=== PATIENT | female | born 1945 | race Caucasian/White ===

== ENCOUNTER 2022-08-08 08:55 | Outpatient (OUT) | payer MEDICARE, SELFPAY ==
--- NOTE | 2022-08-08 09:14 | CT_ITS ---
The [address] [address] Patient Name: NORA COON MRN: [id number] date: 1945 Sex: F Assigned Patient Location: CT Current Patient Location: CT Accession/Order Number: [id number] Exam Date: 08/08/2022 09:25 Report Date: 08/08/2022 12:47 At the request of: GOOD DAN Procedure: CT lung screening low-dose EXAMINATION: CT lung screening low-dose HISTORY: SMOKER COMPARISON: No relevant comparison available. TECHNIQUE: Axial, Coronal, and Sagittal images were created without the administration of IV contrast material. Dose reduction techniques were achieved by using automated exposure control and/or adjustment of mA and/or kV according to patient size and/or use of iterative reconstruction technique. FINDINGS: LUNGS: 7 mm poorly marginated opacity within left lower lobe superior segment. Tiny calcified granuloma within right lower lobe lateral basilar segment. Mild emphysematous changes. PLEURA: No mass, effusion, or pneumothorax. VASCULATURE: No abnormality. PHILLY: No mass or pathologic adenopathy. MEDIASTINUM: No mass or pathologic adenopathy. CARDIAC: No enlargement, pericardial thickening, or significant calcification. AORTA: No aneurysm or dissection. CHEST WALL: No mass or axillary adenopathy BONES: Marked degenerative changes of the glenohumeral joints bilaterally. No bone lesion or fracture. LIMITED ABDOMEN: No suspicious findings. Limited images of the upper abdomen. OTHER: Negative. IMPRESSION: 1. Lung-RADS Category 4A- Suspicious. Findings for which additional diagnostic testing and/ or tissue sampling is recommended. 3 month LDCT; PET/CT may be used when there is a >= 8 mm solid component. 2. Nonspecific nodule versus infiltrate within left lower lobe superior segment. Follow-up CT chest in 3 months is recommended to document stability. Electronically authenticated by: ABIDA REICH Date: 08/08/2022 12:47
== END 2022-08-08 08:56 ==
LOC: CT 09:03
PROVIDERS: PCP Family Medicine; Visit Provider Nurse Practitioner Family
DX: Z87.891 Personal history of nicotine dependence (principal); R91.8 Other nonspecific abnormal finding of lung field
CPT/HCPCS: 71271

== ENCOUNTER 2022-10-03 15:25 | Outpatient (OUT) | payer MEDICARE, SELFPAY ==
[2022-10-03 15:40] LABS: Bilirubin Urine NEGATIVE (NEGATIVE); Blood Urine NEGATIVE (NEGATIVE); Clarity Urine CLEAR (CLEAR); Color Urine LT. YELLOW (YELLOW); Glucose Urine UA NEGATIVE (NEGATIVE); Ketones Urine NEGATIVE (NEGATIVE); Leukocyte Esterase Urine NEGATIVE (NEGATIVE); Nitrite Urine NEGATIVE (NEGATIVE); Protein Urine NEGATIVE (NEG/TRACE); Urobilinogen Urine 0.2 EU/dL (0.2-1.0); pH Urine 6.5 (5.0-9.0)
[2022-10-03 15:42] LABS: Hematocrit 33.6 % (36.0-48.0); Hemoglobin 11.4 g/dL (12.0-16.0); Mean Corpuscular HGB Conc 33.9 g/dL (29.9-35.2); Mean Corpuscular Hemoglobin 32.4 pg (26.7-34.0); Mean Corpuscular Volume 95.5 fL (81.0-99.0); Mean Platelet Volume 9.4 fL (9.5-13.5); Platelet Count 352 10^3/uL (150-450); Red Blood Count 3.52 10^6/uL (4.20-5.40); Red Cell Distribution Width 13.4 % (11.0-15.0); White Blood Count 7.9 10^3/uL (4.0-11.0)
[2022-10-03 16:09] LABS: Total Protein Urine Random <6.0 mg/dL (<=11.9)
[2022-10-03 16:14] LABS: Percent Iron Saturation 12.3 %
[2022-10-03 16:24] LABS: Alanine Aminotransferase 19 U/L (14-59); Albumin Level 3.8 g/dL (3.4-5.0); Alkaline Phosphatase 88 U/L (46-116); Anion Gap 13.2; Aspartate Amino Transferase 11 U/L (15-37); BUN Creatinine Ratio 14.3; Bilirubin Total 0.3 mg/dL (0.2-1.0); Calcium 9.2 mg/dL (8.5-10.1); Carbon Dioxide 22.7 mmol/L (21.0-32.0); Chloride 93 mmol/L (98-107); Estimated GFR (African America 57 (>=60); Estimated GFR (Non-African Ame 47 (>=60); Globulin 3.7 g/dL; Glucose 99 mg/dL (74-106); Magnesium 2.1 mg/dL (1.8-2.4); Phosphorus 4.2 mg/dL (2.6-4.7); Potassium 3.9 mmol/L (3.5-5.1); Sodium 125 mmol/L (136-145); Total Protein 7.5 g/dL (6.4-8.2); Uric Acid 3.9 mg/dL (2.6-6.0)
[2022-10-04 11:11] LABS: PTH, Intact 23 pg/mL (15-65)
== END 2022-10-03 15:26 | disposition home or self-care (01) ==
LOC: LAB 10-06 10:44
PROVIDERS: PCP Family Medicine; Visit Provider Internal Medicine Nephrology
DX: I12.9 Hypertensive chronic kidney disease with stage 1 through stage 4 chronic kidney disease, or unspecified chronic kidney disease (principal); N18.4 Chronic kidney disease, stage 4 (severe); D64.9 Anemia, unspecified; E55.9 Vitamin D deficiency, unspecified; N20.0 Calculus of kidney
CPT/HCPCS: 36415; 80053; 81003; 82306; 82570; 82607; 82728; 82746; 83540; 83550; 83735; 83970; 84100; 84156; 84550; 85027

== ENCOUNTER 2022-11-19 10:14 | Outpatient (OUT) | payer MEDICARE, SELFPAY ==
--- NOTE | 2022-11-19 10:17 | CT_ITS ---
[address] [address] Patient Name: NORA COON MRN: [id number] date: 1945 Sex: F Assigned Patient Location: CT Current Patient Location: Accession/Order Number: [id number] Exam Date: 11/19/2022 10:25 Report Date: 11/20/2022 08:40 At the request of: ANA GARCIA Procedure: CT chest wo con EXAM: CT scan of the chest without contrast. Dose reduction technique used: Automated exposure control and/or adjustment of the mA and/or kV according to patient size and/or use of iterative reconstruction technique. REASON FOR EXAM: Multiple pulmonary nodules R91.8 COMPARISON: CT scan dated 07/23/2022 FINDINGS: Part-solid 7 mm left lower lobe pulmonary nodule. Medial right apical solid 4 mm pulmonary nodule. No acute airspace opacities. No pneumothorax. No pleural effusion. No acute fractures. No definite lymphadenopathy in the chest. Centrilobular emphysema in both lungs. Coronary atherosclerotic calcifications. Severe bilateral glenohumeral joint degenerative change. Remainder unremarkable. CT/CT chest wo con IMPRESSION: Part-solid 7 mm left lower lobe pulmonary nodule is not significantly changed. Recommend follow-up chest CT in one year. Electronically authenticated by: EVA BUENO Date: 11/20/2022 08:40
== END 2022-11-19 10:15 | disposition home or self-care (01) ==
LOC: CT 10:14
PROVIDERS: PCP Family Medicine; Visit Provider Internal Medicine
DX: R91.8 Other nonspecific abnormal finding of lung field (principal)
CPT/HCPCS: 71250

== ENCOUNTER 2023-03-20 14:19 | Outpatient (OUT) | payer MEDICARE, SELFPAY ==
[2023-03-20 15:00] LABS: Hematocrit 37.3 % (36.0-48.0); Hemoglobin 12.3 g/dL (12.0-16.0); Mean Corpuscular Hemoglobin 33.2 pg (26.7-34.0); Mean Corpuscular Volume 100.5 fL (81.0-99.0); Mean Platelet Volume 9.5 fL (9.5-13.5); Platelet Count 347 10^3/uL (150-450); Red Blood Count 3.71 10^6/uL (4.20-5.40); Red Cell Distribution Width 13.4 % (11.0-15.0); White Blood Count 8.4 10^3/uL (4.0-11.0)
[2023-03-20 15:05] LABS: Bilirubin Urine NEGATIVE (NEGATIVE); Blood Urine NEGATIVE (NEGATIVE); Clarity Urine CLEAR (CLEAR); Color Urine YELLOW (YELLOW); Glucose Urine UA NEGATIVE (NEGATIVE); Ketones Urine NEGATIVE (NEGATIVE); Leukocyte Esterase Urine NEGATIVE (NEGATIVE); Nitrite Urine NEGATIVE (NEGATIVE); Protein Urine NEGATIVE (NEG/TRACE); Urobilinogen Urine 0.2 EU/dL (0.2-1.0); pH Urine 5.5 (5.0-9.0)
[2023-03-20 15:08] LABS: Creatinine Urine Random 115.83 mg/dL (20.00-300.00); Protein Creatinine Ratio Urine 0.28; Total Protein Urine Random 32.1 mg/dL (<=11.9)
[2023-03-20 15:56] LABS: Alanine Aminotransferase 19 U/L (14-59); Albumin Level 3.8 g/dL (3.4-5.0); Alkaline Phosphatase 80 U/L (46-116); Anion Gap 13.9; Aspartate Amino Transferase 11 U/L (15-37); BUN Creatinine Ratio 30.4; Bilirubin Total 0.2 mg/dL (0.2-1.0); Calcium 9.3 mg/dL (8.5-10.1); Carbon Dioxide 22.4 mmol/L (21.0-32.0); Chloride 101 mmol/L (98-107); Estimated GFR (African America 56 (>=60); Estimated GFR (Non-African Ame 46 (>=60); Globulin 3.9 g/dL; Glucose 91 mg/dL (74-106); Magnesium 2.2 mg/dL (1.8-2.4); Phosphorus 4.6 mg/dL (2.6-4.7); Potassium 4.3 mmol/L (3.5-5.1); Sodium 133 mmol/L (136-145); Total Protein 7.7 g/dL (6.4-8.2)
[2023-03-20 16:19] LABS: Percent Iron Saturation 20.3 %
[2023-03-21 11:13] LABS: PTH, Intact 27 pg/mL (15-65)
== END 2023-03-20 14:20 | disposition home or self-care (01) ==
LOC: LAB 14:21
PROVIDERS: PCP Family Medicine; Visit Provider Internal Medicine Nephrology
DX: I12.9 Hypertensive chronic kidney disease with stage 1 through stage 4 chronic kidney disease, or unspecified chronic kidney disease (principal); N18.31 Chronic kidney disease, stage 3a; D64.9 Anemia, unspecified; E55.9 Vitamin D deficiency, unspecified; N20.0 Calculus of kidney
CPT/HCPCS: 36415; 80053; 81003; 82306; 82570; 82728; 82746; 83540; 83550; 83735; 83970; 84100; 84156; 85027

== ENCOUNTER 2023-03-31 10:41 | Outpatient (OUT) | payer MEDICARE, SELFPAY ==
--- NOTE | 2023-03-31 10:46 | XR_ITS ---
The [address] [address] Patient Name: NORA COON MRN: [facility]:[id number] date: 1945 Sex: F Assigned Patient Location: [facility] Current Patient Location: [facility] Accession/Order Number: [id number] Exam Date: 03/31/2023 10:55 Report Date: 03/31/2023 16:09 At the request of: GOOD DAN Procedure: XR cervical spine 2-3V EXAM: XR cervical spine 2-3V HISTORY: Neck Pain M54.2 COMPARISON: None. TECHNIQUE: 3 views of the cervical spine were obtained to include AP, lateral and odontoid views. FINDINGS: Vertebral body heights are grossly well-maintained. Mild to moderate disc space narrowing at C4-5 with moderate narrowing at C5-6 and mild narrowing at C6-7. Mild anterior spurring from C4-5 through C6-7. Mild posterior spurring at C5-6. Mild to moderate degenerative facet changes bilaterally. Mild 2 mm anterior offset of C3 vertebral body upon C4 and C4 vertebral body upon C5 likely related to ligament laxity/degenerative change. Atlantoaxial interval appears grossly unremarkable. No definite acute fracture or dislocation. Carotid artery calcifications are noted bilaterally. Stabilizing opacities at the mentum level of the mandible suggested, correlate clinically. XR/XR cervical spine 2-3V IMPRESSION: Cervical spine study demonstrates degenerative changes as described. Follow-up as needed. Electronically authenticated by: HUMZA LEA Date: 03/31/2023 16:09
--- OUTSIDE RECORDS SUMMARY | 2023-03-31 10:55 | XMS_ITS | CCD ---
Author Name Unknown Address [address] [place] [address] Organization [facility] Care Team Providers Care Wastewater Manager Name Role Phone Bri Alonso Unavailable NEAL, DR CARSON Luciano Admitting Unavailable FURLONG, DR CARSON Luciano Attending Unavailable FURLONG, DR CARSON Luciano Consulting Unavailable FURLONG, DR CARSON Luciano Primary Care Unavailable BAKDYLONSBRI Admitting Unavailable JOBY POLO Consulting Unavailable FURLONG, DR CARSON Luciano Primary Care Unavailable BAKHOUS, CRYSTALIZ Attending Unavailable BAKHOUS, CRYSTALIZ Consulting Unavailable BAKDYLONS, CRYSTALIZ Consulting Unavailable MISC, DR BANKS Admitting Unavailable FURLONG, DR CARSON Luciano Primary Care Unavailable MISC, DR BANKS Attending Unavailable SABRINA MANUEL Attending Unavailable SABRINA MANUEL Admitting Unavailable SABRINA MANUEL Consulting Unavailable FURLONG, DR CARSON Luciano Primary Care Unavailable SABRINA MANUEL Admitting Unavailable SABRINA MANUEL Attending Unavailable FURLONG, DR CARSON Luciano Consulting Unavailable FURLONG, DR CARSON Luciano Primary Care Unavailable SABRINA MAUNEL Consulting Unavailable FURLONG, DR CARSON Luciano Admitting Unavailable FURLONG, DR CARSON Luciano Attending Unavailable FURLONG, DR CARSON Luciano Consulting Unavailable FURLONG, DR CARSON Luciano Primary Care Unavailable Furlong Carson LEIVA Primary Care Provider AG HERNÁNDEZ Attending Unavailable GOOD DAN Referring Unavailable CARSON SULLIVAN Primary Care Unavailable GOOD DAN Referring Unavailable FURLOCARSON PERLA Primary Care Unavailable Allergies Allergy Classification Reported Allergen(s) Allergy Type Date of Onset Reaction(s) Facility (9 sources) hydroCHLOROthiaz parish; Translations: [HYDROCHLOROTHIA ZIDE] Drug Allergy 02-10-[address] [facility] (1 source) Sulfonamides (Antibiotic) Drug allergy (disorder) [facility] (5 sources) HMG-CoA reductase inhibitor; Translations: [BHVOLBI-PWR-ZDV REDUCTASE INHIBITORS] Propensity to adverse reactions to drug 02-10-[address] [facility] (5 sources) nickel; Translations: [NICKEL] Drug Allergy 02-10-20 Rash [facility] (5 sources) Sulfonamides (Antibiotic); Translations: [SULFA (SULFONAMIDE ANTIBIOTICS)] Propensity to adverse reactions to drug 11-16-19 22 Photosensitivity [facility] Medications Current Medications Medication Drug Class(es) Dates Sig (Normalized) Sig (Original) acetaminophen 325 mg / HYDROcodone bitartrate 7.5 mg oral tablet (8 sources) Opioid Agonist Start: 03-03-2023 HYDROcodone-acetami nophen (NORCO) 7.5-325 mg per tablet Indications: Lumbosacral spondylosis without myelopathy Take 1 tablet by mouth every 6 (six) hours as needed for pain. Max Daily Amount: 4 tablets 120 tablet 0 03/03/2023 Active Start: 03-03-2023 HYDROcodone-ac etaminophen (NORCO) 7.5-325 mg per tablet Indications: Lumbosacral spondylosis without myelopathy Take 1 tablet by mouth every 6 (six) hours as needed for pain. Max Daily Amount: 4 tablets 120 tablet 0 03/03/2023 Active Start: 02-08-2023 End: 03-03-2023 HYDROcodone-acetaminophen (N ORCO) 7.5-325 mg per tablet Indications: Lumbosacral spondylosis without myelopathy Take 1 tablet by mouth every 6 (six) hours as needed for pain. Max Daily Amount: 4 tablets 120 tablet 0 02/08/2023 Active Vicodin 7.5 mg P RN Active acetaminophen 325 mg / oxyCODONE hydrochloride 5 mg oral tablet (3 sources) Opioid Agonist take 1 tablet by mouth every six hours oxyCODONE-Acetaminophen 5-325 MG 1 tablet as needed Orally every 6 hrs Active amLODIPine 10 mg oral tablet (8 sources) Dihydropyridine Calcium Channel Akhil Start: 2022 take 1 tablet by mouth once daily amLODIPine (NORVASC) 10 mg tablet take 1 tablet by mouth once daily 90 tablet 5 12/21/2022 Active ascorbic acid 1000 mg oral tablet (6 sources) Vitamin C ascorbic acid, v itamin C, (VITAMIN C) 1000 mg tablet as directed Orally 0 Active Vitamin C - as d irected Orally Active aspirin 81 mg chewable tablet (8 sources) Platelet Aggregation Inhibitor, Nonsteroidal Anti-inflammatory Drug take 1 tablet by mouth every twenty-four hours Aspirin 81 MG 1 tablet Orally Once a day for 30 day(s) Active take 1 tablet by mouth once [place] y aspirin (LORIE LOW DOSE ASPIRIN) 81 mg 1 tablet Orally Once a day for 30 day(s) 0 Active benzonatate 100 mg oral capsule (7 sources) Non-narcotic Antitussive Start: 10-20-2022 take 1 capsule by mouth three times daily as needed for cough benzonatate (TESSALON PERLES) 100 mg capsule Take 1 capsule (100 mg total) by mouth 3 (three) times a day as needed for cough. 30 capsule 0 10/20/2022 Active take 1 capsule by mo [facility] three times daily as needed Benzonatate 200 MG 1 capsule Orally Thre e times a day as needed for 30 days Not-Taking Calcium 600 + D 600-200 MG-UNIT (4 sources) [facility] Calcium 600 + D 600-200 MG-UNIT 1 tablet with a meal Orally Once a day for 30 day(s) Active take 1 tablet by mouth once [place] y Calcium 600 + D 600-200 MG-UNIT 1 tablet with a meal Orally Once a day for 30 day(s) Not-Taking Centrum Silver - (1 source) Centrum Silver - as directed Orally Active cholecalciferol 0.05 mg oral capsule (2 sources) Vitamin D take 1 capsule by mouth every twenty-four hours Vitamin D3 50 MCG (2000 UT) 1 capsule Orally Once a day Active docusate sodium 100 mg oral tablet (4 sources) take 1 tablet by mouth every twenty-four hours Stool Softener 100 MG 1 tablet as needed Orally Once a day for 30 day(s) Active fluticasone propionate 0.05 mg/actuat metered dose nasal spray (4 sources) Corticosteroid Start: take 1 spray(s) nasal route in the morning fluticasone propionate (FLONASE) 50 mcg/actuation nasal spray Administer 1 spray into each nostril in the morning. 9.9 mL 1 10/19/2022 Active fsh/flx/prim/cur/bor/om3 ,6,9 5 (OMEGA 3-6-9 FATTY ACIDS ORAL) (4 sources) fsh/flx/prim/cur /bor/ om3,6,9 5 (OMEGA 3-6-9 FATTY ACIDS ORAL) as directed Orally 0 Active Iron (1 source) take 1 tablet by mouth once daily Iron 28 MG 1 tablet Orally Once a day for 30 day(s) Active lactobacillus acidophilus [id number] unt oral capsule (4 sources) Lactobacillus acidophilus (PROBIOTIC) 10 billion cell capsule 1 capsule See Admin Instructions. 0 Active levothyroxine sodium 0.112 mg oral tablet (8 sources) l-Thyroxine Start: take 1 tablet by mouth once daily in the morning levothyroxine (SYNTHROID, LEVOTHROID) 112 MCG tablet take 1 tablet by mouth every morning 90 tablet 3 11/09/2022 Active take 1 tablet by nabeel th once daily in the morning Levothyroxine Sodium 112 MCG 1 tablet on an empty stomach in the morning Orally Once a day for 30 day(s) Active lisinopril 40 mg oral tablet (8 sources) Angiotensin Converting Enzyme Inhibitor Start: 09-29-2022 take 1 tablet by mouth once daily lisinopriL (PRINIVIL,ZESTRIL) 40 mg tablet take 1 tablet by mouth once daily 90 tablet 3 09/29/2022 Active loratadine 10 mg oral tablet (7 sources) take 1 tablet by mouth in the morning, then take 1 tablet by mouth once daily loratadine (CLARITIN) 10 mg tablet Take 1 tablet (10 mg total) by mouth in the morning. Take one tablet by mouth daily. 0 Active LORazepam 1 mg oral tablet (2 sources) Benzodiazepine take 1 tablet by mouth every twenty-four hours LORazepam 1 MG 1 tablet at bedtime as needed Orally Once a day Active 24 hr metoprolol succinate 25 mg extended release oral tablet (8 sources) beta-Adrenergic Akhil Start: 10-28-2022 take 1 tablet by mouth once daily in the morning metoprolol succinate XL (TOPROL XL) 25 mg 24 hr tablet Indications: Essential hypertension take 1 tablet by mouth every morning 90 tablet 1 10/28/2022 Active ul-jjk-byych-calci um carb-K1 400 mcg-500 mg calcium-20 mcg tablet (4 sources) Start: 05-02-2022 take 1 tablet by mouth once in the morning sr-jcf-nhtbe-calcium carb-K1 400 mcg-500 mg calcium-20 mcg tablet Take 1 tablet by mouth in the morning. 90 tablet 0 05/02/2022 Active naloxone hydrochloride 40 mg/ml nasal spray (4 sources) Opioid Antagonist naloxone (NARC AN) 4 mg/actuation spray,non-aerosol nasal spray Administer 1 spray (4 mg total) into each nostril as needed. 1 spray Q2-3 minutes as needed 0 Active 24 hr niacin 1000 mg extended release oral tablet (5 sources) Nicotinic Acid take 1 tablet by mouth twice daily at mealtime niacin 1,000 mg tablet extended release 1 tablet with food Orally BID 0 Active take 1 tablet by nabeel th every twenty-four hours Niacin ER 1000 MG 1 tablet with food Orally Once a day for 30 day(s) Not-Taking Marissa 3 1000 MG (4 sources) take 1 capsule by mouth once daily Marissa 3 1000 MG 1 capsule Orally Once a day for 30 day(s) Active omeprazole 20 mg delayed release oral capsule (9 sources) Proton Pump Inhibitor Start: 10-17-2022 End: 03-20-2023 omeprazole (PriLOSEC) 20 mg capsule TAKE 1 CAPSULE TWICE DAILY 180 capsule 1 03/20/2023 Active take 1 tablet by mouth every twe lve hours PriLOSEC OTC 20 MG 1 tablet Orally TWICE A DAY for 30 days Active take 1 tablet by mouth twice shen ly PriLOSEC OTC 20 MG 1 tablet Orally TWICE A DAY for 30 days Active take 1 tablet by mouth once [place] y PriLOSEC OTC 20 MG 1 tablet Orally Once a day for 30 day(s) Active polyethylene glycol 3350 170 00 mg powder for oral solution (4 sources) Osmotic Laxative polyethylene gl ycol (GLYCOLAX) 17 gram/dose powder Take 17 g by mouth in the morning. 0 Active Polyethylene Glycols (4 sources) Polyethylene Gly col 3350 - 1 packet mixed with 8 ounces of fluid Orally ONCE A DAY NEEDED for 30 days Active Polyethylene Gly col 3350 - 1 packet mixed with 8 ounces of fluid Orally Once a day for 30 day(s) *please review for potential _update for e-prescription and drug interaction check* Active Polyethylene Gly col 3350 - 1 packet mixed with 8 ounces of fluid Orally Once a day for 30 day(s) *please review for potential _update for e-prescription and drug interaction check* Not-Taking potassium chloride 10 meq extended release oral capsule (4 sources) potassium chlori de (KLOR-CON SPRINKLE) 10 MEQ CR capsule 2 capsules with food Orally Once a day 0 Active saccharomyces boulardii 250 mg oral capsule (4 sources) take 1 capsule by mo uth every twenty-four hours Probiotic 250 MG 1 capsule Orally once a day for 30 days Active take 1 capsule by mo uth every twelve hours Probiotic 250 MG 1 capsule Orally Twice a day for 30 day(s) Active sertraline 50 mg oral tablet (6 sources) Serotonin Reuptake Inhibitor Start: 11-08-2022 take 1 tablet by mouth once daily in the morning sertraline (ZOLOFT) 50 mg tablet take 1 tablet by mouth every morning 90 tablet 1 11/08/2022 Active Super B-Complex - (4 sources) Super B-Complex - as directed Orally Active Super B-Complex - as directed Orally Not-Taking vitamin e 268 mg oral capsule (4 sources) take 1 tablet by nabeel th once daily vitamin E 400 units capsule 1 tablet Orally Once a day for 30 day(s) 0 Active Completed/Discontinued Medications Medication Drug Class(es) Dates Sig (Normalized) Sig (Original) Co Q-10 50 MG (1 source) take 1 capsule by mouth once daily Co Q-10 50 MG 1 capsule with a meal Orally Once a day for 30 day(s) Not-Taking gabapentin 300 mg oral capsule (1 source) Anti-epileptic Agent take 1-2 capsules by mouth twice daily Gabapentin 300 mg 1-2 capsule Orally twice a day for 30 day(s) Not-Taking giuseppe root 550 mg oral capsule (1 source) Giuseppe Root 550 MG as directed Orally Not-Taking lutein 6 mg oral capsule (8 sources) take 1 capsule by mouth every twenty-four hours Lutein 6 MG 1 capsule with a meal Orally Once a day for 30 day(s) Not-Taking/PRN take 1 tablet by nabeel th every twenty-four hours lutein 10 mg tablet Take 1 tablet by mouth daily. 0 Active MS Contin 30 MG (1 source) Start: 02-19-2018 take 1 tablet by mouth every twelve hours MS Contin 30 MG 1 tablet Orally every 12 hrs for 7 days *please review for potential _update for e-prescription and drug interaction check* Feb, Not-Taking oxyCODONE hydrochloride 30 mg oral tablet (1 source) Opioid Agonist take 0.5 tablet by mouth every six hours oxyCODONE HCl 30 MG 0.5 tablet as needed Orally every 6 hrs 15 mg Not-Taking potassium 99 mg extended release oral tablet (1 source) take 1 tablet by mouth once daily Potassium 99 MG 1 tablet Orally Once a day for 30 day(s) Not-Taking Psyllium (1 source) Psyllium 100 % 1 packet with 8 ounces of liquid as needed Orally Three times a day *please review for potential _update for e-prescription and drug interaction check* Not-Taking Vitamin D3 2000 UNIT (1 source) take 1 capsule by mouth once daily Vitamin D3 2000 UNIT 1 capsule Orally Once a day for 30 day(s) *please review for potential _update for e-prescription and drug interaction check* Not-Taking Vitamin E 400 UNIT (1 source) take 1 capsule by mouth once daily Vitamin E 400 UNIT 1 capsule Orally Once a day for 30 day(s) Not-Taking Problems Active Problems Problem Classification Problem Date Documented Da te Episodic/Chronic Anxiety disorders (4 sources) Anxiety; Translations: [Anxiety disorder, unspecified] Onset: 11-16-2021 11-16-2021 Chronic Asthma (4 sources) Reactive airway disease; Translations: [Unspecified asthma, uncomplicated] Onset: 11-16-2021 11-16-2021 Chronic Calculus of urinary tract (7 sources) Kidney stone; Translations: [Calculus of kidney] Onset: 05-08-2022 Episodic Cataract (8 sources) Age-related nuclear cataract, right eye; Translations: [Age-related nuclear cataract, left eye] Onset: 10-07-2021 Chronic Chronic kidney disease (13 sources) Chronic kidney disease stage 4; Translations: [Chronic kidney disease, stage 4 (severe)] Onset: 06-08-2022 Chronic Deficiency and other anemia (3 sources) Anemia, unspecified Episodic Disorders of lipid metabolism (9 sources) Hyperlipidemia, unspecified; Translations: [Pure hypercholesterolemia , unspecified] Onset: 10-11-2021 Chronic Esophageal disorders (5 sources) Gastro-esophageal reflux disease without esophagitis; Translations: [Gastroesophageal reflux disease] Onset: 10-11-2021 11-16-2021 Chronic Essential hypertension (5 sources) Essential (primary) hypertension; Translations: [Essential hypertension] Onset: 05-03-2021 11-16-2021 Chronic Headache; including migraine (4 sources) Migraine; Translations: [Migraine, unspecified, not intractable, without status migrainosus] Onset: 11-16-2021 11-16-2021 Chronic Hypertension with complications and secondary hypertension (16 sources) Hypertensive renal disease; Translations: [Hypertensive chronic kidney disease with stage 1 through stage 4 chronic kidney disease, or unspecified chronic kidney disease] Onset: 03-31-2022 Resolved: 10-19-2022 Chronic Nutritional deficiencies (10 sources) Vitamin D deficiency; Translations: [Vitamin D deficiency, unspecified] Onset: 11-16-2021 Chronic Other diseases of kidney and ureters (1 source) Cyst of kidney, acquired; Translations: [CYST OF KIDNEY ACQUIRED] Onset: 05-08-2022 Episodic Other diseases of kidney and ureters (4 sources) Disorder of kidney and ureter, unspecified; Translations: [DISORDER KIDNEY AND URETER UNS] Onset: 03-25-2022 Episodic Other nervous system disorders (4 sources) Chronic pain syndrome; Translations: [Chronic pain syndrome] Chronic Other upper respiratory disease (4 sources) Allergic rhinitis; Translations: [Allergic rhinitis, unspecified] Onset: 09-21-2020 11-16-2021 Chronic Peripheral and visceral atherosclerosis (4 sources) Peripheral vascular disease; Translations: [Peripheral vascular disease, unspecified] Onset: 02-01-2021 11-16-2021 Chronic Spondylosis; intervertebral disc disorders; other back problems (20 sources) Degeneration of intervertebral disc; Translations: [Degeneration of intervertebral disc] Onset: 11-16-2021 11-16-2021 Chronic Substance-related disorders (5 sources) Nicotine dependence, cigarettes, uncomplicated; Translations: [Tobacco dependence syndrome] Onset: 10-11-2021 11-16-2021 Chronic Thyroid disorders (5 sources) Hypothyroidism, unspecified; Translations: [Hypothyroidism] Onset: 11-16-2021 11-16-2021 Chronic Past or Other Problems Problem Classification Problem Date Documented Da te Episodic/Chronic Abdominal hernia (4 sources) Hiatal hernia; Translations: [Diaphragmatic hernia without obstruction or gangrene] Onset: 11-16-2021 11-16-2021 Episodic Chronic kidney disease (2 sources) Chronic kidney disease Complications of surgical procedures or medical care (4 sources) Complication of surgical procedure; Translations: [Unspecified complication of procedure, initial encounter] Onset: 10-26-2018 11-16-2021 Episodic Diabetes mellitus without complication (4 sources) Hyperglycemia; Translations: [Hyperglycemia, unspecified] Onset: 06-20-2016 11-16-2021 Episodic Fluid and electrolyte disorders (4 sources) Hypokalemia; Translations: [Hypokalemia] Onset: 11-16-2021 11-16-2021 Episodic Mood disorders (4 sources) Mood disorders Onset: 02-09-2023 02-09-2023 Other bone disease and musculoskeletal deformities (4 sources) Osteopenia; Translations: [Other specified disorders of bone density and structure, unspecified site] Onset: 11-16-2021 11-16-2021 Episodic Other circulatory disease (4 sources) Femoral bruit; Translations: [Other specified symptoms and signs involving the circulatory and respiratory systems] Onset: 11-16-2021 11-16-2021 Episodic Other connective tissue disease (1 source) Myalgia, unspecified site; Translations: [MYALGIA UNSPECIFIED SITE] Onset: 11-19-2021 Episodic Other connective tissue disease (4 sources) Acquired trigger finger; Translations: [Trigger finger, unspecified finger] Onset: 11-16-2021 11-16-2021 Episodic Other connective tissue disease (4 sources) Fibromyalgia; Translations: [Fibromyalgia] Onset: 11-16-2021 11-16-2021 Episodic Other non-epithelial cancer of skin (4 sources) Basal cell carcinoma of skin; Translations: [Basal cell carcinoma of skin, unspecified] Onset: 11-16-2021 11-16-2021 Episodic Other nutritional; endocrine; and metabolic disorders (4 sources) Overweight; Translations: [Overweight] Onset: 06-15-2016 Resolved: 07-18-2022 07-18-2022 Episodic Residual codes; unclassified (1 source) Acquired absence of both cervix and uterus; Translations: [ACQUIRED ABSENCE BOTH CERVIX AND UTERUS] Onset: 10-11-2021 Episodic Spondylosis; intervertebral disc disorders; other back problems (5 sources) Spinal stenosis of lumbar region; Translations: [Spinal stenosis, lumbar region without neurogenic claudication] Onset: 09-14-2017 11-16-2021 Episodic Results Test Name Value Interpretation Reference Range Facility PTH INTACTon 06-02-2022 PTH, Intact 14 pg/mL Critically low 15-[address] [facility] Comment on above: Performed By: #### P THINT ####[facility] [address] [place] [address]Dr. Ashok Bailey HEMOGRAM AND PLATELon 2022 Hematocrit (Bld) [Volume fraction] 32.0 % Critically low 36.0-48.0 [facility] Comment on above: Performed By: #### H H ####[facility] [address] [place] [address]Dr. Ashok Bailey Hemoglobin (Bld) [Mass/Vol] 10.6 g/dL Critically low 12.0-16.0 [facility] Comment on above: Performed By: #### H H ####[facility] [address] [place] [address]Dr. Ashok Bailey MCH (RBC) [Entitic mass] 31.4 pg Normal 26.7-34.0 [facility] Comment on above: Performed By: #### H H ####[facility] [address] [place], [place] [address]Dr. Ashok Bailey MCHC (RBC) [Mass/Vol] 33.1 g/dL Normal 29.9-35.2 [facility] Comment on above: Performed By: #### H H ####[facility] [address] [place], [place] [address]DrAlex Bailey MCV (RBC) [Entitic vol] 94.7 fL Normal 81.0-99.0 [facility] Comment on above: Performed By: #### H H ####[facility] [address] [place] [address]DrAlex Bailey PLT 345 103/ul Normal 150-450 [facility] Comment on above: Performed By: #### H H ####[facility] [address] [place] [address]DrAlex Bailey RBC 3.38 106/ul Critically low 4.20-5.40 [facility] Comment on above: Performed By: #### H H ####[facility] [address] [place] [address]Dr. Ashok Bailey WBC 8.4 103/ul Normal 4.0-11.0 [facility] Comment on above: Performed By: #### H H ####[facility] [address] [place] [address]Dr. Ashok Bailey MAGNESIUMon 06-01-2022 Magnesium [Mass/Vol] 1.8 mg/dL Normal 1.8-2.4 [facility] Comment on above: Performed By: #### C MP, URIC, MG, PHOS ####[facility] [address] [place], [place] [address]Dr. Ashok Bailey PHOSPHORUSon 06-01-2022 Phosphate [Mass/Vol] 4.0 mg/dL Normal 2.6-4.7 [facility] Comment on above: Performed By: #### C MP, URIC, MG, PHOS ####[facility] [address] [place], [place] [address]Dr. Ashok Bailey PROF 14(COMP METB)on 023 Albumin [Mass/Vol] 3.8 g/dL Normal 3.4-5.0 [facility] Comment on above: Performed By: #### C MP, URIC, MG, PHOS ####[facility] [address] [place] [address]Dr. Ashok Bailey Albumin/Globulin [Mass ratio] 1.1 {ratio} Normal [facility] Comment on above: Performed By: #### C MP, URIC, MG, PHOS ####[facility] [address] [place] [address]Dr. Ashok Bailey ALP [Catalytic activity/Vol] 96 U/L Normal 46-116 [facility] Comment on above: Performed By: #### C MP, URIC, MG, PHOS ####[facility] [address] [place] [address]Dr. Ashok Bailey ALT [Catalytic activity/Vol] 17 U/L Normal 14-59 [facility] Comment on above: Performed By: #### C MP, URIC, MG, PHOS ####[facility] [address] [place] [address]Dr. Ashok Bailey Anion gap [Moles/Vol] 15.4 mmol/L Normal [facility] Comment on above: Performed By: #### C MP, URIC, MG, PHOS ####[facility] [address] [place] [address]Dr. Ashok Bailey AST [Catalytic activity/Vol] 15 U/L Normal 15-37 [facility] Comment on above: Performed By: #### C MP, URIC, MG, PHOS ####[facility] [address] [place], [place] [address]Dr. Ashok Bailey Bilirubin [Mass/Vol] 0.3 mg/dL Normal 0.2-1.0 [facility] Comment on above: Performed By: #### C MP, URIC, MG, PHOS ####[facility] [address] [place], [place] [address]Dr. Ashok Bailey Calcium [Mass/Vol] 9.1 mg/dL Normal 8.5-10.1 [facility] Comment on above: Performed By: #### C MP, URIC, MG, PHOS ####[facility] [address] [place], [place] [address]Dr. Ashok Bailey Chloride [Moles/Vol] 103 mmol/L Normal 98-107 [facility] Comment on above: Performed By: #### C MP, URIC, MG, PHOS ####[facility] [address] [place], [place] [address]Dr. Ashok Bailey CO2 [Moles/Vol] 24.9 mmol/L Normal 21.0-32.0 [facility] Comment on above: Performed By: #### C MP, URIC, MG, PHOS ####[facility] [address] [place], [place] [address]Dr. Ashok Bailey Creatinine [Mass/Vol] 1.35 mg/dL Critically high 0.55-1.02 [facility] Comment on above: Performed By: #### C MP, URIC, MG, PHOS ####[facility] [address] [place] [address]Dr. Ashok Bailey EGFR-AF CROATIAN 46 mL/min/1.73m2 Critically low >=60 [facility] Comment on above: Performed By: #### C MP, URIC, MG, PHOS ####[facility] [address] [place] [address]Dr. Ashok Bailey EGFR-NON AF CROATIAN 38 mL/min/1.73m2 Critically low >=60 [facility] Comment on above: Performed By: #### C MP, URIC, MG, PHOS ####[facility] [address] [place], [place] [address]Dr. Ashok Bailey Globulin (S) [Mass/Vol] 3.4 g/dL Normal The [facility] Comment on above: Performed By: #### C MP, URIC, MG, PHOS ####[facility] [address] [place], [place] [address]Dr. Ashok Bailey Glucose [Mass/Vol] 86 mg/dL Normal 74-106 [facility] Comment on above: Performed By: #### C MP, URIC, MG, PHOS ####[facility] [address] [place], [place] [address]Dr. Ashok Bailey Potassium [Moles/Vol] 4.3 mmol/L Normal 3.5-5.1 [facility] Comment on above: Performed By: #### C MP, URIC, MG, PHOS ####[facility] [address] [place], [place] [address]Dr. Ashok Bailey Protein [Mass/Vol] 7.2 g/dL Normal 6.4-8.2 [facility] Comment on above: Performed By: #### C MP, URIC, MG, PHOS ####[facility] [address] [place], [place] [address]Dr. Ashok Bailey Sodium [Moles/Vol] 139 mmol/L Normal 136-145 [facility] Comment on above: Performed By: #### C MP, URIC, MG, PHOS ####[facility] [address] [place] [address]Dr. Ashok Bailey Urea nitrogen [Mass/Vol] 20.0 mg/dL Critically high 7.0-18.0 [facility] Comment on above: Performed By: #### C MP, URIC, MG, PHOS ####[facility] [address] [place] [address]Dr. Ashok Bailey Urea nitrogen/Creatinine [Mass ratio] 14.8 mg/mg Normal [facility] Comment on above: Performed By: #### C MP, URIC, MG, PHOS ####[facility] [address] [place] [address]Dr. Ashok Bailey UA RANDOMon 06-01-2022 Bilirubin Ql (U) Negative Normal NEGATIVE [facility] Comment on above: Performed By: #### U A #### [facility] [address] [place] [address] Dr. Ashok Bailey Clarity (U) CLEAR Normal CLEAR [facility] Comment on above: Performed By: #### U A #### [facility] [address] [place] [address] Dr. Ashok Bailey Color (U) LT. YELLOW Normal YELLOW [facility] Comment on above: Performed By: #### U A #### [facility] [address] [place] [address] Dr. Ashok Bailey Glucose Ql (U) Negative Normal NEGATIVE [facility] Comment on above: Performed By: #### U A #### [facility] [address] [place] [address] Dr. Ashok Bailey Hemoglobin Ql (U) Negative Normal NEGATIVE [facility] Comment on above: Performed By: #### U A #### [facility] [address] [place] [address] Dr. Ashok Bailey Ketones Ql (U) Negative Normal NEGATIVE [facility] Comment on above: Performed By: #### U A #### [facility] [address] [place] [address] Dr. Ashok Bailey LEUKOCYTES Negative Normal NEGATIVE [facility] Comment on above: Performed By: #### U A #### [facility] [address] [place] [address] [address] Ashok Bailey Nitrite Ql (U) Negative Normal NEGATIVE [facility] Comment on above: Performed By: #### U A #### [facility] [address] [place] [address] Dr. Ashok Bailey pH (U) 6.0 [pH] Normal 5-9 [facility] Comment on above: Performed By: #### U A #### [facility] [address] [place] [address] [address] Ashok Bailey SPEC GRAVITY 1.010 Normal 1.005-<=1.025 [facility] Comment on above: Performed By: #### U A #### [facility] [address] [place] [address] Dr. Ashok Bailey UA PROTEIN Negative Normal NEGATIVE/ TRACE [facility] Comment on above: Performed By: #### U A #### [facility] [address] [place] [address] Dr. Ashok Bailey Urobilinogen Qn (U) 0.2 {Drew'U}/dL Normal 0.2 - 1. 0 [facility] Comment on above: Performed By: #### U A #### [facility] [address] [place] [address] Dr. Ashok Bailey URIC ACID SERUMon 06-01-2022 Urate [Mass/Vol] 3.9 mg/dL Normal 2.6-6.0 The [facility] Comment on above: Performed By: #### C MP, URIC, MG, PHOS ####[facility] [address] [place] [address]Dr. Ashok Bailey URINE T PROTEIN CREAT RATIOo n 06-01-2022 Protein (U) [Mass/Vol] 14.0 mg/dL Critically high <=12.0 [facility] Comment on above: Performed By: #### U RTPCR #### [facility] [address] [place] [address] [address] Ashok Bailey UR PROT CREAT RAT 0.28 Normal [facility] Comment on above: Performed By: #### U RTPCR #### [facility] [address] [place], [place] [address] Dr. Ashok Bailey URINE CREAT 50.47 mg/dL Normal 20.00-300.00 [facility] Comment on above: Performed By: #### U RTPCR #### [facility] [address] [place], [place] [address] Dr. Ashok Bailey VITAMIN D 25 OHon 06-01-2022 VIT D 25-OH 19.2 ng/mL Normal [facility] Comment on above: Performed By: #### F T4 #### [facility] [address] [place] [address] [address] [address] Ashok Bailey VIT D RANGES SEE BELOW Normal [facility] Comment on above: Result Comment: <20 ng/mL Vit D deficient 20 - <30 ng/mL Vit D insufficient 30 - 100 ng/mL Vit D sufficient >100 ng/mL Potential Toxicity Performed By: #### F T4 #### [facility] [address] [place] [address] Dr. Ashok Bailey US KIDNEYSon 05-03-2022 US KIDNEYS US KIDNEYS EXAM DATE: 05/03/2022 7:10 AM MST COMPARISON: None available. INDICATION: Stage IV chronic kidney disease. TECHNIQUE: Real-time ultrasound scanning of the kidneys and bladder was performed by the bandage wrapping machine operator. [employer] Service Station Manager static images are submitted for review. FINDINGS: Right Kidney: The right kidney measures 10 x 4.3 x 5 cm. No hydronephrosis. Echogenic focus at the inferior pole measures 0.4 x 0.4 x 0.2 cm and demonstrates twinkle artifact. Renal cyst measures 0.8 x 0.7 x 0.7 cm ; no internal vascularity is identified. Renal cortex measures 0.5 cm. Left Kidney: The left kidney measures 10.9 x 4.5 x 5.2 cm. No hydronephrosis. Clustered echogenic foci at the mid pole measures 0.7 x 0.5 x 0.3 cm and demonstrates associated twinkle artifact. A renal cyst measures 2.9 x 3.8 x 3.9 cm; no internal vascularity is identified. Renal cortex measures 0.6 cm. Bladder: Bladder volume measures up to 71 mL. There is circumferential bladder wall thickening versus artifact. Bladder jets were not interrogated on this study. IMPRESSION: 1. No hydronephrosis. 2. Bilateral nonobstructive renal calculi. 3. Bilateral renal cysts. 4. Possible circumferential bladder wall thickening versus artifact. Recommend correlation with urinalysis. Electronically authenticated by: JOBY POLO Date: 2022-05-03 12:33 Normal [facility] FREE T4on 03-25-2022 Free T4 [Mass/Vol] 1.26 ng/dL Normal 0.76-1.46 [facility] Comment on above: Performed By: #### F T4 #### [facility] [address] [place], [place] [address] Dr. Ashok Bailey PROF CHEM 8 (BAS METB)on Anion gap [Moles/Vol] 17.6 mmol/L Normal [facility] Comment on above: Performed By: #### B MP, TSH ####[facility] [address] [place] [address]Dr. Ashok Bailey Calcium [Mass/Vol] 8.9 mg/dL Normal 8.5-10.1 [facility] Comment on above: Performed By: #### B MP, TSH ####[facility] [address] [place] [id number]. Ashok Bailey Chloride [Moles/Vol] 97 mmol/L Critically low 98-107 [facility] Comment on above: Performed By: #### B MP, TSH ####[facility] [address] [place] [id number]. Ashok Bailey CO2 [Moles/Vol] 22.2 mmol/L Normal 21.0-32.0 [facility] Comment on above: Performed By: #### B MP, TSH ####[facility] [address] [place] [address]Dr. Ashok Bailey Creatinine [Mass/Vol] 2.42 mg/dL Critically high 0.55-1.02 [facility] Comment on above: Performed By: #### B MP, TSH ####[facility] [address] [place] [id number]. Ashok Bailey EGFR-AF CROATIAN 24 mL/min/1.73m2 Critically low >=60 [facility] Comment on above: Performed By: #### B ROBERTO, TSH ####[facility] [address] [place], [place] [address]Dr. Neelamandrew Leo EGFR-NON AF CROATIAN 20 mL/min/1.73m2 Critically low >=60 [facility] Comment on above: Performed By: #### B ROBERTO, TSH ####[facility] [address] [place], [place] [address]Dr. Ashok Bailey Glucose [Mass/Vol] 84 mg/dL Normal 74-106 [facility] Comment on above: Performed By: #### B ROBERTO, TSH ####[facility] [address] [place], [place] [address]Dr. Ashok Bailey Potassium [Moles/Vol] 4.8 mmol/L Normal 3.5-5.1 [facility] Comment on above: Performed By: #### Becki MEJIA, TSH ####[facility] [address] [place], [place] [address]Dr. Ashok Bailey Sodium [Moles/Vol] 132 mmol/L Critically low 136-145 [facility] Comment on above: Performed By: #### B ROBERTO, TSH ####[facility] [address] [place], [place] [address]Dr. Ashok Bailey Urea nitrogen [Mass/Vol] 43.0 mg/dL Critically high 7.0-18.0 [facility] Comment on above: Performed By: #### Becki MEJIA, TSH ####[facility] [address] [place], [place] [address]Dr. Ashok Bailey Urea nitrogen/Creatinine [Mass ratio] 17.8 mg/mg Normal [facility] Comment on above: Performed By: #### B ROBERTO, TSH ####[facility] [address] [place], [place] [address]Dr. Ashok Bailey TSHon 03-25-2022 TSH 2.368 uIU/mL Normal 0.358-3.740 [facility] Comment on above: Performed By: #### Becki MEJIA, TSH ####[facility] [address] [place] [address]Dr. Ashok Bailey CPKon 11-12-2021 CK [Catalytic activity/Vol] 207 U/L Critically high 26-192 [facility] Comment on above: Performed By: #### C MP, CK, TSH, LIPID #### [facility] [address] [place] [address] [address] Ashok Bailey FREE T4on 11-12-2021 Free T4 [Mass/Vol] 1.16 ng/dL Normal 0.76-1.46 [facility] Comment on above: Performed By: #### F T4 #### [facility] [address] [place] [address] [address] Ashok Bailey LIPID PROFILEon 11-12-2021 CHOL-HDL RATIO NORM SEE BELOW Normal [facility] Comment on above: Result Comment: 3.3 - 4.4 LOW RISK 4.4 - 7.1 AVERAGE RISK 7.1 - 11.0 MODERATE RISK >11.0 HIGH RISK Performed By: #### C MP, CK, TSH, LIPID #### [facility] [address] [place] [address] [address] Ashok Bailey Cholesterol [Mass/Vol] 215 mg/dL Critically high <=200 [facility] Comment on above: Performed By: #### C MP, CK, TSH, LIPID #### [facility] [address] [place] [address] [address] Ashok Bailey Cholesterol in HDL [Mass/Vol] 74 mg/dL Critically high 40-60 [facility] Comment on above: Performed By: #### C MP, CK, TSH, LIPID #### [facility] [address] [place] [address] [address] Ashok Bailey Cholesterol in LDL [Mass/Vol] 114.4 mg/dL Normal [facility] Comment on above: Performed By: #### C MP, CK, TSH, LIPID #### [facility] [address] [place] [address] [address] Ashok Bailey Cholesterol.total/C holesterol in HDL [Mass ratio] 2.9 {ratio} Normal [facility] Comment on above: Performed By: #### C MP, CK, TSH, LIPID #### [facility] [address] [place] [address] [address] Ashok Bailey HDL NORMAL > or = 60 mg/dl - LOW CARDIOVASCULAR RISK <40 mg/dl - HIGH CARDIOVASCULAR RISK Normal [facility] Comment on above: Performed By: #### C MP, CK, TSH, LIPID #### [facility] [address] [place] [address] [address] Ashok Bailey LDL CALC NORMAL SEE BELOW Normal [facility] Comment on above: Result Comment: <100 mg/dl OPTIMAL 100 - 129 mg/dl NEAR OR ABOVE OPTIMAL 130 - 159 mg/dl BORDERLINE HIGH 160 - 189 mg/dl HIGH >190 mg/dl VERY HIGH Performed By: #### C MP, CK, TSH, LIPID #### [facility] [address] [place] [address] [address] Ashok Bailey Triglyceride [Mass/Vol] 133 mg/dL Normal <=150 [facility] Comment on above: Performed By: #### C MP, CK, TSH, LIPID #### [facility] [address] [place] [address] [address] Ashok Bailey VLDL CALC 26.6 mg/dL Normal [facility] Comment on above: Performed By: #### C MP, CK, TSH, LIPID #### [facility] [address] [place] [address] [address] Ashok Bailey PROF 14(COMP METB)on 022 Albumin [Mass/Vol] 3.9 g/dL Normal 3.4-5.0 [facility] Comment on above: Performed By: #### C MP, CK, TSH, LIPID #### [facility] [address] [place] [address] [address] Ashok Bailey Albumin/Globulin [Mass ratio] 1.1 {ratio} Normal [facility] Comment on above: Performed By: #### C MP, CK, TSH, LIPID #### [facility] [address] [place] [address] [address] Ashok Bailey ALP [Catalytic activity/Vol] 84 U/L Normal 46-116 [facility] Comment on above: Performed By: #### C MP, CK, TSH, LIPID #### [facility] [address] [place] [address] [address] Ashok Bailey ALT [Catalytic activity/Vol] 18 U/L Normal 14-59 [facility] Comment on above: Performed By: #### C MP, CK, TSH, LIPID #### [facility] [address] [place] [address] [address] Ashok Bailey Anion gap [Moles/Vol] 15.1 mmol/L Normal [facility] Comment on above: Performed By: #### C MP, CK, TSH, LIPID #### [facility] [address] [place] [address] [address] Ashok Bailey AST [Catalytic activity/Vol] 11 U/L Critically low 15-37 [facility] Comment on above: Performed By: #### C MP, CK, TSH, LIPID #### [facility] [address] [place] [address] [address] Ashok Bailey Bilirubin [Mass/Vol] 0.3 mg/dL Normal 0.2-1.0 [facility] Comment on above: Performed By: #### C MP, CK, TSH, LIPID #### [facility] [address] [place] [address] [address] Ashok Bailey Calcium [Mass/Vol] 9.3 mg/dL Normal 8.5-10.1 [facility] Comment on above: Performed By: #### C MP, CK, TSH, LIPID #### [facility] [address] [place] [address] [address] Ashok Bailey Chloride [Moles/Vol] 101 mmol/L Normal 98-107 [facility] Comment on above: Performed By: #### C MP, CK, TSH, LIPID #### [facility] [address] [place] [address] [address] Ashok Bailey CO2 [Moles/Vol] 22.9 mmol/L Normal 21.0-32.0 [facility] Comment on above: Performed By: #### C MP, CK, TSH, LIPID #### [facility] [address] [place] [address] [address] Ashok Bailey Creatinine [Mass/Vol] 1.67 mg/dL Critically high 0.55-1.02 [facility] Comment on above: Performed By: #### C MP, CK, TSH, LIPID #### [facility] [address] [place] [address] Dr. Ashok Bailey EGFR-AF CROATIAN 36 mL/min/1.73m2 Critically low >=60 [facility] Comment on above: Performed By: #### C MP, CK, TSH, LIPID #### [facility] [address] [place] [address] Dr. Ashok Bailey EGFR-NON AF CROATIAN 30 mL/min/1.73m2 Critically low >=60 [facility] Comment on above: Performed By: #### C MP, CK, TSH, LIPID #### [facility] [address] [place] [address] Dr. Ashok Bailey Globulin (S) [Mass/Vol] 3.5 g/dL Normal [facility] Comment on above: Performed By: #### C MP, CK, TSH, LIPID #### [facility] [address] [place] [address] Dr. Ashok Bailey Glucose [Mass/Vol] 96 mg/dL Normal 74-106 [facility] Comment on above: Performed By: #### C MP, CK, TSH, LIPID #### [facility] [address] [place] [address] Dr. Ashok Bailey Potassium [Moles/Vol] 5.0 mmol/L Normal 3.5-5.1 [facility] Comment on above: Performed By: #### C MP, CK, TSH, LIPID #### [facility] [address] [place] [address] Dr. Ashok Bailey Protein [Mass/Vol] 7.4 g/dL Normal 6.4-8.2 [facility] Comment on above: Performed By: #### C MP, CK, TSH, LIPID #### [facility] [address] [place] [address] Dr. Ashok Bailey Sodium [Moles/Vol] 134 mmol/L Critically low 136-145 [facility] Comment on above: Performed By: #### C MP, CK, TSH, LIPID #### [facility] [address] [place], [place] [address] Dr. Ashok Bailey Urea nitrogen [Mass/Vol] 27.0 mg/dL Critically high 7.0-18.0 [facility] Comment on above: Performed By: #### C MP, CK, TSH, LIPID #### [facility] [address] [place], [place] [address] Dr. Ashok Bailey Urea nitrogen/Creatinine [Mass ratio] 16.2 mg/mg Normal [facility] Comment on above: Performed By: #### C MP, CK, TSH, LIPID #### [facility] [address] [place] [address] [address] Ashok Bailey TSHon 11-12-2021 TSH 3.073 uIU/mL Normal 0.358-3.740 [facility] Comment on above: Performed By: #### C MP, CK, TSH, LIPID #### [facility] [address] [place] [address] [address] Ashok Bailey COMPREHENSIVE METABOLIC PANE [place] 05-30-2021 Albumin [Mass/Vol] 4.7 g/dL Normal 3.6-5.1 [facility] Comment on above: Performed By: #### 7 600, [id number] #### [facility] [place] [address] Faith Doctor: Austin Tobin MD Albumin/Globulin [Mass ratio] 1.8 {ratio} Normal 1.0-2.5 [facility] Comment on above: Performed By: #### 7 600, 14979 #### [facility] [address] Faith Doctor: Austin Tobni MD ALP [Catalytic activity/Vol] 84 U/L Normal 37-153 [facility] Comment on above: Performed By: #### 7 600, 65171 #### [facility] [address] Faith Doctor: Austin Tobin MD ALT [Catalytic activity/Vol] 13 U/L Normal 6-29 [facility] Comment on above: Performed By: #### 7 600, 79005 #### [facility] of [place] [address] Faith Doctor: Austin Tobin MD AST [Catalytic activity/Vol] 12 U/L Normal 10-35 [facility] Comment on above: Performed By: #### 7 600, 18446 #### [facility] of [place] [address] Faith Doctor: Austin Tobin MD Bilirubin [Mass/Vol] 0.3 mg/dL Normal 0.2-1.2 [facility] Comment on above: Performed By: #### 7 600, 89354 #### [facility] of [place] [address] Faith Doctor: Austin Tobin MD BUN/CREATININE RATIO NOT APPLICABLE Normal 6-22 [facility] Comment on above: Performed By: #### 7 600, 58804 #### [facility] of [place] [address] Faith Doctor: Austin Tobin MD Calcium [Mass/Vol] 10.2 mg/dL Normal 8.6-10.4 [facility] Comment on above: Performed By: #### 7 600, 51228 #### [facility] of [place] [address] Faith Doctor: Austin Tobin MD Chloride [Moles/Vol] 99 mmol/L Normal 98-110 [facility] Comment on above: Performed By: #### 7 600, 83960 #### [facility] of [place] [address] Faith Doctor: Austin Tobin MD CO2 [Moles/Vol] 29 mmol/L Normal 20-32 [facility] Comment on above: Performed By: #### 7 600, 17920 #### [facility] of [place] [address] Faith Doctor: Austin Tobin MD Creatinine [Mass/Vol] 0.71 mg/dL Normal 0.60-0.93 [facility] Comment on above: Result Comment: For patients >49 years of age, the reference limit for Creatinine is approximately 13% higher for people identified as -[place]. Performed By: #### 7 600, 67293 #### [facility] [place] [address] Faith Doctor: Austin Tobin MD eGFR NON-AFR. CROATIAN 84 mL/min/1.73m2 Normal > OR = 60 [facility] Comment on above: Performed By: #### 7 600, 70675 #### [facility] [place] [address] Faith Doctor: Austin Tobin MD GFR/1.73 sq M.predicted among blacks MDRD (S/P/Bld) [Vol rate/Area] 97 mL/min/{1.73_m2} Normal > OR = 60 [facility] Comment on above: Performed By: #### 7 600, 83066 #### [facility] of [place] [address] Faith Doctor: Austin Tobin MD Globulin (S) [Mass/Vol] 2.6 g/dL Normal 1.9-3.7 [facility] Comment on above: Performed By: #### 7 600, 58094 #### [facility] [place] [address] Faith Doctor: Austin Tobin MD Glucose [Mass/Vol] 86 mg/dL Normal 65-99 [facility] Comment on above: Result Comment: Fasting reference interval Performed By: #### 7 600, 24414 #### [facility] [place] [address] Faith Doctor: Austin Tobin MD Potassium [Moles/Vol] 4.4 mmol/L Normal 3.5-5.3 [facility] Comment on above: Performed By: #### 7 600, 55778 #### [facility] [place] [address] Faith Doctor: Austin Tobin MD Protein [Mass/Vol] 7.3 g/dL Normal 6.1-8.1 [facility] Comment on above: Performed By: #### 7 600, 99702 #### [facility] of [place] [address] Faith Doctor: Austin Tobin MD Sodium [Moles/Vol] 135 mmol/L Normal 135-146 [facility] Comment on above: Performed By: #### 7 600, 42580 #### [facility] of [address], [address] [place] [address] Faith Doctor: Austin Tobin MD Urea nitrogen [Mass/Vol] 10 mg/dL Normal 7-25 [facility] Comment on above: Performed By: #### 7 600, 23522 #### [facility] of [place] [address] Faith Doctor: Austin Tobin MD LIPID PANEL, [facility] 05-05 Cholesterol [Mass/Vol] 214 mg/dL High <200 [facility] Comment on above: Performed By: #### 7 600, 10043 #### [facility] of [place] [address] Faith Doctor: Austin Tobin MD Cholesterol in HDL [Mass/Vol] 85 mg/dL Normal > OR = 50 [facility] Comment on above: Performed By: #### 7 600, 05964 #### [facility] [place] [address] Faith Doctor: Austin Tobin MD Cholesterol in LDL [Mass/Vol] 108 mg/dL High [facility] Comment on above: Result Comment: Refe rence range: <100 Desirable range <100 mg/dL for primary prevention; <70 mg/dL for patients with CHD or diabetic patients with > or = 2 CHD risk factors. LDL-C is now calculated using the Nikki calculation, which is a validated novel method providing better accuracy than the Friedewald equation in the estimation of LDL-C. Jordan HOU et al. JAUN. 2013;310(19): 9997-5827 (http://education.TheMobileGamer (TMG).Invoice2go/faq/USZ482) Performed By: #### 7 600, 47467 #### [facility] [place] [address] Faith Doctor: Austin Tobin MD Cholesterol.total/C holesterol in HDL [Mass ratio] 2.5 {ratio} Normal <5.0 [facility] Comment on above: Performed By: #### 7 600, 52013 #### [facility] [place] [address] Faith Doctor: Austin Tobin MD NON HDL CHOLESTEROL 129 mg/dL (calc) Normal <130 [facility] Comment on above: Result Comment: For patients with diabetes plus 1 major ASCVD risk factor, treating to a non-HDL-C goal of <100 mg/dL (LDL-C of <70 mg/dL) is considered a therapeutic option. Performed By: #### 7 600, 34441 #### [facility] [place] [address] Faith Doctor: Austin Tobin MD Triglyceride [Mass/Vol] 113 mg/dL Normal <150 [facility] Comment on above: Performed By: #### 7 600, 53876 #### [facility] [place] [address] Faith Doctor: Austin Tobin MD COMPREHENSIVE METABOLIC PANE [facility] 05-04-2021 Albumin [Mass/Vol] 4.3 g/dL Normal 3.6-5.1 [facility] Comment on above: Performed By: #### 7 600, 73556 #### [facility] [place] [address] Faith Doctor: Austin Tobin MD Albumin/Globulin [Mass ratio] 1.8 {ratio} Normal 1.0-2.5 [facility] Comment on above: Performed By: #### 7 600, 36386 #### [facility] [place] [address] Faith Doctor: Austin Tobin MD ALP [Catalytic activity/Vol] 82 U/L Normal 37-153 [facility] Comment on above: Performed By: #### 7 600, 56319 #### [facility] of [place] [address] Faith Doctor: Austin Tobin MD ALT [Catalytic activity/Vol] 11 U/L Normal 6-29 [facility] Comment on above: Performed By: #### 7 600, 92917 #### [facility] of [address], [address] [place] [address] Faith Doctor: Austin Tobin MD AST [Catalytic activity/Vol] 12 U/L Normal 10-35 [facility] Comment on above: Performed By: #### 7 600, 72353 #### [facility] of [place] [address] Faith Doctor: Austin Tobin MD Bilirubin [Mass/Vol] 0.4 mg/dL Normal 0.2-1.2 [facility] Comment on above: Performed By: #### 7 600, 68545 #### [facility] [place] [address] Faith Doctor: Austin Tobin MD BUN/CREATININE RATIO NOT APPLICABLE Normal 6-22 [facility] Comment on above: Performed By: #### 7 600, 95531 #### [facility] of [place] [address] Faith Doctor: Austin Tobin MD Calcium [Mass/Vol] 9.4 mg/dL Normal 8.6-10.4 [facility] Comment on above: Performed By: #### 7 600, 05483 #### [facility] of [address], [address] [place] [address] Faith Doctor: Austin Tobin MD Chloride [Moles/Vol] 98 mmol/L Normal 98-110 [facility] Comment on above: Performed By: #### 7 600, 57344 #### [facility] [place] [address] Faith Doctor: Austin Tobin MD CO2 [Moles/Vol] 28 mmol/L Normal 20-32 [facility] Comment on above: Performed By: #### 7 600, 04101 #### [facility] [address], [address] [place] [address] Faith Doctor: Austin Tobin MD Creatinine [Mass/Vol] 0.73 mg/dL Normal 0.60-0.93 [facility] Comment on above: Result Comment: For patients >49 years of age, the reference limit for Creatinine is approximately 13% higher for people identified as -[place]. Performed By: #### 7 600, 41789 #### [facility] [address], [address] [place] [address] Faith Doctor: Austin Tobin MD eGFR NON-AFR. CROATIAN 82 mL/min/1.73m2 Normal > OR = 60 [facility] Comment on above: Performed By: #### 7 600, 93458 #### [facility] [address], [address] [place] [address] Faith Doctor: Austin Tobin MD GFR/1.73 sq M.predicted among blacks MDRD (S/P/Bld) [Vol rate/Area] 95 mL/min/{1.73_m2} Normal > OR = 60 [facility] Comment on above: Performed By: #### 7 600, 54122 #### [facility] [address], [address] [place] [address] Faith Doctor: Austin Tobin MD Globulin (S) [Mass/Vol] 2.4 g/dL Normal 1.9-3.7 [facility] Comment on above: Performed By: #### 7 600, 07334 #### [facility] [address], [address] [place] [address] Faith Doctor: Austin oTbin MD Glucose [Mass/Vol] 102 mg/dL Normal 65-139 [facility] Comment on above: Result Comment: Non-fasting reference interval For someone without known diabetes, a glucose value between 100 and 125 mg/dL is consistent with prediabetes and should be confirmed with a follow-up test. Performed By: #### 7 600, 65059 #### [facility] of [address], [address] [place] [address] Faith Doctor: Austin Tobin MD Potassium [Moles/Vol] 4.3 mmol/L Normal 3.5-5.3 [facility] Comment on above: Performed By: #### 7 600, 41650 #### [facility] of [address], [address] [place] [address] Faith Doctor: Austin Tobin MD Protein [Mass/Vol] 6.7 g/dL Normal 6.1-8.1 [facility] Comment on above: Performed By: #### 7 600, 45134 #### [facility] of [address], [address] [place] [address] Faith Doctor: Austin Tobin MD Sodium [Moles/Vol] 132 mmol/L Low 135-146 [facility] Comment on above: Performed By: #### 7 600, 55371 #### [facility] of [address], [address] [place] [address] Faith Doctor: Austin Tobin MD Urea nitrogen [Mass/Vol] 12 mg/dL Normal 7-25 [facility] Comment on above: Performed By: #### 7 600, 72595 #### [facility] of [place] [address] Faith Doctor: Austin Tobin MD LIPID PANEL, [facility] 03-0 Cholesterol [Mass/Vol] 168 mg/dL Normal <200 [facility] Comment on above: Order Comment: FASTI NG:NO FASTING: NO Performed By: #### 7 600, [id number] #### [facility] of [address], [address] [place] [address] Faith Doctor: Austin Tobin MD Cholesterol in HDL [Mass/Vol] 79 mg/dL Normal > OR = 50 [facility] Comment on above: Order Comment: FASTI NG:NO FASTING: NO Performed By: #### 7 600, [id number] #### [facility] of [address], [address] [place] [address] Faith Doctor: Austin Tobin MD Cholesterol in LDL [Mass/Vol] 73 mg/dL Normal [facility] Comment on above: Order Comment: FASTI NG:NO FASTING: NO Result Comment: Refe rence range: <100 Desirable range <100 mg/dL for primary prevention; <70 mg/dL for patients with CHD or diabetic patients with > or = 2 CHD risk factors. LDL-C is now calculated using the Nikki calculation, which is a validated novel method providing better accuracy than the Friedewald equation in the estimation of LDL-C. Jordan SS et al. JAUN. 2013;310(19): 9671-7764 (http://education.Apartment Adda/faq/HSS558) Performed By: #### 7 600, 22238 #### [facility] [address], [address] [place] [address] Faith Doctor: Austin Tobin MD Cholesterol.total/C holesterol in HDL [Mass ratio] 2.1 {ratio} Normal <5.0 [facility] Comment on above: Order Comment: FASTI NG:NO FASTING: NO Performed By: #### 7 600, 46323 #### [facility] [address], [address] [place] [address] Faith Doctor: Austin Tobin MD NON HDL CHOLESTEROL 89 mg/dL (calc) Normal <130 [facility] Comment on above: Order Comment: FASTI NG:NO FASTING: NO Result Comment: For patients with diabetes plus 1 major ASCVD risk factor, treating to a non-HDL-C goal of <100 mg/dL (LDL-C of <70 mg/dL) is considered a therapeutic option. Performed By: #### 7 600, 60092 #### [facility] [address], [address] [place] [address] Faith Doctor: Austin Tobin MD Triglyceride [Mass/Vol] 79 mg/dL Normal <150 [facility] Comment on above: Order Comment: FASTI NG:NO FASTING: NO Performed By: #### 7 600, 77987 #### [facility] [address], [address] [place] [address] Faith Doctor: Austin Tobin MD Vital Signs Date Time Vital Sign Value Performing Clinician Facility 03-28-2023 11:20-0500 Body height 160.02 cm Aziz Bakhous Other [facility] Other 03-28-2023 11:20-0500 Body mass index (BMI) [Ratio] 24.83 kg/m2 Aziz Bakhous Other [facility] Other 03-28-2023 11:20-0500 Body temperature 96.9 [degF] Aziz Bakhous Other [facility] Other 03-28-2023 11:20-0500 Body weight 63.59 kg Aziz Bakhous Other [facility] Other 03-28-2023 11:20-0500 Diastolic blood pressure 70 mm[Hg] Aziz Bakhous Other [facility] Other 03-28-2023 11:20-0500 Systolic blood pressure 138 mm[Hg] Aziz Bakhous Other [facility] Other 10-11-2022 14:20-0400 Body height 160.02 cm Aziz Bakhous Other [facility] Other 10-11-2022 14:20-0400 Body mass index (BMI) [Ratio] 24.8 kg/m2 Aziz Bakhous Other [facility] Other 10-11-2022 14:20-0400 Body temperature 96.4 [degF] Aziz Bakhous Other [facility] Other 10-11-2022 14:20-0400 Body weight 63.5 kg Aziz Bakhous Other [facility] Other 10-11-2022 14:20-0400 Diastolic blood pressure 60 mm[Hg] Aziz Bakhous Other [facility] Other 10-11-2022 14:20-0400 Respiratory rate 18 /min Azlokesh Fays Other [facility] Other 10-11-2022 14:20-0400 Systolic blood pressure 130 mm[Hg] Azlokesh Fays Other [facility] Other 06-07-2022 10:20-0400 Body height 160.02 cm Bri Fays Other [facility] Other 06-07-2022 10:20-0400 Body mass index (BMI) [Ratio] 24.55 kg/m2 Bri Fays Other [facility] Other 06-07-2022 10:20-0400 Body temperature 97.2 [degF] Bri Fays Other [facility] Other 06-07-2022 10:20-0400 Body weight 62.87 kg Bri Fays Other [facility] Other 06-07-2022 10:20-0400 Diastolic blood pressure 72 mm[Hg] Aziz Bakhous Other [facility] Other 06-07-2022 10:20-0400 Respiratory rate 18 /min Bri Johous Other [facility] Other 06-07-2022 10:20-0400 SaO2% (BldA) [Mass fraction] 97 % Aziz Bakhous Other [facility] Other 06-07-2022 10:20-0400 Systolic blood pressure 130 mm[Hg] Aziz Bakhous Other [facility] Other 04-26-2022 09:40-0500 Body height Aziz Bakhous Other [facility] Other 04-26-2022 09:40-0500 Body mass index (BMI) [Ratio] 24.97 kg/m2 Aziz Bakhous Other [facility] Other 04-26-2022 09:40-0500 Body weight 63.96 kg Aziz Bakhous Other [facility] Other 04-26-2022 09:40-0500 Diastolic blood pressure 84 mm[Hg] Aziz Bakhous Other [facility] Other 04-26-2022 09:40-0500 SaO2% (BldA) [Mass fraction] 98 % Aziz Bakhous Other [facility] Other 04-26-2022 09:40-0500 Systolic blood pressure 150 mm[Hg] Aziz Bakhous Other [facility] Other Encounters Encounter Date Encounter Type Care Provider Facility Start: 03-28-2023 End: 03-28-2023 ambulatory Aziz Bakhous Other [facility] Other Start: 03-28-2023 Office outpatient vi sit 25 minutes Bri Fays [facility] Start: 03-20-2023 Refill Carson G Furlo ng DO Work Phone: [facility] Start: 03-10-2023 End: 03-10-2023 ambulatory AG HERNÁNDEZ Not Available Start: 03-07-2023 ambulatory GOOD DAN [facility] Start: 03-03-2023 Orders Only Good Dan HEAT TREATER APPRENTICE-CLOCK MAKER Work Phone: [facility] Start: 03-02-2023 Refill Farnaz Bennett [facility] Comment on above: 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 Start: 02-20-2023 End: 03-06-2023 ambulatory GOOD DAN [facility] Start: 10-11-2022 End: 10-11-2022 ambulatory Aziz Bakhous Other [facility] Other Start: 10-11-2022 Office outpatient vi sit 25 minutes Aziz Bakhous [facility] Start: 06-07-2022 End: 06-07-2022 ambulatory Aziz Bakhous Other [facility] Other Start: 06-07-2022 Patient encounter procedure Aziz Bakhous [facility] Start: 06-01-2022 End: 06-02-2022 ambulatory AZIZ BAKHOUS Facility:[facility] Start: 05-03-2022 End: 05-04-2022 ambulatory AZIZ BAKHOUS Facility:[facility] Start: 04-26-2022 End: 04-26-2022 ambulatory Aziz Bakhous Other [facility] Other Start: 04-26-2022 Office outpatient ne w 30 minutes Aziz Bakhous [facility] Start: 03-25-2022 End: 03-26-[address] CARSON SULLIVAN Facility:[facility] Start: 11-12-2021 End: 11-13-[address] CARSON SULLIVAN Facility:[facility] Start: 11-04-2021 End: 11-04-2021 ambulatory SABRINA GASTELUM Facility: Start: 10-07-2021 End: 10-07-2021 ambulatory [facility] Facility: Procedures Date Procedure Procedure Detail Performing Clinician Start: 02-09-2023 Adult depression screening assessment Good Dan CHRISTOS-CLOCK MAKER Work Phone: Plan of Treatment Date Care Activity Detail Author Start: 04-10-2024 DTaP,Tdap and Td Vac cines (2 - Td or Tdap) DTaP,Tdap and Td Vaccines (2 - Td or Tdap) [facility] Start: 02-10-2024 Adult BMI Screening Adult BMI Screen ing [facility] Start: 02-10-2024 Depression Screening Depression Scre ening [facility] Start: 02-10-2024 Fall Risk Screening Fall Risk Screen ing [facility] Start: 02-10-2024 Tobacco Screening Tobacco Screening [facility] Start: 08-17-2023 End: 08-17-2023 Patient encounter procedure 08/17/2023 11:40 AM EDT Office Visit [facility] [address] [place] [id number] [facility] Start: 08-03-2023 Medicare Annual Well ness Visit Medicare Annual Wellness Visit [facility] Start: 07-19-2023 Administration of varicella zoster vaccine Zoster (Shingles) Vaccine (1 of 2) [facility] Comment on above: Postponed from 05/10 (Patient Refused) Start: 03-07-2023 End: 03-07-2023 Patient encounter procedure 03/07/2023 2:00 PM EST Appointment [facility] [address] [place] [id number] [facility] Start: 02-03-2023 Screening for malign ant neoplasm of colon Colon Cancer Screening 3 Year Cologuard [facility] Start: 05-10-1963 Adult BMI Follow Up Plan Adult BMI Follow Up Plan [facility] Start: 1945 Tobacco Counseling Tobacco Counselin g [facility] Immunizations Immunization Date Immunization Notes Care Provider Fa ashley 02-09-2023 Influenza Vaccine, Quadrivalent, Adjuvanted [place] HEAT TREATER APPRENTICE-CLOCK MAKER Work Phone: [facility] 12-04-2020 influenza, high dose seasonal, preservative-free [place] HEAT TREATER APPRENTICE-CLOCK MAKER Work Phone: [facility] 11-25-2019 influenza, injectabl e, quadrivalent, preservative free [place] HEAT TREATER APPRENTICE-CLOCK MAKER Work Phone: [facility] 05-18-2019 Seasonal trivalent influenza vaccine, adjuvanted, preservative free [place] HEAT TREATER APPRENTICE-CLOCK MAKER Work Phone: [facility] 11-19-2018 Seasonal trivalent influenza vaccine, adjuvanted, preservative free [place] HEAT TREATER APPRENTICE-CLOCK MAKER Work Phone: [facility] 11-20-2017 influenza, injectabl e, quadrivalent, contains preservative [place] HEAT TREATER APPRENTICE-CLOCK MAKER Work Phone: [facility] 11-20-2017 Seasonal trivalent influenza vaccine, adjuvanted, preservative free [place] HEAT TREATER APPRENTICE-CLOCK MAKER Work Phone: [facility] 11-25-2016 influenza, injectabl e, quadrivalent, preservative free [place] HEAT TREATER APPRENTICE-CLOCK MAKER Work Phone: [facility] 11-25-2016 influenza, seasonal, injectable [place] HEAT TREATER APPRENTICE-CLOCK MAKER Work Phone: [facility] 03-14-2016 pneumococcal polysaccharide vaccine, 23 valent [place] HEAT TREATER APPRENTICE-CLOCK MAKER Work Phone: [facility] 12-10-2015 influenza, high dose seasonal, preservative-free [place] HEAT TREATER APPRENTICE-CLOCK MAKER Work Phone: [facility] 03-10-2015 pneumococcal conjuga te vaccine, 13 valent [place] HEAT TREATER APPRENTICE-CLOCK MAKER Work Phone: [facility] 12-08-2014 influenza, seasonal, injectable, preservative free Good Dan [facility] Work Phone: [facility] 04-10-2014 tetanus toxoid, redu savanna diphtheria toxoid, and acellular pertussis vaccine, adsorbed Good Dan [facility] Work Phone: [facility] 12-23-2013 influenza virus vacc ine, unspecified formulation Good Dan [facility] Work Phone: [facility] 01-28-2013 pneumococcal conjuga te vaccine, 13 valent [facility] Work Phone: [facility] Payers Date Payer Category Payer Medicare HU[employer] MEDICARE [place] [id number] 2013-Present [id number] [place] [id number] 1957 Medicare [id number] 1945 Unknown [id number] 1945 Unknown [id number] 1945 Unknown [id number] 1947 Unknown [id number] 1947 Unknown [id number] 1945 Unknown [id number] 1945 Unknown [id number] 9 1945 Unknown [id number] 6 1945 Unknown [id number] 6 Social History Date Type Detail Facility Start: 07-18-2022 End: 08-02-2022 Sex Assigned At [facility] Start: 11-16-2021 Tobacco smoking stat [facility] Smokes tobacco daily [facility] History of tobacco use Cigarette Smoker [facility] Start: 11-16-2021 End: 07-18-2022 Cigarettes smoked current (pack per day) - Reported 1 [facility] Start: 11-16-2021 Tobacco use and exposure Smoke less tobacco non-user [facility] Start: 02-09-2023 Alcohol intake Lifetime non-d nathaly (finding) [facility] Do you belong to any clubs or organizations such as bahai groups, unions, fraCortexa or athletic groups, or school groups? No [facility] Are you now , , , , never or living with a partner? [facility] How often to you hav e a drink containing alcohol? Monthly or less [facility] How many standard dr inks containing alcohol do you have on a typical day? 1 or [address] [facility] How often do you hav e 6 or more drinks on 1 occasion? Never [facility] How hard is it for y ou to pay for the very basics like food, housing, medical care, and heating Not hard at all [facility] Do you feel stress - tense, restless, nervous, or anxious, or unable to sleep at night because your mind is troubled all the time - these days [OSQ] Only a little [facility] Start: 1945 Sex Assigned At Not on file [facility] Clinical Notes 10-07-2021 to 03-28-2023 Note Date & Type Note Facility 03-28-2023 Evaluation note Encounter Date Diagnosis Assessment Notes Mar, Chronic kidney disease, stage 3a (ICD-10 - N18.31) Likely from hypertensive nephropathy and history of NSAID use. Kidney function improved with stopping NSAIDs. Creatinine 1.14 mg deciliter GFR 47 UA is benign. Blood pressure and volume status well controlled Please avoid NSAIDs completely. I will follow-up with the patient in 6 months. Mar, Hypertensive nephropathy (ICD-10 - I12.9) Blood pressure seems reasonable and close to target. Okay to continue same blood pressure medications for now. I asked the patient to monitor her blood pressure at home and to follow low-salt diet Mar, Anemia, unspecified type (ICD-10 - D64.9) Hemoglobin 12.3 g deciliter. I asked the patient to continue OTC iron supplement Mar, Vitamin D deficiency (ICD-10 - E55.9) 25-hydroxy vitamin D is WNL I asked the patient to continue [id number]-[id number] vitamin D supplement 1999Mar, Nephrolithiasis (ICD-10 - N20.0) Renal ultrasound shows nonobstructive bilateral renal calculi which are small in size. I asked the patient to continue ample water intake [facility] Other [id number] History of Present illness Narrative* NIRANJAN Rodriguez - 03/03/2023 1:29 PM EST The OARRS/MAPPS database was reviewed today and found to be appropriate. No indication of medication diversion, or non compliance. Pt is due for refill 03/11/22, last filled 02/08/[address] Sullivan who is out of town. NIRANJAN Rodriguez 03/03/23 1332 [facility] Miscellaneous Notes* Telephone Encounter - Farnaz Bennett CMA - 03/02/2023 2:51 PM EST Pt called and would like a refill on her NORCO. Pharmacy is listed and correct. * Telephone Encounter - NIRANJAN Rodriguez - 03/02/2023 2:51 PM EST Pt is due for refill 03/11 - I will send but pharmacy will not fill until this time [facility] Telephone encounter Note* Telephone Encounter - Farnaz Bennett CMA - 03/02/2023 2:51 PM EST Pt called and would like a refill on her [facility]. [facility] [id number] Telephone encounter Note* Telephone Encounter - NIRANJAN Rodriguez - 03/02/2023 2:51 PM EST Pt is due for refill 03/11 - I will send but pharmacy will not fill until this time [facility] [id number] Evaluation note* Encounter Date Diagnosis Assessment Notes Treatment Notes Treatment Clinical Notes Oct, Chronic kidney disease, stage 3a (ICD-10 - N18.31) Likely from hypertensive nephropathy and history of NSAID use. Kidney function improved with stopping NSAIDs. Creatinine 1.1 mg deciliter which is likely her baseline. GFR 47 UA is benign. Blood pressure and volume status well controlled Please avoid NSAIDs completely. I will follow-up with the patient in 6 months. Oct, Hypertensive nephropathy (ICD-10 - I12.9) Blood pressure seems reasonable and close to target. Okay to continue same blood pressure medications for now. I asked the patient to monitor her blood pressure at home and to follow low-salt diet Oct, Anemia, unspecified type (ICD-10 - D64.9) Hemoglobin 11.2 g deciliter. has iron def. I asked the patient to take OTC iron supplement Oct, Vitamin D deficiency (ICD-10 - E55.9) 25-hydroxy vitamin D is WNL I asked the patient to continue [id number] vitamin D supplement 1999Oct, Nephrolithiasis (ICD-10 - N20.0) Renal ultrasound shows nonobstructive bilateral renal calculi which are small in size. I asked the patient to continue ample water intake [facility] Other 04-04-2023 Evaluation note* Encounter Date Diagnosis Assessment Notes Treatment Notes Treatment Clinical Notes Jun, Chronic kidney disease, stage IV (severe) (ICD-10 - N18.4) Likely from hypertensive nephropathy and history of NSAID use. Kidney function improved with stopping NSAIDs. Creatinine 1.3 mg deciliter which is likely her baseline. UA is benign. Blood pressure and volume status well controlled Please avoid NSAIDs completely. I will follow-up with the patient in 4 months. Jun, Hypertensive nephropathy (ICD-10 - I12.9) Blood pressure seems reasonable and close to target. Okay to continue same blood pressure medications for now. I asked the patient to monitor her blood pressure at home and to follow low-salt diet Jun, Anemia, unspecified type (ICD-10 - D64.9) Hemoglobin 10.8 g deciliter. I will check iron studies along with vitamin B12 and folate next visit Jun, Vitamin D deficiency (ICD-10 - E55.9) 25-hydroxy vitamin D is low at 19. I patient with vjoz-hab-livnewk vitamin D supplement 1999Jun, Nephrolithiasis (ICD-10 - N20.0) Renal ultrasound shows nonobstructive bilateral renal calculi which are small in size. I asked the patient to continue ample water intake [facility] Other 02-21-2023 Evaluation note* Encounter Date Diagnosis Assessment Notes Treatment Notes Treatment Clinical Notes Apr, Chronic kidney disease, stage IV (severe) (ICD-10 - N18.4) Likely from hypertensive nephropathy and history of NSAID use. Serum creatinine last month 2.4 and GFR 20. I asked the patient patient to stop NSAIDs completely and to hydrate herself well. I am okay to continue lisinopril for now but we might have to stop it next visit if kidney function worse Blood pressure and volume status are okay. No need for NSAIDs. I will do renal ultrasound along with bone mineral disease blood work. I will follow-up with the patient 2 months Apr, Hypertensive nephropathy (ICD-10 - I12.9) Blood pressure seems reasonable and close to target. Okay to continue same blood pressure medications for now. I asked the patient to monitor her blood pressure at home and to follow low-salt diet [facility] Other 09-01-2022 NoteOPERATIVE NOTE OPERATION DATE: 11/04/2021 SURGEON: Sabrina Manuel M.D. PREOPERATIVE DIAGNOSIS: Nuclear sclerotic cataract right eye. POSTOPERATIVE DIAGNOSIS: Nuclear sclerotic cataract right eye. PROCEDURE NAME: Cataract extraction with intraocular lens placement for the right eye. ANESTHESIA: Topical. ESTIMATED BLOOD LOSS: Zero. COMPLICATIONS: None. PROCEDURE: The patient was brought to the Operating Room in supine position. After proper identification, the right eye was prepped and draped in a sterile ophthalmic fashion. A paracentesis created at the 11 o'clock position. Approximately 1 mL of unpreserved Xylocaine was injected into the anterior chamber followed by Amvisc Plus. Using a 2.6 mm Keratome blade, a clear corneal incision was created at the 9 o'clock limbus. A cystotome was then used to begin a curvilinear capsulorrhexis that was continued for 360 degrees with the Utrata forceps. BSS on a 26 gauge cannula was injected beneath the anterior capsule to hydrodissect as well as hydrodelineate the lens. After ensuring mobility, phacoemulsification was performed in a exvmdvx-iyw-ghssej-type fashion. After all nuclear material had been removed from the eye, IA was introduced and all residual cortical material was cleaned up. Additional Amvisc Plus was injected into the posterior bag and a lens model MX60, 25.5 diopters was injected and dialed into position. After ensuring centration, IA was reintroduced into the anterior chamber and all residual Amvisc Plus removed from the eye. BSS on a 30 gauge cannula was injected into the stroma of both the clear corneal incision as well as paracentesis to hydrate the wounds. Additional BSS was injected into the anterior chamber to pressurize the eye at approximately 20 to 22 mmHg by finger tension. 0.1 mL of antibiotic was injected into the anterior chamber. Weck-Hilda sponges were used to check the wounds to be watertight. One drop of apraclonidine and one drop of prednisolone acetate were placed into the eye and a shield was placed over top. The patient was sent to the postoperative area in satisfactory condition to follow up the following day for postoperative care.[facility] [id number] NoteHISTORY AND PHYSICAL EXAMINATION Date:11/03/2021 HISTORY: Patient is a 76-year-old white female with complaints of declining vision out of her right eye. The approximate range of time that this progressed was over the last six months. She states that she is bothered by glare and halos at night time. She also states having difficulty seeing television and reading. PAST OCULAR HISTORY / PAST MEDICAL HISTORY / SOCIAL HISTORY / MEDICATIONS / ALLERGIES TO MEDICATIONS / REVIEW OF SYSTEMS and PHYSICAL EXAMINATION: Unchanged from previously dictated. ASSESSMENT AND PLAN: 1. Visually significant cataract, right eye. After the risks, benefits, alternatives as well as expectations were delivered to the patient, she elected to go forward with cataract removal. She understands those risks to include but not limited to infection, bleeding, loss of vision or loss of the eye itself. Secondly, she understands that postoperatively she is likely to require spectacle correction for her best visual acuity. Finally, a complete ophthalmic exam was performed and there was not determined to be any other source of vision decline other than that of cataract. 2. [id number] patient was briefed in the office and consented for elective cataract surgery in the setting of the pandemic of coronavirus. She understands that she is at a heightened risk of going into a hospital setting, however, feels that her activities of daily living are severely enough depleted by her cataracts that she is willing to incur this risk and go forward with this elective procedure.[facility] [id number] NoteOPERATIVE NOTE OPERATION DATE: 10/07/2021 SURGEON: Sabrina Manuel D.O. PREOPERATIVE DIAGNOSIS: Nuclear sclerotic cataract left eye POSTOPERATIVE DIAGNOSIS: Nuclear sclerotic cataract left eye. PROCEDURE NAME: Cataract extraction with intraocular lens placement of the left eye. ANESTHESIA: Topical ESTIMATED BLOOD LOSS: Zero. COMPLICATIONS: None. PROCEDURE: The patient was brought to the Operating Room in supine position. After proper identification, the left eye was prepped and draped in a sterile ophthalmic fashion. A paracentesis was created at the 5 o'clock position. Approximately 1 mL of unpreserved Xylocaine was injected into the anterior chamber followed by Amvisc Plus. Using a 2.6 mm Keratome blade, a clear corneal incision was created at the 3 o'clock limbus. A cystotome was then used to begin a curvilinear capsulorrhexis that was continued for 360 degrees with the Utrata forceps. BSS on a 26 gauge cannula was injected beneath the anterior capsule to hydrodissect as well as hydrodelineate the lens. After ensuring mobility, phacoemulsification was performed in a xlfwfsd-wsh-lpiyjr-type fashion. After all nuclear material had been removed from the eye, IA was introduced and all residual cortical material was cleaned up. Additional Amvisc Plus was injected into the posterior bag and a lens model MX60, 25.5 diopters was injected and dialed into position. After ensuring centration, IA was introduced into the anterior chamber and all residual Amvisc Plus was removed from the eye. BSS on a 30 gauge cannula was then injected into the stroma of both the clear corneal incision as well as paracentesis to hydrate the wounds. Additional BSS was injected into the anterior chamber to pressurize the eye at approximately 20 to 22 mmHg by finger tension. 0.1 mL of antibiotic was injected into the anterior chamber, maintaining the pressure as above. Weck-Hilda sponges were used to check the wounds to be watertight. One drop of apraclonidine and one drop of prednisolone acetate were placed into the eye and a shield was placed over top. The patient was sent to the postoperative area in satisfactory condition to follow up the following day for postoperative care.[facility] 10-07-2021 NoteHISTORY AND PHYSICAL EXAMINATION Date:10/06/2021 HISTORY: The patient is a 76-year-old white female who complains of declining vision out of her left eye. This came on gradually over the last six months, progressively worsening over that timeframe. She states having difficulty reading and is bothered by night time driving causing glare and halos from headlights or street lamps. PAST OCULAR HISTORY 1. Cataracts. 2. History of glaucoma suspect. PAST MEDICAL HISTORY 1. Hysterectomy. 2. Carpal tunnel surgery. 3. Back surgery. 4. Hypertension. 5. Hypothyroidism. 6. Hypercholesterolemia. 7. GERD. 8. History of a breast biopsy. SOCIAL HISTORY: Denies alcohol or recreational drug abuse. She smokes tobacco daily. SYSTEMIC MEDICATIONS: Include Livalo, omeprazole, naproxen, lorazepam, levothyroxine, hydrocodone/acetaminophen p.r.n., hydrochlorothiazide and amlodipine. ALLERGIES TO MEDICATIONS: To sulfa. REVIEW OF SYSTEMS: No pertinent positives. PHYSICAL EXAMINATION: VITALS: Blood pressure measured at 166/96 with a respiratory rate of 12 and pulse of 93. GENERAL: She is awake, alert and oriented x3, well developed, well nourished, in no acute distress. HEART: Regular rate and rhythm. LUNGS: Clear bilaterally. ABDOMEN: Soft, non-tender, non-distended. EXTREMITIES: No pitting edema. OPHTHALMIC EXAM: Revealed a visual acuity of 20/30 -2 in the right that glared to 20/200 and 20/40 -2 in the left eye that glared to 20/200. Pupils motility, muscle balance and confrontational visual sanchez within normal limits bilaterally. Pressures are measured at 19 bilaterally. Slit lamp exam revealed blepharitis with a severe decrease in tear film bilaterally. Conjunctiva, cornea, anterior chamber and iris were within normal limits bilaterally. Lens status demonstrated 3+ nuclear sclerosis bilaterally. FUNDUS EXAM: Revealed good view with good dilation bilaterally. Optic discs, macula, vessels, periphery and vitreous were within normal limits bilaterally. ASSESSMENT/PLAN: 1. Visually significant cataract, left eye. After the risks, benefits, alternatives as well as expectations were delivered to the patient, she elected to go forward with cataract removal. She understands the risks include but not limited to infection, bleeding, loss of vision or loss of the eye itself. Secondly, she understands that postoperatively she is likely to require spectacle correction for her best visual acuity. Finally, a complete ophthalmic exam was performed and there was not determined to be any other source of vision decline other than that of cataract. 2. [id number] patient was briefed in the office and consented for elective cataract surgery in the setting of the pandemic of coronavirus. She understands that she is at a heightened risk of going into a hospital setting, however, feels that her activities of daily living are severely enough depleted by her cataracts that she is willing to incur this risk and go forward with this elective procedure.[facility] CenterEvaluation [facility]* Diagnosis Lumbosacral spondylosis without myelopathy documented [facility] this [facility] - [facility]* Type Description Date Medical History Appendicitis Medical History Arthritis Medical History High cholesterol (un ebony control with diet and Niacin) Medical History Basal cell cancer Medical History Fibromyalgia Medical History Migrane headaches Medical History Anxiety (under control) Surgical History 2 back surgeries Surgical History Tonsils Surgical History Appendix (several laprascopies) Surgical History Carpal tunnel- both hands Surgical History Breast biopsy (augmentation) Surgical History Hysterectomy Surgical History Posterior Lumbar Decompression- Dr. Shepherd 02/2018 Surgical History cataract surgery Hospitalization History See [employer] Other History general Narrative - Reported* Type Description Date Medical History Appendicitis Medical History Arthritis Medical History High cholesterol (un ebony control with diet and Niacin) Medical History Basal cell cancer Medical History Fibromyalgia Medical History Migrane headaches Medical History Anxiety (under control) Medical History 2 TORN ROTATOR CUFFS Surgical History 2 back surgeries Surgical History Tonsils Surgical History Appendix (several laprascopies) Surgical History Carpal tunnel- both hands Surgical History Breast biopsy (augmentation) Surgical History Hysterectomy Surgical History Posterior Lumbar Decompression- Dr. Shepherd 02/2018 Surgical History cataract surgery Surgical History SKIN CANCER BIOPSY ON NOSE Hospitalization History See [facility] Other InstructionsNot on filedocumented in this encounter [facility] filed[facility] in [facility]InstructionsNot on filedocumented in this encounter [facility] SystemInstructionsNot on filedocumented in this encounter [employer] Summary Purpose Family History No Family History Records FoundNo Family History Records FoundNo Family History Records FoundNo Family History Records Found Advance Directives No Advanced Directives Records FoundNo Advanced Directives Records FoundNo Advanced Directives Records FoundNo Advanced Directives Records Found Additional Source Comments INFORMATION SOURCE (unrecogn ized section and content) DATE CREATED AUTHOR 05/30/2021 [facility] DATE CREATED AUTHOR AUTHOR'S ORGANIZ ATION 06/10/2022 [facility] DATE CREATED AUTHOR AUTHOR'S ORGANIZ ATION 03/11/2023 [facility] EPIC DATE CREATED AUTHOR AUTHOR'S ORGANIZ ATION 03/13/2023 [facility] REASON FOR VISIT (unrecogniz ed section and content) RENAL 6 month Follow up Reason Comments Med Refill Care Teams (unrecognized sec tion and content) Wastewater Manager Relationship Specialty Start Date End Date Carson Sullivan DO [address] [place] [address] PCP - General Family Medicine 02/14/17 Wastewater Manager Relationship Specialty Start Date End Date Carson Sullivan DO [address] [place] [address] PCP - General Family Medicine 02/14/17 Wastewater Manager Relationship Specialty Start Date End Date Carson Sullivan DO [address] [place] [address] PCP - General Family Medicine 02/14/17 FOR RECORDS PERTAINING TO PATIENTS WHO ARE OR HAVE BEEN ENROLLED IN A CHEMICAL DEPENDENCY/SUBSTANCEABUSE PROGRAM, SOME INFORMATION MAY BE OMITTED. This clinical summary was aggregated from multiple sources. Caution should be exercised in using it in the provision of clinical care. This summary normalizes information from multiple sources, and as a consequence, information in this document may materially change the coding, format and clinical context of patient data. In addition, data may be omitted in some cases. CLINICAL DECISIONS SHOULD BE BASED ON THE PRIMARY CLINICAL RECORDS. [employer] provides no warranty or guarantee of the accuracy or completeness of information in this document.
== END 2023-03-31 10:42 | disposition home or self-care (01) ==
PROVIDERS: PCP Family Medicine; Visit Provider Nurse Practitioner Family
DX: M54.2 Cervicalgia (principal); G89.29 Other chronic pain; M47.812 Spondylosis without myelopathy or radiculopathy, cervical region
CPT/HCPCS: 72040

== ENCOUNTER 2023-04-10 14:56 | Outpatient (OUT) | payer MEDICARE, SELFPAY ==
--- NOTE | 2023-04-10 15:07 | XR_ITS ---
[address] [address] Patient Name: NORA COON MRN: [id number] date: 1945 Sex: F Assigned Patient Location: [facility] Current Patient Location: [facility] Accession/Order Number: [id number] Exam Date: 04/10/2023 15:18 Report Date: 04/10/2023 16:21 At the request of: [facility] Procedure: XR shoulder MARLENY min 2V EXAMINATION: XR shoulder MARLENY min 2V HISTORY: Chronic pain of both shoulders M25.511, G89.29, M25.512 COMPARISON: No relevant comparison available. FINDINGS: RIGHT FINDINGS: BONES: No acute fracture or dislocation. Severe degenerative changes of the glenohumeral joint with bony remodeling and marginal osteophyte formation SOFT TISSUES: Extensive calcifications in the joint space suggesting calcific tendinosis OTHER: Negative. LEFT FINDINGS: BONES: No acute fracture or dislocation. Severe degenerative changes with [id number] articulation bony remodeling and marginal osteophyte formation SOFT TISSUES: Negative. No visible soft tissue swelling. OTHER: Negative. XR/XR shoulder MARLENY min 2V IMPRESSION: RIGHT CONCLUSION: Severe osteoarthritis LEFT CONCLUSION: Severe osteoarthritis Electronically authenticated by: MICKIE PONCE Date: 04/10/2023 16:21
--- OUTSIDE RECORDS SUMMARY | 2023-04-10 15:22 | XMS_ITS | CCD ---
Author Name Unknown Address [address] [place] [address] Organization [facility] Care Team Providers Care Plastic Boat Patcher Name Role Phone Bri Davis Unavailable NEAL, DR CARSON Luciano Admitting Unavailable FURLONG, DR CARSON Luciano Attending Unavailable FURLONG, DR CARSON Luciano Consulting Unavailable FURLONG, DR CARSON Luciano Primary Care Unavailable BRI DAVIS Admitting Unavailable JOBY POLO Consulting Unavailable FURLONG, DR CARSON Luciano Primary Care Unavailable BAKDYLONSBRI Attending Unavailable BAKDYLONSBRI Consulting Unavailable BAKDYLONSBRI Consulting Unavailable MISC, DR BANKS Admitting Unavailable FURLONG, DR CARSON Luciano Primary Care Unavailable MISC, DR BANKS Attending Unavailable SABRINA MANUEL Attending Unavailable SABRINA MANUEL Admitting Unavailable SABRINA MANUEL Consulting Unavailable FURLONG, DR CARSON Luciano Primary Care Unavailable SABRINA MANUEL Admitting Unavailable SABRINA MANUEL Attending Unavailable FURLONG, DR CARSON Luciano Consulting Unavailable FURLONG, DR CARSON Luciano Primary Care Unavailable SABRINA MANUEL Consulting Unavailable FURLONG, DR CARSON Luciano Admitting Unavailable FURLONG, DR CARSON Luciano Attending Unavailable FURLONG, DR CARSON Luciano Consulting Unavailable FURLONG, DR CARSON Luciano Primary Care Unavailable Furlong Carson LEIVA Primary Care Provider GOOD DAN Attending Unavailable CARSON SULLIVAN Referring Unavailable CARSON SULLIVAN Primary Care Unavailable GOOD DAN Referring Unavailable JELANILOCARSON CORDERO Primary Care Unavailable Unavailable Primary Care Provider UnavailAG Francis Attending Unavailable AG HERNÁNDEZ Attending Unavailable GOOD DAN Referring Unavailable CARSON SULLIVAN Primary Care Unavailable GOOD DAN Referring Unavailable CARSON SULLIVAN Primary Care Unavailable Allergies Allergy Classification Reported Allergen(s) Allergy Type Date of Onset Reaction(s) Facility (12 sources) hydroCHLOROthiazide; Translations: [HYDROCHLOROTHIAZIDE] Drug Allergy Itching [facility] (1 source) Sulfonamides (Antibiotic) Drug allergy (disorder) [facility] (8 sources) HMG-CoA reductase inhibitor; Translations: [ELLRGRA-IOQ-TAZ REDUCTASE INHIBITORS] Propensity to adverse reactions to drug pain [facility] (8 sources) nickel; Translations: [NICKEL] Drug Allergy Rash [facility] (11 sources) Sulfonamides (Antibiotic); Translations: [SULFA (SULFONAMIDE ANTIBIOTICS)] Propensity to adverse reactions to drug Photosensitivity [facility] (3 sources) HMG-CoA reductase inhibitor Drug Allergy [facility] (3 sources) hydroCHLOROthiazide Drug Allergy Itching [facility] (3 sources) nickel sulfate Drug Allergy Rash [facility] Medications Current Medications Medication Drug Class(es) Dates Sig (Normalized) Sig (Original) acetaminophen 325 mg / HYDROcodone bitartrate 7.5 mg oral tablet (10 sources) Opioid Agonist Start: 04-08-2023 HYDROcodone-acetami nophen (NORCO) 7.5-325 mg per tablet Indications: Lumbosacral spondylosis without myelopathy Take 1 tablet by mouth every 6 (six) hours as needed for pain. Max Daily Amount: 4 tablets 120 tablet 0 04/08/2023 Active Start: 02-08-2023 End: 04-02-2023 HYDROcodone-acetaminophen (N ORCO) 7.5-325 mg per tablet Indications: Lumbosacral spondylosis without myelopathy Take 1 tablet by mouth every 6 (six) hours as needed for pain. Max Daily Amount: 4 tablets 120 tablet 0 03/03/2023 04/02/2023 Discontinued (Reorder) Vicodin 7.5 mg P RN Active acetaminophen 325 mg / oxyCODONE hydrochloride 5 mg oral tablet (3 sources) Opioid Agonist take 1 tablet by mouth every six hours oxyCODONE-Acetaminophen 5-325 MG 1 tablet as needed Orally every 6 hrs Active amLODIPine 10 mg oral tablet (12 sources) Dihydropyridine Calcium Channel Akhil Start : 12-21 take 1 tablet by mouth in the morning amLODIPine (Norvasc) 10 MG tablet Take 1 tablet by mouth in the morning. 0 12/21/2022 Active ascorbic acid 500 mg chewable tablet (10 sources) Vitamin C Bioflavonoid Pro ducts (Vitamin C) chewable tablet as directed Orally 0 Active ascorbic acid, v itamin C, (VITAMIN C) 1000 mg tablet as directed Orally 0 Active Vitamin C - as d irected Orally Active aspirin 81 mg delayed release oral tablet (12 sources) Platelet Aggregation Inhibitor, Nonsteroidal Anti-inflammatory Drug take 1 tablet by mouth once daily aspirin 81 MG EC tablet 1 tablet Orally Once a day for 30 day(s) 0 Active take 1 tablet by nabeel th every twenty-four hours Aspirin 81 MG 1 tablet Orally Once a day for 30 day(s) Active B Navycdb-Umdprf-FV (Super B-Complex) tablet (3 sources) B Complex-Biotin -FA (Super B-Complex) tablet as directed Orally 0 Active benzonatate 100 mg oral capsule (8 sources) Non-narcotic Antitussive Start: 023 take 1 capsule by mouth three times daily as needed for cough benzonatate (TESSALON PERLES) 100 mg capsule Take 1 capsule (100 mg total) by mouth 3 (three) times a day as needed for cough. 30 capsule 0 10/20/2022 Active take 1 capsule by mo [facility] three times daily as needed Benzonatate 200 MG 1 capsule Orally Thre e times a day as needed for 30 days Not-Taking Calcium 600 + D 600-200 MG-UNIT (4 sources) take 1 tablet by nabeel th once daily Calcium 600 + D 600-200 MG-UNIT 1 tablet with a meal Orally Once a day for 30 day(s) Active take 1 tablet by mouth once [place] y Calcium 600 + D 600-200 MG-UNIT 1 tablet with a meal Orally Once a day for 30 day(s) Not-Taking hloxsaz-swjxfumlh-ital 333-133-5 MG per tablet (3 sources) calcium-magnesiu m-zinc 333-133-5 MG per tablet every 8 (eight) hours 0 Active Centrum Silver - (1 source) Centrum Silver - as directed Orally Active cholecalciferol 0.05 mg oral capsule (2 sources) Vitamin D take 1 capsule by mouth every twenty-four hours Vitamin D3 50 MCG (2000 UT) 1 capsule Orally Once a day Active docosahexaenoic acid 120 mg / eicosapentaenoic acid 180 mg oral capsule (3 sources) omega-3 (fish oi l) 1000 MG capsule 1 capsule 1 (one) time each day at the same time 0 Active docusate sodium 100 mg oral tablet (4 sources) take 1 tablet by mouth every twenty-four hours Stool Softener 100 MG 1 tablet as needed Orally Once a day for 30 day(s) Active fluticasone propionate 0.05 mg/actuat metered dose nasal spray (8 sources) Corticosteroid Start : 10-19 take 1 spray(s) nasal route in the morning fluticasone (Flonase) 50 MCG/ACT nasal spray Administer 1 spray into affected nostril(s) in the morning. 0 10/19/2022 Active Start: 10-19-2022 take 1 spray(s) nasa l route in the morning fluticasone propionate (FLONASE) 50 mcg/actuation nasal spray Administer 1 spray into each nostril in the morning. 9.9 mL 1 10/19/2022 Active fsh/flx/prim/cur/bor/om3,6,9 5 (OMEGA 3-6-9 FATTY ACIDS ORAL) (5 sources) fsh/flx/prim/cur /bor/om3,6,9 5 (OMEGA 3-6-9 FATTY ACIDS ORAL) as directed Orally 0 Active Iron (1 source) take 1 tablet by mouth once daily Iron 28 MG 1 tablet Orally Once a day for 30 day(s) Active lactobacillus acidophilus [id number] unt oral capsule (5 sources) Lactobacillus ac idophilus (PROBIOTIC) 10 billion cell capsule 1 capsule See Admin Instructions. 0 Active levothyroxine sodium 0.112 m g oral tablet (12 sources) l-Thy roxin e Star t: 08-23 take 1 tablet by mouth in the morning levothyroxine (Synthroid, Levoxyl) 112 MCG tablet Take 1 tablet by mouth in the morning. 0 11/09/2022 Active take 1 tablet by nabeel once daily in the morning Levothyroxine Sodium 112 MCG 1 tablet on an empty stomach in the morning Orally Once a day for 30 day(s) Active lisinopril 40 mg oral tablet (12 sources) Angiotensin Converting Enzyme Inhibitor Start: 09-29-2022 take 1 tablet by mouth in the morning lisinopril 40 MG tablet Take 40 mg by mouth in the morning. 0 09/29/2022 Active loratadine 10 mg oral tablet (12 sources) End: 03-30-2023 loratadine (Claritin) 10 MG tablet 1 (one) time each day at the same time 0 Active take 1 tablet by mouth in the mo rning loratadine 10 mg capsule Take 1 tablet by mouth in the morning. 0 Active LORazepam 1 mg oral tablet (2 sources) Benzodiazepine take 1 tablet by nabeel th every twenty-four hours LORazepam 1 MG 1 tablet at bedtime as needed Orally Once a day Active lutein 10 mg oral tablet (9 sources) take 1 tablet by nabeel th every twenty-four hours lutein 10 mg tablet Take 1 tablet by mouth daily. 0 Active take 1 capsule by mo [facility] every twenty-four hours Lutein 6 MG 1 capsule with a meal Orally Once a day for 30 day(s) Not-Taking/PRN 24 hr metoprolol succinate 25 mg extended release oral tablet (12 sources) beta-Adrenergic Akhil Start: 10-28-2022 take 1 tablet by mouth every twenty-four hours in the morning metoprolol succinate XL (Toprol-XL) 25 MG 24 hr tablet Take 1 tablet by mouth in the morning. 0 10/28/2022 Active Start: 10-28-2022 take 1 tablet by nabeel th once daily in the morning metoprolol succinate XL (TOPROL XL) 25 mg 24 hr tablet Indications: Essential hypertension take 1 tablet by mouth every morning 90 tablet 1 10/28/2022 Active Multiple Vitamins-Minerals (Womens 50+ Multi Vitamin) tablet (3 sources) Start: 05-02-2022 take 1 tablet by mouth in the morning Multiple Vitamins-Minerals (Womens 50+ Multi Vitamin) tablet Take 1 tablet by mouth in the morning. 0 05/02/2022 Active af-rll-kdywm-calcium carb-K1 400 mcg-500 mg calcium-20 mcg tablet (5 sources) Start: 05-02-2022 take 1 tablet by mouth once in the morning az-wpa-occzi-calcium carb-K1 400 mcg-500 mg calcium-20 mcg tablet Take 1 tablet by mouth in the morning. 90 tablet 0 05/02/2022 Active naloxone hydrochloride 40 mg/ml nasal spray (5 sources) Opioid Antagonist naloxone (NARCAN) 4 mg/actuation spray,non-aerosol nasal spray Administer 1 spray (4 mg total) into each nostril as needed. 1 spray Q2-3 minutes as needed 0 Active 24 hr niacin 1000 mg extended release oral tablet (9 sources) Nicotinic Acid take 1 tablet by mouth twice daily at mealtime niacin ER 1000 MG ER tablet 1 tablet with food Orally BID 0 Active take 1 tablet by nabeel th every twenty-four hours Niacin ER 1000 MG 1 tablet with food Orally Once a day for 30 day(s) Not-Taking [place] 3 1000 MG (4 sources) take 1 capsule by mouth once daily [place] 3 1000 MG 1 capsule Orally Once a day for 30 day(s) Active omeprazole 20 mg delayed release oral capsule (13 sources) Proton Pump Inhibitor Start: 10-17-2022 End: 03-20-2023 take 1 capsule by mouth in the morning omeprazole (PriLOSEC) [address] capsule Take 1 capsule by mouth in the morning and 1 capsule before bedtime. 0 10/17/2022 Active take 1 tablet by mouth every [...] 170 00 mg powder for oral solution (5 sources) Osmotic Laxative polyethylene gl ycol (GLYCOLAX) [...] chloride 10 meq extended release oral capsule (5 sources) potassium chlori de (KLOR-CON SPRINKLE) 10 MEQ CR capsule 2 capsules with food Orally Once a day 0 Active saccharomyces boulardii 250 mg oral capsule (4 sources) take 1 capsule by mo [facility] every twenty-four hours Probiotic 250 MG 1 capsule Orally once a day for 30 days Active take 1 capsule by mo ut every twelve hours Probiotic 250 MG 1 capsule Orally Twice a day for 30 day(s) Active sertraline 50 mg oral tablet (10 sources) Serotonin Reuptake Inhibitor Start: 11-08-2022 take 1 tablet by mouth in the morning sertraline (Zoloft) 50 MG tablet Take 1 tablet by mouth in the morning. 0 11/08/2022 Active Super B-Complex - (4 sources) Super B-Complex - as directed Orally Active Super B-Complex - as directed Orally Not-Taking vitamin e d-alpha 400 unt or al capsule (8 sources) alpha tocopherol (Vitamin E) 400 units capsule 1 capsule 1 (one) time each day at the same time 0 Active vitamin E 400 un its capsule take 1 tablet by mouth once mariposa y vitamin E 400 units capsule 1 tablet [...] Root 550 MG as directed Orally Not-Taking MS Contin 30 MG (1 source) Start: [...] Date Documented Da te Episodic/Chronic Anxiety disorders (5 sources) Anxiety; Translations: [Anxiety disorder, unspecified] Onset: 11-16-2021 11-16-2021 Chronic Asthma (5 sources) Reactive airway disease; Translations: [Unspecified asthma, uncomplicated] Onset: 11-16-2021 11-16-2021 Chronic Calculus of urinary tract (7 sources) Kidney stone; Translations: [Calculus of kidney] Onset: 05-08-2022 Episodic Cataract (8 sources) Age-related nuclear cataract, right eye; Translations: [Age-related nuclear cataract, left eye] Onset: 10-07-2021 Chronic Chronic kidney disease (15 sources) Chronic kidney disease stage 4; Translations: [Chronic kidney disease, stage 4 (severe)] Onset: 06-08-2022 Chronic Chronic kidney disease (3 sources) Chronic kidney disease; Translations: [Chronic kidney disease, stage 3b] Onset: 10-19-2022 Deficiency and other anemia (3 sources) Anemia, unspecified Episodic Disorders of lipid metabolism (10 sources) Hyperlipidemia, unspecified; Translations: [Pure hypercholesterolemia , unspecified] Onset: 10-11-2021 Chronic Esophageal disorders (6 sources) Gastro-esophageal reflux disease without esophagitis; Translations: [Gastroesophageal reflux disease] Onset: 10-11-2021 11-16-2021 Chronic Essential hypertension (6 sources) Essential (primary) hypertension; Translations: [Essential hypertension] Onset: 05-03-2021 11-16-2021 Chronic Headache; including migraine (5 sources) Migraine; Translations: [Migraine, unspecified, not intractable, without status migrainosus] Onset: 11-16-2021 11-16-2021 Chronic Hypertension with complications and secondary hypertension (17 sources) Hypertensive renal disease; Translations: [Hypertensive chronic kidney disease with stage 1 through stage 4 chronic kidney disease, or unspecified chronic kidney disease] Onset: 03-31-2022 Resolved: 10-19-2022 Chronic Nutritional deficiencies (11 sources) Vitamin D deficiency; Translations: [Vitamin D [...] syndrome; Translations: [Chronic pain syndrome] Chronic Other nervous system disorders (2 sources) Other chronic pain; Translations: [Other chronic pain] Onset: 03-30-2023 Chronic Other non-traumatic joint disorders (1 source) Bilateral chronic pain of upper limbs; Translations: [Pain in right shoulder] 03-30-2023 Episodic Other non-traumatic joint disorders (2 sources) Pain in right shoulder; Translations: [Pain in right shoulder] Onset: 03-30-2023 Episodic Other non-traumatic joint disorders (2 sources) Pain in left shoulder; Translations: [Pain in left shoulder] Onset: 03-30-2023 Episodic Other skin disorders (2 sources) Actinic keratosis; Translations: [Actinic keratosis] 04-07-2023 Episodic Other upper respiratory disease (5 sources) Allergic rhinitis; Translations: [Allergic rhinitis, unspecified] Onset: 09-21-2020 11-16-2021 Chronic Peripheral and visceral atherosclerosis (7 sources) Peripheral vascular disease; Translations: [Peripheral vascular disease, unspecified] Onset: 02-01-2021 11-16-2021 Chronic Spondylosis; intervertebral disc disorders; other back problems (20 sources) Degeneration of intervertebral disc; Translations: [Degeneration of intervertebral disc] Onset: 11-16-2021 11-16-2021 Chronic Spondylosis; intervertebral disc disorders; other back problems (6 sources) Spinal stenosis of lumbar region; Translations: [Spinal stenosis, lumbar region without neurogenic claudication] Onset: 09-14-2017 11-16-2021 Episodic Substance-related disorders (7 sources) Nicotine dependence, cigarettes, uncomplicated; Translations: [Tobacco dependence syndrome] Onset: 10-11-2021 11-16-2021 Chronic Thyroid disorders (6 sources) Hypothyroidism, unspecified; Translations: [Hypothyroidism] Onset: 11-16-2021 11-16-2021 Chronic Past or Other Problems Problem Classification Problem Date Documented Da te Episodic/Chronic Abdominal hernia (5 sources) Hiatal hernia; Translations: [Diaphragmatic hernia without obstruction or gangrene] Onset: 11-16-2021 11-16-2021 Episodic Complications of surgical procedures or medical care (5 sources) Complication of surgical procedure; Translations: [Unspecified complication of procedure, initial encounter] Onset: 10-26-2018 11-16-2021 Episodic Diabetes mellitus without complication (5 sources) Hyperglycemia; Translations: [Hyperglycemia, unspecified] Onset: 06-20-2016 11-16-2021 Episodic Fluid and electrolyte disorders (5 sources) Hypokalemia; Translations: [Hypokalemia] Onset: 11-16-2021 11-16-2021 Episodic Mood disorders (5 sources) Mood disorders Onset: 02-09-2023 Resolved: 03-30-2023 02-09-2023 Other bone disease and musculoskeletal deformities (5 sources) Osteopenia; Translations: [Other specified disorders of bone density and structure, unspecified site] Onset: 11-16-2021 11-16-2021 Episodic Other circulatory disease (5 sources) Femoral bruit; Translations: [Other specified symptoms and signs involving the circulatory and respiratory systems] Onset: 11-16-2021 11-16-2021 Episodic Other connective tissue disease (1 source) Myalgia, unspecified site; Translations: [MYALGIA UNSPECIFIED SITE] Onset: 11-19-2021 Episodic Other connective tissue disease (5 sources) Acquired trigger finger; Translations: [Trigger finger, unspecified finger] Onset: 11-16-2021 11-16-2021 Episodic Other connective tissue disease (5 sources) Fibromyalgia; Translations: [Fibromyalgia] Onset: 11-16-2021 11-16-2021 Episodic Other non-epithelial cancer of skin (5 sources) Basal cell carcinoma of skin; Translations: [Basal cell carcinoma of skin, unspecified] Onset: 11-16-2021 11-16-2021 Episodic Other nutritional; endocrine; and metabolic disorders (5 sources) Overweight; Translations: [Overweight] Onset: 06-15-2016 Resolved: 07-18-2022 07-18-2022 Episodic Residual codes; unclassified (1 source) Acquired absence of both cervix and uterus; Translations: [ACQUIRED ABSENCE BOTH CERVIX AND UTERUS] Onset: 10-11-2021 Episodic Results Test Name Value Interpretation Reference Range Facility No Panel Informationon 04-07 [facility] DRUG SCREEN, URINEon 024 AMPHETAMINE/METHAMP Negative Normal NEG [facility] Comment on above: Result Comment: AMPH /METH screening cut off = 1000 ng/mL Performed By: #### D HOLT #### [facility] ([id number]) [address] [place] [address] BARBITURATES Negative Normal NEG [facility] Comment on above: Result Comment: Rhonda iturates screening cut off value = 200 ng/mL Performed By: #### D HOLT #### [facility] ([id number]) [address], [address] [place] [address] BENZODIAZEPINES Negative Normal [facility] Comment on above: Result Comment: Guillermo odiazepines screening cut off value = 200 ng/mL Performed By: #### D HOLT #### [facility] ([id number]) [address] [place] [address] CANNABINOIDS Negative Normal NEG [facility] Comment on above: Result Comment: Shanita abinoids/THC screening cut off value = 50 ng/mL Performed By: #### D HOLT #### [facility] ([id number]) [address] [place] [address] COCAINE METABOLITE Negative Normal NEG [facility] Comment on above: Result Comment: Coca ine screening cut off value = 300 ng/mL Performed By: #### D HOLT #### [facility] ([id number]) [address] [place] [address] ECSTASY Negative Normal NEG [facility] Comment on above: Result Comment: Ecst asy screening cut off value = 500 ng/mL This report is intended for use in clinical monitoring or management of patients. Performed By: #### D HOLT #### [facility] ([id number]) [address] [place] [address] METHADONE Negative Normal NEG [facility] Comment on above: Result Comment: Meth adone screening cut off value = 300 ng/mL. Performed By: #### D HOLT #### [facility] ([id number]) [address] [place] [address] OPIATES Positive Abnormal NEG [facility] Comment on above: Result Comment: Conf irmation available upon request. Opiates screening cut off value = 300 ng/mL NOTE: This test is used for the detection of codeine, hydrocodone (>1000 ng/mL), morphine and hydromorphone (>900 ng/mL) in urine. Performed By: #### D HOLT #### [facility] ([id number]) [address] [place] [address] OXYCODONE Negative Normal NEG [facility] Comment on above: Result Comment: Oxyc odone screening cut off value = 300 ng/mL NOTE: This test is used for the detection of oxycodone and oxymorphone in urine. Performed By: #### D HOLT #### [facility] ([id number]) [address] [place] [address] PHENCYCLIDINE Negative Normal NEG [facility] Comment on above: Result Comment: Phen cyclidine screening cut off value = 25 ng/mL Performed By: #### D HOLT #### [facility] ([id number]) [address] [place] [address] Drug Screen, Urineon 024 Amphetamines Screen method >1000 ng/mL Ql (U) Negative Negative^[facility] Comment on above: AMPH/METH screening cut off = 1000 ng/mL Barbiturates Screen Ql (U) Negative N egative^[facility] Comment on above: Barbiturates screeni ng cut off value = 200 ng/mL Benzodiazepines Ql (U) Negative Negat iggy^[facility] Comment on above: Benzodiazepines scre ening cut off value = 200 ng/mL Cocaine Ql (U) Negative Negative^[facility] Comment on above: Cocaine screening cu t off value = 300 ng/mL Interpretation and review of laboratory results Abnormal [facility] Methadone Screen Ql (U) Negative Nega tive^[facility] Comment on above: Methadone screening cut off value = 300 ng/mL. Methylenedioxymethamphetamin e Screen Ql (U) Negative Negative^[facility] Comment on above: Ecstasy screening cu t off value = 500 ng/mL This report is intended for use in clinical monitoring or management of patients. Opiates Screen Ql (U) Positive Abnormal Negati ve^[facility] Comment on above: Confirmation availab le upon request. Opiates screening cut off value = 300 ng/mL NOTE: This test is used for the detection of codeine, hydrocodone (>1000 ng/mL), morphine and hydromorphone (>900 ng/mL) in urine. oxyCODONE Ql (U) Negative Negative^[facility] Comment on above: Oxycodone screening cut off value = 300 ng/mL NOTE: This test is used for the detection of oxycodone and oxymorphone in urine. Phencyclidine Screen method >25 ng/mL Ql (U) Negative Negative^[facility] Comment on above: Phencyclidine screen ing cut off value = 25 ng/mL Tetrahydrocannabinol Screen method >50 ng/mL Ql (U) Negative Negative^[facility] Comment on above: Cannabinoids/THC scr eening cut off value = 50 ng/mL [facility] PTH INTACTon 06-02-2022 PTH, Intact 14 pg/mL Critically low 15-65 [facility] Comment on above: Performed By: #### P THINT ####[facility] [address] [place], [place] [address]Dr. Ashok Bailey HEMOGRAM AND PLATELon 06-01 Hematocrit (Bld) [Volume fraction] 32.0 % Critically low 36.0-48.0 [facility] Comment on above: Performed By: #### H H ####[facility] [address] [place], [place] [address]Dr. Ashok Bailey Hemoglobin (Bld) [Mass/Vol] 10.6 g/dL Critically low 12.0 -16.0 [facility] Comment on above: Performed By: #### H H ####[facility] [address] [address]Dr. Ashok Bailey MCH (RBC) [Entitic mass] 31.4 pg Normal 26.7-34.[address] [facility] Comment on above: Performed By: #### H H ####[facility] [address] [place], [place] [address]Dr. Ashok Bailey MCHC (RBC) [Mass/Vol] 33.1 g/dL Normal 29.9-35.2 [facility] Comment on above: Performed By: #### H H ####[facility] [address] [place], [place] [address]Dr. Neelamandrew Bailey MCV (RBC) [Entitic vol] 94.7 fL Normal 81.0-99.0 [facility] Comment on above: Performed By: #### H H ####[facility] [address] [place] [address]Dr. Ashok Bailey PLT 345 103/ul Normal 150-[address] [facility] Comment on above: Performed By: #### H H ####[facility] [address] [place], [place] [address]Dr. Ashok Bailey RBC 3.38 106/ul Critically low 4.20-5.40 [facility] Comment on above: Performed By: #### H H ####[facility] [address]fs[address] [place] [address]Dr. Ashok Leo WBC 8.4 103/ul Normal 4.0-11.0 [facility] Comment on above: Performed By: #### H H ####[facility] [address] [place], [place] [address]Dr. Ashok Bailey MAGNESIUMon 06-01-2022 Magnesium [Mass/Vol] 1.8 mg/dL Normal 1.8-2.[address] [facility] Comment on above: Performed By: #### C MP, URIC, MG, PHOS ####[facility] [address] [place] [address]Dr. Neelamandrew Bailey PHOSPHORUSon 06-01-2022 Phosphate [Mass/Vol] 4.0 mg/dL Normal 2.6-4.7 [facility] Comment on above: Performed By: #### C MP, URIC, MG, PHOS ####[facility] [address] [place], [place] [address]Dr. Ashok Bailey PROF 14(COMP METB)on 023 Albumin [Mass/Vol] 3.8 g/dL Normal 3.4-5.0 [facility] Comment on above: Performed By: #### C MP, URIC, MG, PHOS ####[facility] [address] [place], [place] [address]Dr. Ashok Bailey Albumin/Globulin [Mass ratio] 1.1 {ratio} Normal [facility] Comment on above: Performed By: #### C MP, URIC, MG, PHOS ####[facility] [address] [place] [address]Dr. Neelamandrew Bailey ALP [Catalytic activity/Vol] 96 U/L Normal 46-[address] [facility] Comment on above: Performed By: #### C MP, URIC, MG, PHOS ####[facility] [address]az[address] [place] [address]Dr. Ashok Bailey ALT [Catalytic activity/Vol] 17 U/L Normal 14-[address] [facility] Comment on above: Performed By: #### C MP, URIC, MG, PHOS ####[facility] [address]wtx[address] [place] [address]Dr. Ashok Bailey Anion gap [Moles/Vol] 15.4 mmol/L Normal Th [facility] Comment on above: Performed By: #### C MP, URIC, MG, PHOS ####[facility] Fel[address]cy[address] [place] [address]Dr. Ashok Bailey AST [Catalytic activity/Vol] 15 U/L Normal 15-37 [facility] Comment on above: Performed By: #### C MP, URIC, MG, PHOS ####[facility] [address] [place], [place] [address]Dr. Ashok Bailey Bilirubin [Mass/Vol] 0.3 mg/dL Normal 0.2-1.0 [facility] Comment on above: Performed By: #### C MP, URIC, MG, PHOS ####[facility] [address] [place], [place] [address]Dr. Ashok Bailey Calcium [Mass/Vol] 9.1 mg/dL Normal 8.5-10.1 [facility] Comment on above: Performed By: #### C MP, URIC, MG, PHOS ####[facility] [address] [place], [place] [address]Dr. Ashok Bailey Chloride [Moles/Vol] 103 mmol/L Normal 98-107 [facility] Comment on above: Performed By: #### C MP, URIC, MG, PHOS ####[facility] [address] [place], [place] [address]Dr. Ashok Bailey CO2 [Moles/Vol] 24.9 mmol/L Normal 21.0-32.0 [facility] Comment on above: Performed By: #### C MP, URIC, MG, PHOS ####[facility] [address] [place], [place] [address]Dr. Ashok Bailey Creatinine [Mass/Vol] 1.35 mg/dL Critically high 0.55-1.02 [facility] Comment on above: Performed By: #### C MP, URIC, MG, PHOS ####[facility] [address] [place], [place] [address]Dr. Ashok Bailey EGFR-AF TAIWANESE 46 mL/min/1.73m2 Critically low >=[address] [facility] Comment on above: Performed By: #### C MP, URIC, MG, PHOS ####[facility] [address] [place] [address]Dr. Ashok Bailey EGFR-NON AF TAIWANESE 38 mL/min/1.73m2 Critically low >=60 [facility] Comment on above: Performed By: #### C MP, URIC, MG, PHOS ####[facility] [address] [place] [address]Dr. Ashok Bailey Globulin (S) [Mass/Vol] 3.4 g/dL Normal T [facility] Comment on above: Performed By: #### C MP, URIC, MG, PHOS ####[facility] [address]eb[address] [place] [address]Dr. Ashok Bailey Glucose [Mass/Vol] 86 mg/dL Normal 74-106 [facility] Comment on above: Performed By: #### C MP, URIC, MG, PHOS ####[facility] [address] [place] [address]Dr. Ashok Bailey Potassium [Moles/Vol] 4.3 mmol/L Normal 3.5-5.1 [facility] Comment on above: Performed By: #### C MP, URIC, MG, PHOS ####[facility] [address] [place] [address]Dr. Ashok Bailey Protein [Mass/Vol] 7.2 g/dL Normal 6.4-8.2 [facility] Comment on above: Performed By: #### C MP, URIC, MG, PHOS ####[facility] [address] [place] [address]Dr. Ashok Bailey Sodium [Moles/Vol] 139 mmol/L Normal 136-145 [facility] Comment on above: Performed By: #### C MP, URIC, MG, PHOS ####[facility] [address] [place] [address]Dr. Ashok Bailey Urea nitrogen [Mass/Vol] 20.0 mg/dL Critically high 7.0-18 .0 [facility] Comment on above: Performed By: #### C MP, URIC, MG, PHOS ####[facility] [address] [place] [address]Dr. Ashok Bailey Urea nitrogen/Creatinine [Ma ss ratio] 14.8 mg/mg Normal [facility] Comment on above: Performed By: #### C MP, URIC, MG, PHOS ####[facility] [address] [place] [address]Dr. Ashok Bailey UA RANDOMon 06-01-2022 Bilirubin Ql (U) Negative Normal NEGATIVE [facility] Comment on above: Performed By: #### U A #### [facility] [address] [place] [address] Dr. Ashok Bailey Clarity (U) CLEAR Normal CLEAR [facility] Comment on above: Performed By: #### U A #### [facility] [address] [place] [address] Dr. Ashok Bailey Color (U) LT. YELLOW Normal YELLOW [facility] Comment on above: Performed By: #### U A #### [facility] [address] [place] [address] Dr. Ashok Bailey Glucose Ql (U) Negative Normal NEGATIVE [facility] Comment on above: Performed By: #### U A #### [facility] [address] [place] [address] Dr. Ashok Bailey Hemoglobin Ql (U) Negative Normal NEGATIVE [facility] Comment on above: Performed By: #### U A #### [facility] [address] [place] [address] Dr. Ashok Bailey Ketones Ql (U) Negative Normal NEGATIVE [facility] Comment on above: Performed By: #### U A #### [facility] [address] [place] [address] Dr. Ashok Bailey LEUKOCYTES Negative Normal NEGATIVE [facility] Comment on above: Performed By: #### U A #### [facility] [address] [place] [address] Dr. Ashok Bailey Nitrite Ql (U) Negative Normal NEGATIVE [facility] Comment on above: Performed By: #### U A #### [facility] [address] [place] [address] [address] Ashok Bailey pH (U) 6.0 [pH] Normal 5-9 [facility] Comment on above: Performed By: #### U A #### [facility] [address] [address] [address] Ashok Bailey SPEC GRAVITY 1.010 Normal 1.005-<=1. 025 [facility] Comment on above: Performed By: #### U A #### [facility] [address] [address] [address] Ashok Bailey UA PROTEIN Negative Normal NEGATIVE/ TRACE [facility] Comment on above: Performed By: #### U A #### [facility] [address] [place] [address] Dr. Ashok Bailey Urobilinogen Qn (U) 0.2 {Drew'U}/dL Normal 0.2 - 1.0 [facility] Comment on above: Performed By: #### U A #### [facility] [address] [place] [address] Dr. Ashok Bailey URIC ACID SERUMon 06-01-2022 Urate [Mass/Vol] 3.9 mg/dL Normal 2.6-6.0 [facility] Comment on above: Performed By: #### C MP, URIC, MG, PHOS ####[facility] [address] [place] [address]Dr. Ashok Bailey URINE T PROTEIN CREAT RATIOo n 06-01-2022 Protein (U) [Mass/Vol] 14.0 mg/dL Critically high <=12.0 [facility] Comment on above: Performed By: #### U RTPCR #### [facility] [address] [address] [address] Ashok Bailey UR PROT CREAT RAT 0.28 Normal [facility] Comment on above: Performed By: #### U RTPCR #### [facility] [address] [place] [address] Dr. Ashok Bailey URINE CREAT 50.47 mg/dL Normal 20.00-300. 00 [facility] Comment on above: Performed By: #### U RTPCR #### [facility] [address] [place], [place] [id number] Dr. Ashok Bailey VITAMIN D 25 OHon 06-01-2022 VIT D 25-OH 19.2 ng/mL Normal [facility] Comment on above: Performed By: #### F T4 #### [facility] [address] [place], [place] [id number] Dr. Ashok Bailey VIT D RANGES SEE BELOW Normal [facility] Comment on above: Result Comment: <20 ng/mL Vit D deficient 20 - <30 ng/mL Vit D insufficient 30 - 100 ng/mL Vit D sufficient >100 ng/mL Potential Toxicity Performed By: #### F T4 #### [facility] [address] [place] [address] [address] [address] Ashok Bailey US KIDNEYSon 05-03-2022 US KIDNEYS US KIDNEYS EXAM DATE: 05/03/2022 7:10 AM MST COMPARISON: None available. INDICATION: Stage IV chronic kidney disease. TECHNIQUE: Real-time ultrasound scanning of the kidneys and bladder was performed by the bill clerk. Pulp Roller static images are submitted for review. FINDINGS: [...] by: JOBY POLO Date: 2022-05-03 12:[address] [facility] FREE T4on 03-25-2022 Free T4 [Mass/Vol] 1.26 ng/dL Normal 0.76-1.46 [facility] Comment on above: Performed By: #### F T4 #### [facility] [address] [place] [address] [address] Ashok Bailey PROF CHEM 8 (BAS METB)on Anion gap [Moles/Vol] 17.6 mmol/L Normal [facility] Comment on above: Performed By: #### B MP, TSH ####[facility] [address] [place] [address]Dr. Ashok Bailey Calcium [Mass/Vol] 8.9 mg/dL Normal 8.5-10.1 [facility] Comment on above: Performed By: #### B ROBERTO, TSH ####[facility] [address] [place] [address]Dr. Ashok Bailey Chloride [Moles/Vol] 97 mmol/L Critically low 98-[address] [facility] Comment on above: Performed By: #### B MP, TSH ####[facility] [address] [place] [id number]. Ashok Bailey CO2 [Moles/Vol] 22.2 mmol/L Normal 21.0-32.0 [facility] Comment on above: Performed By: #### B MP, TSH ####[facility] [address] [place] [address]Dr. Ashok Bailey Creatinine [Mass/Vol] 2.42 mg/dL Critically high 0.55-1.[address] [facility] Comment on above: Performed By: #### B MP, TSH ####[facility] [address] [place] [address]Dr. Ashok Bailey EGFR-AF TAIWANESE 24 mL/min/1.73m2 Critically low >=[address] [facility] Comment on above: Performed By: #### B MP, TSH ####[facility] [address] [place] [id number]. Ashok Leo EGFR-NON AF TAIWANESE 20 mL/min/1.73m2 Critically low >=60 [facility] Comment on above: Performed By: #### B ROBERTO, TSH ####[facility] [address] [place] [address]Dr. Ashok Bailey Glucose [Mass/Vol] 84 mg/dL Normal 74-106 [facility] Comment on above: Performed By: #### B ROBERTO, TSH ####[facility] [address] [place] [address]Dr. Ashok Bailey Potassium [Moles/Vol] 4.8 mmol/L Normal 3.5-5.1 [facility] Comment on above: Performed By: #### B ROBERTO, TSH ####[facility] [address] [place] [address]Dr. Ashok Bailey Sodium [Moles/Vol] 132 mmol/L Critically low 136-145 [facility] Comment on above: Performed By: #### B ROBERTO, TSH ####[facility] [address] [place] [address]Dr. Ashok Bailey Urea nitrogen [Mass/Vol] 43.0 mg/dL Critically high 7.0-18 .0 [facility] Comment on above: Performed By: #### B ROBERTO, TSH ####[facility] [address] [place], [place] [address]Dr. Ashok Bailey Urea nitrogen/Creatinine [Ma ss ratio] 17.8 mg/mg Normal [facility] Comment on above: Performed By: #### B ROBERTO, TSH ####[facility] [address] [place] [address]Dr. Ashok Bailey TSHon 03-25-2022 TSH 2.368 uIU/mL Normal 0.358-3.74 0 [facility] Comment on above: Performed By: #### B ROBERTO, TSH ####[facility] [address] [place] [address]Dr. Ashok Bailey CPKon 11-12-2021 CK [Catalytic activity/Vol] 207 U/L Critically high 26- 192 [facility] Comment on above: Performed By: #### C MP, CK, TSH, LIPID #### [facility] [address] [address] [address] Ashok Bailey FREE T4on 11-12-2021 Free T4 [Mass/Vol] 1.16 ng/dL Normal 0.76-1.46 [facility] Comment on above: Performed By: #### F T4 #### [facility] [address] [address] [address] Ashok Bailey LIPID PROFILEon 11-12-2021 CHOL-HDL RATIO NORM SEE BELOW Normal [facility] Comment on above: Result Comment: 3.3 - 4.4 LOW RISK 4.4 - 7.1 AVERAGE RISK 7.1 - 11.0 MODERATE RISK >11.0 HIGH RISK Performed By: #### C MP, CK, TSH, LIPID #### [facility] [address] [address] [address] Ashok Bailey Cholesterol [Mass/Vol] 215 mg/dL Critically high <=200 [facility] Comment on above: Performed By: #### C MP, CK, TSH, LIPID #### [facility] [address] [address] [address] Ashok Bailey Cholesterol in HDL [Mass/Vol] 74 mg/dL Critically high 4 0-60 [facility] Comment on above: Performed By: #### C MP, CK, TSH, LIPID #### [facility] [address] [address] [address] Ashok Bailey Cholesterol in LDL [Mass/Vol] 114.4 mg/dL Normal [facility] Comment on above: Performed By: #### C MP, CK, TSH, LIPID #### [facility] [address] [address] [address] Ashok Bailey Cholesterol.total/Cholestero l in HDL [Mass ratio] 2.9 {ratio} Normal [facility] Comment on above: Performed By: #### C MP, CK, TSH, LIPID #### [facility] [address] [address] [address] Ashok Bailey HDL NORMAL > or = 60 mg/dl - LOW CARDIOVASCULAR RISK <40 mg/dl - HIGH CARDIOVASCULAR RISK Normal [facility] Comment on above: Performed By: #### C MP, CK, TSH, LIPID #### [facility] [address] [address] [address] Ashok Bailey LDL CALC NORMAL SEE BELOW Normal [facility] Comment on above: Result Comment: <100 mg/dl OPTIMAL 100 - 129 mg/dl NEAR OR ABOVE OPTIMAL 130 - 159 mg/dl BORDERLINE HIGH 160 - 189 mg/dl HIGH >190 mg/dl VERY HIGH Performed By: #### C MP, CK, TSH, LIPID #### [facility] [address] [address] [address] Ashok Bailey Triglyceride [Mass/Vol] 133 mg/dL Normal <=150 T [facility] Comment on above: Performed By: #### C MP, CK, TSH, LIPID #### [facility] [address] [address] [address] Ashok Bailey VLDL CALC 26.6 mg/dL Normal [facility] Comment on above: Performed By: #### C MP, CK, TSH, LIPID #### [facility] [address] [address] [address] Ashok Bailey PROF 14(COMP METB)on 022 Albumin [Mass/Vol] 3.9 g/dL Normal 3.4-5.0 [facility] Comment on above: Performed By: #### C MP, CK, TSH, LIPID #### [facility] [address] [address] [address] Ashok Bailey Albumin/Globulin [Mass ratio] 1.1 {ratio} Normal [facility] Comment on above: Performed By: #### C MP, CK, TSH, LIPID #### [facility] [address] [address] [address] Ashok Bailey ALP [Catalytic activity/Vol] 84 U/L Normal 46-116 [facility] Comment on above: Performed By: #### C MP, CK, TSH, LIPID #### [facility] [address] [address] [address] Ashok Bailey ALT [Catalytic activity/Vol] 18 U/L Normal 14-59 [facility] Comment on above: Performed By: #### C MP, CK, TSH, LIPID #### [facility] [address] [address] [address] Ashok Bailey Anion gap [Moles/Vol] 15.1 mmol/L Normal Th [facility] Comment on above: Performed By: #### C MP, CK, TSH, LIPID #### [facility] [address] [address] [address] Ashok Bailey AST [Catalytic activity/Vol] 11 U/L Critically low 15- 37 [facility] Comment on above: Performed By: #### C MP, CK, TSH, LIPID #### [facility] [address] [address] [address] Ashok Bailey Bilirubin [Mass/Vol] 0.3 mg/dL Normal 0.2-1.0 [facility] Comment on above: Performed By: #### C MP, CK, TSH, LIPID #### [facility] [address] [place] [address] Dr. Ashok Bailey Calcium [Mass/Vol] 9.3 mg/dL Normal 8.5-10.1 [facility] Comment on above: Performed By: #### C MP, CK, TSH, LIPID #### [facility] [address] [address] [address] Ashok Bailey Chloride [Moles/Vol] 101 mmol/L Normal 98-107 [facility] Comment on above: Performed By: #### C MP, CK, TSH, LIPID #### [facility] [address] [place] [address] Dr. Ashok Bailey CO2 [Moles/Vol] 22.9 mmol/L Normal 21.0-32.0 [facility] Comment on above: Performed By: #### C MP, CK, TSH, LIPID #### [facility] [address] [address] [address] Ashok Bailey Creatinine [Mass/Vol] 1.67 mg/dL Critically high 0.55-1.02 [facility] Comment on above: Performed By: #### C MP, CK, TSH, LIPID #### [facility] [address] [place] [address] Dr. Ashok Bailey EGFR-AF TAIWANESE 36 mL/min/1.73m2 Critically low >=60 [facility] Comment on above: Performed By: #### C MP, CK, TSH, LIPID #### [facility] [address] [place] [address] Dr. Ashok Bailey EGFR-NON AF TAIWANESE 30 mL/min/1.73m2 Critically low >=60 [facility] Comment on above: Performed By: #### C MP, CK, TSH, LIPID #### [facility] [address] [place] [address] Dr. Ashok Bailey Globulin (S) [Mass/Vol] 3.5 g/dL Normal T [facility] Comment on above: Performed By: #### C MP, CK, TSH, LIPID #### [facility] [address] [place] [address] Dr. Ashok Bailey Glucose [Mass/Vol] 96 mg/dL Normal 74-106 [facility] Comment on above: Performed By: #### C MP, CK, TSH, LIPID #### [facility] [address] [place] [address] Dr. Ashok Bailey Potassium [Moles/Vol] 5.0 mmol/L Normal 3.5-5.1 [facility] Comment on above: Performed By: #### C MP, CK, TSH, LIPID #### [facility] [address] [place] [address] Dr. Ashok Bailey Protein [Mass/Vol] 7.4 g/dL Normal 6.4-8.2 [facility] Comment on above: Performed By: #### C MP, CK, TSH, LIPID #### [facility] [address] [place] [address] Dr. Ashok Bailey Sodium [Moles/Vol] 134 mmol/L Critically low 136-145 [facility] Comment on above: Performed By: #### C MP, CK, TSH, LIPID #### [facility] [address] [place] [address] Dr. Ashok Bailey Urea nitrogen [Mass/Vol] 27.0 mg/dL Critically high 7.0-18 .0 [facility] Comment on above: Performed By: #### C MP, CK, TSH, LIPID #### [facility] [address] [place] [address] Dr. Ashok Bailey Urea nitrogen/Creatinine [Ma ss ratio] 16.2 mg/mg Normal [facility] Comment on above: Performed By: #### C MP, CK, TSH, LIPID #### [facility] [address] [place] [address] Dr. Ashok Bailey TSHon 11-12-2021 TSH 3.073 uIU/mL Normal 0.358-3.74 0 [facility] Comment on above: Performed By: #### C MP, CK, TSH, LIPID #### [facility] [address] [place] [address] Dr. Ashok Bailey COMPREHENSIVE METABOLIC PANE Lucas 05-30-2021 Albumin [Mass/Vol] 4.7 g/dL Normal 3.6-5.1 [facility] Comment on above: Performed By: #### 7 600, [id number] #### [facility] [place] [address] Professional Driver: Austin Tobin MD Albumin/Globulin [Mass ratio] 1.8 {ratio} Normal 1.0-2 .5 [facility] Comment on above: Performed By: #### 7 600, [id number] #### [facility] [place] [address] Professional Driver: Austin Tobin MD ALP [Catalytic activity/Vol] 84 U/L Normal 37-153 [facility] Comment on above: Performed By: #### 7 600, [id number] #### [facility] [place] [address] Professional Driver: Austin Tobin MD ALT [Catalytic activity/Vol] 13 U/L Normal 6-29 [facility] Comment on above: Performed By: #### 7 600, [id number] #### [facility] [address] [place] [address] Professional Driver: Austin Tobin MD AST [Catalytic activity/Vol] 12 U/L Normal 10-35 [facility] Comment on above: Performed By: #### 7 600, 45151 #### [facility] [place] [address] Professional Driver: Austin Tobin MD Bilirubin [Mass/Vol] 0.3 mg/dL Normal 0.2-1.[address] [facility] Comment on above: Performed By: #### 7 600, [id number] #### [facility] [place] [address] Professional Driver: Austin Tobin MD BUN/CREATININE RATIO NOT APPLICABLE Normal 6-22 [facility] Comment on above: Performed By: #### 7 600, [id number] #### [facility] [place] [address] Professional Driver: Austin Tobin MD Calcium [Mass/Vol] 10.2 mg/dL Normal 8.6-10.4 [facility] Comment on above: Performed By: #### 7 600, [id number] #### [facility] [place] [address] Professional Driver: Austin Tobin MD Chloride [Moles/Vol] 99 mmol/L Normal 98-[address] [facility] Comment on above: Performed By: #### 7 600, 16970 #### [facility] [place] [address] Professional Driver: Austin Tobin MD CO2 [Moles/Vol] 29 mmol/L Normal 20-32 [facility] Comment on above: Performed By: #### 7 600, [id number] #### [facility] [place] [address] Professional Driver: Austin Tobin MD Creatinine [Mass/Vol] 0.71 mg/dL Normal 0.60-0.93 [facility] Comment on above: Result Comment: For patients >49 years of age, the reference limit for Creatinine is approximately 13% higher for people identified as -Slovenian. Performed By: #### 7 600, [id number] #### [facility] [address], [address] [place] [address] Professional Driver: Austin Tobin MD eGFR NON-AFR. TAIWANESE 84 mL/min/1.73m2 Normal > OR = 60 [facility] Comment on above: Performed By: #### 7 600, 03652 #### [facility] [place] [address] Professional Driver: Austin Tobin MD GFR/1.73 sq M.predicted rosa m g blacks MDRD (S/P/Bld) [Vol rate/Area] 97 mL/min/{1.73_m2} Normal > OR = 60 [facility] Comment on above: Performed By: #### 7 600, [id number] #### [facility] [place] [address] Professional Driver: Austin Tobin MD Globulin (S) [Mass/Vol] 2.6 g/dL Normal 1.9-3.7 [facility] Comment on above: Performed By: #### 7 600, [id number] #### [facility] [place] [address] Professional Driver: Austin Tobin MD Glucose [Mass/Vol] 86 mg/dL Normal 65-99 [facility] Comment on above: Result Comment: Fasting reference interval Performed By: #### 7 600, 54743 #### [facility] [place] [address] Professional Driver: Austin Tobin MD Potassium [Moles/Vol] 4.4 mmol/L Normal 3.5-5.[address] Diagnostics Comment on above: Performed By: #### 7 600, [id number] #### [facility] [place] [address] Professional Driver: Austin Tobin MD Protein [Mass/Vol] 7.3 g/dL Normal 6.1-8.1 [facility] Comment on above: Performed By: #### 7 600, 96087 #### [facility] of [address], [address] [place] [address] Professional Driver: Austin Tobin MD Sodium [Moles/Vol] 135 mmol/L Normal 135-146 [facility] Comment on above: Performed By: #### 7 600, 73510 #### [facility] of [address], [address] [place] [address] Professional Driver: Austin Tobin MD Urea nitrogen [Mass/Vol] 10 mg/dL Normal 7-25 [facility] Comment on above: Performed By: #### 7 600, 69541 #### [facility] of [address], [address] [place] [address] Professional Driver: Austin Tobin MD LIPID PANEL, [facility] 03- Cholesterol [Mass/Vol] 214 mg/dL High <200 Qu est Diagnostics Comment on above: Performed By: #### 7 600, 81329 #### [facility] of [address], [address] [place] [address] Professional Driver: Austin Tobin MD Cholesterol in HDL [Mass/Vol] 85 mg/dL Normal > OR = 50 [facility] Comment on above: Performed By: #### 7 600, 69261 #### [facility] [place] [address] Professional Driver: Austin Tobin MD Cholesterol in LDL [Mass/Vol] [...] LDL-C. Jordan HOU et al. JAUN. 2013;310(19): 9561-2694 (http://education.[employer].HIGH MOBILITY/faq/YYW848) Performed By: #### 7 600, 59643 #### [facility] of [place] [address] Professional Driver: Austin Tobin MD Cholesterol.total/Cholestero l in HDL [Mass ratio] 2.5 {ratio} Normal <5.0 [facility] Comment on above: Performed By: #### 7 600, 84754 #### [facility] [place] [address] Professional Driver: Austin Tobin MD NON HDL CHOLESTEROL 129 mg/dL (calc) Normal <130 [facility] Comment on above: Result Comment: For patients with diabetes plus 1 major ASCVD risk factor, treating to a non-HDL-C goal of <100 mg/dL (LDL-C of <70 mg/dL) is considered a therapeutic option. Performed By: #### 7 600, 77050 #### [facility] [place] [address] Professional Driver: Austin Tobin MD Triglyceride [Mass/Vol] 113 mg/dL Normal <150 Q uest Diagnostics Comment on above: Performed By: #### 7 600, 58851 #### [facility] of [place] [address] Professional Driver: Austin Tobin MD [facility]OL[facility]ANE [facility] 05-04-2021 Albumin [Mass/Vol] 4.3 g/dL Normal 3.6-5.1 [facility] Comment on above: Performed By: #### 7 600, 38424 #### [facility] of [place] [address] Professional Driver: Austin Tobin MD Albumin/Globulin [Mass ratio] 1.8 {ratio} Normal 1.0-2 .5 [facility] Comment on above: Performed By: #### 7 600, 61908 #### [facility] of [place] [address] Professional Driver: Austin Tobin MD ALP [Catalytic activity/Vol] 82 U/L Normal 37-153 [facility] Comment on above: Performed By: #### 7 600, 26308 #### [facility] of [place] [address] Professional Driver: Austin Tobin MD ALT [Catalytic activity/Vol] 11 U/L Normal 6-29 [facility] Comment on above: Performed By: #### 7 600, 02743 #### [facility] of [place] [address] Professional Driver: Austin Tobin MD AST [Catalytic activity/Vol] 12 U/L Normal 10-35 [facility] Comment on above: Performed By: #### 7 600, 74105 #### [facility] of [place] [address] Professional Driver: Austin Tobin MD Bilirubin [Mass/Vol] 0.4 mg/dL Normal 0.2-1.2 Ques t Diagnostics Comment on above: Performed By: #### 7 600, 42237 #### [facility] of [place] [address] Professional Driver: Austin Tobin MD BUN/CREATININE RATIO NOT APPLICABLE Normal 6-22 [facility] Comment on above: Performed By: #### 7 600, 04866 #### [facility] of [place] [address] Professional Driver: Austin Tobin MD Calcium [Mass/Vol] 9.4 mg/dL Normal 8.6-10.4 [facility] Comment on above: Performed By: #### 7 600, 24484 #### [facility] of [place] [address] Professional Driver: Austin Tobin MD Chloride [Moles/Vol] 98 mmol/L Normal 98-110 Ques t Diagnostics Comment on above: Performed By: #### 7 600, 37168 #### [facility] of [place] [address] Professional Driver: Austin Tobin MD CO2 [Moles/Vol] 28 mmol/L Normal 20-32 [facility] Comment on above: Performed By: #### 7 600, 67613 #### [facility] [place] [address] Professional Driver: Austin Tobin MD Creatinine [Mass/Vol] 0.73 mg/dL Normal 0.60-0.[address] [facility] Comment on above: Result Comment: For patients >49 years of age, the reference limit for Creatinine is approximately 13% higher for people identified as -Slovenian. Performed By: #### 7 600, 04066 #### [facility] [address], [address] [place] [address] Professional Driver: Austin Tobin MD eGFR NON-AFR. TAIWANESE 82 mL/min/1.73m2 Normal > OR = 60 [facility] Comment on above: Performed By: #### 7 600, 86316 #### [facility] [place] [address] Professional Driver: Austin Tobin MD GFR/1.73 sq M.predicted rosa m g blacks MDRD (S/P/Bld) [Vol rate/Area] 95 mL/min/{1.73_m2} Normal > OR = 60 [facility] Comment on above: Performed By: #### 7 600, 25302 #### [facility] [place] [address] Professional Driver: Austin Tobin MD Globulin (S) [Mass/Vol] 2.4 g/dL Normal 1.9-3.7 Q u[facility] Comment on above: Performed By: #### 7 600, 95984 #### [facility] [place] [address] Professional Driver: Austin Tobin MD Glucose [Mass/Vol] 102 mg/dL Normal 65-139 [facility] Comment on above: Result Comment: Non-fasting reference interval For someone without known diabetes, a glucose value between 100 and 125 mg/dL is consistent with prediabetes and should be confirmed with a follow-up test. Performed By: #### 7 600, 10704 #### [facility] [address] [address] Professional Driver: Austin Tobin MD Potassium [Moles/Vol] 4.3 mmol/L Normal 3.5-5.3 [facility] st Diagnostics Comment on above: Performed By: #### 7 600, 12649 #### [facility] of [address], [address] [place] [address] Professional Driver: Austin Tobin MD Protein [Mass/Vol] 6.7 g/dL Normal 6.1-8.1 [facility] Comment on above: Performed By: #### 7 600, 40678 #### [facility] of [address], [address] [place] [address] Professional Driver: Austin Tobin MD Sodium [Moles/Vol] 132 mmol/L Low 135-146 [facility] Comment on above: Performed By: #### 7 600, 81842 #### [facility] of [address], [address] [place] [address] Professional Driver: Austin Tobin MD Urea nitrogen [Mass/Vol] 12 mg/dL Normal 7-25 [facility] Comment on above: Performed By: #### 7 600, 93174 #### [facility] of [place] [address] Professional Driver: Austin Tobin MD LIPID PANEL, STANDARD 03-0 Cholesterol [Mass/Vol] 168 mg/dL Normal <200 Qu est [facility] Comment on above: Order Comment: FASTI NG:NO FASTING: NO Performed By: #### 7 600, 26924 #### [facility] of [address], [address] [place] [address] Professional Driver: Austin Tobin MD Cholesterol in HDL [Mass/Vol] 79 mg/dL Normal > OR = 50 [facility] Comment on above: Order Comment: FASTI NG:NO FASTING: NO Performed By: #### 7 600, 31666 #### [facility] of [place] [address] Professional Driver: Austin Tobin MD Cholesterol in LDL [Mass/Vol] [...] LDL-C. Jordan SS et al. JAUN. 2013;310(19): 6592-6692 (http://education.[employer]/faq/IJC089) Performed By: #### 7 600, 39108 #### [facility] [address], [address] [place] [address] Professional Driver: Austin Tobin MD Cholesterol.total/Cholestero l in HDL [Mass ratio] 2.1 {ratio} Normal <5.0 [facility] Comment on above: Order Comment: FASTI NG:NO FASTING: NO Performed By: #### 7 600, 74224 #### [facility] [address], [address] [place] [address] Professional Driver: Austin Tobin MD NON HDL CHOLESTEROL 89 mg/dL (calc) Normal <130 [facility] Comment on above: Order Comment: FASTI NG:NO FASTING: NO Result Comment: For patients with diabetes plus 1 major ASCVD risk factor, treating to a non-HDL-C goal of <100 mg/dL (LDL-C of <70 mg/dL) is considered a therapeutic option. Performed By: #### 7 600, 75946 #### [facility] [address], [address] [place] [address] Professional Driver: Austin Tobin MD Triglyceride [Mass/Vol] 79 mg/dL Normal <150 [facility] Comment on above: Order Comment: FASTI NG:NO FASTING: NO Performed By: #### 7 600, 79057 #### [facility] [address], [address] [place] [address] Professional Driver: Austin Tobin MD Vital Signs Date Time Vital Sign Value Performing Clinician Facility 03-30-2023 08:33-0500 Body height 160 cm Good Dan APRN-BUSINESS TEST ANALYST Work Phone: [facility] 03-30-2023 08:33-0500 Body mass index (BMI) [Ratio] 24.66 kg/m2 Good Dan APRN-BUSINESS TEST ANALYST Work Phone: [facility] 03-30-2023 08:33-0500 Body temperature 97.9 [degF] Good Dan CROWN POUNCER-BUSINESS TEST ANALYST Work Phone: [facility] 03-30-2023 08:33-0500 Body weight 63.14 kg Good Dan APRN-BUSINESS TEST ANALYST Work Phone: [facility] 03-30-2023 08:33-0500 Diastolic blood pressure 58 mm[Hg] Good Dan CROWN POUNCER-BUSINESS TEST ANALYST Work Phone: [facility] 03-30-2023 08:33-0500 Heart rate 78 /min Good Dan CROWN POUNCER-BUSINESS TEST ANALYST Work Phone: [facility] 03-30-2023 08:33-0500 SaO2% (BldA) [Mass fraction] 100 % Good Dan APRN-BUSINESS TEST ANALYST Work Phone: [facility] 03-30-2023 08:33-0500 Systolic blood pressure 118 mm[Hg] Good Dan APRN-BUSINESS TEST ANALYST Work Phone: [facility] 03-28-2023 11:20-0500 Body height 160.02 cm [employer] [address] Other [employer] Other 03-28-2023 11:20-0500 Body mass index (BMI) [Ratio] 24.83 kg/m2 [employer] Other [employer] Other 03-28-2023 11:20-0500 Body temperature 96.9 [degF] Aziz Bakhous Other [employer] Other 03-28-2023 11:20-0500 Body weight 63.59 kg Aziz Bakhous Other [employer] Other 03-28-2023 11:20-0500 Diastolic blood pressure 70 mm[Hg] Aziz Bakhous Other [employer] Other 03-28-2023 11:20-0500 Systolic blood pressure 138 mm[Hg] Aziz Bakhous Other [employer] Other 10-11-2022 14:20-0400 Body height 160.02 cm Aziz Bakhous Other [employer] Other 10-11-2022 14:20-0400 Body mass index (BMI) [Ratio] 24.8 kg/m2 Aziz Bakhous Other [employer] Other 10-11-2022 14:20-0400 Body temperature 96.4 [degF] Aziz Bakhous Other [employer] Other 10-11-2022 14:20-0400 Body weight 63.5 kg Aziz Bakhous Other [employer] Other 10-11-2022 14:20-0400 Diastolic blood pressure 60 mm[Hg] Aziz Bakhous Other [employer] Other 10-11-2022 14:20-0400 Respiratory rate 18 /min Aziz Bakhous Other [employer] Other 10-11-2022 14:20-0400 Systolic blood pressure 130 mm[Hg] Aziz Bakhous Other [employer] Other 06-07-2022 10:20-0400 Body height 160.02 cm Azlokesh Fays Other [employer] Other 06-07-2022 10:20-0400 Body mass index (BMI) [Ratio] 24.55 kg/m2 Azlokesh Fays Other [employer] Other 06-07-2022 10:20-0400 Body temperature 97.2 [degF] Bri Fays Other [employer] Other 06-07-2022 10:20-0400 Body weight 62.87 kg Bri Fyas Other [employer] Other 06-07-2022 10:20-0400 Diastolic blood pressure 72 mm[Hg] Bri Fays Other [employer] Other 06-07-2022 10:20-0400 Respiratory rate 18 /min Bri Fays Other [employer] Other 06-07-2022 10:20-0400 SaO2% (BldA) [Mass fraction] 97 % Bri Fays Other [employer] Other 06-07-2022 10:20-0400 Systolic blood pressure 130 mm[Hg] Aziz Latashahous Other [employer] Other 04-26-2022 09:40-0500 Body height Bri Fays Other [employer] Other 04-26-2022 09:40-0500 Body mass index (BMI) [Ratio] 24.97 kg/m2 Bri Davis Other [employer] Other 04-26-2022 09:40-0500 Body weight 63.96 kg Bri Davis Other [employer] Other 04-26-2022 09:40-0500 Diastolic blood pressure 84 mm[Hg] Bri Davis Other [employer] Other 04-26-2022 09:40-0500 SaO2% (BldA) [Mass fraction] 98 % Bri Davis Other [employer] Other 04-26-2022 09:40-0500 Systolic blood pressure 150 mm[Hg] Bri Davis Other [employer] Other Encounters Encounter Date Encounter Type Care Provider Facility Start: 04-07-2023 Bamboo flowsheet Ag mullen PA Work Phone: [facility] Start: 04-07-2023 Bamboo flowsheet Ag mullen PA Work Phone: [facility] Start: 04-07-2023 End: 04-07-2023 ambulatory AG HERNÁNDEZ Not Available Start: 04-07-2023 End: 04-07-2023 Patient encounter procedure Ag Hernández PA Work Phone: [facility] Comment on above: Actinic keratosis (P rimary Dx) Start: 03-31-2023 End: 04-01-2023 ambulatory [facility] Start: 03-30-2023 End: 03-30-2023 ambulatory [facility] Start: 03-30-2023 End: 03-30-2023 Office outpatient visit 15 minutes [facility] CROWN POUNCER-BUSINESS TEST ANALYST [facility] Comment on above: Chronic pain of both shoulders (Primary Dx); Peripheral vascular disease ([facility]); Stage 3b chronic kidney disease ([facility]); Smoker; Lumbosacral spondylosis without myelopathy Start: 03-28-2023 End: 03-28-2023 ambulatory Aziz Bakhous Other [employer] Other Start: 03-28-2023 Office outpatient vi sit 25 minutes Aziz Bakhous [facility] Start: 03-20-2023 Refill Carson cordero DO Work Phone: [facility] Start: 03-10-2023 End: 03-10-2023 ambulatory AG HERNÁNDEZ Not Available Start: 03-07-2023 End: 04-06-2023 ambulatory GOOD Martinez [facility] Start: 03-03-2023 Orders Only Good Dan CROWN POUNCER-BUSINESS TEST ANALYST [facility] Start: 03-02-2023 Refill Farnaz [facility] Comment on above: 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 Start: 02-20-2023 End: 03-06-2023 ambulatory GOOD Martinez [facility] Start: 10-11-2022 End: 10-11-2022 ambulatory Aziz Bakhous Other [employer] Other Start: 10-11-2022 Office outpatient vi sit 25 minutes Aziz Bakhous [facility] Start: 06-07-2022 End: 06-07-2022 ambulatory Aziz Bakhous Other [employer] Other Start: 06-07-2022 Patient encounter procedure Aziz Bakhous [facility] Start: 06-01-2022 End: 06-02-2022 ambulatory AZIZ BAKHOUS Facility:[facility] Start: 05-03-2022 End: 05-04-2022 ambulatory CRYSTALLOKESH LATASHAMICH Facility:[facility] Start: 04-26-2022 End: 04-26-2022 ambulatory Bri Jomich Other [facility] [employer] Other Start: 04-26-2022 Office outpatient ne w 30 minutes Bri Latashamich [facility] Start: 03-25-2022 End: 03-26-[address] CARSON SULLIVAN Facility:[facility] Start: 11-12-2021 End: 11-13-[address] CARSON SULLIVAN Facility:[facility] Start: 11-04-2021 End: 11-04-2021 ambulatory SABRINA MANUEL Facility:[facility] Start: 10-07-2021 End: 10-07-2021 ambulatory SABRINA MANUEL Facility:[facility] Procedures Date Procedure Procedure Detail Performing Clinician Start: 04-07-2023 CRYOTHERAPY SKIN LESION Ag FOSTER Work Phone: Start: 03-30-2023 Follow-up visit Follow-up GOOD DAN Start: 03-30-2023 Adult depression scr eening assessment Good Dan CROWN POUNCER-BUSINESS TEST ANALYST Work Phone: Start: 02-09-2023 Adult depression scr eening assessment Good [place] CROWN POUNCER-BUSINESS TEST ANALYST Work Phone: Plan of Treatment Date Care Activity Detail Author Start: 04-10-2024 DTaP,Tdap and Td Vac cines (2 - Td or Tdap) DTaP,Tdap and Td Vaccines (2 - Td or Tdap) [facility] Start: 03-30-2024 Adult BMI Screening Adult BMI Screen ing [facility] Start: 03-30-2024 Depression Screening Depression Scre ening [facility] Start: 03-30-2024 Fall Risk Screening Fall Risk Screen ing [facility] Start: 03-30-2024 Tobacco Screening Tobacco Screening [facility] Start: 02-10-2024 Adult BMI Screening Adult BMI Screen ing [facility] Start: 12-07-2024 Depression Screening Depression Scre ening [facility] Start: 02-10-2024 Fall Risk Screening Fall Risk Screen ing [facility] Start: 02-10-2024 Tobacco Screening Tobacco Screening [facility] Start: 08-17-2023 End: 08-17-2023 Patient encounter procedure 08/17/2023 11:40 AM EDT Office Visit [facility] [address] [place] [address] [facility] Start: 08-03-2023 Medicare Annual Well ness Visit Medicare Annual Wellness Visit [facility] Start: 07-19-2023 Administration of varicella zoster vaccine Zoster (Shingles) Vaccine (1 of 2) [facility] Comment on above: Postponed from 05/10 (Patient Refused) Start: 05-19-2023 End: 05-19-2023 Patient encounter procedure 05/19/2023 11:50 AM EDT Office Visit [facility] [address] [place] [address] Ag Hernández PA [address] [place], [place] [id number] [facility] Start: 04-07-2023 End: 04-07-2023 Patient encounter procedure 04/07/2023 10:20 AM EST Office Visit [facility] [address] [place] [address] Ag Hernández PA [address] [place] [address] Arrived [facility] Comment on above: Arrived Start: 03-30-2023 End: 03-30-2024 XR Shoulder - left 2 Views X-ray shoulder left minimum 2 views Imaging Routine Chronic pain of both shoulders Expected: 03/30/2023, Expires: 03/30/2024 [facility] Work Phone: Comment on above: Expected: 03/30/2023 , Expires: 03/30/2024 Start: 03-30-2023 End: 03-30-2024 XR Shoulder - right 2 Views X-ray shoulder right minimum 2 views Imaging Routine Chronic pain of both shoulders Expected: 03/30/2023, Expires: 03/30/2024 [facility] Comment on above: Expected: 03/30/2023 , Expires: 03/30/2024 Start: 03-07-2023 End: 03-07-2023 Patient encounter procedure 03/07/2023 2:00 PM EST Appointment [facility] [address] [place] [address] [facility] Start: 02-03-2023 Screening for malign ant neoplasm of colon Colon Cancer Screening 3 Year Cologuard [facility] Start: 05-10-1963 Adult BMI Follow Up Plan Adult BMI Follow Up Plan [facility] Start: 1945 Tobacco Counseling Tobacco Counselin g [facility] Immunizations Immunization Date Immunization Notes Care Provider Bonnie ramirez 02-09-2023 Influenza Vaccine, Quadrivalent, Adjuvanted Good Ni CROWN POUNCER-BUSINESS TEST ANALYST Work Phone: [facility] 12-04-2020 influenza, high dose seasonal, preservative-free Good Ni CROWN POUNCER-BUSINESS TEST ANALYST Work Phone: [facility] 11-25-2019 influenza, injectabl e, quadrivalent, preservative free Good Ni CROWN POUNCER-BUSINESS TEST ANALYST Work Phone: [facility] 05-18-2019 Seasonal trivalent influenza vaccine, adjuvanted, preservative free Good Ni CROWN POUNCER-BUSINESS TEST ANALYST Work Phone: [facility] 11-19-2018 Seasonal trivalent influenza vaccine, adjuvanted, preservative free Good Ni CROWN POUNCER-BUSINESS TEST ANALYST Work Phone: [facility] 11-20-2017 influenza, injectabl e, quadrivalent, contains preservative Good Ni CROWN POUNCER-BUSINESS TEST ANALYST Work Phone: [facility] 11-20-2017 Seasonal trivalent influenza vaccine, adjuvanted, preservative free Good Ni CROWN POUNCER-BUSINESS TEST ANALYST Work Phone: [facility] 11-25-2016 influenza, injectabl e, quadrivalent, preservative free Good Ni CROWN POUNCER-BUSINESS TEST ANALYST Work Phone: [facility] 11-25-2016 influenza, seasonal, injectable Good Ni CROWN POUNCER-BUSINESS TEST ANALYST Work Phone: [facility] 03-14-2016 pneumococcal polysaccharide vaccine, 23 valent Good Ni CROWN POUNCER-BUSINESS TEST ANALYST Work Phone: [facility] 12-10-2015 influenza, high dose seasonal, preservative-free Good Ni CROWN POUNCER-BUSINESS TEST ANALYST Work Phone: [facility] 03-10-2015 pneumococcal conjuga te vaccine, 13 valent Good Ni CROWN POUNCER-BUSINESS TEST ANALYST Work Phone: [facility] 12-08-2014 influenza, seasonal, injectable, preservative free Good Ni CROWN POUNCER-BUSINESS TEST ANALYST Work Phone: [facility] 04-10-2014 tetanus toxoid, redu savanna diphtheria toxoid, and acellular pertussis vaccine, adsorbed Good Ni CROWN POUNCER-BUSINESS TEST ANALYST Work Phone: [facility] 12-23-2013 influenza virus vacc ine, unspecified formulation Good Ni CROWN POUNCER-BUSINESS TEST ANALYST Work Phone: [facility] 01-28-2013 pneumococcal conjuga te vaccine, 13 valent Good Ni CROWN POUNCER-BUSINESS TEST ANALYST Work Phone: [facility] Payers Date Payer Category Payer Medicare [id number] 1957 Medicare [id number] 2.16. [id number] 1945 Unknown [id number] 2.16.84 [id number] 1945 Unknown [id number] 2.16.84 [id number] 1945 Unknown [id number] 2.16.84 [id number] 1945 Unknown [id number] 2.16.84 [id number] 1947 Unknown [id number] 2.16.84 [id number] 1947 Unknown [id number] 2.16.84 [id number] 1947 Unknown [id number] 2.16.8 [id number] 1947 Unknown [id number] 2.16.8 [id number] 1947 Unknown [id number] 2.16.84 [id number] 1947 Unknown [id number] 2.16.840 .[id number] 1947 Unknown [id number] 2.16.8 [id number] 1947 Unknown [id number] 2.16.84 [id number] Social History Date Type Detail Facility Start: 07-18-2022 End: 08-02-2022 Sex Assigned At [facility] Start: 11-16-2021 Tobacco smoking status DEIS Smokes tobacco daily [facility] History of tobacco use Cigarette Smoker P [facility] Start: 11-16-2021 End: 07-18-2022 Cigarettes smoked current (pack per day) - Reported 1 [facility] Start: 11-16-2021 Tobacco use and exposure Smokeless tobacco non-user [facility] Start: 02-09-2023 End: 03-30-2023 Alcohol intake Lifetime non-drinker (finding) [facility] Do you belong to any clubs or organizations such as buddhism groups, unions, fraternal or athletic groups, or school groups? No [facility] Are you now , , , , never or living with a partner? [facility] How often to you hav e a drink containing alcohol? Monthly or less [facility] How many standard dr inks containing alcohol do you have on a typical day? 1 or 2 [facility] How often do you hav e 6 or more drinks on 1 occasion? Never [facility] How hard is it for y ou to pay for the very basics like food, housing, medical care, and heating Not hard at all [facility] Do you feel stress - tense, restless, nervous, or anxious, or unable to sleep at night because your mind is troubled all the time - these days [OSQ] Only a little [facility] Start: 1945 Sex Assigned At Not on file [facility] Start: 03-10-2023 Tobacco smoking status [facility] Tobacco smoking consumption unknown [facility] Clinical Notes 10-07-2021 to 04-07-2023 KRISTIN Contreras - 04/07/2023 10:20 AM NIRANJAN Metzger - 03/30/2023 8:30 AM EST Note Date & Type Note Facility 04-07-2023 History of Presen t illness Narrative Images from the original note were not included. Follow up Diagnosis: AK Location: Nose Last visit: 03/10/2023 Symptoms: none Status: improved Procedure performed: Shave biopsy Date of procedure: 03/10/2023 Current treatment: Here today for LN2; pt would like to discuss Efudex instead All pertinent medical history, medications, and allergies were reviewed. General Exam: alert , oriented to person, place, and time , normal affect, well appearing Unaccompanied A focused exam completed based on patient reported problems, see below: 1. Actinic keratosis Dorsum of Nose Erythematous scaly papule with central ulceration (previous biopsy) Patient was counseled regarding these sun-induced growths that can develop into squamous cell carcinoma if left untreated. Discussed treatment with cryotherapy. It was emphasized that any treated lesions that fail to resolve should be re-evaluated. Cryotherapy performed today; see procedure note. Discussed this particular lesion is too thick for Efudex. Patient verbalized understanding. Follow up in 6 weeks. Diagnosis: Actinic keratosis Indication: Precancerous Location: see skin exam Consent: Verbal consent was obtained and risks were discussed, including, but not limited to risks of scarring, darker or city recorder pigmentary changes, recurrence, incomplete removal and infection. Method: Liquid nitrogen was used to treat the lesion(s) with two 5-10 second freeze-thaw cycles. Number of lesions treated: 1 Post-procedure instructions: Instructions were given orally and in writing. The office will be contacted if the lesion fails to resolve despite treatment, or if a side effect develops such as abnormal crusting, scabbing, redness or tenderness Cryotherapy, skin lesion - Dorsum of Nose Next Visit: 6 weeks documented in this encounter [facility] 03-30-2023 History of Presen t illness Narrative [address] [place] [address] Patient: Drea Tellez Date of : 1945 Encounter Date: 03/30/2023 History of Present Illness: The patient is a 77 y.o. female, an established patient, and is here for Chief Complaint Patient presents with Follow-up Follow up shoulders . HPI Patient is here for follow-up of her neck pain and shoulder pain. Her neck pain has resolved but she continues to have chronic bilateral shoulder pain. She had a left shoulder x-ray about 1 year ago she thinks but it is unfortunately not in the system. She was doing physical therapy for about 6 weeks but stopped because it was not improving her bilateral shoulder pain. She has loss of range of motion and the pain radiates from her shoulders to her elbows on both sides. 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 The pain has been going on for about 2 years or more but it has progressively worsened especially on the left side in the last 6 months. She has never received any injections in her shoulders that she can think of. She has no numbness or tingling in her arms. Problem List Items Addressed This Visit Cardiovascular and Mediastinum Peripheral vascular disease ([facility]) Genitourinary Stage 3b chronic kidney disease ([facility]) Other Visit Diagnoses Chronic pain of both shoulders - Primary Relevant Orders Ambulatory referral to Orthopedic Surgery ([facility]) X-ray shoulder left minimum 2 views X-ray shoulder right minimum 2 views Drug Screen, Urine (Completed) Smoker Past Medical, Family, and Social History Update: The following portions of the patient's history were reviewed and updated as appropriate: allergies, current medications, past family history, past medical history, past social history, past surgical history and problem list. Past Medical History: Diagnosis Date Anxiety Basal cell carcinoma of skin Carotid bruit Encounter for hepatitis C screening test for low risk patient 08/21/2015 neg Essential hypertension Femoral bruit Hiatal hernia Hyperglycemia Hyperlipidemia Hypokalemia Migraine Osteopenia Peripheral vascular disease ([facility]) Screen for colon cancer 02/04/2020 cologuard-negative Spinal stenosis of lumbar region Vitamin D deficiency Past Surgical History: Procedure Laterality Date APPENDECTOMY CATARACT EXTRACTION Left 10/07/2021 CATARACT EXTRACTION Right 11/04/2021 COLONOSCOPY 2000 HYSTERECTOMY LUMBAR DISC SURGERY 11/11/1996 LUMBAR LAMINECTOMY 02/14/2018 l4-l5 POSTERIOR LAMINECTOMY / DECOMPRESSION LUMBAR SPINE 09/02/2013 SKIN BIOPSY 03/10/2023 nose TONSILLECTOMY Current Outpatient Medications Medication Sig Dispense Refill amLODIPine (NORVASC) 10 mg tablet take 1 tablet by mouth once daily 90 tablet 5 ascorbic acid, vitamin C, (VITAMIN C) 1000 mg tablet as directed Orally aspirin (LORIE LOW DOSE ASPIRIN) 81 mg 1 tablet Orally Once a day for 30 day(s) fluticasone propionate (FLONASE) 50 mcg/actuation nasal spray Administer 1 spray into each nostril in the morning. 9.9 mL 1 fsh/flx/prim/cur/bor/om3,6,9 5 (OMEGA 3-6-9 FATTY ACIDS ORAL) as directed Orally HYDROcodone-acetaminophen (NORCO) 7.5-325 mg per tablet Take 1 tablet by mouth every 6 (six) hours as needed for pain. Max Daily Amount: 4 tablets 120 tablet 0 Lactobacillus acidophilus (PROBIOTIC) 10 billion cell capsule 1 capsule See Admin Instructions. levothyroxine (SYNTHROID, LEVOTHROID) 112 MCG tablet take 1 tablet by mouth every morning 90 tablet 3 lisinopriL (PRINIVIL,ZESTRIL) 40 mg tablet take 1 tablet by mouth once daily 90 tablet 3 lutein 10 mg tablet Take 1 tablet by mouth daily. metoprolol succinate XL (TOPROL XL) 25 mg 24 hr tablet take 1 tablet by mouth every morning 90 tablet 1 qj-xvq-axasl-calcium carb-K1 400 mcg-500 mg calcium-20 mcg tablet Take 1 tablet by mouth in the morning. 90 tablet 0 naloxone (NARCAN) 4 mg/actuation spray,non-aerosol nasal spray Administer 1 spray (4 mg total) into each nostril as needed. 1 spray Q2-3 minutes as needed omeprazole (PriLOSEC) 20 mg capsule TAKE 1 CAPSULE TWICE DAILY 180 capsule 1 polyethylene glycol (GLYCOLAX) 17 gram/dose powder Take 17 g by mouth in the morning. sertraline (ZOLOFT) 50 mg tablet take 1 tablet by mouth every morning 90 tablet 1 vitamin E 400 units capsule benzonatate (TESSALON PERLES) 100 mg capsule Take 1 capsule (100 mg total) by mouth 3 (three) times a day as needed for cough. (Patient not taking: Reported on 03/30/2023) 30 capsule 0 loratadine 10 mg capsule Take 1 tablet by mouth in the morning. niacin 1,000 mg tablet extended release 1 tablet with food Orally BID (Patient not taking: Reported on 02/09/2023) potassium chloride (KLOR-CON SPRINKLE) 10 MEQ CR capsule 2 capsules with food Orally Once a day (Patient not taking: Reported on 02/09/2023) No current facility-administered medications for this visit. (All medications reviewed and updated by provider since last office visit or hospitalization) Allergies: Sulfa (sulfonamide antibiotics), Hydrochlorothiazide, Qwspshs-idi-egr reductase inhibitors, and Nickel Tobacco History: Social History Tobacco Use Smoking Status Every Day Packs/day: 1.00 Years: 52.00 Additional pack years: 0.00 Total pack years: 52.00 Types: Cigarettes Smokeless Tobacco Never (If patient a smoker, smoking cessation counseling offered) Social History: Social History Substance and Sexual Activity Alcohol Use Never Review of Systems: Review of Systems Constitutional: Negative for fatigue and unexpected weight change. Respiratory: Positive for shortness of breath (No worse than her usual). Cardiovascular: Negative. Musculoskeletal: Positive for arthralgias and myalgias. Negative for gait problem, joint swelling, neck pain and neck stiffness. Neurological: Positive for weakness. Negative for numbness. Psychiatric/Behavioral: Negative. Physical Exam: BP 118/58 (BP Site: Left Arm, BP Postition: Sitting) Pulse 78 Temp 36.6 C (97.9 F) (Oral) Ht 160 cm (5' 3 ) Wt 63.1 kg (139 lb 3.2 oz) SpO2 100% BMI 24.66 kg/m Physical Exam Vitals reviewed. Constitutional: Appearance: Normal appearance. HENT: Head: Normocephalic and atraumatic. Cardiovascular: Rate and Rhythm: Normal rate and regular rhythm. Heart sounds: Normal heart sounds. Pulmonary: Breath sounds: Examination of the right-lower field reveals decreased breath sounds. Examination of the left-lower field reveals decreased breath sounds. Decreased breath sounds and rhonchi (MARLENY lower lobes) present. Musculoskeletal: General: No swelling. Right shoulder: Tenderness (anterior rotator cuff and supraspinatus tendon) and crepitus present. No swelling. Decreased range of motion (decreased abduction). Normal strength. Normal pulse. Left shoulder: Tenderness (anterior rotator cuff) present. No swelling. Decreased range of motion (decreased abduction). Normal strength. Normal pulse. Cervical back: No tenderness, bony tenderness or crepitus. Normal range of motion. Comments: Kyphosis Empty can sign neg MARLENY Skin: General: Skin is warm. Capillary Refill: Capillary refill takes less than 2 seconds. Neurological: General: No focal deficit present. Mental Status: She is alert and oriented to person, place, and time. Sensory: Sensation is intact. Motor: Motor function is intact. No weakness. Gait: Gait normal. Psychiatric: Mood and Affect: Mood normal. Behavior: Behavior normal. Thought Content: Thought content normal. Judgment: Judgment normal. Assessment and Plan: Drea was seen today for follow-up. Diagnoses and all orders for this visit: Chronic pain of both shoulders - Ambulatory referral to Orthopedic Surgery ([facility]); Future - X-ray shoulder left minimum 2 views; Future - X-ray shoulder right minimum 2 views; Future - Drug Screen, Urine; Future Peripheral vascular disease ([facility]) Stage 3b chronic kidney disease ([facility]) Smoker Follow-up: Will obtain new x-rays bilateral shoulders, order sent to the [facility]. Agree with stopping physical therapy if it is not making the pain any better. Patient would like a referral to Orthopedics in [place], this was placed in system. She should avoid NSAIDs due to her CKD and continue Tylenol and opioid pain management with topical agents as discussed at last appointment. Her PVD may improve if she stops smoking but she has not ready to do so at this time despite knowing negative health consequences. Further intervention for shoulder pain based on orthopedic recommendations. Follow-up in 3 months for routine opioid pain management appointment. The OARRS/MAPPS database was reviewed today and found to be appropriate. No indication of medication diversion, or non compliance. Urine drug screen to be completed in the next 48 hours. Patient has a pain contract on file.Pt is due for refill 2/3 - [facility] placed for this specific date. At next appt, consider lowering dose to lowest effective dose to help control pain. NIRANJAN HERRERA APRN-CNP 04/02/23 1244 documented in this encounter [facility] 03-28-2023 Evaluation note Encounter Date Diagnosis Assessment [...] WNL I asked the patient to continue fico-ycg-ukxttdo vitamin D supplement 1999Mar, Nephrolithiasis (ICD-10 - N20.0) Renal ultrasound shows nonobstructive bilateral renal calculi which are small in size. I asked the patient to continue ample water intake Fund Recs Other [id number] History of Present illness Narrative* NIRANJAN Herrera - 03/03/2023 1:29 PM EST The OARRS/MAPPS database was reviewed today and found to be appropriate. No indication of medication diversion, or non compliance. Pt is due for refill 03/11/22, last filled 02/08/[address] Sullivan who is out of town. NIRANJAN Herrera 03/03/23 1332 [facility] Miscellaneous Notes* Telephone Encounter - Farnaz Bennett CMA - 03/02/2023 2:51 PM EST Pt called and would like a refill on her NORCO. Pharmacy is listed and correct. * Telephone Encounter - NIRANJAN Herrera - 03/02/2023 2:51 PM EST Pt is due for refill 03/11 - I will send but pharmacy will not fill until this time documented in [facility] encounter[facility]23 Telephone encounter Note* Telephone Encounter - Farnaz Bennett CMA - 03/02/2023 2:51 PM EST Pt called and would like a refill on her NORCO. Pharmacy is listed and correct. [facility] [employer] [id number] Telephone encounter Note* Telephone Encounter - NIRANJAN Herrera - 03/02/2023 2:51 PM EST Pt is due for refill 03/11 - I will send but pharmacy will not fill until this time [facility] Evaluation note* Encounter Date Diagnosis Assessment Notes [...] WNL I asked the patient to continue wjgt-eqt-kaupdnd vitamin D supplement 1999Oct, Nephrolithiasis (ICD-10 - N20.0) Renal ultrasound shows nonobstructive bilateral renal calculi which are small in size. I asked the patient to continue ample water intake Fund Recs Other 04-04-2023 Evaluation note* Encounter Date Diagnosis [...] is low at 19. I patient with ojet-stw-vpldpjz vitamin D supplement 1999Jun, Nephrolithiasis (ICD-10 - N20.0) Renal ultrasound shows nonobstructive bilateral renal calculi which are small in size. I asked the patient to continue ample water intake Fund Recs Other 02-21-2023 Evaluation note* Encounter Date Diagnosis [...] at home and to follow low-salt diet [employer] Other 09-01-2022 NoteOPERATIVE NOTE OPERATION DATE: 11/04/2021 [...] ensuring mobility, phacoemulsification was performed in a uqemmvl-gsa-czjukx-type fashion. After all nuclear material had been [...] up the following day for postoperative care.[id number] NoteHISTORY AND PHYSICAL EXAMINATION Date:11/03/2021 HISTORY: Patient [...] decline other than that of cataract. 2. [id number] patient was briefed in the office and [...] and go forward with this elective procedure.[facility] [id number] NoteOPERATIVE NOTE OPERATION DATE: 10/07/2021 SURGEON: Sabrina [...] ensuring mobility, phacoemulsification was performed in a mdsobjz-obj-kwwvgu-type fashion. After all nuclear material had been [...] up the following day for postoperative care.[facility] 10-07-2021 NoteHISTORY AND PHYSICAL EXAMINATION Date:10/06/2021 HISTORY: [...] decline other than that of cataract. 2. [id number] patient was briefed in the office and [...] and go forward with this elective procedure.[facility]* Diagnosis Lumbosacral spondylosis without myelopathy [facility] Diagnosis Chronic pain of both shoulders- Primary Peripheral vascular disease ([facility]) Unspecified peripheral vascular disease Stage 3b chronic kidney disease ([facility]) Smoker Tobacco use disorder Lumbosacral spondylosis without myelopathy [facility] Diagnosis Actinic keratosis- Primary documented in this encounter [facility] HealthcareHistory general Narrative - Reported* Type Description Date [...] Dr. Shepherd 02/2018 Surgical History cataract surgery -11/2021 Hospitalization History See Sx Fund Recs Other History general Narrative - Reported* Type [...] Dr. Shepherd 02/2018 Surgical History cataract surgery -11/2021 Surgical History SKIN CANCER BIOPSY ON NOSE Hospitalization History See Sx Hx Fund Recs Other InstructionsNot on filedocumented in this encounter [facility] SystemInstructionsNot on filedocumented in this encounter [facility] SystemInstructionsNot on filedocumented in this encounter [facility] SystemInstructionsNot on filedocumented in this encounter [facility] SystemInstructions* Attachments The following attachments cannot be sent through Care Everywhere. * Shoulder Pain Discharge Instructions ([place]) documented in [facility] SystemReason for referral (narrative)* Consultation (Routine) - Pending Review Specialty Diagnoses / Procedures Referred By Darby mon Referred To Contact Orthopedic Surgery Diagnoses Chronic pain of both shoulders Good Dan APRN-CNP [address] [place] [id number] Rosales Hylton MD [address] [place] [address] Referral ID Status Reason Start Date Expiration Date Visits Requested Visits Authorized [id number] Pending Review Specialty Services Required 03/30/2023 03/29/2024 1 1 [facility] Summary Purpose Family History No Family History [...] CREATED AUTHOR AUTHOR'S ORGANIZ ATION 06/10/2022 [facility] DATE CREATED AUTHOR AUTHOR'S ORGANIZ ATION 04/02/2023 [facility] DATE CREATED AUTHOR AUTHOR'S ORGANIZ ATION 04/02/2023 [facility] DATE CREATED AUTHOR AUTHOR'S ORGANIZ ATION 04/08/2023 [facility] EPIC DATE CREATED AUTHOR AUTHOR'S ORGANIZ ATION 04/09/2023 [facility] REASON FOR VISIT (unrecogniz ed section and content) Reason Comments Med Refill Reason Comments Follow-up Follow up shoulders Reason Comments Follow-up Care Teams (unrecognized sec tion and content) [employer] Relationship Specialty Start Date End Date Carson Sullivan DO [address] [place] [address] PCP - General Family Medicine 02/14/17 [employer] Relationship Specialty Start Date End Date Carson Sullivan DO [address], [place] [address] PCP - General Family Medicine 02/14/17 [employer] Relationship Specialty Start Date End Date Carson Sullivan DO [address], [place] [address] PCP - General Family Medicine 02/14/17 Pl[employer] Relationship Specialty Start Date End Date Carson Sullivan DO [address], [place] [address] PCP - General Family Medicine 02/14/17 FOR [...] BE BASED ON THE PRIMARY CLINICAL RECORDS. [facility]. provides no warranty or guarantee of the accuracy or completeness of information in this document.
== END 2023-04-10 14:57 | disposition home or self-care (01) ==
LOC: RAD 15:01
PROVIDERS: PCP Family Medicine; Visit Provider Nurse Practitioner Family
DX: M25.511 Pain in right shoulder (principal); M25.512 Pain in left shoulder; G89.29 Other chronic pain; M19.012 Primary osteoarthritis, left shoulder; M19.011 Primary osteoarthritis, right shoulder
CPT/HCPCS: 73030

== ENCOUNTER 2023-10-16 13:10 | Outpatient (OUT) | payer MEDICARE, SELFPAY ==
--- OUTSIDE RECORDS SUMMARY | 2023-10-16 13:25 | XMS_ITS | CCD ---
Author Organization [facility] Care Team Providers Care Consulting Marine Engineer Name Role Phone Bri Davis Unavailable NEAL, DR CARSON Luciano Admitting Unavailable FURLONG, DR CARSON Luciano Attending Unavailable FURLONG, DR CARSON Luciano Consulting Unavailable FURLONG, DR CARSON Luciano Primary Care Unavailable BRI DAVIS Admitting Unavailable JOBY POLO Consulting Unavailable FURLONG, DR CARSON Luciano Primary Care Unavailable BRI DAVIS Attending Unavailable BRI DAVIS Consulting Unavailable BRI DAVIS Consulting Unavailable MISC, DR BANKS Admitting Unavailable FURLONG, DR CARSON Luciano Primary Care Unavailable MISC, DR BANKS Attending Unavailable SABRINA MANUEL Attending Unavailable SABRINA MANUEL Admitting Unavailable SABRINA MANUEL Consulting Unavailable FURLONG, DR CARSON Luciano Primary Care Unavailable SABRINA MANUEL Admitting Unavailable SABRINA MANUEL Attending Unavailable FURLONG, DR CARSON Luciano Consulting Unavailable FURLONG, DR CARSON Luciano Primary Care Unavailable SABRINA MANUEL Consulting Unavailable JELANILONG, DR CARSON Luciano Admitting Unavailable FURLONG, DR CARSON Luciano Attending Unavailable FURLONG, DR CARSON Luciano Consulting Unavailable FURLONG, DR CARSON Luciano Primary Care Unavailable Furlong Carson LEIVA Primary Care Provider [phone] Unavailable Primary Care Provider UnavailLIAN Almonte Referring Unavailable CARSON SULLIVAN Primary Care Unavailable LIAN DAN Referring Unavailable CARSON SULLIVAN Primary Care Unavailable Aden Baca Admitting Unavailable Aden Baca Attending Unavailable Carson Sullivan Care Unavailable CARSON SULLIVAN Referring Unavailable CARSON SULLIVAN Primary Care Unavailable NI, LIAN L Referring Unavailable FURLONG, CARSON G Primary Care Unavailable YULIA HERNÁNDEZ Attending Unavailable EDGAR, YULIA L Attending Unavailable EDGAR, YULIA L Attending Unavailable EDGAR, YULIA L Attending Unavailable FURLONG, CARSON G Attending Unavailable FURLONG, CARSON G Referring Unavailable FURLONG, CARSON G Primary Care Unavailable FURLONG, CARSON G Attending Unavailable FURLONG, CARSON G Referring Unavailable FURLONG, CARSON G Primary Care Unavailable FURLONG, CARSON G Referring Unavailable FURLONG, CARSON G Primary Care Unavailable NIGUILLERMINALIAN L Attending Unavailable FURLONG, CARSON G Referring Unavailable FURLONG, CARSON G Primary Care Unavailable NI, LIAN L Attending Unavailable FURLONG, CARSON G Referring Unavailable FURLONG, CARSON G Primary Care Unavailable Allergies Allergy Classification Reported Allergen(s) Allergy Type Date of Onset Reaction(s) Facility (17 sources) hydroCHLOROthiazide; Translations: [HYDROCHLOROTHIAZIDE] Drug Allergy Itching [facility] (1 source) Sulfonamides (Antibiotic) Drug allergy (disorder) [facility] (13 sources) HMG-CoA reductase inhibitor; Translations: [AQRIIVY-TOH-HVV REDUCTASE INHIBITORS] Propensity to adverse reactions to drug pain [facility] (13 sources) nickel; Translations: [NICKEL] Drug Allergy Rash [facility] (16 sources) Sulfonamides (Antibiotic); Translations: [SULFA (SULFONAMIDE ANTIBIOTICS)] Propensity to adverse reactions to drug Photosensitivity [facility] (3 sources) HMG-CoA reductase inhibitor Drug Allergy [facility] (3 sources) hydroCHLOROthiazide Drug Allergy Itching [facility] (3 sources) nickel sulfate Drug Allergy Rash [facility] (1 source) hydroCHLOROthiazide Drug Allergy 024 [facility] Repository Medications Current Medications Medication Drug Class(es) Dates Sig (Normalized) Sig (Original) acetaminophen 325 mg / HYDROcodone bitartrate 7.5 mg oral tablet (17 sources) Opioid Agonist Start: 06-03-2023 HYDROcodone-acetami nophen (NORCO) 7.5-325 mg per tablet Indications: Lumbosacral spondylosis without myelopathy Take 1 tablet by mouth every 6 (six) hours as needed for pain. Max Daily Amount: 4 tablets 120 tablet 0 06/03/2023 Active Start: 04-08-2023 End: 05-29-2023 HYDROcodone-acetaminophen (N ORCO) 7.5-325 mg per tablet Indications: Lumbosacral spondylosis without myelopathy Take 1 tablet by mouth every 6 (six) hours as needed for pain. Max Daily Amount: 4 tablets 120 tablet 0 05/02/2023 05/29/2023 Discontinued (Reorder) Start: 04-08-2023 HYDROcodone-ac etaminophen (NORCO) 7.5-325 mg per tablet [...] hrs Active amLODIPine 10 mg oral tablet (17 sources) Dihydropyridine Calcium Channel Akhil Start: 2022 take 1 tablet by mouth once daily amLODIPine (NORVASC) 10 mg tablet take 1 tablet by mouth once daily 90 tablet 5 12/21/2022 Active ascorbic acid 1000 mg oral tablet (15 sources) Vitamin C ascorbic acid, v itamin C, (VITAMIN C) 1000 mg tablet as directed Orally 0 Active Bioflavonoid Pro ducts (Vitamin C) chewable tablet as directed Orally 0 Active Vitamin C - as d irected Orally Active aspirin 81 mg delayed release oral tablet (17 sources) Platelet Aggregation Inhibitor, Nonsteroidal Anti-inflammatory Drug take 1 tablet by mouth once daily aspirin (LORIE LOW DOSE ASPIRIN) 81 mg 1 tablet Orally Once a day for 30 day(s) 0 Active take 1 tablet by nabeel th every twenty-four hours Aspirin 81 MG 1 tablet Orally Once a day for 30 day(s) Active B Zrsgoim-Cwrvke-DI (Super B-Complex) tablet (3 sources) B Complex-Biotin -FA (Super B-Complex) tablet as directed Orally 0 Active benzonatate 100 mg oral capsule (13 sources) Non-narcotic Antitussive Start: 023 take 1 capsule by mouth three times daily as needed for cough benzonatate (TESSALON PERLES) 100 mg capsule Take 1 capsule (100 mg total) by mouth 3 (three) times a day as needed for cough. 30 capsule 0 10/20/2022 Active take 1 capsule by mo [facility] three times daily as needed Benzonatate 200 [...] Once a day for 30 day(s) Not-Taking ivjcxpz-njicuxxqh-plih 333-133-5 MG per tablet (3 sources) calcium-magnesiu m-zinc 333-133-5 MG per tablet every 8 (eight) hours 0 Active Centrum Silver - (1 source) Centrum Silver - as directed Orally Active cholecalciferol 0.05 mg oral capsule (2 sources) Vitamin D take 1 capsule by mouth every twenty-four hours Vitamin D3 50 MCG (1999 UT) 1 capsule Orally Once a day [...] propionate 0.05 mg/actuat metered dose nasal spray (13 sources) Corticosteroid Start : 10-19 take 1 spray(s) nasal route in the morning fluticasone propionate (FLONASE) 50 mcg/actuation nasal spray Administer 1 spray into each nostril in the morning. 9.9 mL 1 10/19/2022 Active Start: 10-19-2022 take 1 spray(s) nasa l route in the morning fluticasone (Flonase) 50 MCG/ACT nasal spray Administer 1 spray into affected nostril(s) in the morning. 0 10/19/2022 Active fsh/flx/prim/cur/bor/om3,6,9 5 (OMEGA 3-6-9 FATTY ACIDS ORAL) (10 sources) fsh/flx/prim/cur /bor/om3,6,9 5 (OMEGA 3-6-9 FATTY ACIDS ORAL) as directed Orally 0 Active Iron (1 source) take 1 tablet by mouth once daily Iron 28 MG 1 tablet Orally Once a day for 30 day(s) Active lactobacillus acidophilus [id number] unt oral capsule (10 sources) Lactobacillus ac idophilus (PROBIOTIC) 10 billion cell capsule 1 capsule See Admin Instructions. 0 Active levothyroxine sodium 0.112 m g oral tablet (17 sources) l-Thy roxin e Star t: 08-23 take 1 tablet by mouth once daily [...] day(s) Active lisinopril 40 mg oral tablet (17 sources) Angiotensin Converting Enzyme Inhibitor Start: 09-29-2022 take 1 tablet by mouth once daily lisinopriL (PRINIVIL,ZESTRIL) 40 mg tablet take 1 tablet by mouth once daily 90 tablet 3 09/29/2022 Active loratadine 10 mg oral capsule (17 sources) take 1 tablet by mouth in the morning loratadine 10 mg capsule Take 1 tablet by mouth in the morning. 0 Active End: 03-30-2023 loratadine (Claritin) 10 MG tablet 1 (one) time each day at the same time 0 Active LORazepam 1 mg oral tablet (2 sources) Benzodiazepine take 1 tablet by nabeel th every twenty-four hours LORazepam 1 MG 1 tablet at bedtime as needed Orally Once a day Active lutein 10 mg oral tablet (14 sources) take 1 tablet by nabeel th every twenty-four hours lutein 10 mg tablet Take 1 tablet by mouth daily. 0 Active take 1 capsule by mo sch every twenty-four hours Lutein 6 MG 1 capsule with a meal Orally Once a day for 30 day(s) Not-Taking/PRN 24 hr metoprolol succinate 25 mg extended release oral tablet (18 sources) beta-Adrenergic Akhil Start: 10-28-2022 End: 04-17-2023 take 1 tablet by mouth once daily in the morning metoprolol succinate XL (TOPROL XL) 25 mg 24 hr tablet Indications: Essential hypertension take 1 tablet by mouth every morning 90 tablet 1 04/17/2023 Active Start: 10-28-2022 take 1 tablet by nabeel th every twenty-four hours in the morning metoprolol succinate XL (Toprol-XL) 25 MG 24 hr tablet Take 1 tablet by mouth in the morning. 0 10/28/2022 Active Multiple Vitamins-Minerals (Womens 50+ Multi Vitamin) tablet (3 sources) Start: 05-02-2022 take 1 tablet by mouth in the morning Multiple Vitamins-Minerals (Womens 50+ Multi Vitamin) tablet Take 1 tablet by mouth in the morning. 0 05/02/2022 Active pd-txe-brvmj-calcium carb-K1 400 mcg-500 mg calcium-20 mcg tablet (10 sources) Start: 05-02-2022 take 1 tablet by mouth once in the morning vu-lvq-ltkft-calcium carb-K1 400 mcg-500 mg calcium-20 mcg tablet Take 1 tablet by mouth in the morning. 90 tablet 0 05/02/2022 Active naloxone hydrochloride 40 mg/ml nasal spray (10 sources) Opioid Antagonist naloxone (NARCAN) 4 mg/actuation spray,non-aerosol nasal spray Administer 1 spray (4 mg total) into each nostril as needed. 1 spray Q2-3 minutes as needed 0 Active 24 hr niacin 1000 mg extended release oral tablet (14 sources) Nicotinic Acid take 1 tablet by mouth twice daily at mealtime niacin 1,000 mg tablet extended release 1 tablet with food Orally BID 0 Active take 1 tablet by nabeel th every twenty-four hours Niacin ER 1000 MG 1 tablet with food Orally Once a day for 30 day(s) Not-Taking 24 hr nicotine 0.875 mg/hr transdermal system (4 sources) Cholinergic Nicotinic Agonist Start: 04-28-2023 apply 1 dose transdermal route once daily nicotine (NICODERM CQ) 21 mg/[address] 1 patch on the skin daily. 30 patch 1 04/28/2023 Active [place] 3 1000 MG (4 sources) take 1 capsule by mouth once daily [place] 3 1000 MG 1 capsule Orally Once a day for 30 day(s) Active omeprazole 20 mg delayed release oral capsule (18 sources) Proton Pump Inhibitor Start: 10-17-2022 End: [...] 170 00 mg powder for oral solution (10 sources) Osmotic Laxative polyethylene gl ycol (GLYCOLAX) [...] chloride 10 meq extended release oral capsule (10 sources) potassium chlori de (KLOR-CON SPRINKLE) 10 MEQ CR capsule 2 capsules with food Orally Once a day 0 Active predniSONE 20 mg oral tablet (2 sources) Start: 04-28-2023 End: 05-05-2023 take 1 tablet by mouth in the morning, then take 1 tablet by mouth at bedtime predniSONE (DELTASONE) 20 mg tablet Take 1 tablet (20 mg total) by mouth in the morning and 1 tablet (20 mg total) before bedtime. Do all this for 7 days. 14 tablet 0 04/28/2023 05/05/2023 Active saccharomyces boulardii 250 mg oral capsule (4 sources) take 1 capsule by mouth every twenty-four hours Probiotic 250 MG 1 capsule Orally once a day for 30 days Active take 1 capsule by mo ut every twelve hours Probiotic 250 MG 1 capsule Orally Twice a day for 30 day(s) Active sertraline 50 mg oral tablet (16 sources) Serotonin Reuptake Inhibitor Start: 11-08-2022 End: 05-01-2023 take 1 tablet by mouth once daily in the morning sertraline (ZOLOFT) 50 mg tablet take 1 tablet by mouth every morning 90 tablet 1 05/01/2023 Active Super B-Complex - (4 sources) Super B-Complex - as directed Orally Active Super B-Complex - as directed Orally Not-Taking vitamin e 268 mg oral capsul e (13 sources) vitamin E 400 un its capsule alpha tocopherol (Vitamin E) 400 units capsule 1 capsule 1 (one) time each day at the same time 0 Active take 1 tablet by mouth once [...] Date Documented Da te Episodic/Chronic Anxiety disorders (11 sources) Anxiety; Translations: [Anxiety disorder, unspecified] Onset: 11-16-2021 11-16-2021 Chronic Asthma (10 sources) Reactive airway disease; Translations: [Unspecified asthma, uncomplicated] Onset: 11-16-2021 11-16-2021 Chronic Calculus of urinary tract (7 sources) Kidney stone; Translations: [Calculus of kidney] Onset: 05-08-2022 Episodic Cataract (8 sources) Age-related nuclear cataract, right eye; Translations: [Age-related nuclear cataract, left eye] Onset: 10-07-2021 Chronic Chronic kidney disease (20 sources) Chronic kidney disease stage 4; Translations: [Chronic kidney disease, stage 4 (severe)] Onset: 06-08-2022 Chronic Chronic kidney disease (5 sources) Chronic kidney disease; Translations: [Chronic kidney disease, stage 3a] Onset: 10-19-2022 Deficiency and other anemia (3 sources) Anemia, unspecified Episodic Disorders of lipid metabolism (15 sources) Hyperlipidemia, unspecified; Translations: [Pure hypercholesterolemia , unspecified] Onset: 10-11-2021 Chronic Esophageal disorders (11 sources) Gastro-esophageal reflux disease without esophagitis; Translations: [Gastroesophageal reflux disease] Onset: 10-11-2021 11-16-2021 Chronic Essential hypertension (13 sources) Essential (primary) hypertension; Translations: [Essential hypertension] Onset: 05-03-2021 11-16-2021 Chronic Headache; including migraine (10 sources) Migraine; Translations: [Migraine, unspecified, not intractable, without status migrainosus] Onset: 11-16-2021 11-16-2021 Chronic Hypertension with complications and secondary hypertension (20 sources) Hypertensive renal disease; Translations: [Hypertensive chronic kidney disease with stage 1 through stage 4 chronic kidney disease, or unspecified chronic kidney disease] Onset: 03-31-2022 Resolved: 10-19-2022 Chronic Nutritional deficiencies (16 sources) Vitamin D deficiency; Translations: [Vitamin D deficiency, unspecified] Onset: 11-16-2021 Chronic Osteoarthritis (2 sources) Primary osteoarthritis, right shoulder; Translations: [Primary osteoarthritis, left shoulder] Onset: 09-26-2023 Chronic Other diseases of kidney and ureters [...] [Pain in right shoulder] 03-30-2023 Episodic Other screening for suspected conditions (not mental disorders or infectious disease) (1 source) Patient encounter status; Translations: [Encounter for screening for malignant neoplasm of colon] 06-03-2023 Episodic Other skin disorders (2 sources) Actinic keratosis; Translations: [Actinic keratosis] 04-07-2023 Episodic Other upper respiratory disease (10 sources) Allergic rhinitis; Translations: [Allergic rhinitis, unspecified] Onset: 09-21-2020 11-16-2021 Chronic Peripheral and visceral atherosclerosis (12 sources) Peripheral vascular disease; Translations: [Peripheral vascular disease, unspecified] Onset: 02-01-2021 11-16-2021 Chronic Spondylosis; intervertebral disc disorders; other back problems (20 sources) Degeneration of intervertebral disc; Translations: [Degeneration of intervertebral disc] Onset: 11-16-2021 11-16-2021 Chronic Substance-related disorders (13 sources) Nicotine dependence, cigarettes, uncomplicated; Translations: [Tobacco dependence syndrome] Onset: 10-11-2021 11-16-2021 Chronic Thyroid disorders (14 sources) Hypothyroidism, unspecified; Translations: [Hypothyroidism] Onset: 11-16-2021 11-16-2021 Chronic Unclassified (1 source) Primary osteoarthritis, left shoulder; Translations: [Primary osteoarthritis, left shoulder] Onset: 2023 Unclassified (1 source) controlled sub Onset: 09-26-2023 Past or Other Problems Problem Classification Problem Date Documented Da te Episodic/Chronic Abdominal hernia (10 sources) Hiatal hernia; Translations: [Diaphragmatic hernia without obstruction or gangrene] Onset: 11-16-2021 11-16-2021 Episodic Complications of surgical procedures or medical care (10 sources) Complication of surgical procedure; Translations: [Unspecified complication of procedure, initial encounter] Onset: 10-26-2018 11-16-2021 Episodic Diabetes mellitus without complication (10 sources) Hyperglycemia; Translations: [Hyperglycemia, unspecified] Onset: 06-20-2016 11-16-2021 Episodic Fluid and electrolyte disorders (10 sources) Hypokalemia; Translations: [Hypokalemia] Onset: 11-16-2021 11-16-2021 Episodic Mood disorders (10 sources) Mood disorders Onset: 02-09-2023 Resolved: 04-28-2023 02-09-2023 Other bone disease and musculoskeletal deformities (10 sources) Osteopenia; Translations: [Other specified disorders of bone density and structure, unspecified site] Onset: 11-16-2021 11-16-2021 Episodic Other circulatory disease (10 sources) Femoral bruit; Translations: [Other specified symptoms and signs involving the circulatory and respiratory systems] Onset: 11-16-2021 11-16-2021 Episodic Other connective tissue disease (1 source) Myalgia, unspecified site; Translations: [MYALGIA UNSPECIFIED SITE] Onset: 11-19-2021 Episodic Other connective tissue disease (10 sources) Acquired trigger finger; Translations: [Trigger finger, unspecified finger] Onset: 11-16-2021 11-16-2021 Episodic Other connective tissue disease (10 sources) Fibromyalgia; Translations: [Fibromyalgia] Onset: 11-16-2021 11-16-2021 Episodic Other connective tissue disease (1 source) Fibromyalgia; Translations: [Fibromyalgia] Onset: 11-16-2021 Episodic Other non-epithelial cancer of skin (10 sources) Basal cell carcinoma of skin; Translations: [Basal cell carcinoma of skin, unspecified] Onset: 11-16-2021 11-16-2021 Episodic Other non-traumatic joint disorders (2 sources) Pain in right shoulder; Translations: [Pain in right shoulder] Onset: 03-30-2023 Episodic Other non-traumatic joint disorders (2 sources) Pain in left shoulder; Translations: [Pain in left shoulder] Onset: 03-30-2023 Episodic Other non-traumatic joint disorders (1 source) Shoulder pain Onset: 04-28-2023 Episodic Other nutritional; endocrine; and metabolic disorders (10 sources) Overweight; Translations: [Overweight] Onset: 06-15-2016 Resolved: 07-18-2022 07-18-2022 Episodic Residual codes; unclassified (1 source) Acquired absence of both cervix and uterus; Translations: [ACQUIRED ABSENCE BOTH CERVIX AND UTERUS] Onset: 10-11-2021 Episodic Residual codes; unclassified (1 source) Sleep disorder, unspecified; Translations: [Sleep disorder, unspecified] Onset: 06-28-2023 Episodic Spondylosis; intervertebral disc disorders; other back problems (11 sources) Spinal stenosis of lumbar region; Translations: [Spinal stenosis, lumbar region without neurogenic claudication] Onset: 09-14-2017 11-16-2021 Episodic Results Test Name Value Interpretation Reference Range Facility BASIC METABOLIC PANLon 06-27 Anion gap [Moles/Vol] 13 mmol/L Normal 5-15 [facility] Comment on above: Performed By: #### B ROBERTO, THYR #### [facility] ([id number]) [address], [address] [place] [address] Calcium [Mass/Vol] 9.9 mg/dL Normal 8.5-10.5 [facility] Comment on above: Performed By: #### B ROBERTO, THYR #### [facility] ([id number]) [address] [place] [address] Chloride [Moles/Vol] 100 mmol/L Normal 98-109 [facility] Comment on above: Performed By: #### B ROBERTO, THYR #### [facility] ([id number]) [address], [address] [place] [address] CO2 [Moles/Vol] 23 mmol/L Normal 22-32 [facility] Comment on above: Performed By: #### B ROBERTO, THYR #### [facility] ([id number]) [address], [address] [place] [address] Creatinine [Mass/Vol] 1.20 mg/dL High 0.40-1.00 [facility] Comment on above: Result Comment: METH OD TRACEABLE TO IDMS STANDARD Performed By: #### B ROBERTO, THYR #### [facility] ([id number]) [address], [address] [place] [address] GFR/1.73 sq M.predicted rosa m g non-blacks MDRD (S/P/Bld) [Vol rate/Area] 47 mL/min/{1.73_m2} Low >59 [facility] Comment on above: Result Comment: Reported eGFR is based on the CKD-EPI 2020 equation that does not use a race coefficient. Performed By: #### B ROBERTO, THYR #### [facility] ([id number]) [address], [address] [place] [address] Glucose [Mass/Vol] 86 mg/dL Normal 65-99 [facility] Comment on above: Performed By: #### B ROBERTO, THYR #### [facility] ([id number]) [address] [place] [address] Potassium [Moles/Vol] 4.3 mmol/L Normal 3.5-5.0 [facility] Comment on above: Performed By: #### B ROBERTO, THYR #### [facility] ([id number]) [address] [place] [address] Sodium [Moles/Vol] 136 mmol/L Normal 134-146 [facility] Comment on above: Performed By: #### B MP, THYR #### [facility] ([id number]) [address], [facility] [address] [place] [address] Urea nitrogen [Mass/Vol] 26 mg/dL Normal 5-27 [facility] Comment on above: Performed By: #### B MP, THYR #### [facility] ([id number]) [address], [facility] [address] [place] [address] THYROID PROFILEon 06-28-2023 Free T4 [Mass/Vol] 1.14 ng/dL Normal 0.61-1.60 [facility] Comment on above: Performed By: #### B MP, THYR #### [facility] ([id number]) [address], [facility] [address] [place] [address] TSH 0.81 uIU/mL Normal 0.49-4.67 [facility] Comment on above: Performed By: #### B MP, THYR #### [facility] ([id number]) [address], [address] [address] XR shoulder LT min 2V*on XR shoulder LT min 2V* [facility] [place] [address] XRay Report Signed Patient: Mike Coon MR#: [id number] : 1945 Acct:[id number] Age/Sex: 78 / F ADM Date: 05/11/23 Loc: [facility] Room: Type: [facility] Attending Dr: Aden Baca DO Copies to: Aden Baca DO Ordering Provider: Aden Baca DO Date of Service: 05/11/23 XR/XR shoulder LT min 2V*: M19.012 - Primary osteoarthritis, left shoulder 4 views LEFT shoulder plain film HISTORY: LEFT shoulder pain for years. COMPARISON: 04/10/23 ACUTE FINDINGS: None DEGENERATIVE CHANGE: Continued extensive glenohumeral degeneration with marked joint space narrowing and some reticular sclerotic and cystic changes of the humeral head and glenoid. Moderate common clavicular degenerative change. SOFT TISSUE FINDINGS: Unremarkable JOINT EFFUSION: None POSTOP CHANGES: None BONY MINERALIZATION: Adequate XR/XR shoulder LT min 2V* IMPRESSION: Continued extensive glenohumeral degeneration. Impression dictated by: Justin Lucas M.D.05/11/2023 2:24 PM Dictation Location: [place] [address] Transcribed By: [facility] 05/11/23 142 Dictated By: Justin Lucas DO 05/11/23 142 Signed By: 05/11/23 1424 [facility] No Panel Informationon 04-07 [facility] DRUG SCREEN, URINEon 024 AMPHETAMINE/METHAMP Negative Normal NEG [facility] Comment on above: Result Comment: AMPH /METH screening cut off = 1000 ng/mL Performed By: #### D HOLT #### [facility] ([id number]) [address], [address] [place] [address] BARBITURATES Negative Normal NEG [facility] Comment on above: Result Comment: Rhonda iturates screening cut off value = 200 ng/mL Performed By: #### D HOLT #### [facility] ([id number]) [address], [address] [place] [address] BENZODIAZEPINES Negative Normal [facility] Comment on above: Result Comment: Guillermo odiazepines screening cut off value = 200 ng/mL Performed By: #### D HOLT #### [facility] ([id number]) [address], [address] [place] [address] CANNABINOIDS Negative Normal NEG [facility] Comment on above: Result Comment: Shanita abinoids/THC screening cut off value = 50 ng/mL Performed By: #### D HOLT #### [facility] ([id number]) [address], [address] [place] [address] COCAINE METABOLITE Negative Normal NEG [facility] Comment on above: Result Comment: Coca ine screening cut off value = 300 ng/mL Performed By: #### D HOLT #### [facility] ([id number]) [address] [place] [address] ECSTASY Negative Normal NEG [facility] [facility] Comment on above: Result Comment: Ecst asy screening cut off value = 500 ng/mL This report is intended for use in clinical monitoring or management of patients. Performed By: #### D HOLT #### [facility] ([id number]) [address] [place] [address] METHADONE Negative Normal NEG [facility] Comment on above: Result Comment: Meth adone screening cut off value = 300 ng/mL. Performed By: #### D HOLT #### [facility] ([id number]) [address] [place] [address] OPIATES Positive Abnormal NEG [facility] Comment on above: Result Comment: Conf irmation available upon request. Opiates screening cut off value = 300 ng/mL NOTE: This test is used for the detection of codeine, hydrocodone (>1000 ng/mL), morphine and hydromorphone (>900 ng/mL) in urine. Performed By: #### D HOLT #### [facility] ([id number]) [address] [place] [address] OXYCODONE Negative Normal NEG [facility] Comment on above: Result Comment: Oxyc odone screening cut off value = 300 ng/mL NOTE: This test is used for the detection of oxycodone and oxymorphone in urine. Performed By: #### D HOLT #### [facility] ([id number]) [address], [address] [place] [address] PHENCYCLIDINE Negative Normal [facility] Comment on above: Result Comment: Phen cyclidine screening cut off value = 25 ng/mL Performed By: #### D HOLT #### [facility] ([id number]) 0 [facility], [address] [place] [address] Drug Screen, Urineon 024 Amphetamines Screen method >1000 ng/mL Ql (U) Negative Negative^N [facility] Comment on above: AMPH/METH screening cut off = 1000 ng/mL Barbiturates Screen Ql (U) Negative N egative^N [facility] Comment on above: Barbiturates screeni ng cut off value = 200 ng/mL Benzodiazepines Ql (U) Negative Negat iggy^N [facility] Comment on above: Benzodiazepines scre ening cut off value = 200 ng/mL Cocaine Ql (U) Negative Negative^N [facility] Comment on above: Cocaine screening cu t off value = 300 ng/mL Interpretation and review of laboratory results Abnormal [facility] Methadone Screen Ql (U) Negative Nega tive^N [facility] Comment on above: Methadone screening cut off value = 300 ng/mL. Methylenedioxymethamphetamin e Screen Ql (U) Negative Negative^N [facility] Comment on above: Ecstasy screening cu t off value = 500 ng/mL This report is intended for use in clinical monitoring or management of patients. Opiates Screen Ql (U) Positive Abnormal Negati ve^N [facility] Comment on above: Confirmation availab le upon request. Opiates screening cut off value = 300 ng/mL NOTE: This test is used for the detection of codeine, hydrocodone (>1000 ng/mL), morphine and hydromorphone (>900 ng/mL) in urine. oxyCODONE Ql (U) Negative Negative^N [facility] Comment on above: Oxycodone screening cut off value = 300 ng/mL NOTE: This test is used for the detection of oxycodone and oxymorphone in urine. Phencyclidine Screen method >25 ng/mL Ql (U) Negative Negative^N [facility] Comment on above: Phencyclidine screen ing cut off value = 25 ng/mL Tetrahydrocannabinol Screen method >50 ng/mL Ql (U) Negative Negative^N [facility] Comment on above: Cannabinoids/THC scr eening cut off value = 50 ng/mL [facility] PTH INTACTon 06-02-2022 PTH, Intact 14 pg/mL Critically low 15-65 [facility] Comment on above: Performed By: #### P THINT ####[facility] [address] [place], [place] [address]Dr. Neelamandrew Leo HEMOGRAM AND PLATELon 2022 Hematocrit (Bld) [Volume fraction] 32.0 % Critically low 36.0-48.0 [facility] Comment on above: Performed By: #### H H ####[facility] [address] [place] [address]Dr. Ashok Bailey Hemoglobin (Bld) [Mass/Vol] 10.6 g/dL Critically low 12.0 -16.0 [facility] Comment on above: Performed By: #### H H ####[facility] [address] [place], [place] [address]Dr. Ashok Bailey MCH (RBC) [Entitic mass] 31.4 pg Normal 26.7-34.0 [facility] Comment on above: Performed By: #### H H ####[facility] [address] [place], [place] [address]Dr. Ashok Bailey MCHC (RBC) [Mass/Vol] 33.1 g/dL Normal 29.9-35.2 [facility] Comment on above: Performed By: #### H H ####[facility] [address] [place], [place] [address]Dr. Ashok Bailey MCV (RBC) [Entitic vol] 94.7 fL Normal 81.0-99.0 [facility] Comment on above: Performed By: #### H H ####[facility] [address] [place] [address]Dr. Ashok Bailey PLT 345 103/ul Normal 150-450 [facility] Comment on above: Performed By: #### H H ####[facility] [address] [place] [address]Dr. Ashok Bailey RBC 3.38 106/ul Critically low 4.20-5.40 [facility] Comment on above: Performed By: #### H H ####[facility] [address] [place] [address]Dr. Ashok Leo WBC 8.4 103/ul Normal 4.0-11.0 [facility] Comment on above: Performed By: #### H H ####[facility] [address] [place] [address]Dr. Neelamandrew Bailey MAGNESIUMon 06-01-2022 Magnesium [Mass/Vol] 1.8 mg/dL Normal 1.8-2.4 [facility] Comment on above: Performed By: #### C MP, URIC, MG, PHOS ####[facility] [address] [place] [address]Dr. Neelamandrew Bailey PHOSPHORUSon 06-01-2022 Phosphate [Mass/Vol] 4.0 mg/dL Normal 2.6-4.7 [facility] Comment on above: Performed By: #### C MP, URIC, MG, PHOS ####[facility] [address]sp[address] [place] [address]Dr. Ashok Bailey PROF 14(COMP METB)on 023 Albumin [Mass/Vol] 3.8 g/dL Normal 3.4-5.0 [facility] Comment on above: Performed By: #### C MP, URIC, MG, PHOS ####[facility] [address] [place] [address]Dr. Ashok Bailey Albumin/Globulin [Mass ratio] 1.1 {ratio} Normal [facility] Comment on above: Performed By: #### C MP, URIC, MG, PHOS ####[facility] [address] [place] [address]Dr. Neelamandrew Bailey ALP [Catalytic activity/Vol] 96 U/L Normal 46-116 [facility] Comment on above: Performed By: #### C MP, URIC, MG, PHOS ####[facility] [address]ftkm[address] [place] [address]Dr. Ashok Bailey ALT [Catalytic activity/Vol] 17 U/L Normal 14-59 [facility] Comment on above: Performed By: #### C MP, URIC, MG, PHOS ####[facility] [address]ax[address] [place] [address]Dr. Ashok Bailey Anion gap [Moles/Vol] 15.4 mmol/L Normal Th [facility] Comment on above: Performed By: #### C MP, URIC, MG, PHOS ####[facility] Dr[address]ukrhca[address] [place] [address]Dr. Ahsok Bailey AST [Catalytic activity/Vol] 15 U/L Normal 15-37 [facility] Comment on above: Performed By: #### C MP, URIC, MG, PHOS ####[facility] [address] [place], [place] [address]Dr. Ashok Bailey Bilirubin [Mass/Vol] 0.3 mg/dL Normal 0.2-1.0 [facility] Comment on above: Performed By: #### C MP, URIC, MG, PHOS ####[facility] [address] [place], [place] [address]Dr. Ashok Bailey Calcium [Mass/Vol] 9.1 mg/dL Normal 8.5-10.1 [facility] Comment on above: Performed By: #### C MP, URIC, MG, PHOS ####[facility] [address] [place], [place] [address]Dr. Ashok Bailey Chloride [Moles/Vol] 103 mmol/L Normal 98-107 [facility] Comment on above: Performed By: #### C MP, URIC, MG, PHOS ####[facility] [address] [place], [place] [address]Dr. Ashok Bailey CO2 [Moles/Vol] 24.9 mmol/L Normal 21.0-32.0 [facility] Comment on above: Performed By: #### C MP, URIC, MG, PHOS ####[facility] Rd[address]znvwnc[address] [place], [place] [address]Dr. Ashok Bailey Creatinine [Mass/Vol] 1.35 mg/dL Critically high 0.55-1.02 [facility] Comment on above: Performed By: #### C MP, URIC, MG, PHOS ####[facility] [address]fup[address] [place] [address]Dr. Ashok Bailey EGFR-AF PRYDEINIG 46 mL/min/1.73m2 Critically low >=60 [facility] Comment on above: Performed By: #### C MP, URIC, MG, PHOS ####[facility] [address] [place] [address]Dr. Ashok Bailey EGFR-NON AF PRYDEINIG 38 mL/min/1.73m2 Critically low >=60 [facility] Comment on above: Performed By: #### C MP, URIC, MG, PHOS ####[facility] [address] [place] [address]Dr. Ashok Bailey Globulin (S) [Mass/Vol] 3.4 g/dL Normal T [facility] Comment on above: Performed By: #### C MP, URIC, MG, PHOS ####[facility] Ts[address] [place], [place] [address]Dr. Ashok Bailey Glucose [Mass/Vol] 86 mg/dL Normal 74-106 [facility] Comment on above: Performed By: #### C MP, URIC, MG, PHOS ####[facility] [address]ks[address] [place], [place] [address]Dr. Ashok Bailey Potassium [Moles/Vol] 4.3 mmol/L Normal 3.5-5.1 [facility] Comment on above: Performed By: #### C MP, URIC, MG, PHOS ####[facility] [address] [place], [place] [address]Dr. Ashok Bailey Protein [Mass/Vol] 7.2 g/dL Normal 6.4-8.2 [facility] Comment on above: Performed By: #### C MP, URIC, MG, PHOS ####[facility] [address] [place], [place] [address]Dr. Ashok Bailey Sodium [Moles/Vol] 139 mmol/L Normal 136-145 [facility] Comment on above: Performed By: #### C MP, URIC, MG, PHOS ####[facility] H[address] [place], [place] [address]Dr. Yilan Bailey Urea nitrogen [Mass/Vol] 20.0 mg/dL Critically high 7.0-18 .0 [facility] Comment on above: Performed By: #### C MP, URIC, MG, PHOS ####[facility] [address] [place] [address]Dr. Ashok Bailey Urea nitrogen/Creatinine [Ma ss ratio] 14.8 mg/mg Normal [facility] Comment on above: Performed By: #### C MP, URIC, MG, PHOS ####[facility] [address]cteg[address] [place] [address]Dr. Ashok Bailey UA RANDOMon 06-01-2022 Bilirubin Ql (U) Negative Normal NEGATIVE [facility] Comment on above: Performed By: #### U A #### [facility] [address] [place] [address] Dr. Ashok Bailey Clarity (U) CLEAR Normal CLEAR [facility] Comment on above: Performed By: #### U A #### [facility] [address] [place] [address] Dr. Ashok Bailey Color (U) LT. YELLOW Normal YELLOW [facility] Comment on above: Performed By: #### U A #### [facility] [address] [place] [address] Dr. Ashok Bailey Glucose Ql (U) Negative Normal NEGATIVE [facility] Comment on above: Performed By: #### U A #### [facility] [address] [place] [address] [address] Ashok Bailey Hemoglobin Ql (U) Negative Normal NEGATIVE [facility] Comment on above: Performed By: #### U A #### [facility] [address] [place] [address] Dr. Ashok Bailey Ketones Ql (U) Negative Normal NEGATIVE [facility] Comment on above: Performed By: #### U A #### [facility] [address] [place] [address] Dr. Ashok Bailey LEUKOCYTES Negative Normal NEGATIVE [facility] Comment on above: Performed By: #### U A #### [facility] [address] [place] [address] Dr. Ashok Bailey Nitrite Ql (U) Negative Normal NEGATIVE [facility] Comment on above: Performed By: #### U A #### [facility] [address] [place] [address] Dr. Ashok Bailey pH (U) 6.0 [pH] Normal 5-9 [facility] Comment on above: Performed By: #### U A #### [facility] [address] [place] [address] Dr. Ashok Bailey SPEC GRAVITY 1.010 Normal 1.005-<=1. 025 [facility] Comment on above: Performed By: #### U A #### [facility] [address] [place] [address] Dr. Ashok Bailey UA PROTEIN Negative Normal NEGATIVE/ TRACE [facility] Comment on above: Performed By: #### U A #### [facility] [address] [place] [address] Dr. Ashok Bailey Urobilinogen Qn (U) 0.2 {Drew'U}/dL Normal 0.2 - 1.0 [facility] Comment on above: Performed By: #### U A #### [facility] [address] [place] [address] Dr. Ashok Bailey URIC ACID SERUMon 06-01-2022 Urate [Mass/Vol] 3.9 mg/dL Normal 2.6-6.0 [facility] Comment on above: Performed By: #### C MP, URIC, MG, PHOS ####[facility] [address] [place] [address]Dr. Ashok Bailey URINE T PROTEIN CREAT RATIOo n 06-01-2022 Protein (U) [Mass/Vol] 14.0 mg/dL Critically high <=12.0 [facility] Comment on above: Performed By: #### U RTPCR #### [facility] [address] [place] [address] Dr. Ashok Bailey UR PROT CREAT RAT 0.28 Normal [facility] Comment on above: Performed By: #### U RTPCR #### [facility] [address] [place] [address] Dr. Ashok Bailey URINE CREAT 50.47 mg/dL Normal 20.00-300. 00 [facility] Comment on above: Performed By: #### U RTPCR #### [facility] [address] [place] [address] [address] Ahsok Bailey VITAMIN D 25 OHon 06-01-2022 VIT D 25-OH 19.2 ng/mL Normal [facility] Comment on above: Performed By: #### F T4 #### [facility] [address] [place] [address] [address] Ashok Bailey VIT D RANGES SEE BELOW Normal [facility] Comment on above: Result Comment: <20 ng/mL Vit D deficient 20 - <30 ng/mL Vit D insufficient 30 - 100 ng/mL Vit D sufficient >100 ng/mL Potential Toxicity Performed By: #### F T4 #### [facility] [address] [place] [address] Dr. Ashok Bailey US KIDNEYSon 05-03-2022 US KIDNEYS US KIDNEYS EXAM DATE: 05/03/2022 7:10 AM MST COMPARISON: None available. INDICATION: Stage IV chronic kidney disease. TECHNIQUE: Real-time ultrasound scanning of the kidneys and bladder was performed by the bariatric surgeon. [employer] static images are submitted for review. FINDINGS: [...] correlation with urinalysis. Electronically authenticated by: JOBY ESTERNIXON Date: 2022-05-03 12:33 Normal [facility] FREE T4on 03-25-2022 Free T4 [Mass/Vol] 1.26 ng/dL Normal 0.76-1.46 [facility] Comment on above: Performed By: #### F T4 #### [facility] [address] [place] [address] [address] Ashok Bailey PROF CHEM 8 (BAS METB)on Anion gap [Moles/Vol] 17.6 mmol/L Normal [facility] Comment on above: Performed By: #### B MP, TSH ####[facility] [address] [place] [address]Dr. Ashok Bailey Calcium [Mass/Vol] 8.9 mg/dL Normal 8.5-10.1 [facility] Comment on above: Performed By: #### B MP, TSH ####[facility] [address] [place] [address]Dr. Ashok Bailey Chloride [Moles/Vol] 97 mmol/L Critically low 98-107 [facility] Comment on above: Performed By: #### B MP, TSH ####[facility] [address]ktc[address] [place] [address]Dr. Ashok Bailey CO2 [Moles/Vol] 22.2 mmol/L Normal 21.0-32.0 [facility] Comment on above: Performed By: #### B MP, TSH ####[facility] [address] [place] [address]Dr. Ashok Bailey Creatinine [Mass/Vol] 2.42 mg/dL Critically high 0.55-1.02 [facility] Comment on above: Performed By: #### B MP, TSH ####[facility] [address] [place] [address]Dr. Ashok Bailey EGFR-AF PRYDEINIG 24 mL/min/1.73m2 Critically low >=60 [facility] Comment on above: Performed By: #### B ROBERTO, TSH ####[facility] [address] [place] [id number]. Neelamandrew Leo EGFR-NON AF PRYDEINIG 20 mL/min/1.73m2 Critically low >=60 [facility] Comment on above: Performed By: #### B MP, TSH ####[facility] [address] [place] [address]Dr. Ashok Bailey Glucose [Mass/Vol] 84 mg/dL Normal 74-106 [facility] Comment on above: Performed By: #### B ROBERTO, TSH ####[facility] [address] [place] [id number]. Ashok Bailey Potassium [Moles/Vol] 4.8 mmol/L Normal 3.5-5.1 [facility] Comment on above: Performed By: #### B ROBERTO, TSH ####[facility] [address]ifqr[address] [place] [address]Dr. Ashok Bailey Sodium [Moles/Vol] 132 mmol/L Critically low 136-145 Th [facility] Comment on above: Performed By: #### B ROBERTO, TSH ####[facility] [address] [place] [address]Dr. Ashok Bailey Urea nitrogen [Mass/Vol] 43.0 mg/dL Critically high 7.0-18 .0 [facility] Comment on above: Performed By: #### B ROBERTO, TSH ####[facility] [address] [place] [address]Dr. Ashok Bailey Urea nitrogen/Creatinine [Ma ss ratio] 17.8 mg/mg Normal [facility] Comment on above: Performed By: #### B ROBERTO, TSH ####[facility] [address] [place] [id number]. Ashok Bailey TSHon 03-25-2022 TSH 2.368 uIU/mL Normal 0.358-3.74 0 [facility] Comment on above: Performed By: #### B ROBERTO, TSH ####[facility] [address] [place] [address]Dr. Ashok Bailey CPKon 11-12-2021 CK [Catalytic activity/Vol] 207 U/L Critically high 26- 192 [facility] Comment on above: Performed By: #### C MP, CK, TSH, LIPID #### [facility] [address] [address] [address] Ashok Bailey FREE T4on 11-12-2021 Free T4 [Mass/Vol] 1.16 ng/dL Normal 0.76-1.46 [facility] Comment on above: Performed By: #### F T4 #### [facility] [address] [place] [address] [address] Ashok Bailey LIPID PROFILEon 11-12-2021 CHOL-HDL RATIO NORM SEE BELOW Normal [facility] Comment on above: Result Comment: 3.3 - 4.4 LOW RISK 4.4 - 7.1 AVERAGE RISK 7.1 - 11.0 MODERATE RISK >11.0 HIGH RISK Performed By: #### C MP, CK, TSH, LIPID #### [facility] [address] [place] [address] [address] Ashok Bailey Cholesterol [Mass/Vol] 215 mg/dL Critically high <=200 [facility] Comment on above: Performed By: #### C MP, CK, TSH, LIPID #### [facility] [address] [place] [address] [address] Ashok Bailey Cholesterol in HDL [Mass/Vol] 74 mg/dL Critically high 4 0-60 [facility] Comment on above: Performed By: #### C MP, CK, TSH, LIPID #### [facility] [address] [place] [address] [address] Ashok Bailey Cholesterol in LDL [Mass/Vol] 114.4 mg/dL Normal [facility] Comment on above: Performed By: #### C MP, CK, TSH, LIPID #### [facility] [address] [address] [address] Ashok Bailey Cholesterol.total/Cholestero l in HDL [Mass ratio] 2.9 {ratio} Normal [facility] Comment on above: Performed By: #### C MP, CK, TSH, LIPID #### [facility] [address] [place] [address] [address] Ashok Bailey HDL NORMAL > or = 60 mg/dl - LOW CARDIOVASCULAR RISK <40 mg/dl - HIGH CARDIOVASCULAR RISK Normal [facility] Comment on above: Performed By: #### C MP, CK, TSH, LIPID #### [facility] [address] [address] [address] Ashok Bailey LDL CALC NORMAL SEE BELOW Normal [facility] Comment on above: Result Comment: <100 mg/dl OPTIMAL 100 - 129 mg/dl NEAR OR ABOVE OPTIMAL 130 - 159 mg/dl BORDERLINE HIGH 160 - 189 mg/dl HIGH >190 mg/dl VERY HIGH Performed By: #### C MP, CK, TSH, LIPID #### [facility] [address] [address] [address] Ashok Bailey Triglyceride [Mass/Vol] 133 mg/dL Normal <=150 T [facility] Comment on above: Performed By: #### C MP, CK, TSH, LIPID #### [facility] [address] [place] [address] [address] Ashok Bailey VLDL CALC 26.6 mg/dL Normal [facility] Comment on above: Performed By: #### C MP, CK, TSH, LIPID #### [facility] [address] [address] [address] Ashok Bailey PROF 14(COMP METB)on 022 Albumin [Mass/Vol] 3.9 g/dL Normal 3.4-5.0 [facility] Comment on above: Performed By: #### C MP, CK, TSH, LIPID #### [facility] [address] [place] [address] Dr. Ashok Bailey Albumin/Globulin [Mass ratio] 1.1 {ratio} Normal [facility] Comment on above: Performed By: #### C MP, CK, TSH, LIPID #### [facility] [address] [address] [address] Ashok Bailey ALP [Catalytic activity/Vol] 84 U/L Normal 46-116 [facility] Comment on above: Performed By: #### C MP, CK, TSH, LIPID #### [facility] [address] [place], [place] [id number] Dr. Ashok Bailey ALT [Catalytic activity/Vol] 18 U/L Normal 14-59 [facility] Comment on above: Performed By: #### C MP, CK, TSH, LIPID #### [facility] [address] [place] [address] Dr. Ashok Bailey Anion gap [Moles/Vol] 15.1 mmol/L Normal Th [facility] Comment on above: Performed By: #### C MP, CK, TSH, LIPID #### [facility] [address] [place] [address] Dr. Ashok Bailey AST [Catalytic activity/Vol] 11 U/L Critically low 15- 37 [facility] Comment on above: Performed By: #### C MP, CK, TSH, LIPID #### [facility] [address] [place] [address] Dr. Ashok Bailey Bilirubin [Mass/Vol] 0.3 mg/dL Normal 0.2-1.0 [facility] Comment on above: Performed By: #### C MP, CK, TSH, LIPID #### [facility] [address] [place] [address] Dr. Ashok Bailey Calcium [Mass/Vol] 9.3 mg/dL Normal 8.5-10.1 [facility] Comment on above: Performed By: #### C MP, CK, TSH, LIPID #### [facility] [address] [place] [address] Dr. Ashok Bailey Chloride [Moles/Vol] 101 mmol/L Normal 98-107 [facility] Comment on above: Performed By: #### C MP, CK, TSH, LIPID #### [facility] [address] [place] [address] Dr. Ashok Bailey CO2 [Moles/Vol] 22.9 mmol/L Normal 21.0-32.0 [facility] Comment on above: Performed By: #### C MP, CK, TSH, LIPID #### [facility] [address] [place] [address] Dr. Ashok Bailey Creatinine [Mass/Vol] 1.67 mg/dL Critically high 0.55-1.02 [facility] Comment on above: Performed By: #### C MP, CK, TSH, LIPID #### [facility] [address] [place] [address] Dr. Ashok Bailey EGFR-AF PRYDEINIG 36 mL/min/1.73m2 Critically low >=60 [facility] Comment on above: Performed By: #### C MP, CK, TSH, LIPID #### [facility] [address] [place] [address] Dr. Ashok Bailey EGFR-NON AF PRYDEINIG 30 mL/min/1.73m2 Critically low >=60 [facility] Comment on above: Performed By: #### C MP, CK, TSH, LIPID #### [facility] [address] [place] [address] Dr. Ashok Bailey Globulin (S) [Mass/Vol] 3.5 g/dL Normal T [facility] Comment on above: Performed By: #### C MP, CK, TSH, LIPID #### [facility] [address] [place] [address] Dr. Ashok Bailey Glucose [Mass/Vol] 96 mg/dL Normal 74-106 [facility] Comment on above: Performed By: #### C MP, CK, TSH, LIPID #### [facility] [address] [place] [address] Dr. Ashok Bailey Potassium [Moles/Vol] 5.0 mmol/L Normal 3.5-5.1 [facility] Comment on above: Performed By: #### C MP, CK, TSH, LIPID #### [facility] [address] [place] [address] Dr. Ashok Bailey Protein [Mass/Vol] 7.4 g/dL Normal 6.4-8.2 [facility] Comment on above: Performed By: #### C MP, CK, TSH, LIPID #### [facility] [address] [place] [address] Dr. Ashok Bailey Sodium [Moles/Vol] 134 mmol/L Critically low 136-145 Th [facility] Comment on above: Performed By: #### C MP, CK, TSH, LIPID #### [facility] [address] [address] [address] Ashok Bailey Urea nitrogen [Mass/Vol] 27.0 mg/dL Critically high 7.0-18 .0 [facility] Comment on above: Performed By: #### C MP, CK, TSH, LIPID #### [facility] [address] [place], [place] [address] Dr. Ashok Bailey Urea nitrogen/Creatinine [Ma ss ratio] 16.2 mg/mg Normal [facility] Comment on above: Performed By: #### C MP, CK, TSH, LIPID #### [facility] [address] [address] [address] Ashok Bailey TSHon 11-12-2021 TSH 3.073 uIU/mL Normal 0.358-3.74 0 [facility] Comment on above: Performed By: #### C MP, CK, TSH, LIPID #### [facility] [address] [place] [address] Dr. Ashok Bailey COMPREHENSIVE METABOLIC PANE Lucas 05-30-2021 Albumin [Mass/Vol] 4.7 g/dL Normal 3.6-5.1 [facility] Comment on above: Performed By: #### 7 600, 84239 #### [facility] [place] [address] Pellet Preparation Operator: Austin Tobin MD Albumin/Globulin [Mass ratio] 1.8 {ratio} Normal 1.0-2 .5 [facility] Comment on above: Performed By: #### 7 600, 40030 #### [facility] [place] [address] Pellet Preparation Operator: Austin Tobin MD ALP [Catalytic activity/Vol] 84 U/L Normal 37-153 [facility] Comment on above: Performed By: #### 7 600, 99820 #### [facility] [place] [address] Pellet Preparation Operator: Austin Tobin MD ALT [Catalytic activity/Vol] 13 U/L Normal 6-29 [facility] Comment on above: Performed By: #### 7 600, 56164 #### [facility] [place] [address] Pellet Preparation Operator: Austin Tobin MD AST [Catalytic activity/Vol] 12 U/L Normal 10-35 [facility] Comment on above: Performed By: #### 7 600, 75289 #### [facility] of [place] [address] Pellet Preparation Operator: Austin Tobin MD Bilirubin [Mass/Vol] 0.3 mg/dL Normal 0.2-1.2 [facility] Comment on above: Performed By: #### 7 600, 48128 #### [facility] of [place] [address] Pellet Preparation Operator: Austin Tobin MD BUN/CREATININE RATIO NOT APPLICABLE Normal 6-22 [facility] Comment on above: Performed By: #### 7 600, 62197 #### [facility] of [place] [address] Pellet Preparation Operator: Austin Tobin MD Calcium [Mass/Vol] 10.2 mg/dL Normal 8.6-10.4 [facility] Comment on above: Performed By: #### 7 600, 43057 #### [facility] of [place] [address] Pellet Preparation Operator: Austin Tobin MD Chloride [Moles/Vol] 99 mmol/L Normal 98-110 [facility] Comment on above: Performed By: #### 7 600, 67042 #### [facility] of [place] [address] Pellet Preparation Operator: Austin Tobin MD CO2 [Moles/Vol] 29 mmol/L Normal 20-32 [facility] Comment on above: Performed By: #### 7 600, 32933 #### [facility] of [place] [address] Pellet Preparation Operator: Austin Tobin MD Creatinine [Mass/Vol] 0.71 mg/dL Normal 0.60-0.[address] [facility] [address] [facility] Comment on above: Result Comment: For patients >49 years of age, the reference limit for Creatinine is approximately 13% higher for people identified as -Ivorian. Performed By: #### 7 600, 65664 #### [facility] [address], [address] [place] [address] Pellet Preparation Operator: Austin Tobin MD eGFR NON-AFR. PRYDEINIG 84 mL/min/1.73m2 Normal > OR = 60 [facility] Comment on above: Performed By: #### 7 600, 07858 #### [facility] [address], [address] [place] [address] Pellet Preparation Operator: Austin Tobin MD GFR/1.73 sq M.predicted rosa m rashel anjana MDRD (S/P/Bld) [Vol rate/Area] 97 mL/min/{1.73_m2} Normal > OR = 60 [facility] Comment on above: Performed By: #### 7 600, 53144 #### [facility] [address], [address] [place] [address] Pellet Preparation Operator: Austin Tobin MD Globulin (S) [Mass/Vol] 2.6 g/dL Normal 1.9-3.7 [facility] Comment on above: Performed By: #### 7 600, 89408 #### [facility] [place] [address] Pellet Preparation Operator: Austin Tobin MD Glucose [Mass/Vol] 86 mg/dL Normal 65-99 [facility] Comment on above: Result Comment: Fasting reference interval Performed By: #### 7 600, 76470 #### [facility] [place] [address] Pellet Preparation Operator: Austin Tobin MD Potassium [Moles/Vol] 4.4 mmol/L Normal 3.5-5.[address] [facility] Comment on above: Performed By: #### 7 600, 16477 #### [facility] [place] [address] Pellet Preparation Operator: Austin Tobin MD Protein [Mass/Vol] 7.3 g/dL Normal 6.1-8.1 [facility] Comment on above: Performed By: #### 7 600, 34519 #### [facility] of [place] [address] Pellet Preparation Operator: Austin Tobin MD Sodium [Moles/Vol] 135 mmol/L Normal 135-146 [facility] Comment on above: Performed By: #### 7 600, 72620 #### [facility] of [address], [address] [place] [address] Pellet Preparation Operator: Austin Tobin MD Urea nitrogen [Mass/Vol] 10 mg/dL Normal 7-25 [facility] Comment on above: Performed By: #### 7 600, 09714 #### [facility] [place] [address] Pellet Preparation Operator: Austin Tobin MD LIPID PANEL, [facility] 05-05 Cholesterol [Mass/Vol] 214 mg/dL High <200 [facility] Comment on above: Performed By: #### 7 600, 16524 #### [facility] [place] [address] Pellet Preparation Operator: Austin Tobin MD Cholesterol in HDL [Mass/Vol] 85 mg/dL Normal > OR = 50 [facility] Comment on above: Performed By: #### 7 600, 08237 #### [facility] [place] [address] Pellet Preparation Operator: Austin Tobin MD Cholesterol in LDL [Mass/Vol] [...] LDL-C. Jordan HOU et al. JAUN. 2013;310(19): 2711-9252 (http://education.[employer]/faq/TJY915) Performed By: #### 7 600, 44581 #### [facility] [place] [address] Pellet Preparation Operator: Austin Tobin MD Cholesterol.total/Cholestero l in HDL [Mass ratio] 2.5 {ratio} Normal <5.0 [facility] Comment on above: Performed By: #### 7 600, 08797 #### [facility] [address], [address] [place] [address] Pellet Preparation Operator: Austin Tobin MD NON HDL CHOLESTEROL 129 mg/dL (calc) Normal <130 [facility] Comment on above: Result Comment: For patients with diabetes plus 1 major ASCVD risk factor, treating to a non-HDL-C goal of <100 mg/dL (LDL-C of <70 mg/dL) is considered a therapeutic option. Performed By: #### 7 600, 30322 #### [facility] [place] [address] Pellet Preparation Operator: Austin Tobin MD Triglyceride [Mass/Vol] 113 mg/dL Normal <150 [facility] Comment on above: Performed By: #### 7 600, 45795 #### [facility] [place] [address] Pellet Preparation Operator: Austin Tobin MD [email or web address]] METABOLIC PANE [facility] 05-04-2021 Albumin [Mass/Vol] 4.3 g/dL Normal 3.6-5.1 [facility] Comment on above: Performed By: #### 7 600, 37801 #### [facility] [place] [address] Pellet Preparation Operator: Austin Tobin MD Albumin/Globulin [Mass ratio] 1.8 {ratio} Normal 1.0-2 .5 [facility] Comment on above: Performed By: #### 7 600, 78375 #### [facility] [place] [address] Pellet Preparation Operator: Austin Tobin MD ALP [Catalytic activity/Vol] 82 U/L Normal 37-153 [facility] Comment on above: Performed By: #### 7 600, 76612 #### [facility] of [address], [address] [place] [address] Pellet Preparation Operator: Austin Tobin MD ALT [Catalytic activity/Vol] 11 U/L Normal 6-29 [facility] Comment on above: Performed By: #### 7 600, 55419 #### [facility] of [address], [address] [place] [address] Pellet Preparation Operator: Austin Tobin MD AST [Catalytic activity/Vol] 12 U/L Normal 10-35 [facility] Comment on above: Performed By: #### 7 600, 85175 #### [facility] of [place] [address] Pellet Preparation Operator: Austin Tobin MD Bilirubin [Mass/Vol] 0.4 mg/dL Normal 0.2-1.2 [facility] Comment on above: Performed By: #### 7 600, 36252 #### [facility] of [place] [address] Pellet Preparation Operator: Austin Tobin MD BUN/CREATININE RATIO NOT APPLICABLE Normal 6-22 [facility] Comment on above: Performed By: #### 7 600, 49101 #### [facility] of [place] [address] Pellet Preparation Operator: Austin Tobin MD Calcium [Mass/Vol] 9.4 mg/dL Normal 8.6-10.4 [facility] Comment on above: Performed By: #### 7 600, 14666 #### [facility] of [address], [address] [place] [address] Pellet Preparation Operator: Austin Tobin MD Chloride [Moles/Vol] 98 mmol/L Normal 98-110 [facility] Comment on above: Performed By: #### 7 600, 51057 #### [facility] of [address], [address] [place] [address] Pellet Preparation Operator: Austin Tobin MD CO2 [Moles/Vol] 28 mmol/L Normal 20-32 [facility] Comment on above: Performed By: #### 7 600, 96216 #### [facility] [address], [address] [place] [address] Pellet Preparation Operator: Austin Tobin MD Creatinine [Mass/Vol] 0.73 mg/dL Normal 0.60-0.[address] [facility] Comment on above: Result Comment: For patients >49 years of age, the reference limit for Creatinine is approximately 13% higher for people identified as -Ivorian. Performed By: #### 7 600, 63277 #### [facility] [address], [address] [place] [address] Pellet Preparation Operator: Austin Tobin MD eGFR NON-AFR. PRYDEINIG 82 mL/min/1.73m2 Normal > OR = 60 [facility] Comment on above: Performed By: #### 7 600, 24585 #### [facility] [address], [address] [place] [address] Pellet Preparation Operator: Austin Tobin MD GFR/1.73 sq M.predicted rosa m g blacks MDRD (S/P/Bld) [Vol rate/Area] 95 mL/min/{1.73_m2} Normal > OR = 60 [facility] Comment on above: Performed By: #### 7 600, 64517 #### [facility] [address], [address] [place] [address] Pellet Preparation Operator: Austin Tobin MD Globulin (S) [Mass/Vol] 2.4 g/dL Normal 1.9-3.7 [facility] Comment on above: Performed By: #### 7 600, 44342 #### [facility] [address], [address] [place] [address] Pellet Preparation Operator: Austin Tobin MD Glucose [Mass/Vol] 102 mg/dL Normal 65-139 [facility] Comment on above: Result Comment: Non-fasting reference interval For someone without known diabetes, a glucose value between 100 and 125 mg/dL is consistent with prediabetes and should be confirmed with a follow-up test. Performed By: #### 7 600, 86275 #### [facility] of [address], [address] [place] [address] Pellet Preparation Operator: Austin Tobin MD Potassium [Moles/Vol] 4.3 mmol/L Normal 3.5-5.[address] [facility] Comment on above: Performed By: #### 7 600, 66811 #### [facility] of [address], [address] [place] [address] Pellet Preparation Operator: Austin Tobin MD Protein [Mass/Vol] 6.7 g/dL Normal 6.1-8.1 [facility] Comment on above: Performed By: #### 7 600, 46590 #### [facility] of [address], [address] [place] [address] Pellet Preparation Operator: Austin Tobin MD Sodium [Moles/Vol] 132 mmol/L Low 135-146 [facility] Comment on above: Performed By: #### 7 600, 65633 #### [facility] of [address], [address] [place] [address] Pellet Preparation Operator: Austin Tobin MD Urea nitrogen [Mass/Vol] 12 mg/dL Normal 7-25 [facility] Comment on above: Performed By: #### 7 600, 79459 #### [facility] of [address], [address] [place] [address] Pellet Preparation Operator: Austin Tobin MD LIPID PANEL, [facility] 03-0 Cholesterol [Mass/Vol] 168 mg/dL Normal <200 [facility] Comment on above: Order Comment: FASTI NG:NO FASTING: NO Performed By: #### 7 600, 76033 #### [facility] of [address], [address] [place] [address] Pellet Preparation Operator: Austin Tobin MD Cholesterol in HDL [Mass/Vol] 79 mg/dL Normal > OR = 50 [facility] Comment on above: Order Comment: FASTI NG:NO FASTING: NO Performed By: #### 7 600, 22372 #### [facility] of [address], [address] [place] [address] Pellet Preparation Operator: Austin Tobin MD Cholesterol in LDL [Mass/Vol] [...] LDL-C. Jordan SS et al. JAUN. 2013;310(19): 4124-6026 (http://education.[employer]/faq/IDF258) Performed By: #### 7 600, 88517 #### [facility] [address], [address] [place] [address] Pellet Preparation Operator: Austin Tobin MD Cholesterol.total/Cholestero l in HDL [Mass ratio] 2.1 {ratio} Normal <5.0 [facility] Comment on above: Order Comment: FASTI NG:NO FASTING: NO Performed By: #### 7 600, 53252 #### [facility] [address], [address] [place] [address] Pellet Preparation Operator: Austin Tobin MD NON HDL CHOLESTEROL 89 mg/dL (calc) Normal <130 [facility] Comment on above: Order Comment: FASTI NG:NO FASTING: NO Result Comment: For patients with diabetes plus 1 major ASCVD risk factor, treating to a non-HDL-C goal of <100 mg/dL (LDL-C of <70 mg/dL) is considered a therapeutic option. Performed By: #### 7 600, 54571 #### [facility] [address], [address] [place] [address] Pellet Preparation Operator: Austin Tobin MD Triglyceride [Mass/Vol] 79 mg/dL Normal <150 [facility] Comment on above: Order Comment: FASTI NG:NO FASTING: NO Performed By: #### 7 600, 66217 #### [facility] [address], [address] [place] [address] Pellet Preparation Operator: Austin Tobin MD Vital Signs Date Time Vital Sign Value Performing Clinician Facility 03-30-2023 08:33-0500 Body height 160 cm Lian Dan [employer]OMMEL T[employer]ER[employer]LOAD BLOCKER Work Phone: [facility] 03-30-2023 08:33-0500 Body mass index (BMI) [Ratio] 24.66 kg/m2 Lian Dan [employer]OMMEL TENDER[employer]LOAD BLOCKER Work Phone: [facility] 03-30-2023 08:33-0500 Body temperature 97.9 [degF] Lian Dan TROMMEL TENDER-LOAD BLOCKER Work Phone: [facility] 03-30-2023 08:33-0500 Body weight 63.14 kg Lian Dan TROMMEL TENDER[employer]LOAD BLOCKER Work Phone: [facility] 03-30-2023 08:33-0500 Diastolic blood pressure 58 mm[Hg] Lian Dan TROMMEL TENDER[employer]LOAD BLOCKER Work Phone: [facility] 03-30-2023 08:33-0500 Heart rate 78 /min Lian Dan [employer]OMMEL TENDER[employer]LOAD BLOCKER Work Phone: [facility] 03-30-2023 08:33-0500 SaO2% (BldA) [Mass fraction] 100 % Lian Dan TROMMEL TENDER-LOAD BLOCKER Work Phone: [facility] 03-30-2023 08:33-0500 Systolic blood pressure 118 mm[Hg] Lian Dan TROMMEL TENDER-LOAD BLOCKER Work Phone: [facility] 03-28-2023 11:20-0500 Body height 160.02 cm [employer] Other [facility] Other 03-28-2023 11:20-0500 Body mass index (BMI) [Ratio] 24.83 kg/m2 [employer] Other [facility] Other 03-28-2023 11:20-0500 Body temperature 96.9 [degF] Aziz Bakhous Other [facility] Other 03-28-2023 11:20-0500 Body weight 63.59 kg Aziz Bakhous Other [facility] Other 03-28-2023 11:20-0500 Diastolic blood pressure 70 mm[Hg] Aziz Bakhous Other [facility] Other 03-28-2023 11:20-0500 Systolic blood pressure 138 mm[Hg] Aziz Bakhous Other [facility] Other 10-11-2022 14:20-0400 Body height 160.02 cm Aziz Bakhous Other [facility] Other 10-11-2022 14:20-0400 Body mass index (BMI) [Ratio] 24.8 kg/m2 Aziz Bakhous Other [facility] Other 10-11-2022 14:20-0400 Body temperature 96.4 [degF] Aziz Bakhous Other [facility] Other 10-11-2022 14:20-0400 Body weight 63.5 kg Aziz Bakhous Other [facility] Other 10-11-2022 14:20-0400 Diastolic blood pressure 60 mm[Hg] Aziz Bakhous Other [facility] Other 10-11-2022 14:20-0400 Respiratory rate 18 /min Aziz Bakhous Other [facility] Other 10-11-2022 14:20-0400 Systolic blood pressure 130 mm[Hg] Aziz Bakhous Other [facility] Other 06-07-2022 10:20-0400 Body height 160.02 cm Aziz Bakhous Other [facility] Other 06-07-2022 10:20-0400 Body mass index (BMI) [Ratio] 24.55 kg/m2 Aziz Bakhous Other [facility] Other 06-07-2022 10:20-0400 Body temperature 97.2 [degF] Aziz Bakhous Other [facility] Other 06-07-2022 10:20-0400 Body weight 62.87 kg Azlokesh Bakhous Other [facility] Other 06-07-2022 10:20-0400 Diastolic blood pressure 72 mm[Hg] Aziz Bakhous Other [facility] Other 06-07-2022 10:20-0400 Respiratory rate 18 /min Azlokesh Bakhous Other [facility] Other 06-07-2022 10:20-0400 SaO2% (BldA) [Mass fraction] 97 % Aziz Bakhous Other [facility] Other 06-07-2022 10:20-0400 Systolic blood pressure 130 mm[Hg] Aziz Bakhous Other [facility] Other 04-26-2022 09:40-0500 Body height Aziz Bakhous Other [facility] Other 04-26-2022 09:40-0500 Body mass index (BMI) [Ratio] 24.97 kg/m2 Bri Davis Other [facility] Other 04-26-2022 09:40-0500 Body weight 63.96 kg Bri Davis Other [facility] Other 04-26-2022 09:40-0500 Diastolic blood pressure 84 mm[Hg] Bri Davis Other [facility] Other 04-26-2022 09:40-0500 SaO2% (BldA) [Mass fraction] 98 % Bri Davis Other [facility] Other 04-26-2022 09:40-0500 Systolic blood pressure 150 mm[Hg] Bri Davis Other [facility] Other Encounters Encounter Date Encounter Type Care Provider Facility Start: 10-10-2023 End: 10-10-[address] [facility] Start: 09-26-2023 End: 09-26-[address] [facility] Start: 07-14-2023 End: 07-14-2023 ambulatory YULIA HERNÁNDEZ Not Available Start: 06-28-2023 End: 06-29-2023 ambulatory [facility] Start: 06-28-2023 End: 06-28-[address] [facility] Start: 06-03-2023 [facility] Comment on above: Special screening fo r malignant neoplasm of colon (Primary Dx) Start: 05-29-2023 Refill Farnaz Bennett [facility] Comment on above: 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 Start: 05-19-2023 End: 05-19-2023 ambulatory YULIA HERNÁNDEZ Not Available Start: 2023 End: 2023 ambulatory Adendragan Laraley Facility:[facility] Start: 05-02-2023 Refill Trixie Jeremy DIRECTOR OF EMPLOYER [employer] [facility] Comment on above: 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 Start: 04-29-2023 Refill Lian Michelle Ni TROMMEL TENDER[employer]LOAD BLOCKER Work Phone: [facility] Start: 04-28-2023 End: 04-28-2023 ambulatory [facility] Start: 04-17-2023 Refill Trixie Jeremy DIRECTOR OF EMPLOYER SERVICES [facility] Comment on above: Essential hypertensi on Start: 04-07-2023 Bamboo flowsheet Yulia mullen PA Work Phone: [facility] Start: 04-07-2023 Bamboo flowsheet Yulia Boucher ns PA Work Phone: [facility] Start: 04-07-2023 End: 04-07-2023 ambulatory YULIAINDU MEYERSANS Not Available Start: 04-07-2023 End: 04-07-2023 Patient encounter procedure Yulia Hernández PA Work Phone: [facility] Comment on above: Actinic keratosis (P rimary Dx) Start: 03-31-2023 End: 04-01-2023 ambulatory [facility] Start: 03-30-2023 End: 03-30-2023 Office outpatient visit 15 minutes Lian Dan TROMMEL TENDER[employer]LOAD BLOCKER [facility] Comment on above: Chronic pain of both shoulders (Primary Dx); Peripheral vascular disease ([facility]); Stage 3b chronic kidney disease ([facility]); Smoker; Lumbosacral spondylosis without myelopathy Start: 03-30-2023 End: 03-30-2023 ambulatory [facility] Start: 03-28-2023 End: 03-28-2023 ambulatory Aziz Bakhous Other [facility] Other Start: 03-28-2023 Office outpatient vi sit 25 minutes Aziz Bakhous [facility] Start: 03-20-2023 Refill Carson cordero DO Work Phone: [facility] Start: 03-10-2023 End: 03-10-2023 ambulatory YULIA HERNÁNDEZ Not Available Start: 03-07-2023 End: 04-06-2023 ambulatory [facility] Start: 03-03-2023 Orders Only [facility] TROMMEL TENDER-LOAD BLOCKER Work Phone: [facility] Start: 03-02-2023 Refill Farnaz Bennett [facility] Comment on above: 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 Start: 02-20-2023 End: 03-06-2023 ambulatory [facility] Start: 10-11-2022 End: 10-11-2022 ambulatory Aziz Bakhous Other [facility] Other Start: 10-11-2022 Office outpatient vi sit 25 minutes Aziz Bakhous [facility] Start: 06-07-2022 End: 06-07-2022 ambulatory Aziz Bakhous Other [facility] Other Start: 06-07-2022 Patient encounter procedure Aziz Bakhous [facility] Start: 06-01-2022 End: 06-02-2022 ambulatory AZIZ BAKHOUS Facility:[facility] Start: 05-03-2022 End: 05-04-2022 ambulatory AZIZ BAKHOUS Facility:[facility] Start: 04-26-2022 End: 04-26-2022 ambulatory Aziz Bakhous Other [facility] [address] Other Start: 04-26-2022 Office outpatient ne w 30 minutes Bri MCNEILL [facility] Start: 03-25-2022 End: 03-26-[address] CARSON SULLIVAN Facility:[facility] Start: 11-12-2021 End: 11-13-[address] CARSON SULLIVAN Facility:[facility] Start: 11-04-2021 End: 11-04-2021 ambulatory SABRINA MANUEL Facility:[facility] Start: 10-07-2021 End: 10-07-2021 ambulatory SABRINA MANUEL Facility:[facility] Procedures Date Procedure Procedure Detail Performing Clinician Start: 04-28-2023 Adult depression scr eening assessment Lian Dan [employer]OMMEL TENDER[employer]LOAD BLOCKER Work Phone: Start: 04-07-2023 CRYOTHERAPY SKIN LESION Yulia FOSTER Work Phone: Start: 03-30-2023 Follow-up visit Follow-up LIAN DAN Start: 03-30-2023 Adult depression scr eening assessment Lian Dan [employer]OMMEL TENDER[employer]LOAD BLOCKER Work Phone: Start: 02-09-2023 Adult depression scr eening assessment Lian Dan [employer]OMMEL TENDER-LOAD BLOCKER Work Phone: Plan of Treatment Date Care Activity Detail Author Start: 04-28-2024 Adult BMI Screening Adult BMI Screen ing [facility] Start: 04-28-2024 Depression Screening Depression Scre ening [facility] Start: 04-28-2024 Fall Risk Screening Fall Risk Screen ing [facility] Start: 04-28-2024 Tobacco Screening Tobacco Screening [facility] Start: 04-10-2024 DTaP,Tdap and Td Vac cines (2 - Td or Tdap) DTaP,Tdap and Td Vaccines (2 - Td or Tdap) [facility] Start: 03-30-2024 Adult BMI Screening Adult BMI Screen ing [facility] Start: 03-30-2024 Depression Screening Depression Scre ening [facility] Start: 03-30-2024 Fall Risk Screening Fall Risk Screen ing [facility] Start: 03-30-2024 Tobacco Screening Tobacco Screening [facility] Start: 02-10-2024 Adult BMI Screening Adult BMI Screen ing [facility] Start: 02-10-2024 Depression Screening Depression Scre ening [facility] Start: 02-10-2024 Fall Risk Screening Fall Risk Screen ing [facility] Start: 02-10-2024 Tobacco Screening Tobacco Screening [facility] [facility] Start: 08-17-2023 End: 08-17-2023 Patient encounter procedure 08/17/2023 11:40 AM EDT Office Visit [facility] Internal Medicine - Family Medicine [address] [place] [address] [facility] Internal Medicine - Family Medicine Start: 08-03-2023 Medicare Annual Well ness Visit Medicare Annual Wellness Visit [facility] Start: 07-19-2023 Administration of varicella zoster vaccine Zoster (Shingles) Vaccine (1 of 2) [facility] Comment on above: Postponed from 05/10 (Patient Refused) Start: 05-19-2023 End: 05-19-2023 Patient encounter procedure 05/19/2023 11:50 AM EDT Office Visit [facility] [address] [place] [address] Yulia Hernández PA [address] [place] [address] [facility] Start: 04-07-2023 End: 04-07-2023 Patient encounter procedure 04/07/2023 10:20 AM EST Office Visit [facility] [address] [place] [id number] Yulia Hernández PA [address] [place] [address] Arrived [facility] Comment on above: Arrived Start: 03-30-2023 End: 03-30-2024 XR Shoulder - left 2 Views X-ray shoulder left minimum 2 views Imaging Routine Chronic pain of both shoulders Expected: 03/30/2023, Expires: 03/30/2024 [facility] Work Phone: Comment on above: Expected: 03/30/2023 , Expires: 03/30/2024 Start: 03-30-2023 End: 03-30-2024 XR Shoulder - right 2 Views X-ray shoulder right minimum 2 views Imaging Routine Chronic pain of both shoulders Expected: 03/30/2023, Expires: 03/30/2024 [facility] Comment on above: Expected: 03/30/2023 , Expires: 03/30/2024 Start: 03-07-2023 End: 03-07-2023 Patient encounter procedure 03/07/2023 2:00 PM EST Appointment [facility] [address] [place] [address] [facility] Start: 02-03-2023 Screening for malign ant neoplasm of colon Colon Cancer Screening 3 Year Cologuard [facility] Start: [birth year]-10-1963 Adult BMI Follow Up Plan Adult BMI Follow Up Plan [facility] Start: 1945 Tobacco Counseling Tobacco Counselin g [facility] Cologuard [facility] Cologuar d [facility] Lab Routine Special screening for malignant neoplasm of colon Ordered: 06/03/2023 [facility] Work Phone: Comment on above: Ordered: 06/03/2023 Immunizations Immunization Date Immunization Notes Care Provider Bonnie ramirez 02-09-2023 Influenza Vaccine, Quadrivalent, Adjuvanted Lian Ni [employer]OMM[employer] T[employer] Work Phone: [facility] 12-04-2020 influenza, high dose seasonal, preservative-free Lian Ni [employer]OMM[employer] T[employer] Work Phone: [facility] 11-25-2019 influenza, injectabl e, quadrivalent, preservative free Lian Ni [employer]OMMEL TENDER[employer]ER Work Phone: [facility] 05-18-2019 Seasonal trivalent influenza vaccine, adjuvanted, preservative free Lian Ni [employer]OMMEL TENDER[employer] BLOCKER Work Phone: [facility] 11-19-2018 Seasonal trivalent influenza vaccine, adjuvanted, preservative free Lian Ni [employer]OMMEL TENDER[employer] BLOCKER Work Phone: [facility] 11-20-2017 influenza, injectabl e, quadrivalent, contains preservative Lian Ni [employer]OMMEL TENDER[employer]ER Work Phone: [facility] 11-20-2017 Seasonal trivalent influenza vaccine, adjuvanted, preservative free Lian Ni [employer]OMMEL TENDER-[employer] Work Phone: [facility] 11-25-2016 influenza, injectabl e, quadrivalent, preservative free Lian Ni TROMMEL TENDER-[employer] BLOCKER Work Phone: [facility] 11-25-2016 influenza, seasonal, injectable Lian Ni [employer]OMM[employer] T[employer] Work Phone: [facility] 03-14-2016 pneumococcal polysaccharide vaccine, 23 valent Lian Ni [employer]OMM[employer] T[employer]ER[employer] Work Phone: [facility] 12-10-2015 influenza, high dose seasonal, preservative-free Lian Ni [employer]OMM[employer] T[employer] Work Phone: [facility] 03-10-2015 pneumococcal conjuga te vaccine, 13 valent Lian Ni [employer]OMM[employer] T[employer] Work Phone: [facility] 12-08-2014 influenza, seasonal, injectable, preservative free Lian Ni [employer]OMM[employer] T[employer] Work Phone: [facility] 04-10-2014 tetanus toxoid, redu savanna diphtheria toxoid, and acellular pertussis vaccine, adsorbed Lian Ni [employer]OMMEL TENDER[employer] Work Phone: [facility] 12-23-2013 influenza virus vacc ine, unspecified formulation Lian Ni [employer]OMMEL TENDER[employer] Work Phone: [facility] 01-28-2013 pneumococcal conjuga te vaccine, 13 valent Lian Ni [employer]OMM[employer] T[employer] Work Phone: [facility] Payers Date Payer Category Payer Self-pay 2013 Medicare [id number] 1959 Medicare [id number] 2.16. [id number] 1945 Unknown [id number] 2.16.84 0.1.665038.3.579.2.593 1945 Unknown [id number] 2.16.84 0.1.736389.3.579.2.593 1945 Unknown [id number] 2.16.84 0.1.065206.3.579.2.593 1945 Unknown [id number] 2.16.84 0.1.316858.3.579.2.593 1947 Unknown [id number] 2.16.84 0.1.419749.3.579.2.593 1947 Unknown [id number] 2.16.84 0.1.104045.3.579.2.593 1947 Unknown [id number] 2.16.8 40.1.376112.3.579.2.1286 1947 Unknown [id number] 2.16.84 0.1.132661.3.579.2.1286 1947 Unknown [id number] 2.16.8 40.1.259292.3.579.2.1286 1947 Unknown [id number] 2.16.8 40.1.776593.3.579.2.1286 1947 Unknown [id number] 2.16.84 0.1.184344.3.579.2.1259 1947 Unknown [id number] 2.16.84 0.1.079757.3.579.2.1259 1947 Unknown [id number] 2.16.84 0.1.052436.3.579.2.1259 1947 Unknown [id number] 2.16.840 .1.666367.3.579.2.1259 1947 Unknown [id number] 2.16.8 40.1.486204.3.579.2.1286 1947 Unknown [id number] 2.16.8 40.1.753222.3.579.2.1286 1947 Unknown [id number] 2.16.8 40.1.582086.3.579.2.1286 1947 Unknown [id number] 2.16.8 40.1.965452.3.579.2.1286 1947 Unknown [id number] 2.16.8 40.1.569387.3.579.2.1286 Unknown [id number] 2.16.8 40.1.210481.3.579.2.531 Social History Date Type Detail Facility Start: 07-18-2022 End: 08-02-2022 Sex Assigned At [facility] Start: 11-16-2021 Tobacco smoking status NMIS Smokes tobacco daily [facility] History of tobacco use Cigarette Smoker P [facility] Start: 11-16-2021 End: 07-18-2022 Cigarettes smoked current (pack per day) - Reported 1 [facility] Start: 11-16-2021 Tobacco use and exposure Smokeless tobacco non-user [facility] Start: 02-09-2023 End: 04-28-2023 Alcohol intake Lifetime non-drinker (finding) [facility] Do you belong to any clubs or organizations such as islam groups, unions, fraternal or athletic groups, or school groups? No [facility] Are you now , , , , never or living with a partner? [facility] How often to you hav e a drink containing alcohol? Monthly or less [facility] How many standard dr inks containing alcohol do you have on a typical day? 1 or 2 [facility] How often do you hav e 6 or more drinks on 1 occasion? Never [facility] How hard is it for y ou to pay for the very basics like food, housing, medical care, and heating Not hard at all [facility] Do you feel stress - tense, restless, nervous, or anxious, or unable to sleep at night because your mind is troubled all the time - these days [OSQ] Only a little [facility] Start: 1945 Sex Assigned At Not on file [facility] Start: 03-10-2023 Tobacco smoking status NMIS Tobacco smoking consumption unknown [facility] Clinical Notes 10-07-2021 to 04-07-2023 KRISTIN Contreras [...] limited to risks of scarring, darker or fiberglass boat maker pigmentary changes, recurrence, incomplete removal and infection. 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 The pain has been going on for about 2 years or more but it has progressively worsened especially on the left side in the last 6 months. She has never received any injections in her shoulders that she can think of. She has no numbness or tingling in her arms. Problem List Items Addressed This Visit Cardiovascular and Mediastinum Peripheral vascular disease (CMS-HCC) Genitourinary Stage 3b chronic kidney disease (CMS-HCC) Other Visit Diagnoses Chronic pain of both [...] Hyperlipidemia Hypokalemia Migraine Osteopenia Peripheral vascular disease ([facility]) Screen for colon cancer 02/04/2020 cologuard-negative Spinal stenosis of lumbar region Vitamin D deficiency Past Surgical History: Procedure Laterality Date APPENDECTOMY CATARACT EXTRACTION Left 10/07/2021 CATARACT EXTRACTION Right 11/04/2021 COLONOSCOPY 1999 HYSTERECTOMY LUMBAR DISC SURGERY 11/11/1996 LUMBAR LAMINECTOMY [...] by mouth every morning 90 tablet 1 gb-mnz-vuffk-calcium carb-K1 400 mcg-500 mg calcium-20 mcg tablet [...] or hospitalization) Allergies: Sulfa (sulfonamide antibiotics), Hydrochlorothiazide, Yhmbtti-byy-wxt reductase inhibitors, and Nickel Tobacco History: Social [...] normal. Judgment: Judgment normal. Assessment and Plan: Nora was seen today for follow-up. Diagnoses and all orders for this visit: Chronic pain of both shoulders - Ambulatory referral to Orthopedic Surgery ([facility]); Future - X-ray shoulder left minimum 2 views; Future - X-ray shoulder right minimum 2 views; Future - Drug Screen, Urine; Future Peripheral vascular disease ([facility]) Stage 3b chronic kidney disease ([facility]) Smoker Follow-up: Will obtain new x-rays bilateral shoulders, order sent to [facility]. Agree with stopping physical therapy if it is not making the pain any better. Patient would like a referral to Orthopedics in [place], this was placed in system. She should [...] file.Pt is due for refill 2/3 - [facility] placed for this specific date. At next appt, consider lowering dose to lowest effective dose to help control pain. NIRANJAN HERRERA APRN-CNP 04/02/23 1244 [facility] encounter [facility] Evaluation note Encounter Date Diagnosis Assessment [...] WNL I asked the patient to continue icud-rgo-ioqlcyf vitamin D supplement 1999Mar, Nephrolithiasis (ICD-10 - N20.0) Renal ultrasound shows nonobstructive bilateral renal calculi which are small in size. I asked the patient to continue ample water intake [facility] Other 12-29-2023 History of Present illness Narrative* NIRANJAN Herrera - 03/03/2023 1:29 PM EST The OARRS/MAPPS database was reviewed today and found to be appropriate. No indication of medication diversion, or non compliance. Pt is due for refill 03/11/22, last filled 02/08/[address] Sullivan who is out of town. NIRANJAN Herrera 03/03/23 1332 [facility] Miscellaneous Notes* Telephone Encounter - Farnaz Bennett CMA - 03/02/2023 2:51 PM EST Pt called and would like a refill on her NORCO. Pharmacy is listed and correct. * Telephone Encounter - NIRANJAN Herrera - 03/02/2023 2:51 PM EST Pt is due for refill 03/11 - I will send but pharmacy will not fill until this time [facility] Telephone encounter Note* Telephone Encounter - Farnaz Bennett CMA - 03/02/2023 2:51 PM EST Pt called and would like a refill on her NORCO. Pharmacy is listed and correct. [facility]23 Telephone encounter Note* Telephone Encounter - NIRANJAN Herrera - 03/02/2023 2:51 PM EST Pt is due for refill 03/11 - I will send but pharmacy will not fill until this time [facility]2023 Evaluation note* Encounter Date Diagnosis Assessment Notes [...] WNL I asked the patient to continue xqdx-eds-fqnmrgf vitamin D supplement 1999Oct, Nephrolithiasis (ICD-10 - N20.0) Renal ultrasound shows nonobstructive bilateral renal calculi which are small in size. I asked the patient to continue ample water intake [facility] Other 04-04-2023 Evaluation note* Encounter Date Diagnosis [...] is low at 19. I patient with udur-qbk-mcivgbn vitamin D supplement 1999Jun, Nephrolithiasis (ICD-10 - N20.0) Renal ultrasound shows nonobstructive bilateral renal calculi which are small in size. I asked the patient to continue ample water intake [facility] Other 02-21-2023 Evaluation note* Encounter Date Diagnosis [...] at home and to follow low-salt diet [facility] Other 09-01-2022 NoteOPERATIVE NOTE OPERATION DATE: 11/04/2021 [...] ensuring mobility, phacoemulsification was performed in a ftftwjr-ujj-fanedj-type fashion. After all nuclear material had been [...] up the following day for postoperative care.[id number] NoteHISTORY AND PHYSICAL EXAMINATION Date:11/03/2021 HISTORY: Patient [...] decline other than that of cataract. 2. TCIJU-52-Cbb patient was briefed in the office and [...] and go forward with this elective procedure.[facility] [id number] NoteOPERATIVE NOTE OPERATION DATE: 10/07/2021 SURGEON: Sabrina [...] ensuring mobility, phacoemulsification was performed in a jrgwsei-rcq-gbzkgi-type fashion. After all nuclear material had been [...] up the following day for postoperative care.[facility] 10-07-2021 NoteHISTORY AND PHYSICAL EXAMINATION Date:10/06/2021 [...] decline other than that of cataract. 2. [id number]-23-[id number] patient was briefed in the office and [...] and go forward with this elective procedure.[facility]* Diagnosis Lumbosacral spondylosis without myelopathy [facility] encounter [facility] Diagnosis Chronic pain of both shoulders- Primary Peripheral vascular disease ([facility]) Unspecified peripheral vascular disease Stage 3b chronic kidney disease ([facility]) Smoker Tobacco use disorder Lumbosacral spondylosis without myelopathy documented [facility] this encounter [facility]* Diagnosis Actinic keratosis- Primary [facility] Diagnosis Essential hypertension Unspecified essential hypertension documented [facility] this [facility] Diagnosis Lumbosacral spondylosis without myelopathy documented [facility]* Diagnosis Special screening for malignant neoplasm of colon- Primary Special screening for malignant neoplasms, colon documented in this [facility]* Diagnosis Lumbosacral spondylosis without myelopathy documented [facility] this encounter [facility] N[facility]ative - Reported* Type [...] cataract surgery -11/2021 Hospitalization History See Sx Hx [facility] Other History general Narrative - Reported* Type [...] ON NOSE Hospitalization History See Sx Hx [facility] Other InstructionsNot on filedocumented in this encounter [facility]ructionsNot on filedocumented in this encounter [facility] SystemInstructionsNot on filedocumented in this encounter [facility] SystemInstructionsNot on filedocumented in this encounter [facility]* Attachments The following attachments cannot be sent through Care Everywhere. * Shoulder Pain Discharge Instructions (Greek) documented in this encounterProAcendi Interactive SystemInstructionsNot on file documented in this encounterProAcendi Interactive SystemInstructionsNot on file documented in this encounterProAcendi Interactive SystemInstructionsNot on file documented in this encounterProAcendi Interactive SystemReason for referral (narrative)* Consultation (Routine) - Pending Review Specialty Diagnoses / Procedures Referred By Darby mon Referred To Contact Orthopedic Surgery Diagnoses Chronic pain of both shoulders Lian Dan APRN-CNP [address] [place] [address] Rosales Hylton MD [address] [place] [address] Referral ID Status Reason Start Date Expiration Date Visits Requested Visits Authorized [id number] Pending Review Specialty Services Required 03/30/2023 03/29/2024 1 1 [facility] Summary Purpose Family History No Family History [...] CREATED AUTHOR AUTHOR'S ORGANIZ ATION 06/10/2022 [facility] DATE CREATED AUTHOR AUTHOR'S ORGANIZ ATION 04/09/2023 [facility] DATE CREATED AUTHOR AUTHOR'S ORGANIZ ATION 05/14/2023 [facility] DATE CREATED AUTHOR AUTHOR'S ORGANIZ ATION 06/30/2023 [facility] DATE CREATED AUTHOR AUTHOR'S ORGANIZ ATION 07/16/2023 [facility] EPIC DATE CREATED AUTHOR AUTHOR'S ORGANIZ ATION 10/12/2023 [facility] REASON FOR VISIT (unrecogniz ed section and content) Reason Comments Med Refill Reason Comments Follow-up Follow up shoulders Reason Comments Follow-up Reason Onset Date Comments Med Refill 04/17/2023 Reason Onset Date Comments Med Refill 05/02/2023 Care Teams (unrecognized sec tion and content) Consulting Marine Engineer Relationship Specialty Start Date End Date Carson Sullivan DO [address] [place] [address] PCP - General Family Medicine 02/14/17 Consulting Marine Engineer Relationship Specialty Start Date End Date Carson Sullivan DO [address] [place] [address] PCP - General Family Medicine 02/14/17 Consulting Marine Engineer Relationship Specialty Start Date End Date Carson Sullivan DO [address] [place] [address] PCP - General Family Medicine 02/14/17 Consulting Marine Engineer Relationship Specialty Start Date End Date Carson Sullivan DO [address] [place] [address] PCP - [facility] 02/14/17 Consulting Marine Engineer Relationship Specialty Start Date End Date Carson Sullivan DO [address] [place] [address] PCP - [facility] 02/14/17 Consulting Marine Engineer Relationship Specialty Start Date End Date Carson Sullivan DO [address] [place] [address] PCP - [facility] 02/14/17 Consulting Marine Engineer Relationship Specialty Start Date End Date Carson Sullivan DO [address] [place] [address] PCP - [facility] 02/14/17 FOR RECORDS PERTAINING TO PATIENTS WHO [...] PRIMARY CLINICAL RECORDS. [facility] [employer] [facility]. provides no warranty or guarantee of the accuracy or completeness of information in this document.
--- NOTE | 2023-10-16 14:30 | P.CN_ITS ---
Consult Note: HPI Data of Consult Patient: new to practice Consult date: 10/16/23 Requesting Physician: Diamond Mooney MD Primary Care Provider: ADALGISA DE JESUS Consult Narrative Reason for consult: neck, bilateral shoulder pain Narrative: 78yof who presents for evaluation. longstanding chronic pain history, multiple surgeries in the past. pain in neck, bilateral shoulders, low back. states has undergone injections, ablations, was offered stimulator, but declined. is on oxycodone 5mg qid, but states wears off before next dose. denies adverse med side effects. cc:: CC: Diamond Mooney MD Review of Systems ROS Status of ROS 10 or more systems reviewed and unremark able except as noted in history and below Meds Home Medications and Allergies Allergies Allergy/AdvReac Type Severity Reaction Status Date / Time hydrochlorothiazide Allergy Unknown Unknown Verified 10/16/23 14:30 Qmujcxe-PMX-MtG Reductase Allergy Unknown Unknown Verified 10/16/23 14:30 Inhibitor Sulfa (Sulfonamide Allergy Unknown Unknown Verified 10/16/23 14:30 Antibiotics) Exam Narrative Exam Narrative: Psych-alert and oriented x 3.? Attentive and appropriate, constitutionally normal, displays normal mood and affect per situation.? There are no obvious deficits in memory, reasoning, or intellect.? Skin-no obvious rashes, bruising, or erythema noted to the patient's area of p ain. Extremities-upper extremities are warm with minimal edema and palpable pulses. Cervical- tenderness to palpation noted in the cervical spine and paraspinal musculature.? Pain is elicited with extension, and lateral rotation of the cervical spine.? Range of motion is slightly diminished due to pain. Coordination remains intact.? Gait remains non-antalgic.? Assessment and Plan Assessment and Plan (1) Cervical postlaminectomy syndrome: (2) Lumbar postlaminectomy syndrome: (3) Bilateral shoulder pain: Qualifiers: Chronicity: chronic Qualified Code(s): M25.511 - Pain in right shoulder; M25.512 - Pain in left shoulder; G89.29 - Other chronic pain Plan 78yof who presents for evaluation. failed conservative measures. in terms of her bilateral shoulder pain, she would like referral to orthopedic surgeon for evaluation, so i provided referral to dr. lezama. she is in agreement. meds reviewed. pdmp reviewed. uds obtained. discussed that she would need to stop her ativan, which she uses sparingly. agreed to prescribe oxycodone 5mg 5x/day, but not to exceed. she expressed understanding. follow up in 3 months.
== END 2023-10-16 13:11 | disposition home or self-care (01) ==
PROVIDERS: PCP Family Medicine; Visit Provider Anesthesiology
DX: M96.1 Postlaminectomy syndrome, not elsewhere classified (principal); M25.511 Pain in right shoulder; M25.512 Pain in left shoulder; G89.29 Other chronic pain
CPT/HCPCS: G0463

== ENCOUNTER 2023-10-17 11:24 | Outpatient (OUT) | payer MEDICARE, SELFPAY ==
[2023-10-17 11:45] LABS: Hematocrit 38.7 % (36.0-48.0); Hemoglobin 12.8 g/dL (12.0-16.0); Mean Corpuscular HGB Conc 33.1 g/dL (29.9-35.2); Mean Corpuscular Hemoglobin 32.7 pg (26.7-34.0); Mean Corpuscular Volume 98.7 fL (81.0-99.0); Mean Platelet Volume 9.2 fL (9.5-13.5); Platelet Count 364 10^3/uL (150-450); Red Blood Count 3.92 10^6/uL (4.20-5.40); Red Cell Distribution Width 13.5 % (11.0-15.0); White Blood Count 6.7 10^3/uL (4.0-11.0)
[2023-10-17 11:47] LABS: Bilirubin Urine NEGATIVE (NEGATIVE); Blood Urine NEGATIVE (NEGATIVE); Clarity Urine SL CLOUDY (CLEAR); Color Urine YELLOW (YELLOW); Glucose Urine UA NEGATIVE (NEGATIVE); Ketones Urine TRACE mg/dL (NEGATIVE); Leukocyte Esterase Urine NEGATIVE (NEGATIVE); Nitrite Urine NEGATIVE (NEGATIVE); Protein Urine NEGATIVE (NEG/TRACE); Specific Gravity Urine 1.015 (1.005-1.025); Urobilinogen Urine 0.2 EU/dL (0.2-1.0)
--- OUTSIDE RECORDS SUMMARY | 2023-10-17 11:48 | XMS_ITS | CCD ---
Author Organization [facility] Care Team Providers Care Director Of Knowledge Management Name Role Phone Bri Davis Unavailable NEAL, [...] Unavailable Furlong Carson LEIVA Primary Care Provider Unavailable Primary Care Provider UnavailLIAN Almonte Referring [...] sources) hydroCHLOROthiazide; Translations: [HYDROCHLOROTHIAZIDE] Drug Allergy Itching [facility] (1 source) Sulfonamides (Antibiotic) Drug allergy (disorder) [facility] (13 sources) HMG-CoA reductase inhibitor; Translations: [WAOULKK-IOJ-SCX REDUCTASE INHIBITORS] Propensity to adverse reactions to drug pain [facility] (13 sources) nickel; Translations: [NICKEL] Drug Allergy Rash [facility] (16 sources) Sulfonamides (Antibiotic); Translations: [SULFA (SULFONAMIDE ANTIBIOTICS)] Propensity to adverse reactions to drug Photosensitivity [facility] (3 sources) HMG-CoA reductase inhibitor Drug Allergy [facility] (3 sources) hydroCHLOROthiazide Drug Allergy Itching [facility] (3 sources) nickel sulfate Drug Allergy Rash [facility] (1 source) hydroCHLOROthiazide Drug Allergy 024 [facility] Repository Medications Current Medications Medication [...] a day for 30 day(s) Active B Wzfrcwf-Lckbea-JT (Super B-Complex) tablet (3 sources) B Complex-Biotin [...] 10/20/2022 Active take 1 capsule [facility] daily as needed Benzonatate 200 [...] Once a day for 30 day(s) Not-Taking lalhuip-xyxknchri-wutw 333-133-5 MG per tablet (3 sources) calcium-magnesiu [...] day for 30 day(s) Active lactobacillus acidophilus [id number] unt oral capsule (10 sources) Lactobacillus ac [...] 0 Active take 1 capsule by mo [facility] every twenty-four hours Lutein 6 MG 1 [...] mouth in the morning. 0 05/02/2022 Active hh-gae-ztquo-calcium carb-K1 400 mcg-500 mg calcium-20 mcg tablet (10 sources) Start: 05-02-2022 take 1 tablet by mouth once in the morning hg-btt-hndqm-calcium carb-K1 400 mcg-500 mg calcium-20 mcg tablet [...] skin daily. 30 patch 1 04/28/2023 Active [place] 3 1000 MG (4 sources) take 1 capsule by mouth once daily [place] 3 1000 MG 1 capsule Orally Once [...] [Moles/Vol] 13 mmol/L Normal 5-15 [facility] Comment on above: Performed By: #### B ROBERTO, THYR #### [facility] ([id number]) [address], [address] [place] [address] Calcium [Mass/Vol] 9.9 mg/dL Normal 8.5-10.5 [facility] Comment on above: Performed By: #### B ROBERTO, THYR #### [facility] ([id number]) [address] [place] [address] Chloride [Moles/Vol] 100 mmol/L Normal 98-109 [facility] Comment on above: Performed By: #### B ROBERTO, THYR #### [facility] ([id number]) [address], [address] [place] [address] CO2 [Moles/Vol] 23 mmol/L Normal 22-32 [facility] Comment on above: Performed By: #### B ROBERTO, THYR #### [facility] ([id number]) [address], [address] [place] [address] Creatinine [Mass/Vol] 1.20 mg/dL High 0.40-1.00 [facility] Comment on above: Result Comment: METH OD TRACEABLE TO IDMS STANDARD Performed By: #### B ROBERTO, THYR #### [facility] ([id number]) [address], [address] [place] [address] GFR/1.73 sq M.predicted rosa m g non-blacks MDRD (S/P/Bld) [Vol rate/Area] 47 mL/min/{1.73_m2} Low >59 [facility] Comment on above: Result Comment: Reported eGFR is based on the CKD-EPI 2020 equation that does not use a race coefficient. Performed By: #### B ROBERTO, THYR #### [facility] ([id number]) [address], [address] [place] [address] Glucose [Mass/Vol] 86 mg/dL Normal 65-99 [facility] Comment on above: Performed By: #### B ROBERTO, THYR #### [facility] ([id number]) [address], [address] [place] [address] Potassium [Moles/Vol] 4.3 mmol/L Normal 3.5-5.0 [facility] Comment on above: Performed By: #### B ROBERTO, THYR #### [facility] ([id number]) [address], [address] [place] [address] Sodium [Moles/Vol] 136 mmol/L Normal 134-146 [facility] Comment on above: Performed By: #### B MP, THYR #### [facility] ([id number]) [address], [facility] [[email or web address] [address] [place] [address] Urea nitrogen [Mass/Vol] 26 mg/dL Normal 5-27 [facility] Comment on above: Performed By: #### B MP, THYR #### [facility] ([id number]) [address], [facility] [[email or web address]] [address] [place] [address] THYROID PROFILEon 06-28-2023 Free T4 [Mass/Vol] 1.14 ng/dL Normal 0.61-1.60 [facility] Comment on above: Performed By: #### B MP, THYR #### [facility] ([id number]) [address], [facility] [[email or web address]] [address] [place] [address] TSH 0.81 uIU/mL Normal 0.49-4.67 [facility] Comment on above: Performed By: #### B MP, THYR #### [facility] ([id number]) [address], [address] [address] XR shoulder LT min 2V*on XR shoulder LT min 2V* [facility] [place] [address] XRay Report Signed Patient: Mike Coon MR#: [id number] : 1945 Acct:[id number] Age/Sex: 78 / F ADM Date: 05/11/23 Loc: [facility] Room: Type: [facility] Attending Dr: Aden Baca DO Copies to: [...] Justin Lucas M.D.05/11/2023 2:24 PM Dictation Location: [place] [address] Transcribed By: [facility] 05/11/23 142 Dictated By: Justin Lucas DO 05/11/23 142 Signed By: 05/11/23 1424 [facility] No Panel Informationon 04-07 [facility] DRUG SCREEN, URINEon 024 AMPHETAMINE/METHAMP Negative Normal NEG [facility] Comment on above: Result Comment: AMPH /METH screening cut off = 1000 ng/mL Performed By: #### D HOLT #### [facility] ([id number]) [address], [address] [place] [address] BARBITURATES Negative Normal NEG [facility] Comment on above: Result Comment: Rhonda iturates screening cut off value = 200 ng/mL Performed By: #### D HOLT #### [facility] ([id number]) [address], [address] [place] [address] BENZODIAZEPINES Negative Normal [facility] Comment on above: Result Comment: Guillermo odiazepines screening cut off value = 200 ng/mL Performed By: #### D HOLT #### [facility] ([id number]) [address], [address] [place] [address] CANNABINOIDS Negative Normal NEG [facility] Comment on above: Result Comment: Shanita abinoids/THC screening cut off value = 50 ng/mL Performed By: #### D HOLT #### [facility] ([id number]) [address], [address] [place] [address] COCAINE METABOLITE Negative Normal NEG [facility] Comment on above: Result Comment: Coca ine screening cut off value = 300 ng/mL Performed By: #### D HOLT #### [facility] ([id number]) [address], [address] [place] [address] ECSTASY Negative Normal NEG [facility] Comment on above: Result Comment: Ecst asy screening cut off value = 500 ng/mL This report is intended for use in clinical monitoring or management of patients. Performed By: #### D HOLT #### [facility] ([id number]) [address], [address] [place] [address] METHADONE Negative Normal NEG [facility] Comment on above: Result Comment: Meth adone screening cut off value = 300 ng/mL. Performed By: #### D HOLT #### [facility] ([id number]) [address], [address] [place] [address] OPIATES Positive Abnormal NEG [facility] Comment on above: Result Comment: Conf irmation available upon request. Opiates screening cut off value = 300 ng/mL NOTE: This test is used for the detection of codeine, hydrocodone (>1000 ng/mL), morphine and hydromorphone (>900 ng/mL) in urine. Performed By: #### D HOLT #### [facility] ([id number]) [address], [address] [place] [address] OXYCODONE Negative Normal NEG [facility] Comment on above: Result Comment: Oxyc odone screening cut off value = 300 ng/mL NOTE: This test is used for the detection of oxycodone and oxymorphone in urine. Performed By: #### D HOLT #### [facility] ([id number]) [address], [address] [place] [address] PHENCYCLIDINE Negative Normal [facility] Comment on above: Result Comment: Phen cyclidine screening cut off value = 25 ng/mL Performed By: #### D HOLT #### [facility] ([id number]) [address] [facility], [address] [place] [address] Drug Screen, Urineon 024 Amphetamines Screen method >1000 ng/mL Ql (U) Negative Negative^[facility] Comment on above: AMPH/METH screening cut off = 1000 ng/mL Barbiturates Screen Ql (U) Negative N egative^[facility] Comment on above: Barbiturates screeni ng cut off value = 200 ng/mL Benzodiazepines Ql (U) Negative Negat iggy^[facility] Comment on above: Benzodiazepines scre ening cut off value = 200 ng/mL Cocaine Ql (U) Negative Negative^[facility] Comment on above: Cocaine screening cu t off value = 300 ng/mL Interpretation and review of laboratory results Abnormal [facility] Methadone Screen Ql (U) Negative Nega tive^[facility] Comment on above: Methadone screening cut off value = 300 ng/mL. Methylenedioxymethamphetamin e Screen Ql (U) Negative Negative^[facility] Comment on above: Ecstasy screening cu t off value = 500 ng/mL This report is intended for use in clinical monitoring or management of patients. Opiates Screen Ql (U) Positive Abnormal Negati ve^[facility] Comment on above: Confirmation availab le upon request. Opiates screening cut off value = 300 ng/mL NOTE: This test is used for the detection of codeine, hydrocodone (>1000 ng/mL), morphine and hydromorphone (>900 ng/mL) in urine. oxyCODONE Ql (U) Negative Negative^[facility] Comment on above: Oxycodone screening cut off value = 300 ng/mL NOTE: This test is used for the detection of oxycodone and oxymorphone in urine. Phencyclidine Screen method >25 ng/mL Ql (U) Negative Negative^[facility] Comment on above: Phencyclidine screen ing cut off value = 25 ng/mL Tetrahydrocannabinol Screen method >50 ng/mL Ql (U) Negative Negative^[facility] Comment on above: Cannabinoids/THC scr eening cut off value = 50 ng/mL [facility] PTH INTACTon 06-02-2022 PTH, Intact 14 pg/mL Critically low 15-65 [facility] Comment on above: Performed By: #### P THINT ####[facility] [address] [place], [place] [address]Dr. Neelamandrew Leo HEMOGRAM AND PLATELon 2022 Hematocrit (Bld) [Volume fraction] 32.0 % Critically low 36.0-48.0 [facility] Comment on above: Performed By: #### H H ####[facility] [address] [place] [address]Dr. Ashok Bailey Hemoglobin (Bld) [Mass/Vol] 10.6 g/dL Critically low 12.0 -16.0 [facility] Comment on above: Performed By: #### H H ####[facility] [address] [place], [place] [address]Dr. Ashok Bailey MCH (RBC) [Entitic mass] 31.4 pg Normal 26.7-34.0 [facility] Comment on above: Performed By: #### H H ####[facility] [address] [place], [place] [address]Dr. Ashok Bailey MCHC (RBC) [Mass/Vol] 33.1 g/dL Normal 29.9-35.2 [facility] Comment on above: Performed By: #### H H ####[facility] [address] [place], [place] [address]Dr. Ashok Bailey MCV (RBC) [Entitic vol] 94.7 fL Normal 81.0-99.0 [facility] Comment on above: Performed By: #### H H ####[facility] [address] [place] [address]Dr. Ashok Bailey PLT 345 103/ul Normal 150-[address] [facility] Comment on above: Performed By: #### H H ####[facility] [address] [place] [address]Dr. Ashok Bailey RBC 3.38 106/ul Critically low 4.20-5.40 [facility] Comment on above: Performed By: #### H H ####[facility] [address] [place] [address]Dr. Asohk Leo WBC 8.4 103/ul Normal 4.0-11.0 [facility] Comment on above: Performed By: #### H H ####[facility] [address] [place] [address]Dr. Neelamandrew Bailey MAGNESIUMon 06-01-2022 Magnesium [Mass/Vol] 1.8 mg/dL Normal 1.8-2.4 [facility] Comment on above: Performed By: #### C MP, URIC, MG, PHOS ####[facility] [address] [place] [address]Dr. Neelamandrew Bailey PHOSPHORUSon 06-01-2022 Phosphate [Mass/Vol] 4.0 mg/dL Normal 2.6-4.7 [facility] Comment on above: Performed By: #### C MP, URIC, MG, PHOS ####[facility] [address] [place] [address]Dr. Ashok Bailey PROF 14(COMP METB)on 023 Albumin [Mass/Vol] 3.8 g/dL Normal 3.4-5.0 [facility] Comment on above: Performed By: #### C MP, URIC, MG, PHOS ####[facility] [address] [place] [address]Dr. Ashok Bailey Albumin/Globulin [Mass ratio] 1.1 {ratio} Normal [facility] Comment on above: Performed By: #### C MP, URIC, MG, PHOS ####[facility] [address] [place] [address]Dr. Neelamandrew Bailey ALP [Catalytic activity/Vol] 96 U/L Normal 46-[address] [facility] Comment on above: Performed By: #### C MP, URIC, MG, PHOS ####[facility] [address] [place] [address]Dr. Ashok Bailey ALT [Catalytic activity/Vol] 17 U/L Normal 14-[address] [facility] Comment on above: Performed By: #### C MP, URIC, MG, PHOS ####[facility] [address] [place] [address]Dr. Ashok Bailey Anion gap [Moles/Vol] 15.4 mmol/L Normal Th [facility] Comment on above: Performed By: #### C MP, URIC, MG, PHOS ####[facility] [address] [place] [address]Dr. Ashok Bailey AST [Catalytic activity/Vol] 15 U/L Normal 15-37 [facility] Comment on above: Performed By: #### C MP, URIC, MG, PHOS ####[facility] [address] [place], [place] [address]Dr. Ashok Bailey Bilirubin [Mass/Vol] 0.3 mg/dL Normal 0.2-1.0 [facility] Comment on above: Performed By: #### C MP, URIC, MG, PHOS ####[facility] [address] [place], [place] [address]Dr. Ashok Bailey Calcium [Mass/Vol] 9.1 mg/dL Normal 8.5-10.1 [facility] Comment on above: Performed By: #### C MP, URIC, MG, PHOS ####[facility] [address] [place], [place] [address]Dr. Ashok Bailey Chloride [Moles/Vol] 103 mmol/L Normal 98-107 [facility] Comment on above: Performed By: #### C MP, URIC, MG, PHOS ####[facility] [address] [place], [place] [address]Dr. Ashok Bailey CO2 [Moles/Vol] 24.9 mmol/L Normal 21.0-32.0 [facility] Comment on above: Performed By: #### C MP, URIC, MG, PHOS ####[facility] [address] [place], [place] [address]Dr. Ashok Bailey Creatinine [Mass/Vol] 1.35 mg/dL Critically high 0.55-1.02 [facility] Comment on above: Performed By: #### C MP, URIC, MG, PHOS ####[facility] [address] [place] [address]Dr. Ashok Bailey EGFR-AF GUATEMALAN 46 mL/min/1.73m2 Critically low >=[address] [facility] Comment on above: Performed By: #### C MP, URIC, MG, PHOS ####[facility] [address] [place] [address]Dr. Ashok Bailey EGFR-NON AF GUATEMALAN 38 mL/min/1.73m2 Critically low >=[address] [facility] Comment on above: Performed By: #### C MP, URIC, MG, PHOS ####[facility] [address] [place] [address]Dr. Ashok Bailey Globulin (S) [Mass/Vol] 3.4 g/dL Normal T [facility] Comment on above: Performed By: #### C MP, URIC, MG, PHOS ####[facility] [address] [place], [place] [address]Dr. Ashok Bailey Glucose [Mass/Vol] 86 mg/dL Normal 74-106 [facility] Comment on above: Performed By: #### C MP, URIC, MG, PHOS ####[facility] [address] [place], [place] [address]Dr. Ashok Bailey Potassium [Moles/Vol] 4.3 mmol/L Normal 3.5-5.1 [facility] Comment on above: Performed By: #### C MP, URIC, MG, PHOS ####[facility] [address] [place], [place] [address]Dr. Ashok Bailey Protein [Mass/Vol] 7.2 g/dL Normal 6.4-8.2 [facility] Comment on above: Performed By: #### C MP, URIC, MG, PHOS ####[facility] [address] [place], [place] [address]Dr. Ashok Bailey Sodium [Moles/Vol] 139 mmol/L Normal 136-145 [facility] Comment on above: Performed By: #### C MP, URIC, MG, PHOS ####[facility] [address] [place], [place] [address]Dr. Yilan Bailey Urea nitrogen [Mass/Vol] 20.0 mg/dL Critically high 7.0-18 .0 [facility] Comment on above: Performed By: #### C MP, URIC, MG, PHOS ####[facility] [address] [place] [address]Dr. Ashok Bailey Urea nitrogen/Creatinine [Ma ss ratio] 14.8 mg/mg Normal [facility] Comment on above: Performed By: #### C MP, URIC, MG, PHOS ####[facility] [address] [place] [address]Dr. Ashok Bailey UA RANDOMon 06-01-2022 Bilirubin Ql (U) Negative Normal NEGATIVE [facility] Comment on above: Performed By: #### U A #### [facility] [address] [place] [address] Dr. Ashok Bailey Clarity (U) CLEAR Normal CLEAR [facility] Comment on above: Performed By: #### U A #### [facility] [address] [place] [address] Dr. Ashok Bailey Color (U) LT. YELLOW Normal YELLOW [facility] Comment on above: Performed By: #### U A #### [facility] [address] [place] [address] Dr. Ashok Bailey Glucose Ql (U) Negative Normal NEGATIVE [facility] Comment on above: Performed By: #### U A #### [facility] [address] [place] [address] [address] Ashok Bailey Hemoglobin Ql (U) Negative Normal NEGATIVE [facility] Comment on above: Performed By: #### U A #### [facility] [address] [place] [address] Dr. Ashok Bailey Ketones Ql (U) Negative Normal NEGATIVE [facility] Comment on above: Performed By: #### U A #### [facility] [address] [place] [address] Dr. Ashok Bailey LEUKOCYTES Negative Normal NEGATIVE [facility] Comment on above: Performed By: #### U A #### [facility] [address] [place] [address] Dr. Ashok Bailey Nitrite Ql (U) Negative Normal NEGATIVE [facility] Comment on above: Performed By: #### U A #### [facility] [address] [place] [address] Dr. Ashok Bailey pH (U) 6.0 [pH] Normal 5-9 [facility] Comment on above: Performed By: #### U A #### [facility] [address] [place] [address] Dr. Ashok Bailey SPEC GRAVITY 1.010 Normal 1.005-<=1. 025 [facility] Comment on above: Performed By: #### U A #### [facility] [address] [place] [address] Dr. Ashok Bailey UA PROTEIN Negative Normal NEGATIVE/ TRACE [facility] Comment on above: Performed By: #### U A #### [facility] [address] [place] [address] Dr. Ashok Bailey Urobilinogen Qn (U) 0.2 {Drew'U}/dL Normal 0.2 - 1.0 [facility] Comment on above: Performed By: #### U A #### [facility] [address] [place] [address] Dr. Ashok Bailey URIC ACID SERUMon 06-01-2022 Urate [Mass/Vol] 3.9 mg/dL Normal 2.6-6.0 [facility] Comment on above: Performed By: #### C MP, URIC, MG, PHOS ####[facility] [address] [place] [address]Dr. Ashok Bailey URINE T PROTEIN CREAT RATIOo n 06-01-2022 Protein (U) [Mass/Vol] 14.0 mg/dL Critically high <=12.0 [facility] Comment on above: Performed By: #### U RTPCR #### [facility] [address] [place] [address] Dr. Ashok Bailey UR PROT CREAT RAT 0.28 Normal [facility] Comment on above: Performed By: #### U RTPCR #### [facility] [address] [place] [address] Dr. Ashok Bailey URINE CREAT 50.47 mg/dL Normal 20.00-300. 00 [facility] Comment on above: Performed By: #### U RTPCR #### [facility] [address] [place] [address] [address] Ashok Bailey VITAMIN D 25 OHon 06-01-2022 VIT D 25-OH 19.2 ng/mL Normal [facility] Comment on above: Performed By: #### F T4 #### [facility] [address] [place] [address] [address] Ashok Bailey VIT D RANGES SEE BELOW Normal [facility] Comment on above: Result Comment: <20 ng/mL Vit D deficient 20 - <30 ng/mL Vit D insufficient 30 - 100 ng/mL Vit D sufficient >100 ng/mL Potential Toxicity Performed By: #### F T4 #### [facility] [address] [place] [address] Dr. Ashok Bailey US KIDNEYSon 05-03-2022 US KIDNEYS US KIDNEYS EXAM DATE: 05/03/2022 7:10 AM MST COMPARISON: None available. INDICATION: Stage IV chronic kidney disease. TECHNIQUE: Real-time ultrasound scanning of the kidneys and bladder was performed by the furniture and bedding inspector. [employer] static images are submitted for review. FINDINGS: [...] by: JOBY ESTERNIXON Date: 2022-05-03 12:33 Normal [facility] FREE T4on 03-25-2022 Free T4 [Mass/Vol] 1.26 ng/dL Normal 0.76-1.46 [facility] Comment on above: Performed By: #### F T4 #### [facility] [address] [place] [address] [address] Ashok Bailey PROF CHEM 8 (BAS METB)on Anion gap [Moles/Vol] 17.6 mmol/L Normal [facility] Comment on above: Performed By: #### B MP, TSH ####[facility] [address] [place] [address]Dr. Ashok Bailey Calcium [Mass/Vol] 8.9 mg/dL Normal 8.5-10.1 [facility] Comment on above: Performed By: #### B MP, TSH ####[facility] [address] [place] [address]Dr. Ashok Bailey Chloride [Moles/Vol] 97 mmol/L Critically low 98-107 [facility] Comment on above: Performed By: #### B MP, TSH ####[facility] [address] [place] [address]Dr. Ashok Bailey CO2 [Moles/Vol] 22.2 mmol/L Normal 21.0-32.0 [facility] Comment on above: Performed By: #### B MP, TSH ####[facility] [address] [place] [address]Dr. Ashok Bailey Creatinine [Mass/Vol] 2.42 mg/dL Critically high 0.55-1.02 [facility] Comment on above: Performed By: #### B MP, TSH ####[facility] [address] [place] [address]Dr. Ashok Bailey EGFR-AF GUATEMALAN 24 mL/min/1.73m2 Critically low >=[address] [facility] Comment on above: Performed By: #### B ROBERTO, TSH ####[facility] [address] [place] [address]Dr. Neelamandrew Leo EGFR-NON AF GUATEMALAN 20 mL/min/1.73m2 Critically low >=60 [facility] Comment on above: Performed By: #### B MP, TSH ####[facility] [address] [place] [address]Dr. Ashok Bailey Glucose [Mass/Vol] 84 mg/dL Normal 74-106 [facility] Comment on above: Performed By: #### B ROBERTO, TSH ####[facility] [facility] [id number] [place] [id number]. Ashok Bailey Potassium [Moles/Vol] 4.8 mmol/L Normal 3.5-5.1 [facility] Comment on above: Performed By: #### B ROBERTO, TSH ####[facility] [address] [place] [address]Dr. Ashok Bailey Sodium [Moles/Vol] 132 mmol/L Critically low 136-145 Th [facility] Comment on above: Performed By: #### B ROBERTO, TSH ####[facility] [address] [place] [address]Dr. Ashok Bailey Urea nitrogen [Mass/Vol] 43.0 mg/dL Critically high 7.0-18 .0 [facility] Comment on above: Performed By: #### B ROBERTO, TSH ####[facility] [address] [place] [address]Dr. Ashok Bailey Urea nitrogen/Creatinine [Ma ss ratio] 17.8 mg/mg Normal [facility] Comment on above: Performed By: #### B ROBERTO, TSH ####[facility] [address] [place] [id number]. Ashok Bailey TSHon 03-25-2022 TSH 2.368 uIU/mL Normal 0.358-3.74 0 [facility] Comment on above: Performed By: #### B ROBERTO, TSH ####[facility] [address] [place] [address]Dr. Ashok Bailey CPKon 11-12-2021 CK [Catalytic activity/Vol] 207 U/L Critically high 26- 192 [facility] Comment on above: Performed By: #### C MP, CK, TSH, LIPID #### [facility] [address] [address] [address] Ashok Bailey FREE T4on 11-12-2021 Free T4 [Mass/Vol] 1.16 ng/dL Normal 0.76-1.46 [facility] Comment on above: Performed By: #### F T4 #### [facility] [address] [address] [address] Ashok Bailey LIPID PROFILEon 11-12-2021 CHOL-HDL RATIO NORM SEE BELOW Normal [facility] Comment on above: Result Comment: 3.3 - 4.4 LOW RISK 4.4 - 7.1 AVERAGE RISK 7.1 - 11.0 MODERATE RISK >11.0 HIGH RISK Performed By: #### C MP, CK, TSH, LIPID #### [facility] [address] [address] [address] Ashok Bailey Cholesterol [Mass/Vol] 215 mg/dL Critically high <=200 [facility] Comment on above: Performed By: #### C MP, CK, TSH, LIPID #### [facility] [address] [address] [address] Ashok Bailey Cholesterol in HDL [Mass/Vol] 74 mg/dL Critically high 4 0-60 [facility] Comment on above: Performed By: #### C MP, CK, TSH, LIPID #### [facility] [address] [address] [address] Ashok Bailey Cholesterol in LDL [Mass/Vol] 114.4 mg/dL Normal [facility] Comment on above: Performed By: #### C MP, CK, TSH, LIPID #### [facility] [address] [address] [address] Ashok Bailey Cholesterol.total/Cholestero l in HDL [Mass ratio] 2.9 {ratio} Normal [facility] Comment on above: Performed By: #### C MP, CK, TSH, LIPID #### [facility] [address] [address] [address] Ashok Bailey HDL NORMAL > or = 60 mg/dl - LOW CARDIOVASCULAR RISK <40 mg/dl - HIGH CARDIOVASCULAR RISK Normal [facility] Comment on above: Performed By: #### C MP, CK, TSH, LIPID #### [facility] [address] [address] [address] Ashok Bailey LDL CALC NORMAL SEE BELOW Normal [facility] Comment on above: Result Comment: <100 mg/dl OPTIMAL 100 - 129 mg/dl NEAR OR ABOVE OPTIMAL 130 - 159 mg/dl BORDERLINE HIGH 160 - 189 mg/dl HIGH >190 mg/dl VERY HIGH Performed By: #### C MP, CK, TSH, LIPID #### [facility] [address] [address] [address] Ashok Bailey Triglyceride [Mass/Vol] 133 mg/dL Normal <=150 T [facility] Comment on above: Performed By: #### C MP, CK, TSH, LIPID #### [facility] [address] [address] [address] Ashok Bailey VLDL CALC 26.6 mg/dL Normal [facility] Comment on above: Performed By: #### C MP, CK, TSH, LIPID #### [facility] [address] [address] [address] Ashok Bailey PROF 14(COMP METB)on 022 Albumin [Mass/Vol] 3.9 g/dL Normal 3.4-5.0 [facility] Comment on above: Performed By: #### C MP, CK, TSH, LIPID #### [facility] [address] [place] [address] Dr. Ashok Bailey Albumin/Globulin [Mass ratio] 1.1 {ratio} Normal [facility] Comment on above: Performed By: #### C MP, CK, TSH, LIPID #### [facility] [address] [address] [address] Ashok Bailey ALP [Catalytic activity/Vol] 84 U/L Normal 46-116 [facility] Comment on above: Performed By: #### C MP, CK, TSH, LIPID #### [facility] [address] [place], [place] [id number] Dr. Ashok Bailey ALT [Catalytic activity/Vol] 18 U/L Normal 14-59 [facility] Comment on above: Performed By: #### C MP, CK, TSH, LIPID #### [facility] [address] [place] [address] Dr. Ashok Bailey Anion gap [Moles/Vol] 15.1 mmol/L Normal Th e [facility] Comment on above: Performed By: #### C MP, CK, TSH, LIPID #### [facility] [address] [place] [address] Dr. Ashok Bailey AST [Catalytic activity/Vol] 11 U/L Critically low 15- 37 [facility] Comment on above: Performed By: #### C MP, CK, TSH, LIPID #### [facility] [address] [place] [address] Dr. Ashok Bailey Bilirubin [Mass/Vol] 0.3 mg/dL Normal 0.2-1.0 [facility] Comment on above: Performed By: #### C MP, CK, TSH, LIPID #### [facility] [address] [place] [address] Dr. Ashok Bailey Calcium [Mass/Vol] 9.3 mg/dL Normal 8.5-10.1 [facility] Comment on above: Performed By: #### C MP, CK, TSH, LIPID #### [facility] [address] [place] [address] Dr. Ashok Bialey Chloride [Moles/Vol] 101 mmol/L Normal 98-[address] [facility] Comment on above: Performed By: #### C MP, CK, TSH, LIPID #### [facility] [address] [place] [address] Dr. Ashok Bailey CO2 [Moles/Vol] 22.9 mmol/L Normal 21.0-32.0 [facility] Comment on above: Performed By: #### C MP, CK, TSH, LIPID #### [facility] [address] [place] [address] Dr. Ashok Bailey Creatinine [Mass/Vol] 1.67 mg/dL Critically high 0.55-1.02 [facility] Comment on above: Performed By: #### C MP, CK, TSH, LIPID #### [facility] [address] [place] [address] Dr. Ashok Bailey EGFR-AF GUATEMALAN 36 mL/min/1.73m2 Critically low >=60 [facility] Comment on above: Performed By: #### C MP, CK, TSH, LIPID #### [facility] [address] [place] [address] Dr. Ashok Bailey EGFR-NON AF GUATEMALAN 30 mL/min/1.73m2 Critically low >=60 [facility] Comment on above: Performed By: #### C MP, CK, TSH, LIPID #### [facility] [address] [place] [address] Dr. Ashok Bailey Globulin (S) [Mass/Vol] 3.5 g/dL Normal T [facility] Comment on above: Performed By: #### C MP, CK, TSH, LIPID #### [facility] [address] [place] [address] Dr. Ashok Bailey Glucose [Mass/Vol] 96 mg/dL Normal 74-106 [facility] Comment on above: Performed By: #### C MP, CK, TSH, LIPID #### [facility] [address] [place] [address] Dr. Ashok Bailey Potassium [Moles/Vol] 5.0 mmol/L Normal 3.5-5.1 [facility] Comment on above: Performed By: #### C MP, CK, TSH, LIPID #### [facility] [address] [place] [address] Dr. Ashok Bailey Protein [Mass/Vol] 7.4 g/dL Normal 6.4-8.2 [facility] Comment on above: Performed By: #### C MP, CK, TSH, LIPID #### [facility] [address] [place] [address] Dr. Ashok Bailey Sodium [Moles/Vol] 134 mmol/L Critically low 136-145 Th [facility] Comment on above: Performed By: #### C MP, CK, TSH, LIPID #### [facility] [address] [address] [address] Ashok Bailey Urea nitrogen [Mass/Vol] 27.0 mg/dL Critically high 7.0-18 .0 [facility] Comment on above: Performed By: #### C MP, CK, TSH, LIPID #### [facility] [address] [place], [place] [address] Dr. Ashok Bailey Urea nitrogen/Creatinine [Ma ss ratio] 16.2 mg/mg Normal [facility] Comment on above: Performed By: #### C MP, CK, TSH, LIPID #### [facility] [address] [address] [address] Ashok Bailye TSHon 11-12-2021 TSH 3.073 uIU/mL Normal 0.358-3.74 0 [facility] Comment on above: Performed By: #### C MP, CK, TSH, LIPID #### [facility] [address] [place] [address] Dr. Ashok Bailey COMPREHENSIVE METABOLIC PANE [place] 05-30-2021 Albumin [Mass/Vol] 4.7 g/dL Normal 3.6-5.1 [facility] Comment on above: Performed By: #### 7 600, 14697 #### [facility] [place] [address] Hospital Director: Austin Tobin MD Albumin/Globulin [Mass ratio] 1.8 {ratio} Normal 1.0-2 .5 [facility] Comment on above: Performed By: #### 7 600, 07798 #### [facility] [place] [address] Hospital Director: Austin Tobin MD ALP [Catalytic activity/Vol] 84 U/L Normal 37-153 [facility] Comment on above: Performed By: #### 7 600, 30525 #### [facility] [place] [address] Hospital Director: Austin Tobin MD ALT [Catalytic activity/Vol] 13 U/L Normal 6-29 [facility] Comment on above: Performed By: #### 7 600, 18655 #### [facility] [place] [address] Hospital Director: Austin Tobin MD AST [Catalytic activity/Vol] 12 U/L Normal 10-35 [facility] Comment on above: Performed By: #### 7 600, 06682 #### [facility] of [place] [address] Hospital Director: Austin Tobin MD Bilirubin [Mass/Vol] 0.3 mg/dL Normal 0.2-1.2 [facility] Comment on above: Performed By: #### 7 600, 28419 #### [facility] of [place] [address] Hospital Director: Austin Tobin MD BUN/CREATININE RATIO NOT APPLICABLE Normal 6-22 [facility] Comment on above: Performed By: #### 7 600, 48878 #### [facility] [place] [address] Hospital Director: Austin Tobin MD Calcium [Mass/Vol] 10.2 mg/dL Normal 8.6-10.4 [facility] Comment on above: Performed By: #### 7 600, 47176 #### [facility] [place] [address] Hospital Director: Austin Tobin MD Chloride [Moles/Vol] 99 mmol/L Normal 98-110 [facility] Comment on above: Performed By: #### 7 600, 15876 #### [facility] [place] [address] Hospital Director: Austin Tobin MD CO2 [Moles/Vol] 29 mmol/L Normal 20-32 [facility] Comment on above: Performed By: #### 7 600, 30305 #### [facility] [place] [address] Hospital Director: Austin Tobin MD Creatinine [Mass/Vol] 0.71 mg/dL Normal 0.60-0.93 [facility] Comment on above: Result Comment: For patients >49 years of age, the reference limit for Creatinine is approximately 13% higher for people identified as -English. Performed By: #### 7 600, 67183 #### [facility] [address], [address] [place] [address] Hospital Director: Austin Tobin MD eGFR NON-AFR. GUATEMALAN 84 mL/min/1.73m2 Normal > OR = 60 [facility] Comment on above: Performed By: #### 7 600, 90931 #### [facility] [address], [address] [place] [address] Hospital Director: Austin Tobin MD GFR/1.73 sq M.predicted rosa m rashel anjana MDRD (S/P/Bld) [Vol rate/Area] 97 mL/min/{1.73_m2} Normal > OR = 60 [facility] Comment on above: Performed By: #### 7 600, 54828 #### [facility] [address], [address] [place] [address] Hospital Director: Austin Tobin MD Globulin (S) [Mass/Vol] 2.6 g/dL Normal 1.9-3.7 [facility] Comment on above: Performed By: #### 7 600, 49618 #### [facility] [place] [address] Hospital Director: Austin Tobin MD Glucose [Mass/Vol] 86 mg/dL Normal 65-99 [facility] Comment on above: Result Comment: Fasting reference interval Performed By: #### 7 600, 01758 #### [facility] [place] [address] Hospital Director: Austin Tobin MD Potassium [Moles/Vol] 4.4 mmol/L Normal 3.5-5.[address] [facility] Comment on above: Performed By: #### 7 600, 66930 #### [facility] [place] [address] Hospital Director: Austin Tobin MD Protein [Mass/Vol] 7.3 g/dL Normal 6.1-8.1 [facility] Comment on above: Performed By: #### 7 600, 14716 #### [facility] of [place] [address] Hospital Director: Austin Tobin MD Sodium [Moles/Vol] 135 mmol/L Normal 135-146 [facility] Comment on above: Performed By: #### 7 600, 32731 #### [facility] of [address], [address] [place] [address] Hospital Director: Austin Tobin MD Urea nitrogen [Mass/Vol] 10 mg/dL Normal 7-25 [facility] Comment on above: Performed By: #### 7 600, 04180 #### [facility] [place] [address] Hospital Director: Austin Tobin MD LIPID PANEL, [facility] 05-05 Cholesterol [Mass/Vol] 214 mg/dL High <200 [facility] Comment on above: Performed By: #### 7 600, 92258 #### [facility] [place] [address] Hospital Director: Austin Tobin MD Cholesterol in HDL [Mass/Vol] 85 mg/dL Normal > OR = 50 [facility] Comment on above: Performed By: #### 7 600, 53471 #### [facility] [place] [address] Hospital Director: Austin Tobin MD Cholesterol in LDL [Mass/Vol] [...] LDL-C. Jordan HOU et al. JAUN. 2013;310(19): 0364-5851 (http://education.hiredMYway.com.PV [employer]/faq/TEX478) Performed By: #### 7 600, 66085 #### [facility] [place] [address] Hospital Director: Austin Tobin MD Cholesterol.total/Cholestero l in HDL [Mass ratio] 2.5 {ratio} Normal <5.0 [facility] Comment on above: Performed By: #### 7 600, 58682 #### [facility] [address], [address] [place] [address] Hospital Director: Austin Tobin MD NON HDL CHOLESTEROL 129 mg/dL (calc) Normal <130 [facility] Comment on above: Result Comment: For patients with diabetes plus 1 major ASCVD risk factor, treating to a non-HDL-C goal of <100 mg/dL (LDL-C of <70 mg/dL) is considered a therapeutic option. Performed By: #### 7 600, 48675 #### [facility] [place] [address] Hospital Director: Austin Tobin MD Triglyceride [Mass/Vol] 113 mg/dL Normal <150 [facility] Comment on above: Performed By: #### 7 600, 34028 #### [facility] [place] [address] Hospital Director: Austin Tobin MD [facility] METABOLIC PANE [facility] 05-04-2021 Albumin [Mass/Vol] 4.3 g/dL Normal 3.6-5.1 [facility] Comment on above: Performed By: #### 7 600, 57504 #### [facility] [place] [address] Hospital Director: Austin Tobin MD Albumin/Globulin [Mass ratio] 1.8 {ratio} Normal 1.0-2 .5 [facility] Comment on above: Performed By: #### 7 600, 97951 #### [facility] [place] [address] Hospital Director: Austin Tobin MD ALP [Catalytic activity/Vol] 82 U/L Normal 37-153 [facility] Comment on above: Performed By: #### 7 600, 73713 #### [facility] of [address], [address] [place] [address] Hospital Director: Austin Tobin MD ALT [Catalytic activity/Vol] 11 U/L Normal 6-29 [facility] Comment on above: Performed By: #### 7 600, 33779 #### [facility] of [address], [address] [place] [address] Hospital Director: Austin Tobin MD AST [Catalytic activity/Vol] 12 U/L Normal 10-35 [facility] Comment on above: Performed By: #### 7 600, 56096 #### [facility] of [place] [address] Hospital Director: Austin Tobin MD Bilirubin [Mass/Vol] 0.4 mg/dL Normal 0.2-1.2 [facility] Comment on above: Performed By: #### 7 600, 68189 #### [facility] [place] [address] Hospital Director: Austin Tobin MD BUN/CREATININE RATIO NOT APPLICABLE Normal 6-22 [facility] Comment on above: Performed By: #### 7 600, 61823 #### [facility] [place] [address] Hospital Director: Austin Tobin MD Calcium [Mass/Vol] 9.4 mg/dL Normal 8.6-10.4 [facility] Comment on above: Performed By: #### 7 600, 12517 #### [facility] of [address], [address] [place] [address] Hospital Director: Austin Tobin MD Chloride [Moles/Vol] 98 mmol/L Normal 98-110 [facility] Comment on above: Performed By: #### 7 600, 54219 #### [facility] of [address], [address] [place] [address] Hospital Director: Austin Tobin MD CO2 [Moles/Vol] 28 mmol/L Normal 20-32 [facility] Comment on above: Performed By: #### 7 600, 48144 #### [facility] [address], [address] [place] [address] Hospital Director: Austin Tobin MD Creatinine [Mass/Vol] 0.73 mg/dL Normal 0.60-0.[address] [facility] Comment on above: Result Comment: For patients >49 years of age, the reference limit for Creatinine is approximately 13% higher for people identified as -English. Performed By: #### 7 600, 33766 #### [facility] [address], [address] [place] [address] Hospital Director: Austin Tobin MD eGFR NON-AFR. GUATEMALAN 82 mL/min/1.73m2 Normal > OR = 60 [facility] Comment on above: Performed By: #### 7 600, 26477 #### [facility] [address], [address] [place] [address] Hospital Director: Austin Tobin MD GFR/1.73 sq M.predicted rosa m g blacks MDRD (S/P/Bld) [Vol rate/Area] 95 mL/min/{1.73_m2} Normal > OR = 60 [facility] Comment on above: Performed By: #### 7 600, 66677 #### [facility] [address], [address] [place] [address] Hospital Director: Austin Tobin MD Globulin (S) [Mass/Vol] 2.4 g/dL Normal 1.9-3.7 [facility] Comment on above: Performed By: #### 7 600, 26838 #### [facility] [address], [address] [place] [address] Hospital Director: Austin Tobin MD Glucose [Mass/Vol] 102 mg/dL Normal 65-139 [facility] Comment on above: Result Comment: Non-fasting reference interval For someone without known diabetes, a glucose value between 100 and 125 mg/dL is consistent with prediabetes and should be confirmed with a follow-up test. Performed By: #### 7 600, 41971 #### [facility] of [address], [address] [place] [address] Hospital Director: Austin Tobin MD Potassium [Moles/Vol] 4.3 mmol/L Normal 3.5-5.3 [facility] Comment on above: Performed By: #### 7 600, 16044 #### [facility] of [address], [address] [place] [address] Hospital Director: Austin Tobin MD Protein [Mass/Vol] 6.7 g/dL Normal 6.1-8.1 [facility] Comment on above: Performed By: #### 7 600, 83550 #### [facility] of [address], [address] [place] [address] Hospital Director: Austin Tobin MD Sodium [Moles/Vol] 132 mmol/L Low 135-146 [facility] Comment on above: Performed By: #### 7 600, 78476 #### [facility] of [address], [address] [place] [address] Hospital Director: Austin Tobin MD Urea nitrogen [Mass/Vol] 12 mg/dL Normal 7-25 [facility] Comment on above: Performed By: #### 7 600, 99809 #### [facility] of [address], [address] [place] [address] Hospital Director: Austin Tobin MD LIPID PANEL, [facility] 03-0 Cholesterol [Mass/Vol] 168 mg/dL Normal <200 [facility] Comment on above: Order Comment: FASTI NG:NO FASTING: NO Performed By: #### 7 600, 86343 #### [facility] of [address], [address] [place] [address] Hospital Director: Austin Tobin MD Cholesterol in HDL [Mass/Vol] 79 mg/dL Normal > OR = 50 [facility] Comment on above: Order Comment: FASTI NG:NO FASTING: NO Performed By: #### 7 600, 27703 #### [facility] of [address], [address] [place] [address] Hospital Director: Austin Tobin MD Cholesterol in LDL [Mass/Vol] [...] LDL-C. Jordan SS et al. JAUN. 2013;310(19): 2632-5135 (http://education.[employer]/faq/XPL620) Performed By: #### 7 600, 25421 #### [facility] [address], [address] [place] [address] Hospital Director: Austin Tobin MD Cholesterol.total/Cholestero l in HDL [Mass ratio] 2.1 {ratio} Normal <5.0 [facility] Comment on above: Order Comment: FASTI NG:NO FASTING: NO Performed By: #### 7 600, 69967 #### [facility] [address], [address] [place] [address] Hospital Director: Austin Tobin MD NON HDL CHOLESTEROL 89 mg/dL (calc) Normal <130 [facility] Comment on above: Order Comment: FASTI NG:NO FASTING: NO Result Comment: For patients with diabetes plus 1 major ASCVD risk factor, treating to a non-HDL-C goal of <100 mg/dL (LDL-C of <70 mg/dL) is considered a therapeutic option. Performed By: #### 7 600, 04576 #### [facility] [address], [address] [place] [address] Hospital Director: Austin Tobin MD Triglyceride [Mass/Vol] 79 mg/dL Normal <150 [facility] Comment on above: Order Comment: FASTI NG:NO FASTING: NO Performed By: #### 7 600, 38537 #### [facility] [address], [address] [place] [address] Hospital Director: Austin Tobin MD Vital Signs Date Time Vital Sign Value Performing Clinician Facility 03-30-2023 08:33-0500 Body height 160 cm Lian Dan [employer] Work Phone: [facility] 03-30-2023 08:33-0500 Body mass index (BMI) [Ratio] 24.66 kg/m2 Lian Dan [employer] Work Phone: [facility] 03-30-2023 08:33-0500 Body temperature 97.9 [degF] Lian Dan [employer]CH[employer] Work Phone: [facility] 03-30-2023 08:33-0500 Body weight 63.14 kg Lian Dan [employer] Work Phone: [facility] 03-30-2023 08:33-0500 Diastolic blood pressure 58 mm[Hg] Lian Dan [employer] Work Phone: [facility] 03-30-2023 08:33-0500 Heart rate 78 /min Lian Dan [employer] Work Phone: [facility] 03-30-2023 08:33-0500 SaO2% (BldA) [Mass fraction] 100 % Lian Dan [employer] Work Phone: [facility] 03-30-2023 08:33-0500 Systolic blood pressure 118 mm[Hg] Lian Dan [employer] Work Phone: [facility] 03-28-2023 11:20-0500 Body height 160.02 cm [employer] Other [employer] Other 03-28-2023 11:20-0500 Body mass index (BMI) [Ratio] 24.83 kg/m2 [employer] Other [employer] Other 03-28-2023 11:20-0500 Body temperature 96.9 [degF] Aziz Bakhous Other [employer] Other 03-28-2023 11:20-0500 Body weight 63.59 kg Aziz Bakhous Other [employer] Other 03-28-2023 11:20-0500 Diastolic blood pressure 70 mm[Hg] Aziz Bakhous Other [employer] Other 03-28-2023 11:20-0500 Systolic blood pressure 138 mm[Hg] Aziz Bakhous Other [employer] Other 10-11-2022 14:20-0400 Body height 160.02 cm Aziz Bakhous Other [employer] Other 10-11-2022 14:20-0400 Body mass index (BMI) [Ratio] 24.8 kg/m2 Aziz Bakhous Other [employer] Other 10-11-2022 14:20-0400 Body temperature 96.4 [degF] Aziz Bakhous Other [employer] Other 10-11-2022 14:20-0400 Body weight 63.5 kg Aziz Bakhous Other [employer] Other 10-11-2022 14:20-0400 Diastolic blood pressure 60 mm[Hg] Aziz Bakhous Other [employer] Other 10-11-2022 14:20-0400 Respiratory rate 18 /min Aziz Bakhous Other [employer] Other 10-11-2022 14:20-0400 Systolic blood pressure 130 mm[Hg] Aziz Bakhous Other [employer] Other 06-07-2022 10:20-0400 Body height 160.02 cm Aziz Bakhous Other [employer] Other 06-07-2022 10:20-0400 Body mass index (BMI) [Ratio] 24.55 kg/m2 Aziz Bakhous Other [employer] Other 06-07-2022 10:20-0400 Body temperature 97.2 [degF] Aziz Bakhous Other [employer] Other 06-07-2022 10:20-0400 Body weight 62.87 kg Azlokesh Bakhous Other [employer] Other 06-07-2022 10:20-0400 Diastolic blood pressure 72 mm[Hg] Aziz Bakhous Other [employer] Other 06-07-2022 10:20-0400 Respiratory rate 18 /min Azlokesh Bakhous Other [employer] Other 06-07-2022 10:20-0400 SaO2% (BldA) [Mass fraction] 97 % Aziz Bakhous Other [employer] Other 06-07-2022 10:20-0400 Systolic blood pressure 130 mm[Hg] Aziz Bakhous Other [employer] Other 04-26-2022 09:40-0500 Body height Aziz Bakhous Other [employer] Other 04-26-2022 09:40-0500 Body mass index (BMI) [Ratio] 24.97 kg/m2 Bri Davis Other [employer] Other 04-26-2022 09:40-0500 Body weight 63.96 kg Bri Davis Other [employer] Other 04-26-2022 09:40-0500 Diastolic blood pressure 84 mm[Hg] Bri Davis Other [employer] Other 04-26-2022 09:40-0500 SaO2% (BldA) [Mass fraction] 98 % Bri Davis Other [employer] Other 04-26-2022 09:40-0500 Systolic blood pressure 150 mm[Hg] Bri Davis Other [employer] Other Encounters Encounter Date Encounter Type Care Provider Facility Start: 10-10-2023 End: 10-10-2023 ambulatory [facility] Start: 09-26-2023 End: 09-26-2023 ambulatory [facility] Start: 07-14-2023 End: 07-14-2023 ambulatory YULIA HERNÁNDEZ Not Available Start: 06-28-2023 End: 06-29-2023 ambulatory [facility] Start: 06-28-2023 End: 06-28-2023 ambulatory [facility] Start: 06-03-2023 Orders [facility] Comment on above: Special screening fo r malignant neoplasm of colon (Primary Dx) Start: 05-29-2023 Refill Farnaz Bennett [facility] Comment on above: 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 Start: 05-19-2023 End: 05-19-2023 ambulatory YULIA HERNÁNDEZ Not Available Start: 2023 End: 2023 ambulatory Adendragan Laraley Facility:[facility] Start: 05-02-2023 Refill Trixie Jeremy SPECIAL ED ASSISTANT Evangelist [facility] - [facility] Comment on above: 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 Start: 04-29-2023 Refill Lian Michelle Ni DIESEL POWER MECHANIC-MANAGER HOME [employer]OVEMENT Work Phone: [facility] Start: 04-28-2023 End: 04-28-2023 ambulatory [facility] Start: 04-17-2023 Refill Trixie Jeremy SPECIAL ED ASSISTANT Evangelist gomez [facility] Internal Medicine - Family [...] rimary Dx) Start: 03-31-2023 End: 04-01-2023 ambulatory [facility] Start: 03-30-2023 End: 03-30-2023 Office outpatient visit 15 minutes Lian Dan DIESEL POWER MECHANIC-MANAGER HOME [employer] Work [facility]: [facility] Comment on above: Chronic pain of both shoulders (Primary Dx); Peripheral vascular disease ([facility]); Stage 3b chronic kidney disease ([facility]); Smoker; Lumbosacral spondylosis without myelopathy Start: 03-30-2023 End: 03-30-2023 ambulatory [facility] Start: 03-28-2023 End: 03-28-2023 ambulatory Aziz Bakhous Other [employer] Other Start: 03-28-2023 Office outpatient vi sit 25 minutes Aziz Bakhous [facility] Start: 03-20-2023 Refill Carson cordero DO Work Phone: [facility] - [facility] Start: 03-10-2023 End: 03-10-2023 ambulatory YULIA HERNÁNDEZ Not Available Start: 03-07-2023 End: 04-06-2023 ambulatory [facility] Start: 03-03-2023 Orders Only [facility] DIESEL POWER MECHANIC-MANAGER HOME IM[employer]OVEMENT Work Phone: [facility] - [facility] Start: 03-02-2023 Refill Farnaz Bennett CMA [facility] Comment on above: 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 Start: 02-20-2023 End: 03-06-2023 ambulatory [facility] Start: 10-11-2022 End: 10-11-2022 ambulatory Aziz Bakhous Other [employer] Other Start: 10-11-2022 Office outpatient vi sit 25 minutes Aziz Bakhous [facility] Start: 06-07-2022 End: 06-07-2022 ambulatory Aziz Bakhous Other [employer] Other Start: 06-07-2022 Patient encounter procedure Aziz Bakhous [facility] Start: 06-01-2022 End: 06-02-2022 ambulatory AZIZ BAKHOUS Facility:[facility] Start: 05-03-2022 End: 05-04-2022 ambulatory AZIZ BAKHOUS Facility:[facility] Start: 04-26-2022 End: 04-26-2022 ambulatory Aziz Bakhous Other [facility] [employer] Other Start: 04-26-2022 Office outpatient ne w 30 minutes Bri MCNEILL [facility] Start: 03-25-2022 End: 03-26-[address] CARSON SULLIVAN Facility:[facility] Start: 11-12-2021 End: 11-13-[address] CARSON SULLIVAN Facility:[facility] Start: 11-04-2021 End: 11-04-2021 ambulatory SABRINA MANUEL Facility:[facility] Start: 10-07-2021 End: 10-07-2021 ambulatory SABRINA MANUEL Facility:[facility] Procedures Date Procedure Procedure Detail Performing Clinician Start: 04-28-2023 Adult depression scr eening assessment Lian Dan DIESEL POWER MECHANIC-MANAGER HOME [employer]OVEMENT Work Phone: Start: 04-07-2023 CRYOTHERAPY SKIN LESION Yulia FOSTER Work Phone: Start: 03-30-2023 Follow-up visit Follow-up LIAN DAN Start: 03-30-2023 Adult depression scr eening assessment Lian Dan DIESEL POWER MECHANIC-MANAGER HOME [employer]OV[employer] Work Phone: Start: 02-09-2023 Adult depression scr eening assessment Lian Dan DIESEL POWER MECHANIC-MANAGER HOME [employer] Work Phone: Plan of Treatment Date Care Activity Detail Author Start: 04-28-2024 Adult BMI Screening Adult BMI Screen ing [facility] Start: 04-28-2024 Depression Screening Depression Scre ening [facility] Start: 04-28-2024 Fall Risk Screening Fall Risk Screen ing [facility] Start: 04-28-2024 Tobacco Screening Tobacco Screening [facility] Start: 04-10-2024 DTaP,Tdap and Td Vac cines (2 - Td or Tdap) DTaP,Tdap and Td Vaccines (2 - Td or Tdap) [facility] Start: 03-30-2024 Adult BMI Screening Adult BMI Screen ing [facility] Start: 03-30-2024 Depression Screening Depression Scre ening [facility] Start: 03-30-2024 Fall Risk Screening Fall Risk Screen ing [facility] Start: 03-30-2024 Tobacco Screening Tobacco Screening [facility] Start: 02-10-2024 Adult BMI Screening Adult BMI Screen ing [facility] Start: 02-10-2024 Depression Screening Depression Scre ening [facility] Start: 02-10-2024 Fall Risk Screening Fall Risk Screen ing [facility] Start: 02-10-2024 Tobacco Screening Tobacco Screening [facility] Start: 08-17-2023 End: 08-17-2023 Patient encounter procedure 08/17/2023 11:40 AM EDT Office Visit [facility] - [facility] [address] [place] [address] [facility] Start: 08-03-2023 Medicare Annual Well ness Visit Medicare Annual Wellness Visit [facility] Start: 07-19-2023 Administration of varicella zoster vaccine Zoster (Shingles) Vaccine (1 of 2) [facility] Comment on above: Postponed from 05/10 (Patient Refused) Start: 05-19-2023 End: 05-19-2023 Patient encounter procedure 05/19/2023 11:50 AM EDT Office Visit [facility] [address] [place] [address] Yulia Hernández PA [address] [place] [address] [facility] Start: 04-07-2023 End: 04-07-2023 Patient encounter procedure 04/07/2023 10:20 AM EST Office Visit [facility] [address] [place] [id number] Yulia Hernández PA [address] [place] [address] Arrived [facility] Comment on above: [...] of both shoulders Expected: 03/30/2023, Expires: 03/30/[address] [facility] Comment on above: Expected: 03/30/2023 , Expires: 03/30/2024 Start: 03-07-2023 End: 03-07-2023 Patient encounter procedure 03/07/2023 2:00 PM EST Appointment [facility] [address] [place] [address] [facility] Start: 02-03-2023 Screening for malign ant neoplasm of colon Colon Cancer Screening 3 Year Cologuard [facility] Start: [birth year]10-1963 Adult BMI Follow Up Plan Adult BMI Follow Up Plan [facility] Start: 1945 Tobacco Counseling Tobacco Counselin g [facility] Cologuard [facility] Colog[facility] d [facility] Lab Routine Special screening for malignant neoplasm of colon Ordered: 06/03/2023 [facility] Work Phone: Comment on above: Ordered: 06/03/2023 Immunizations Immunization Date Immunization Notes Care Provider Bonnie ramirez 02-09-2023 Influenza Vaccine, Quadrivalent, Adjuvanted Lian Ni DIESEL POWER MECHANIC-MANAGER HOME [employer]OVEMENT Work Phone: [facility] 12-04-2020 influenza, high dose seasonal, preservative-free Lian Ni DIESEL POWER MECHANIC-MANAGER HOME [employer]OVEMENT Work Phone: 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 05-18-2019 Seasonal trivalent influenza vaccine, adjuvanted, preservative free Lian Ni DIESEL POWER MECHANIC-MANAGER HOME [employer]PROVEMENT Work Phone: [facility] 11-19-2018 Seasonal trivalent influenza vaccine, adjuvanted, preservative free Lian Ni DIESEL POWER MECHANIC-MANAGER HOME [employer]PROVEMENT Work Phone: [facility] 11-20-2017 influenza, injectabl e, quadrivalent, contains preservative Lian Ni DIESEL POWER MECHANIC-MANAGER HOME [employer]OVEMENT Work Phone: [facility] 11-20-2017 Seasonal trivalent influenza vaccine, adjuvanted, preservative free Lian Ni DIESEL POWER MECHANIC-MANAGER HOME [employer]OVEMENT Work Phone: [facility] 11-25-2016 influenza, injectabl e, quadrivalent, preservative free Lian Ni DIESEL POWER MECHANIC-MANAGER HOME [employer]OV[employer] Work Phone: [facility] 11-25-2016 influenza, seasonal, injectable Lian Ni DIESEL POWER MECHANIC-MANAGER HOME [employer]OVEMENT Work Phone: [facility] 03-14-2016 pneumococcal polysaccharide vaccine, 23 valent Lian Ni DIESEL POWER MECHANIC-MANAGER HOME [employer] Work Phone: [facility] 12-10-2015 influenza, high dose seasonal, preservative-free Lian Ni DIESEL POWER MECHANIC-MANAGER HOME [employer]OVEMENT Work Phone: [facility] 03-10-2015 pneumococcal conjuga te vaccine, 13 valent Lian Ni DIESEL POWER MECHANIC-MANAGER HOME [employer]PROVEMENT Work Phone: [facility] 12-08-2014 influenza, seasonal, injectable, preservative free Lian Ni DIESEL POWER MECHANIC-MANAGER HOME [employer] Work Phone: [facility] 04-10-2014 tetanus toxoid, redu savanna diphtheria toxoid, and acellular pertussis vaccine, adsorbed Lian Ni DIESEL POWER MECHANIC-MANAGER HOME [employer]OVEMENT Work Phone: [facility] 12-23-2013 influenza virus vacc ine, unspecified formulation Lian Ni DIESEL POWER MECHANIC-MANAGER HOME [employer]OVEMENT Work Phone: [facility] 01-28-2013 pneumococcal conjuga te vaccine, 13 valent Lian Ni DIESEL POWER MECHANIC-[facility] Work Phone: [facility] Payers Date Payer Category Payer Self-pay 2013 Medicare [id number] 1959 Medicare [id number] 2.16. [id number] 1945 Unknown [id number] 2.16.84 0.1.051088.3.579.2.593 1947 Unknown [id number] 2.16.84 0.1.024311.3.579.2.593 1947 Unknown [id number] 2.16.84 0.1.487404.3.579.2.593 1947 Unknown [id number] 2.16.84 0.1.751713.3.579.2.593 1947 Unknown [id number] 2.16.84 0.1.952644.3.579.2.593 1947 Unknown [id number] 2.16.84 0.1.759668.3.579.2.593 1947 Unknown [id number] 2.16.8 40.1.290304.3.579.2.1286 1947 Unknown [id number] 2.16.84 0.1.797064.3.579.2.1286 1947 Unknown [id number] 2.16.8 40.1.718700.3.579.2.1286 1947 Unknown [id number] 2.16.8 40.1.988719.3.579.2.1286 1947 Unknown [id number] 2.16.84 0.1.168556.3.579.2.1259 1947 Unknown [id number] 2.16.84 0.1.445191.3.579.2.1259 1947 Unknown [id number] 2.16.84 0.1.205855.3.579.2.1259 1947 Unknown [id number] 2.16.840 .1.617726.3.579.2.1259 1947 Unknown [id number] 2.16.8 40.1.504663.3.579.2.1286 1947 Unknown [id number] 2.16.8 40.1.260428.3.579.2.1286 1947 Unknown [id number] 2.16.8 40.1.440573.3.579.2.1286 1947 Unknown [id number] 2.16.8 40.1.326461.3.579.2.1286 1947 Unknown [id number] 2.16.8 40.1.357198.3.579.2.1286 Unknown [id number] 2.16.8 40.1.160765.3.579.2.531 Social History Date Type Detail Facility Start: 07-18-2022 End: 08-02-2022 Sex Assigned At [facility] Start: 11-16-2021 Tobacco smoking status SCIS Smokes tobacco daily [facility] History of tobacco use Cigarette Smoker P [facility] Start: 11-16-2021 End: 07-18-2022 Cigarettes smoked current (pack per day) - Reported [address] [facility] Start: 11-16-2021 Tobacco use and exposure Smokeless tobacco non-user [facility] Start: 02-09-2023 End: 04-28-2023 Alcohol intake Lifetime non-drinker (finding) [facility] Do you belong to any clubs or organizations such as taoism groups, unions, fraternal or athletic groups, or school groups? No [facility] Are you now , , , , never or living with a partner? [facility] How often to you hav e a drink containing alcohol? Monthly or less [facility] How many standard dr inks containing alcohol do you have on a typical day? 1 or 2 [facility] How often do you hav e 6 or more drinks on 1 occasion? Never [facility] How hard is it for y ou to pay for the very basics like food, housing, medical care, and heating Not hard at all [facility] Do you feel stress - tense, restless, nervous, or anxious, or unable to sleep at night because your mind is troubled all the time - these days [OSQ] Only a little [email or web address] Start: 1945 Sex Assigned At Not on file [facility] Start: 03-10-2023 Tobacco smoking status SCIS Tobacco smoking consumption unknown [facility] Clinical Notes 10-07-2021 to 04-07-2023 KRISTIN Contreras [...] limited to risks of scarring, darker or electronic news gathering camera person pigmentary changes, recurrence, incomplete removal and infection. 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 The pain has been going on for [...] Hyperlipidemia Hypokalemia Migraine Osteopenia Peripheral vascular disease ([facility]) Screen for colon cancer 02/04/2020 cologuard-negative Spinal [...] by mouth every morning 90 tablet 1 ys-xjb-wqzoa-calcium carb-K1 400 mcg-500 mg calcium-20 mcg tablet [...] or hospitalization) Allergies: Sulfa (sulfonamide antibiotics), Hydrochlorothiazide, Ymyxrju-ubn-ogc reductase inhibitors, and Nickel Tobacco History: Social [...] Drug Screen, Urine; Future Peripheral vascular disease ([facility]) Stage 3b chronic kidney disease ([facility]) Smoker Follow-up: Will obtain new x-rays bilateral shoulders, order sent to [facility]. Agree with stopping physical therapy if it is not making the pain any better. Patient would like a referral to Orthopedics in [place], this was placed in system. She should [...] file.Pt is due for refill 2/3 - [facility] Rx placed for this specific date. At next appt, consider lowering dose to lowest effective dose to help control pain. NIRANJAN HERRERA APRN-CNP 04/02/23 1244 documented in this encounter [facility]-28-2023 Evaluation note Encounter Date Diagnosis Assessment [...] WNL I asked the patient to continue owtl-vqo-yfuaexz vitamin D supplement 1999Mar, Nephrolithiasis (ICD-10 - N20.0) Renal ultrasound shows nonobstructive bilateral renal calculi which are small in size. I asked the patient to continue ample water intake [email or web address] Other 12-29-2023 History of Present illness Narrative* NIRANJAN Herrera - 03/03/2023 1:29 PM EST The OARRS/MAPPS database was reviewed today and found to be appropriate. No indication of medication diversion, or non compliance. Pt is due for refill 03/11/22, last filled 02/08/[address] Sullivan who is out of town. NIRANJAN Herrera 03/03/23 1332 [facility] Miscellaneous Notes* Telephone Encounter - Farnaz Bennett CMA - 03/02/2023 2:51 PM EST Pt called and would like a refill on her NORCO. Pharmacy is listed and correct. * Telephone Encounter - NIRANJAN Herrera - 03/02/2023 2:51 PM EST Pt is due for refill 03/11 - I will send but pharmacy will not fill until this time [facility] Telephone encounter Note* Telephone Encounter - Farnaz Bennett CMA - 03/02/2023 2:51 PM EST Pt called and would like a refill on her NORCO. Pharmacy is listed and correct. [facility]12-28-2023 Telephone encounter Note* Telephone Encounter - NIRANJAN Herrera - 03/02/2023 2:51 PM EST Pt is due for refill 03/11 - I will send but pharmacy will not fill until this time [facility]08-08-2023 Evaluation note* Encounter Date Diagnosis [...] WNL I asked the patient to continue aytk-buk-geuwefm vitamin D supplement 1999Oct, Nephrolithiasis (ICD-10 - N20.0) Renal ultrasound shows nonobstructive bilateral renal calculi which are small in size. I asked the patient to continue ample water intake [employer] Other 04-04-2023 Evaluation note* Encounter Date Diagnosis [...] is low at 19. I patient with hdgc-rsx-udiyudm vitamin D supplement 1999Jun, Nephrolithiasis (ICD-10 - N20.0) Renal ultrasound shows nonobstructive bilateral renal calculi which are small in size. I asked the patient to continue ample water intake [employer] Other 02-21-2023 Evaluation note* Encounter Date Diagnosis [...] at home and to follow low-salt diet [email or web address] Other 09-01-2022 NoteOPERATIVE NOTE OPERATION DATE: 11/04/2021 [...] ensuring mobility, phacoemulsification was performed in a sxnftnz-cgj-wmpldn-type fashion. After all nuclear material had been [...] the following day for postoperative care.[facility] [id number] NoteHISTORY AND PHYSICAL EXAMINATION Date:11/03/2021 HISTORY: Patient [...] decline other than that of cataract. 2. [id number]-74-Bia patient was briefed in the office and [...] go forward with this elective procedure.[facility] [id number] NoteOPERATIVE NOTE OPERATION DATE: 10/07/2021 SURGEON: Sabrina [...] ensuring mobility, phacoemulsification was performed in a vbdxmhn-aae-dxwysw-type fashion. After all nuclear material had been [...] the following day for postoperative care.[facility] 10-07-2021 NoteHISTORY AND PHYSICAL EXAMINATION Date:10/06/2021 [...] decline other than that of cataract. 2. [id number]-60-Cfn patient was briefed in the office and [...] go forward with this elective procedure.[facility]* Diagnosis Lumbosacral spondylosis without myelopathy [facility] this encounter [facility]* Diagnosis Chronic pain of both shoulders- Primary Peripheral vascular disease ([facility]) Unspecified peripheral vascular disease Stage 3b chronic kidney disease ([facility]) Smoker Tobacco use disorder Lumbosacral spondylosis without myelopathy documented in this encounter [facility]* Diagnosis Actinic keratosis- Primary [facility]* Diagnosis Essential hypertension Unspecified essential hypertension documented in this encounter [facility]* Diagnosis Lumbosacral spondylosis without myelopathy [facility] encounter [facility]* Diagnosis Special screening for malignant neoplasm of colon- Primary Special screening for malignant neoplasms, colon documented in this encounter [facility]* Diagnosis Lumbosacral spondylosis without myelopathy documented [facility] this encounter [facility] general Narrative - Reported* Type [...] surgery -11/2021 Hospitalization History See Sx Hx [email or web address] Other History general Narrative - Reported* Type [...] ON NOSE Hospitalization History See Sx Hx [employer] Other InstructionsNot on filedocumented in this encounter [employer] SystemInstructionsNot on filedocumented in this encounter [facility] SystemInstructionsNot on filedocumented in this encounter [employer] SystemInstructionsNot on filedocumented in this encounter [employer] SystemInstructions* Attachments The following attachments cannot be sent through Care Everywhere. * Shoulder Pain Discharge Instructions (Kiswahili) documented in this encounterProCloudCase SystemInstructionsNot on file documented in this encounterProCloudCase SystemInstructionsNot on file documented in this encounterProCloudCase SystemInstructionsNot on file documented in this encounterProCloudCase SystemReason for referral (narrative)* Consultation (Routine) - Pending Review Specialty Diagnoses / Procedures Referred By aDrby mon Referred To Contact Orthopedic Surgery Diagnoses Chronic pain of both shoulders Lian Dan APRN-CNP [address] [place] [address] Rosales Hylton MD [address] [place] [address] Referral ID Status Reason Start Date Expiration Date Visits Requested Visits Authorized [id number] Pending Review Specialty Services Required 03/30/2023 03/29/2024 1 1 [employer] Summary Purpose Family History No Family History [...] CREATED AUTHOR AUTHOR'S ORGANIZ ATION 06/10/2022 [facility] DATE CREATED AUTHOR AUTHOR'S ORGANIZ ATION 04/09/2023 [facility] DATE CREATED AUTHOR AUTHOR'S ORGANIZ ATION 05/14/2023 [facility] DATE CREATED AUTHOR AUTHOR'S ORGANIZ ATION 06/30/2023 [facility] DATE CREATED AUTHOR AUTHOR'S ORGANIZ ATION 07/16/2023 [facility] EPIC DATE CREATED AUTHOR AUTHOR'S ORGANIZ ATION 10/12/2023 [facility] REASON FOR VISIT (unrecogniz ed section and content) Reason Comments Med Refill Reason Comments Follow-up Follow up shoulders Reason Comments Follow-up Reason Onset Date Comments Med Refill 04/17/2023 Reason Onset Date Comments Med Refill 05/02/2023 Care Teams (unrecognized sec tion and content) Director Of Knowledge Management Relationship Specialty Start Date End Date Carson Sullivan DO [address] [place] [address] PCP - General Family Medicine 02/14/17 Director Of Knowledge Management Relationship Specialty Start Date End Date Carson Sullivan DO [address] [place] [address] PCP - General Family Medicine 02/14/17 Director Of Knowledge Management Relationship Specialty Start Date End Date Carson Sullivan DO [address], [place] [address] PCP - General Family Medicine 02/14/17 Director Of Knowledge Management Relationship Specialty Start Date End Date Carson Sullivan DO [address], [place] [address] PCP - [facility] 02/14/17 Director Of Knowledge Management Relationship Specialty Start Date End Date Carson Sullivan DO [address] [place] [address] PCP - [facility] 02/14/17 Director Of Knowledge Management Relationship Specialty Start Date End Date Carson Sullivan DO [address] [place] [address] PCP - [facility] 02/14/17 Director Of Knowledge Management Relationship Specialty Start Date End Date Carson Sullivan DO [address], [place] [address] PCP - [facility] 02/14/17 FOR RECORDS PERTAINING TO PATIENTS WHO [...] BE BASED ON THE PRIMARY CLINICAL RECORDS. [facility] [employer] [facility]. provides no warranty or guarantee of the accuracy or completeness of information in this document.
[2023-10-17 12:21] LABS: Alanine Aminotransferase 23 U/L (14-59); Albumin Globulin Ratio 1.2; Alkaline Phosphatase 94 U/L (46-116); Anion Gap 10.9; Aspartate Amino Transferase 10 U/L (15-37); BUN Creatinine Ratio 16.5; Bilirubin Total 0.4 mg/dL (0.2-1.0); Calcium 9.3 mg/dL (8.5-10.1); Carbon Dioxide 26.8 mmol/L (21.0-32.0); Chloride 96 mmol/L (98-107); Estimated GFR (African America 52 (>=60); Estimated GFR (Non-African Ame 43 (>=60); Globulin 3.4 g/dL; Glucose 109 mg/dL (74-106); Potassium 3.7 mmol/L (3.5-5.1); Sodium 130 mmol/L (136-145); Total Protein 7.4 g/dL (6.4-8.2)
[2023-10-17 13:05] LABS: Creatinine Urine Random 116.48 mg/dL (20.00-300.00); Total Protein Urine Random 23.3 mg/dL (<=11.9)
[2023-10-18 10:17] LABS: PTH, Intact 24 pg/mL (15-65)
== END 2023-10-17 11:25 | disposition home or self-care (01) ==
PROVIDERS: PCP Family Medicine; Visit Provider Internal Medicine Nephrology
DX: D64.9 Anemia, unspecified (principal); I12.9 Hypertensive chronic kidney disease with stage 1 through stage 4 chronic kidney disease, or unspecified chronic kidney disease; N18.31 Chronic kidney disease, stage 3a; E55.9 Vitamin D deficiency, unspecified; N20.0 Calculus of kidney
CPT/HCPCS: 36415; 80053; 81003; 82306; 82570; 83735; 83970; 84156; 85027

== ENCOUNTER 2023-11-13 13:40 | Outpatient (OUT) | payer MEDICARE, SELFPAY ==
--- NOTE | 2023-11-13 13:44 | CT_ITS ---
The [address] [address] Patient Name: NORA COON MRN: [id number] date: 1945 Sex: F Assigned Patient Location: CT Current Patient Location: Accession/Order Number: [id number] Exam Date: 11/13/2023 13:48 Report Date: 11/14/2023 06:39 At the request of: ANA GARCIA Procedure: CT chest wo con EXAMINATION: CT chest wo con HISTORY: Multiple Pulmonary Nodules COMPARISON: CT chest 11/19/2022 TECHNIQUE: Axial, Coronal, and Sagittal images were created without the administration of IV contrast material. Dose reduction techniques were achieved by using automated exposure control and/or adjustment of mA and/or kV according to patient size and/or use of iterative reconstruction technique. FINDINGS: LUNGS: 10 mm patchy opacity within left lower lobe superior segment. Mild emphysematous changes. PLEURA: No mass, effusion, or pneumothorax. VASCULATURE: No abnormality. PHILLY: No mass or pathologic adenopathy. MEDIASTINUM: No mass or pathologic adenopathy. CARDIAC: No enlargement, pericardial thickening, or pericardial effusion. Coronary Artery calcifications: Coronary calcifications are heavy. AORTA: No aneurysm or dissection. CHEST WALL: No mass or axillary adenopathy BONES: No bone lesion or fracture. LIMITED ABDOMEN: No suspicious findings. Limited images of the upper abdomen. OTHER: Negative. CT/CT chest wo con IMPRESSION: 1. Small patchy opacity within left lower lobe; minimally increased in size (10 mm on today's study; 8 mm on prior study. This may demonstrate slight growth or differences in lung expansion and/or slice selection. Follow-up CT chest in 6 months is recommended to document stability. Electronically authenticated by: ABIDA REICH Date: 11/14/2023 06:39
== END 2023-11-13 13:41 | disposition home or self-care (01) ==
LOC: CT 13:40
PROVIDERS: PCP Family Medicine; Visit Provider Internal Medicine
DX: R91.8 Other nonspecific abnormal finding of lung field (principal)
CPT/HCPCS: 71250

== ENCOUNTER 2023-12-25 11:32 | Outpatient (OUT) | payer MEDICARE, SELFPAY ==
--- OUTSIDE RECORDS SUMMARY | 2023-12-25 11:36 | XMS_ITS | CCD ---
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 Role Phone Bri Davis Unavailable NEAL, [...] Primary Care Unavailable SABRINA MANUEL Consulting Unavailable LESLIENG, DR CARSON Luciano Admitting Unavailable FURLONG, DR CARSON Luciano Attending Unavailable FURLONG, DR CARSON Luciano Consulting Unavailable FURLONG, DR CARSON Luciano Primary Care Unavailable Furlong Carson LEIVA Primary Care Provider Unavailable Primary Care Provider UnavailGOOD Almonte Referring Unavailable CARSON SULLIVAN Primary Care Unavailable GOOD DAN Referring Unavailable CARSON SULLIVAN Primary Care Unavailable Aden Baca Admitting Unavailable Aden Baca Attending Unavailable Carson Sullivan Care Unavailable CARSON SULLIVAN Referring Unavailable CARSON SULLIVAN Primary Care Unavailable GOOD DAN Referring Unavailable FURLONG, CARSON G Primary Care Unavailable YULIA HERNÁNDEZ Attending Unavailable YULIA HERNÁNDEZ L Attending Unavailable YULIA HERNÁNDEZ L Attending Unavailable YULIA HERNÁNDEZ L Attending Unavailable FURLONG, CARSON G Attending Unavailable FURLONG, CARSON G Referring Unavailable FURLONG, CARSON G Primary Care Unavailable FURLONG, CARSON G Attending Unavailable FURLONG, CARSON G Referring Unavailable FURLONG, CARSON G Primary Care Unavailable FURLONG, CARSON G Referring Unavailable FURLONG, CARSON G Primary Care Unavailable NIGOOD L Attending Unavailable FURLONG, CARSON G Referring Unavailable FURLONG, CARSON G Primary Care Unavailable NI, GOOD L Attending Unavailable FURLONG, CARSON G Referring Unavailable FURLONG, CARSON G Primary Care Unavailable Vinicio CANADA, Diaomnd Temple Attending Unavailable Allergies Allergy Classification Reported Allergen(s) Allergy Type Date of Onset Reaction(s) Facility (17 sources) hydroCHLOROthiazide; Translations: [HYDROCHLOROTHIAZIDE] Drug Allergy Itching [facility] (1 source) Sulfonamides (Antibiotic) Drug allergy (disorder) [facility] (13 sources) HMG-CoA reductase inhibitor; Translations: [DRAVWHV-MBM-RRB REDUCTASE INHIBITORS] Propensity to adverse reactions to drug pain [facility] (13 sources) nickel; Translations: [NICKEL] Drug Allergy Rash [facility] (16 sources) Sulfonamides (Antibiotic); Translations: [SULFA (SULFONAMIDE ANTIBIOTICS)] Propensity to adverse reactions to drug 022 Photosensitivity [facility] (3 sources) HMG-CoA reductase inhibitor Drug Allergy [facility] (3 sources) hydroCHLOROthiazide Drug Allergy Itching [facility] (3 sources) nickel sulfate Drug Allergy Rash [facility] (1 source) hydroCHLOROthiazide Drug Allergy [facility] Repository Medications Current Medications Medication Drug Class(es) [...] / oxyCODONE hydrochloride 5 mg oral tablet (4 sources) Opioid Agonist Start: 10-24-2023 take 1 tablet by mouth every six hours Oxycodone-Acetaminophen Active 1 TAB PO Every 6 hours October 24, 2023 12:00am take 1 tablet by nabeel th every six hours oxyCODONE-Acetaminophen 5-325 MG 1 table t as needed Orally every 6 hrs Active amLODIPine 10 mg oral tablet (18 sources) Dihydropyridine Calcium Channel Kahil Start: 12-21-2022 take 10 mg by mouth once daily Amlodipine Active 10 MG PO Daily 2023 1:00am ascorbic acid 1000 mg extended release oral tablet (16 sources) Vitamin C Start: 02-07-2018 take 1 tablet by mouth once daily Ascorbic Acid (Vitamin C) (Vitamin C) 1,000 mg Tablet Extended Release Active 1000 MG PO Daily February 07, 2018 1:00am ascorbic acid, v itamin C, (VITAMIN C) 1000 mg tablet as directed Orally 0 Active Bioflavonoid Pro ducts (Vitamin C) chewable tablet as directed Orally 0 Active Vitamin C - as d irected Orally Active aspirin 81 mg delayed release oral tablet (18 sources) Platelet Aggregation Inhibitor, Nonsteroidal Anti-inflammatory Drug Start: 02-07-2018 Aspirin (Lorie Lo w Dose Aspirin) 81 mg Tablet,Delayed Release (Dr/Ec) Active 81 MG PO Daily February 07, 2018 1:00am take 1 tablet by nabeel th every twenty-four hours Aspirin 81 MG 1 tablet Orally Once a day for 30 day(s) Active B Eobdaqz-Uysbzg-BQ (Super B-Complex) tablet (3 sources) B Complex-Biotin -FA (Super B-Complex) tablet as directed Orally 0 Active benzonatate 100 mg oral capsule (14 sources) Non-narcotic Antitussive Start: 018 End: 024 take 1 capsule by mouth three times [...] Once a day for 30 day(s) Not-Taking calcium carbonate 1500 mg / cholecalciferol 200 unt oral capsule (1 source) Vitamin D Start: 02-07-2018 take 1 tablet by mouth once daily Calcium Carbonate-Vitamin D3 (Calcium 600 + D(3)) 600 mg calcium- 200 unit Capsule Active 1 TAB PO Daily February 07, 2018 1:00am xsifwdu-vrukghdet-vuqt 333-133-5 MG per tablet (3 sources) calcium-magnesiu m-zinc 333-133-5 MG per tablet every 8 (eight) hours 0 Active Centrum Silver - (1 source) Centrum Silver - as directed Orally Active cholecalciferol 0.05 mg oral capsule (3 sources) Vitamin D Start: 02-07-2018 take 1 capsule by mouth once daily Cholecalciferol (Vitamin D3) (Vitamin D3) 2,000 unit Capsule Active 2000 UNIT PO Daily February 07, 2018 1:00am take [address] [facility] every twenty-four hours Vitamin D3 50 MCG (1999 UT) 1 capsule Orally Once a day Active docosahexaenoic acid 120 mg / eicosapentaenoic acid 180 mg oral capsule (3 sources) omega-3 (fish oi l) 1000 MG capsule 1 capsule 1 (one) time each day at the same time 0 Active DULoxetine 60 mg delayed release oral capsule (1 source) Serotonin and Norepinephrine Reuptake Inhibitor Start: 024 take 1 capsule by mouth once daily Duloxetine (Cymbalta) 60 mg capsule,delayed release(DR/EC) Active 60 MG PO Daily October 24, 2023 12:00am fluticasone propionate 0.05 mg/actuat metered dose nasal spray (13 sources) Corticosteroid Start: 023 take 1 spray(s) nasal route in the [...] day for 30 day(s) Active lactobacillus acidophilus [id number] unt oral capsule (10 sources) Lactobacillus ac idophilus (PROBIOTIC) 10 billion cell capsule 1 capsule See Admin Instructions. 0 Active levothyroxine sodium 0.112 m g oral tablet (18 sources) l-Thy roxin e Star t: 12-0 -20 18 take 1 tablet by mouth once daily [...] day(s) Active lisinopril 40 mg oral tablet (18 sources) Angiotensin Converting Enzyme Inhibitor Start: 09-29-2022 take 40 mg by mouth once daily Lisinopril Active 40 MG PO Daily 2023 1:00am loratadine 10 mg oral tablet (18 sources) Start: 02-07-2018 End: 03-30-2023 take 10 mg by mouth once daily Loratadine Active 10 MG PO Daily February 07, 2018 1:00am take 1 tablet by mouth in the mo rning loratadine 10 mg capsule Take 1 tablet by mouth in the morning. 0 Active lutein 10 mg oral tablet (16 sources) Start: 10-24-2023 take 10 mg by mouth once daily Lutein Active 10 MG PO Daily October 24, 2023 12:00am give with meal/snack Start: 02-07-2018 End: 10-24-2023 take 6 mg by mouth once daily Lutein Discontinued 6 MG PO Daily February 07, 2018 1:00am October 24, 2023 10:56am take 1 tablet by nabeel th every twenty-four hours lutein 10 mg tablet Take 1 tablet by mouth daily. 0 Active metoprolol tartrate 25 mg oral tablet (19 sources) beta-Adrenergic Akhil Start: 10-24-2023 take 25 mg by mouth once daily Metoprolol Succinate Active 25 MG PO Daily October 24, 2023 12:00am Start: 10-28-2022 End: 04-17-2023 take 1 tablet [...] mouth in the morning. 0 05/02/2022 Active qb-lrr-prfjo-calcium carb-K1 400 mcg-500 mg calcium-20 mcg tablet (10 sources) Start: 05-02-2022 take 1 tablet by mouth once in the morning gg-str-ifdci-calcium carb-K1 400 mcg-500 mg calcium-20 mcg tablet Take 1 tablet by mouth in the morning. 90 tablet 0 05/02/2022 Active naloxone hydrochloride 40 mg/ml nasal spray (10 sources) Opioid Antagonist naloxone (NARCAN) 4 mg/actuation spray,non-aerosol nasal spray Administer 1 spray (4 mg total) into each nostril as needed. 1 spray Q2-3 minutes as needed 0 Active 24 hr nicotine 0.875 mg/hr transdermal system (4 sources) Cholinergic Nicotinic Agonist Start: 04-28-2023 apply 1 dose transdermal route once daily nicotine (NICODERM CQ) 21 mg/[address] 1 patch on the skin daily. 30 patch 1 04/28/2023 Active Aurora 3 1000 MG (4 sources) take 1 capsule by mouth once daily Aurora 3 1000 MG 1 capsule Orally Once a day for 30 day(s) Active omega-3 acid ethyl esters (group home) 1000 mg oral capsule (1 source) Start: 02-07-2018 take 1000 mg by mouth once daily Aurora-3 Acid Ethyl Esters Active 1000 MG PO Daily February 07, 2018 1:00am omeprazole 20 mg delayed release oral capsule (19 sources) Proton Pump Inhibitor Start: 02-07-2018 End: 03-20-2023 omeprazole (PriLOSEC) 20 mg capsule [...] for 30 day(s) Active polyethylene glycol 3350 92537 mg powder for oral solution (11 sources) Osmotic Laxative Start: 02-07-2018 Polyethylene Glycol 3350 (Miralax) 17 gram Powder In Packet Active 17 GM PO Daily February 07, 2018 1:00am Mix with 8 ounces of fluid Polyethylene Glycols (4 sources) Polyethylene Gly col [...] for e-prescription and drug interaction check* Not-Taking predniSONE 20 mg oral tablet (3 sources) Start: 04-28-2023 End: 05-05-2023 take 1 tablet by mouth in the morning, then take 1 tablet by mouth at bedtime predniSONE (DELTASONE) 20 mg tablet Take 1 tablet (20 mg total) by mouth in the morning and 1 tablet (20 mg total) before bedtime. Do all this for 7 days. 14 tablet 0 04/28/2023 05/05/2023 Active Start: 02-15-2018 Prednisone Act iggy 1 dose pk PO per package directions February 15, 2018 1:00am take 4 tabs for 3 days then take 3 tabs for 3 days then take 2 tabs for 3 days then take 1 tab for 3 days saccharomyces boulardii 250 mg oral capsule (5 sources) Start: 10-24-2023 take 250 mg by mouth once daily Saccharomyces Boulardii Active 250 MG PO Daily October 24, 2023 12:00am take [address] [facility] every twenty-four hours Probiotic 250 MG 1 capsule Orally once a day for 30 days Active take 1 capsule by mouth every tw elve hours Probiotic 250 MG 1 capsule Orally [...] Super B-Complex - as directed Orally Not-Taking ubidecarenone 50 mg oral capsule (1 source) Start: 02-07-2018 Coenzyme Q10 ( Co Q-10) 50 mg Capsule Active 50 MG PO Daily February 07, 2018 1:00am Vitamin B Complex (1 source) Start: 10-24-2023 take 1 tablet by mouth once daily Vitamin B Complex Active 1 TAB PO Daily October 24, 2023 12:00am vitamin e 180 mg oral capsule (14 sources) Start: 02-07-2018 take 400 [IU] by mouth once daily Vitamin E Active 400 UNIT PO Daily February 07, 2018 1:00am vitamin E 400 un its capsule alpha tocopherol (Vitamin E) 400 units capsule 1 capsule 1 (one) time each day at the same time 0 Active take 1 tablet by mouth once mariposa y vitamin E 400 units capsule 1 tablet Orally Once a day for 30 day(s) 0 Active Completed/Discontinued Medications Medication Drug Class(es) Dates Sig (Normalized) Sig (Original) cephalexin 500 mg oral capsule (1 source) Cephalosporin Antibacterial Start: 02-15-2018 End: 2023 take 1 capsule by mouth every eight hours Cephalexin (Keflex) 500 mg capsule Discontinued 500 MG PO Q8H 15 February 15, 2018 1:00am 2023 10:10am Co Q-10 50 MG (1 source) take 1 capsule by mouth once daily Co Q-10 50 MG 1 capsule with a meal Orally Once a day for 30 day(s) Not-Taking cyclobenzaprine hydrochloride 10 mg oral tablet (1 source) Muscle Relaxant Start: 02-15-2018 End: 2023 take 10 mg by mouth three times daily Cyclobenzaprine Discontinued 10 MG PO Three times daily 50 February 15, 2018 1:00am 2023 10:11am docusate sodium 100 mg oral tablet (5 sources) Start: 02-07-2018 End: 2023 take 100 mg by mouth once daily Docusate Sodium Discontinued 100 MG PO Daily February 07, 2018 1:00am 2023 10:11am ferrous gluconate 240 mg oral tablet (1 source) Start: 02-07-2018 End: 2023 take 1 tablet by mouth once daily Ferrous Gluconate (Iron High Potency) 240 mg (27 mg iron) Tablet Discontinued 1 TAB PO Daily February 07, 2018 1:00am 2023 10:11am furosemide 20 mg oral tablet (1 source) Loop Diuretic Start: 02-07-2018 End: 2023 take 20 mg by mouth once daily Furosemide Discontinued 20 MG PO Daily February 07, 2018 1:00am 2023 10:11am gabapentin 300 mg oral capsule (3 sources) Anti-epileptic Agent Start: 02-07-2018 End: 2023 take 300 mg by mouth twice daily Gabapentin Discontinued 300 MG PO Twice Daily at 0700 and 1400 February 07, 2018 1:00am 2023 10:11am Start: 02-07-2018 End: 2023 take 600 mg by mouth once daily at bedtime Gabapentin Discontinued 600 MG PO Daily at bedtime February 07, 2018 1:00am 2023 10:11am giuseppe root 550 mg oral capsule (2 sources) Start: 02-07-2018 End: 2023 take 550 mg by mouth once daily Giuseppe (Zingiber Officinalis) Discontinued 550 MG PO Daily February 07, 2018 1:00am 2023 10:11am L.Acidophilus-B.B ifidum,Longum (Probiotic Colon Support) 240 mg (3 billion cell) Capsule (1 source) Start: 02-07-2018 End: 2023 take 1 capsule by mouth once daily L.Acidophilus-B.Bifi dum,Longum (Probiotic Colon Support) 240 mg (3 billion cell) Capsule Discontinued 1 CAP PO Daily February 07, 2018 1:00am 2023 10:11am LORazepam 1 mg oral tablet (3 sources) Benzodiazepine Start: 02-07-2018 End: 2023 take 1 mg by mouth at bedtime Lorazepam Discontinued 1 MG PO Bedtime February 07, 2018 1:00am 2023 10:11am morphine sulfate 15 mg extended release oral tablet (2 sources) Opioid Agonist Start: 02-15-2018 End: 2023 Morphine (Ms Contin) 15 mg tablet extended release Discontinued 30 MG PO Q12H 56 14 February 15, 2018 2023 10:12am take w/enough water to swallow whole; do not crush/dissolve/chew/ cut/break Start: 02-07-2018 End: 02-15-2018 take 15 mg by mouth three times daily Morphine Discontinued 15 MG PO Three times daily February 07, 2018 1:00am February 15, 2018 8:52am MS Contin 30 MG (1 source) Start: 02-19-2018 take 1 tablet by mouth every twelve hours MS Contin 30 MG 1 tablet Orally every 12 hrs for 7 days *please review for potential _update for e-prescription and drug interaction check* Feb, Not-Taking Dqikyiao-Dca-Qpl n-Fa-Vit K-Lut (Centrum Silver Women) 8 mg iron-400 mcg-300 mcg Tablet (1 source) Start: 02-07-2018 End: 10-24-2023 take 1 tablet by mouth once daily Cpntewdd-Ltz-Zyyd-Fa-V it K-Lut (Centrum Silver Women) 8 mg iron-400 mcg-300 mcg Tablet Discontinued 1 TAB PO Daily February 07, 2018 1:00am October 24, 2023 10:57am 24 hr niacin 1000 mg extended release oral tablet (15 sources) Nicotinic Acid Start: 02-07-2018 End: 10-24-2023 take 1000 mg by mouth once daily Niacin Discontinued 1000 MG PO Daily February 07, 2018 1:00am October 24, 2023 10:57am take 1 tablet by nabeel twice daily at mealtime niacin 1,000 mg tablet extended release 1 tablet with food Orally BID 0 Active oxyCODONE hydrochloride 5 mg oral tablet (3 sources) Opioid Agonist Start: 02-15-2018 End: 2023 take 1 tablet by mouth once daily Oxycodone (Roxicodone) 5 mg Tablet Discontinued 5 MG PO Q4H 60 14 February 15, 2018 2023 10:12am Do not exceed 5 tablets/day. Take as directed above Start: 02-07-2018 End: 02-15-2018 take 5 tablets by mouth once daily Oxycodone Discontinued 15 MG PO As Directed February 07, 2018 1:00am February 15, 2018 8:52am May take up to 5 tabs daily take 0.5 tablet by m outh every six hours oxyCODONE HCl 30 MG 0.5 tablet as needed Orally every 6 hrs 15 mg Not-Taking potassium 99 mg extended release oral tablet (1 source) take 1 tablet by mouth once daily Potassium 99 MG 1 tablet Orally Once a day for 30 day(s) Not-Taking potassium chloride 10 meq extended release oral tablet (11 sources) Start: 02-07-2018 End: 2023 take 10 mEq by mouth twice daily Potassium Chloride Discontinued 10 MEQ PO Twice daily February 07, 2018 1:00am 2023 10:12am potassium chlori de (KLOR-CON SPRINKLE) 10 MEQ CR capsule 2 capsules with food Orally Once a day 0 Active Psyllium (1 source) Psyllium 100 % 1 packet with 8 ounces of liquid as needed Orally Three times a day *please review for potential _update for e-prescription and drug interaction check* Not-Taking Vitamin B Complex (Super B-50 Complex) Capsule (1 source) Start: 02-07-2018 End: 2023 take 1 capsule by mouth once daily Vitamin B Complex (Super B-50 Complex) Capsule Discontinued 1 CAP PO Daily February 07, 2018 1:00am 2023 10:12am Vitamin D3 2000 UNIT (1 source) take [...] 11-16-2021 11-16-2021 Chronic Calculus of urinary tract (9 sources) Kidney stone; Translations: [Calculus of kidney] [...] 3a] Onset: 10-19-2022 Deficiency and other anemia (4 sources) Anemia, unspecified; Translations: [Anemia, unspecified] Episodic Deficiency and other anemia (1 source) Anemia; Translations: [Anemia, unspecified] 10-21-2023 Episodic Disorders of lipid metabolism (15 sources) Hyperlipidemia, unspecified; Translations: [Pure hypercholesterolemia , unspecified] Onset: 10-11-2021 Chronic Esophageal disorders (11 sources) Gastro-esophageal reflux disease without esophagitis; Translations: [Gastroesophageal reflux disease] Onset: 10-11-2021 11-16-2021 Chronic Essential hypertension (13 sources) Essential (primary) hypertension; Translations: [Essential hypertension] Onset: 05-03-2021 11-16-2021 Chronic Fluid and electrolyte disorders (12 sources) Hypokalemia; Translations: [Hypokalemia] Onset: 11-16-2021 11-16-2021 Episodic Headache; including migraine (10 sources) Migraine; Translations: [Migraine, unspecified, not intractable, without status migrainosus] Onset: 11-16-2021 11-16-2021 Chronic Hypertension with complications and secondary hypertension (20 sources) Hypertensive renal disease; Translations: [Hypertensive chronic kidney disease with stage 1 through stage 4 chronic kidney disease, or unspecified chronic kidney disease] Onset: 03-31-2022 Resolved: 10-19-2022 Chronic Nutritional deficiencies (18 sources) Vitamin D deficiency; Translations: [Vitamin D deficiency, unspecified] Onset: 11-16-2021 Chronic Osteoarthritis (5 sources) Primary osteoarthritis, right shoulder; Translations: [Primary osteoarthritis, left shoulder] Onset: 09-26-2023 2023 Chronic Other diseases of kidney and ureters [...] Spondylosis; intervertebral disc disorders; other back problems (12 sources) Spinal stenosis of lumbar region; Translations: [Spinal stenosis, lumbar region without neurogenic claudication] Onset: 09-14-2017 11-16-2021 Episodic Substance-related disorders (13 sources) Nicotine dependence, cigarettes, [...] Translations: [Hyperglycemia, unspecified] Onset: 06-20-2016 11-16-2021 Episodic Mood disorders (10 sources) Mood [...] Translations: [Sleep disorder, unspecified] Onset: 06-28-2023 Episodic Results Test Name Value Interpretation Reference Range Facility Erythrocyte distribution wid th Auto (RBC) [Ratio]on 10-17-2023 Erythrocyte distribution wid th (RBC) [Ratio] 13.5 % 11.0-15.0 [facility] Estimated glomerular filtrat ion rate (GFR) non- Americanon 10-17-2023 GFR/1.73 sq M.predicted rosa m g non-blacks MDRD (S/P/Bld) [Vol rate/Area] 43 mL/min/{1.73_m2} Low >=60 [facility] Globulin Calc (S) [Mass/Vol] on 10-17-2023 Globulin (S) [Mass/Vol] 3.4 g/dL [facility] Hematocrit Auto (Bld) [Volum e fraction]on 10-17-2023 Hematocrit (Bld) [Volume fraction] 38.7 % 36.0-48.0 [facility] Hemoglobin [Mass/volume] in Bloodon 10-17-2023 Hemoglobin (Bld) [Mass/Vol] 12.8 g/dL 12.0-16. 0 [facility] Laboratory - Chemistry and C hemistry - challengeon 10-17-2023 Albumin [Mass/Vol] 4.0 g/dL 3.4-5.0 [facility] ALP [Catalytic activity/Vol] 94 U/L 46-116 [facility] ALT [Catalytic activity/Vol] 23 U/L 14-59 [facility] AST [Catalytic activity/Vol] 10 U/L Low 15-37 [facility] Bilirubin [Mass/Vol] 0.4 mg/dL 0.2-1.0 [facility] Calcium [Mass/Vol] 9.3 mg/dL 8.5-10.1 [facility] Chloride [Moles/Vol] 96 mmol/L Low 98-107 [facility] CO2 [Moles/Vol] 26.8 mmol/L 21.0-32.0 [facility] Creatinine [Mass/Vol] 1.21 mg/dL High 0.55-1.02 [facility] GFR/1.73 sq M.predicted MDRD (S/P/Bld) [Vol rate/Area] 52 mL/min/{1.73_m2} Low >=60 [facility] Glucose [Mass/Vol] 109 mg/dL High 74-106 [facility] Magnesium [Mass/Vol] 2.0 mg/dL 1.8-2.4 [facility] Potassium [Moles/Vol] 3.7 mmol/L 3.5-5.1 [facility] Protein [Mass/Vol] 7.4 g/dL 6.4-8.2 [facility] Sodium [Moles/Vol] 130 mmol/L Low 136-145 [facility] Urea nitrogen [Mass/Vol] 20.0 mg/dL High 7.0-18.0 [facility] Urea nitrogen/Creatinine [Ma ss ratio] 16.5 mg/mg [facility] Bilirubin Ql (U) Negative NEGATIVE [facility] Glucose (U) [Mass/Vol] Negative NEGATIVE [facility] Ketones Ql (U) TRACE mg/dL Abnormal NEGATIVE [facility] pH (U) 6.0 [pH] 5.0-9.0 [facility] Specific gravity (U) [Rel density] 1.015 1.005-1.02 5 [facility] Urobilinogen Qn (U) 0.2 {Drew'U}/dL 0.2-1.0 [facility] Laboratory - Specimen inform ationon 10-17-2023 Appearance (U) SL CLOUDY CLEAR [facility] Color (U) YELLOW YELLOW [facility] Laboratory - Urinalysison Leukocyte esterase Test stri p Ql (U) Negative NEGATIVE [facility] Nitrite Ql (U) Negative NEGATIVE [facility] Protein (U) [Mass/Vol] 23.3 mg/dL High <=11.9 [facility] Protein Ql (U) Negative NEG/TRACE [facility] Leukocytes [#/volume] correc di for nucleated erythrocytes in Blood by Automated counon 10-17-2023 WBC corrected for nucl RBC A uto (Bld) [#/Vol] 6.7 10 3/uL 4.0-11.0 [facility] MCH Auto (RBC) [Entitic mass ]on 10-17-2023 MCH (RBC) [Entitic mass] 32.7 pg 26.7-34.0 [facility] MCHC Auto (RBC) [Mass/Vol]on 10-17-2023 MCHC (RBC) [Mass/Vol] 33.1 g/dL 29.9-35.2 [facility] MCV Auto (RBC) [Entitic vol] on 10-17-2023 MCV (RBC) [Entitic vol] 98.7 fL 81.0-99.0 [facility] No Panel Informationon 10-16 25-Hydroxy Vitamin D Total 47.1 ng/mL [facility] Comment on above: <20 ng/mL Vit D defi cient20-<30 ng/mL Vit D [id number] ng/mL Vit D sufficient>100 ng/mL Potential Toxicity Parathyroid Hormone (Intact) 24 pg/mL 15-65 [facility] Comment on above: Performed at: [place] [id number] Director: Billy Patel PhD, Phone: [phone] Urine Occult Blood Negative NEGATIVE [facility] Urine Random Creatinine 116.48 mg/dL 20.0 0-300. 00 [facility] Platelet mean volume Auto (B ld) [Entitic vol]on 10-17-2023 Platelet mean volume (Bld) [Entitic vol] 9.2 fL Low 9.5-13.5 [facility] Platelets Auto (Bld) [#/Vol] on 10-17-2023 Platelets (Bld) [#/Vol] 364 10 3/uL 150-450 [facility] RBC Auto (Bld) [#/Vol]on RBC (Bld) [#/Vol] 3.92 10 6/uL Low 4.20-5.40 [facility] Serum or plasma albumin/glob ulin mass ratioon 10-17-2023 Albumin/Globulin [Mass ratio] 1.2 {ratio} [facility] Serum or plasma anion gap de terminationon 10-17-2023 Anion gap [Moles/Vol] 10.9 mmol/L [facility] Urine protein/creatinine rat ioon 10-17-2023 Protein/Creatinine (U) [Ratio] 0.20 [facility] BASIC METABOLIC PANLon 06-27 Anion gap [Moles/Vol] 13 mmol/L Normal 5-15 [facility] Comment on above: Performed By: #### B ROBERTO, THYR #### [facility] ([id number]) [address], [address] [place] [address] Calcium [Mass/Vol] 9.9 mg/dL Normal 8.5-10.5 [facility] Comment on above: Performed By: #### B ROBERTO, THYR #### [facility] ([id number]) [address], [address] [place] [address] Chloride [Moles/Vol] 100 mmol/L Normal 98-109 [facility] Comment on above: Performed By: #### Becki MEJIA, THYR #### [facility] ([id number]) [address] [address] [place] [address] CO2 [Moles/Vol] 23 mmol/L Normal 22-32 [facility] Comment on above: Performed By: #### Becki MEJIA, THYR #### [facility] ([id number]) [address] [place] [address] Creatinine [Mass/Vol] 1.20 mg/dL High 0.40-1.00 [facility] Comment on above: Result Comment: METH OD TRACEABLE TO IDMS STANDARD Performed By: #### B ROBERTO, THYR #### [facility] ([id number]) [address] [place] [address] GFR/1.73 sq M.predicted rosa m g non-blacks MDRD (S/P/Bld) [Vol rate/Area] 47 mL/min/{1.73_m2} Low >59 [facility] Comment on above: Result Comment: Reported eGFR is based on the CKD-EPI 2020 equation that does not use a race coefficient. Performed By: #### B ROBERTO, THYR #### [facility] ([id number]) [address] [place] [address] Glucose [Mass/Vol] 86 mg/dL Normal 65-99 [facility] Comment on above: Performed By: #### B ROBERTO, THYR #### [facility] ([id number]) [address] [place] [address] Potassium [Moles/Vol] 4.3 mmol/L Normal 3.5-5.0 [facility] Comment on above: Performed By: #### B ROBERTO, THYR #### [facility] ([id number]) [address] [place] [address] Sodium [Moles/Vol] 136 mmol/L Normal 134-146 [facility] Comment on above: Performed By: #### B ROBERTO, THYR #### [facility] ([id number]) [address] [place] [address] Urea nitrogen [Mass/Vol] 26 mg/dL Normal 5-27 [facility] Comment on above: Performed By: #### B ROBERTO, THYR #### [facility] ([id number]) [address] [place] [address] THYROID PROFILEon 06-28-2023 Free T4 [Mass/Vol] 1.14 ng/dL Normal 0.61-1.60 [facility] Comment on above: Performed By: #### B ROBERTO, THYR #### [facility] ([id number]) [address] [place] [address] TSH 0.81 uIU/mL Normal 0.49-4.67 [facility] Comment on above: Performed By: #### B ROBERTO, THYR #### [facility] ([id number]) [address] [place] [address] XR shoulder LT min 2V*on XR shoulder LT min 2V* [facility] [place] [address] [place] [address] XRay Report Signed Patient: Mike Tellez MR#: [id number] : 1945 Acct:[id number] Age/Sex: 78 / F ADM Date: 05/11/23 Loc: [facility] Room: Type: [facility] Attending Dr: Aden Baca DO Copies to: [...] Justin Lucas M.D.05/11/2023 2:24 PM Dictation Location: [place] [address] Transcribed By: [facility] 05/11/231423 Dictated By: Justin Lucas DO 05/11/23 142 Signed By: 05/11/23 1424 Normal [facility] No Panel Informationon 04-07 [facility] DRUG SCREEN, URINEon 024 AMPHETAMINE/METHAMP Negative Normal NEG [facility] Comment on above: Result Comment: AMPH /METH screening cut off = 1000 ng/mL Performed By: #### D HOLT #### [facility] ([id number]) [address] [facility] [facility] [address] [place] [address] BARBITURATES Negative Normal NEG [facility] Comment on above: Result Comment: Rhonda iturates screening cut off value = 200 ng/mL Performed By: #### D HOLT #### [facility] ([id number]) [address] [place] [address] BENZODIAZEPINES Negative Normal NEG [facility] Comment on above: Result Comment: Guillermo odiazepines screening cut off value = 200 ng/mL Performed By: #### D HOLT #### [facility] ([id number]) [address] [place] [address] CANNABINOIDS Negative Normal NEG [facility] Comment on above: Result Comment: Shanita abinoids/THC screening cut off value = 50 ng/mL Performed By: #### D HOLT #### [facility] ([id number]) [address] [place] [address] COCAINE METABOLITE Negative Normal NEG [facility] Comment on above: Result Comment: Coca ine screening cut off value = 300 ng/mL Performed By: #### D HOLT #### [facility] ([id number]) [address] [place] [address] ECSTASY Negative Normal NEG [facility] Comment on above: Result Comment: Ecst asy screening cut off value = 500 ng/mL This report is intended for use in clinical monitoring or management of patients. Performed By: #### D HOLT #### [facility] ([id number]) [address] [place] [address] METHADONE Negative Normal NEG [facility] Comment on above: Result Comment: Meth adone screening cut off value = 300 ng/mL. Performed By: #### D HOLT #### [facility] ([id number]) [address] [place] [address] OPIATES Positive Abnormal NEG [facility] Comment on above: Result Comment: Conf irmation available upon request. Opiates screening cut off value = 300 ng/mL NOTE: This test is used for the detection of codeine, hydrocodone (>1000 ng/mL), morphine and hydromorphone (>900 ng/mL) in urine. Performed By: #### D HOLT #### [facility] ([id number]) [address] [place] [address] OXYCODONE Negative Normal NEG [facility] Comment on above: Result Comment: Oxyc odone screening cut off value = 300 ng/mL NOTE: This test is used for the detection of oxycodone and oxymorphone in urine. Performed By: #### D HOLT #### [facility] ([id number]) [address] [place] [address] PHENCYCLIDINE Negative Normal NEG [facility] Comment on above: Result Comment: Phen cyclidine screening cut off value = 25 ng/mL Performed By: #### D HOLT #### [facility] ([id number]) [address] [place] [address] Drug Screen, Urineon 024 Amphetamines Screen method >1000 ng/mL Ql (U) Negative Negative^N [facility] Comment on above: AMPH/METH screening cut off = 1000 ng/mL Barbiturates Screen Ql (U) Negative N egative^N [facility] Comment on above: Barbiturates screeni ng cut off value = 200 ng/mL Benzodiazepines Ql (U) Negative Negat iggy^N [facility] Comment on above: Benzodiazepines scre ening cut off value = 200 ng/mL Cocaine Ql (U) Negative Negative^N [facility] Comment on above: Cocaine screening cu t off value = 300 ng/mL Interpretation and review of laboratory results Abnormal [facility] Methadone Screen Ql (U) Negative Nega tive^N [facility] Comment on above: Methadone screening cut off value = 300 ng/mL. Methylenedioxymethamphetamin e Screen Ql (U) Negative Negative^N [facility] Comment on above: Ecstasy screening cu t off value = 500 ng/mL This report is intended for use in clinical monitoring or management of patients. Opiates Screen Ql (U) Positive Abnormal Negati ve^N [facility] Comment on above: Confirmation availab le upon request. Opiates screening cut off value = 300 ng/mL NOTE: This test is used for the detection of codeine, hydrocodone (>1000 ng/mL), morphine and hydromorphone (>900 ng/mL) in urine. oxyCODONE Ql (U) Negative Negative^N ative [facility] Comment on above: Oxycodone screening cut off value = 300 ng/mL NOTE: This test is used for the detection of oxycodone and oxymorphone in urine. Phencyclidine Screen method >25 ng/mL Ql (U) Negative Negative^N ative [facility] Comment on above: Phencyclidine screen ing cut off value = 25 ng/mL Tetrahydrocannabinol Screen method >50 ng/mL Ql (U) Negative Negative^N [facility] Comment on above: Cannabinoids/THC scr eening cut off value = 50 ng/mL [facility] PTH INTACTon 06-02-2022 PTH, Intact 14 pg/mL Critically low 15-65 [facility] Comment on above: Performed By: #### P THINT ####[facility] [address] [place], [place] [address]Dr. Ashok Bailey HEMOGRAM AND PLATELon 2022 Hematocrit (Bld) [Volume fraction] 32.0 % Critically low 36.0-48.0 [facility] Comment on above: Performed By: #### H H ####[facility] [address] [place], [place] [address]Dr. Ashok Bailey Hemoglobin (Bld) [Mass/Vol] 10.6 g/dL Critically low 12.0 -16.0 [facility] Comment on above: Performed By: #### H H ####[facility] [address] [place], [place] [address]Dr. Ashok Bailey MCH (RBC) [Entitic mass] 31.4 pg Normal 26.7-34.0 [facility] Comment on above: Performed By: #### H H ####[facility] [address] [place], [place] [address]Dr. Ashok Bailey MCHC (RBC) [Mass/Vol] 33.1 g/dL Normal 29.9-35.2 [facility] Comment on above: Performed By: #### H H ####[facility] [address] [place] [address]Dr. Ashok Bailey MCV (RBC) [Entitic vol] 94.7 fL Normal 81.0-99.0 [facility] Comment on above: Performed By: #### H H ####[facility] [address] [place] [address]Dr. Ashok Bailey PLT 345 103/ul Normal 150-450 [facility] Comment on above: Performed By: #### H H ####[facility] [address] [place], [place] [address]Dr. Ashok Bailey RBC 3.38 106/ul Critically low 4.20-5.40 [facility] Comment on above: Performed By: #### H H ####[facility] [address] [place], [place] [address]DrAlex Ashok Leo WBC 8.4 103/ul Normal 4.0-11.0 [facility] Comment on above: Performed By: #### H H ####[facility] [address] [place], [place] [address]Dr. Ashok Bailey MAGNESIUMon 06-01-2022 Magnesium [Mass/Vol] 1.8 mg/dL Normal 1.8-2.4 [facility] Comment on above: Performed By: #### C MP, URIC, MG, PHOS ####[facility] [address] [place], [place] [address]Dr. Ashok Bailey PHOSPHORUSon 06-01-2022 Phosphate [Mass/Vol] 4.0 mg/dL Normal 2.6-4.7 [facility] Comment on above: Performed By: #### C MP, URIC, MG, PHOS ####[facility] [address] [place], [place] [address]DrAlex Neelamandrew Bailey PROF 14(COMP METB)on 023 Albumin [Mass/Vol] 3.8 g/dL Normal 3.4-5.0 [facility] Comment on above: Performed By: #### C MP, URIC, MG, PHOS ####[facility] [address] [place] [address]Dr. Ashok Bailey Albumin/Globulin [Mass ratio] 1.1 {ratio} Normal [facility] Comment on above: Performed By: #### C MP, URIC, MG, PHOS ####[facility] [address] [place] [address]Dr. Ashok Bailey ALP [Catalytic activity/Vol] 96 U/L Normal 46-116 [facility] Comment on above: Performed By: #### C MP, URIC, MG, PHOS ####[facility] [address] [place] [address]Dr. Ashok Bailey ALT [Catalytic activity/Vol] 17 U/L Normal 14-59 [facility] Comment on above: Performed By: #### C MP, URIC, MG, PHOS ####[facility] [address] [place], [place] [address]Dr. Ashok Bailey Anion gap [Moles/Vol] 15.4 mmol/L Normal [facility] [place] [facility] Comment on above: Performed By: #### C MP, URIC, MG, PHOS ####[facility] [address] [place], [place] [address]Dr. Ashok Bailey AST [Catalytic activity/Vol] 15 U/L Normal 15-37 [facility] Comment on above: Performed By: #### C MP, URIC, MG, PHOS ####[facility] [address] [place], [place] [address]Dr. Ashok Bailey Bilirubin [Mass/Vol] 0.3 mg/dL Normal 0.2-1.0 [facility] Comment on above: Performed By: #### C MP, URIC, MG, PHOS ####[facility] [address] [place], [place] [address]Dr. Ashok Bailey Calcium [Mass/Vol] 9.1 mg/dL Normal 8.5-10.1 [facility] Comment on above: Performed By: #### C MP, URIC, MG, PHOS ####[facility] [address] [place] [address]Dr. Ashok Bailey Chloride [Moles/Vol] 103 mmol/L Normal 98-107 [facility] Comment on above: Performed By: #### C MP, URIC, MG, PHOS ####[facility] [address] [place], [place] [address]Dr. Ashok Bailey CO2 [Moles/Vol] 24.9 mmol/L Normal 21.0-32.0 [facility] Comment on above: Performed By: #### C MP, URIC, MG, PHOS ####[facility] [address] [place], [place] [address]Dr. Ashok Bailey Creatinine [Mass/Vol] 1.35 mg/dL Critically high 0.55-1.02 [facility] Comment on above: Performed By: #### C MP, URIC, MG, PHOS ####[facility] [address] [place], [place] [address]Dr. Ashok Bailey EGFR-AF MONTENEGRIN 46 mL/min/1.73m2 Critically low >=60 [facility] Comment on above: Performed By: #### C MP, URIC, MG, PHOS ####[facility] [address] [place], [place] [address]Dr. Ashok Bailey EGFR-NON AF MONTENEGRIN 38 mL/min/1.73m2 Critically low >=60 [facility] Comment on above: Performed By: #### C MP, URIC, MG, PHOS ####[facility] [address] [place], [place] [address]Dr. Ashok Bailey Globulin (S) [Mass/Vol] 3.4 g/dL Normal [facility] Comment on above: Performed By: #### C MP, URIC, MG, PHOS ####[facility] [address] [place], [place] [address]Dr. Ashok Bailey Glucose [Mass/Vol] 86 mg/dL Normal 74-106 [facility] Comment on above: Performed By: #### C MP, URIC, MG, PHOS ####[facility] [address] [place], [place] [address]Dr. Ashok Bailey Potassium [Moles/Vol] 4.3 mmol/L Normal 3.5-5.1 [facility] Comment on above: Performed By: #### C MP, URIC, MG, PHOS ####[facility] [address] [place] [address]Dr. Ashok Bailey Protein [Mass/Vol] 7.2 g/dL Normal 6.4-8.2 [facility] Comment on above: Performed By: #### C MP, URIC, MG, PHOS ####[facility] [address] [place] [address]Dr. Ashok Bailey Sodium [Moles/Vol] 139 mmol/L Normal 136-145 [facility] Comment on above: Performed By: #### C MP, URIC, MG, PHOS ####[facility] [address] [place] [address]Dr. Ashok Bailey Urea nitrogen [Mass/Vol] 20.0 mg/dL Critically high 7.0-18 .0 [facility] Comment on above: Performed By: #### C MP, URIC, MG, PHOS ####[facility] [address] [place] [address]Dr. Ashok Bailey Urea nitrogen/Creatinine [Ma ss ratio] 14.8 mg/mg Normal [facility] Comment on above: Performed By: #### C MP, URIC, MG, PHOS ####[facility] [address] [place] [address]Dr. Ashok Bailey UA RANDOMon 06-01-2022 Bilirubin Ql (U) Negative Normal NEGATIVE [facility] Comment on above: Performed By: #### U A #### [facility] [address] [place] [address] Dr. Ashok Bailey Clarity (U) CLEAR Normal CLEAR [facility] Comment on above: Performed By: #### U A #### [facility] [address] [place] [address] Dr. Ashok Bailey Color (U) LT. YELLOW Normal YELLOW [facility] Comment on above: Performed By: #### U A #### [facility] [address] [place] [address] Dr. Ashok Bailey Glucose Ql (U) Negative Normal NEGATIVE [facility] Comment on above: Performed By: #### U A #### [facility] [address] [place] [address] Dr. Ashok Bailey Hemoglobin Ql (U) Negative Normal NEGATIVE [facility] Comment on above: Performed By: #### U A #### [facility] [address] [place] [address] [address] Ashok Bailey Ketones Ql (U) Negative Normal NEGATIVE [facility] Comment on above: Performed By: #### U A #### [facility] [address] [place] [address] Dr. Ashok Bailey LEUKOCYTES Negative Normal NEGATIVE [facility] Comment on above: Performed By: #### U A #### [facility] [address] [place] [address] Dr. Ashok Bailey Nitrite Ql (U) Negative Normal NEGATIVE [facility] Comment on above: Performed By: #### U A #### [facility] [address] [place] [address] Dr. Ashok Bailey pH (U) 6.0 [pH] Normal 5-9 [facility] Comment on above: Performed By: #### U A #### [facility] [address] [place] [address] Dr. Ashok Bailey SPEC GRAVITY 1.010 Normal 1.005-<=1. 025 [facility] Comment on above: Performed By: #### U A #### [facility] [address] [place] [address] Dr. Ashok Bailey UA PROTEIN Negative Normal NEGATIVE/ TRACE [facility] Comment on above: Performed By: #### U A #### [facility] [address] [place] [address] Dr. Ashok Bailey Urobilinogen Qn (U) 0.2 {Drew'U}/dL Normal 0.2 - 1.0 [facility] Comment on above: Performed By: #### U A #### [facility] [address] [place] [address] Dr. Ashok Bailey URIC ACID SERUMon 06-01-2022 Urate [Mass/Vol] 3.9 mg/dL Normal 2.6-6.0 [facility] Comment on above: Performed By: #### C MP, URIC, MG, PHOS ####[facility] [address] [place] [address]Dr. Ashok Bailey URINE T PROTEIN CREAT RATIOo n 06-01-2022 Protein (U) [Mass/Vol] 14.0 mg/dL Critically high <=12.0 [facility] Comment on above: Performed By: #### U RTPCR #### [facility] [address] [place] [address] [address] Ashok Bailey UR PROT CREAT RAT 0.28 Normal [facility] Comment on above: Performed By: #### U RTPCR #### [facility] [address] [place] [address] Dr. Ashok Bailey URINE CREAT 50.47 mg/dL Normal 20.00-300. 00 [facility] Comment on above: Performed By: #### U RTPCR #### [facility] [address] [place] [address] [address] Ashok Bailey VITAMIN D 25 OHon 06-01-2022 VIT D 25-OH 19.2 ng/mL Normal [facility] Comment on above: Performed By: #### F T4 #### [facility] [address] [place] [address] Dr. Ashok Bailey VIT D RANGES SEE BELOW Normal [facility] Comment on above: Result Comment: <20 ng/mL Vit D deficient 20 - <30 ng/mL Vit D insufficient 30 - 100 ng/mL Vit D sufficient >100 ng/mL Potential Toxicity Performed By: #### F T4 #### [facility] [address] [place] [address] Dr. Ashok Bailey US KIDNEYSon 05-03-2022 US KIDNEYS US KIDNEYS EXAM DATE: 05/03/2022 7:10 AM MST COMPARISON: None available. INDICATION: Stage IV chronic kidney disease. TECHNIQUE: Real-time ultrasound scanning of the kidneys and bladder was performed by the stage producer. Community Living Coach static images are submitted for review. FINDINGS: [...] by: JOBY POLO Date: 2022-05-03 12:33 Normal [facility] FREE T4on 03-25-2022 Free T4 [Mass/Vol] 1.26 ng/dL Normal 0.76-1.46 [facility] Comment on above: Performed By: #### F T4 #### [facility] [address] [place], [place] [address] Dr. Ashok Bailey PROF CHEM 8 (BAS METB)on Anion gap [Moles/Vol] 17.6 mmol/L Normal [facility] Comment on above: Performed By: #### B MP, TSH ####[facility] [address] [place], [place] [address]YyAlex Bailey Calcium [Mass/Vol] 8.9 mg/dL Normal 8.5-10.1 [facility] Comment on above: Performed By: #### B MP, TSH ####[facility] [address] [place], [place] [address]LzAlex Bailey Chloride [Moles/Vol] 97 mmol/L Critically low 98-107 [facility] Comment on above: Performed By: #### B ROBERTO, TSH ####[facility] [address] [place] [address]Dr. Ashok Bailey CO2 [Moles/Vol] 22.2 mmol/L Normal 21.0-32.0 [facility] Comment on above: Performed By: #### B ROBERTO, TSH ####[facility] [address] [place] [address]Dr. Ashok Bailey Creatinine [Mass/Vol] 2.42 mg/dL Critically high 0.55-1.02 [facility] Comment on above: Performed By: #### B ROBERTO, TSH ####[facility] [address] [place], [place] [address]Dr. Ashok Bailey EGFR-AF MONTENEGRIN 24 mL/min/1.73m2 Critically low >=60 [facility] Comment on above: Performed By: #### B ROBERTO, TSH ####[facility] [address] [place], [place] [address]Dr. Ashok Bailey EGFR-NON AF MONTENEGRIN 20 mL/min/1.73m2 Critically low >=60 [facility] Comment on above: Performed By: #### B ROBERTO, TSH ####[facility] [address] [place], [place] [address]Dr. Ashok Bailey Glucose [Mass/Vol] 84 mg/dL Normal 74-106 [facility] Comment on above: Performed By: #### Becki MEJIA, TSH ####[facility] [address] [place], [place] [address]Dr. Ashok Bailey Potassium [Moles/Vol] 4.8 mmol/L Normal 3.5-5.1 [facility] Comment on above: Performed By: #### B ROBERTO, TSH ####[facility] [address] [place], [place] [address]Dr. Ashok Bailey Sodium [Moles/Vol] 132 mmol/L Critically low 136-145 [facility] Comment on above: Performed By: #### B ROBERTO, TSH ####[facility] [address] [place], [place] [address]DrAlex Bailey Urea nitrogen [Mass/Vol] 43.0 mg/dL Critically high 7.0-18 .0 [facility] Comment on above: Performed By: #### B MP, TSH ####[facility] [address] [place] [id number]. Ashok Bailey Urea nitrogen/Creatinine [Ma ss ratio] 17.8 mg/mg Normal [facility] Comment on above: Performed By: #### B MP, TSH ####[facility] [address] [place] [id number] Bailey TSHon 03-25-2022 TSH 2.368 uIU/mL Normal 0.358-3.74 0 [facility] Comment on above: Performed By: #### B MP, TSH ####[facility] [address] [place] [id number] Bailey CPKon 11-12-2021 CK [Catalytic activity/Vol] 207 U/L Critically high 26- 192 [facility] Comment on above: Performed By: #### C MP, CK, TSH, LIPID #### [facility] [address] [place] [address] [address] Ashok Bailey FREE T4on 11-12-2021 Free T4 [Mass/Vol] 1.16 ng/dL Normal 0.76-1.46 [facility] Comment on above: Performed By: #### F T4 #### [facility] [address] [place] [address] [address] Ashok Bailey LIPID PROFILEon 11-12-2021 CHOL-HDL RATIO NORM SEE BELOW Normal [facility] Comment on above: Result Comment: 3.3 - 4.4 LOW RISK 4.4 - 7.1 AVERAGE RISK 7.1 - 11.0 MODERATE RISK >11.0 HIGH RISK Performed By: #### C MP, CK, TSH, LIPID #### [facility] [address] [place] [address] [address] Ashok Bailey Cholesterol [Mass/Vol] 215 mg/dL Critically high <=200 [facility] Comment on above: Performed By: #### C MP, CK, TSH, LIPID #### [facility] [address] [place] [address] [address] Ashok Bailey Cholesterol in HDL [Mass/Vol] 74 mg/dL Critically high 4 0-60 [facility] Comment on above: Performed By: #### C MP, CK, TSH, LIPID #### [facility] [address] [place] [address] [address] Ashok Bailey Cholesterol in LDL [Mass/Vol] 114.4 mg/dL Normal [facility] Comment on above: Performed By: #### C MP, CK, TSH, LIPID #### [facility] [address] [address] [address] Ashok Bailey Cholesterol.total/Cholestero l in HDL [Mass ratio] 2.9 {ratio} Normal [facility] Comment on above: Performed By: #### C MP, CK, TSH, LIPID #### [facility] [address] [place] [address] Dr. Ashok Bailey HDL NORMAL > or = 60 mg/dl - LOW CARDIOVASCULAR RISK <40 mg/dl - HIGH CARDIOVASCULAR RISK Normal [facility] Comment on above: Performed By: #### C MP, CK, TSH, LIPID #### [facility] [address] [address] [address] Ashok Bailey LDL CALC NORMAL SEE BELOW Normal [facility] Comment on above: Result Comment: <100 mg/dl OPTIMAL 100 - 129 mg/dl NEAR OR ABOVE OPTIMAL 130 - 159 mg/dl BORDERLINE HIGH 160 - 189 mg/dl HIGH >190 mg/dl VERY HIGH Performed By: #### C MP, CK, TSH, LIPID #### [facility] [address] [address] [address] Ashok Bailey Triglyceride [Mass/Vol] 133 mg/dL Normal <=150 T [facility] Comment on above: Performed By: #### C MP, CK, TSH, LIPID #### [facility] [address] [address] [address] Ashok Bailey VLDL CALC 26.6 mg/dL Normal [facility] Comment on above: Performed By: #### C MP, CK, TSH, LIPID #### [facility] [address] [address] [address] Ashok Bailey PROF 14(COMP METB)on 022 Albumin [Mass/Vol] 3.9 g/dL Normal 3.4-5.0 [facility] Comment on above: Performed By: #### C MP, CK, TSH, LIPID #### [facility] [address] [address] [address] Ashok Bailey Albumin/Globulin [Mass ratio] 1.1 {ratio} Normal [facility] Comment on above: Performed By: #### C MP, CK, TSH, LIPID #### [facility] [address] [address] [address] Ashok Bailey ALP [Catalytic activity/Vol] 84 U/L Normal 46-116 [facility] Comment on above: Performed By: #### C MP, CK, TSH, LIPID #### [facility] [address] [place] [address] Dr. Ashok Bailey ALT [Catalytic activity/Vol] 18 U/L Normal 14-59 [facility] Comment on above: Performed By: #### C MP, CK, TSH, LIPID #### [facility] [address] [address] [address] Ashok Bailey Anion gap [Moles/Vol] 15.1 mmol/L Normal [facility] Comment on above: Performed By: #### C MP, CK, TSH, LIPID #### [facility] [address] [place] [address] Dr. Ashok Bailey AST [Catalytic activity/Vol] 11 U/L Critically low 15- 37 [facility] Comment on above: Performed By: #### C MP, CK, TSH, LIPID #### [facility] [address] [address] [address] Ashok Bailey Bilirubin [Mass/Vol] 0.3 mg/dL Normal 0.2-1.0 [facility] Comment on above: Performed By: #### C MP, CK, TSH, LIPID #### [facility] [address] [address] [address] Ashok Bailey Calcium [Mass/Vol] 9.3 mg/dL Normal 8.5-10.1 [facility] Comment on above: Performed By: #### C MP, CK, TSH, LIPID #### [facility] [address] [place] [address] Dr. Ashok Bailey Chloride [Moles/Vol] 101 mmol/L Normal 98-107 [facility] Comment on above: Performed By: #### C MP, CK, TSH, LIPID #### [facility] [address] [place] [address] Dr. Ashok Bailey CO2 [Moles/Vol] 22.9 mmol/L Normal 21.0-32.0 [facility] Comment on above: Performed By: #### C MP, CK, TSH, LIPID #### [facility] [address] [place] [address] Dr. Ashok Bailey Creatinine [Mass/Vol] 1.67 mg/dL Critically high 0.55-1.02 [facility] Comment on above: Performed By: #### C MP, CK, TSH, LIPID #### [facility] [address] [place] [address] Dr. Ashok Bailey EGFR-AF MONTENEGRIN 36 mL/min/1.73m2 Critically low >=60 [facility] Comment on above: Performed By: #### C MP, CK, TSH, LIPID #### [facility] [address] [place] [address] Dr. Ashok Bailey EGFR-NON AF MONTENEGRIN 30 mL/min/1.73m2 Critically low >=60 [facility] Comment on above: Performed By: #### C MP, CK, TSH, LIPID #### [facility] [address] [place] [address] Dr. Ashok Bailey Globulin (S) [Mass/Vol] 3.5 g/dL Normal T [facility] Comment on above: Performed By: #### C MP, CK, TSH, LIPID #### [facility] [address] [place] [address] Dr. Ashok Bailey Glucose [Mass/Vol] 96 mg/dL Normal 74-106 [facility] Comment on above: Performed By: #### C MP, CK, TSH, LIPID #### [facility] [address] [place] [address] Dr. Ashok Bailey Potassium [Moles/Vol] 5.0 mmol/L Normal 3.5-5.1 [facility] Comment on above: Performed By: #### C MP, CK, TSH, LIPID #### [facility] [address] [place] [address] Dr. Ashok Bailey Protein [Mass/Vol] 7.4 g/dL Normal 6.4-8.2 [facility] Comment on above: Performed By: #### C MP, CK, TSH, LIPID #### [facility] [address] [place] [address] Dr. Ashok Bailey Sodium [Moles/Vol] 134 mmol/L Critically low 136-145 Th [facility] Comment on above: Performed By: #### C MP, CK, TSH, LIPID #### [facility] [address] [place] [address] Dr. Ashok Bailey Urea nitrogen [Mass/Vol] 27.0 mg/dL Critically high 7.0-18 .0 [facility] Comment on above: Performed By: #### C MP, CK, TSH, LIPID #### [facility] [address] [place] [address] Dr. Ashok Bailey Urea nitrogen/Creatinine [Ma ss ratio] 16.2 mg/mg Normal [facility] Comment on above: Performed By: #### C MP, CK, TSH, LIPID #### [facility] [address] [place] [address] Dr. Ashok Bailey TSHon 11-12-2021 TSH 3.073 uIU/mL Normal 0.358-3.74 0 [facility] Comment on above: Performed By: #### C MP, CK, TSH, LIPID #### [facility] [address] [place] [address] Dr. Ashok Bailey COMPREHENSIVE METABOLIC PANE [facility] 05-30-2021 Albumin [Mass/Vol] 4.7 g/dL Normal 3.6-5.1 [facility] Comment on above: Performed By: #### 7 600, 34760 #### [facility] [address], [address] [place] [address] Glass Designer: Austin Tobin MD Albumin/Globulin [Mass ratio] 1.8 {ratio} Normal 1.0-2 .5 [facility] Comment on above: Performed By: #### 7 600, 25562 #### [facility] of [address] [address] Glass Designer: Austin Tobin MD ALP [Catalytic activity/Vol] 84 U/L Normal 37-153 [facility] Comment on above: Performed By: #### 7 600, 34420 #### [facility] of [address], [address] [place] [address] Glass Designer: Austin Tobin MD ALT [Catalytic activity/Vol] 13 U/L Normal 6-29 [facility] Comment on above: Performed By: #### 7 600, 97711 #### [facility] of [address] [address] Glass Designer: Austin Tobin MD AST [Catalytic activity/Vol] 12 U/L Normal 10-35 [facility] Comment on above: Performed By: #### 7 600, 97357 #### [facility] [address] [address] Glass Designer: Austin Tobin MD Bilirubin [Mass/Vol] 0.3 mg/dL Normal 0.2-1.2 [facility] Comment on above: Performed By: #### 7 600, 20226 #### [facility] of [address] [address] Glass Designer: Austin Tobin MD BUN/CREATININE RATIO NOT APPLICABLE Normal 6-22 [facility] Comment on above: Performed By: #### 7 600, 21382 #### [facility] [address] [address] Glass Designer: Austin Tobin MD Calcium [Mass/Vol] 10.2 mg/dL Normal 8.6-10.4 [facility] Comment on above: Performed By: #### 7 600, 46139 #### [facility] of [address], [address] [place] [address] Glass Designer: Austin Tobin MD Chloride [Moles/Vol] 99 mmol/L Normal 98-110 [facility] Comment on above: Performed By: #### 7 600, 78720 #### [facility] of [address], [address] [place] [address] Glass Designer: Austin Tobin MD CO2 [Moles/Vol] 29 mmol/L Normal 20-32 [facility] Comment on above: Performed By: #### 7 600, 63912 #### [facility] of [address], [address] [place] [address] Glass Designer: Austin Tobin MD Creatinine [Mass/Vol] 0.71 mg/dL Normal 0.60-0.[address] [facility] Comment on above: Result Comment: For patients >49 years of age, the reference limit for Creatinine is approximately 13% higher for people identified as -Panamanian. Performed By: #### 7 600, 07997 #### [facility] of [address], [address] [place] [address] Glass Designer: Austin Tobin MD eGFR NON-AFR. MONTENEGRIN 84 mL/min/1.73m2 Normal > OR = 60 [facility] Comment on above: Performed By: #### 7 600, 14587 #### [facility] of [address], [address] [place] [address] Glass Designer: Austin Tobin MD GFR/1.73 sq M.predicted rosa m g blacks MDRD (S/P/Bld) [Vol rate/Area] 97 mL/min/{1.73_m2} Normal > OR = 60 [facility] Comment on above: Performed By: #### 7 600, 34553 #### [facility] of [address], [address] [place] [address] Glass Designer: Austin Tobin MD Globulin (S) [Mass/Vol] 2.6 g/dL Normal 1.9-3.7 [facility] Comment on above: Performed By: #### 7 600, 19093 #### [facility] of [address], [address] [place] [address] Glass Designer: Austin Tobin MD Glucose [Mass/Vol] 86 mg/dL Normal 65-99 [facility] Comment on above: Result Comment: Fasting reference interval Performed By: #### 7 600, 47976 #### [facility] of [address], [address] [place] [address] Glass Designer: Austin Tobin MD Potassium [Moles/Vol] 4.4 mmol/L Normal 3.5-5.3 [facility] Comment on above: Performed By: #### 7 600, 98215 #### [facility] of [address], [address] [place] [address] Glass Designer: Austin Tobin MD Protein [Mass/Vol] 7.3 g/dL Normal 6.1-8.1 [facility] Comment on above: Performed By: #### 7 600, 80127 #### [facility] of [address], [address] [place] [address] Glass Designer: Austin Tobin MD Sodium [Moles/Vol] 135 mmol/L Normal 135-146 [facility] Comment on above: Performed By: #### 7 600, 68926 #### [facility] of [address] [address] Glass Designer: Austin Tobin MD Urea nitrogen [Mass/Vol] 10 mg/dL Normal 7-25 [facility] Comment on above: Performed By: #### 7 600, 43246 #### [facility] of [address], [address] [place] [address] Glass Designer: Austin Tobin MD LIPID PANEL, [facility] 05-05 Cholesterol [Mass/Vol] 214 mg/dL High <200 [facility] Comment on above: Performed By: #### 7 600, 35459 #### [facility] of [address], [address] [place] [address] Glass Designer: Austin Tobin MD Cholesterol in HDL [Mass/Vol] 85 mg/dL Normal > OR = 50 [facility] Comment on above: Performed By: #### 7 600, 64191 #### [facility] [address] [address] Glass Designer: Austin Tobin MD Cholesterol in LDL [Mass/Vol] [...] LDL-C. Jordan SS et al. JAUN. 2013;310(19): 1195-6093 (http://education.DutyCalculator/faq/KPQ614) Performed By: #### 7 600, 21992 #### [facility] [address] [address] Glass Designer: Austin Tobin MD Cholesterol.total/Cholestero l in HDL [Mass ratio] 2.5 {ratio} Normal <5.0 [facility] Comment on above: Performed By: #### 7 600, 63618 #### [facility] [address] [address] Glass Designer: Austin Tobin MD NON HDL CHOLESTEROL 129 mg/dL (calc) Normal <130 [facility] Comment on above: Result Comment: For patients with diabetes plus 1 major ASCVD risk factor, treating to a non-HDL-C goal of <100 mg/dL (LDL-C of <70 mg/dL) is considered a therapeutic option. Performed By: #### 7 600, 49962 #### [facility] [address] [address] Glass Designer: Austin Tobin MD Triglyceride [Mass/Vol] 113 mg/dL Normal <150 [facility] Comment on above: Performed By: #### 7 600, 18711 #### [facility] [address] [address] [place] [address] Glass Designer: Austin Tobin MD COMPREHENSIVE METABOLIC PANE [facility] 05-04-2021 Albumin [Mass/Vol] 4.3 g/dL Normal 3.6-5.1 [facility] Comment on above: Performed By: #### 7 600, 33823 #### [facility] of [address], [address] [place] [address] Glass Designer: Austin Tobin MD Albumin/Globulin [Mass ratio] 1.8 {ratio} Normal 1.0-2 .5 [facility] Comment on above: Performed By: #### 7 600, 92479 #### [facility] of [address] [address] Glass Designer: Austin Tobin MD ALP [Catalytic activity/Vol] 82 U/L Normal 37-153 [facility] Comment on above: Performed By: #### 7 600, 49703 #### [facility] of [address] [address] Glass Designer: Austin Tobin MD ALT [Catalytic activity/Vol] 11 U/L Normal 6-29 [facility] Comment on above: Performed By: #### 7 600, 64670 #### [facility] of [address] [address] Glass Designer: Austin Tobin MD AST [Catalytic activity/Vol] 12 U/L Normal 10-35 [facility] Comment on above: Performed By: #### 7 600, 17670 #### [facility] of [address] [address] Glass Designer: Austin Tobin MD Bilirubin [Mass/Vol] 0.4 mg/dL Normal 0.2-1.2 [facility] Comment on above: Performed By: #### 7 600, 71799 #### [facility] of [address] [address] Glass Designer: Austin Tobin MD BUN/CREATININE RATIO NOT APPLICABLE Normal 6-22 [facility] Comment on above: Performed By: #### 7 600, 43099 #### [facility] [address], [address] [place] [address] Glass Designer: Austin Tobin MD Calcium [Mass/Vol] 9.4 mg/dL Normal 8.6-10.4 [facility] Comment on above: Performed By: #### 7 600, 47794 #### [facility] [address], [address] [place] [address] Glass Designer: Austin Tobin MD Chloride [Moles/Vol] 98 mmol/L Normal 98-110 [facility] Comment on above: Performed By: #### 7 600, 12534 #### [facility] [address], [address] [place] [address] Glass Designer: Austin Tobin MD CO2 [Moles/Vol] 28 mmol/L Normal 20-32 [facility] Comment on above: Performed By: #### 7 600, 20202 #### [facility] [address] [address] Glass Designer: Austin Tobin MD Creatinine [Mass/Vol] 0.73 mg/dL Normal 0.60-0.93 [facility] Comment on above: Result Comment: For patients >49 years of age, the reference limit for Creatinine is approximately 13% higher for people identified as -Panamanian. Performed By: #### 7 600, 27649 #### [facility] [address], [address] [place] [address] Glass Designer: Austin Tobin MD eGFR NON-AFR. MONTENEGRIN 82 mL/min/1.73m2 Normal > OR = 60 [facility] Comment on above: Performed By: #### 7 600, 00354 #### [facility] of [address] [address] Glass Designer: Austin Tobin MD GFR/1.73 sq M.predicted rosa m g blacks MDRD (S/P/Bld) [Vol rate/Area] 95 mL/min/{1.73_m2} Normal > OR = 60 [facility] Comment on above: Performed By: #### 7 600, 87331 #### [facility] [address] [address] Glass Designer: Austin Tobin MD Globulin (S) [Mass/Vol] 2.4 g/dL Normal 1.9-3.7 [facility] Comment on above: Performed By: #### 7 600, 63488 #### [facility] [address] [address] Glass Designer: Austin Tobin MD Glucose [Mass/Vol] 102 mg/dL Normal 65-139 [facility] Comment on above: Result Comment: Non-fasting reference interval For someone without known diabetes, a glucose value between 100 and 125 mg/dL is consistent with prediabetes and should be confirmed with a follow-up test. Performed By: #### 7 600, 65986 #### [facility] [address] [address] Glass Designer: Austin Tobin MD Potassium [Moles/Vol] 4.3 mmol/L Normal 3.5-5.[address] [facility] Comment on above: Performed By: #### 7 600, 95013 #### [facility] [address] [address] Glass Designer: Austin Tobin MD Protein [Mass/Vol] 6.7 g/dL Normal 6.1-8.1 [facility] Comment on above: Performed By: #### 7 600, 79540 #### [facility] [address] [address] Glass Designer: Austin Tobin MD Sodium [Moles/Vol] 132 mmol/L Low 135-146 [facility] Comment on above: Performed By: #### 7 600, 81359 #### [facility] [address] [address] Glass Designer: Austin Tobin MD Urea nitrogen [Mass/Vol] 12 mg/dL Normal 7-25 [facility] Comment on above: Performed By: #### 7 600, 54932 #### [facility] [address], [address] [place] [address] Glass Designer: Austin Tobin MD LIPID PANEL, [facility] Cholesterol [Mass/Vol] 168 mg/dL Normal <200 [facility] Comment on above: Order Comment: FASTI NG:NO FASTING: NO Performed By: #### 7 600, 32261 #### [facility] [address], [address] [place] [address] Glass Designer: Austin Tobin MD Cholesterol in HDL [Mass/Vol] 79 mg/dL Normal > OR = 50 [facility] Comment on above: Order Comment: FASTI NG:NO FASTING: NO Performed By: #### 7 600, 31153 #### [facility] [address], [address] [place] [address] Glass Designer: Austin Tobin MD Cholesterol in LDL [Mass/Vol] 73 mg/dL Normal [facility] Comment on above: Order Comment: FASTI NG:NO FASTING: NO Result Comment: Refe rence range: <100 Desirable range <100 mg/dL for primary prevention; <70 mg/dL for patients with CHD or diabetic patients with > or = 2 CHD risk factors. LDL-C is now calculated using the Jordan-Emily calculation, which is a validated novel method providing better accuracy than the Friedewald equation in the estimation of LDL-C. Jordan HOU et al. JAUN. 2013;310(19): 9607-6090 (http://education.[employer].Merkle/faq/PXR135) Performed By: #### 7 600, 06802 #### [facility] [address], [address] [place] [address] Glass Designer: Austin Tobin MD Cholesterol.total/Cholestero l in HDL [Mass ratio] 2.1 {ratio} Normal <5.0 [facility] Comment on above: Order Comment: FASTI NG:NO FASTING: NO Performed By: #### 7 600, 08789 #### [facility] [address], [address] [place] [address] Glass Designer: Austin Tobin MD NON HDL CHOLESTEROL 89 mg/dL (calc) Normal <130 [facility] Comment on above: Order Comment: FASTI NG:NO FASTING: NO Result Comment: For patients with diabetes plus 1 major ASCVD risk factor, treating to a non-HDL-C goal of <100 mg/dL (LDL-C of <70 mg/dL) is considered a therapeutic option. Performed By: #### 7 600, 86367 #### [facility] [address], [address] [place] [address] Glass Designer: Austin Tobin MD Triglyceride [Mass/Vol] 79 mg/dL Normal <150 [facility] Comment on above: Order Comment: FASTI NG:NO FASTING: NO Performed By: #### 7 600, 11601 #### [facility] [address], [address] [place] [address] Glass Designer: Austin Tobin MD Vital Signs Date Time Vital Sign Value Performing Clinician Facility 10-24-2023 10:52-0400 Body height 160.02 cm [facility] 10-24-2023 10:52-0400 Body mass index (BMI) [Ratio] 24.5 kg/m2 [facility] 10-24-2023 10:52-0400 Body temperature 97.8 [degF] [facility] 10-24-2023 10:52-0400 Body weight 62.76 kg [facility] 10-24-2023 10:52-0400 Diastolic blood pressure 67 mm[Hg] [facility] 10-24-2023 10:52-0400 Heart rate 80 /min [facility] 10-24-2023 10:52-0400 Respiratory rate 18 /min [facility] 10-24-2023 10:52-0400 SaO2% (BldA) [Mass fraction] 99 % [facility] 10-24-2023 10:52-0400 Systolic blood pressure 126 mm[Hg] [facility] 03-30-2023 08:33-0500 Body height 160 cm Good UREÑA [facility] Phone[facility] 03-30-2023 08:33-0500 Body mass index (BMI) [Ratio] 24.66 kg/m2 Good Dan LEAD SOFTWARE DEVELOPER[employer] Work Phone[facility] 03-30-2023 08:33-0500 Body temperature 97.9 [degF] Good Dan LEAD SOFTWARE DEVELOPER-MANAGER [employer] [facility] 03-30-2023 08:33-0500 Body weight 63.14 kg Good Dan LEAD SOFTWARE DEVELOPER-MANAGER [employer] [facility] 03-30-2023 08:33-0500 Diastolic blood pressure 58 mm[Hg] Good Dan LEAD SOFTWARE DEVELOPER-MANAGER [employer] [facility] 03-30-2023 08:33-0500 Heart rate 78 /min Good Dan LEAD SOFTWARE DEVELOPER-MANAGER [employer] Work Phone[facility] 03-30-2023 08:33-0500 SaO2% (BldA) [Mass fraction] 100 % Good Dan LEAD SOFTWARE DEVELOPER-MANAGER [employer] Work Phone: [employer] 03-30-2023 08:33-0500 Systolic blood pressure 118 mm[Hg] Good Dan LEAD SOFTWARE DEVELOPER-MANAGER [employer]ATION Work Phone: [employer] 03-28-2023 11:20-0500 Body height 160.02 cm Bri [employer] Other [employer] Other 03-28-2023 11:20-0500 Body mass index (BMI) [Ratio] 24.83 kg/m2 DXYlokesh Navagis Other [employer] Other 03-28-2023 11:20-0500 Body temperature 96.9 [degF] Bri Navagis Other [facility] Other 03-28-2023 11:20-0500 Body weight 63.59 kg Aziz Bakhous Other [facility] Other 03-28-2023 11:20-0500 Diastolic blood pressure 70 mm[Hg] Aziz Bakhous Other [facility] Other 03-28-2023 11:20-0500 Systolic blood pressure 138 mm[Hg] Aziz Bakhous Other [facility] Other 10-11-2022 14:20-0400 Body height 160.02 cm Aziz Bakhous Other [facility] Other 10-11-2022 14:20-0400 Body mass index (BMI) [Ratio] 24.8 kg/m2 Aziz Bakhous Other [facility] Other 10-11-2022 14:20-0400 Body temperature 96.4 [degF] Aziz Bakhous Other [facility] Other 10-11-2022 14:20-0400 Body weight 63.5 kg Aziz Bakhous Other [facility] Other 10-11-2022 14:20-0400 Diastolic blood pressure 60 mm[Hg] Aziz Bakhous Other [employer] Other 10-11-2022 14:20-0400 Respiratory rate 18 /min Aziz Bakhous Other [facility] Other 10-11-2022 14:20-0400 Systolic blood pressure 130 mm[Hg] Aziz Bakhous Other [facility] Other 04-04-2023 10:20-0400 Body height 160.02 cm Azlokesh Bakhous Other [facility] Other 06-07-2022 10:20-0400 Body mass index (BMI) [Ratio] 24.55 kg/m2 Aziz Bakhous Other [facility] Other 06-07-2022 10:20-0400 Body temperature 97.2 [degF] Aziz Bakhous Other [facility] Other 06-07-2022 10:20-0400 Body weight 62.87 kg Aziz Bakhous Other [facility] Other 06-07-2022 10:20-0400 Diastolic blood pressure 72 mm[Hg] Aziz Bakhous Other [employer] Other 06-07-2022 10:20-0400 Respiratory rate 18 /min Azlokesh Bakhous Other [facility] Other 06-07-2022 10:20-0400 SaO2% (BldA) [Mass fraction] 97 % Aziz Bakhous Other [facility] Other 06-07-2022 10:20-0400 Systolic blood pressure 130 mm[Hg] Aziz Bakhous Other [facility] Other 04-26-2022 09:40-0500 Body height Aziz Bakhous Other [facility] Other 04-26-2022 09:40-0500 Body mass index (BMI) [Ratio] 24.97 kg/m2 Aziz Bakhous Other [facility] Other 04-26-2022 09:40-0500 Body weight 63.96 kg Bri Davis Other [facility] [facility] [employer] Other 04-26-2022 09:40-0500 Diastolic blood pressure 84 mm[Hg] Bri Davis Other [facility] Other 04-26-2022 09:40-0500 SaO2% (BldA) [Mass fraction] 98 % Bri Davis Other [facility] Other 04-26-2022 09:40-0500 Systolic blood pressure 150 mm[Hg] Bri Davis Other [facility] [employer] Other Encounters Encounter Date Encounter Type Care Provider Facility Start: 10-24-2023 End: 10-24-2023 ambulatory [facility] Work Phone: Start: 10-24-2023 End: 10-24-2023 Patient encounter procedure [facility] Work Phone: Start: 10-17-2023 Non-patient / Non-visit [facility] [employer] Work Phone: Start: 10-16-2023 End: 10-16-2023 ambulatory Diamond Mooney MD Facility: [place] Start: 10-10-2023 End: 10-10-2023 ambulatory [facility] Start: 09-26-2023 End: 09-26-2023 ambulatory [facility] Start: 07-14-2023 End: 07-14-2023 ambulatory YULIA HERNÁNDEZ Not Available Start: 06-28-2023 End: 06-29-2023 ambulatory [facility] Start: 06-28-2023 End: 06-28-2023 ambulatory CARSON G [facility] Start: 06-03-2023 Orders Only Carson Mustapha [facility] DO Work Phone: [facility] Comment on above: Special screening fo r malignant neoplasm of colon (Primary Dx) Start: 05-29-2023 Refill Taniaetta Donald SUBSTATION ENGINEER [facility] Comment on above: 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 Start: 05-19-2023 End: 05-19-2023 ambulatory YULIA HERNÁNDEZ Not Available Start: 2023 End: 2023 ambulatory Aden Baca Facility:[facility] Start: 05-02-2023 Refill Trixie Jeremy SUBSTATION ENGINEER Evangelist gomez [facility] Comment on above: 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 Start: 04-29-2023 Refill Good L Ni LEAD SOFTWARE DEVELOPER-MANAGER AVIATION Work Phone: [facility] Start: 04-28-2023 End: 04-28-2023 ambulatory [facility] Start: 04-17-2023 Refill Trixie Jeremy SUBSTATION ENGINEER Evangelist gomez [facility] Comment on above: Essential hypertensi on Start: 04-07-2023 Bamboo flowsheet Yulia mullen PA Work Phone: [facility] Start: 04-07-2023 Bamboo flowsheet Yulia mullen PA Work Phone: [facility] Start: 04-07-2023 End: 04-07-2023 ambulatory YULIA L EDGAR Not Available Start: 04-07-2023 End: 04-07-2023 Patient encounter procedure Yulia eHrnández PA Work Phone: [facility] Comment on above: Actinic keratosis (P rimary Dx) Start: 03-31-2023 End: 04-01-2023 [facility] Start: 03-30-2023 End: 03-30-2023 Office outpatient visit 15 minutes Good L Ni LEAD SOFTWARE DEVELOPER-MANAGER AVIATION Work Phone: [facility] Comment on above: Chronic pain of both shoulders (Primary Dx); Peripheral vascular disease ([facility]); Stage 3b chronic kidney disease ([facility]); Smoker; Lumbosacral spondylosis without myelopathy Start: 03-30-2023 End: 03-30-2023 ambulatory [facility] Start: 03-28-2023 End: 03-28-2023 ambulatory [facility] Bakhous Other [employer] Other Start: 03-28-2023 Office outpatient vi sit 25 minutes Aziz Bakhous [facility] Start: 03-20-2023 Refill Carson cordero DO Work Phone: [facility] Start: 03-10-2023 End: 03-10-2023 ambulatory YULIA Michelle MEYERSEDGAR Not Available Start: 03-07-2023 End: 04-06-2023 ambulatory [facility] Start: 03-03-2023 Orders Only Good Dan LEAD SOFTWARE DEVELOPER-MANAGER AVIATION Work Phone: [facility] Start: 03-02-2023 Refill Farnaz Tee [facility] Comment on above: 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 Start: 02-20-2023 End: 03-06-2023 ambulatory [facility] Start: 10-11-2022 End: 10-11-2022 ambulatory [facility] Other [employer] Other Start: 10-11-2022 Office outpatient vi sit 25 minutes Aziz Bakhous [facility] Start: 06-07-2022 End: 06-07-2022 ambulatory Aliz Bakhous Other [employer] Other Start: 06-07-2022 Patient encounter procedure Bri Chaos [facility] Start: 06-01-2022 End: 06-02-2022 ambulatory BRI CHAOS Facility:[facility] Start: 05-03-2022 End: 05-04-2022 ambulatory BRI DAVIS Facility:[facility] Start: 04-26-2022 End: 04-26-2022 ambulatory Bri Davis Other [facility] [employer] Other Start: 04-26-2022 Office outpatient ne w 30 minutes Bri Chaos [facility] Start: 03-25-2022 End: 03-26-[address] CARSON SULLIVAN Facility:[facility] Start: 11-12-2021 End: 11-13-[address] CARSON SULLIVAN Facility:[facility] Start: 11-04-2021 End: 11-04-2021 ambulatory SABRINA MANUEL Facility:[facility] Start: 10-07-2021 End: 10-07-2021 ambulatory SABRINA MANUEL Facility:[facility] Procedures Date Procedure Procedure Detail Performing Clinician Start: 04-28-2023 Adult depression scr eening assessment Good Dan LEAD SOFTWARE DEVELOPER-MANAGER AVIATION Work Phone: Start: 04-07-2023 CRYOTHERAPY SKIN LESION Yulia FOSTER Work Phone: Start: 03-30-2023 Follow-up visit Follow-up GOOD DAN Start: 03-30-2023 Adult depression scr eening assessment Good Dan LEAD SOFTWARE DEVELOPER-MANAGER AVIATION Work Phone: Start: 02-09-2023 Adult depression scr eening assessment Good Dan LEAD SOFTWARE DEVELOPER-MANAGER [employer]IATION Work Phone: Plan of Treatment Date Care Activity Detail Author Start: 04-28-2024 Adult BMI Screening Adult BMI Screen ing [facility] Start: 04-28-2024 Depression Screening Depression Scre ening [facility] Start: 04-28-2024 Fall Risk Screening Fall Risk Screen ing [facility] Start: 04-28-2024 Tobacco Screening Tobacco Screening [facility] Start: 04-10-2024 DTaP,Tdap and Td Vac cines (2 - Td or Tdap) DTaP,Tdap and Td Vaccines (2 - Td or Tdap) [facility] Start: 03-30-2024 Adult BMI Screening Adult BMI Screen ing [facility] Start: 03-30-2024 Depression Screening Depression Scre ening [facility] Start: 03-30-2024 Fall Risk Screening Fall Risk Screen ing [facility] Start: 03-30-2024 Tobacco Screening Tobacco Screening [facility] Start: 02-10-2024 Adult BMI Screening Adult BMI Screen ing [facility] Start: 02-10-2024 Depression Screening Depression Scre ening [facility] Start: 02-10-2024 Fall Risk Screening Fall Risk Screen ing [facility] Start: 02-10-2024 Tobacco Screening Tobacco Screening [facility] Start: 08-17-2023 End: 08-17-2023 Patient encounter procedure 08/17/2023 11:40 AM EDT Office Visit [facility] [address] [place] [address] [facility] Start: 08-03-2023 Medicare Annual Well ness Visit Medicare Annual Wellness Visit [facility] Start: 07-19-2023 Administration of varicella zoster vaccine Zoster (Shingles) Vaccine (1 of 2) [facility] Comment on above: Postponed from 05/10 (Patient Refused) Start: 05-19-2023 End: 05-19-2023 Patient encounter procedure 05/19/2023 11:50 AM EDT Office Visit [facility] [address] [place] [address] Yulia Hernández PA [address] [place] [address] [facility] Start: 04-07-2023 End: 04-07-2023 Patient encounter procedure 04/07/2023 10:20 AM EST Office Visit [facility] [address] [place] [address] Yulia Hernández PA [address] [place] [address] Arrived [facility] Comment on above: [...] of both shoulders Expected: 03/30/2023, Expires: 03/30/2024 [facility] Comment on above: Expected: 03/30/2023 , Expires: 03/30/2024 Start: 03-07-2023 End: 03-07-2023 Patient encounter procedure 03/07/2023 2:00 PM EST Appointment [facility] [address] [place] [address] [facility] Start: 02-03-2023 Screening for malign ant neoplasm of colon Colon Cancer Screening 3 Year Cologrd [facility] Start: 05-10-1963 Adult BMI Follow Up Plan Adult BMI Follow Up Plan [facility] Start: 1945 Tobacco Counseling Tobacco Counselin g [facility] Cologuard [facility] Cologuar d [facility] Lab Routine Special screening for malignant neoplasm of colon Ordered: 06/03/2023 [employer] Work Phone: Comment on above: Ordered: 06/03/2023 Renal function 2000 panel - Serum or Plasma [facility] Immunizations Immunization Date Immunization Notes Care Provider Fa cility 02-09-2023 Influenza Vaccine, Quadrivalent, Adjuvanted Good Dan LEAD SOFTWARE DEVELOPER-MANAGER AVIATION Work Phone: [facility] 12-04-2020 influenza, high dose seasonal, preservative-free Good Ni LEAD SOFTWARE DEVELOPER-MANAGER AVIATION Work Phone: [facility] 11-25-2019 influenza, injectabl e, quadrivalent, preservative free Good Ni LEAD SOFTWARE DEVELOPER-MANAGER [employer]IATION Work Phone: [facility] 05-18-2019 Seasonal trivalent influenza vaccine, adjuvanted, preservative free Good Ni LEAD SOFTWARE DEVELOPER-MANAGER [employer]ATION Work Phone: [facility] 11-19-2018 Seasonal trivalent influenza vaccine, adjuvanted, preservative free Good Ni LEAD SOFTWARE DEVELOPER-MANAGER [employer]IATION Work Phone: [facility] 11-20-2017 influenza, injectabl e, quadrivalent, contains preservative Good Ni LEAD SOFTWARE DEVELOPER-MANAGER [employer]ATION Work Phone: [facility] 11-20-2017 Seasonal trivalent influenza vaccine, adjuvanted, preservative free Good Ni LEAD SOFTWARE DEVELOPER-MANAGER [employer]ATION Work Phone: [facility] 11-25-2016 influenza, injectabl e, quadrivalent, preservative free Good Ni LEAD SOFTWARE DEVELOPER-MANAGER AVIATION Work Phone: [facility] 11-25-2016 influenza, seasonal, injectable Good Ni LEAD SOFTWARE DEVELOPER-MANAGER [employer]IATION Work Phone: [facility] 03-14-2016 pneumococcal polysaccharide vaccine, 23 valent Good Ni LEAD SOFTWARE DEVELOPER-MANAGER [employer]ATION Work Phone: [facility] 12-10-2015 influenza, high dose seasonal, preservative-free Good Ni LEAD SOFTWARE DEVELOPER-MANAGER [employer]IATION Work Phone: [facility] 03-10-2015 pneumococcal conjuga te vaccine, 13 valent Good Ni LEAD SOFTWARE DEVELOPER-MANAGER [employer]IATION Work Phone: [facility] 12-08-2014 influenza, seasonal, injectable, preservative free Good Ni LEAD SOFTWARE DEVELOPER-MANAGER AVIATION Work Phone: [facility] 04-10-2014 tetanus toxoid, redu savnana diphtheria toxoid, and acellular pertussis vaccine, adsorbed Good Dan [facility] Work Phone: [facility] 12-23-2013 influenza virus vacc ine, unspecified formulation Good Dan [facility] Work Phone: [facility] 01-28-2013 pneumococcal conjuga te vaccine, 13 valent Good Dan [facility] Work Phone: [facility] Payers Date Payer Category Payer Self-pay 2023 Private Health Insurance 2013 Medicare [id number] 1959 Medicare [id number] 2.16. [id number] 1945 Unknown [id number] 2.16.84 0.1.737869.3.579.2.593 1945 Unknown [id number] 2.16.84 0.1.857809.3.579.2.593 1945 Unknown [id number] 2.16.84 0.1.699965.3.579.2.593 1947 Unknown [id number] 2.16.84 0.1.686258.3.579.2.593 1947 Unknown [id number] 2.16.84 0.1.459461.3.579.2.593 1947 Unknown [id number] 2.16.84 0.1.918479.3.579.2.593 1947 Unknown [id number] 2.16.8 40.1.869219.3.579.2.1286 1947 Unknown [id number] 2.16.84 0.1.391940.3.579.2.1286 1947 Unknown [id number] 2.16.8 40.1.244378.3.579.2.1286 8 Unknown [id number] 2.16.8 40.1.613267.3.579.2.1286 1947 Unknown [id number] 2.16.84 0.1.663205.3.579.2.1259 1947 Unknown [id number] 2.16.84 0.1.580247.3.579.2.1259 1947 Unknown [id number] 2.16.84 0.1.891584.3.579.2.1259 1947 Unknown [id number] 2.16.840 .1.033975.3.579.2.1259 1947 Unknown [id number] 2.16.8 40.1.804237.3.579.2.1286 1947 Unknown [id number] 2.16.8 40.1.624203.3.579.2.1285 1947 Unknown [id number] 2.16.8 40.1.965186.3.579.2.1286 1947 Unknown [id number] 2.16.8 40.1.161358.3.579.2.1285 1947 Unknown [id number] 2.16.8 40.1.290522.3.579.2.1286 8 Unknown [id number] 2.16. 840.1.269664.3.579.2.196 Medicare Medicare [id number] Unknown [id number] 2.16.8 40.1.493583.3.579.2.531 Social History Date Type Detail Facility Start: 07-18-2022 End: 08-02-2022 Sex Assigned At [facility] Start: 11-16-2021 Tobacco smoking status PRIS Smokes tobacco daily [facility] History of tobacco use Cigarette Smoker P [facility] Start: 11-16-2021 End: 07-18-2022 Cigarettes smoked current (pack per day) - Reported 1 [facility] Start: 11-16-2021 Tobacco use and exposure Smokeless tobacco non-user [facility] Start: 02-09-2023 End: 04-28-2023 Alcohol intake Lifetime non-drinker (finding) [facility] Do you belong to any clubs or organizations such as religious groups, unions, fraternal or athletic groups, or school groups? No [facility] Are you now , , , , never or living with a partner? [facility] How often to you hav e a drink containing alcohol? Monthly or less [facility] How many standard dr inks containing alcohol do you have on a typical day? 1 or 2 [facility] How often do you hav e 6 or more drinks on 1 occasion? Never [facility] How hard is it for y ou to pay for the very basics like food, housing, medical care, and heating Not hard at all [facility] Do you feel stress - tense, restless, nervous, or anxious, or unable to sleep at night because your mind is troubled all the time - these days [OSQ] Only a little [facility] Start: 1945 Sex Assigned At Not on file [facility] Start: 03-10-2023 Tobacco smoking status [facility] Tobacco smoking consumption unknown 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 Cryotherapy performed today; see procedure note. Discussed this particular lesion is too thick for Efudex. Patient verbalized understanding. Follow upin 6 weeks. Diagnosis: Actinic keratosis Indication: Precancerous Location: see skin exam Consent: Verbal consent was obtained and risks were discussed, including, but not limited to risks of scarring, darker or splunk consultant pigmentary changes, recurrence, incomplete removal and infection. 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 The pain has been going on for about 2 years or more but it has progressively worsened especially on the left side in the last 6 months. She has never received any injections in her shoulders that she can think of. She has no numbness or tingling in herarms. Problem List Items Addressed This Visit Cardiovascular and Mediastinum Peripheral vascular disease ([facility]) Genitourinary Stage 3b chronic kidney disease ([facility]) Other Visit Diagnoses Chronic pain of both [...] past medical history, past social history, past surgicalhistory and problem list. Past Medical History: Diagnosis Date Anxiety Basal cell carcinoma of skin Carotid bruit Encounter for hepatitis C screening test for low risk patient 08/21/2015 neg Essential hypertension Femoral bruit Hiatal hernia Hyperglycemia Hyperlipidemia Hypokalemia Migraine Osteopenia Peripheral vascular disease ([facility]) Screen for colon cancer 02/04/2020 cologuard-negative Spinal [...] 1 tablet by mouth every morning 90 tablet3 lisinopriL (PRINIVIL,ZESTRIL) 40 mg tablet take 1 tablet by mouth once daily 90 tablet 3 lutein 10 mg tablet Take 1 tablet by mouth daily. metoprolol succinate XL (TOPROL XL) 25 mg 24 hr tablet take 1 tablet by mouth every morning 90 tablet 1 xa-zsu-zqjka-calcium carb-K1 400 mcg-500 mg calcium-20 mcg tablet Take 1 tablet by mouth in the morning. 90 tablet 0 naloxone (NARCAN) 4 mg/actuation spray,non-aerosol nasal spray Administer 1 spray (4 mg total) intoeach nostril as needed. 1 spray Q2-3 minutes [...] (100 mg total) by mouth 3 (three) timesa day as needed for cough. (Patient not taking: Reported on 03/30/2023) 30 capsule 0 loratadine 10 mg capsule Take 1 tablet by mouth in the morning. niacin 1,000 mg tablet extended release 1 tablet with food Orally BID (Patient not taking: Reportedon 02/09/2023) potassium chloride (KLOR-CON SPRINKLE) 10 MEQ CR capsule 2 capsules with food Orally Once a day (Patient not taking: Reported on 02/09/2023) No current facility-administered medications for this visit. (All medications reviewed and updated by provider since last office visit or hospitalization) Allergies: Sulfa (sulfonamide antibiotics), Hydrochlorothiazide, Sodtxmx-yyx-mus reductase inhibitors, and Nickel Tobacco History: Social [...] right-lower field reveals decreased breath sounds. Examination ofthe left-lower field reveals decreased breath sounds. Decreased [...] Drug Screen, Urine; Future Peripheral vascular disease ([facility]) Stage 3b chronic kidney disease ([facility]) Smoker Follow-up: Will obtain new x-rays bilateral shoulders, order sent to [facility]. Agree with stopping physical therapy if it is not making the pain any better. Patient would like a referral to Orthopedics in [place], this was placed in system. She should avoid NSAIDs due to her CKD and continue Tylenol and opioid pain management with topicalagents as discussed at last appointment. Her PVD [...] file.Pt is due for refill 2/3 - [place] Rx placed for this specific date. At next appt, consider lowering dose to lowest effective dose to help control pain. NIRANJAN HERRERA APRN-CNP 04/02/23 1244 documented in this encounterTrinity Health System West CampusCurex.Co [id number] Evaluation note* Encounter Date Diagnosis Assessment Notes Treatment Notes Treatment Clinical Notes Mar, Chronic kidney disease, stage 3a [...] WNL I asked the patient to continue wtub-nta-mcwyfbp vitamin D supplement 1999Mar, Nephrolithiasis (ICD-10 - N20.0) Renal ultrasound shows nonobstructive bilateral renal calculi which are small in size. I asked the patient to continue ample water intake [employer] Other [id number] History of Present illness Narrative* NIRANJAN Herrera - 03/03/2023 1:29 PM EST The OARRS/MAPPS database was reviewed today and found to be appropriate. No indication of medication diversion, or non compliance. Pt is due for refill 03/11/22, last filled 02/08/[address] Sullivan who is out of town. NIRANJAN Herrera 03/03/23 1332 documented in [address] encounterTr[facility] [address]Babel [facility] [id number] Miscellaneous Notes* Telephone Encounter - Farnaz Bennett CMA - 03/02/2023 2:51 PM EST Pt called and would like a refill on her NORCO. Pharmacy is listed and correct. * Telephone Encounter - NIRANJAN Herrera - 03/02/2023 2:51 PM EST Pt is due for refill 1/6 - I will send but pharmacy will not fill until this time [facility] encounter Note* Telephone Encounter - Farnaz Bennett CMA - 03/02/2023 2:51 PM EST Pt called and would like a refill on her NORCO. Pharmacy is listed and correct. [facility]12-28-2023 Telephone encounter Note* Telephone Encounter - NIRANJAN Herrera - 03/02/2023 2:51 PM EST Pt is due for refill 03/11 - I will send but pharmacy will not fill until this time [facility]08-08-2023 Evaluation note* Encounter Date Diagnosis [...] WNL I asked the patient to continue binh-ulo-wvzfkyw vitamin D supplement 1999Oct, Nephrolithiasis (ICD-10 - N20.0) Renal ultrasound shows nonobstructive bilateral renal calculi which are small in size. I asked the patient to continue ample water intake [facility] Other 04-04-2023 Evaluation note* Encounter Date Diagnosis [...] is low at 19. I patient with gizh-utu-bzrhcyl vitamin D supplement 1999Jun, Nephrolithiasis (ICD-10 - N20.0) Renal ultrasound shows nonobstructive bilateral renal calculi which are small in size. I asked the patient to continue ample water intake [facility] Other 02-21-2023 Evaluation note* Encounter Date Diagnosis [...] at home and to follow low-salt diet [employer] Other 09-01-2022 NoteOPERATIVE NOTE OPERATION DATE: 11/04/2021 [...] ensuring mobility, phacoemulsification was performed in a ajrbeml-wfl-awguwj-type fashion. After all nuclear material had been [...] up the following day for postoperative care.[facility] [id number] NoteHISTORY AND PHYSICAL EXAMINATION Date:11/03/2021 HISTORY: Patient [...] decline other than that of cataract. 2. [id number] patient was briefed in the office and [...] and go forward with this elective procedure.[facility] [id number] NoteOPERATIVE NOTE OPERATION DATE: 10/07/2021 SURGEON: Sabrina [...] ensuring mobility, phacoemulsification was performed in a rrnibxb-lvq-kcxjmo-type fashion. After all nuclear material had been [...] up the following day for postoperative care.[facility] 10-07-2021 NoteHISTORY AND PHYSICAL EXAMINATION Date:10/06/2021 [...] Pupils motility, muscle balance and confrontational visual asnchez within normal limits bilaterally. Pressures are measured [...] decline other than that of cataract. 2. [id number] patient was briefed in the office and [...] and go forward with this elective procedure.[facility]* Diagnosis Lumbosacral spondylosis without myelopathy [facility] this encounter [facility]* Diagnosis Chronic pain of both shoulders- Primary Peripheral vascular disease ([facility]) Unspecified peripheral vascular disease Stage 3b chronic kidney disease ([facility]) Smoker Tobacco use disorder Lumbosacral spondylosis without myelopathy documented in this encounter [facility]* Diagnosis Actinic keratosis- Primary documented [facility] this [facility]* Diagnosis Essential hypertension Unspecified essential hypertension documented in this encounter [facility]* Diagnosis Lumbosacral spondylosis without myelopathy documented in this encounter [facility]* Diagnosis Special screening for malignant neoplasm of colon- Primary Special screening for malignant neoplasms, colon documented in this encounter [facility]* Diagnosis Lumbosacral spondylosis without myelopathy [facility] System[facility] general Narrative - Reported* Type Description [...] Surgical History cataract surgery Hospitalization History See Sx [employer] Other Hishxmi general Narrative - Reported* Type Description Date [...] BIOPSY ON NOSE Hospitalization History See Sx [employer] Other InstructionsNot on filedocumented in this encounter [facility] SystemInstructionsNot on filedocumented in this encounter [facility] SystemInstructionsNot on filedocumented in this encounter [facility] SystemInstructionsNot on filedocumented in this encounter [facility]ructions* Attachments The following attachments cannot be sent through Care Everywhere. * Shoulder Pain Discharge Instructions (Chinese) documented in this encounterProParma Community [facility] SystemInstructionsNot on file documented in this encounterProAdams County Regional Medical CenterInstructionsNot on file documented in this encounterProAdams County Regional Medical CenterInstructionsNot on file documented in this encounterWright-Patterson Medical CenterReason for referral (narrative)* Consultation (Routine) - Pending Review Specialty Diagnoses / Procedures Referred By Darby mon Referred To Contact Orthopedic Surgery Diagnoses Chronic pain of both shoulders Good Dan APRN-CNP [address] [facility] [place] [address] Rosales Hylton MD [address] [place] [address] Referral ID Status Reason Start Date Expiration Date Visits Requested Visits Authorized [id number] Pending Review Specialty Services Required 03/30/2023 03/29/2024 1 1 [facility] Summary Purpose Family History No Family History Records Found Relationship Condition Age at Onset Recorded Date/T anne father Malignant neoplasm Unknown Unknown Heart disease Unknown family member Unknown mother Diabetes mellitus Unknown Hypertension Unknown son Unknown sister Malignant neoplasm Unknown Advance Directives No Advanced Directives Records Found Advance Directive Response Recorded Date/ Time Advance Directives No February 05, 2018 4:05pm Chief Complaint and Reason for Visit Chief Complaint RENAL 6 month f/u Reason for Visit Anemia 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 Chronic kidney disease, stage 3a Hyponatremia Nephrolithiasis Vitamin D deficiency Additional Source Comments INFORMATION SOURCE (unrecogn ized section and content) DATE CREATED AUTHOR 05/30/2021 [facility] DATE CREATED AUTHOR AUTHOR'S ORGANIZ ATION 06/10/2022 [facility] DATE CREATED AUTHOR AUTHOR'S ORGANIZ ATION 04/09/2023 [facility] DATE CREATED AUTHOR AUTHOR'S ORGANIZ ATION 05/14/2023 [facility] DATE CREATED AUTHOR AUTHOR'S ORGANIZ ATION 06/30/2023 [facility] DATE CREATED AUTHOR AUTHOR'S ORGANIZ ATION 07/16/2023 [facility] DATE CREATED AUTHOR AUTHOR'S ORGANIZ ATION 10/12/2023 [facility] DATE CREATED AUTHOR AUTHOR'S ORGANIZ ATION 11/01/2023 [facility] REASON FOR VISIT (unrecogniz ed section and content) Reason Comments Med Refill Reason Comments Follow-up Follow up shoulders Reason Comments Follow-up Reason Onset Date Comments Med Refill 04/17/2023 Reason Onset Date Comments Med Refill 05/02/2023 Care Teams (unrecognized sec tion and content) Multiple Tube Winding Machine Operator Relationship Specialty Start Date End Date Carson Sullivan DO [address] [place] [address] PCP - General Family Medicine 02/14/17 Multiple Tube Winding Machine Operator Relationship Specialty Start Date End Date Carson Sullivan DO [address] [place] [address] PCP - General Family Medicine 02/14/17 Multiple Tube Winding Machine Operator Relationship Specialty Start Date End Date Carson Sullivan DO [address] [place] [address] PCP - General Family Medicine 02/14/17 Multiple Tube Winding Machine Operator Relationship Specialty Start Date End Date Carson Sullivan DO [address] [place] [address] PCP - General Family Medicine 02/14/17 Multiple Tube Winding Machine Operator Relationship Specialty Start Date End Date Carson Sullivan DO [address] [place] [address] PCP - General Family Medicine 02/14/17 Multiple Tube Winding Machine Operator Relationship Specialty Start Date End Date Carson Sullivan DO [address] [place] [address] PCP - General Family Medicine 02/14/17 Multiple Tube Winding Machine Operator Relationship Specialty Start Date End Date Carson Sullivan DO [address] [place] [address] PCP - General Family Medicine 02/14/17 Team Status: Active Member Role Status Dates Carson Sullivan DO Primary Care Provider Active Team Status: Active Member Role Status Dates Carson Sullivan DO Primary Care Provider Active Start: October 17, 2023 Bri Davis MD Attending Provider Active Star t: October 17, 2023 Team Status: Inactive Member Role Status Dates Carson Sullivan DO Primary Care Provider Active Start: October 24, 2023 End: October 24, 2023 Bri Davis MD Attending Provider Active Star t: October 24, 2023 End: October 24, 2023 Goals (unrecognized section and content) Goals may be documented in a n alternate section FOR RECORDS PERTAINING TO PATIENTS WHO ARE [...] BE BASED ON THE PRIMARY CLINICAL RECORDS. [employer] [facility]. provides no warranty or guarantee of the accuracy or completeness of information in this document.
--- NOTE | 2023-12-25 12:30 | P.CN_ITS ---
Consult Note: HPI Data of Consult Patient: known to practice within the last 3 years Consult date: 12/25/23 Requesting Physician: Diamond Mooney MD Primary Care Provider: ADALGISA DE JESUS Consult Narrative Reason for consult: low back, bilateral shoulder pain Narrative: 78yof who presents for assessment. continues to have bilateral shoulder pain, low back pain. will be undergoing shoulder replacement in the near future. continues to utilize oxycodone as needed. denies adverse med side effects. cc:: CC: Diamond Mooney MD Review of Systems ROS Status of ROS 10 or more systems reviewed and unremark able except as noted in history and below Meds Home Medications and Allergies Home Medications ?Medication ?Instructions ?Recorded ?Confirmed ?Type amlodipine 10 mg tablet (Norvasc) 10 mg PO DAILY 10/16/23 10/16/23 History ascorbic acid (vitamin C) 500 mg mg PO 10/16/23 History capsule aspirin 81 mg tablet,delayed 81 mg PO DAILY 10/16/23 10/16/23 History release (Garth Low Dose Aspirin) cholecalciferol (vitamin D3) 125 125 mcg PO DAILY 10/16/23 10/16/23 History mcg (5,000 unit) capsule duloxetine 60 mg capsule,delayed 60 mg PO DAILY 10/16/23 10/16/23 History release levothyroxine 112 mcg tablet 112 mcg PO DAILY 10/16/23 10/16/23 History (Euthyrox) lisinopril 40 mg tablet (Zestril) 40 mg PO DAILY 10/16/23 10/16/23 History lorazepam 1 mg tablet 1 mg PO Q12H PRN agitation 10/16/23 10/16/23 History lutein 20 mg capsule 20 mg PO DAILY 10/16/23 10/16/23 History metoprolol succinate 25 mg 25 mg PO DAILY 10/16/23 10/16/23 History tablet,extended release 24 hr (Toprol XL) omeprazole 20 mg capsule,delayed 20 mg PO BID 10/16/23 10/16/23 History release oxycodone 5 mg capsule 5 mg PO .COMPLEX 10/16/23 10/16/23 History oxycodone 5 mg tablet See Rx Instructions .Route 10/16/23 Rx .COMPLEX PRN pain #150 tabs oxycodone 5 mg tablet 5 mg PO .5x/day PRN pain #150 tabs 10/23/23 Rx oxycodone 5 mg tablet 5 mg PO .5x/day PRN pain #150 tabs 11/23/23 Rx oxycodone 5 mg tablet See Rx Instructions .Route 12/25/23 Rx .COMPLEX PRN pain #150 tabs Allergies Allergy/AdvReac Type Severity Reaction Status Date / Time hydrochlorothiazide Allergy Unknown Unknown Verified 10/16/23 14:30 [id number] Reductase Allergy Unknown Unknown Verified 10/16/23 14:30 Inhibitor Sulfa (Sulfonamide Allergy Unknown Unknown Verified 10/16/23 14:30 Antibiotics) Exam Narrative Exam Narrative: Psych-alert and oriented x 3. Attentive and appropriate, constitutionally normal, displays normal mood and affect per situation.? There are no obvious deficits in memory, reasoning, or intellect.? Skin-no obvious rashes, bruising, erythema noted to the patient's area of pain. Extremities- extremities are warm with minimal edema and palpable pulses. Lumbar-no significant tenderness to palpation noted in the lumbar spine and paraspinal musculature.? Pain is elicited with extension, and lateral rotation of the lumbar spine. Range of motion is slightly diminished with these motions due to pain. Coordination remains intact.? Gait remains non-antalgic. Assessment and Plan Assessment and Plan (1) Lumbar postlaminectomy syndrome: (2) Bilateral shoulder pain: Qualifiers: Chronicity: chronic Qualified Code(s): M25.511 - Pain in right shoulder; M25.512 - Pain in left shoulder; G89.29 - Other chronic pain Plan 78yof who presents for assessment. failed conservative measures. will be undergoing shhoulder replacement, so informed that she should let us know what pain medications she is prescribed and not to take our meds and prescribed postop meds concurrently. meds reviewed, no changes. follow up in 3 months or sooner, if needed.
== END 2023-12-25 11:33 | disposition home or self-care (01) ==
PROVIDERS: PCP Family Medicine; Visit Provider Anesthesiology
DX: M96.1 Postlaminectomy syndrome, not elsewhere classified (principal); M25.511 Pain in right shoulder; M25.512 Pain in left shoulder; G89.29 Other chronic pain
CPT/HCPCS: G0463

== ENCOUNTER 2024-03-01 14:19 | Emergency (ER) | payer MEDICARE, SELFPAY ==
[2024-03-01 14:24] VITALS: BP 110/59; PULSE 71; TEMP 36.4; O2SAT 99; BMI 25.6
--- OUTSIDE RECORDS SUMMARY | 2024-03-01 14:27 | XMS_ITS | CCD ---
Author Organization [facility] Care Team Providers Care Dairy Technician Name Role Phone Bri Alonso Unavailable NEAL, DR CARSON Luciano Admitting Unavailable FURLONG, DR CARSON Luciano Attending Unavailable FURLONG, DR CARSON Luciano Consulting Unavailable FURLONG, DR CARSON Luciano Primary Care Unavailable BAKBRI EPPS Admitting Unavailable JOBY POLO Consulting Unavailable FURLONG, DR CARSON Luciano Primary Care Unavailable BAKLESLIES, DEMONDIZ Attending Unavailable BAKLESLIESDEMONDIZ Consulting Unavailable BAKLESLIESDEMONDIZ Consulting Unavailable MISC, DR BANKS Admitting Unavailable FURLONG, DR CARSON Luciano Primary Care Unavailable MISC, DR BANKS Attending Unavailable SABRINA MANUEL Attending Unavailable SABRINA MANUEL Admitting Unavailable SABRINA MANUEL Consulting Unavailable FURLONG, DR CARSON Luciano Primary Care Unavailable SABRINA MANUEL Admitting Unavailable SABRINA MANUEL Attending Unavailable JELANILONG, DR CARSON Luciano Consulting Unavailable FURLONG, DR CARSON Luciano Primary Care Unavailable SABRINA MANUEL Consulting Unavailable FURLONG, DR CARSON Luciano Admitting Unavailable FURLONG, DR CARSON Luciano Attending Unavailable FURLONG, DR CARSON Luciano Consulting Unavailable FURLONG, DR CARSON Luciano Primary Care Unavailable FurloCarson cordero DO Primary Care Provider Unavailable Primary Care Provider UnavailLIAN Almonte Referring Unavailable CARSON SULLIVAN Primary Care Unavailable LIAN DAN Referring Unavailable CARSON SULLIVAN Primary Care Unavailable Aden Baca Admitting Unavailable Aden Baca Attending Unavailable Furlong, Carson Primary Care Unavailable FURLONG, CARSON G Referring Unavailable FURLONG, CARSON G Primary Care Unavailable NI, LIAN L Referring Unavailable FURLONG, CARSON G Primary Care Unavailable EDGAR, YULIA L Attending Unavailable EDGAR, YULIA L Attending Unavailable EDGAR, YULIA L Attending Unavailable EDGAR, YULIA L Attending Unavailable Vinicio CANADA, Diamond Temple Attending Unavailable Vinicio CANADA, Diamond Temple Attending Unavailable FURLONG, CARSON G Attending Unavailable [...] Allergy Type Date of Onset Reaction(s) Facility (20 sources) hydroCHLOROthiazide; Translations: [HYDROCHLOROTHIAZIDE] Drug Allergy Itching [facility] (1 source) Sulfonamides (Antibiotic) Drug allergy (disorder) [facility] (17 sources) HMG-CoA reductase inhibitor; Translations: [[id number] REDUCTASE INHIBITORS] Propensity to adverse reactions to drug pain [facility] (17 sources) nickel; Translations: [NICKEL] Drug Allergy Rash [facility] (20 sources) Sulfonamides (Antibiotic); Translations: [SULFA (SULFONAMIDE ANTIBIOTICS)] Propensity to adverse reactions to drug Photosensitivity [facility] (3 sources) HMG-CoA reductase inhibitor Drug Allergy [facility] (3 sources) hydroCHLOROthiazide Drug Allergy Itching [facility] (3 sources) nickel sulfate Drug Allergy Rash [facility] (1 source) hydroCHLOROthiazide Drug Allergy [facility] (5 sources) DULoxetine; Translations: [DULOXETINE] Drug Allergy [facility] (See Comments[facility] Current Medications Medication Drug Class(es) Dates [...] as needed Orally every 6 hrs Active alendronic acid 70 mg oral tablet (1 source) Bisphosphonate Start: 02-29-2024 take 1 tablet by mouth in the morning alendronate (FOSAMAX) 70 mg tablet Take 1 tablet (70 mg total) by mouth every 7 days. In a.m. with water on empty stomach, nothing else by mouth and remain upright for 30min 12 tablet 3 02/29/2024 Active amLODIPine 10 mg oral tablet (20 sources) Dihydropyridine Calcium Channel Akhil Start: 12-21-2022 End: 01-03-2024 take 1 tablet by mouth once daily amLODIPine (NORVASC) 10 mg tablet TAKE 1 TABLET BY MOUTH DAILY 90 tablet 1 01/03/2024 Active ascorbic acid 1000 mg extended release oral tablet (20 sources) Vitamin C Start: 02-07-2018 take 1 tablet by mouth once daily Ascorbic Acid (Vitamin C) (Vitamin C) 1,000 mg Tablet Extended Release Active 1000 MG PO Daily February 07, 2018 1:00am ascorbic acid, v itamin C, (VITAMIN C) 1000 mg tablet as directed Orally Active Bioflavonoid Pro ducts (Vitamin C) chewable tablet as directed Orally 0 Active Vitamin C - as d irected Orally Active aspirin 81 mg delayed release oral tablet (20 sources) Platelet Aggregation Inhibitor, Nonsteroidal Anti-inflammatory Drug Start: 02-07-2018 Aspirin (Lorie Lo w Dose Aspirin) 81 mg Tablet,Delayed Release (Dr/Ec) Active 81 MG PO Daily February 07, 2018 1:00am take 1 tablet by nabeel every twenty-four hours Aspirin 81 MG 1 tablet Orally Once a day for 30 day(s) Active B Xryxocy-Xvavid-RT (Super B-Complex) tablet (3 sources) B Complex-Biotin [...] 10/20/2022 Active take 1 capsule by mo [facility] three times daily as needed Benzonatate 200 MG 1 capsule Orally Thre e times a day as needed for 30 days Not-Taking Calcium 600 + D 600-200 MG-UNIT (4 sources) take 1 tablet by nabeel once daily Calcium 600 + D 600-200 [...] TAB PO Daily February 07, 2018 1:00am pfczxca-tzjnfanmc-lqap 333-133-5 MG per tablet (3 sources) calcium-magnesiu [...] 07, 2018 1:00am take 1 capsule by [facility] every twenty-four hours Vitamin D3 50 MCG [...] propionate 0.05 mg/actuat metered dose nasal spray (17 sources) Corticosteroid Start: 023 take 1 spray(s) [...] fsh/flx/prim/cur/bor/om3,6,9 5 (OMEGA 3-6-9 FATTY ACIDS ORAL) (14 sources) fsh/flx/prim/cur /bor/om3,6,9 5 (OMEGA 3-6-9 FATTY ACIDS ORAL) as directed Orally Active fsh/flx/prim/cur /bor/om3,6,9 5 (OMEGA 3-6-9 FATTY ACIDS ORAL) as directed Orally 0 Active Iron (1 source) take 1 tablet by mouth once daily Iron 28 MG 1 tablet Orally Once a day for 30 day(s) Active lactobacillus acidophilus [id number] unt oral capsule (14 sources) Lactobacillus acidophilus (PROBIOTIC) 10 billion cell capsule 1 capsule See Admin Instructions. Active levothyroxine sodium 0.112 mg oral tablet (20 sources) l-Thyroxine Start: 02-07-2018 End: 01-31-2024 take 1 tablet by mouth in the morning levothyroxine (SYNTHROID, LEVOTHROID) 112 MCG tablet Take 1 tablet (112 mcg total) by mouth in the morning. 90 tablet 1 01/31/2024 Active take 1 tablet by nabeel th once daily in the morning Levothyroxine Sodium 112 MCG 1 tablet on an empty stomach in the morning Orally Once a day for 30 day(s) Active lisinopril 40 mg oral tablet (20 sources) Angiotensin Converting Enzyme Inhibitor Start: 09-29-2022 take 1 tablet by mouth once daily lisinopriL (PRINIVIL,ZESTRIL) 40 mg tablet take 1 tablet by mouth once daily 90 tablet 3 09/16/2023 Active loratadine 10 mg oral tablet (20 sources) Start: 02-07-2018 End: 03-30-2023 take 10 mg by mouth once daily Loratadine Active 10 MG PO Daily February 07, 2018 1:00am take 1 tablet by mouth in the mo rning loratadine 10 mg capsule Take 1 tablet by mouth in the morning. Active LORazepam 1 mg oral tablet (7 sources) Benzodiazepine Start: 10-11-2023 take 1 tablet by mouth once daily as needed for anxiety LORazepam (ATIVAN) 1 mg tablet Indications: Anxiety Take 1 tablet (1 mg total) by mouth daily as needed for anxiety. 30 tablet 10/11/2023 Active Start: 02-07-2018 End: 2023 take 1 mg by mouth at bedtime Lorazepam Discontinued 1 MG PO Bedtime February 07, 2018 1:00am 2023 10:11am lutein 10 mg oral tablet (20 sources) Start: 10-24-2023 take 10 mg by mouth once daily Lutein Active 10 MG PO Daily October 24, 2023 12:00am give with meal/snack Start: 02-07-2018 End: 10-24-2023 take 6 mg by mouth once daily Lutein Discontinued 6 MG PO Daily February 07, 2018 1:00am October 24, 2023 10:56am metoprolol tartrate 25 mg oral tablet (20 sources) beta-Adrenergic Akhil Start: 10-24-2023 take 25 mg by mouth once daily Metoprolol Succinate Active 25 MG PO Daily October 24, 2023 12:00am Start: 10-07-2023 take 1 tablet by nabeel th once daily in the morning metoprolol succinate XL (TOPROL XL) 25 mg 24 hr tablet Indications: Essential hypertension take 1 tablet by mouth every morning 90 tablet 1 10/07/2023 Active Start: 10-28-2022 End: 04-17-2023 take 1 tablet [...] mouth in the morning. 0 05/02/2022 Active mt-rvu-ibino-calcium carb-K1 400 mcg-500 mg calcium-20 mcg tablet (14 sources) Start: 05-02-2022 take 1 tablet by mouth once in the morning vy-noo-idmsi-calcium carb-K1 400 mcg-500 mg calcium-20 mcg tablet Take 1 tablet by mouth in the morning. 90 tablet 05/02/2022 Active Start: 05-02-2022 take 1 tablet by nabeel th once in the morning pu-rhf-ctwke-calcium carb-K1 400 mcg-500 mg calcium-20 mcg tablet Take 1 tablet by mouth in the morning. 90 tablet 0 05/02/2022 Active naloxone hydrochloride 40 mg/ml nasal spray (10 sources) Opioid Antagonist naloxone (NARC AN) 4 mg/actuation spray,non-aerosol nasal spray Administer 1 spray (4 mg total) into each nostril as needed. 1 spray Q2-3 minutes as needed 0 Active naloxone (NARCAN) 4 mg/actuation spray,non-aerosol nasal spray (4 sources) naloxone (NARCAN ) 4 mg/actuation spray,non-aerosol nasal spray Administer 1 spray (4 mg total) into each nostril as needed. 1 spray Q2-3 minutes as needed Active 24 hr nicotine 0.875 mg/hr transdermal system (8 sources) Cholinergic Nicotinic Agonist Start: apply 1 dose transdermal route once daily nicotine (NICODERM CQ) 21 mg/[address] 1 patch on the skin daily. 30 patch 1 04/28/2023 Active qd1-ode-xzm-fish-kri l-lut-zeax (MEGARED ADV TOTAL BODY REFRESH) [phone] mg capsule (4 sources) tz9-uob-kht-fish -kril-l ut-zeax (MEGARED ADV TOTAL BODY REFRESH) [phone] mg capsule Take by mouth. Active Trevor 3 1000 MG (4 sources) take 1 capsule by mouth once daily Trevor 3 1000 MG 1 capsule Orally Once a day for 30 day(s) Active omega-3 acid ethyl esters (group home) 1000 mg oral capsule (1 source) Start: take 1000 mg by mouth once daily Trevor-3 Acid Ethyl Esters Active 1000 MG PO Daily February 07, 2018 1:00am omeprazole 20 mg delayed release oral capsule (20 sources) Proton Pump Inhibitor Start: omeprazole (PriLOSEC) 20 mg capsule TAKE 1 CAPSULE TWICE DAILY 180 capsule 3 08/21/2023 Active Start: 02-07-2018 End: 03-20-2023 omeprazole (PriLOSEC) 20 mg capsule TAKE 1 CAPSULE TWICE DAILY 180 capsule 1 03/20/2023 Active take 1 tablet by nabeel th every twelve hours PriLOSEC OTC 20 MG 1 tablet Orally TWICE A DAY for 30 days Active take 1 tablet by nabeel th twice daily PriLOSEC OTC 20 MG 1 tablet Orally TWICE A DAY for 30 days Active take 1 tablet by nabeel th once daily PriLOSEC OTC 20 MG 1 tablet Orally Once a day for 30 day(s) Active oxyCODONE hydrochloride 5 mg oral tablet (7 sources) Opioid Agonist Start: 12-26-2023 take 1 tablet by mouth five times daily as needed for pain oxyCODONE (ROXICODONE) 5 mg immediate release tablet TAKE 1 TABLET BY MOUTH FIVE TIMES DAILY NEEDED FOR PAIN 12/26/2023 Active Start: 02-15-2018 End: 2023 take 1 tablet [...] Orally every 6 hrs 15 mg Not-Taking polyethylene glycol [phone] mg powder for oral solution (15 sources) Osmotic Laxative Start: 02-07-2018 Polyethylene Glycol [...] then take 1 tab for 3 days pseudoephedrine hydrochloride 30 mg oral tablet (4 sources) alpha-Adrenergic Agonist take 2 tablets by mouth every six hours as needed pseudoephedrine (SUDAFED) 30 mg tablet 2 tablets as needed Orally every 6 hrs Active rosuvastatin calcium 5 mg oral tablet (4 sources) HMG-CoA Reductase Inhibitor Start: 2023 take 1 tablet by mouth in the morning rosuvastatin (CRESTOR) 5 mg tablet Take 1 tablet (5 mg total) by mouth in the morning. 30 tablet 5 12/28/2023 Active saccharomyces boulardii 250 mg oral capsule (5 sources) Start: 2023 take 250 mg by mouth once daily Saccharomyces Boulardii Active 250 MG PO Daily October 24, 2023 12:00am take 1 capsule by [facility] every twenty-four hours Probiotic 250 MG 1 [...] Super B-Complex - as directed Orally Not-Taking traZODone hydrochloride 100 mg oral tablet (5 sources) Serotonin Reuptake Inhibitor Start: 12-28-2023 End: 01-01-2024 take 1 tablet by mouth once daily as needed traZODone (DESYREL) 100 mg tablet take 1 tablet by mouth nightly as needed 30 tablet 1 01/01/2024 Active ubidecarenone 50 mg oral capsule (1 source) Start: 02-07-2018 Coenzyme Q10 ( Co Q-10) 50 mg Capsule Active 50 MG PO Daily February 07, 2018 1:00am Vitamin B Complex (1 source) Start: 10-24-2023 take 1 tablet by mouth once daily Vitamin B Complex Active 1 TAB PO Daily October 24, 2023 12:00am vitamin e 180 mg oral capsule (18 sources) Start: 02-07-2018 take 400 [IU] by mouth once daily Vitamin E Active 400 UNIT PO Daily February 07, 2018 1:00am vitamin E 400 un its capsule Active alpha tocopherol (Vitamin E) 400 units capsule [...] Discontinued 10 MG PO Three times daily February 15, 2018 1:00am 2023 10:11am docusate [...] Daily February 07, 2018 1:00am 2023 10:11am morphine [...] e-prescription and drug interaction check* Feb, Not-Taking Hmtfmjhk-Hok-Fpk n-Fa-Vit K-Lut (Centrum Silver Women) 8 mg iron-400 mcg-300 mcg Tablet (1 source) Start: 02-07-2018 End: 10-24-2023 take 1 tablet by mouth once daily Udgkxwjq-Ocy-Shgx-Fa-V it K-Lut (Centrum Silver Women) 8 mg [...] 2023 10:57am take 1 tablet by nabeel th twice daily at mealtime niacin 1,000 mg tablet extended release 1 tablet with food Orally BID 0 Active potassium 99 mg extended release oral tablet [...] Date Documented Da te Episodic/Chronic Anxiety disorders (15 sources) Anxiety; Translations: [Anxiety disorder, unspecified] Onset: 11-16-2021 11-16-2021 Chronic Asthma (14 sources) Reactive airway disease; Translations: [Unspecified asthma, [...] unspecified] 10-21-2023 Episodic Disorders of lipid metabolism (19 sources) Hyperlipidemia, unspecified; Translations: [Pure hypercholesterolemia , unspecified] Onset: 10-11-2021 Chronic Esophageal disorders (15 sources) Gastro-esophageal reflux disease without esophagitis; Translations: [Gastroesophageal reflux disease] Onset: 10-11-2021 11-16-2021 Chronic Essential hypertension (17 sources) Essential (primary) hypertension; Translations: [Essential hypertension] Onset: 05-03-2021 11-16-2021 Chronic Headache; including migraine (14 sources) Migraine; Translations: [Migraine, unspecified, not intractable, without status migrainosus] Onset: 11-16-2021 11-16-2021 Chronic Hypertension with complications and secondary hypertension (20 sources) Hypertensive renal disease; Translations: [Hypertensive chronic kidney disease with stage 1 through stage 4 chronic kidney disease, or unspecified chronic kidney disease] Onset: 03-31-2022 Resolved: 10-19-2022 Chronic Immunizations and screening for infectious disease (1 source) Encounter for immunization; Translations: [Encounter for immunization] Onset: 12-28-2023 Episodic Nutritional deficiencies (20 sources) Vitamin D deficiency; Translations: [Vitamin D deficiency, unspecified] Onset: 11-16-2021 Chronic Osteoarthritis (9 sources) Arthritis of shoulder region joint; Translations: [Primary osteoarthritis, right shoulder] Onset: 09-26-2023 2023 Chronic Other diseases [...] keratosis] 04-07-2023 Episodic Other upper respiratory disease (14 sources) Allergic rhinitis; Translations: [Allergic rhinitis, unspecified] Onset: 09-21-2020 11-16-2021 Chronic Peripheral and visceral atherosclerosis (16 sources) Peripheral vascular disease; Translations: [Peripheral vascular disease, unspecified] Onset: 02-01-2021 11-16-2021 Chronic Residual codes; unclassified (1 source) Asymptomatic menopausal state; Translations: [Asymptomatic menopausal state] Onset: 02-22-2024 Episodic Spondylosis; intervertebral disc disorders; other back problems (20 sources) Degeneration of intervertebral disc; Translations: [Degeneration of intervertebral disc] Onset: 11-16-2021 11-16-2021 Chronic Substance-related disorders (18 sources) Nicotine dependence, cigarettes, uncomplicated; Translations: [Tobacco dependence syndrome] Onset: 10-11-2021 11-16-2021 Chronic Thyroid disorders (18 sources) Hypothyroidism, unspecified; Translations: [Hypothyroidism] Onset: 11-16-2021 11-16-2021 Chronic Unclassified (1 source) Primary osteoarthritis, left shoulder; Translations: [Primary osteoarthritis, left shoulder] Onset: 2023 Unclassified (1 source) controlled sub Onset: 09-26-2023 Past or Other Problems Problem Classification Problem Date Documented Da te Episodic/Chronic Abdominal hernia (14 sources) Hiatal hernia; Translations: [Diaphragmatic hernia without obstruction or gangrene] Onset: 11-16-2021 11-16-2021 Episodic Complications of surgical procedures or medical care (14 sources) Complication of surgical procedure; Translations: [Unspecified complication of procedure, initial encounter] Onset: 10-26-2018 11-16-2021 Episodic Diabetes mellitus without complication (14 sources) Hyperglycemia; Translations: [Hyperglycemia, unspecified] Onset: 06-20-2016 11-16-2021 Episodic Fluid and electrolyte disorders (16 sources) Hypokalemia; Translations: [Hypokalemia] Onset: 11-16-2021 11-16-2021 Episodic Mood disorders (14 sources) Mood disorders Onset: 02-09-2023 Resolved: 12-28-2023 02-09-2023 Other bone disease and musculoskeletal deformities (14 sources) Osteopenia; Translations: [Other specified disorders of bone density and structure, unspecified site] Onset: 11-16-2021 11-16-2021 Episodic Other circulatory disease (14 sources) Femoral bruit; Translations: [Other specified symptoms and signs involving the circulatory and respiratory systems] Onset: 11-16-2021 11-16-2021 Episodic Other connective tissue disease (1 source) Myalgia, unspecified site; Translations: [MYALGIA UNSPECIFIED SITE] Onset: 11-19-2021 Episodic Other connective tissue disease (14 sources) Acquired trigger finger; Translations: [Trigger finger, unspecified finger] Onset: 11-16-2021 11-16-2021 Episodic Other connective tissue disease (14 sources) Fibromyalgia; Translations: [Fibromyalgia] Onset: 11-16-2021 11-16-2021 Episodic Other connective tissue disease (1 source) Fibromyalgia; Translations: [Fibromyalgia] Onset: 11-16-2021 Episodic Other non-epithelial cancer of skin (14 sources) Basal cell carcinoma of skin; Translations: [...] Episodic Other nutritional; endocrine; and metabolic disorders (14 sources) Overweight; Translations: [Overweight] Onset: 06-15-2016 Resolved: 07-18-2022 07-18-2022 Episodic Residual codes; unclassified (1 source) Acquired absence of both cervix and uterus; Translations: [ACQUIRED ABSENCE BOTH CERVIX AND UTERUS] Onset: 10-11-2021 Episodic Residual codes; unclassified (4 sources) Disturbance in sleep behavior; Translations: [Sleep disorder, unspecified] Onset: 06-28-2023 06-28-2023 Episodic Residual codes; unclassified (1 source) Sleep disorder, unspecified; Translations: [Sleep disorder, unspecified] Onset: 06-28-2023 Episodic Spondylosis; intervertebral disc disorders; other back problems (16 sources) Spinal stenosis of lumbar region; Translations: [Spinal stenosis, lumbar region without neurogenic claudication] Onset: 09-14-2017 11-16-2021 Episodic Results Test Name Value Interpretation Reference Range Facility Erythrocyte distribution wid th Auto (RBC) [Ratio]on 10-17-2023 Erythrocyte distribution wid th (RBC) [Ratio] 13.5 % 11.0-15.0 [facility] Estimated glomerular filtrat ion rate (GFR) non- Americanon 10-17-2023 GFR/1.73 sq M.predicted rosa m g non-blacks MDRD (S/P/Bld) [Vol rate/Area] 43 mL/min/{1.73_m2} Low >=60 [facility] Globulin Calc (S) [Mass/Vol] on 10-17-2023 Globulin (S) [Mass/Vol] 3.4 g/dL F [facility] Hematocrit Auto (Bld) [Volum e fraction]on 10-17-2023 Hematocrit (Bld) [Volume fraction] 38.7 % 36.0-48.0 [facility] Hemoglobin [Mass/volume] in Bloodon 10-17-2023 Hemoglobin (Bld) [Mass/Vol] 12.8 g/dL 12.0-16. 0 [facility] Laboratory - Chemistry and C hemistry - challengeon 10-17-2023 Albumin [Mass/Vol] 4.0 g/dL 3.4-5.0 [facility] ALP [Catalytic activity/Vol] 94 U/L 46-116 [facility] ALT [Catalytic activity/Vol] 23 U/L 14-59 [facility] AST [Catalytic activity/Vol] 10 U/L Low 15-37 [facility] Bilirubin [Mass/Vol] 0.4 mg/dL 0.2-1.0 [facility] Calcium [Mass/Vol] 9.3 mg/dL 8.5-10.1 [facility] Chloride [Moles/Vol] 96 mmol/L Low 98-107 [facility] CO2 [Moles/Vol] 26.8 mmol/L 21.0-32.0 [facility] Creatinine [Mass/Vol] 1.21 mg/dL High 0.55-1.02 [facility] GFR/1.73 sq M.predicted MDRD (S/P/Bld) [Vol rate/Area] 52 mL/min/{1.73_m2} Low >=60 [facility] Glucose [Mass/Vol] 109 mg/dL High 74-106 [facility] Magnesium [Mass/Vol] 2.0 mg/dL 1.8-2.4 [facility] Potassium [Moles/Vol] 3.7 mmol/L 3.5-5.1 [facility] Protein [Mass/Vol] 7.4 g/dL 6.4-8.2 [facility] Sodium [Moles/Vol] 130 mmol/L Low 136-145 [facility] Urea nitrogen [Mass/Vol] 20.0 mg/dL High 7.0-18.0 [facility] Urea nitrogen/Creatinine [Ma ss ratio] 16.5 mg/mg [facility] Bilirubin Ql (U) Negative NEGATIVE [facility] Glucose (U) [Mass/Vol] Negative NEGATIVE [facility] Ketones Ql (U) TRACE mg/dL Abnormal NEGATIVE [facility] pH (U) 6.0 [pH] 5.0-9.0 [facility] Specific gravity (U) [Rel density] 1.015 1.005-1.02 5 [facility] Urobilinogen Qn (U) 0.2 {Drew'U}/dL 0.2-1.0 [facility] - Specimen inform ationon 10-17-2023 Appearance (U) SL CLOUDY CLEAR [facility] Color (U) YELLOW YELLOW [facility] - Urinalysison Leukocyte esterase Test stri p Ql (U) Negative NEGATIVE [facility] Nitrite Ql (U) Negative NEGATIVE [facility] Protein (U) [Mass/Vol] 23.3 mg/dL High <=11.9 [facility] Protein Ql (U) Negative NEG/TRACE [facility] Leukocytes [#/volume] correc di for nucleated erythrocytes in Blood by Automated counon 10-17-2023 WBC corrected for nucl RBC A uto (Bld) [#/Vol] 6.7 10 3/uL 4.0-11.0 [facility] MCH Auto (RBC) [Entitic mass ]on 10-17-2023 MCH (RBC) [Entitic mass] 32.7 pg 26.7-34.0 [facility] MCHC Auto (RBC) [Mass/Vol]on 10-17-2023 MCHC (RBC) [Mass/Vol] 33.1 g/dL 29.9-35.2 [facility] MCV Auto (RBC) [Entitic vol] on 10-17-2023 MCV (RBC) [Entitic vol] 98.7 fL 81.0-99.0 F [facility] No Panel Informationon 10-16 25-Hydroxy Vitamin D Total 47.1 ng/mL [facility] Comment on above: <20 ng/mL Vit D defi cient20-<30 ng/mL Vit D aleammjhpftx38-111 ng/mL Vit D sufficient>100 ng/mL Potential Toxicity Parathyroid Hormone (Intact) 24 pg/mL 15-65 [facility] Comment on above: Performed at: [facility] [employer] [address] [id number] Director: Billy Patel PhD, Phone: [phone] Urine Occult Blood Negative NEGATIVE [facility] Urine Random Creatinine 116.48 mg/dL 20.0 0-300. 00 [facility] Platelet mean volume Auto (B ld) [Entitic vol]on 10-17-2023 Platelet mean volume (Bld) [Entitic vol] 9.2 fL Low 9.5-13.5 [facility] Platelets Auto (Bld) [#/Vol] on 10-17-2023 Platelets (Bld) [#/Vol] 364 10 3/uL 150-450 [facility] RBC Auto (Bld) [#/Vol]on RBC (Bld) [#/Vol] 3.92 10 6/uL Low 4.20-5.40 [facility] Serum or plasma albumin/glob ulin mass ratioon 10-17-2023 Albumin/Globulin [Mass ratio] 1.2 {ratio} [facility] Serum or plasma anion gap de terminationon 10-17-2023 Anion gap [Moles/Vol] 10.9 mmol/L [facility] Urine protein/creatinine rat ioon 10-17-2023 Protein/Creatinine (U) [Ratio] 0.20 [facility] BASIC METABOLIC PANLon 06-27 Anion gap [Moles/Vol] 13 mmol/L Normal 5-15 [facility] Comment on above: Performed By: #### B ROBERTO, THYR #### [facility] ([id number]) [address], [address] [place] [address] Calcium [Mass/Vol] 9.9 mg/dL Normal 8.5-10.5 [facility] Comment on above: Performed By: #### B ROBERTO, THYR #### [facility] ([id number]) [address], [address] [place] [address] Chloride [Moles/Vol] 100 mmol/L Normal 98-109 [facility] Comment on above: Performed By: #### B ROBERTO, THYR #### [facility] ([id number]) [address], [address] [place] [address] CO2 [Moles/Vol] 23 mmol/L Normal 22-32 [facility] Comment on above: Performed By: #### Becki MEJIA, THYR #### [facility] ([id number]) [address], [address] [place] [address] Creatinine [Mass/Vol] 1.20 mg/dL High 0.40-1.00 [facility] Comment on above: Result Comment: METH OD TRACEABLE TO IDMS STANDARD Performed By: #### B ROBERTO, THYR #### [facility] ([id number]) [address], [address] [place] [address] GFR/1.73 sq M.predicted rosa m g non-blacks MDRD (S/P/Bld) [Vol rate/Area] 47 mL/min/{1.73_m2} Low >59 [facility] Comment on above: Result Comment: Reported eGFR is based on the CKD-EPI 2020 equation that does not use a race coefficient. Performed By: #### B ROBERTO, THYR #### [facility] ([id number]) [address], [address] [place] [address] Glucose [Mass/Vol] 86 mg/dL Normal 65-99 [facility] Comment on above: Performed By: #### B ROBERTO, THYR #### [facility] ([id number]) [address], [address] [place] [address] Potassium [Moles/Vol] 4.3 mmol/L Normal 3.5-5.0 [facility] Comment on above: Performed By: #### B ROBERTO, THYR #### [facility] ([id number]) [address], [address] [place] [address] Sodium [Moles/Vol] 136 mmol/L Normal 134-146 [facility] Comment on above: Performed By: #### B ROBERTO, THYR #### [facility] ([id number]) [address], [address] [place] [address] Urea nitrogen [Mass/Vol] 26 mg/dL Normal 5-27 [facility] Comment on above: Performed By: #### Becki MEJIA, THYR #### [facility] ([id number]) [address], [address] [place] [address] THYROID PROFILEon 06-28-2023 Free T4 [Mass/Vol] 1.14 ng/dL Normal 0.61-1.60 [facility] Comment on above: Performed By: #### Becki MEJIA, THYR #### [facility] ([id number]) [address] [place] [address] TSH 0.81 uIU/mL Normal 0.49-4.67 [facility] Comment on above: Performed By: #### B ROBERTO, THYR #### [facility] ([id number]) [address], [address] [place] [address] XR shoulder LT min 2V*on XR shoulder LT min 2V* [facility] [address] [place] [address] [place] [address] XRay Report Signed Patient: Mike Tellez MR#: [id number] : 1945 Acct:[id number] Age/Sex: 78 / F ADM Date: 05/11/23 Loc: [facility] Room: Type: [facility] Attending Dr: Aden Baca DO [...] Justin Lucas M.D.05/11/2023 2:24 PM Dictation Location: [place] [address] Transcribed By: [facility] 05/11/23 142 Dictated By: Justin Lucas DO 05/11/23 142 Signed By: 05/11/23 1424 [facility] No Panel Informationon 04-07 [facility] DRUG SCREEN, URINEon 024 AMPHETAMINE/METHAMP Negative Normal NEG [facility] Comment on above: Result Comment: AMPH /METH screening cut off = 1000 ng/mL Performed By: #### D HOLT #### [facility] ([id number]) [address], [address] [place] [address] BARBITURATES Negative Normal NEG [facility] Comment on above: Result Comment: Rhonda iturates screening cut off value = 200 ng/mL Performed By: #### D HOLT #### [facility] ([id number]) [address] [facility] [facility] [place] [address] BENZODIAZEPINES Negative Normal NEG [facility] Comment on above: Result Comment: Guillermo odiazepines screening cut off value = 200 ng/mL Performed By: #### D HOLT #### [facility] ([id number]) [address], [address] [place] [address] CANNABINOIDS Negative Normal NEG [facility] Comment on above: Result Comment: Shanita abinoids/THC screening cut off value = 50 ng/mL Performed By: #### D HOLT #### [facility] ([id number]) [address] [place] [address] COCAINE METABOLITE Negative Normal NEG [facility] Comment on above: Result Comment: Coca ine screening cut off value = 300 ng/mL Performed By: #### D HOLT #### [facility] ([id number]) [address], [address] [place] [address] ECSTASY Negative Normal NEG [facility] Comment on above: Result Comment: Ecst asy screening cut off value = 500 ng/mL This report is intended for use in clinical monitoring or management of patients. Performed By: #### D HOLT #### [facility] ([id number]) [address], [address] [place] [address] METHADONE Negative Normal NEG [facility] Comment on above: Result Comment: Meth adone screening cut off value = 300 ng/mL. Performed By: #### D HOLT #### [facility] ([id number]) [address], [address] [place] [address] OPIATES Positive Abnormal NEG [facility] Comment on above: Result Comment: Conf irmation available upon request. Opiates screening cut off value = 300 ng/mL NOTE: This test is used for the detection of codeine, hydrocodone (>1000 ng/mL), morphine and hydromorphone (>900 ng/mL) in urine. Performed By: #### D HOLT #### [facility] ([id number]) [address], [address] [place] [address] OXYCODONE Negative Normal NEG [facility] Comment on above: Result Comment: Oxyc odone screening cut off value = 300 ng/mL NOTE: This test is used for the detection of oxycodone and oxymorphone in urine. Performed By: #### D HOLT #### [facility] ([id number]) [address], [address] [place] [address] PHENCYCLIDINE Negative Normal NEG [facility] Comment on above: Result Comment: Phen cyclidine screening cut off value = 25 ng/mL Performed By: #### D HOLT #### [facility] ([id number]) [address], [address] [place] [address] Drug Screen, Urineon 024 Amphetamines Screen method >1000 ng/mL Ql (U) Negative Negative^[facility] Comment on above: AMPH/METH screening cut off = 1000 ng/mL Barbiturates Screen Ql (U) Negative N egative^N [facility] Comment on above: Barbiturates screeni ng cut off value = 200 ng/mL Benzodiazepines Ql (U) Negative Negat iggy^N [facility] Comment on above: Benzodiazepines scre ening cut off value = 200 ng/mL Cocaine Ql (U) Negative Negative^N [facility] Comment on above: Cocaine screening cu t off value = 300 ng/mL Interpretation and review of laboratory results Abnormal [facility] Methadone Screen Ql (U) Negative Nega tive^N [facility] Comment on above: Methadone screening cut off value = 300 ng/mL. Methylenedioxymethamphetamin e Screen Ql (U) Negative Negative^[facility] Comment on above: Ecstasy screening cu t off value = 500 ng/mL This report is intended for use in clinical monitoring or management of patients. Opiates Screen Ql (U) Positive Abnormal Negati ve^[facility] Comment on above: Confirmation availab le upon request. Opiates screening cut off value = 300 ng/mL NOTE: This test is used for the detection of codeine, hydrocodone (>1000 ng/mL), morphine and hydromorphone (>900 ng/mL) in urine. oxyCODONE Ql (U) Negative Negative^N egative [facility] Comment on above: Oxycodone screening cut off value = 300 ng/mL NOTE: This test is used for the detection of oxycodone and oxymorphone in urine. Phencyclidine Screen method >25 ng/mL Ql (U) Negative Negative^N ative [facility] Comment on above: Phencyclidine screen ing cut off value = 25 ng/mL Tetrahydrocannabinol Screen method >50 ng/mL Ql (U) Negative Negative^N egative [facility] Comment on above: Cannabinoids/THC scr eening cut off value = 50 ng/mL [facility] PTH INTACTon 06-02-2022 PTH, Intact 14 pg/mL Critically low 15-65 [facility] Comment on above: Performed By: #### P THINT ####[facility] [address] [place], [place] [address]Dr. Ashok Bailey HEMOGRAM AND PLATELon 2022 Hematocrit (Bld) [Volume fraction] 32.0 % Critically low 36.0-48.0 [facility] Comment on above: Performed By: #### H H ####[facility] [address] [place], [place] [address]Dr. Ashok Bailey Hemoglobin (Bld) [Mass/Vol] 10.6 g/dL Critically low 12.0 -16.0 [facility] Comment on above: Performed By: #### H H ####[facility] [address] [place], [place] [address]Dr. Ashok Bailey MCH (RBC) [Entitic mass] 31.4 pg Normal 26.7-34.0 [facility] Comment on above: Performed By: #### H H ####[facility] [address] [place], [place] [address]Dr. Ashok Bailey MCHC (RBC) [Mass/Vol] 33.1 g/dL Normal 29.9-35.2 [facility] Comment on above: Performed By: #### H H ####[facility] [address] [place], [place] [address]Dr. Ashok Bailey MCV (RBC) [Entitic vol] 94.7 fL Normal 81.0-99.0 [facility] Comment on above: Performed By: #### H H ####[facility] [address] [place] [address]Dr. Ashok Bailey PLT 345 103/ul Normal 150-450 [facility] Comment on above: Performed By: #### H H ####[facility] [address] [place] [address]Dr. Ashok Bailey RBC 3.38 106/ul Critically low 4.20-5.40 [facility] Comment on above: Performed By: #### H H ####[facility] [address] [place] [address]Dr. Ashok Bailey WBC 8.4 103/ul Normal 4.0-11.0 [facility] Comment on above: Performed By: #### H H ####[facility] [address] [place] [address]Dr. Ashok Bailey MAGNESIUMon 06-01-2022 Magnesium [Mass/Vol] 1.8 mg/dL Normal 1.8-2.4 [facility] Comment on above: Performed By: #### C MP, URIC, MG, PHOS ####[facility] [address] [place] [address]Dr. Ashok Bailey PHOSPHORUSon 06-01-2022 Phosphate [Mass/Vol] 4.0 mg/dL Normal 2.6-4.7 [facility] Comment on above: Performed By: #### C MP, URIC, MG, PHOS ####[facility] [address] [place] [address]Dr. Ashok Bailey PROF 14(COMP METB)on 023 Albumin [Mass/Vol] 3.8 g/dL Normal 3.4-5.0 [facility] Comment on above: Performed By: #### C MP, URIC, MG, PHOS ####[facility] [address] [place] [address]Dr. Ashok Bailey Albumin/Globulin [Mass ratio] 1.1 {ratio} Normal [facility] Comment on above: Performed By: #### C MP, URIC, MG, PHOS ####[facility] [address] [place] [address]Dr. Ashok Bailey ALP [Catalytic activity/Vol] 96 U/L Normal 46-116 [facility] Comment on above: Performed By: #### C MP, URIC, MG, PHOS ####[facility] [address] [place] [address]Dr. Ashok Bailey ALT [Catalytic activity/Vol] 17 U/L Normal 14-59 [facility] Comment on above: Performed By: #### C MP, URIC, MG, PHOS ####[facility] Rd[address] [place], [place] [address]Dr. Ashok Bailey Anion gap [Moles/Vol] 15.4 mmol/L Normal [facility] Comment on above: Performed By: #### C MP, URIC, MG, PHOS ####[facility] [address] [place], [place] [address]Dr. Ashok Bailey AST [Catalytic activity/Vol] 15 U/L Normal 15-37 [facility] Comment on above: Performed By: #### C MP, URIC, MG, PHOS ####[facility] [address] [place], [place] [address]Dr. Ashok Bailey Bilirubin [Mass/Vol] 0.3 mg/dL Normal 0.2-1.0 [facility] Comment on above: Performed By: #### C MP, URIC, MG, PHOS ####[facility] [address] [place], [place] [address]Dr. Ashok Bailey Calcium [Mass/Vol] 9.1 mg/dL Normal 8.5-10.1 [facility] Comment on above: Performed By: #### C MP, URIC, MG, PHOS ####[facility] [address] [place] [address]Dr. Ashok Bailey Chloride [Moles/Vol] 103 mmol/L Normal 98-107 [facility] Comment on above: Performed By: #### C MP, URIC, MG, PHOS ####[facility] [address] [place] [address]Dr. Ashok Bailey CO2 [Moles/Vol] 24.9 mmol/L Normal 21.0-32.0 [facility] Comment on above: Performed By: #### C MP, URIC, MG, PHOS ####[facility] [address] [place] [address]Dr. Ashok Bailey Creatinine [Mass/Vol] 1.35 mg/dL Critically high 0.55-1.02 [facility] Comment on above: Performed By: #### C MP, URIC, MG, PHOS ####[facility] [address] [place], [place] [address]Dr. Ashok Bailey EGFR-AF SENEGALESE 46 mL/min/1.73m2 Critically low >=60 [facility] Comment on above: Performed By: #### C MP, URIC, MG, PHOS ####[facility] [address] [place], [place] [address]Dr. Ashok Bailey EGFR-NON AF SENEGALESE 38 mL/min/1.73m2 Critically low >=60 [facility] Comment on above: Performed By: #### C MP, URIC, MG, PHOS ####[facility] [address] [place], [place] [address]Dr. Ashok Bailey Globulin (S) [Mass/Vol] 3.4 g/dL Normal [facility] Comment on above: Performed By: #### C MP, URIC, MG, PHOS ####[facility] [address] [place] [address]Dr. Ashok Bailey Glucose [Mass/Vol] 86 mg/dL Normal 74-106 [facility] Comment on above: Performed By: #### C MP, URIC, MG, PHOS ####[facility] [address] [place], [place] [address]Dr. Ashok Bailey Potassium [Moles/Vol] 4.3 mmol/L Normal 3.5-5.1 [facility] Comment on above: Performed By: #### C MP, URIC, MG, PHOS ####[facility] [address] [place] [address]Dr. Ashok Bailey Protein [Mass/Vol] 7.2 g/dL Normal 6.4-8.2 [facility] Comment on above: Performed By: #### C MP, URIC, MG, PHOS ####[facility] [address] [place] [address]Dr. Ashok Bailey Sodium [Moles/Vol] 139 mmol/L Normal 136-145 [facility] Comment on above: Performed By: #### C MP, URIC, MG, PHOS ####[facility] [address] [place] [address]Dr. Ashok Bailey Urea nitrogen [Mass/Vol] 20.0 mg/dL Critically high 7.0-18 .0 [facility] Comment on above: Performed By: #### C MP, URIC, MG, PHOS ####[facility] [address] [place], [place] [address]Dr. Ashok Bailey Urea nitrogen/Creatinine [Ma ss ratio] 14.8 mg/mg Normal [facility] Comment on above: Performed By: #### C MP, URIC, MG, PHOS ####[facility] [address] [place] [address]Dr. Ashok Bailey UA RANDOMon 06-01-2022 Bilirubin Ql (U) Negative Normal NEGATIVE [facility] Comment on above: Performed By: #### U A #### [facility] [address] [place] [address] [address] Ashok Bailey Clarity (U) CLEAR Normal CLEAR [facility] Comment on above: Performed By: #### U A #### [facility] [address] [place] [address] [address] Ashok Bailey Color (U) LT. YELLOW Normal YELLOW [facility] Comment on above: Performed By: #### U A #### [facility] [address] [place] [address] [address] Ashok Bailey Glucose Ql (U) Negative Normal NEGATIVE [facility] Comment on above: Performed By: #### U A #### [facility] [address] [place] [address] Dr. Ashok Bailey Hemoglobin Ql (U) Negative Normal NEGATIVE [facility] Comment on above: Performed By: #### U A #### [facility] [address] [place] [address] Dr. Ashok Bailey Ketones Ql (U) Negative Normal NEGATIVE [facility] Comment on above: Performed By: #### U A #### [facility] [address] [place] [address] Dr. Ashok Bailey LEUKOCYTES Negative Normal NEGATIVE [facility] Comment on above: Performed By: #### U A #### [facility] [address] [place] [address] Dr. Ashok Bailey Nitrite Ql (U) Negative Normal NEGATIVE [facility] Comment on above: Performed By: #### U A #### [facility] [address] [place] [address] Dr. Ashok Bailey pH (U) 6.0 [pH] Normal 5-9 [facility] Comment on above: Performed By: #### U A #### [facility] [address] [place] [address] Dr. Ashok Bailey SPEC GRAVITY 1.010 Normal 1.005-<=1. 025 [facility] Comment on above: Performed By: #### U A #### [facility] [address] [place] [address] Dr. Ashok Bailey UA PROTEIN Negative Normal NEGATIVE/ TRACE [facility] Comment on above: Performed By: #### U A #### [facility] [address] [place] [address] Dr. Ashok Bailey Urobilinogen Qn (U) 0.2 {Drew'U}/dL Normal 0.2 - 1.0 [facility] Comment on above: Performed By: #### U A #### [facility] [address] [place] [address] Dr. Ashok Bailey URIC ACID SERUMon 06-01-2022 Urate [Mass/Vol] 3.9 mg/dL Normal 2.6-6.0 [facility] Comment on above: Performed By: #### C MP, URIC, MG, PHOS ####[facility] [address] [place], [place] [address]HwDr. Ashok Bailey URINE T PROTEIN CREAT RATIOo n 06-01-2022 Protein (U) [Mass/Vol] 14.0 mg/dL Critically high <=12.0 [facility] Comment on above: Performed By: #### U RTPCR #### [facility] [address] [place] [address] [address] Ashok Bailey UR PROT CREAT RAT 0.28 [facility] Comment on above: Performed By: #### U RTPCR #### [facility] [address] [place] [address] [address] Ashok Bailey URINE CREAT 50.47 mg/dL Normal 20.00-300. 00 [facility] Comment on above: Performed By: #### U RTPCR #### [facility] [address] [place] [address] [address] Ashok Bailey VITAMIN D 25 OHon 06-01-2022 VIT D 25-OH 19.2 ng/mL Normal [facility] Comment on above: Performed By: #### F T4 #### [facility] [address] [place] [address] [address] Ashok Bailey VIT D RANGES SEE BELOW Normal [facility] Comment on above: Result Comment: <20 ng/mL Vit D deficient 20 - <30 ng/mL Vit D insufficient 30 - 100 ng/mL Vit D sufficient >100 ng/mL Potential Toxicity Performed By: #### F T4 #### [facility] [address] [place] [address] [address] Ashok Bailey US KIDNEYSon 05-03-2022 US KIDNEYS US KIDNEYS EXAM DATE: 05/03/2022 7:10 AM MST COMPARISON: None available. INDICATION: Stage IV chronic kidney disease. TECHNIQUE: Real-time ultrasound scanning of the kidneys and bladder was performed by the insole reinforcer. Product Marketing Engineer static images are submitted for review. FINDINGS: [...] by: JOBY POLO Date: 2022-05-03 12:33 Normal [facility] FREE T4on 03-25-2022 Free T4 [Mass/Vol] 1.26 ng/dL Normal 0.76-1.46 [facility] Comment on above: Performed By: #### F T4 #### [facility] [address] [place] [address] [address] Ashok Bailey PROF CHEM 8 (BAS METB)on Anion gap [Moles/Vol] 17.6 mmol/L Normal [facility] Comment on above: Performed By: #### B MP, TSH ####[facility] [address] [place] [id number]. Ashok Bailey Calcium [Mass/Vol] 8.9 mg/dL Normal 8.5-10.1 [facility] Comment on above: Performed By: #### B MP, TSH ####[facility] [address] [place] [id number] Bailey Chloride [Moles/Vol] 97 mmol/L Critically low 98-107 [facility] Comment on above: Performed By: #### B MP, TSH ####[facility] [address] [place] [id number]. Ashok Bailey CO2 [Moles/Vol] 22.2 mmol/L Normal 21.0-32.0 [facility] Comment on above: Performed By: #### B ROBERTO, TSH ####[facility] [address] [place], [place] [address]Dr. Ashok Bailey Creatinine [Mass/Vol] 2.42 mg/dL Critically high 0.55-1.02 [facility] Comment on above: Performed By: #### Becki MEJIA, TSH ####[facility] [address] [place], [place] [address]Dr. Ashok Bailey EGFR-AF SENEGALESE 24 mL/min/1.73m2 Critically low >=60 [facility] Comment on above: Performed By: #### Becki MEJIA, TSH ####[facility] [address] [place], [place] [address]Dr. Neelamandrew Bailey EGFR-NON AF SENEGALESE 20 mL/min/1.73m2 Critically low >=60 [facility] Comment on above: Performed By: #### Becki MEJIA, TSH ####[facility] [address] [place], [place] [address]Dr. Ashok Bailey Glucose [Mass/Vol] 84 mg/dL Normal 74-106 [facility] Comment on above: Performed By: #### Becki MEJIA, TSH ####[facility] [address] [place], [place] [address]Dr. Ashok Bailey Potassium [Moles/Vol] 4.8 mmol/L Normal 3.5-5.1 [facility] Comment on above: Performed By: #### Becki MEJIA, TSH ####[facility] [address] [place], [place] [address]Dr. Ashok Bailey Sodium [Moles/Vol] 132 mmol/L Critically low 136-145 [facility] Comment on above: Performed By: #### Becki MEJIA, TSH ####[facility] [address] [place], [place] [address]Dr. Neelamandrew Bailey Urea nitrogen [Mass/Vol] 43.0 mg/dL Critically high 7.0-18 .0 [facility] Comment on above: Performed By: #### Becki MEJIA, TSH ####[facility] [address] [place], [place] [address]FrDr. Ashok Bailey Urea nitrogen/Creatinine [Ma ss ratio] 17.8 mg/mg Normal [facility] Comment on above: Performed By: #### B MP, TSH ####[facility] [address] [place], [place] [address]TlDr. Ashok Bailey TSHon 03-25-2022 TSH 2.368 uIU/mL Normal 0.358-3.74 0 [facility] Comment on above: Performed By: #### B MP, TSH ####[facility] [address] [place], [place] [address]VcAlex Bailey CPKon 11-12-2021 CK [Catalytic activity/Vol] 207 U/L Critically high 26- 192 [facility] Comment on above: Performed By: #### C MP, CK, TSH, LIPID #### [facility] [address] [place] [address] [address] Ashok Bailey FREE T4on 11-12-2021 Free T4 [Mass/Vol] 1.16 ng/dL Normal 0.76-1.46 [facility] Comment on above: Performed By: #### F T4 #### [facility] [address] [place] [address] [address] Ashok Bailey LIPID PROFILEon 11-12-2021 CHOL-HDL RATIO NORM SEE BELOW Normal [facility] Comment on above: Result Comment: 3.3 - 4.4 LOW RISK 4.4 - 7.1 AVERAGE RISK 7.1 - 11.0 MODERATE RISK >11.0 HIGH RISK Performed By: #### C MP, CK, TSH, LIPID #### [facility] [address] [place] [address] [address] Ashok Bailey Cholesterol [Mass/Vol] 215 mg/dL Critically high <=200 [facility] Comment on above: Performed By: #### C MP, CK, TSH, LIPID #### [facility] [address] [place] [id number] Ashok Bailey Cholesterol in HDL [Mass/Vol] 74 mg/dL Critically high 4 0-60 [facility] Comment on above: Performed By: #### C MP, CK, TSH, LIPID #### [facility] [address] [place] [address] [address] Ashok Bailey Cholesterol in LDL [Mass/Vol] 114.4 mg/dL Normal [facility] Comment on above: Performed By: #### C MP, CK, TSH, LIPID #### [facility] [address] [place] [address] [address] Ashok Bailey Cholesterol.total/Cholestero l in HDL [Mass ratio] 2.9 {ratio} Normal [facility] Comment on above: Performed By: #### C MP, CK, TSH, LIPID #### [facility] [address] [place] [id number] Dr. Ashok Bailey HDL NORMAL > or = 60 mg/dl - LOW CARDIOVASCULAR RISK <40 mg/dl - HIGH CARDIOVASCULAR RISK Normal [facility] Comment on above: Performed By: #### C MP, CK, TSH, LIPID #### [facility] [address] [place] [address] Dr. Ashok Bailey LDL CALC NORMAL SEE BELOW Normal [facility] Comment on above: Result Comment: <100 mg/dl OPTIMAL 100 - 129 mg/dl NEAR OR ABOVE OPTIMAL 130 - 159 mg/dl BORDERLINE HIGH 160 - 189 mg/dl HIGH >190 mg/dl VERY HIGH Performed By: #### C MP, CK, TSH, LIPID #### [facility] [address] [place] [address] Dr. Ashok Bailey Triglyceride [Mass/Vol] 133 mg/dL Normal <=150 [facility] Comment on above: Performed By: #### C MP, CK, TSH, LIPID #### [facility] [address] [place] [address] Dr. Ashok Bailey VLDL CALC 26.6 mg/dL Normal [facility] Comment on above: Performed By: #### C MP, CK, TSH, LIPID #### [facility] [address] [place] [address] Dr. Ashok Bailey PROF 14(COMP METB)on 022 Albumin [Mass/Vol] 3.9 g/dL Normal 3.4-5.0 [facility] Comment on above: Performed By: #### C MP, CK, TSH, LIPID #### [facility] [address] [address] [address] Ashok Bailey Albumin/Globulin [Mass ratio] 1.1 {ratio} Normal [facility] Comment on above: Performed By: #### C MP, CK, TSH, LIPID #### [facility] [address] [place] [address] Dr. Ashok Bailey ALP [Catalytic activity/Vol] 84 U/L Normal 46-116 [facility] Comment on above: Performed By: #### C MP, CK, TSH, LIPID #### [facility] [address] [place] [address] Dr. Ashok Bailey ALT [Catalytic activity/Vol] 18 U/L Normal 14-59 [facility] Comment on above: Performed By: #### C MP, CK, TSH, LIPID #### [facility] [address] [place] [address] Dr. Ashok Bailey Anion gap [Moles/Vol] 15.1 mmol/L Normal [facility] Comment on above: Performed By: #### C MP, CK, TSH, LIPID #### [facility] [address] [place] [address] Dr. Ashok Bailey AST [Catalytic activity/Vol] 11 U/L Critically low 15- 37 [facility] Comment on above: Performed By: #### C MP, CK, TSH, LIPID #### [facility] [address] [place] [address] Dr. Ashok Bailey Bilirubin [Mass/Vol] 0.3 mg/dL Normal 0.2-1.0 [facility] Comment on above: Performed By: #### C MP, CK, TSH, LIPID #### [facility] [address] [place] [address] Dr. Ashok Bailey Calcium [Mass/Vol] 9.3 mg/dL Normal 8.5-10.1 [facility] Comment on above: Performed By: #### C MP, CK, TSH, LIPID #### [facility] [address] [place] [address] Dr. Ashok Bailey Chloride [Moles/Vol] 101 mmol/L Normal 98-107 [facility] Comment on above: Performed By: #### C MP, CK, TSH, LIPID #### [facility] [address] [address] [address] Ashok Bailey CO2 [Moles/Vol] 22.9 mmol/L Normal 21.0-32.0 [facility] Comment on above: Performed By: #### C MP, CK, TSH, LIPID #### [facility] [address] [address] [address] Ashok Bailey Creatinine [Mass/Vol] 1.67 mg/dL Critically high 0.55-1.02 [facility] Comment on above: Performed By: #### C MP, CK, TSH, LIPID #### [facility] [address] [place] [address] Dr. Ashok Bailey EGFR-AF SENEGALESE 36 mL/min/1.73m2 Critically low >=60 [facility] Comment on above: Performed By: #### C MP, CK, TSH, LIPID #### [facility] [address] [place] [address] Dr. Ashok Bailey EGFR-NON AF SENEGALESE 30 mL/min/1.73m2 Critically low >=60 [facility] Comment on above: Performed By: #### C MP, CK, TSH, LIPID #### [facility] [address] [place] [address] Dr. Ashok Bailey Globulin (S) [Mass/Vol] 3.5 g/dL Normal [facility] Comment on above: Performed By: #### C MP, CK, TSH, LIPID #### [facility] [address] [place] [address] Dr. Ashok Bailey Glucose [Mass/Vol] 96 mg/dL Normal 74-106 [facility] Comment on above: Performed By: #### C MP, CK, TSH, LIPID #### [facility] [address] [place] [address] Dr. Ashok Bailey Potassium [Moles/Vol] 5.0 mmol/L Normal 3.5-5.1 [facility] Comment on above: Performed By: #### C MP, CK, TSH, LIPID #### [facility] [address] [address] [address] Ashok Bailey Protein [Mass/Vol] 7.4 g/dL Normal 6.4-8.2 [facility] Comment on above: Performed By: #### C MP, CK, TSH, LIPID #### [facility] [address] [address] [address] Ashok Bailey Sodium [Moles/Vol] 134 mmol/L Critically low 136-145 [facility] Comment on above: Performed By: #### C MP, CK, TSH, LIPID #### [facility] [address] [place] [address] Dr. Ashok Bailey Urea nitrogen [Mass/Vol] 27.0 mg/dL Critically high 7.0-18 .0 [facility] Comment on above: Performed By: #### C MP, CK, TSH, LIPID #### [facility] [address] [address] [address] Ashok Bailey Urea nitrogen/Creatinine [Ma ss ratio] 16.2 mg/mg Normal [facility] Comment on above: Performed By: #### C MP, CK, TSH, LIPID #### [facility] [address] [place] [address] Dr. Ashok Bailey TSHon 11-12-2021 TSH 3.073 uIU/mL Normal 0.358-3.74 0 [facility] Comment on above: Performed By: #### C MP, CK, TSH, LIPID #### [facility] [address] [place] [address] Dr. Ashok Bailey [facility] 05-30-2021 Albumin [Mass/Vol] 4.7 g/dL Normal 3.6-5.1 [facility] Comment on above: Performed By: #### 7 600, [address] #### [facility] [address], [address] [place] [id number] Pantry Attendant: Austin Tobin MD Albumin/Globulin [Mass ratio] 1.8 {ratio} Normal 1.0-2 .5 [facility] Comment on above: Performed By: #### 7 600, 12133 #### [facility] of [address], [address] [place] [address] Pantry Attendant: Austin Tobin MD ALP [Catalytic activity/Vol] 84 U/L Normal 37-153 [facility] Comment on above: Performed By: #### 7 600, 13115 #### [facility] of [address], [address] [place] [address] Pantry Attendant: Austin Tobin MD ALT [Catalytic activity/Vol] 13 U/L Normal 6-29 [facility] Comment on above: Performed By: #### 7 600, 56202 #### [facility] of [address], [address] [place] [address] Pantry Attendant: Austin Tobin MD AST [Catalytic activity/Vol] 12 U/L Normal 10-35 [facility] Comment on above: Performed By: #### 7 600, 13306 #### [facility] of [address] [address] Pantry Attendant: Austin Tobin MD Bilirubin [Mass/Vol] 0.3 mg/dL Normal 0.2-1.2 [facility] Comment on above: Performed By: #### 7 600, 25186 #### [facility] of [address] [address] Pantry Attendant: Austin Tobin MD BUN/CREATININE RATIO NOT APPLICABLE Normal 6-22 [facility] Comment on above: Performed By: #### 7 600, 26483 #### [facility] of [address], [address] [place] [address] Pantry Attendant: Austin Tobin MD Calcium [Mass/Vol] 10.2 mg/dL Normal 8.6-10.4 [facility] Comment on above: Performed By: #### 7 600, 31222 #### [facility] of [address] [place] [address] Pantry Attendant: Austin Tobin MD Chloride [Moles/Vol] 99 mmol/L Normal 98-110 [facility] Comment on above: Performed By: #### 7 600, 68196 #### [facility] [address], [address] [place] [address] Pantry Attendant: Austin Tobin MD CO2 [Moles/Vol] 29 mmol/L Normal 20-32 [facility] Comment on above: Performed By: #### 7 600, 11605 #### [facility] [address], [address] [place] [address] Pantry Attendant: Austin Tobin MD Creatinine [Mass/Vol] 0.71 mg/dL Normal 0.60-0.[address] [facility] Comment on above: Result Comment: For patients >49 years of age, the reference limit for Creatinine is approximately 13% higher for people identified as -Swazi. Performed By: #### 7 600, 41258 #### [facility] [address], [address] [place] [address] Pantry Attendant: Austin Tobin MD eGFR NON-AFR. SENEGALESE 84 mL/min/1.73m2 Normal > OR = 60 [facility] Comment on above: Performed By: #### 7 600, 15693 #### [facility] [address], [address] [place] [address] Pantry Attendant: Austin Tobin MD GFR/1.73 sq M.predicted rosa m g blacks MDRD (S/P/Bld) [Vol rate/Area] 97 mL/min/{1.73_m2} Normal > OR = 60 [facility] Comment on above: Performed By: #### 7 600, 79207 #### [facility] of [address], [address] [place] [address] Pantry Attendant: Austin Tobin MD Globulin (S) [Mass/Vol] 2.6 g/dL Normal 1.9-3.7 [facility] Comment on above: Performed By: #### 7 600, 79434 #### [facility] of [address], [address] [place] [address] Pantry Attendant: Austin Tobin MD Glucose [Mass/Vol] 86 mg/dL Normal 65-99 [facility] Comment on above: Result Comment: Fasting reference interval Performed By: #### 7 600, 23035 #### [facility] of [address] [address] Pantry Attendant: Austin Tobin MD Potassium [Moles/Vol] 4.4 mmol/L Normal 3.5-5.[address] [facility] Comment on above: Performed By: #### 7 600, 85913 #### [facility] of [address], [address] [place] [address] Pantry Attendant: Austin Tobin MD Protein [Mass/Vol] 7.3 g/dL Normal 6.1-8.1 [facility] Comment on above: Performed By: #### 7 600, 33086 #### [facility] of [address] [place] [address] Pantry Attendant: Austin Tobin MD Sodium [Moles/Vol] 135 mmol/L Normal 135-146 [facility] Comment on above: Performed By: #### 7 600, 38235 #### [facility] of [address] [place] [address] Pantry Attendant: Austin Tobin MD Urea nitrogen [Mass/Vol] 10 mg/dL Normal 7-25 [facility] Comment on above: Performed By: #### 7 600, 49685 #### [facility] of [address] [place] [address] Pantry Attendant: Austin Tobin MD LIPID PANEL, [facility] - Cholesterol [Mass/Vol] 214 mg/dL High <200 [facility] Comment on above: Performed By: #### 7 600, 05435 #### [facility] of [address] [place] [address] Pantry Attendant: Austin Tobin MD Cholesterol in HDL [Mass/Vol] 85 mg/dL Normal > OR = 50 [facility] Comment on above: Performed By: #### 7 600, 66966 #### [facility] of [address], [address] [place] [address] Pantry Attendant: Austin Tobin MD Cholesterol in LDL [Mass/Vol] [...] LDL-C. Jordan SS et al. JAUN. 2013;310(19): 4513-7421 (http://education.[employer]/faq/SVT347) Performed By: #### 7 600, 56264 #### [facility] [address], [address] [place] [address] Pantry Attendant: Austin Tobin MD Cholesterol.total/Cholestero l in HDL [Mass ratio] 2.5 {ratio} Normal <5.0 [facility] Comment on above: Performed By: #### 7 600, 36633 #### [facility] [address], [address] [place] [address] Pantry Attendant: Austin Tobin MD NON HDL CHOLESTEROL 129 mg/dL (calc) Normal <130 [facility] Comment on above: Result Comment: For patients with diabetes plus 1 major ASCVD risk factor, treating to a non-HDL-C goal of <100 mg/dL (LDL-C of <70 mg/dL) is considered a therapeutic option. Performed By: #### 7 600, 64729 #### [facility] [address], [address] [place] [address] Pantry Attendant: Austin Tobin MD Triglyceride [Mass/Vol] 113 mg/dL Normal <150 [facility] Comment on above: Performed By: #### 7 600, 51450 #### [facility] [address], [address] [place] [address] Pantry Attendant: Austin Tobin MD COMPREHENSIVE METABOLIC PANE [facility] 05-04-2021 Albumin [Mass/Vol] 4.3 g/dL Normal 3.6-5.1 [facility] Comment on above: Performed By: #### 7 600, 06508 #### [facility] of [address] [address] Pantry Attendant: Austin Tobin MD Albumin/Globulin [Mass ratio] 1.8 {ratio} Normal 1.0-2 .5 [facility] Comment on above: Performed By: #### 7 600, 07922 #### [facility] of [address], [address] [place] [address] Pantry Attendant: Austin Tobin MD ALP [Catalytic activity/Vol] 82 U/L Normal 37-153 [facility] Comment on above: Performed By: #### 7 600, 89032 #### [facility] of [address] [place] [address] Pantry Attendant: Austin Tobin MD ALT [Catalytic activity/Vol] 11 U/L Normal 6-29 [facility] Comment on above: Performed By: #### 7 600, 88628 #### [facility] of [address], [address] [place] [address] Pantry Attendant: Austin Tobin MD AST [Catalytic activity/Vol] 12 U/L Normal 10-35 [facility] Comment on above: Performed By: #### 7 600, 18931 #### [facility] of [address] [address] Pantry Attendant: Austin Tobin MD Bilirubin [Mass/Vol] 0.4 mg/dL Normal 0.2-1.2 [facility] Comment on above: Performed By: #### 7 600, 19710 #### [facility] of [address] [place] [address] Pantry Attendant: Austin Tobin MD BUN/CREATININE RATIO NOT APPLICABLE Normal 6-22 [facility] Comment on above: Performed By: #### 7 600, 27730 #### [facility] of [address], [address] [place] [address] Pantry Attendant: Austin Tobin MD Calcium [Mass/Vol] 9.4 mg/dL Normal 8.6-10.4 [facility] Comment on above: Performed By: #### 7 600, 13336 #### [facility] [address] [place] [address] Pantry Attendant: Austin Tobin MD Chloride [Moles/Vol] 98 mmol/L Normal 98-110 [facility] Comment on above: Performed By: #### 7 600, 98976 #### [facility] [address] [place] [address] Pantry Attendant: Austin Tobin MD CO2 [Moles/Vol] 28 mmol/L Normal 20-32 [facility] Comment on above: Performed By: #### 7 600, 63175 #### [facility] [address] [place] [address] Pantry Attendant: Austin Tobin MD Creatinine [Mass/Vol] 0.73 mg/dL Normal 0.60-0.93 [facility] Comment on above: Result Comment: For patients >49 years of age, the reference limit for Creatinine is approximately 13% higher for people identified as -Swazi. Performed By: #### 7 600, 38491 #### [facility] [address] [place] [address] Pantry Attendant: Austin Tobin MD eGFR NON-AFR. SENEGALESE 82 mL/min/1.73m2 Normal > OR = 60 [facility] Comment on above: Performed By: #### 7 600, 07463 #### [facility] [address] [place] [address] Pantry Attendant: Austin Tobin MD GFR/1.73 sq M.predicted rosa m g blacks MDRD (S/P/Bld) [Vol rate/Area] 95 mL/min/{1.73_m2} Normal > OR = 60 [facility] Comment on above: Performed By: #### 7 600, 25019 #### [facility] [place] [address] Pantry Attendant: Austin Tobin MD Globulin (S) [Mass/Vol] 2.4 g/dL Normal 1.9-3.7 [facility] Comment on above: Performed By: #### 7 600, 34274 #### [facility] [place] [address] Pantry Attendant: Austin Tobin MD Glucose [Mass/Vol] 102 mg/dL Normal 65-139 [facility] Comment on above: Result Comment: Non-fasting reference interval For someone without known diabetes, a glucose value between 100 and 125 mg/dL is consistent with prediabetes and should be confirmed with a follow-up test. Performed By: #### 7 600, 33009 #### [facility] [place] [address] Pantry Attendant: Austin Tobin MD Potassium [Moles/Vol] 4.3 mmol/L Normal 3.5-5.[address] [facility] Comment on above: Performed By: #### 7 600, 97993 #### [facility] [place] [address] Pantry Attendant: Austin Tobin MD Protein [Mass/Vol] 6.7 g/dL Normal 6.1-8.1 [facility] Comment on above: Performed By: #### 7 600, 63374 #### [facility] [place] [address] Pantry Attendant: Austin Tobin MD Sodium [Moles/Vol] 132 mmol/L Low 135-146 [facility] Comment on above: Performed By: #### 7 600, 56383 #### [facility] [place] [address] Pantry Attendant: Austin Tobin MD Urea nitrogen [Mass/Vol] 12 mg/dL Normal 7-25 [facility] Comment on above: Performed By: #### 7 600, 63319 #### [facility] [place] [address] Pantry Attendant: Austin Tobin MD LIPID PANEL, STANDARD Cholesterol [Mass/Vol] 168 mg/dL Normal <200 [facility] Comment on above: Order Comment: FASTI NG:NO FASTING: NO Performed By: #### 7 600, 76275 #### [facility] [address], [address] [place] [address] Pantry Attendant: Austin Tobin MD Cholesterol in HDL [Mass/Vol] 79 mg/dL Normal > OR = 50 [facility] Comment on above: Order Comment: FASTI NG:NO FASTING: NO Performed By: #### 7 600, 68923 #### [facility] [address], [address] [place] [address] Pantry Attendant: Austin Tobin MD Cholesterol in LDL [Mass/Vol] [...] LDL-C. Jordan SS et al. JAUN. 2013;310(19): 1196-4152 (http://education.[employer]/faq/AZN688) Performed By: #### 7 600, 49481 #### [facility] [address], [address] [place] [address] Pantry Attendant: Austin Tobin MD Cholesterol.total/Cholestero l in HDL [Mass ratio] 2.1 {ratio} Normal <5.0 [facility] Comment on above: Order Comment: FASTI NG:NO FASTING: NO Performed By: #### 7 600, 51459 #### [facility] [place] [address] Pantry Attendant: Austin Tobin MD NON HDL CHOLESTEROL 89 mg/dL (calc) Normal <130 [facility] Comment on above: Order Comment: FASTI NG:NO FASTING: NO Result Comment: For patients with diabetes plus 1 major ASCVD risk factor, treating to a non-HDL-C goal of <100 mg/dL (LDL-C of <70 mg/dL) is considered a therapeutic option. Performed By: #### 7 600, 16309 #### [facility] [address] [place] [address], [address] Pantry Attendant: Austin Tobin MD Triglyceride [Mass/Vol] 79 mg/dL Normal <150 [facility] Comment on above: Order Comment: FASTI NG:NO FASTING: NO Performed By: #### 7 600, 79233 #### [facility] [address], [address] [place] [address] Pantry Attendant: Austin Tobin MD Vital Signs Date Time Vital Sign Value Performing Clinician Facility 10-24-2023 10:52-0400 Body height 160.02 cm [facility] 10-24-2023 10:52-0400 Body mass index (BMI) [Ratio] 24.5 kg/m2 [facility] 10-24-2023 10:52-0400 Body temperature 97.8 [degF] [facility] 10-24-2023 10:52-0400 Body weight 62.76 kg [facility] 10-24-2023 10:52-0400 Diastolic blood pressure 67 mm[Hg] [facility] 10-24-2023 10:52-0400 Heart rate 80 /min [facility] 10-24-2023 10:52-0400 Respiratory rate 18 /min [facility] 10-24-2023 10:52-0400 SaO2% (BldA) [Mass fraction] 99 % [facility] 10-24-2023 10:52-0400 Systolic blood pressure 126 mm[Hg] [facility] 03-30-2023 08:33-0500 Body height 160 cm Lian UREÑA Work Phone: [facility] 03-30-2023 08:33-0500 Body mass index (BMI) [Ratio] 24.66 kg/m2 Lian UREÑA Work Phone: [facility] 03-30-2023 08:33-0500 Body temperature 97.9 [degF] Lian Dan APRN-FLOOR POLISHER [facility] 03-30-2023 08:33-0500 Body weight 63.14 kg Lian Dan PROBATION MANAGER-FLOOR POLISHER Work Phone: [employer] 03-30-2023 08:33-0500 Diastolic blood pressure 58 mm[Hg] Lian Dan PROBATION MANAGER-FLOOR POLISHER [facility] 03-30-2023 08:33-0500 Heart rate 78 /min Lian Dan APRN-FLOOR POLISHER [facility] 03-30-2023 08:33-0500 SaO2% (BldA) [Mass fraction] 100 % Lian Dan APRN-FLOOR POLISHER [facility] 03-30-2023 08:33-0500 Systolic blood pressure 118 mm[Hg] Lian Dan APRN-FLOOR POLISHER Work Phone: [employer] 03-28-2023 11:20-0500 Body height 160.02 cm Demondlokesh [employer] Other [facility] Other 03-28-2023 11:20-0500 Body mass index (BMI) [Ratio] 24.83 kg/m2 Bri [employer] Other [facility] Other 03-28-2023 11:20-0500 Body temperature 96.9 [degF] Lassolokesh [employer] Other [facility] Other 03-28-2023 11:20-0500 Body weight 63.59 kg Bri [employer] Other [facility] Other 03-28-2023 11:20-0500 Diastolic blood pressure 70 mm[Hg] Bri Alonso Other [facility] Other 03-28-2023 11:20-0500 Systolic blood pressure 138 mm[Hg] Aziz Bakhous Other [facility] Other 10-11-2022 14:20-0400 Body height 160.02 cm Aziz Bakhous Other [facility] Other 10-11-2022 14:20-0400 Body mass index (BMI) [Ratio] 24.8 kg/m2 Aziz Bakhous Other [facility] Other 10-11-2022 14:20-0400 Body temperature 96.4 [degF] Aziz Bakhous Other [facility] Other 10-11-2022 14:20-0400 Body weight 63.5 kg Aziz Bakhous Other [facility] Other 10-11-2022 14:20-0400 Diastolic blood pressure 60 mm[Hg] Aziz Bakhous Other [facility] Other 10-11-2022 14:20-0400 Respiratory rate 18 /min Aziz Bakhous Other [facility] Other 10-11-2022 14:20-0400 Systolic blood pressure 130 mm[Hg] Aziz Bakhous Other [facility] Other 06-07-2022 10:20-0400 Body height 160.02 cm Aziz Bakhous Other [facility] Other 06-07-2022 10:20-0400 Body mass index (BMI) [Ratio] 24.55 kg/m2 Azlokesh Fays Other [facility] Other 06-07-2022 10:20-0400 Body temperature 97.2 [degF] Azlokesh Bakhous Other [facility] Other 06-07-2022 10:20-0400 Body weight 62.87 kg Azlokesh Bakhous Other [facility] Other 06-07-2022 10:20-0400 Diastolic blood pressure 72 mm[Hg] Aziz Deysihous Other [facility] Other 06-07-2022 10:20-0400 Respiratory rate 18 /min rBi Fays Other [facility] Other 06-07-2022 10:20-0400 SaO2% (BldA) [Mass fraction] 97 % Bri Fays Other [facility] Other 06-07-2022 10:20-0400 Systolic blood pressure 130 mm[Hg] Azlokesh Bakhous Other [facility] Other 04-26-2022 09:40-0500 Body height Bri Fays Other [facility] Other 04-26-2022 09:40-0500 Body mass index (BMI) [Ratio] 24.97 kg/m2 Aziz Bakhous Other [facility] Other 04-26-2022 09:40-0500 Body weight 63.96 kg Azlokesh Bakhous Other [facility] Other 04-26-2022 09:40-0500 Diastolic blood pressure 84 mm[Hg] Bri Alonso Other [facility] Other 04-26-2022 09:40-0500 SaO2% (BldA) [Mass fraction] 98 % Bri Alonso Other [facility] Other 04-26-2022 09:40-0500 Systolic blood pressure 150 mm[Hg] Bri Alonso Other [facility] Other Encounters Encounter Date Encounter Type Care Provider Facility Start: 02-29-2024 End: 02-29-2024 Orders Only [facility] Start: 02-22-2024 End: 02-22-2024 ambulatory [facility] Start: 01-31-2024 End: 01-31-2024 Refill Sandra Hernandez CMA [facility] Start: 01-03-2024 End: 01-03-2024 Refill Carson Sullivan DO Work Phone: [facility] Start: 01-01-2024 End: 01-01-2024 Refill Carson Sullivan DO Work Phone: [facility] Start: 12-28-2023 End: 12-28-2023 ambulatory [facility] Start: 12-25-2023 End: 12-25-2023 ambulatory Diamond Mooney MD Facility:[facility] Start: 10-24-2023 End: 10-24-2023 ambulatory [facility] Work Phone: Start: 10-24-2023 End: 10-24-2023 Patient encounter procedure [facility] Work Phone: Start: 10-17-2023 Non-patient / Non-visit [facility] Work Phone: Start: 10-16-2023 End: 10-16-2023 ambulatory Diamond Mooney MD Facility:[facility] Start: 10-10-2023 End: 10-10-2023 ambulatory [facility] Start: 09-26-2023 End: 09-26-2023 ambulatory [facility] Start: 07-14-2023 End: 07-14-2023 ambulatory YULIA HERNÁNDEZ Not Available Start: 06-28-2023 End: 06-29-2023 ambulatory [facility] Start: 06-28-2023 End: 06-28-2023 ambulatory [facility] Start: 06-03-[address] [facility] DO Work Phone: [facility] Comment on above: Special screening fo r malignant neoplasm of colon (Primary Dx) Start: 05-29-2023 Refill Farnaz Bennett PATIENT SAFETY MANAGER [facility] Comment on above: 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 Start: 05-19-2023 End: 05-19-2023 ambulatory YULIA HERNÁNDEZ Not Available Start: 2023 End: 2023 ambulatory Aden Baca Facility:[facility] Start: 05-02-2023 Refill Trixie Jeremy PATIENT SAFETY MANAGER [facility] Comment on above: 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 Start: 04-29-2023 Refill Lian L Ni PROBATION MANAGER-FLOOR POLISHER Work Phone: [facility] Start: 04-28-2023 End: 04-28-2023 ambulatory LIAN Michelle DAN [facility] Start: 04-17-2023 Refill Trixie Jeremy PATIENT SAFETY MANAGER [facility] Comment on above: Essential hypertensi on Start: 04-07-2023 Bamboo flowsheet Yuliatherese mullen PA Work Phone: [facility] Start: 04-07-2023 Bamboo flowsheet Yulia Boucher sebas PA Work Phone: [facility] Start: 04-07-2023 End: 04-07-2023 ambulatory YULIA HERNÁNDEZ Not Available Start: 04-07-2023 End: 04-07-2023 Patient encounter procedure Yulia Hernández PA Work Phone: [facility] Comment on above: Actinic keratosis (P rimary Dx) Start: 03-31-2023 End: 04-01-2023 ambulatory [facility] Start: 03-30-2023 End: 03-30-2023 Office outpatient visit 15 minutes [facility] PROBATION MANAGER-FLOOR POLISHER Work Phone: [facility] Comment on above: Chronic pain of both shoulders (Primary Dx); Peripheral vascular disease ([facility]); Stage 3b chronic kidney disease ([facility]); Smoker; Lumbosacral spondylosis without myelopathy Start: 03-30-2023 End: 03-30-2023 ambulatory [facility] Start: 03-28-2023 End: 03-28-2023 ambulatory Aziz Bakleslies Other [facility] Other Start: 03-28-2023 Office outpatient vi sit 25 minutes Aziz Bakhous [facility] Start: 03-20-2023 Refill Carson cordero DO Work Phone: [facility] Start: 03-10-2023 End: 03-10-2023 ambulatory YULIA MEYERSANS Not Available Start: 03-07-2023 End: 04-06-2023 ambulatory [facility] Start: 03-03-2023 Orders Only [facility] PROBATION MANAGER-FLOOR POLISHER Work Phone: [facility] Start: 03-02-2023 Refill Farnaz Bennett CMA [facility] Comment on above: 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 Start: 02-20-2023 End: 03-06-2023 ambulatory LIAN DAN [facility] Start: 10-11-2022 End: 10-11-2022 ambulatory Aziz Bakhous Other [facility] Other Start: 10-11-2022 Office outpatient vi sit 25 minutes Aziz Bakhous [facility] Start: 06-07-2022 End: 06-07-2022 ambulatory Aziz Bakhous Other [facility] Other Start: 06-07-2022 Patient encounter procedure Aziz Bakhous [facility] Start: 06-01-2022 End: 06-02-2022 ambulatory AZIZ BAKHOUS Facility:[facility] Start: 05-03-2022 End: 05-04-2022 ambulatory AZIZ BAKHOUS Facility:[facility] Start: 04-26-2022 End: 04-26-2022 ambulatory Aziz Bakhous Other [facility] Other Start: 04-26-2022 Office outpatient ne w 30 minutes Aziz Bakhous [facility] Start: 03-25-2022 End: 03-26-[address] CARSON SULLIVAN Facility:[facility] Start: 11-12-2021 End: 11-13-[address] CARSON SULLIVAN Facility:[facility] Start: 11-04-2021 End: 11-04-2021 ambulatory SABRINA MANUEL Facility:[facility] Start: 10-07-2021 End: 10-07-2021 ambulatory SABRINA MANUEL Facility:[facility] Procedures Date Procedure Procedure Detail Performing Clinician Start: 12-28-2023 Adult depression scr eening assessment Carson Sullivan DO Work Phone: Start: 04-28-2023 Adult depression scr eening assessment Lian Dan PROBATION MANAGER-FLOOR POLISHER Work Phone: Start: 04-07-2023 CRYOTHERAPY SKIN LESION Yulia Martinez Edgar FOSTER Work Phone: Start: 03-30-2023 Follow-up visit Follow-up LIAN DAN Start: 03-30-2023 Adult depression scr eening assessment Lian Dan PROBATION MANAGER-FLOOR POLISHER Work Phone: Start: 02-09-2023 Adult depression scr eening assessment Lian Dan PROBATION MANAGER-FLOOR POLISHER Work Phone: Plan of Treatment Date Care Activity Detail Author Start: 02-21-2025 Tobacco Screening Tobacco Screening [facility] Start: 12-27-2024 Adult BMI Screening Adult BMI Screen ing [facility] [employer] Start: 12-27-2024 Depression Screening Depression Scre ening [facility] Start: 12-27-2024 Fall Risk Screening Fall Risk Screen ing [facility] [employer] [facility] Start: 12-27-2024 Tobacco Screening Tobacco Screening [facility] Start: 10-10-2024 End: 10-10-2024 Patient encounter procedure 10/10/2024 9:40 AM EDT Office Visit [facility] [address] [place] [address] [facility] Start: 10-09-2024 Medicare Annual Well ness Visit Medicare Annual Wellness Visit [facility] Start: 04-28-2024 [facility] Start: 04-28-2024 [facility] Social Median Start: 04-28-2024 Fall Risk [facility]ening [facility] Start: 04-28-2024 Tobacco Screening Tobacco Screening [facility] Start: 04-10-2024 DTaP,Tdap and Td Vac cines (2 - Td or Tdap) DTaP,Tdap and Td Vaccines (2 - Td or Tdap) [facility] Start: 03-30-2024 Adult BMI Screening [facility] Start: 03-30-2024 Depression Screening Depression Scre ening [facility] Start: 03-30-2024 Fall Risk Screening Fall Risk Screen ing [facility] Start: 03-30-2024 Tobacco Screening Tobacco Screening [facility] Start: 03-26-2024 End: 03-26-2024 Patient encounter procedure 03/26/2024 1:30 PM EST Office Visit [facility] Internal Medicine - Family Medicine [address] [place] [address] Carson Sullivan, DO [address], [place] [address] [facility] Internal Medicine - Family Medicine Start: 02-22-2024 End: 02-22-2024 ambulatory 02/22/2024 2:15 PM EST Support Visit [facility] Internal Medicine - Family Medicine [address] [place] [address] Carson Sullivan, [address], [facility] [place] [address] [facility] Start: 02-10-2024 Adult BMI Screening Adult BMI Screen ing [facility] Start: 02-10-2024 Depression Screening Depression Scre ening [facility] Start: 02-10-2024 Fall Risk Screening Fall Risk Screen ing [facility] Start: 02-10-2024 Tobacco Screening Tobacco Screening [facility] Start: 08-17-2023 End: 08-17-2023 Patient encounter procedure 08/17/2023 11:40 AM EDT Office Visit [facility] [address] [place] [address] [facility] Internal Medicine - Family Medicine Start: 08-03-2023 Medicare Annual Well ness Visit Medicare Annual Wellness Visit [facility] Start: 07-19-2023 Administration of varicella zoster vaccine Zoster (Shingles) Vaccine (1 of 2) [facility] Comment on above: Postponed from 05/10 (Patient Refused) Start: 05-19-2023 End: 05-19-2023 Patient encounter procedure 05/19/2023 11:50 AM EDT Office Visit [facility] [address] [place] [id number] Yulia Hernández PA [address] [place] [address] [facility] Start: 04-07-2023 End: 04-07-2023 Patient encounter procedure 04/07/2023 10:20 AM EST Office Visit [facility] [address] [place] [address] Yulia Hernández PA [address] [place] [address] Arrived [facility] Comment on above: Arrived Start: 03-30-2023 End: 03-30-2024 XR Shoulder - left 2 Views X-ray shoulder left minimum 2 views Imaging Routine Chronic pain of both shoulders Expected: 03/30/2023, Expires: 03/30/2024 [facility] Work Phone: Comment on above: Expected: 03/30/2023 , Expires: 03/30/2024 Start: 03-30-2023 End: 03-30-2024 XR Shoulder - right 2 Views X-ray shoulder right minimum 2 views Imaging Routine Chronic pain of both shoulders Expected: 03/30/2023, Expires: 03/30/2024 [facility] Comment on above: Expected: 03/30/2023 , Expires: 03/30/2024 Start: 03-07-2023 End: 03-07-2023 Patient encounter procedure 03/07/2023 2:00 PM EST Appointment [facility] [address] [address] [facility] Start: 02-03-2023 Screening for malign ant neoplasm of colon Colon Cancer Screening 3 Year Cologuard [facility] Start: 05-10-1966 Administration of varicella zoster vaccine Zoster (Shingles) Vaccine (1 of 2) [facility] Start: 05-10-1965 Adult BMI Follow Up Plan Adult BMI Follow Up Plan [facility] Start: 1945 Tobacco Counseling Tobacco Counselin g [facility] Cologuard [facility] Cologuar d [facility] Lab Routine Special screening for malignant neoplasm of colon Ordered: 06/03/2023 [facility] Work Phone: Comment on above: Ordered: 06/03/2023 Renal function 2000 panel - Serum or Plasma [facility] Immunizations Immunization Date Immunization Notes Care Provider Fa [facility] 12-28-2023 Seasonal trivalent influenza vaccine, adjuvanted, preservative free Carson Biggskye DO Work Phone: [facility] 02-09-2023 Influenza Vaccine, Quadrivalent, Adjuvanted Lian Ni PROBATION MANAGER-FLOOR POLISHER Work Phone: [facility] 12-04-2020 influenza, high dose seasonal, preservative-free Lian Ni PROBATION MANAGER-FLOOR POLISHER Work Phone: [facility] 11-25-2019 influenza, injectabl e, quadrivalent, preservative free Lian Ni PROBATION MANAGER-FLOOR POLISHER Work Phone: [facility] 05-18-2019 Seasonal trivalent influenza vaccine, adjuvanted, preservative free Lian Ni PROBATION MANAGER-FLOOR POLISHER Work Phone: [facility] 11-19-2018 Seasonal trivalent influenza vaccine, adjuvanted, preservative free Lian Ni PROBATION MANAGER-FLOOR POLISHER Work Phone: [facility] 11-20-2017 influenza, injectabl e, quadrivalent, contains preservative Lian Ni PROBATION MANAGER-FLOOR POLISHER Work Phone: [facility] 11-20-2017 Seasonal trivalent influenza vaccine, adjuvanted, preservative free Lian Ni PROBATION MANAGER-FLOOR POLISHER Work Phone: [facility] 11-25-2016 influenza, injectabl e, quadrivalent, preservative free Lian Ni PROBATION MANAGER-FLOOR POLISHER Work Phone: [facility] 11-25-2016 influenza, seasonal, injectable Lian Ni PROBATION MANAGER-FLOOR POLISHER Work Phone: [facility] 03-14-2016 pneumococcal polysaccharide vaccine, 23 valent Lian Ni PROBATION MANAGER-FLOOR POLISHER Work Phone: [facility] 12-10-2015 influenza, high dose seasonal, preservative-free Lian Ni PROBATION MANAGER-FLOOR POLISHER Work Phone: [facility] 03-10-2015 pneumococcal conjuga te vaccine, 13 valent Lian Ni PROBATION MANAGER-FLOOR POLISHER Work Phone: [facility] 12-08-2014 influenza, seasonal, injectable, preservative free Lian Ni PROBATION MANAGER-FLOOR POLISHER Work Phone: [facility] 04-10-2014 tetanus toxoid, redu savanna diphtheria toxoid, and acellular pertussis vaccine, adsorbed Lian Ni PROBATION MANAGER-FLOOR POLISHER Work Phone: [facility] 12-23-2013 influenza virus vacc ine, unspecified formulation Lian Ni PROBATION MANAGER-FLOOR POLISHER Work Phone: [facility] 01-28-2013 pneumococcal conjuga te vaccine, 13 valent Lian Ni PROBATION MANAGER-FLOOR POLISHER Work Phone: [facility] Payers Date Payer Category Payer Self-pay 2023 Private Health Insurance 2013 Medicare [id number] 2013 Medicare O [facility] [id number] 1959 Medicare [id number] [id number] 1947 Unknown [id number] 2.16.840.1.308590.3.579. 2.593 1947 Unknown [id number] 2.16.840.1.319846.3.579. 2.593 1947 Unknown [id number] 2.16.840.1.722482.3.579. 2.593 1947 Unknown [id number] 2.16.840.1.990688.3.579. 2.593 1947 Unknown [id number] 2.16.840.1.596903.3.579. 2.593 1947 Unknown [id number] 2.16.840.1.061930.3.579. 2.593 1947 Unknown [id number] 2.16.840.1.531930.3.579. 2.1286 1947 Unknown [id number] 2.16.840.1.594687.3.579. 2.1286 1947 Unknown [id number] 2.16.840.1.696439.3.579. 2.1286 1947 Unknown [id number] 2.16.840.1.884980.3.579. 2.1286 1947 Unknown [id number] 2.16.840.1.756739.3.579. 2.1259 1947 Unknown [id number] 2.16.840.1.214296.3.579. 2.1259 1947 Unknown [id number] 2.16.840.1.603733.3.579. 2.1259 1947 Unknown [id number] 2.16.840.1.751509.3.579. 2.1259 1947 Unknown [id number] 2.16.840.1.897699.3.579. 2.196 1947 Unknown [id number] 2.16.840.1.842299.3.579. 2.196 1947 Unknown [id number] 2.16.840.1.623604.3.579. 2.1286 1947 Unknown [id number] 2.16.840.1.680562.3.579. 2.1286 1947 Unknown [id number] 2.16.840.1.392022.3.579. 2.6 1947 Unknown [id number] 2.16.840.1.798166.3.579. 2.1286 1947 Unknown [id number] 2.16.840.1.693870.3.579. 2.1286 1947 Unknown [id number] 2.16.840.1.877826.3.579. 2.1286 1947 Unknown [id number] 2.16.840.1.621917.3.579. 2.1286 Medicare Medicare [id number] Unknown [id number] 2.16.840.1.706306.3.579. 2.531 Social History Date Type Detail Facility Start: 07-18-2022 End: 08-02-2022 Sex Assigned At [facility] Start: 11-16-2021 End: 06-28-2023 Tobacco smoking status MDIS Smokes tobacco daily [facility] History of tobacco use Cigarette Smoker P [facility] Start: 11-16-2021 End: 07-18-2022 Cigarettes smoked current (pack per day) - Reported 1 [facility] Start: 11-16-2021 End: 06-28-2023 Tobacco use and exposure Smokeless tobacco non-user [facility] Start: 02-09-2023 End: 02-22-2024 Alcohol intake Lifetime non-drinker (finding) [facility] Do you belong to any clubs or organizations such as faith groups, unions, fraternal or athletic groups, or school groups? No [facility] Are you now , , , , never or living with a partner? [facility] How often to you hav e a drink containing alcohol? Monthly or less [facility] How many standard dr inks containing alcohol do you have on a typical day? 1 or 2 [facility] How often do you hav e 6 or more drinks on 1 occasion? Never [facility] How hard is it for y ou to pay for the very basics like food, housing, medical care, and heating Not hard at all [facility] Do you feel stress - tense, restless, nervous, or anxious, or unable to sleep at night because your mind is troubled all the time - these days [OSQ] Only a little [facility] Start: 1945 Sex Assigned At Not on file [facility] Start: 03-10-2023 Tobacco smoking status [facility] Tobacco smoking consumption unknown [facility] Start: 10-24-2023 Tobacco smoking status [facility] Smoker (finding) [facility] Start: 1945 Sex Assigned At Female [facility] Start: 06-28-2023 Tobacco Comment Trying to cut back-smoking about 1/2 PPD now but it depends; trying to quit so she can have shoulder replacement surgery [facility] Start: 10-09-2014 Sex Female (finding) [facility] Clinical Notes 10-07-2021 to 01-31-2024 Telephone Encounter - Sandra Hernandez, [facility] - 01/31/2024 12:45 PM ESTTelephone Encounter - Sandrajannie Ibrahimlory, [facility] - 01/31/2024 12:45 PM EST Note Date & Type Note Facility 11-27-2024 Miscellaneous Notes Formattin g of this note might be different from the original. Pt requesting refill on levothyroxine. [facility]. documented in this encounter [facility] 01-31-2024 Telephone encount er Note Pt requesting refill on levothyroxine. [facility]. 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 The pain has been going on for [...] Hyperlipidemia Hypokalemia Migraine Osteopenia Peripheral vascular disease ([facility]) Screen for colon cancer 02/04/2020 cologuard-negative Spinal [...] by mouth every morning 90 tablet 1 ij-rea-tupvh-calcium carb-K1 400 mcg-500 mg calcium-20 mcg tablet [...] or hospitalization) Allergies: Sulfa (sulfonamide antibiotics), Hydrochlorothiazide, Yjlbfji-aob-rhy reductase inhibitors, and Nickel Tobacco History: Social [...] Drug Screen, Urine; Future Peripheral vascular disease ([facility]) Stage 3b chronic kidney disease ([facility]) Smoker Follow-up: Will obtain new x-rays bilateral shoulders, order sent to the [facility]. Agree with stopping physical therapy if it is not making the pain any better. Patient would like a referral to Orthopedics in [place], this was placed in system. She should [...] file.Pt is due for refill 2/3 - [facility] placed for this specific date. At next appt, consider lowering dose to lowest effective dose to help control pain. NIRANJAN HERRERA APRN-CNP 04/02/23 1244 documented in this encounterGrace Cottage HospitalRecovr [id number] Evaluation note* Encounter Date Diagnosis Assessment Notes [...] WNL I asked the patient to continue evep-uto-qtpoilg vitamin D supplement 1999Mar, Nephrolithiasis (ICD-10 - N20.0) Renal ultrasound shows nonobstructive bilateral renal calculi which are small in size. I asked the patient to continue ample water intake [facility] Other 12-29-2023 History of Present illness Narrative* NIRANJAN Herrera - 03/03/2023 1:29 PM EST The OARRS/MAPPS database was reviewed today and found to be appropriate. No indication of medication diversion, or non compliance. Pt is due for refill 03/11/22, last filled 02/08/[address] Sullivan who is out of town. NIRANJAN Herrera 03/03/23 1332 [facility] Miscellaneous Notes* Telephone Encounter - Farnaz Bennett CMA - 03/02/2023 2:51 PM EST Pt called and would like a refill on her NORCO. Pharmacy is listed and correct. * Telephone Encounter - NIRANJAN Herrera - 03/02/2023 2:51 PM EST Pt is due for refill 03/11 - I will send but pharmacy will not fill until this time [facility] Telephone encounter Note* Telephone Encounter - Farnaz Bennett CMA - 03/02/2023 2:51 PM EST Pt called and would like a refill on her NORCO. Pharmacy is listed and correct. [facility]12-28-2023 Telephone encounter Note* Telephone Encounter - NIRANJAN Herrera - 03/02/2023 2:51 PM EST Pt is due for refill 03/11 - I will send but pharmacy will not fill until this time [facility]08-08-2023 Evaluation note* Encounter Date Diagnosis Assessment Notes [...] WNL I asked the patient to continue qmut-uwy-szkyssd vitamin D supplement 1999Oct, Nephrolithiasis (ICD-10 - N20.0) Renal ultrasound shows nonobstructive bilateral renal calculi which are small in size. I asked the patient to continue ample water intake [facility] Other 04-04-2023 Evaluation note* Encounter Date Diagnosis [...] is low at 19. I patient with kvhj-fqo-grbnshz vitamin D supplement 1999Jun, Nephrolithiasis (ICD-10 - N20.0) Renal ultrasound shows nonobstructive bilateral renal calculi which are small in size. I asked the patient to continue ample water intake [facility] Other 02-21-2023 Evaluation note* Encounter Date Diagnosis [...] at home and to follow low-salt diet [facility] Other 09-01-2022 NoteOPERATIVE NOTE OPERATION DATE: 11/04/2021 [...] ensuring mobility, phacoemulsification was performed in a apsyhad-nrb-ecbmpd-type fashion. After all nuclear material had been [...] up the following day for postoperative care.[facility] [id number] NoteHISTORY AND PHYSICAL EXAMINATION Date:11/03/2021 HISTORY: Patient [...] decline other than that of cataract. 2. [id number] patient was briefed in the office and [...] and go forward with this elective procedure.[facility] [id number] NoteOPERATIVE NOTE OPERATION DATE: 10/07/2021 SURGEON: Sabrina [...] ensuring mobility, phacoemulsification was performed in a pghfrej-rou-ghivqy-type fashion. After all nuclear material had been [...] up the following day for postoperative care.[facility] 10-07-2021 NoteHISTORY AND PHYSICAL EXAMINATION Date:10/06/2021 [...] decline other than that of cataract. 2. [id number] patient was briefed in the office and [...] and go forward with this elective procedure.[facility]* Diagnosis Lumbosacral spondylosis without myelopathy documented [facility] encounter [facility]* Diagnosis Chronic pain of both shoulders- Primary Peripheral vascular disease ([facility]) Unspecified peripheral vascular disease Stage 3b chronic kidney disease ([facility]) Smoker Tobacco use disorder Lumbosacral spondylosis without myelopathy [facility] Actinic keratosis- [facility] Essential hypertension Unspecified essential hypertension [facility] Diagnosis Lumbosacral spondylosis without myelopathy [facility] Diagnosis Special screening for malignant neoplasm of colon- Primary Special screening for malignant neoplasms, colon [facility] Diagnosis Lumbosacral spondylosis without myelopathy [facility] N[facility]ative - Reported* Type Description [...] History cataract surgery Hospitalization History See Sx Hx SUPR Other History general Narrative - Reported* Type [...] ON NOSE Hospitalization History See Sx Hx SUPR Other InstructionsNot on filedocumented in this [facility] filedocumented in [facility] filedocumented in [facility]* Attachments The following attachments cannot be sent through Care Everywhere. * Shoulder Pain Discharge Instructions (Austrian) [facility]ructionsNot on file documented in this encounterPro[facility] SystemInstructionsNot on file documented in this encounterPro[facility] SystemInstructionsNot on file documented [facility]ructionsNot on file documented in this encounterPro[facility] SystemInstructionsNot on file documented in this encounterPro[facility] SystemInstructionsNot on file documented in this encounterProMediReal [facility] SystemReason for referral (narrative)* Consultation (Routine) - Pending Review Specialty Diagnoses / Procedures Referred By Darby mon Referred To Contact Orthopedic Surgery Diagnoses Chronic pain of both shoulders Lian Dan, PROBATION MANAGER-FLOOR POLISHER [address] [place] [place] [address] Rosales Hylton MD [address] [place] [address] Referral ID Status Reason Start Date Expiration Date Visits Requested Visits Authorized [id number] Pending Review Specialty Services Required 03/30/2023 03/29/2024 1 1 [facility] Summary Purpose Family History Relationship Condition Age at Onset Recorded Date/T anne father Malignant neoplasm Unknown Unknown Heart disease Unknown family member Unknown mother Diabetes mellitus Unknown Hypertension Unknown son Unknown sister Malignant neoplasm Unknown Advance Directives Advance Directive Response Recorded Date/ Time Advance [...] CREATED AUTHOR AUTHOR'S ORGANIZ ATION 06/10/[address] [facility] DATE CREATED AUTHOR AUTHOR'S ORGANIZ ATION 04/09/2023 [facility] DATE CREATED AUTHOR AUTHOR'S ORGANIZ ATION 05/14/2023 [facility] DATE CREATED AUTHOR AUTHOR'S ORGANIZ ATION 06/30/2023 [facility] DATE CREATED AUTHOR AUTHOR'S ORGANIZ ATION 07/16/[address] [facility] DATE CREATED AUTHOR AUTHOR'S ORGANIZ ATION 12/31/2023 [facility] DATE CREATED AUTHOR AUTHOR'S ORGANIZ ATION 02/25/2024 [facility] REASON FOR VISIT (unrecogniz ed section and content) Reason Comments Med Refill Reason Comments Follow-up Follow up shoulders Reason Comments Follow-up Reason Onset Date Comments Med Refill 04/17/2023 Reason Onset Date Comments Med Refill 05/02/2023 Care Teams (unrecognized sec tion and content) Dairy Technician Relationship Specialty Start Date End Date Carson Sullivan DO [address], [place] [address] PCP - General Family Medicine 02/14/17 Dairy Technician Relationship Specialty Start Date End Date Carson Sullivan DO [address], [place] [address] PCP - General Family Medicine 02/14/17 Dairy Technician Relationship Specialty Start Date End Date Carson Sullivan DO [address], [place] [address] PCP - General Family Medicine 02/14/17 Dairy Technician Relationship Specialty Start Date End Date Carson Sullivan DO [address], [place] [address] PCP - General Family Medicine 02/14/17 Dairy Technician Relationship Specialty Start Date End Date Carson Sullivan DO [address], [place] [address] PCP - General Family Medicine 02/14/17 Dairy Technician Relationship Specialty Start Date End Date Carson Sullivan DO [address], [place] [address] PCP - General Family Medicine 02/14/17 Dairy Technician Relationship Specialty Start Date End Date Carson Sullivan DO [address], [place] [address] PCP - General Family Medicine 02/14/17 Team Status: Active Member Role Status Dates Carson Sullivan DO Primary Care Provider Active Team Status: Active Member Role Status Dates Carson Sullivan DO Primary Care Provider Active Start: October 17, 2023 Bri Alonso MD Attending Provider Active Star t: October 17, 2023 Team Status: Inactive Member Role Status Dates Carson Sullivan DO Primary Care Provider Active Start: October 24, 2023 End: October 24, 2023 Bri Alonso MD Attending Provider Active Star t: October 24, 2023 End: October 24, 2023 Dairy Technician Relationship Specialty Start Date End Date Carson Sullivan DO [address], [place] [address] PCP - General Family Medicine 02/14/17 Dairy Technician Relationship Specialty Start Date End Date Carson Sullivan DO [address], [place] [address] PCP - General Family Medicine 02/14/17 Dairy Technician Relationship Specialty Start Date End Date Carson Sullivan DO [address], [place] [address] PCP - General Family Medicine 02/14/17 Goals (unrecognized section and content) Goals may [...] BE BASED ON THE PRIMARY CLINICAL RECORDS. [employer] provides no warranty or guarantee of the accuracy or completeness of information in this document.
--- NOTE | 2024-03-01 14:38 | ED.GENADUL1 ---
HPI HPI - General Adult General Chief complaint: Allergic Reaction Stated complaint: RASH Time Seen by Provider: 03/01/24 14:25 Source: patient Mode of arrival: walk-in History of Present Illness HPI narrative: Patient coming to the ER with a rash that developed yesterday, rash started on her back as well as going around her left shoulder. It is painful not itchy and she denies any other complaints No exposure to anybody with similar symptoms Related Data Home Medications ?Medication ?Instructions ?Recorded ?Confirmed amlodipine 10 mg tablet (Norvasc) 10 mg PO DAILY 10/16/23 03/01/24 ascorbic acid (vitamin C) 500 mg mg PO 10/16/23 capsule aspirin 81 mg tablet,delayed 81 mg PO DAILY 10/16/23 03/01/24 release (Garth Low Dose Aspirin) cholecalciferol (vitamin D3) 125 125 mcg PO DAILY 10/16/23 03/01/24 mcg (5,000 unit) capsule duloxetine 60 mg capsule,delayed 60 mg PO DAILY 10/16/23 03/01/24 release levothyroxine 112 mcg tablet 112 mcg PO DAILY 10/16/23 03/01/24 (Euthyrox) lisinopril 40 mg tablet (Zestril) 40 mg PO DAILY 10/16/23 03/01/24 lorazepam 1 mg tablet 1 mg PO Q12H PRN agitation 10/16/23 03/01/24 lutein 20 mg capsule 20 mg PO DAILY 10/16/23 10/16/23 metoprolol succinate 25 mg 25 mg PO DAILY 10/16/23 03/01/24 tablet,extended release 24 hr (Toprol XL) omeprazole 20 mg capsule,delayed 20 mg PO BID 10/16/23 03/01/24 release oxycodone 5 mg capsule 5 mg PO .COMPLEX 10/16/23 03/01/24 Previous Rx's ?Medication ?Instructions ?Recorded valacyclovir 1 gram tablet 1,000 mg PO Q8H 7 days #21 tabs 03/01/24 Allergies Allergy/AdvReac Type Severity Reaction Status Date / Time hydrochlorothiazide Allergy Unknown Unknown Verified 03/01/24 14:24 Tcrxsna-RIF-MeP Reductase Allergy Unknown Unknown Verified 03/01/24 14:24 Inhibitor Sulfa (Sulfonamide Allergy Unknown Unknown Verified 03/01/24 14:24 Antibiotics) Opioid HPI Opioid Management Most Recent Opioid Data: No Data to Display Review of Systems ROS Status of ROS 10 or more systems reviewed and unremarkable except as noted in history and below [facility] Social History Little interest or pleasure in doing things: not at all Feeling down, depressed, or hopeless: not at all Exam Narrative Exam Narrative: Nurses notes and vital signs reviewed and patient is not hypoxic. General: Well-appearing and in no apparent distress. Skin: The patient have a maculopapular rash on the left upper aspect almost the scapular aspect of the left side with mildly on the deltoid area on the left side as well, no vesicles Head: Normocephalic, atraumatic. Neck: Supple, non-tender. Eye: Pupils are equal, round and EOMI. No scleral icterus. Ears, Nose, Mouth, and Throat: TM are clear, no nasal mucosal hypertrophy. Oral mucosa is moist, no posterior oropharynx erythema, uvula is mid-line Cardiovascular: Regular Rate and Rhythm without murmur, gallop or rub. Respiratory: No accessory muscle use or respiratory distress. Lungs are clear to auscultation, no wheezing, rales or rhonchi Chest Wall: no tenderness Back: No midline thoracic or lumbar vertebral tenderness. No CVA tenderness Musculoskeletal: normal ROM, no calf or popliteal tenderness, no lower extremity edema/swelling GI: Abdomen is soft, non-distended. Normal bowel sounds. No masses appreciated. No tenderness to palpation. No rebound, guarding, or rigidity noted. Neurological: A&O x4. No cranial nerve dysfunction observed. No truncal ataxia. Moves all extremities. Sensation intact. Psychiatric: Cooperative and interactive. Normal mood and affect. Constitutional Vital Signs, click to edit/add: Last Vital Signs Temp 97.6 F 03/01/24 14:24 Pulse 71 03/01/24 14:24 Resp 16 03/01/24 14:24 BP 110/59 03/01/24 14:24 Pulse Ox 99 03/01/24 14:24 O2 Del Method Room Air 03/01/24 14:24 Course Vital Signs Vital signs: Vital Signs Temperature 97.6 F 03/01/24 14:24 Pulse Rate 71 03/01/24 14:24 Respiratory Rate 16 03/01/24 14:24 Blood Pressure 110/59 03/01/24 14:24 Pulse Oximetry 99 03/01/24 14:24 Oxygen Delivery Method Room Air 03/01/24 14:24 Temperature 97.6 F 03/01/24 14:24 Pulse Rate 71 03/01/24 14:24 Respiratory Rate 16 03/01/24 14:24 Blood Pressure 110/59 03/01/24 14:24 Pulse Oximetry 99 03/01/24 14:24 Oxygen Delivery Method Room Air 03/01/24 14:24 Medical Decision Making MDM Narrative Medical decision making narrative: The patient presentation is concerning for shingles she was started right away and valacyclovir as she has started her symptoms within the first 24 hours She had no fever no chills no rash other than her back and left shoulder and right now she was instructed about monitoring her symptoms in case of fever or increasing rash or any rash showing up in her face she will come back to the ER She also have Percocet for pain control at home Patient also instructed on hydration and avoiding any alcohol drinking with the medication she had her blood workup reviewed from October of this year and it was showing normal liver function The patient is to follow up with primary care physician in next 2-3 days or to return to the emergency department should any of the signs or symptoms worsen or new symptoms develop. The patient agrees with the following Diagnosis and Treatment plan and the patient will be discharged home. Discharge Plan Discharge Chief Complaint: Allergic Reaction Clinical Impression: Shingles Patient Disposition: Home, Self-Care Time of Disposition Decision: 14:36 Condition: Good Prescriptions / Home Meds: New valacyclovir 1 gram tablet 1,000 mg PO Q8H 7 Days Qty: 21 0RF No Action levothyroxine [Euthyrox] 112 mcg tablet 112 mcg PO DAILY duloxetine 60 mg capsule,delayed release(DR/EC) 60 mg PO DAILY omeprazole 20 mg capsule,delayed release(DR/EC) 20 mg PO BID metoprolol succinate [Toprol XL] 25 mg tablet extended release 24 hr 25 mg PO DAILY amlodipine [Norvasc] 10 mg tablet 10 mg PO DAILY lisinopril [Zestril] 40 mg tablet 40 mg PO DAILY aspirin [Garth Low Dose Aspirin] 81 mg tablet,delayed release (DR/EC) 81 mg PO DAILY ascorbic acid (vitamin C) 500 mg capsule PO cholecalciferol (vitamin D3) 125 mcg (5,000 unit) capsule 125 mcg PO DAILY lutein 20 mg capsule 20 mg PO DAILY Rx Instructions: give with meal/snack lorazepam 1 mg tablet 1 mg PO Q12H PRN (Reason: agitation) oxycodone 5 mg capsule 5 mg PO .COMPLEX Rx Instructions: 5 mg orally FIVE TIMES A DAY; Print Language: Icelandic Instructions: Gary (ED) Referrals: ADALGISA DE JESUS [Primary Care Provider] - 1 week
== END 2024-03-01 14:45 | disposition home or self-care (01) ==
PROVIDERS: Emergency Provider Emergency Medicine; PCP Family Medicine
DX: B02.9 Zoster without complications (principal)
CPT/HCPCS: 99284

== ENCOUNTER 2024-03-27 12:48 | Outpatient (OUT) | payer MEDICARE, SELFPAY ==
--- NOTE | 2024-03-27 13:17 | PM.CN ---
Consult Note: HPI Data of Consult Patient: known to practice within the last 3 years Requesting Physician: Cata Wagn NP Primary Care Provider: ADALGISA DE JESUS Consult Narrative Reason for consult: f/u Narrative: Drea Tellez a pleasant 78 year old female presents for evaluation and management of severe bilateral shoulder and low back pain. Hx of 3 back surgeries, no recent advanced imaging of lumbar spine. Recent shoulder imaging consistent with severe OA of bilateral shoulders, planning for replacement in the near future. Pt has failed non-opioid treatments including tylenol and duloxetine, cannot take NSAIDs with stage 4 CKD. Pt does regularly see her ict customer support officer and PCP. currently on duloxetine 60mg daily through PCP and PRN tylenol, as well as oxycodone 5mg five times daily as needed for moderate to severe pain through our office. MIRANDA 38%. pt denies side effects from medications, does have recent narcan script. reports failed response to RFAs at previous pain clinics. cc:: CC: Cata Wang NP Review of Systems ROS Status of ROS 10 or more systems reviewed and unremarkable except as noted in history and below Musculoskeletal Reports: back pain and joint pain PFSH PFSH Social History Little interest or pleasure in doing things: not at all Feeling down, depressed, or hopeless: not at all Meds Home Medications and Allergies Home Medications ?Medication ?Instructions ?Recorded ?Confirmed ?Type amlodipine 10 mg tablet (Norvasc) 10 mg PO DAILY 10/16/23 03/01/24 History ascorbic acid (vitamin C) 500 mg mg PO 10/16/23 History capsule aspirin 81 mg tablet,delayed 81 mg PO DAILY 10/16/23 03/01/24 History release (Garth Low Dose Aspirin) cholecalciferol (vitamin D3) 125 125 mcg PO DAILY 10/16/23 03/01/24 History mcg (5,000 unit) capsule duloxetine 60 mg capsule,delayed 60 mg PO DAILY 10/16/23 03/01/24 History release levothyroxine 112 mcg tablet 112 mcg PO DAILY 10/16/23 03/01/24 History (Euthyrox) lisinopril 40 mg tablet (Zestril) 40 mg PO DAILY 10/16/23 03/01/24 History lorazepam 1 mg tablet 1 mg PO Q12H PRN agitation 10/16/23 03/01/24 History lutein 20 mg capsule 20 mg PO DAILY 10/16/23 10/16/23 History metoprolol succinate 25 mg 25 mg PO DAILY 10/16/23 03/01/24 History tablet,extended release 24 hr (Toprol XL) omeprazole 20 mg capsule,delayed 20 mg PO BID 10/16/23 03/01/24 History release oxycodone 5 mg capsule 5 mg PO .COMPLEX 10/16/23 03/01/24 History valacyclovir 1 gram tablet 1,000 mg PO Q8H 7 days #21 tabs 03/01/24 Rx naloxone 4 mg/actuation nasal 1 spray intranasal Q2M #1 ea 03/20/24 Rx spray (Narcan) oxycodone 5 mg tablet See Rx Instructions .Route 03/20/24 Rx .COMPLEX PRN pain #150 tabs Allergies Allergy/AdvReac Type Severity Reaction Status Date / Time hydrochlorothiazide Allergy Unknown Unknown Verified 03/01/24 14:24 [id number]-[id number] Reductase Allergy Unknown Unknown Verified 03/01/24 14:24 Inhibitor Sulfa (Sulfonamide Allergy Unknown Unknown Verified 03/01/24 14:24 Antibiotics) Exam Constitutional Documenting provider has reviewed patient's vital signs: yes Common normals: no apparent distress, oriented x3, healthy appearing, alert and well nourished General appearance: cooperative HENMT Common normals: normocephalic, hearing grossly normal bilaterally and moist oral mucous membranes Head and scalp: normocephalic Eye Common normals: PERRL Pupil: PERRL Neck & C-Spine Common normals: full ROM General: normal visual inspection Chest Common normals: inspection of chest normal Respiratory Common normals: normal respiratory effort, no retractions and no use of accessory muscles Back & Pelvis Lumbar spine/lower back: ROM limited, pain with ROM and straight leg raise positive right Sacroiliac joints: SI joint(s) abnormal Other: right SIJ positive dinora(patricks), gaenslens, thigh thrust, compression test decreased sensation to right L4,5,S1 dermatomes strength 4/5 in BLE Neuro Common normals: oriented x3, CN's II-XII intact bilaterally, moves all extremities, no focal motor deficits, no sensory deficits noted and deep tendon reflexes 2+ bilaterally Sensorium/orientation: alert Motor exam: no movement abnormalities noted Psych Common normals: mental status grossly normal, thought process normal, cooperative, affect normal, speech normal and activity/motor behavior normal Speech: normal speech Thought process: normal thought process Results Additional Findings Additional findings: If on a controlled substance or opioids, I have checked an [place] report on this patient and there are no aberrancies noted in the prescribing history.??If on a controlled substance or opioid a drug screen was completed and reviewed within the last year, and if there has not been a drug screen completed we ordered one today to monitor higher risk, state monitored pain medication use. As part of providing excellent, safe, comprehensive care, the following was completed at our patient's visit: 1. A medication reconciliation and review to ensure accurate knowledge of current/active medications, including asking our patients to inform us about any [id number] medications or herbal remedies/nutritional supplements/alternative remedies. 2. A review to specifically ensure our patients have had annual screening for screening for depression, screening for tobacco use, and screening for unhealthy alcohol use. For concerning screenings had a discussion with the patient, provided patient education, and recommended follow-up with primary care provider when appropriate. If patient noted with a risk of falling, they received education on strength, gait, and balance training to prevent future risk of falling. Portions of this note may have been carried over from the previous visit and updated as appropriate. Please note this office utilizes paper charting in addition to the electronic medical record. A list of current medications, vitals, and PMH is available there as the clinical staff outside of myself do not have access to [employer] charting during the clinic day operations. As part of providing quality comprehensive care the current medications, vitals, and PMH were reviewed in the paper chart. Assessment and Plan Assessment and Plan (1) Lumbar postlaminectomy syndrome: (2) Bilateral shoulder pain: Qualifiers: Chronicity: chronic Qualified Code(s): M25.511 - Pain in right shoulder; M25.512 - Pain in left shoulder; G89.29 - Other chronic pain (3) Lumbar stenosis with neurogenic claudication: (4) Chronic prescription opiate use: Plan pt is high risk for opioid therapy with age and CKD, however she finds moderate pain relief and functional improvement with current medication regimen. we reviewed the risks vs benefits, we previously prescribed naloxone and i again reinforced the need for this medication to be available at home and her to educate her friends and family on it. in the future should pain worsen/function worsen we should trial butrans. continue HEP as tolerated. continue f/u with PCP, nephrology and orthopedics. pt to call when she schedules shoulder surgery, verbalized understanding and agreement. defer interventional therapy at this time as pain is controlled per pt and shes failed injections in the past. f/u 3 months, sooner if needed
== END 2024-03-27 12:49 | disposition home or self-care (01) ==
LOC: PM 12:48
PROVIDERS: PCP Family Medicine; Visit Provider Nurse Practitioner
DX: M96.1 Postlaminectomy syndrome, not elsewhere classified (principal); M25.511 Pain in right shoulder; M25.512 Pain in left shoulder; G89.29 Other chronic pain; M48.062 Spinal stenosis, lumbar region with neurogenic claudication; Z79.891 Long term (current) use of opiate analgesic
CPT/HCPCS: G0463

== ENCOUNTER 2024-04-02 13:30 | Outpatient (OUT) | payer MEDICARE, SELFPAY ==
--- OUTSIDE RECORDS SUMMARY | 2024-04-02 13:52 | XMS_ITS | CCD ---
Author Organization [facility] Care Team Providers Care Solar Energy Technician Name Role Phone Bri Alonso Unavailable NEAL, DR CARSON Luciano Admitting Unavailable FURLONG, DR CARSON Luciano Attending Unavailable FURLONG, DR CARSON Luciano Consulting Unavailable FURLONG, DR CARSON Luciano Primary Care Unavailable BAKBRI EPPS Admitting Unavailable JOBY POLO Consulting Unavailable FURLONG, DR CARSON Luciano Primary Care Unavailable BAKDYLONS, CRYSTALIZ Attending Unavailable BAKDYLONSCRYSTALIZ Consulting Unavailable BAKDYLONSCRYSTALIZ Consulting Unavailable MISC, DR BANKS Admitting Unavailable [...] Unavailable FURLONG, CARSON G Primary Care Unavailable IN, LIAN L Referring Unavailable FURLONG, CARSON G [...] (20 sources) hydroCHLOROthiazide; Translations: [HYDROCHLOROTHIAZIDE] Drug Allergy 023 Itching [facility] (1 source) Sulfonamides (Antibiotic) Drug allergy (disorder) [facility] Rep[facility] (20 sources) HMG-CoA reductase inhibitor; Translations: [HVEOIKS-ITH-SQE REDUCTASE INHIBITORS] Propensity to adverse reactions to drug pain [facility] (20 sources) nickel; Translations: [NICKEL] Drug Allergy 023 Rash [facility] (20 sources) Sulfonamides (Antibiotic); Translations: [SULFA (SULFONAMIDE ANTIBIOTICS)] Propensity to adverse reactions to drug Photosensitivity [facility] (3 sources) HMG-CoA reductase inhibitor Drug Allergy [facility] (3 sources) hydroCHLOROthiazide Drug Allergy Itching [facility] (3 sources) nickel sulfate Drug Allergy Rash [facility] (1 source) hydroCHLOROthiazide Drug Allergy 024 [facility] Repository (7 sources) DULoxetine; Translations: [DULOXETINE] Drug Allergy Other (See Comments) [facility] Medications Current Medications Medication Drug Class(es) Dates Sig (Normalized) Sig (Original) alendronic acid 70 mg oral tablet (3 sources) Bisphosphonate Start: 02-29-2024 take 1 tablet by [...] a day for 30 day(s) Active B Upsybjq-Arqitu-AB (Super B-Complex) tablet (3 sources) B Complex-Biotin -FA (Super B-Complex) tablet as directed Orally 0 Active Calcium 600 + D 600-200 MG-U NIT (4 sources) take 1 tablet by mouth once daily Calcium 600 + D 600-200 [...] TAB PO Daily February 07, 2018 1:00am rnaduer-vazpglcay-ndgs 333-133-5 MG per tablet (3 sources) calcium-magnesiu [...] 07, 2018 1:00am take 1 capsule by [facility] every twenty-four hours Vitamin D3 50 MCG (2000 UT) 1 capsule Orally Once a day Active docosahexaenoic acid 120 mg / eicosapentaenoic acid 180 mg oral capsule (3 sources) omega-3 (fish oil) 1000 MG capsule 1 capsule 1 (one) time each day at the same time 0 Active DULoxetine 60 mg delayed release oral capsule (17 sources) Serotonin and Norepinephrine Reuptake Inhibitor Start: 10-24-19 take 1 capsule by mouth once daily Duloxetine (Cymbalta) 60 mg capsule,delayed release(DR/EC) Active 60 MG PO Daily October 24, 2023 12:00am Start: 09-26-2023 take 1 capsule by mo [facility] in the morning DULoxetine (CYMBALTA) 60 mg capsule Take 1 capsule (60 mg total) by mouth in the morning. 30 capsule 2 09/26/2023 Active Start: 06-28-2023 End: 09-26-2023 take 1 capsule by mouth once daily in the morning DULoxetine (CYMBALTA) 30 mg capsule Indications: Fibromyalgia take 1 capsule by mouth every morning 30 capsule 1 09/10/2023 09/26/2023 Discontinued fluticasone propionate 0.05 mg/actuat metered dose nasal spray (20 sources) Corticosteroid Start: 10-19-2022 take 1 spray(s) nasal route in the [...] fsh/flx/prim/cur/bor/om3,6,9 5 (OMEGA 3-6-9 FATTY ACIDS ORAL) (20 sources) fsh/flx/prim/cur /bor/om3,6,9 5 (OMEGA 3-6-9 FATTY ACIDS ORAL) as directed Orally Active fsh/flx/prim/cur /bor/om3,6,9 5 (OMEGA 3-6-9 FATTY ACIDS ORAL) as directed Orally 0 Active Iron (1 source) take 1 tablet by mouth once daily Iron 28 MG 1 tablet Orally Once a day for 30 day(s) Active lactobacillus acidophilus [id number] unt oral capsule (20 sources) Lactobacillus acidophilus (PROBIOTIC) 10 billion cell capsule 1 capsule See Admin Instructions. Active levothyroxine sodium 0.112 mg oral tablet (20 sources) l-Thyroxine Start: 02-07-2018 End: 01-31-2024 take 1 tablet by mouth once daily in the morning levothyroxine (SYNTHROID, LEVOTHROID) 112 MCG tablet take 1 tablet by mouth every morning 90 tablet 3 11/09/2022 Active take 1 tablet by nabeel th once daily in the morning Levothyroxine Sodium 112 MCG 1 tablet on an empty stomach in the morning Orally Once a day for 30 day(s) Active lidocaine 0.05 mg/mg medicated patch (1 source) Antiarrhythmic, Amide Local Anesthetic Start: 03-12-2024 apply 1 dose transdermal route once daily as needed for pain, then apply 1 dose transdermal route every twelve hours as needed for pain lidocaine (LIDODERM) 5 % Indications: Post-herpetic polyneuropathy Place 1 patch on the skin daily as needed for pain. Remove & Discard patch within 12 hours or as directed by MD Tao patch 2 03/12/2024 Active lisinopril 40 mg oral tablet (20 sources) Angiotensin Converting Enzyme Inhibitor Start: 09-29-2022 End: 09-16-2023 take 1 tablet by mouth once daily lisinopriL (PRINIVIL,ZESTRIL) 40 mg tablet take 1 tablet by mouth once daily 90 tablet 3 09/16/2023 Active loratadine 10 mg oral tablet (20 sources) Start: 02-07-2018 End: 03-30-2023 take 10 mg by mouth once daily Loratadine Active 10 MG PO Daily February 07, 2018 1:00am End: 03-12-2024 take 1 tablet by mouth in the morning loratadine 10 mg capsule Take 1 tablet by mouth in the morning. 03/12/2024 Discontinued (Dose adjustment) LORazepam 1 mg oral tablet (20 sources) Benzodiazepine Start: 06-28-2023 End: 03-12-2024 take 1 tablet by mouth once daily [...] tablet Take 1 tablet by mouth daily. Active metoprolol tartrate 25 mg oral tablet (20 [...] tablet 1 10/07/2023 Active Start: 10-28-2022 End: 10-07-2023 take 1 tablet by mouth once daily [...] mouth in the morning. 0 05/02/2022 Active rv-rlz-ebhgk-calcium carb-K1 400 mcg-500 mg calcium-20 mcg tablet (20 sources) Start: 05-02-2022 take 1 tablet by mouth once in the morning qe-tsq-ijokv-calcium carb-K1 400 mcg-500 mg calcium-20 mcg tablet Take 1 tablet by mouth in the morning. 90 tablet 05/02/2022 Active Start: 05-02-2022 take 1 tablet by nabeel th once in the morning hj-dsw-dncyp-calcium carb-K1 400 mcg-500 mg calcium-20 mcg tablet Take 1 tablet by mouth in the morning. 90 tablet 0 05/02/2022 Active naloxone hydrochloride 40 mg/ml nasal spray (15 sources) Opioid Antagonist naloxone (NARC AN) 4 mg/actuation spray,non-aerosol nasal spray Administer 1 spray (4 mg total) into each nostril as needed. 1 spray Q2-3 minutes as needed Active naloxone (NARCAN) 4 mg/actuation spray,non-aerosol nasal spray (16 sources) naloxone (NARCAN ) 4 mg/actuation spray,non-aerosol nasal spray Administer 1 spray (4 mg total) into each nostril as needed. 1 spray Q2-3 minutes as needed Active 24 hr nicotine 0.875 mg/hr transdermal system (20 sources) Cholinergic Nicotinic Agonist Start: 024 apply 1 dose transdermal route once daily nicotine (NICODERM CQ) 21 mg/[address] 1 patch on the skin daily. 30 patch 1 04/28/2023 Active bg0-opg-sxv-fish-kri l-lut-zeax (MEGARED ADV TOTAL BODY REFRESH) [phone] mg capsule (20 sources) hc5-cnk-tzx-fish -kril-l ut-zeax (MEGARED ADV TOTAL BODY REFRESH) [phone] mg capsule Take by mouth. Active [place] 3 1000 MG (4 sources) take 1 capsule by mouth once daily [place] 3 1000 MG 1 capsule Orally Once a day for 30 day(s) Active omega-3 acid ethyl esters (shelter) 1000 mg oral capsule (1 source) Start: take 1000 mg by mouth once daily [place]-3 Acid Ethyl Esters Active 1000 MG PO Daily February 07, 2018 1:00am omeprazole 20 mg delayed release oral capsule (20 sources) Proton Pump Inhibitor Start: End: omeprazole (PriLOSEC) 20 mg capsule TAKE 1 CAPSULE TWICE DAILY 180 capsule 3 08/21/2023 Active take 1 tablet by mouth every [...] Active oxyCODONE hydrochloride 5 mg oral tablet (9 sources) Opioid Agonist Start: 12-26-2023 take 1 tablet by mouth five times daily as needed for pain oxyCODONE (ROXICODONE) 5 mg immediate release tablet TAKE 1 TABLET BY MOUTH FIVE TIMES DAILY NEEDED FOR PAIN 12/26/2023 Active Start: 02-15-2018 End: 2023 take 1 tablet by mouth once daily Oxycodone (Roxicodone) 5 mg Tablet Discontinued 5 MG PO Q4H 60 February 15, 2018 2023 10:12am Do not [...] hrs 15 mg Not-Taking polyethylene glycol [phone] mg powder for oral solution (20 sources) Osmotic Laxative Start: 02-07-2018 Polyethylene Glycol [...] days pseudoephedrine hydrochloride 30 mg oral tablet (6 sources) alpha-Adrenergic Agonist take 2 tablets by mouth every six hours as needed pseudoephedrine (SUDAFED) 30 mg tablet 2 tablets as needed Orally every 6 hrs Active rosuvastatin calcium 5 mg oral tablet (6 sources) HMG-CoA Reductase Inhibitor Start: 2023 take [...] 24, 2023 12:00am take 1 capsule by mo uth every twenty-four hours Probiotic 250 MG 1 capsule Orally once a day for 30 days Active take 1 capsule by mouth every tw elve hours Probiotic 250 MG 1 capsule Orally Twice a day for 30 day(s) Active Super B-Complex - (4 sources) Super B-Complex - as directed Orally Active Super B-Complex - as directed Orally Not-Taking traZODone hydrochloride 100 mg oral tablet (8 sources) Serotonin Reuptake Inhibitor Start: 12-28-2023 End: 03-12-2024 take 1 tablet by mouth once daily as needed for sleep traZODone (DESYREL) 100 mg tablet Take 1 tablet (100 mg total) by mouth nightly as needed for sleep. 03/12/2024 Active ubidecarenone 50 mg oral capsule (1 source) Start: 02-07-2018 Coenzyme Q10 ( Co Q-10) 50 mg Capsule Active 50 MG PO Daily February 07, 2018 1:00am Vitamin B Complex (1 source) Start: 10-24-2023 take 1 tablet by mouth once daily Vitamin B Complex Active 1 TAB PO Daily October 24, 2023 12:00am vitamin e 180 mg oral capsule (20 sources) Start: 02-07-2018 take 400 [IU] by [...] / HYDROcodone bitartrate 7.5 mg oral tablet (20 sources) Opioid Agonist Start: 06-03-2023 End: 07-03-2023 HYDROcodone-acetami nophen (NORCO) 7.5-325 mg per tablet Indications: Lumbosacral spondylosis without myelopathy Take 1 tablet by mouth every 6 (six) hours as needed for pain. Max Daily Amount: 4 tablets 120 tablet 06/03/2023 07/03/2023 Discontinued (Therapy completed) Start: 04-08-2023 End: 05-29-2023 HYDROcodone-acetaminophen (N ORCO) [...] / oxyCODONE hydrochloride 5 mg oral tablet (19 sources) Opioid Agonist Start: 07-03-2023 End: 10-27-2023 oxyCODONE-acetaminophen (PERCOCET) 5-325 mg per tablet Indications: Postlaminectomy syndrome, not elsewhere classified Take 1 tablet by mouth every 6 (six) hours as needed for pain for up to 30 days. Max Daily Amount: 4 tablets 120 tablet 08/31/2023 09/26/2023 Discontinued (Reorder) take 1 tablet by nabeel th every six hours oxyCODONE-Acetaminophen 5-325 MG 1 table t as needed Orally every 6 hrs Active benzonatate 100 mg oral capsule (15 sources) Non-narcotic Antitussive Start: 02-07-2018 End: 10-24-2023 take 1 capsule by mouth three times daily as needed for cough benzonatate (TESSALON PERLES) 100 mg capsule Take 1 capsule (100 mg total) by mouth 3 (three) times a day as needed for cough. 30 capsule 10/20/2022 06/28/2023 Discontinued (Therapy completed) take 1 capsule by mo uth three times daily as needed Benzonatate 200 MG 1 capsule Orally Thre e times a day as needed for 30 days Not-Taking cephalexin 500 mg oral capsule (1 source) [...] e-prescription and drug interaction check* Feb, Not-Taking Cavniuge-Rho-Bxe n-Fa-Vit K-Lut (Centrum Silver Women) 8 mg iron-400 mcg-300 mcg Tablet (1 source) Start: 02-07-2018 End: 10-24-2023 take 1 tablet by mouth once daily Gtougion-Dpm-Wnkp-Fa-V it K-Lut (Centrum Silver Women) 8 mg iron-400 mcg-300 mcg Tablet Discontinued 1 TAB PO Daily February 07, 2018 1:00am October 24, 2023 10:57am 24 hr niacin 1000 mg extended release oral tablet (16 sources) Nicotinic Acid Start: 02-07-2018 End: 10-24-2023 take 1000 mg by mouth once daily Niacin Discontinued 1000 MG PO Daily February 07, 2018 1:00am October 24, 2023 10:57am End: 06-28-2023 take 1 tablet by mouth twice daily at mealtime niacin 1,000 mg tablet extended release 1 tablet with food Orally BID 06/28/2023 Discontinued (Therapy completed) potassium 99 mg extended release oral tablet (1 source) take 1 tablet by mouth once daily Potassium 99 MG 1 tablet Orally Once a day for 30 day(s) Not-Taking potassium chloride 10 meq extended release oral tablet (12 sources) Start: 02-07-2018 End: 2023 take 10 mEq by mouth twice daily Potassium Chloride Discontinued 10 MEQ PO Twice daily February 07, 2018 1:00am 2023 10:12am End: 06-28-2023 potassium chloride (KLOR-CON SPRINKLE) 10 MEQ CR capsule 2 capsules with food Orally Once a day 06/28/2023 Discontinued (Therapy completed) Psyllium (1 source) Psyllium 100 % 1 packet with 8 ounces of liquid as needed Orally Three times a day *please review for potential _update for e-prescription and drug interaction check* Not-Taking sertraline 50 mg oral tablet (17 sources) Serotonin Reuptake Inhibitor Start: 3 End: 4 take 1 tablet by mouth once daily in the morning sertraline (ZOLOFT) 50 mg tablet take 1 tablet by mouth every morning 90 tablet 1 05/01/2023 06/28/2023 Discontinued (Ineffective) Vitamin B Complex (Super B-50 Complex) Capsule (1 source) Start: 8 End: 4 take 1 capsule by mouth once daily [...] Date Documented Da te Episodic/Chronic Anxiety disorders (20 sources) Anxiety; Translations: [Anxiety disorder, unspecified] Onset: 11-16-2021 11-16-2021 Chronic Asthma (20 sources) Reactive airway disease; Translations: [Unspecified asthma, [...] unspecified] 10-21-2023 Episodic Disorders of lipid metabolism (20 sources) Hyperlipidemia, unspecified; Translations: [Pure hypercholesterolemia , unspecified] Onset: 10-11-2021 Chronic Esophageal disorders (20 sources) Gastro-esophageal reflux disease without esophagitis; Translations: [Gastroesophageal reflux disease] Onset: 10-11-2021 11-16-2021 Chronic Essential hypertension (20 sources) Essential (primary) hypertension; Translations: [Essential hypertension] Onset: 05-03-2021 11-16-2021 Chronic Headache; including migraine (20 sources) Migraine; Translations: [Migraine, unspecified, not intractable, [...] D deficiency, unspecified] Onset: 11-16-2021 Chronic Osteoarthritis (18 sources) Arthritis of shoulder region joint; Translations: [...] [Pain in right shoulder] 03-30-2023 Episodic Other skin disorders (2 sources) Actinic keratosis; Translations: [Actinic keratosis] 04-07-2023 Episodic Other upper respiratory disease (20 sources) Allergic rhinitis; Translations: [Allergic rhinitis, unspecified] Onset: 09-21-2020 11-16-2021 Chronic Peripheral and visceral atherosclerosis (20 sources) Peripheral vascular disease; Translations: [Peripheral vascular disease, unspecified] Onset: 02-01-2021 11-16-2021 Chronic Residual codes; unclassified (1 source) Asymptomatic menopausal state; Translations: [Asymptomatic menopausal state] Onset: 02-22-2024 Episodic Spondylosis; intervertebral disc disorders; other back problems (20 sources) Degeneration of intervertebral disc; Translations: [Degeneration of intervertebral disc] Onset: 11-16-2021 11-16-2021 Chronic Substance-related disorders (20 sources) Nicotine dependence, cigarettes, uncomplicated; Translations: [Tobacco dependence syndrome] Onset: 10-11-2021 11-16-2021 Chronic Thyroid disorders (20 sources) Hypothyroidism, unspecified; Translations: [Hypothyroidism] Onset: 11-16-2021 2 Chronic Unclassified (1 source) Primary osteoarthritis, left shoulder; Translations: [Primary osteoarthritis, left shoulder] Onset: 2023 Unclassified (1 source) controlled sub Onset: 09-26-2023 Viral infection (3 sources) Post-herpetic polyneuropathy; Translations: [Postherpetic polyneuropathy] Onset: 03-12-2024 03-12-2024 Episodic Past or Other Problems Problem Classification Problem Date Documented Da te Episodic/Chronic Abdominal hernia (20 sources) Hiatal hernia; Translations: [Diaphragmatic hernia without obstruction or gangrene] Onset: 11-16-2021 11-16-2021 Episodic Complications of surgical procedures or medical care (20 sources) Complication of surgical procedure; Translations: [Unspecified complication of procedure, initial encounter] Onset: 10-26-2018 11-16-2021 Episodic Diabetes mellitus without complication (20 sources) Hyperglycemia; Translations: [Hyperglycemia, unspecified] Onset: 06-20-2016 11-16-2021 Episodic Fluid and electrolyte disorders (20 sources) Hypokalemia; Translations: [Hypokalemia] Onset: 11-16-2021 11-16-2021 Episodic Mood disorders (20 sources) Mood disorders Onset: 02-09-2023 Resolved: 09-26-2023 02-09-2023 Other bone disease and musculoskeletal deformities (20 sources) Osteopenia; Translations: [Other specified disorders of bone density and structure, unspecified site] Onset: 11-16-2021 11-16-2021 Episodic Other circulatory disease (20 sources) Femoral bruit; Translations: [Other specified symptoms and signs involving the circulatory and respiratory systems] Onset: 11-16-2021 11-16-2021 Episodic Other connective tissue disease (1 source) Myalgia, unspecified site; Translations: [MYALGIA UNSPECIFIED SITE] Onset: 11-19-2021 Episodic Other connective tissue disease (20 sources) Acquired trigger finger; Translations: [Trigger finger, unspecified finger] Onset: 11-16-2021 11-16-2021 Episodic Other connective tissue disease (20 sources) Fibromyalgia; Translations: [Fibromyalgia] Onset: 11-16-2021 11-16-2021 Episodic Other connective tissue disease (1 source) Fibromyalgia; Translations: [Fibromyalgia] Onset: 11-16-2021 Episodic Other non-epithelial cancer of skin (20 sources) Basal cell carcinoma of skin; Translations: [...] Episodic Other nutritional; endocrine; and metabolic disorders (20 sources) Overweight; Translations: [Overweight] Onset: 06-15-2016 Resolved: 07-18-2022 07-18-2022 Episodic Other screening for suspected conditions (not mental disorders or infectious disease) (2 sources) Patient encounter status; Translations: [Encounter for screening for malignant neoplasm of colon] 06-03-2023 Episodic Residual codes; unclassified (1 source) Acquired absence of both cervix and uterus; Translations: [ACQUIRED ABSENCE BOTH CERVIX AND UTERUS] Onset: 10-11-2021 Episodic Residual codes; unclassified (20 sources) Disturbance in sleep behavior; Translations: [Sleep disorder, unspecified] Onset: 06-28-2023 06-28-2023 Episodic Residual codes; unclassified (1 source) Sleep disorder, unspecified; Translations: [Sleep disorder, unspecified] Onset: 06-28-2023 Episodic Spondylosis; intervertebral disc disorders; other back problems (20 sources) Spinal stenosis of lumbar region; Translations: [Spinal stenosis, lumbar region without neurogenic claudication] Onset: 09-14-2017 11-16-2021 Episodic Results Test Name Value Interpretation Reference Range Facility Erythrocyte distribution wid th Auto (RBC) [Ratio]on 10-17-2023 Erythrocyte distribution wid th (RBC) [Ratio] 13.5 % 11.0-15.0 [facility] Estimated glomerular filtrat ion rate (GFR) non- Americanon 10-17-2023 GFR/1.73 sq M.predicted rosa m g non-blacks MDRD (S/P/Bld) [Vol rate/Area] 43 mL/min/{1.73_m2} Low >=60 [facility] Globulin Calc (S) [Mass/Vol] on 10-17-2023 Globulin (S) [Mass/Vol] 3.4 g/dL [facility] Hematocrit Auto (Bld) [Volum e fraction]on 10-17-2023 Hematocrit (Bld) [Volume fraction] 38.7 % 36.0-48.0 [facility] Hemoglobin [Mass/volume] in Bloodon 10-17-2023 Hemoglobin (Bld) [Mass/Vol] 12.8 g/dL 12.0-16. 0 [facility] Laboratory - Chemistry and C hemistry - challengeon 10-17-2023 Albumin [Mass/Vol] 4.0 g/dL 3.4-5.0 [facility] ALP [Catalytic activity/Vol] 94 U/L 46-116 [facility] ALT [Catalytic activity/Vol] 23 U/L 14-59 [facility] AST [Catalytic activity/Vol] 10 U/L Low 15-37 [facility] Bilirubin [Mass/Vol] 0.4 mg/dL 0.2-1.0 [facility] Calcium [Mass/Vol] 9.3 mg/dL 8.5-10.1 [facility] Chloride [Moles/Vol] 96 mmol/L Low 98-107 [facility] CO2 [Moles/Vol] 26.8 mmol/L 21.0-32.0 [facility] Creatinine [Mass/Vol] 1.21 mg/dL High 0.55-1.02 [facility] GFR/1.73 sq M.predicted MDRD (S/P/Bld) [Vol rate/Area] 52 mL/min/{1.73_m2} Low >=60 [facility] Glucose [Mass/Vol] 109 mg/dL High 74-106 [facility] Magnesium [Mass/Vol] 2.0 mg/dL 1.8-2.4 [facility] Potassium [Moles/Vol] 3.7 mmol/L 3.5-5.1 [facility] Protein [Mass/Vol] 7.4 g/dL 6.4-8.2 [facility] Sodium [Moles/Vol] 130 mmol/L Low 136-145 [facility] Urea nitrogen [Mass/Vol] 20.0 mg/dL High 7.0-18.0 [facility] Urea nitrogen/Creatinine [Ma ss ratio] 16.5 mg/mg [facility] Bilirubin Ql (U) Negative NEGATIVE [facility] Glucose (U) [Mass/Vol] Negative NEGATIVE [facility] Ketones Ql (U) TRACE mg/dL Abnormal NEGATIVE [facility] pH (U) 6.0 [pH] 5.0-9.0 [facility] Specific gravity (U) [Rel density] 1.015 1.005-1.02 5 [facility] Urobilinogen Qn (U) 0.2 {Drew'U}/dL 0.2-1.0 [facility] Laboratory - Specimen inform ationon 10-17-2023 Appearance (U) SL CLOUDY CLEAR [facility] Color (U) YELLOW YELLOW [facility] Laboratory - Urinalysison Leukocyte esterase Test stri p Ql (U) Negative NEGATIVE [facility] Nitrite Ql (U) Negative NEGATIVE [facility] Protein (U) [Mass/Vol] 23.3 mg/dL High <=11.9 [facility] Protein Ql (U) Negative NEG/TRACE [facility] Leukocytes [#/volume] correc di for nucleated erythrocytes in Blood by Automated counon 10-17-2023 WBC corrected for nucl RBC A uto (Bld) [#/Vol] 6.7 10 3/uL 4.0-11.0 [facility] MCH Auto (RBC) [Entitic mass ]on 10-17-2023 MCH (RBC) [Entitic mass] 32.7 pg 26.7-34.0 [facility] MCHC Auto (RBC) [Mass/Vol]on 10-17-2023 MCHC (RBC) [Mass/Vol] 33.1 g/dL 29.9-35.2 [facility] MCV Auto (RBC) [Entitic vol] on 10-17-2023 MCV (RBC) [Entitic vol] 98.7 fL 81.0-99.0 [facility] No Panel Informationon 10-16 25-Hydroxy Vitamin D Total 47.1 ng/mL [facility] Comment on above: <20 ng/mL Vit D defi cient20-<30 ng/mL Vit D kybjncplhtky22-395 ng/mL Vit D sufficient>100 ng/mL Potential Toxicity Parathyroid Hormone (Intact) 24 pg/mL 15-65 [facility] Comment on above: Performed at: - [address] [id number] Director: Billy Patel PhD, Phone: [phone] Urine Occult Blood Negative NEGATIVE [facility] Urine Random Creatinine 116.48 mg/dL 20.0 0-300. 00 [facility] Platelet mean volume Auto (B ld) [Entitic vol]on 10-17-2023 Platelet mean volume (Bld) [Entitic vol] 9.2 fL Low 9.5-13.5 [facility] Platelets Auto (Bld) [#/Vol] on 10-17-2023 Platelets (Bld) [#/Vol] 364 10 3/uL 150-450 [facility] RBC Auto (Bld) [#/Vol]on RBC (Bld) [#/Vol] 3.92 10 6/uL Low 4.20-5.40 [facility] Serum or plasma albumin/glob ulin mass ratioon 10-17-2023 Albumin/Globulin [Mass ratio] 1.2 {ratio} [facility] Serum or plasma anion gap de terminationon 10-17-2023 Anion gap [Moles/Vol] 10.9 mmol/L [facility] Urine protein/creatinine rat ioon 10-17-2023 Protein/Creatinine (U) [Ratio] 0.20 [facility] BASIC METABOLIC PANLon 06-27 Anion gap [Moles/Vol] 13 mmol/L Normal 5-15 [facility] Comment on above: Performed By: #### B MP, THYR #### [facility] ([id number]) [address], [address] [place] [address] Calcium [Mass/Vol] 9.9 mg/dL Normal 8.5-10.5 [facility] Comment on above: Performed By: #### Becki MEJIA, THYR #### [facility] ([id number]) [address], [address] [place] [address] Chloride [Moles/Vol] 100 mmol/L Normal 98-109 [facility] Comment on above: Performed By: #### B ROBERTO, THYR #### [facility] ([id number]) [address], [address] [place] [address] CO2 [Moles/Vol] 23 mmol/L Normal 22-32 [facility] Comment on above: Performed By: #### Becki MEJIA, THYR #### [facility] ([id number]) [address], [address] [place] [address] Creatinine [Mass/Vol] 1.20 mg/dL High 0.40-1.00 [facility] Comment on above: Result Comment: METH OD TRACEABLE TO IDMS STANDARD Performed By: #### B ROBERTO, THYR #### [facility] ([id number]) [address] [place] [address] GFR/1.73 sq M.predicted rosa m g non-blacks MDRD (S/P/Bld) [Vol rate/Area] 47 mL/min/{1.73_m2} Low >59 [facility] Comment on above: Result Comment: Reported eGFR is based on the CKD-EPI 2020 equation that does not use a race coefficient. Performed By: #### B ROBERTO, THYR #### [facility] ([id number]) [address] [place] [address] Glucose [Mass/Vol] 86 mg/dL Normal 65-99 [facility] Comment on above: Performed By: #### Becki MEJIA, THYR #### [facility] ([id number]) [address] [place] [address] Potassium [Moles/Vol] 4.3 mmol/L Normal 3.5-5.0 [facility] Comment on above: Performed By: #### B MP, THYR #### [facility] ([id number]) [address], [address] [place] [address] Sodium [Moles/Vol] 136 mmol/L Normal 134-146 [facility] Comment on above: Performed By: #### B MP, THYR #### [facility] ([id number]) [address], [address] [place] [address] Urea nitrogen [Mass/Vol] 26 mg/dL Normal 5-27 [facility] Comment on above: Performed By: #### B MP, THYR #### [facility] ([id number]) [address], [address] [place] [address] Basic Metabolic Panelon 06-05 Anion gap [Moles/Vol] 13 mmol/L 5 - 15 mmol/L [facility] Calcium [Mass/Vol] 9.9 mg/dL 8.5 - 10. 5 mg/dL [facility] Chloride [Moles/Vol] 100 mmol/L 98 - 10 9 mmol/L [facility] CO2 [Moles/Vol] 23 mmol/L 22 - 32 mmol/L [facility] Creatinine [Mass/Vol] 1.20 mg/dL High 0.40 - 1.00 mg/dL [facility] Comment on above: METHOD TRACEABLE TO IDMS STANDARD eGFR (CKD-EPI)non-race dependent 47 Low - PINF [facility] Comment on above: Reported eGFR is based on the CKD-EPI 2020 equation that does not use a race coefficient. Glucose [Mass/Vol] 86 mg/dL 65 - 99 mg/dL [facility] Interpretation and review of laboratory results Abnormal [facility] Potassium [Moles/Vol] 4.3 mmol/L 3.5 - 5.0 mmol/L [facility] Sodium [Moles/Vol] 136 mmol/L 134 - 146 mmol/L [facility] Urea nitrogen [Mass/Vol] 26 mg/dL 5 - 27 mg/dL [facility] THYROID PROFILEon 06-28-2023 Free T4 [Mass/Vol] 1.14 ng/dL Normal 0.61-1.60 [facility] Comment on above: Performed By: #### B MP, THYR #### [facility] ([id number]) [address], [address] [place] [address] TSH 0.81 uIU/mL Normal 0.49-4.67 [facility] Comment on above: Performed By: #### B MP, THYR #### [facility] ([id number]) [address] [address] [address] [place] [address] Thyroid profile includes TSH FT4on 06-28-2023 Free T4 [Mass/Vol] 1.14 ng/dL 0.61 - 1.60 ng/dL [facility] TSH Qn 0.81 m[IU]/L [facility] XR shoulder LT min 2V*on XR shoulder LT min 2V* [facility] [address] [place] [address] XRay Report Signed Patient: Mike Tellez MR#: [id number] : 1945 Acct:[id number] Age/Sex: 78 / F ADM Date: 05/11/23 [place] [facility] [place]: Type: [facility] Attending Dr: Aden Baca DO Copies to: [...] Justin Lucas M.D.05/11/2023 2:24 PM Dictation Location: [place] [address] Transcribed By: [facility] 05/11/23 142 Dictated By: Justin Lucas DO 05/11/23 142 Signed By: 05/11/23 142 [facility] No Panel Informationon 04-07 [facility] DRUG SCREEN, URINEon 024 AMPHETAMINE/METHAMP Negative Normal NEG [facility] Comment on above: Result Comment: AMPH /METH screening cut off = 1000 ng/mL Performed By: #### D HOLT #### [facility] ([id number]) [address], [address] [place] [address] BARBITURATES Negative Normal NEG [facility] Comment on above: Result Comment: Rhonda iturates screening cut off value = 200 ng/mL Performed By: #### D HOLT #### [facility] ([id number]) [address], [address] [place] [address] BENZODIAZEPINES Negative Normal NEG [facility] Comment on above: Result Comment: Guillermo odiazepines screening cut off value = 200 ng/mL Performed By: #### D HOLT #### [facility] ([id number]) [address] [place] [address] CANNABINOIDS Negative Normal NEG [facility] Comment on above: Result Comment: Shanita abinoids/THC screening cut off value = 50 ng/mL Performed By: #### D HOLT #### [facility] ([id number]) [address] [place] [address] COCAINE METABOLITE Negative Normal NEG [facility] Comment on above: Result Comment: Coca ine screening cut off value = 300 ng/mL Performed By: #### D HOLT #### [facility] ([id number]) [address] [place] [address] ECSTASY Negative Normal NEG [facility] Comment on above: Result Comment: Ecst asy screening cut off value = 500 ng/mL This report is intended for use in clinical monitoring or management of patients. Performed By: #### D HOLT #### [facility] ([id number]) [address] [place] [address] METHADONE Negative Normal NEG [facility] Comment on above: Result Comment: Meth adone screening cut off value = 300 ng/mL. Performed By: #### D HOLT #### [facility] ([id number]) [address] [place] [address] OPIATES Positive Abnormal NEG [facility] Comment on above: Result Comment: Conf irmation available upon request. Opiates screening cut off value = 300 ng/mL NOTE: This test is used for the detection of codeine, hydrocodone (>1000 ng/mL), morphine and hydromorphone (>900 ng/mL) in urine. Performed By: #### D HOLT #### [facility] ([id number]) [address] [place] [address] OXYCODONE Negative Normal [facility] Comment on above: Result Comment: Oxyc odone screening cut off value = 300 ng/mL NOTE: This test is used for the detection of oxycodone and oxymorphone in urine. Performed By: #### D HOLT #### [facility] ([id number]) [address] [place] [address] PHENCYCLIDINE Negative Normal NEG [facility] Comment on above: Result Comment: Phen cyclidine screening cut off value = 25 ng/mL Performed By: #### D HOLT #### [facility] ([id number]) [address] [place] [address] Drug Screen, Urineon 024 Amphetamines Screen method >1000 ng/mL Ql (U) Negative Negative^N [facility] Comment on above: AMPH/METH screening cut off = 1000 ng/mL Barbiturates Screen Ql (U) Negative N egative^N [facility] Comment on above: Barbiturates screeni ng cut off value = 200 ng/mL Benzodiazepines Ql (U) Negative Negat iggy^N [facility] Comment on above: Benzodiazepines scre ening cut off value = 200 ng/mL Cocaine Ql (U) Negative Negative^N [facility] Comment on above: Cocaine screening cu t off value = 300 ng/mL Interpretation and review of laboratory results Abnormal [facility] Methadone Screen Ql (U) Negative Nega tive^N ative [facility] Comment on above: Methadone screening cut off value = 300 ng/mL. Methylenedioxymethamphetamin e Screen Ql (U) Negative Negative^N [facility] Comment on above: Ecstasy screening cu t off value = 500 ng/mL This report is intended for use in clinical monitoring or management of patients. Opiates Screen Ql (U) Positive Abnormal Negati ve^N [facility] Comment on above: Confirmation availab le upon request. Opiates screening cut off value = 300 ng/mL NOTE: This test is used for the detection of codeine, hydrocodone (>1000 ng/mL), morphine and hydromorphone (>900 ng/mL) in urine. oxyCODONE Ql (U) Negative Negative^N [facility] Comment on above: Oxycodone screening cut off value = 300 ng/mL NOTE: This test is used for the detection of oxycodone and oxymorphone in urine. Phencyclidine Screen method >25 ng/mL Ql (U) Negative Negative^N [facility] Comment on above: Phencyclidine screen ing cut off value = 25 ng/mL Tetrahydrocannabinol Screen method >50 ng/mL Ql (U) Negative Negative^N [facility] Comment on above: Cannabinoids/THC scr eening cut off value = 50 ng/mL [facility] PTH INTACTon 06-02-2022 PTH, Intact 14 pg/mL Critically low 15-65 [facility] Comment on above: Performed By: #### P THINT ####[facility] [address] [place] [address]Dr. Ashok Bailey HEMOGRAM AND PLATELon 2022 Hematocrit (Bld) [Volume fraction] 32.0 % Critically low 36.0-48.0 [facility] Comment on above: Performed By: #### H H ####[facility] [address] [place] [address]Dr. Ashok Bailey Hemoglobin (Bld) [Mass/Vol] 10.6 g/dL Critically low 12.0 -16.0 [facility] Comment on above: Performed By: #### H H ####[facility] [address] [place] [address]Dr. Ashok Bailey MCH (RBC) [Entitic mass] 31.4 pg Normal 26.7-34.0 [facility] Comment on above: Performed By: #### H H ####[facility] [address] [place], [place] [address]Dr. Ashok Bailey MCHC (RBC) [Mass/Vol] 33.1 g/dL Normal 29.9-35.2 [facility] Comment on above: Performed By: #### H H ####[facility] [address] [place], [place] [address]Dr. Ashok Bailey MCV (RBC) [Entitic vol] 94.7 fL Normal 81.0-99.0 [facility] Comment on above: Performed By: #### H H ####[facility] [address] [place] [address]Dr. Ashok Bailey PLT 345 103/ul Normal 150-450 [facility] Comment on above: Performed By: #### H H ####[facility] [address] [place], [place] [address]Dr. Ashok Bailey RBC 3.38 106/ul Critically low 4.20-5.40 [facility] Comment on above: Performed By: #### H H ####[facility] [address] [place] [address]Dr. Ashok Bailey WBC 8.4 103/ul Normal 4.0-11.0 [facility] Comment on above: Performed By: #### H H ####[facility] [address] [place] [address]Dr. Ashok Bailey MAGNESIUMon 06-01-2022 Magnesium [Mass/Vol] 1.8 mg/dL Normal 1.8-2.4 [facility] Comment on above: Performed By: #### C MP, URIC, MG, PHOS ####[facility] [address] [place] [address]Dr. Ashok Bailey PHOSPHORUSon 06-01-2022 Phosphate [Mass/Vol] 4.0 mg/dL Normal 2.6-4.7 [facility] Comment on above: Performed By: #### C MP, URIC, MG, PHOS ####[facility] Av[address] [place], [place] [address]Dr. Ashok Bailey PROF 14(COMP METB)on 023 Albumin [Mass/Vol] 3.8 g/dL Normal 3.4-5.0 [facility] Comment on above: Performed By: #### C MP, URIC, MG, PHOS ####[facility] Ar[address] [place], [place] [address]Dr. Ashok Bailey Albumin/Globulin [Mass ratio] 1.1 {ratio} Normal [facility] Comment on above: Performed By: #### C MP, URIC, MG, PHOS ####[facility] [address] [place] [address]Dr. Ashok Bailey ALP [Catalytic activity/Vol] 96 U/L Normal 46-116 [facility] Comment on above: Performed By: #### C MP, URIC, MG, PHOS ####[facility] [address]omsnqu[address] [place] [address]Dr. Ashok Bailey ALT [Catalytic activity/Vol] 17 U/L Normal 14-59 [facility] Comment on above: Performed By: #### C MP, URIC, MG, PHOS ####[facility] [address] [place] [address]Dr. Ashok Bailey Anion gap [Moles/Vol] 15.4 mmol/L Normal [facility] Comment on above: Performed By: #### C MP, URIC, MG, PHOS ####[facility] [address]rx[address] [place] [address]Dr. Ashok Bailey AST [Catalytic activity/Vol] 15 U/L Normal 15-37 [facility] Comment on above: Performed By: #### C MP, URIC, MG, PHOS ####[facility] [address]piz[address] [place] [address]Dr. Ashok Bailey Bilirubin [Mass/Vol] 0.3 mg/dL Normal 0.2-1.0 [facility] Comment on above: Performed By: #### C MP, URIC, MG, PHOS ####[facility] [address] [place], [place] [address]Dr. Ashok Bailey Calcium [Mass/Vol] 9.1 mg/dL Normal 8.5-10.1 [facility] Comment on above: Performed By: #### C MP, URIC, MG, PHOS ####[facility] J[address]ab[address] [place], [place] [address]Dr. Ashok Bailey Chloride [Moles/Vol] 103 mmol/L Normal 98-107 [facility] Comment on above: Performed By: #### C MP, URIC, MG, PHOS ####[facility] [address] [place], [place] [address]Dr. Ashok Bailey CO2 [Moles/Vol] 24.9 mmol/L Normal 21.0-32.0 [facility] Comment on above: Performed By: #### C MP, URIC, MG, PHOS ####[facility] [address] [place], [place] [address]Dr. Ashok Bailey Creatinine [Mass/Vol] 1.35 mg/dL Critically high 0.55-1.02 [facility] Comment on above: Performed By: #### C MP, URIC, MG, PHOS ####[facility] [address] [place], [place] [address]Dr. Ashok Bailey EGFR-AF BELIZEAN 46 mL/min/1.73m2 Critically low >=60 [facility] Comment on above: Performed By: #### C MP, URIC, MG, PHOS ####[facility] [address]xx[address]hoxv[address] [place] [address]Dr. Ashok Bailey EGFR-NON AF BELIZEAN 38 mL/min/1.73m2 Critically low >=60 [facility] Comment on above: Performed By: #### C MP, URIC, MG, PHOS ####[facility] L[address]bukx[address] [place] [address]Dr. Ashok Bailey Globulin (S) [Mass/Vol] 3.4 g/dL Normal [facility] Comment on above: Performed By: #### C MP, URIC, MG, PHOS ####[facility] Kw[address] [place], [place] [address]Dr. Ashok Bailey Glucose [Mass/Vol] 86 mg/dL Normal 74-106 [facility] Comment on above: Performed By: #### C MP, URIC, MG, PHOS ####[facility] [address] [place], [place] [address]Dr. Ashok Bailey Potassium [Moles/Vol] 4.3 mmol/L Normal 3.5-5.1 [facility] Comment on above: Performed By: #### C MP, URIC, MG, PHOS ####[facility] [address] [place], [place] [address]Dr. Ashok Bailey Protein [Mass/Vol] 7.2 g/dL Normal 6.4-8.2 [facility] Comment on above: Performed By: #### C MP, URIC, MG, PHOS ####[facility] I[address] [place], [place] [address]Dr. Ashok Bailey Sodium [Moles/Vol] 139 mmol/L Normal 136-145 [facility] Comment on above: Performed By: #### C MP, URIC, MG, PHOS ####[facility] [address] [place], [place] [address]Dr. Ashok Bailey Urea nitrogen [Mass/Vol] 20.0 mg/dL Critically high 7.0-18 .0 [facility] Comment on above: Performed By: #### C MP, URIC, MG, PHOS ####[facility] [address] [place] [address]Dr. Ashok Bailey Urea nitrogen/Creatinine [Ma ss ratio] 14.8 mg/mg Normal [facility] Comment on above: Performed By: #### C MP, URIC, MG, PHOS ####[facility] [address]kul[address]abe[address] [place] [address]Dr. Ashok Bailey UA RANDOMon 06-01-2022 Bilirubin Ql (U) Negative Normal NEGATIVE [facility] Comment on above: Performed By: #### U A #### [facility] [address] [place] [address] [address] Ashok Bialey Clarity (U) CLEAR Normal CLEAR [facility] Comment on above: Performed By: #### U A #### [facility] [address] [place] [address] Dr. Ashok Bailey Color (U) LT. YELLOW Normal YELLOW [facility] Comment on above: Performed By: #### U A #### [facility] [address] [place] [address] [address] Ashok Bailey Glucose Ql (U) Negative Normal NEGATIVE [facility] Comment on above: Performed By: #### U A #### [facility] [address] [place] [address] Dr. Ashok Bailey Hemoglobin Ql (U) Negative Normal NEGATIVE [facility] Comment on above: Performed By: #### U A #### [facility] [address] [place] [address] [address] Ashok Bailey Ketones Ql (U) Negative Normal NEGATIVE [facility] Comment on above: Performed By: #### U A #### [facility] [address] [place] [address] Dr. Ashok Bailey LEUKOCYTES Negative Normal NEGATIVE [facility] Comment on above: Performed By: #### U A #### [facility] [address] [place] [address] Dr. Ashok Bailey Nitrite Ql (U) Negative Normal NEGATIVE [facility] Comment on above: Performed By: #### U A #### [facility] [address] [place] [address] Dr. Ashok Bailey pH (U) 6.0 [pH] Normal 5-9 [facility] Comment on above: Performed By: #### U A #### [facility] [address] [place] [address] [address] Ashok Bailey SPEC GRAVITY 1.010 Normal 1.005-<=1. 025 [facility] Comment on above: Performed By: #### U A #### [facility] [address] [place] [address] [address] Ashok Bailey UA PROTEIN Negative Normal NEGATIVE/ TRACE [facility] Comment on above: Performed By: #### U A #### [facility] [address] [place] [address] [address] Ashok Bailey Urobilinogen Qn (U) 0.2 {Drew'U}/dL Normal 0.2 - 1.0 [facility] Comment on above: Performed By: #### U A #### [facility] [address] [place] [address] Dr. Ashok Bailey URIC ACID SERUMon 06-01-2022 Urate [Mass/Vol] 3.9 mg/dL Normal 2.6-6.0 [facility] Comment on above: Performed By: #### C MP, URIC, MG, PHOS ####[facility] [address] [place] [address]Dr. Ashok Bailey URINE T PROTEIN CREAT RATIOo n 06-01-2022 Protein (U) [Mass/Vol] 14.0 mg/dL Critically high <=12.0 [facility] Comment on above: Performed By: #### U RTPCR #### [facility] [address] [place] [address] [address] Ashok Bailey UR PROT CREAT RAT 0.28 Normal [facility] Comment on above: Performed By: #### U RTPCR #### [facility] [address] [place] [address] Dr. Ashok Bailey URINE CREAT 50.47 mg/dL Normal 20.00-300. 00 [facility] Comment on above: Performed By: #### U RTPCR #### [facility] [address] [place], [place] [address] Dr. Ashok Bailey VITAMIN D 25 OHon 06-01-2022 VIT D 25-OH 19.2 ng/mL Normal [facility] Comment on above: Performed By: #### F T4 #### [facility] [address] [place], [place] [address] Dr. Ashok Bailey VIT D RANGES SEE BELOW Normal [facility] Comment on above: Result Comment: <20 ng/mL Vit D deficient 20 - <30 ng/mL Vit D insufficient 30 - 100 ng/mL Vit D sufficient >100 ng/mL Potential Toxicity Performed By: #### F T4 #### [facility] [address] [place], [place] [address] Dr. Ashok Bailey US KIDNEYSon 05-03-2022 US KIDNEYS US KIDNEYS EXAM DATE: 05/03/2022 7:10 AM MST COMPARISON: None available. INDICATION: Stage IV chronic kidney disease. TECHNIQUE: Real-time ultrasound scanning of the kidneys and bladder was performed by the securities settlement processor. [employer] static images are submitted for review. FINDINGS: [...] by: JOBY POLO Date: 2022-05-03 12:33 Normal [facility] FREE T4on 03-25-2022 Free T4 [Mass/Vol] 1.26 ng/dL Normal 0.76-1.46 [facility] Comment on above: Performed By: #### F T4 #### [facility] [address] [place], [place] [address] Dr. Ashok Bailey PROF CHEM 8 (BAS METB)on Anion gap [Moles/Vol] 17.6 mmol/L Normal [facility] Comment on above: Performed By: #### B MP, TSH ####[facility] [address] [place] [id number]. Ashok Bailey Calcium [Mass/Vol] 8.9 mg/dL Normal 8.5-10.1 [facility] Comment on above: Performed By: #### B MP, TSH ####[facility] [address] [place] [address]Dr. Ashok Bailey Chloride [Moles/Vol] 97 mmol/L Critically low 98-107 [facility] Comment on above: Performed By: #### B MP, TSH ####[facility] [address]rav[address] [place] [address]Dr. Ashok Bailey CO2 [Moles/Vol] 22.2 mmol/L Normal 21.0-32.0 [facility] Comment on above: Performed By: #### B MP, TSH ####[facility] [address] [place] [address]Dr. Ashok Bailey Creatinine [Mass/Vol] 2.42 mg/dL Critically high 0.55-1.02 [facility] Comment on above: Performed By: #### B MP, TSH ####[facility] [address] [place] [address]Dr. Ashok Bailey EGFR-AF BELIZEAN 24 mL/min/1.73m2 Critically low >=60 [facility] Comment on above: Performed By: #### B MP, TSH ####[facility] [address] [place] [address]Dr. Ashok Bailey EGFR-NON AF BELIZEAN 20 mL/min/1.73m2 Critically low >=60 [facility] Comment on above: Performed By: #### B MP, TSH ####[facility] [address] [place] [address]Dr. Ashok Bailey Glucose [Mass/Vol] 84 mg/dL Normal 74-106 [facility] Comment on above: Performed By: #### B MP, TSH ####[facility] [address] [place] [address]Dr. Ashok Bailey Potassium [Moles/Vol] 4.8 mmol/L Normal 3.5-5.1 [facility] Comment on above: Performed By: #### B MP, TSH ####[facility] [address] [place] [address]Dr. Ashok Bailey Sodium [Moles/Vol] 132 mmol/L Critically low 136-145 [facility] Comment on above: Performed By: #### B MP, TSH ####[facility] [address] [place], [place] [address]Dr. Ashok Bailey Urea nitrogen [Mass/Vol] 43.0 mg/dL Critically high 7.0-18 .0 [facility] Comment on above: Performed By: #### B MP, TSH ####[facility] [id number] [place], [place] [address]Dr. Ashok Bailey Urea nitrogen/Creatinine [Ma ss ratio] 17.8 mg/mg Normal [facility] Comment on above: Performed By: #### B MP, TSH ####[facility] [id number] [address]Dr. Ashok Bailey TSHon 03-25-2022 TSH 2.368 uIU/mL Normal 0.358-3.74 0 [facility] Comment on above: Performed By: #### B MP, TSH ####[facility] [id number] [address]Dr. Ashok Bailey CPKon 11-12-2021 CK [Catalytic activity/Vol] 207 U/L Critically high 26- 192 [facility] Comment on above: Performed By: #### C MP, CK, TSH, LIPID #### [facility] [address] [address] [address] Ashok Bailey FREE T4on 11-12-2021 Free T4 [Mass/Vol] 1.16 ng/dL Normal 0.76-1.46 [facility] Comment on above: Performed By: #### F T4 #### [facility] [address] [address] [address] Ashok Bailey LIPID PROFILEon 11-12-2021 CHOL-HDL RATIO NORM SEE BELOW Normal [facility] Comment on above: Result Comment: 3.3 - 4.4 LOW RISK 4.4 - 7.1 AVERAGE RISK 7.1 - 11.0 MODERATE RISK >11.0 HIGH RISK Performed By: #### C MP, CK, TSH, LIPID #### [facility] [address] [place] [address] Dr. Ashok Bailey Cholesterol [Mass/Vol] 215 mg/dL Critically high <=200 [facility] Comment on above: Performed By: #### C MP, CK, TSH, LIPID #### [facility] [address] [place] [address] Dr. Ashok Bailey Cholesterol in HDL [Mass/Vol] 74 mg/dL Critically high 4 0-60 [facility] Comment on above: Performed By: #### C MP, CK, TSH, LIPID #### [facility] [address] [place] [address] Dr. Ashok Bailey Cholesterol in LDL [Mass/Vol] 114.4 mg/dL Normal [facility] Comment on above: Performed By: #### C MP, CK, TSH, LIPID #### [facility] [address] [place] [address] Dr. Ashok Bailey Cholesterol.total/Cholestero l in HDL [Mass ratio] 2.9 {ratio} Normal [facility] Comment on above: Performed By: #### C MP, CK, TSH, LIPID #### [facility] [address] [place] [address] Dr. Ashok Bailey HDL NORMAL > or = 60 mg/dl - LOW CARDIOVASCULAR RISK <40 mg/dl - HIGH CARDIOVASCULAR RISK Normal [facility] Comment on above: Performed By: #### C MP, CK, TSH, LIPID #### [facility] [address] [address] [address] Ashok Bailey LDL CALC NORMAL SEE BELOW Normal [facility] Comment on above: Result Comment: <100 mg/dl OPTIMAL 100 - 129 mg/dl NEAR OR ABOVE OPTIMAL 130 - 159 mg/dl BORDERLINE HIGH 160 - 189 mg/dl HIGH >190 mg/dl VERY HIGH Performed By: #### C MP, CK, TSH, LIPID #### [facility] [address] [address] [address] Ashok Bailey Triglyceride [Mass/Vol] 133 mg/dL Normal <=150 [facility] Comment on above: Performed By: #### C MP, CK, TSH, LIPID #### [facility] [address] [address] [address] Ashok Bailey VLDL CALC 26.6 mg/dL Normal [facility] Comment on above: Performed By: #### C MP, CK, TSH, LIPID #### [facility] [address] [address] [address] Ashok Bailey PROF 14(COMP METB)on 022 Albumin [Mass/Vol] 3.9 g/dL Normal 3.4-5.0 [facility] Comment on above: Performed By: #### C MP, CK, TSH, LIPID #### [facility] [address] [place] [address] Dr. Ashok Bailey Albumin/Globulin [Mass ratio] 1.1 {ratio} Normal [facility] Comment on above: Performed By: #### C MP, CK, TSH, LIPID #### [facility] [address] [address] [address] Ashok Bailey ALP [Catalytic activity/Vol] 84 U/L Normal 46-116 [facility] Comment on above: Performed By: #### C MP, CK, TSH, LIPID #### [facility] [address] [address] [address] Ashok Bailey ALT [Catalytic activity/Vol] 18 U/L Normal 14-59 [facility] Comment on above: Performed By: #### C MP, CK, TSH, LIPID #### [facility] [address] [address] [address] Ashok Bailey Anion gap [Moles/Vol] 15.1 mmol/L Normal [facility] Comment on above: Performed By: #### C MP, CK, TSH, LIPID #### [facility] [address] [address] [address] Ashok Bailey AST [Catalytic activity/Vol] 11 U/L Critically low 15- 37 [facility] Comment on above: Performed By: #### C MP, CK, TSH, LIPID #### [facility] [address] [address] [address] Ashok Bailey Bilirubin [Mass/Vol] 0.3 mg/dL Normal 0.2-1.0 [facility] Comment on above: Performed By: #### C MP, CK, TSH, LIPID #### [facility] [address] [place] [address] Dr. Ashok Bailey Calcium [Mass/Vol] 9.3 mg/dL Normal 8.5-10.1 [facility] Comment on above: Performed By: #### C MP, CK, TSH, LIPID #### [facility] [address] [address] [address] Ashok Bailey Chloride [Moles/Vol] 101 mmol/L Normal 98-107 [facility] Comment on above: Performed By: #### C MP, CK, TSH, LIPID #### [facility] [address] [address] [address] Ashok Bailey CO2 [Moles/Vol] 22.9 mmol/L Normal 21.0-32.0 [facility] Comment on above: Performed By: #### C MP, CK, TSH, LIPID #### [facility] [address] [place] [address] Dr. Ashok Bailey Creatinine [Mass/Vol] 1.67 mg/dL Critically high 0.55-1.02 [facility] Comment on above: Performed By: #### C MP, CK, TSH, LIPID #### [facility] [address] [place] [address] Dr. Ashok Bailey EGFR-AF BELIZEAN 36 mL/min/1.73m2 Critically low >=60 [facility] Comment on above: Performed By: #### C MP, CK, TSH, LIPID #### [facility] [address] [address] [address] Ashok Bailey EGFR-NON AF BELIZEAN 30 mL/min/1.73m2 Critically low >=60 [facility] Comment on above: Performed By: #### C MP, CK, TSH, LIPID #### [facility] [address] [address] [address] Ashok Bailey Globulin (S) [Mass/Vol] 3.5 g/dL Normal T [facility] Comment on above: Performed By: #### C MP, CK, TSH, LIPID #### [facility] [address] [place] [address] Dr. Ashok Bailey Glucose [Mass/Vol] 96 mg/dL Normal 74-106 [facility] Comment on above: Performed By: #### C MP, CK, TSH, LIPID #### [facility] [address] [place] [address] Dr. Ashok Bailey Potassium [Moles/Vol] 5.0 mmol/L Normal 3.5-5.1 [facility] Comment on above: Performed By: #### C MP, CK, TSH, LIPID #### [facility] [address] [place] [address] Dr. Ashok Bailey Protein [Mass/Vol] 7.4 g/dL Normal 6.4-8.2 [facility] Comment on above: Performed By: #### C MP, CK, TSH, LIPID #### [facility] [address] [place] [address] Dr. Ashok Bailey Sodium [Moles/Vol] 134 mmol/L Critically low 136-145 [facility] Comment on above: Performed By: #### C MP, CK, TSH, LIPID #### [facility] [address] [place] [address] Dr. Ashok Bailey Urea nitrogen [Mass/Vol] 27.0 mg/dL Critically high 7.0-18 .0 [facility] Comment on above: Performed By: #### C MP, CK, TSH, LIPID #### [facility] [address] [place], [place] [address] Dr. Ashok Bailey Urea nitrogen/Creatinine [Ma ss ratio] 16.2 mg/mg Normal [facility] Comment on above: Performed By: #### C MP, CK, TSH, LIPID #### [facility] [address] [address] [address] Ashok Bailey TSHon 11-12-2021 TSH 3.073 uIU/mL Normal 0.358-3.74 0 [facility] Comment on above: Performed By: #### C MP, CK, TSH, LIPID #### [facility] [address] [address] [address] Ashok Bailey COMPREHENSIVE METABOLIC PANE [facility] 05-30-2021 Albumin [Mass/Vol] 4.7 g/dL Normal 3.6-5.1 [facility] Comment on above: Performed By: #### 7 600, 19844 #### [facility] [address] [place] [address] [employer]: Austin Tobin MD Albumin/Globulin [Mass ratio] 1.8 {ratio} Normal 1.0-2 .5 [facility] Comment on above: Performed By: #### 7 600, 69656 #### [facility] [place] [address] [employer]: Austin Tobin MD ALP [Catalytic activity/Vol] 84 U/L Normal 37-153 [facility] Comment on above: Performed By: #### 7 600, 18522 #### [facility] [address] [place] [address] [employer]: Austin Tobin MD ALT [Catalytic activity/Vol] 13 U/L Normal 6-29 [facility] Comment on above: Performed By: #### 7 600, 20674 #### [facility] [address] [place] [address] [employer]: Austin Tobin MD AST [Catalytic activity/Vol] 12 U/L Normal 10-35 [facility] Comment on above: Performed By: #### 7 600, 45063 #### [facility] of [address] [place] [address] [employer]: Austin Tobin MD Bilirubin [Mass/Vol] 0.3 mg/dL Normal 0.2-1.2 [facility] Comment on above: Performed By: #### 7 600, 60417 #### [facility] of [address] [place] [address] [employer]: Austin Tobin MD BUN/CREATININE RATIO NOT APPLICABLE Normal 6-22 [facility] Comment on above: Performed By: #### 7 600, 91364 #### [facility] [place] [address] [employer]: Austin Tobin MD Calcium [Mass/Vol] 10.2 mg/dL Normal 8.6-10.4 [facility] Comment on above: Performed By: #### 7 600, 07467 #### [facility] of [address] [place] [address] [employer]: Austin Tobin MD Chloride [Moles/Vol] 99 mmol/L Normal 98-110 [facility] Comment on above: Performed By: #### 7 600, 82806 #### [facility] [place] [address] [employer]: Austin Tobin MD CO2 [Moles/Vol] 29 mmol/L Normal 20-32 [facility] Comment on above: Performed By: #### 7 600, 93366 #### [facility] of [address] [place] [address] [employer]: Austin Tobin MD Creatinine [Mass/Vol] 0.71 mg/dL Normal 0.60-0.[address] [facility] Comment on above: Result Comment: For patients >49 years of age, the reference limit for Creatinine is approximately 13% higher for people identified as -Burmese. Performed By: #### 7 600, 08958 #### [facility] of [address] [place] [address] [employer]: Austin Tobin MD eGFR NON-AFR. BELIZEAN 84 mL/min/1.73m2 Normal > OR = 60 [facility] Comment on above: Performed By: #### 7 600, 69213 #### [facility] of [address], [address] [place] [address] [employer]: Austin Tobin MD GFR/1.73 sq M.predicted rosa m g blacks MDRD (S/P/Bld) [Vol rate/Area] 97 mL/min/{1.73_m2} Normal > OR = 60 [facility] Comment on above: Performed By: #### 7 600, 39971 #### [facility] of [address] [place] [address] [employer]: Austin Tobin MD Globulin (S) [Mass/Vol] 2.6 g/dL Normal 1.9-3.7 [facility] Comment on above: Performed By: #### 7 600, 03546 #### [facility] of [address], [address] [place] [address] [employer]: Austin Tobin MD Glucose [Mass/Vol] 86 mg/dL Normal 65-99 [facility] Comment on above: Result Comment: Fasting reference interval Performed By: #### 7 600, 42413 #### [facility] of [address], [address] [place] [address] [employer]: Austin Tobin MD Potassium [Moles/Vol] 4.4 mmol/L Normal 3.5-5.[address] [facility] Comment on above: Performed By: #### 7 600, 05457 #### [facility] of [address] [place] [address] [employer]: Austin Tobin MD Protein [Mass/Vol] 7.3 g/dL Normal 6.1-8.1 [facility] Comment on above: Performed By: #### 7 600, 64006 #### [facility] of [address], [address] [place] [address] [employer]: Austin Tobin MD Sodium [Moles/Vol] 135 mmol/L Normal 135-146 [facility] Comment on above: Performed By: #### 7 600, 67745 #### [facility] [address], [address] [place] [address] [employer]: Austin Tobin MD Urea nitrogen [Mass/Vol] 10 mg/dL Normal 7-25 [facility] Comment on above: Performed By: #### 7 600, 17504 #### [facility] [address], [address] [place] [address] [employer]: Austin Tobin MD LIPID PANEL, [facility] 05-05 Cholesterol [Mass/Vol] 214 mg/dL High <200 [facility] Comment on above: Performed By: #### 7 600, 42144 #### [facility] [address], [address] [place] [address] [employer]: Austin Tobin MD Cholesterol in HDL [Mass/Vol] 85 mg/dL Normal > OR = 50 [facility] Comment on above: Performed By: #### 7 600, 22620 #### [facility] [address], [address] [place] [address] [employer]: Austin Tobin MD Cholesterol in LDL [Mass/Vol] [...] LDL-C. Jordan SS et al. JAUN. 2013;310(19): 5218-4472 (http://education.SystemsNet.SolarReserve/faq/IBG876) Performed By: #### 7 600, 42034 #### [facility] [address], [address] [place] [address] [employer]: Austin Tobin MD Cholesterol.total/Cholestero l in HDL [Mass ratio] 2.5 {ratio} Normal <5.0 [facility] Comment on above: Performed By: #### 7 600, 31493 #### [facility] [place] [address] [employer]: Austin Tobin MD NON HDL CHOLESTEROL 129 mg/dL (calc) Normal <130 [facility] Comment on above: Result Comment: For patients with diabetes plus 1 major ASCVD risk factor, treating to a non-HDL-C goal of <100 mg/dL (LDL-C of <70 mg/dL) is considered a therapeutic option. Performed By: #### 7 600, 03501 #### [facility] [place] [address] [employer]: Austin Tobin MD Triglyceride [Mass/Vol] 113 mg/dL Normal <150 [facility] Comment on above: Performed By: #### 7 600, 48552 #### [facility] [place] [address] [employer]: Austin Tobin MD COMPREHENSIVE METABOLIC PANE [facility] 05-04-2021 Albumin [Mass/Vol] 4.3 g/dL Normal 3.6-5.1 [facility] Comment on above: Performed By: #### 7 600, 75503 #### [facility] [place] [address] [employer]: Austin Tobin MD Albumin/Globulin [Mass ratio] 1.8 {ratio} Normal 1.0-2 .5 [facility] Comment on above: Performed By: #### 7 600, 92697 #### [facility] [place] [address] [employer]: Austin Tobin MD ALP [Catalytic activity/Vol] 82 U/L Normal 37-153 [facility] Comment on above: Performed By: #### 7 600, 34091 #### [facility] [place] [address] [employer]: Austin Tobin MD ALT [Catalytic activity/Vol] 11 U/L Normal 6-29 [facility] Comment on above: Performed By: #### 7 600, 69709 #### [facility] of [address], [address] [place] [address] [employer]: Austin Tobin MD AST [Catalytic activity/Vol] 12 U/L Normal 10-35 [facility] Comment on above: Performed By: #### 7 600, 90954 #### [facility] of [address], [address] [place] [address] [employer]: Austin Tobin MD Bilirubin [Mass/Vol] 0.4 mg/dL Normal 0.2-1.2 [facility] Comment on above: Performed By: #### 7 600, 82096 #### [facility] of [place] [address] [employer]: Austin Tobin MD BUN/CREATININE RATIO NOT APPLICABLE Normal 6-22 [facility] Comment on above: Performed By: #### 7 600, 85290 #### [facility] of [address], [address] [place] [address] [employer]: Austin Tobin MD Calcium [Mass/Vol] 9.4 mg/dL Normal 8.6-10.4 [facility] Comment on above: Performed By: #### 7 600, 60509 #### [facility] of [place] [address] [employer]: Austin Tobin MD Chloride [Moles/Vol] 98 mmol/L Normal 98-110 [facility] Comment on above: Performed By: #### 7 600, 20183 #### [facility] of [place] [address] [employer]: Austin Tobin MD CO2 [Moles/Vol] 28 mmol/L Normal 20-32 [facility] Comment on above: Performed By: #### 7 600, 33294 #### [facility] of [address], [address] [place] [address] [employer]: Austin Tobin MD Creatinine [Mass/Vol] 0.73 mg/dL Normal 0.60-0.[address] [facility] Comment on above: Result Comment: For patients >49 years of age, the reference limit for Creatinine is approximately 13% higher for people identified as -Burmese. Performed By: #### 7 600, 96607 #### [facility] [address], [address] [place] [address] [employer]: Austin Tobin MD eGFR NON-AFR. BELIZEAN 82 mL/min/1.73m2 Normal > OR = 60 [facility] Comment on above: Performed By: #### 7 600, 86785 #### [facility] [address], [address] [place] [address] [employer]: Austin Tobin MD GFR/1.73 sq M.predicted rosa m g blacks MDRD (S/P/Bld) [Vol rate/Area] 95 mL/min/{1.73_m2} Normal > OR = 60 [facility] Comment on above: Performed By: #### 7 600, 56062 #### [facility] [address], [address] [place] [address] [employer]: Austin Tobin MD Globulin (S) [Mass/Vol] 2.4 g/dL Normal 1.9-3.7 [facility] Comment on above: Performed By: #### 7 600, 71457 #### [facility] [address], [address] [place] [address] [employer]: Austin Tobin MD Glucose [Mass/Vol] 102 mg/dL Normal 65-139 [facility] Comment on above: Result Comment: Non-fasting reference interval For someone without known diabetes, a glucose value between 100 and 125 mg/dL is consistent with prediabetes and should be confirmed with a follow-up test. Performed By: #### 7 600, 24269 #### [facility] [address], [address] [place] [address] [employer]: Austin Tobin MD Potassium [Moles/Vol] 4.3 mmol/L Normal 3.5-5.[address] [facility] Comment on above: Performed By: #### 7 600, 89040 #### [facility] of [address], [address] [place] [address] [employer]: Austin Tobin MD Protein [Mass/Vol] 6.7 g/dL Normal 6.1-8.1 [facility] Comment on above: Performed By: #### 7 600, 16760 #### [facility] [address], [address] [place] [address] [employer]: Austin Tobin MD Sodium [Moles/Vol] 132 mmol/L Low 135-146 [facility] Comment on above: Performed By: #### 7 600, 44366 #### [facility] of [place] [address] [employer]: Austin Tobin MD Urea nitrogen [Mass/Vol] 12 mg/dL Normal 7-25 [facility] Comment on above: Performed By: #### 7 600, 43926 #### [facility] [place] [address] [employer]: Austin Tobin MD LIPID PANEL, [facility] 0 Cholesterol [Mass/Vol] 168 mg/dL Normal <200 [facility] Comment on above: Order Comment: FASTI NG:NO FASTING: NO Performed By: #### 7 600, 52134 #### [facility] [place] [address] [employer]: Austin Tobin MD Cholesterol in HDL [Mass/Vol] 79 mg/dL Normal > OR = 50 [facility] Comment on above: Order Comment: FASTI NG:NO FASTING: NO Performed By: #### 7 600, 91370 #### [facility] [place] [address] [employer]: Austin Tobin MD Cholesterol in LDL [Mass/Vol] [...] LDL-C. Jordan HOU et al. JAUN. 2013;310(19): 2945-3812 (http://education.SystemsNet.SolarReserve/faq/AWI519) Performed By: #### 7 600, 21612 #### [facility] [address], [address] [place] [address] [employer]: Austin Tobin MD Cholesterol.total/Cholestero l in HDL [Mass ratio] 2.1 {ratio} Normal <5.0 [facility] Comment on above: Order Comment: FASTI NG:NO FASTING: NO Performed By: #### 7 600, 48980 #### [facility] [address], [address] [place] [address] [employer]: Austin Tobin MD NON HDL CHOLESTEROL 89 mg/dL (calc) Normal <130 [facility] Comment on above: Order Comment: FASTI NG:NO FASTING: NO Result Comment: For patients with diabetes plus 1 major ASCVD risk factor, treating to a non-HDL-C goal of <100 mg/dL (LDL-C of <70 mg/dL) is considered a therapeutic option. Performed By: #### 7 600, 68080 #### [facility] [address], [address] [place] [address] [employer]: Austin Tobin MD Triglyceride [Mass/Vol] 79 mg/dL Normal <150 [facility] Comment on above: Order Comment: FASTI NG:NO FASTING: NO Performed By: #### 7 600, 43773 #### [facility] [address], [address] [place] [address] [employer]: Austin Tobin MD Vital Signs Date Time Vital Sign Value Performing Clinician Facility 03-12-2024 16:12-0500 Body height 157.5 cm Carsonandrew Biggskye DO Work Phone: [facility] 03-12-2024 16:12-0500 Body mass index (BMI) [Ratio] 27.4 kg/m2 Carson Furlong DO Work Phone: [facility] 03-12-2024 16:12-0500 Body temperature 97.9 [degF] Carson Furlong DO Work Phone: [facility] 03-12-2024 16:12-0500 Body weight 67.95 kg Carson Furlong DO Work Phone: [facility] 03-12-2024 16:12-0500 Diastolic blood pressure 60 mm[Hg] Carson Furlong DO Work Phone: [facility] 03-12-2024 16:12-0500 Heart rate 88 /min Carson Furlong DO Work Phone: [facility] 03-12-2024 16:12-0500 Respiratory rate 18 /min Carson Furlong DO Work Phone: [facility] 03-12-2024 16:12-0500 SaO2% (BldA) [Mass fraction] 95 % Carson Furlong DO Work Phone: [facility] 03-12-2024 16:12-0500 Systolic blood pressure 110 mm[Hg] Carson Furlong DO Work Phone: [facility] 10-24-2023 10:52-0400 Body height 160.02 cm [facility] 10-24-2023 10:52-0400 Body mass index (BMI) [Ratio] 24.5 kg/m2 [facility] 10-24-2023 10:52-0400 Body temperature 97.8 [degF] [facility] 10-24-2023 10:52-0400 Body weight 62.76 kg [facility] 10-24-2023 10:52-0400 Diastolic blood pressure 67 mm[Hg] [facility] 10-24-2023 10:52-0400 Heart rate 80 /min [facility] 10-24-2023 10:52-0400 Respiratory rate 18 /min [facility] 10-24-2023 10:52-0400 SaO2% (BldA) [Mass fraction] 99 % [facility] 10-24-2023 10:52-0400 Systolic blood pressure 126 mm[Hg] [facility] 10-10-2023 10:37-0400 Body height 157.5 cm Carson Furlong DO Work Phone: [facility] 10-10-2023 10:37-0400 Body mass index (BMI) [Ratio] 26.14 kg/m2 Carson Furlong DO Work Phone: [facility] 10-10-2023 10:37-0400 Body weight 64.82 kg Carson Furlong DO Work Phone: [facility] 10-10-2023 10:37-0400 Diastolic blood pressure 68 mm[Hg] Carson Furlong DO Work Phone: [facility] 10-10-2023 10:37-0400 Systolic blood pressure 137 mm[Hg] Carson Furlong DO Work Phone: [facility] 09-26-2023 13:39-0400 Body height 160 cm Carson Furlong DO Work Phone: [facility] 09-26-2023 13:39-0400 Body mass index (BMI) [Ratio] 25.3 kg/m2 Carson Furlong DO Work Phone: [facility] 09-26-2023 13:39-0400 Body temperature 97.9 [degF] Carson Furlong DO Work Phone: [facility] 09-26-2023 13:39-0400 Body weight 64.77 kg Carson Furlong DO Work Phone: [facility] 09-26-2023 13:39-0400 Diastolic blood pressure 40 mm[Hg] Carson Furlong DO Work Phone: [facility] [employer] [facility] 09-26-2023 13:39-0400 Heart rate 81 /min Carson Furlong DO Work Phone: [facility] [employer] [facility] 09-26-2023 13:39-0400 Respiratory rate 18 /min Carson Furlong DO Work Phone: [facility] 09-26-2023 13:39-0400 SaO2% (BldA) [Mass fraction] 99 % Carson Furlong DO Work Phone: [facility] [employer] [facility] 09-26-2023 13:39-0400 Systolic blood pressure 100 mm[Hg] Carson Furlong DO Work Phone: [facility] [employer] [facility] 06-28-2023 11:33-0400 Body height 160 cm Carson Furlong DO Work Phone: [facility] [employer] [facility] 06-28-2023 11:33-0400 Body mass index (BMI) [Ratio] 25.35 kg/m2 Carson Furlong DO Work Phone: [facility] [employer] 06-28-2023 11:33-0400 Body temperature 97.5 [degF] Carson Furlong DO Work Phone: [facility] [employer] [facility] 06-28-2023 11:33-0400 Body weight 64.91 kg Carson Furlong DO Work Phone: [facility] [employer] [facility] 06-28-2023 11:33-0400 Diastolic blood pressure 78 mm[Hg] Carson Furlong DO Work Phone: [facility] [employer] [facility] 06-28-2023 11:33-0400 Heart rate 97 /min Carson Furlong DO Work Phone: [facility] [employer] [facility] 06-28-2023 11:33-0400 Respiratory rate 24 /min Carson Furlong DO Work Phone: [facility] 06-28-2023 11:33-0400 SaO2% (BldA) [Mass fraction] 100 % Carson Sullivan DO Work [facility]: [facility] 06-28-2023 11:33-0400 Systolic blood pressure 134 mm[Hg] Carson Sullivan DO Work Phone: [email or web address] 03-30-2023 08:33-0500 Body height 160 cm Lian Dan [employer]INE[employer] Work Phone: [facility] [employer] 03-30-2023 08:33-0500 Body mass index (BMI) [Ratio] 24.66 kg/m2 Lianles Dan [employer] ENGINEER Work Phone: [email or web address] 03-30-2023 08:33-0500 Body temperature 97.9 [degF] Lian Dan [employer]INEER Work Phone: [email or web address] 03-30-2023 08:33-0500 Body weight 63.14 kg Lian Dan [employer] ENGINEER Work Phone: [email or web address] 03-30-2023 08:33-0500 Diastolic blood pressure 58 mm[Hg] Lian Dan [employer] ENGINEER Work Phone: [email or web address] 03-30-2023 08:33-0500 Heart rate 78 /min Lian Dan [employer] Work Phone: [email or web address] 03-30-2023 08:33-0500 SaO2% (BldA) [Mass fraction] 100 % Lianles Dan [employer]INEER Work Phone: [email or web address] 03-30-2023 08:33-0500 Systolic blood pressure 118 mm[Hg] Lian Ni [employer] ENGINEER Work Phone: [email or web address] 03-28-2023 11:20-0500 Body height 160.02 cm Bri Alonso Other [facility] Other 03-28-2023 11:20-0500 Body mass index (BMI) [Ratio] 24.83 kg/m2 Aziz Bakhous Other [employer] Other 03-28-2023 11:20-0500 Body temperature 96.9 [degF] Aziz Bakhous Other [facility] Other 03-28-2023 11:20-0500 Body weight 63.59 kg Aziz Bakhous Other [facility] Other 03-28-2023 11:20-0500 Diastolic blood pressure 70 mm[Hg] Aziz Bakhous Other [facility] Other 03-28-2023 11:20-0500 Systolic blood pressure 138 mm[Hg] Aziz Bakhous Other [facility] Other 10-11-2022 14:20-0400 Body height 160.02 cm Aziz Bakhous Other [facility] Other 10-11-2022 14:20-0400 Body mass index (BMI) [Ratio] 24.8 kg/m2 Aziz Bakhous Other [facility] Other 10-11-2022 14:20-0400 Body temperature 96.4 [degF] Aziz Bakhous Other [facility] Other 10-11-2022 14:20-0400 Body weight 63.5 kg Aziz Bakhous Other [facility] Other 10-11-2022 14:20-0400 Diastolic blood pressure 60 mm[Hg] Aziz Bakhous Other [facility] Other 10-11-2022 14:20-0400 Respiratory rate 18 /min Aziz Bakhous Other [facility] Other 10-11-2022 14:20-0400 Systolic blood pressure 130 mm[Hg] Aziz Bakhous Other [facility] Other 06-07-2022 10:20-0400 Body height 160.02 cm Aziz Bakhous Other [facility] [employer] Other 06-07-2022 10:20-0400 Body mass index (BMI) [Ratio] 24.55 kg/m2 Aziz Bakhous Other [facility] Other 06-07-2022 10:20-0400 Body temperature 97.2 [degF] Aziz Bakhous Other [facility] Other 06-07-2022 10:20-0400 Body weight 62.87 kg Aziz Bakhous Other [facility] Other 06-07-2022 10:20-0400 Diastolic blood pressure 72 mm[Hg] Aziz Bakhous Other [facility] Other 06-07-2022 10:20-0400 Respiratory rate 18 /min Aziz Bakhous Other [facility] Other 06-07-2022 10:20-0400 SaO2% (BldA) [Mass fraction] 97 % Aziz Bakhous Other [facility] Other 06-07-2022 10:20-0400 Systolic blood pressure 130 mm[Hg] Aziz Bakhous Other [facility] Other 04-26-2022 09:40-0500 Body height Bri Fays Other [facility] Other 04-26-2022 09:40-0500 Body mass index (BMI) [Ratio] 24.97 kg/m2 Bri Fays Other [facility] Other 04-26-2022 09:40-0500 Body weight 63.96 kg Bri Fays Other [facility] Other 04-26-2022 09:40-0500 Diastolic blood pressure 84 mm[Hg] Bri Fays Other [facility] Other 04-26-2022 09:40-0500 SaO2% (BldA) [Mass fraction] 98 % Bri Fays Other [facility] Other 04-26-2022 09:40-0500 Systolic blood pressure 150 mm[Hg] Bri Fays Other [facility] Other Encounters Encounter Date Encounter Type Care Provider Facility Start: 03-12-2024 End: 03-12-2024 Office outpatient visit 15 minutes Carsonandrew Biggstyroneconsuelo DO Work Phone: [facility] Comment on above: Post-herpetic polyne uropathy (Primary Dx) Start: 03-12-2024 End: 03-12-2024 ambulatory [facility] Start: 03-04-2024 End: 03-04-2024 Telephone encounter Carson Mustapha Biggskye DO [facility] Start: 02-29-2024 End: 02-29-2024 Orders Only Carson Sullivan DO Work Phone: [facility] Start: 02-22-2024 End: 02-22-2024 ambulatory [facility] Start: 01-31-2024 End: 01-31-2024 Refill Sandra Hernandez CMA [facility] Start: 01-03-2024 End: 01-03-2024 Refill Carson Sullivan DO Work Phone: [facility] Start: 01-01-2024 End: 01-01-2024 Refill Carson Sullivan DO Work Phone: [facility] Start: 12-28-2023 End: 12-28-2023 ambulatory [facility] Start: 12-25-2023 End: 12-25-2023 ambulatory Diamond Mooney MD Facility:[facility] Start: 10-24-2023 End: 10-24-2023 ambulatory [facility] Work Phone: Start: 10-24-2023 End: 10-24-2023 Patient encounter procedure [facility] Work Phone: Start: 10-17-2023 Non-patient / Non-visit [facility] Work Phone: Start: 10-16-2023 End: 10-16-2023 ambulatory Diamond Mooney MD Facility:[facility] Start: 10-10-2023 End: 10-10-2023 Patient encounter procedure Carson Sullivan DO Work Phone: [facility] Comment on above: Medicare annual well ness visit, subsequent (Primary Dx); Screening for depression Start: 10-10-2023 End: 10-11-2023 ambulatory [facility] Comment on above: Anxiety Start: 10-06-2023 End: 10-07-2023 Refill Carson Sulliavn DO Work Phone: [facility] Comment on above: Essential hypertensi on Start: 09-28-2023 End: 09-28-2023 Telephone encounter Carson Sullivan DO Work Phone: [facility] Start: 09-26-2023 End: 09-26-2023 Office outpatient visit 25 minutes Carson Sullivan DO Work Phone: [facility] Comment on above: 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 (Primary Dx); Postlaminectomy syndrome, not elsewhere classified; Tobacco dependence syndrome; Fibromyalgia Start: 09-26-2023 End: 09-26-2023 ambulatory [facility] Start: 09-16-2023 End: 09-16-2023 Refill Carson Sullivan DO Work Phone: [facility] Start: 09-10-2023 End: 09-10-2023 Refill Carson Sullivan DO Work Phone: [facility] Comment on above: Fibromyalgia Start: 08-31-2023 End: 08-31-2023 Orders Only Lian Dan [employer] ENGINEER Work Phone: [facility] Start: 08-24-2023 End: 08-31-2023 Refill Trixie Jeremy SCHEME TECHNICIAN [facility] Medicine Comment on above: Postlaminectomy synd colette, not elsewhere classified Start: 08-21-2023 End: 08-21-2023 Refill Carson Sullivan DO Work Phone: [facility] Start: 08-15-2023 End: 10-04-2023 Telephone encounter Carson Sullivan DO Work Phone: [facility] Start: 07-26-2023 End: 08-01-2023 Refill Trixie Jeremy [facility] Internal Medicine - Family Medicine Comment on above: Postlaminectomy synd colette, not elsewhere classified Start: 07-14-2023 End: 07-14-2023 ambulatory YULIA HERNÁNDEZ Not Available Start: 07-03-2023 End: 07-03-2023 Orders Only Carson Sullivan DO Work Phone: [facility] Comment on above: Postlaminectomy synd colette, not elsewhere classified (Primary Dx) Start: 06-30-2023 End: 06-30-2023 Telephone encounter Kim Diamond [facility] Medicine Comment on above: Preventative Screeni ng Start: 06-28-2023 End: 06-29-2023 ambulatory [facility] Start: 06-28-2023 End: 06-28-2023 Office outpatient visit 25 minutes Carson Sullivan DO Work Phone: [facility] Comment on above: 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 (CMS- HCC) (Primary Dx); Acquired hypothyroidism; Fibromyalgia; Anxiety; Postlaminectomy syndrome, not elsewhere classified; Sleep disturbance; Tobacco dependence syndrome; Spinal stenosis of lumbar region without neurogenic claudication; Hypokalemia; Hyperlipidemia, unspecified hyperlipidemia type Start: 06-28-2023 End: 06-28-2023 ambulatory [facility] Start: 06-03-2023 Orders Only Carson cordero DO Work Phone: [facility] Comment on above: Special screening fo r malignant neoplasm of colon (Primary Dx) Start: 05-29-2023 Refill Farnaz Bennett [facility] Comment on above: 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 Start: 05-19-2023 End: 05-19-2023 ambulatory YULIA HERNÁNDEZ Not Available Start: 2023 End: 2023 ambulatory Aden Baca Facility:[facility] Start: 05-02-2023 Refill Trixie Jeremy SCHEME TECHNICIAN [facility] Comment on above: 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 Start: 04-29-2023 Refill Lian Dan [employer] ENGINEER Work Phone: [facility] Start: 04-28-2023 End: 04-28-[address] [facility] Start: 04-17-2023 Refill Trixie Jeremy SCHEME TECHNICIAN [facility] - Family [...] rimary Dx) Start: 03-31-2023 End: 04-01-2023 ambulatory [facility] Start: 03-30-2023 End: 03-30-2023 Office outpatient visit 15 minutes Lian Dan [employer] ENGINEER Work Phone: [facility] Comment on above: Chronic pain of both shoulders (Primary Dx); Peripheral vascular disease (CMS-HCC); Stage 3b chronic kidney disease ([facility]-HCC); Smoker; Lumbosacral spondylosis without myelopathy Start: 03-30-2023 End: 03-30-[address] [facility] Start: 03-28-2023 End: 03-28-2023 ambulatory Bri Alonso Other [facility] Other Start: 03-28-2023 Office outpatient vi sit 25 minutes Aziz Bakhous [facility] Start: 03-20-2023 Refill Carson Kohli ng DO Work Phone: [facility] Start: 03-10-2023 End: 03-10-2023 ambulatory YULIA HERNÁNDEZ Not Available Start: 03-07-2023 End: 04-06-[address] [facility] Start: 03-03-2023 Orders Only Lian Dan [employer] ENGINEER Work Phone: [facility] Start: 03-02-2023 Refill Farnaz Bennett CMA [facility] Comment on above: 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 Start: 02-20-2023 End: 03-06-2023 ambulatory [facility] Start: 10-11-2022 End: 10-11-2022 ambulatory Aziz Bakhous Other [facility] Other Start: 10-11-2022 Office outpatient vi sit 25 minutes Aziz Bakhous [facility] Start: 06-07-2022 End: 06-07-2022 ambulatory Aziz Bakhous Other [facility] Other Start: 06-07-2022 Patient encounter procedure Aziz Bakhous [facility] Start: 06-01-2022 End: 06-02-2022 ambulatory AZIZ BAKHOUS Facility:[facility] Start: 05-03-2022 End: 05-04-2022 ambulatory AZIZ BAKHOUS Facility:[facility] Start: 04-26-2022 End: 04-26-2022 ambulatory Aziz Bakhous Other [facility] Other Start: 04-26-2022 Office outpatient ne w 30 minutes Aziz Bakhous [facility] Start: 03-25-2022 End: 03-26-[address] CARSON SULLIVAN Facility:[facility] Start: 11-12-2021 End: 11-13-[address] CARSON SULLIVAN Facility:[facility] Start: 11-04-2021 End: 11-04-2021 ambulatory SABRINA MANUEL Facility:[facility] Start: 10-07-2021 End: 10-07-2021 ambulatory SABRINA ZAHLKHANH Facility:[facility] Procedures Date Procedure Procedure Detail Performing Clinician Start: 12-28-2023 Adult depression scr eening assessment Carson Furlong DO Work Phone: Start: 10-10-2023 Adult depression scr eening assessment Carson Furlong DO Work Phone: Start: 09-26-2023 Adult depression scr eening assessment Carson Furlong DO Work Phone: Start: 06-28-2023 Adult depression scr eening assessment Carson Furlong DO Work Phone: Start: 04-28-2023 Adult depression scr eening assessment Lian Westbrookuch [employer]ER[employer]EN[employer] ENGINEER Work Phone: Start: 04-07-2023 CRYOTHERAPY SKIN LESION Yulia FOSTER Work Phone: Start: 03-30-2023 Follow-up visit Follow-up LIAN DAN Start: 03-30-2023 Adult depression scr eening assessment Lian Dna [employer] ENGINEER Work Phone: Start: 02-09-2023 Adult depression scr eening assessment Lian Dan [employer] ENGINEER Work Phone: Plan of Treatment Date Care Activity Detail Author Start: 03-12-2025 Tobacco Screening Tobacco Screening [facility] Start: 02-21-2025 Tobacco Screening Tobacco Screening [facility] Start: 12-27-2024 Adult BMI Screening Adult BMI Screen ing [facility] Start: 12-27-2024 Depression Screening Depression Scre ening [facility] Start: 12-27-2024 Fall Risk Screening Fall Risk Screen ing [facility] Start: 12-27-2024 Tobacco Screening Tobacco Screening [facility] Start: 10-10-2024 End: 10-10-2024 Patient encounter procedure 10/10/2024 9:40 AM EDT Office Visit [facility] [address] [place] [address] [facility] Start: 10-09-2024 Adult BMI Screening Adult BMI Screen ing [facility] Start: 10-09-2024 Depression Screening Depression Scre ening [facility] Start: 10-09-2024 Fall Risk Screening Fall Risk Screen ing [facility] Start: 10-09-2024 Medicare Annual Well ness Visit Medicare Annual Wellness Visit [facility] Start: 10-09-2024 Tobacco Screening Tobacco Screening [facility] Start: 09-25-2024 Adult BMI Screening Adult BMI Screen ing [facility] Start: 09-25-2024 Depression Screening Depression Scre ening [facility] Start: 09-25-2024 Fall Risk Screening Fall Risk Screen ing [facility] Start: 09-25-2024 Tobacco Screening Tobacco Screening [facility] Start: 06-27-2024 Adult BMI Screening Adult BMI Screen ing [facility] Start: 06-27-2024 Depression Screening Depression Scre ening [facility] Start: 06-27-2024 Fall Risk Screening Fall Risk Screen ing [facility] Start: 06-27-2024 Tobacco Screening Tobacco Screening [facility] Start: 06-06-2024 End: 06-06-2024 Patient encounter procedure 06/06/2024 11:00 AM EDT Office Visit [facility] Internal Medicine - Family Medicine [address] [place] [address] Carson Sullivan, DO [address], [facility] [place] [address] [facility] Start: 04-28-2024 Adult BMI Screening Adult BMI [...] Screening Tobacco Screening [facility] Start: 03-26-2024 End: 03-26-2024 Patient encounter procedure 03/26/2024 1:30 PM EST Office Visit [facility] - Family Medicine [address] [place] [address] Carson Sullivan, [address], [place] [address] [facility] Start: 03-12-2024 End: 03-12-2024 Patient encounter procedure 03/12/2024 4:00 PM EST [facility] [address] [place] [address] Carson Sullivan, DO [address] [place] [address] [facility] Start: 02-22-2024 End: 02-22-2024 ambulatory 02/22/2024 2:15 PM EST Support Visit [facility] [address] [place] [address] Carson Sullivan, DO [address], [place] [address] [facility] Start: 02-10-2024 Adult BMI Screening Adult BMI Screen ing [facility] Start: 02-10-2024 Depression Screening Depression Scre ening [facility] Start: 02-10-2024 Fall Risk Screening Fall Risk Screen ing [facility] Start: 02-10-2024 Tobacco Screening Tobacco Screening [facility] Start: 12-28-2023 End: 12-28-2023 Patient encounter procedure 12/28/2023 1:00 PM EDT Office Visit [facility] [address] [place] [address] Carson Sullivan DO [address], [place] [address] [facility] Start: 11-05-2023 Influenza vaccination Influenza Vacc ine [facility] Start: 10-10-2023 End: 10-10-2023 Patient encounter procedure 10/10/2023 2:20 PM EDT Office Visit [facility] [address] [place] [address] [facility] Start: 10-10-2023 End: 10-10-2023 Patient encounter procedure 10/10/2023 10:40 AM EDT Office Visit [facility] [address] [place] [address] [facility] Start: 09-26-2023 End: 09-26-2023 Patient encounter procedure 09/26/2023 1:45 PM EDT Office Visit [facility] [address] [place] [address] Carson Sullivan DO [address], [place] [address] [facility] Start: 08-17-2023 End: 08-17-2023 Patient encounter procedure 08/17/2023 11:40 AM EDT Office Visit [facility] [address] [place] [id number] [facility] - Family Medicine [...] [facility] [address] [place] [address] Yulia Hernández PA [address] [place] [address] [facility] Start: 04-07-2023 End: 04-07-2023 Patient encounter procedure 04/07/2023 10:20 AM EST Office Visit [facility] [address] [place] [address] Yulia Hernández PA [address] [place] [address] Arrived [facility] Comment on above: Arrived Start: 03-30-2023 End: 03-30-2024 XR Shoulder - left 2 Views X-ray shoulder left minimum 2 views Imaging Routine Chronic pain of both shoulders Expected: 03/30/2023, Expires: 03/30/2024 [facility] Work Phone: Comment on above: Expected: 03/30/2023 , Expires: 03/30/2024 Start: 03-30-2023 End: 03-30-2024 XR Shoulder - right 2 Views X-ray shoulder right minimum 2 views Imaging Routine Chronic pain of both shoulders Expected: 03/30/2023, Expires: 03/30/2024 [facility] Comment on above: Expected: 03/30/2023 , Expires: 03/30/2024 Start: 03-07-2023 End: 03-07-2023 Patient encounter procedure 03/07/2023 2:00 PM EST Appointment [facility] [address] [place] [address] [facility] Start: 02-03-2023 Screening for malign ant neoplasm of colon Colon Cancer Screening 3 Year Cologuard [facility] Start: 05-10-1966 Administration of varicella zoster vaccine Zoster (Shingles) Vaccine (1 of 2) [facility] Start: 05-10-1965 Adult BMI Follow Up Plan Adult BMI Follow Up Plan [facility] Start: 1945 Tobacco Counseling Tobacco Counselin g [facility] Lab Routine Special screening for malignant neoplasm of colon Ordered: 06/03/2023 [employer] Work Phone: Comment on above: Ordered: 06/03/2023 Renal function 2000 panel - Serum or Plasma [facility] Immunizations Immunization Date Immunization Notes Care Provider Bonnie ramirez 12-28-2023 Seasonal trivalent influenza vaccine, adjuvanted, preservative free Carson Furlong DO Work Phone: [facility] 02-09-2023 Influenza Vaccine, Quadrivalent, Adjuvanted Lian Ni [employer]EN[employer] ENGINEER Work Phone: [facility] 02-09-2023 influenza virus vacc ine, unspecified formulation Carson Furlong DO Work Phone: [facility] 12-04-2020 influenza, high dose seasonal, preservative-free Lian Ni [employer]EN[employer] ENGINEER Work Phone: [facility] 11-25-2019 influenza, injectabl e, quadrivalent, preservative free Lian Ni [employer]EN[employer] ENGINEER Work Phone: [facility] 05-18-2019 Seasonal trivalent influenza vaccine, adjuvanted, preservative free Lian Ni [employer]ER[employer]EN[employer] ENGINEER Work Phone: [facility] 11-19-2018 Seasonal trivalent influenza vaccine, adjuvanted, preservative free Lian Ni [employer]ER[employer]EN[employer] ENGINEER Work Phone: [facility] 11-20-2017 influenza, injectabl e, quadrivalent, contains preservative Lian Ni [employer]ER[employer]EN[employer] ENGINEER Work Phone: [facility] 11-20-2017 Seasonal trivalent influenza vaccine, adjuvanted, preservative free Lian Ni [employer]EN[employer] ENGINEER Work Phone: [facility] 11-25-2016 influenza, injectabl e, quadrivalent, preservative free Lian Ni [employer]EN[employer] ENGINEER Work Phone: [facility] 11-25-2016 influenza, seasonal, injectable Lian Ni [employer]INEER Work Phone: [facility] 03-14-2016 pneumococcal polysaccharide vaccine, 23 valent Lian Ni [employer] ENGINEER Work Phone: [facility] 12-10-2015 influenza, high dose seasonal, preservative-free Lian Ni [employer] ENGINEER Work Phone: [facility] 03-10-2015 pneumococcal conjuga te vaccine, 13 valent Lian Ni [employer] ENGINEER Work Phone: [facility] 12-08-2014 influenza, seasonal, injectable, preservative free Lian Ni [employer] ENGINEER Work Phone: [facility] 04-10-2014 tetanus toxoid, redu savanna diphtheria toxoid, and acellular pertussis vaccine, adsorbed Lian Ni [employer] ENGINEER Work Phone: [facility] 12-23-2013 influenza virus vacc ine, unspecified formulation Lian Ni [employer]EN[employer] ENGINEER Work Phone: [facility] 01-28-2013 pneumococcal conjuga te vaccine, 13 meli Dan [employer]ER[employer]EN[employer] ENGINEER Work Phone: [facility] Payers Date Payer Category Payer Self-pay 2023 Private Health Insurance 2013 Medicare [id number] 2013 Medicare HMO [employer] MEDICARE Member Subscriber Plan / Payer (Effective 2013-Present) Name: Drea Tellez Relation to Subscriber: Self Name: Drea Tellez Payer ID: [id number] (NAIC) Type: Not on file Address: [place] [id number] 1957 Medicare [id number] 1947 Unknown [id number] 2.16840.1.630323.3.579. 2.593 1947 Unknown [id number] 2.16840.1.494160.3.579. 2.593 1947 Unknown [id number] 2.16.840.1.087016.3.579. 2.593 1947 Unknown [id number] 2.16.840.1.000068.3.579. 2.593 1947 Unknown [id number] 2.16.840.1.998686.3.579. 2.593 1947 Unknown [id number] 2.16.840.1.704926.3.579. 2.593 1947 Unknown [id number] 2.16.840.1.748910.3.579. 2.128 1947 Unknown [id number] 2.16.840.1.458007.3.579. 2.1285 1947 Unknown [id number] 2.16.840.1.570856.3.579. 2.1285 1947 Unknown [id number] 2.16.840.1.226963.3.579. 2.1285 1947 Unknown [id number] 2.16.840.1.518095.3.579. 2.1258 1947 Unknown [id number] 2.16.840.1.131658.3.579. 2.1258 1947 Unknown [id number] 2.16840.1.951443.3.579. 2.1258 1947 Unknown [id number] 2.840.1.458434.3.579. 2.1258 1947 Unknown [id number] 2.16840.1.804526.3.579. 2. 1947 Unknown [id number] 2.16840.1.237918.3.579. 2. 1947 Unknown [id number] 2.16840.1.132880.3.579. 2.1285 1947 Unknown [id number] 2.840.1.968444.3.579. 2.1285 1947 Unknown [id number] 2.16840.1.341447.3.579. 2.1285 1947 Unknown [id number] 2.16.840.1.998317.3.579. 2.1285 1947 Unknown [id number] 2.16.840.1.933968.3.579. 2.1285 1947 Unknown [id number] 2.16840.1.189796.3.579. 2.1285 1947 Unknown [id number] 2.16840.1.834516.3.579. 2.1286 1947 Unknown [id number] 2.16.840.1.617956.3.579. 2.1286 Medicare Medicare [id number] Unknown [id number] 2.16.840.1.910311.3.579. 2.531 Social History Date Type Detail Facility Start: 07-18-2022 End: 08-02-2022 Sex Assigned At [facility] Start: 11-16-2021 End: 06-28-2023 Tobacco smoking status IAIS Smokes tobacco daily [facility] History of tobacco use Cigarette Smoker P [facility] Start: 11-16-2021 End: 07-18-2022 Cigarettes smoked current (pack per day) - Reported 1 [facility] Start: 11-16-2021 End: 06-28-2023 Tobacco use and exposure Smokeless tobacco non-user [facility] Start: 02-09-2023 End: 09-26-2023 Alcohol intake Lifetime non-drinker (finding) [facility] Do you belong to any clubs or organizations such as religion groups, unions, fraternal or athletic groups, or school groups? No [facility] Are you now , , , , never or living with a partner? [facility] How often to you hav e a drink containing alcohol? Monthly or less [facility] How many standard dr inks containing alcohol do you have on a typical day? 1 or 2 [facility] How often do you hav e 6 or more drinks on 1 occasion? Never [facility] How hard is it for y ou to pay for the very basics like food, housing, medical care, and heating Not hard at all [facility] Do you feel stress - tense, restless, nervous, or anxious, or unable to sleep at night because your mind is troubled all the time - these days [OSQ] Only a little [facility] Start: 1945 Sex Assigned At Not on file [facility] Start: 03-10-2023 Tobacco smoking status [facility] Tobacco smoking consumption unknown [facility] Start: 10-24-2023 Tobacco smoking status IAIS Smoker (finding) [facility] Start: 1945 Sex Assigned At Female [facility] Start: 06-28-2023 Tobacco Comment Trying to cut back-smoking about 1/2 PPD now but it depends; trying to quit so she can have shoulder replacement surgery [facility] Start: 10-09-2014 Sex Female (finding) [facility] Clinical Notes 10-07-2021 to 03-12-2024 Carson G Neal, DO - 03/12/2024 4:00 PM ESTTelephone Encounter - Do Ryan - 03/04/2024 9:50 AM ESTTelephone Encounter - Carson Biggskye, - 03/04/2024 9:50 AM EST Note Date & Type Note Facility 03-12-2024 History of Presen t illness Narrative Subjective Patient ID: Drea Tellez is a 78 y.o. female. Laquita presents today for follow-up for shingles. Started 1 week ago. She went to the urgent care and was given antiviral treatment. The lesions are starting to crust over. She is still having a lot of pain but not as bad. She is using oxycodone for her chronic pain. She does not want gabapentin. It caused swelling in her hands and feet when she took it last time. She has an appointment with pain management coming up in 2 weeks. She rarely uses lorazepam because the pain management does not want her taking both. She is taking trazodone 200 mg at bedtime as needed for insomnia that helps mild to moderately well. It takes about 2 hours to kick in when she does take it. She has been having trouble sleeping lately because of the pain. She does not want anymore pills. She is interested in the Lidoderm patch. She did get an tqdo-ggl-taheqpm Biofreeze patch with mild benefit. She regrets not getting the shingles vaccine when she had the chance. She is interested in getting it now. She did do an Internet search and found that she had to wait 12 months from the onset of symptoms before she can get the vaccine. She wants to know if she has to wait that long. The following portions of the patient's history were reviewed and updated as appropriate: allergies, current medications, past family history, past medical history, past social history, past surgical history, problem list, and medication reconciliation was completed including current medication and post discharge medication. Review of Systems Objective Physical Exam Vitals reviewed. Constitutional: General: She is not in acute distress. Appearance: She is not ill-appearing. HENT: Head: Normocephalic. Skin: Findings: Rash (Red papules most which are crusted upper back and down left to about her elbow. No signs of cellulitis.) present. Neurological: General: No focal deficit present. Mental Status: She is alert and oriented to person, place, and time. Psychiatric: Attention and Perception: Attention normal. Mood and Affect: Mood and affect normal. Speech: Speech normal. Behavior: Behavior normal. Behavior is cooperative. Thought Content: Thought content normal. Cognition and Memory: Cognition normal. Judgment: Judgment normal. Assessment/Plan Drea was seen today for herpes zoster. Diagnoses and all orders for this visit: Post-herpetic polyneuropathy - lidocaine (LIDODERM) 5 %; Place 1 patch on the skin daily as needed for pain. Remove & Discard patch within 12 hours or as directed by MD She has significant pain with her shingles. The lesions have crusted over so we will try a Lidoderm patch. She puts a 1 on for 12 hours and then must remove it. She can continue other pain modalities. Other orders - traZODone (DESYREL) 100 mg tablet; Take 1 tablet (100 mg total) by mouth nightly as needed for sleep. Okay to use to trazodone at bedtime but may need to take it earlier for best results. Stay off lorazepam. Since she is no longer going to take lorazepam she can cancel her visit in 2 weeks. documented in this encounter [facility] 03-04-2024 Miscellaneous Notes Formattin g of this note might be different from the original. PATIENT WENT TO THE er MONDAY FOR HER SHINGLES, THEY ARE VERY PAINFUL AND BURNING. SHE IS TAKING TYLENOL BUT ITS NOT HELPING, SHE WAS WONDERING IF YOU COULD RECOMMEND SOMETHING TO HELP. COMES IN 03/12 She can try a Lidoderm patch if the lesions are closed. She does have pain pills available and she can not take Motrin so there is not a whole lot more to offer. Pain management can do injections but I do not think she sees pain management anymore Notified documented in this encounter [email or web address] 03-04-2024 Telephone encount er Note PATIENT WENT TO THE er MONDAY FOR HER SHINGLES, THEY ARE VERY PAINFUL AND BURNING. SHE IS TAKING TYLENOL BUT ITS NOT HELPING, SHE WAS WONDERING IF YOU COULD RECOMMEND SOMETHING TO HELP. [facility]12 [facility] 03-04-[facility]24 Telephone encount er Note She can try a Lidoderm patch if the lesions are closed. She does have pain pills available and she can not take Motrin so there is not a whole lot more to offer. Pain management can do injections but I do not think she sees pain management anymore [email or web address] 03-04-2024 Telephone encount er Note Notified [facility] 01-31-2024 Miscellaneous Notes Formattin g of this note might be different from the original. Pt requesting refill on levothyroxine. [facility]. documented in this encounter [facility] [employer] 01-31-2024 Telephone encount er Note Pt requesting refill on levothyroxine. [facility] Room [facility] 10-24-2023 Evaluation note Diagnosis Onset Date Anemia acute 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 acu te Chronic kidney disease, stage 3a acute Hyponatremia acute Nephrolithiasis acute Vitamin D deficiency acute [facility] Work Phone: 1(565) 311-948208-06-2024 History of Present illness Narrative* Carson Kohliconsuelo, DO - 10/10/2023 10:40 AM EDT Subjective SUBJECTIVE: Patient ID: Drea Tellez is a 78 y.o. female who presents for a Medicare Annual Wellness exam. HPI The following portions of the patient's history were reviewed and updated as appropriate: allergies, current medications, past family history, past medical history, past social history, past surgicalhistory and problem list. AWV FLOWSHEET : Lifestyle Assessment Do you smoke or use smokeless tobacco?: (!) Yes If you smoke or use smokeless tobacco, are you ready to quit?: (!) Yes Are you exposed to secondhand smoke?: No On average, how many drinks of alcohol do you consume in a week?: None Do you exercise for 30 or more minutes on average at least 3 days a week?: Often Do you have any tooth, denture, or oral problems?: No Do you snore or has anyone told you that you snore?: No Do you try to eat a balanced diet?: Yes Do you experience leakage of urine, also known as urinary incontinence?: Never Do you have difficulty performing any of these activities? (check all that apply): None Do you have difficulty performing any of these activities? (check all that apply): None Fall Risk Fall Risk Assessment Completed?: Yes Have you fallen in the past year?: No Are you worried about falling?: No Do you feel unsteady when standing or walking?: No Risk Stratification: Low Risk Depression Screening Little interest or pleasure in doing things: Not at all Feeling down, depressed, or hopeless: Not at all Trouble falling or staying asleep, or sleeping too much: Not at all Feeling tired or having little energy: Not at all Poor appetite or overeating: Not at all Feeling bad about yourself - or that you are a failure or have let yourself or your family down: Not at all Trouble concentrating on things, such as reading the newspaper or watching television: Not at all Moving or speaking so slowly that other people could have noticed. Or the opposite - being so fidgety or restless that you have been moving around a lot more than usual: Not at all Thoughts that you would be better off , or of hurting yourself in some way: Not at all PEG Scale What number best describes your pain on average in the past week?: 6 What number best describes how, during the past week, pain has interfered with your enjoyment of life?: 4 Safety Assessment Do you have throw rugs on the floor?: No Do you feel safe at your home?: Yes Do you feel unsteady when walking?: No Are you having difficulty with driving?: No Do you have trouble seeing?: No What assistive device do you use? (check all that apply): None Hearing Assessment Do you strain or struggle to hear/understand conversations?: No Do you have trouble hearing the television or radio when others do not?: No Does your family ever voice concerns about your hearing?: No Do you wear hearing aid/s?: No Personal Health During the past 4 weeks, how would you rate your overall health?: Very Good Do you understand how to take all of your medications?: Yes How confident are you that you can control and manage most of your health problems?: Very confident In the past 12 months, how many times have you been hospitalized?: None End of Life Planning Do you have a living will?: Yes Do you have a durable power of real estate associate attorney?: Yes Cognitive Screening Do you have trouble remembering or recalling facts or events?: No Do family members or caregivers report that you have difficulty remembering things?: No Clock Drawing Test: Normal REVIEW OF SYSTEMS: Review of Systems Objective PHYSICAL EXAMINATION: Vitals: 10/10/23 1037 BP: 137/68 Weight: 64.8 kg (142 lb 14.4 oz) Height: 157.5 cm (5' 2 ) Physical Exam Assessment/Plan ASSESSMENT/PLAN Encounter Diagnoses Name Primary? Medicare annual wellness visit, subsequent Yes Screening for depression Health maintenance discussed. Depression screen was negative. At least 3 minutes spent administering and discussing. Cognitive evaluation did not reveal any impairment. She has advanced directives in place. Return in about 1 year (around 10/09/2024). [facility] Miscellaneous Notes* Telephone Encounter - Imani Leone - 09/28/2023 10:15 AM EDT Patient called to request pain management referral discussed at her last visit. documented in this encounterW[facility] Telephone encounter Note* Telephone Encounter - Imani Leone - 09/28/2023 10:15 AM EDT Patient called to request pain management referral discussed at her last visit. [facility]07-23-2024 History of Present illness Narrative* Carson Sullivan DO - 09/26/2023 1:45 PM EDT Subjective Patient ID: Drea Tellez is a 78 y.o. female. Returns for a follow-up appointment for her chronic pain. She has been having much more pain with her shoulders. She needs 1 replaced but the specialist wants her to stopped smoking 1st. She has cut back in his using a nicotine patch but she is still smoking. She had to increase her oxycodone use temporarily if she would wake up in the middle of the night in pain so she took an extra 1 for 12 days. She has now coming up 3 days short. It did provide moderate relief and typically it does provide gdti-zg-srebqimr relief but she notes that it does not as much as it used to. She wonders if I can do a cortisone injection in her shoulder. She had a family member have 1 done by me and it worked great. She would seen pain management in the past but pain management she saw gave her a lot of medications And she no longer sees the other pain management she was going to. She said she did have an injection but it did not work. She is taking duloxetine for the fibromyalgia pain but does not feel it is working. She is willing to increase the dose. The following portions of the patient's history were reviewed and updated as appropriate: allergies, current medications, past family history, past medical history, past social history, past surgicalhistory, problem list, and medication reconciliation was completed including current medication andpost discharge medication. Review of Systems Constitutional: Negative. HENT: Negative. Respiratory: Negative. Cardiovascular: Negative. Gastrointestinal: Negative. Genitourinary: Negative. Musculoskeletal: Positive for arthralgias and back pain. Neurological: Negative. Psychiatric/Behavioral: Negative. Objective Physical Exam Vitals reviewed. Constitutional: General: She is not in acute distress. HENT: Head: Normocephalic. Eyes: General: No scleral icterus. Extraocular Movements: Extraocular movements intact. Conjunctiva/sclera: Conjunctivae normal. Cardiovascular: Rate and Rhythm: Normal rate and regular rhythm. Pulses: Normal pulses. Heart sounds: Normal heart sounds. Pulmonary: Effort: Pulmonary effort is normal. No respiratory distress. Breath sounds: Normal breath sounds. No wheezing, rhonchi or rales. Musculoskeletal: General: Tenderness present. Right shoulder: Tenderness present. Decreased range of motion. Left shoulder: Tenderness present. Decreased range of motion. Cervical back: Neck supple. No rigidity. Lumbar back: Tenderness present. Neurological: General: No focal deficit present. Mental Status: She is alert and oriented to person, place, and time. Psychiatric: Mood and Affect: Mood normal. Behavior: Behavior normal. Thought Content: Thought content normal. Judgment: Judgment normal. Assessment/Plan Drea was seen today for controlled sub. Diagnoses and all orders for this visit: Localized osteoarthrosis of both shoulder regions I told her I do not do intra-articular injections in the shoulder But pain management or orthopedics could do it. She was going to reach out to her orthopedist to see if he would do it. Okay to temporarily increase oxycodone use but that is not a long-term solution. She needs to quit smoking so shecan have her shoulders replaced. Postlaminectomy syndrome, not elsewhere classified She is using a high risk medication with benefit although it is effectiveness has waned. We discussed tolerance and hyperalgesia. I recommended she not increase the dose her chronic use but stay on for a day and could other alternatives to control her pain. We did discuss pain management again and that she should consider injections once again. Tobacco dependence syndrome Strongly encouraged to quit smoking so she can have her surgery. Fibromyalgia Increase duloxetine to 60 mg daily. Other orders - DULoxetine (CYMBALTA) 60 mg capsule; Take 1 capsule (60 mg total) by mouth in the morning. documented in this encounterW[facility] History of Present illness Narrative* NIRANJAN Herrera - 08/31/2023 11:58 AM EDT The OARRS/MAPPS database was reviewed today and found to be appropriate. No indication of medication diversion, or non compliance. NIRANJAN Herrera 08/31/23 1159 documented in this encounterW[facility]06-20-2024 Miscellaneous Notes* Telephone Encounter - NIRANJAN Herrera - 08/24/2023 2:[address] Sullivan it looks like per JESUShadley that you have been prescribing this for her but she is due for an appointment Staff please set up controlled substance agreement by the end of September with or Dr. Sullivan documented in this encounterW[facility]06-[facility]24 Telephone encounter Note* Telephone Encounter - NIRANJAN Herrera - 08/24/2023 2:[address] Sullivan it looks like per OARRs that you have been prescribing this for her but she is due for an appointment Staff please set up controlled substance agreement by the end of September with or Dr. Sullivan [facility]06-11-2024 Miscellaneous Notes* Telephone Encounter - Julisa Neal - 08/15/2023 4:13 PM EDT Called pt to remind her of MAW appointment August 16 at 1140. documented in this encounterW[facility]06-11-2024 Telephone encounter Note* Telephone Encounter - Julisamary Sullivan - 08/15/2023 4:13 PM EDT Called pt to remind her of MAW appointment August 16 at 1140. [facility]04-26-[facility] Miscellaneous Notes* Telephone Encounter - Kim Diamond CMA - 06/30/2023 3:01 PM EDT Care Coordination Outreach performed to coordinate overdue appointments, testing, and/or follow-up care: Yes Audit/Outreach Date: June 30, 2023 Reason: Colorectal Cancer Screening Method: Telephone Outreach Attempt: First Outcome: Contacted Patient Next PCP Appointment: Has Next PCP Appt Tests/Referrals Pended: N/A Resources/Education Provided: Additional Comments: Spoke with patient regarding cologuard. Patient plans to complete soon. documented in this encounterW[facility]04-26-2024 Telephone encounter Note* Telephone Encounter - Kim Diamond CMA - 06/30/2023 3:01 PM EDT Care Coordination Outreach performed to coordinate overdue appointments, testing, and/or follow-up care: Yes Audit/Outreach Date: June 30, 2023 Reason: Colorectal Cancer Screening Method: Telephone Outreach Attempt: First Outcome: Contacted Patient Next PCP Appointment: Has Next PCP Appt Tests/Referrals Pended: N/A Resources/Education Provided: Additional Comments: Spoke with patient regarding cologuard. Patient plans to complete soon. [facility]04-[facility] History of Present illness Narrative* Carson Sullivan, - 06/28/2023 11:30 AM EDT Subjective Patient ID: Drea Tellez is a 78 y.o. female. Laquita presents today for recheck of multiple problems. She is in need of a left shoulder replacement and the right is not far behind. The orthopedic doctor wants her to quit smoking which is did very difficult for her. She has cut back to less than half a pack a day. She wonders why she has to quit smoking since she has had other surgeries and they did not require her to quit smoking. She is still having quite a bit of pain in the low back and her fibromyalgia. The hydrocodone only last for about 2 hours. She is having difficulty sleeping. The pain wakes her up at night. She has tried Tylenol PM but was told not to take it because of a risk of falls. She has not fallen in many years. This is been an ongoing issue and it is starting to affect her mentally. She has had several back surgeries which helped at the time, injections which did not help but she did need surgery. Medications have helped moderately although now it is not working nearly as well as it used to. She had used lorazepam in the past with moderate benefit. She would like to have some on hand to use as needed. She had a skin cancer removed from her nose earlier this year. She is seeing the charge attendant and her last labs showed her kidney function was improving. The following portions of the patient's history were reviewed and updated as appropriate: allergies, current medications, past family history, past medical history, past social history, past surgicalhistory, problem list, and medication reconciliation was completed including current medication andpost discharge medication. Review of Systems Constitutional: Negative. Respiratory: Negative. Cardiovascular: Negative. Gastrointestinal: Negative. Genitourinary: Negative. Musculoskeletal: Positive for arthralgias, back pain, myalgias and neck pain. Negative for gait problem. Neurological: Negative. Hematological: Negative. Psychiatric/Behavioral: Positive for sleep disturbance. Objective Physical Exam Constitutional: General: She is not in acute distress. HENT: Head: Normocephalic. Eyes: General: No scleral icterus. Extraocular Movements: Extraocular movements intact. Conjunctiva/sclera: Conjunctivae normal. Cardiovascular: Rate and Rhythm: Normal rate and regular rhythm. Pulses: Normal pulses. Heart sounds: Normal heart sounds. No murmur heard. Pulmonary: Effort: Pulmonary effort is normal. No respiratory distress. Breath sounds: Normal breath sounds. No wheezing, rhonchi or rales. Musculoskeletal: Cervical back: Neck supple. Lymphadenopathy: Cervical: No cervical adenopathy. Neurological: General: No focal deficit present. Mental Status: She is alert and oriented to person, place, and time. Psychiatric: Attention and Perception: Attention normal. Mood and Affect: Mood and affect normal. Speech: Speech normal. Behavior: Behavior normal. Behavior is cooperative. Thought Content: Thought content normal. Cognition and Memory: Cognition normal. Judgment: Judgment normal. Assessment/Plan Drea was seen today for hypertension and hypothyroidism. Diagnoses and all orders for this visit: 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 ([facility]) - Basic Metabolic Panel; Future Blood pressure essentially at goal. Check BMP. Follow-up with charge attendant as directed. Acquired hypothyroidism - Thyroid profile includes TSH FT4; Future Check TSH and T4. Fibromyalgia - DULoxetine (CYMBALTA) 30 mg capsule; Take 1 capsule (30 mg total) by mouth in the morning. Patient with history of fibromyalgia. She is never tried duloxetine. We will start with 30 mg p.o. daily. Will try to titrate up dose. Anxiety - LORazepam (ATIVAN) 1 mg tablet; Take 1 tablet (1 mg total) by mouth daily as needed for anxiety. Will allow lorazepam 1 mg daily as needed for anxiety. Cautioned drowsiness and use with opioid. Can increase risk of overdose. She is aware of this. Postlaminectomy syndrome, not elsewhere classified She is getting minimal relief now with the hydrocodone. She is probably building up a tolerance to the medication. We discussed rotating the opioid. We will change it to oxycodone at next refill. We also discussed pain management. She failed it in the past but she did require surgery and so that was probably a big reason why it did not work. They maybe able to alleviate some of her pain with their procedures. She will think about it. The OARRS/MAPPS database was reviewed today and found to be appropriate. No indication of medication diversion, or non compliance. Sleep disturbance Can use lorazepam p.r.n. for sleep disturbance. Tobacco dependence syndrome Encouraged smoking cessation. Benefits of smoking cessation discussed. Discussed different treatment options but she declined prescription treatments. Spinal stenosis of lumbar region without neurogenic claudication As above. Hypokalemia Check potassium. Hyperlipidemia, unspecified hyperlipidemia type She does not want to check for cholesterol as she would not take any cholesterol medications. She is aware of an increased risk of cardiovascular events and strokes. documented in this encounterCopley HospitalZOZI [id number] History of Present illness Narrative* KRISTIN Contreras [...] limited to risks of scarring, darker or design chief pigmentary changes, recurrence, incomplete removal and infection. 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 The pain has been going on for [...] Hyperlipidemia Hypokalemia Migraine Osteopenia Peripheral vascular disease ([facility]) Screen for colon cancer 02/04/2020 cologuard-negative Spinal [...] by mouth every morning 90 tablet 1 fn-ise-irazn-calcium carb-K1 400 mcg-500 mg calcium-20 mcg tablet [...] or hospitalization) Allergies: Sulfa (sulfonamide antibiotics), Hydrochlorothiazide, Vklhrdl-syj-wln reductase inhibitors, and Nickel Tobacco History: Social [...] Drug Screen, Urine; Future Peripheral vascular disease ([facility]) Stage 3b chronic kidney disease ([facility]) Smoker Follow-up: Will obtain new x-rays bilateral shoulders, order sent to [facility]. Agree with stopping physical therapy if it is not making the pain any better. Patient would like a referral to Orthopedics in [place], this was placed in system. She should [...] file.Pt is due for refill 2/3 - [place] Rx placed for this specific date. At next appt, consider lowering dose to lowest effective dose to help control pain. NIRANJAN HERRERA APRN-CNP 04/02/23 1244 documented in this encounterCopley HospitalZOZI [id number] Evaluation note* Encounter Date Diagnosis Assessment Notes [...] WNL I asked the patient to continue lupf-nrs-rxdvyke vitamin D supplement 1999Mar, Nephrolithiasis (ICD-10 - N20.0) Renal ultrasound shows nonobstructive bilateral renal calculi which are small in size. I asked the patient to continue ample water intake LK FREEMAN Other 12-29-2023 History of Present illness Narrative* NIRANJAN Herrera - 03/03/2023 1:29 PM EST The OARRS/MAPPS database was reviewed today and found to be appropriate. No indication of medication diversion, or non compliance. Pt is due for refill 03/11/22, last filled 02/08/[address] Sullivan who is out of town. NIRANJAN Herrera 03/03/23 1332 documented in this encounterW[facility] Miscellaneous Notes* Telephone Encounter - [...] WNL I asked the patient to continue eczp-vsd-vytyagh vitamin D supplement 1999Oct, Nephrolithiasis (ICD-10 - N20.0) Renal ultrasound shows nonobstructive bilateral renal calculi which are small in size. I asked the patient to continue ample water intake LK FREEMAN Other 04-04-2023 Evaluation note* Encounter Date Diagnosis [...] is low at 19. I patient with dweq-rgc-tsurdal vitamin D supplement 1999Jun, Nephrolithiasis (ICD-10 - N20.0) Renal ultrasound shows nonobstructive bilateral renal calculi which are small in size. I asked the patient to continue ample water intake LK FREEMAN Other 02-21-2023 Evaluation note* Encounter Date Diagnosis [...] at home and to follow low-salt diet LK FREEMAN Other 09-01-2022 NoteOPERATIVE NOTE OPERATION DATE: 11/04/2021 [...] ensuring mobility, phacoemulsification was performed in a mlltazs-mli-mbciei-type fashion. After all nuclear material had been [...] up the following day for postoperative care.[facility] [id number] NoteHISTORY AND PHYSICAL EXAMINATION Date:11/03/2021 HISTORY: Patient [...] decline other than that of cataract. 2. JECVP-75-Pev patient was briefed in the office and [...] and go forward with this elective procedure.[facility] [id number] NoteOPERATIVE NOTE OPERATION DATE: 10/07/2021 SURGEON: Sabrina [...] ensuring mobility, phacoemulsification was performed in a wrrnupf-pai-evkgeo-type fashion. After all nuclear material had been [...] up the following day for postoperative care.[facility] 10-07-2021 NoteHISTORY AND PHYSICAL EXAMINATION Date:10/06/2021 [...] decline other than that of cataract. 2. RVDXE-45-Grk patient was briefed in the office and [...] and go forward with this elective procedure.[facility] HospitalEvaluation note* Diagnosis Lumbosacral spondylosis without myelopathy [facility] encounter [facility]* Diagnosis Chronic pain of both shoulders- Primary Peripheral vascular disease ([facility]) Unspecified peripheral vascular disease Stage 3b chronic kidney disease ([facility]) Smoker Tobacco use disorder Lumbosacral spondylosis without myelopathy documented [facility]* Diagnosis Actinic keratosis- Primary [facility] this encounter [facility]* Diagnosis Essential hypertension Unspecified essential hypertension [facility]* Diagnosis Lumbosacral spondylosis without myelopathy [facility]* Diagnosis Special screening for malignant neoplasm of colon- Primary Special screening for malignant neoplasms, colon documented [facility]* Diagnosis Lumbosacral spondylosis without myelopathy [facility]* Diagnosis 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 documented [facility]* Diagnosis Postlaminectomy syndrome, not elsewhere classified- Primary [facility]* Diagnosis Medicare annual wellness visit, subsequent- Primary Screening for depression documented [facility]* Diagnosis Postlaminectomy syndrome, not elsewhere classified [facility]* Diagnosis Essential hypertension Unspecified essential hypertension [facility]* Diagnosis Postlaminectomy syndrome, not elsewhere classified documented [facility]* Diagnosis Fibromyalgia Unspecified myalgia and myositis documented [facility]* Diagnosis 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 ([facility])- Primary Acquired hypothyroidism Unspecified hypothyroidism Fibromyalgia Unspecified myalgia and myositis Anxiety Anxiety state, unspecified Postlaminectomy syndrome, not elsewhere classified Sleep disturbance Unspecified sleep disturbance Tobacco dependence syndrome Tobacco use disorder Spinal stenosis of lumbar region without neurogenic claudication Hypokalemia Hypopotassemia Hyperlipidemia, unspecified hyperlipidemia type [facility] in this encounter [facility]* Diagnosis Anxiety Anxiety state, unspecified documented [facility] this encounter [facility]* Diagnosis Localized osteoarthrosis of both shoulder regions- Primary Postlaminectomy syndrome, not elsewhere classified Tobacco dependence syndrome Tobacco use disorder Fibromyalgia Unspecified myalgia and myositis documented in this encounter [facility] CluepediaHistory general Narrative - Reported* Type Description Date [...] Surgical History cataract surgery Hospitalization History See [employer] Other History general Narrative - Reported* Type [...] CANCER BIOPSY ON NOSE Hospitalization History See [employer] Other InstructionsNot on filedocumented in this encounter [facility]Not on filedocumented in this encounter [facility] SystemInstructionsNot on filedocumented in this encounter [facility] SystemInstructionsNot on filedocumented in this encounter [facility] SystemInstructions* Attachments The following attachments cannot be sent through Care Everywhere. * Shoulder Pain Discharge Instructions (Slovenian) documented in this encounterProMercy Health Def[facility] Hospitalca Health SystemInstructionsNot on file documented in this encounterProMedica Health SystemInstructionsNot on file documented in this encounterProMedica Health SystemInstructionsNot on file documented in this encounterProMedica Health SystemInstructionsNot on file documented in this encounterProMedica Health SystemInstructionsNot on file documented in this encounterProMercy Health Def[facility] Hospitalca Health SystemInstructionsNot on file documented in this encounterProMercy Health Defiance Hospitalca Health SystemInstructionsNot on file documented in this encounterProBeacon [facility]al Hospital Slicebooks SystemInstructionsNot on file documented in this encounterProBeacon [facility]al Hospital Slicebooks SystemInstructionsNot on file documented in this encounterAultman [facility] SystemReason for referral (narrative)* Consultation (Routine) - Pending Review Specialty Diagnoses / Procedures Referred By Darby mon Referred To Contact Orthopedic Surgery Diagnoses Chronic pain of both shoulders Lian Dan APRN-CNP [address] [place] [address] Rosales Hylton MD [address] [place] [address] Referral ID Status Reason Start Date Expiration Date Visits Requested Visits Authorized [id number] Pending Review Specialty Services Required 03/30/2023 03/29/2024 1 1 Room 21 Media System Summary Purpose Family History Relationship Condition Age [...] stage 3a Hyponatremia Nephrolithiasis Vitamin D deficiency Reason for Referral Specialty Diagnoses / Procedures Referred By Contmarium t Referred To Contact Diagnoses Anxiety Carson Sullivan DO [address] [place] [address] Referral ID Status Reason Start Date Expiration Date V isits Requested Visits Authorized [id number] Pending Review 1 1 Additional Source Comments INFORMATION SOURCE (unrecogn ized section and content) DATE CREATED AUTHOR 05/30/2021 [facility] DATE CREATED AUTHOR AUTHOR'S ORGANIZ ATION 06/10/2022 [facility] DATE CREATED AUTHOR AUTHOR'S ORGANIZ ATION 04/09/2023 [facility] DATE CREATED AUTHOR AUTHOR'S ORGANIZ ATION 05/14/2023 [facility] DATE CREATED AUTHOR AUTHOR'S ORGANIZ ATION 06/30/2023 [facility] DATE CREATED AUTHOR AUTHOR'S ORGANIZ ATION 07/16/2023 [facility] EPIC DATE CREATED AUTHOR AUTHOR'S ORGANIZ ATION 12/31/2023 [facility] DATE CREATED AUTHOR AUTHOR'S ORGANIZ ATION 03/18/2024 [facility] REASON FOR VISIT (unrecogniz ed section and content) Reason Comments Med Refill Reason Comments Follow-up Follow up shoulders Reason Comments Follow-up Reason Onset Date Comments Med Refill 04/17/2023 Reason Onset Date Comments Med Refill 05/02/2023 Reason Comments Herpes Zoster shingles Reason Onset Date Comments Preventative Screening 06/30/2023 Reason Comments MAW Reason Onset Date Comments Med Refill 07/26/2023 Reason Onset Date Comments Med Refill 08/24/2023 Reason Comments Hypertension Hypothyroidism Reason Onset Date Comments Med Refill 10/10/2023 Reason Comments controlled sub Care Teams (unrecognized sec tion and content) 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 Energy 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 Relationship Specialty Start Date End Date Carson Sullivan DO [address], [place] [address] PCP - General Family Medicine 02/14/17 Solar Energy Technician Relationship Specialty Start Date End Date Carson Sullivan DO [address] [place] [address] PCP - General Family Medicine 02/14/17 Solar Energy Technician Relationship Specialty Start Date End Date Carson Sullivan DO [address] [place] [address] PCP - General Family Medicine 02/14/17 Solar Energy Technician Relationship Specialty Start Date End Date Carson Sullivan DO [address] [place] [address] PCP - General Family Medicine 02/14/17 Solar Energy Technician Relationship Specialty Start Date End Date Carson Sullivan DO [address] [place] [address] PCP - General Family Medicine 02/14/17 Solar Energy Technician Relationship Specialty Start Date End Date Carson Sullivan DO [address] [place] [address] PCP - General Family Medicine 02/14/17 Solar Energy Technician Relationship Specialty Start Date End Date Carson Sullivan DO [address] [place] [address] PCP - General Family Medicine 02/14/17 Team [...] October 24, 2023 End: October 24, 2023 Solar Energy Technician Relationship Specialty Start Date End Date Carson Sullivan DO [address], [place] [address] PCP - General Family Medicine 02/14/17 Solar Energy Technician Relationship Specialty Start Date End Date Carson Sullivan DO [address] [place] [address] PCP - General Family Medicine 02/14/17 Solar Energy Technician Relationship Specialty Start Date End Date Carson Sullivan DO [address] [place] [address] PCP - General Family Medicine 02/14/17 Solar Energy Technician Relationship Specialty Start Date End Date Carson Sullivan DO [address] [place] [address] PCP - General Family Medicine 02/14/17 Solar Energy Technician Relationship Specialty Start Date End Date Carson Sullivan DO [address] [place] [address] PCP - General Family Medicine 02/14/17 Solar Energy Technician Relationship Specialty Start Date End Date Carson Sulliavn DO [address] [place] [address] PCP - General Family Medicine 02/14/17 Solar Energy Technician Relationship Specialty Start Date End Date Carson Sullivan [address], [place] [address] PCP - General Family Medicine 02/14/17 Solar Energy Technician Relationship Specialty Start Date End Date Carson Sullivan DO [address], [place] [address] PCP - General Family Medicine 02/14/17 Goals [...] BE BASED ON THE PRIMARY CLINICAL RECORDS. [facility]. provides no warranty or guarantee of the accuracy or completeness of information in this document.
[2024-04-02 14:08] LABS: Hematocrit 36.3 % (36.0-48.0); Mean Corpuscular HGB Conc 33.1 g/dL (29.9-35.2); Mean Corpuscular Hemoglobin 31.8 pg (26.7-34.0); Mean Corpuscular Volume 96.3 fL (81.0-99.0); Mean Platelet Volume 9.7 fL (9.5-13.5); Platelet Count 280 10^3/uL (150-450); Red Blood Count 3.77 10^6/uL (4.20-5.40); Red Cell Distribution Width 13.9 % (11.0-15.0); White Blood Count 7.3 10^3/uL (4.0-11.0)
[2024-04-02 14:15] LABS: Bilirubin Urine NEGATIVE (NEGATIVE); Blood Urine NEGATIVE (NEGATIVE); Clarity Urine CLEAR (CLEAR); Color Urine YELLOW (YELLOW); Glucose Urine UA NEGATIVE (NEGATIVE); Ketones Urine NEGATIVE (NEGATIVE); Leukocyte Esterase Urine NEGATIVE (NEGATIVE); Nitrite Urine NEGATIVE (NEGATIVE); Protein Urine NEGATIVE (NEG/TRACE); Specific Gravity Urine 1.015 (1.005-1.025); Urobilinogen Urine 0.2 EU/dL (0.2-1.0)
[2024-04-02 14:36] LABS: Albumin Level 3.8 g/dL (3.4-5.0); Anion Gap 11.9; BUN Creatinine Ratio 14.5; Calcium 8.9 mg/dL (8.5-10.1); Carbon Dioxide 23.4 mmol/L (21.0-32.0); Chloride 101 mmol/L (98-107); Estimated GFR (African America 48 (>=60 mL/min/1.73m^2); Estimated GFR (Non-African Ame 39 (>=60 mL/min/1.73m^2); Glucose 92 mg/dL (74-106); Magnesium 2.1 mg/dL (1.8-2.4); Phosphorus 3.2 mg/dL (2.6-4.7); Potassium 4.3 mmol/L (3.5-5.1); Sodium 132 mmol/L (136-145); Uric Acid 4.9 mg/dL (2.6-6.0)
[2024-04-02 14:52] LABS: Creatinine Urine Random 76.79 mg/dL (20.00-300.00); Microalbumin Urine Random <1.3 mg/dL (<=30.0); Protein Creatinine Ratio Urine 0.16; Sodium Urine Random 72 mmol/L (30-90); Total Protein Urine Random 12.3 mg/dL (<=11.9)
[2024-04-03 13:09] LABS: PTH, Intact 45 pg/mL (15-65)
[2024-04-03 23:07] LABS: Osmolality, Urine 432 mOsmol/kg (.)
== END 2024-04-02 13:31 | disposition home or self-care (01) ==
LOC: LAB 13:31
PROVIDERS: PCP Family Medicine; Visit Provider Internal Medicine Nephrology
DX: E87.1 Hypo-osmolality and hyponatremia (principal); N20.0 Calculus of kidney; E55.9 Vitamin D deficiency, unspecified; I12.9 Hypertensive chronic kidney disease with stage 1 through stage 4 chronic kidney disease, or unspecified chronic kidney disease; N18.31 Chronic kidney disease, stage 3a; D64.9 Anemia, unspecified
CPT/HCPCS: 36415; 80069; 81003; 82043; 82306; 82570; 83735; 83935; 83970; 84156; 84300; 84550; 85027

== ENCOUNTER 2024-05-22 10:06 | Outpatient (OUT) | payer MEDICARE, SELFPAY ==
--- NOTE | 2024-05-22 10:08 | CT_ITS ---
The [address] [address] Patient Name: NORA COON MRN: [id number] date: 1945 Sex: F Assigned Patient Location: CT Current Patient Location: CT Accession/Order Number: [id number] Exam Date: 05/22/2024 12:10 Report Date: 05/22/2024 15:56 At the request of: ANA GARCIA DO Procedure: CT chest wo con CT CHEST WITHOUT IV CONTRAST: CLINICAL HISTORY: Multiple Pulmonary Nodules COMPARISON: CT chest 11/13/2023 as well as 11/20/2022. Lung screening CT 08/08/2022. TECHNIQUE: Spiral images were obtained through the chest without IV contrast. This CT exam was performed using one or more following dose reduction techniques: Automated exposure control, adjustment of the mA and/or kV according to patient size, or use of iterative reconstruction technique. FINDINGS: Mediastinum:Thoracic aorta demonstrate mild calcification without aneurysm. Pulmonary trunk appears nondilated. No pleural effusion. No lymphadenopathy. The esophagus is grossly unremarkable. Lungs:Emphysema. Diffuse bronchial wall thickening. Mild lung scarring. No consolidation pneumothorax or pleural effusion. No suspicious pulmonary nodule since the study. There appears to be a focal area of scarring involving the left lower lobe on series 4 image 51 measuring 8 mm grossly unchanged from the most recent study of 11/13/2023 and has improved since the lung screening CT of 08/08/2022. No new or enlarging suspicious pulmonary nodules are seen on today's study. Abd:No acute findings. Soft tissues/Bones: Soft tissues demonstrate no acute process. Osseous structures demonstrate degenerative change. CT/CT chest wo con IMPRESSION: Stable area of scarring involving the left lower lobe compared to the most recent study of 11/13/2023. No suspicious pulmonary nodule is seen on today's study. Impression dictated by: Ernie Belle Jr., D.O.05/22/2024 3:56 PM Dictation Location: [place] [address] Electronically authenticated by: [id number] Y Date: 05/22/2024 15:56
--- OUTSIDE RECORDS SUMMARY | 2024-05-22 10:17 | XMS_ITS | CCD ---
Author Organization [facility] Care Team Providers Care Bath House Attendant Name Role Phone Bri Alonso Unavailable NEAL, DR CARSON Luciano Admitting Unavailable FURLONG, DR CARSON Luciano Attending Unavailable FURLONG, DR CARSON Luciano Consulting Unavailable FURLONG, DR CARSON Luciano Primary Care Unavailable BAKBRI EPPS Admitting Unavailable JOBY POLO Consulting Unavailable FURLONG, DR CARSON Luciano Primary Care Unavailable BAKDYLONSCRYSTALIZ Attending Unavailable BAKDYLONSBRI Consulting Unavailable BAKDYLONSBRI Consulting [...] FURLONG, DR CARSON Luciano Primary Care Unavailable Unavailable Primary Care Provider UnavailGOOD [place] Referring Unavailable FURCARSON SILVA Primary Care Unavailable GOOD DAN Referring Unavailable CARSON SULLIVAN Primary Care Unavailable Aden Baca Admitting Unavailable Aden Baca Attending Unavailable Carson Sullivan Care Unavailable CARSON SULLIVAN Referring Unavailable CARSON SULLIVAN Primary Care Unavailable NI, GOOD L Referring Unavailable FURLONG, CARSON G Primary Care Unavailable EDGAR, YULIA Martinez Attending Unavailable YULIA HERNÁNDEZ Attending Unavailable EDGAR, YULIA L Attending Unavailable EDGAR, YULIA L Attending Unavailable Vinicio CANADA, Diamond Temple Attending Unavailable Vinicio CANADA, Diamond Temple Attending Unavailable Furlong DO, Carson G Primary Care Provider [phone] FURLONG, CARSON G Attending Unavailable FURLONG, CARSON [...] sources) hydroCHLOROthiazide; Translations: [HYDROCHLOROTHIAZIDE] Drug Allergy Itching [facility] Repository (1 source) Sulfonamides (Antibiotic) Drug allergy (disorder) [facility] [place] Repository (3 sources) HMG-CoA reductase inhibitor Drug Allergy 024 [facility] (3 sources) hydroCHLOROthiazide Drug Allergy Itching [facility] (6 sources) nickel sulfate; Translations: [NICKEL] Drug Allergy 023 Rash [facility] (20 sources) Sulfonamides (Antibiotic) Drug Intolerance Photosensitivity [facility] (20 sources) Hmg-Coa Reductase Inhibitors (Statins); Translations: [[id number] REDUCTASE INHIBITORS] Propensity to adverse reactions to drug (disorder) pain [facility] Repository (3 sources) Sulfonamides (Antibiotic); Translations: [SULFA (SULFONAMIDE ANTIBIOTICS)] Propensity to adverse reactions to drug (disorder) [facility] Repository (1 source) hydroCHLOROthiazide Drug Allergy [facility] Repository (9 sources) DULoxetine; Translations: [DULOXETINE] Drug Allergy Other (See Comments) [facility] (20 sources) nickel Drug Allergy Rash [facility] Medications Current Medications Medication Drug Class(es) Dates Sig (Normalized) Sig (Original) acetaminophen 325 mg / oxyCODONE hydrochloride 5 mg oral tablet (20 sources) Opioid Agonist Start: 07-03-2023 End: 04-09-2024 oxyCODONE-acetaminoph en (PERCOCET) 5-325 mg per tablet Indications: Postlaminectomy syndrome, not elsewhere classified Take 1 tablet by mouth every 6 (six) hours as needed for pain for up to 30 days. Max Daily Amount: 4 tablets 120 tablet 09/27/2023 10/27/2023 Active take 1 tablet by nabeel th every six hours oxyCODONE-Acetaminophen 5-325 MG 1 table t as needed Orally every 6 hrs Active alendronic acid 70 mg oral tablet (5 sources) Bisphosphonate Start: 04-09-2024 take 1 tablet by mouth every week Alendronate (Fosamax) 70 mg tablet Active 70 MG PO every week April 09, 2024 12:00am Start: 02-29-2024 take 1 tablet by nabeel th in the morning alendronate (FOSAMAX) 70 mg [...] 1000 MG PO Daily February 07, 2018 12:00am ascorbic acid, v itamin C, (VITAMIN C) [...] 81 MG PO Daily February 07, 2018 12:00am take 1 tablet by nabeel every twenty-four hours Aspirin 81 MG 1 tablet Orally Once a day for 30 day(s) Active B Xqdtaxq-Bfvthh-QW (Super B-Complex) tablet (3 sources) B Complex-Biotin [...] mg / cholecalciferol 200 unt oral capsule (2 sources) Vitamin D Start: 02-07-2018 take 1 tablet by mouth once daily Calcium Carbonate-Vitamin D3 (Calcium 600 + D(3)) 600 mg calcium- 200 unit Capsule Active 1 TAB PO Daily February 07, 2018 12:00am chymimv-joleozbqv-bjjs 333-133-5 MG per tablet (3 sources) calcium-magnesiu m-zinc 333-133-5 MG per tablet every 8 (eight) hours 0 Active Centrum Silver - (1 source) Centrum Silver - as directed Orally Active cholecalciferol 0.05 mg oral capsule (4 sources) Vitamin D Start: 02-07-2018 take 1 capsule by mouth once daily Cholecalciferol (Vitamin D3) (Vitamin D3) 2,000 unit Capsule Active 2000 UNIT PO Daily February 07, 2018 12:00am take 1 capsule by mo [facility] every twenty-four hours Vitamin D3 50 MCG (1999 UT) 1 capsule Orally Once a day Active docosahexaenoic acid 120 mg / eicosapentaenoic acid 180 mg oral capsule (3 sources) omega-3 (fish oi l) 1000 MG capsule 1 capsule 1 (one) time each day at the same time 0 Active fluticasone propionate 0.05 mg/actuat metered dose nasal spray (20 sources) Corticosteroid Start: take 1 spray(s) nasal [...] day for 30 day(s) Active lactobacillus acidophilus [id number] unt oral capsule (20 sources) Lactobacillus acidophilus [...] day(s) Active lidocaine 0.05 mg/mg medicated patch (3 sources) Antiarrhythmic, Amide Local Anesthetic Start: 03-12-2024 apply 1 dose transdermal route once daily as needed Lidocaine 5 % adhesive patch,medicated Active PATCH TRANSDERML Daily as needed April 09, 2024 12:00am lisinopril 40 mg oral tablet (20 sources) Angiotensin Converting Enzyme Inhibitor Start: 09-29-2022 End: 09-16-2023 take 1 tablet by mouth once daily lisinopriL (PRINIVIL,ZESTRIL) 40 mg tablet take 1 tablet by mouth once daily 90 tablet 3 09/16/2023 Active loratadine 10 mg oral tablet (20 sources) Start: 02-07-2018 End: 03-30-2023 take 1 tablet by mouth once daily as needed Loratadine 10 mg tablet Active 10 MG PO Daily as needed for Sinus Symptoms February 07, 2018 12:00am End: 03-12-2024 take 1 tablet by mouth [...] Active Start: 02-07-2018 End: 2023 take 1 tablet by mouth at bedtime as needed for sleep Lorazepam 1 mg Tablet Discontinued 1 MG PO Bedtime as needed for Sleep February 07, 2018 12:00am 2023 9:11am lutein 10 mg oral tablet (20 sources) Start: 04-09-2024 take 2 tablets by mouth once daily Lutein 10 mg tablet Active 20 MG PO Daily April 09, 2024 11:00am give with meal/snack Start: 10-24-2023 End: 04-09-2024 take 1 tablet by mouth once daily Lutein 10 mg tablet Discontinued 10 MG PO Daily October 23, 2023 11:00pm April 09, 2024 11:04am give with meal/snack Start: 02-07-2018 End: 10-24-2023 take 1 capsule by mouth once daily Lutein 6 mg Capsule Discontinued 6 MG PO Daily February 07, 2018 12:00am October 24, 2023 9:56am 24 hr metoprolol succinate 25 mg extended release oral tablet (20 sources) beta-Adrenergic Akhil Start: 04-23-2024 take 1 tablet by mouth every twenty-four hours in the morning metoprolol succinate XL (TOPROL XL) 25 mg 24 hr tablet Indications: Essential hypertension TAKE 1 TABLET BY MOUTH IN THE MORNING 180 tablet 1 04/23/2024 Active Start: 10-24-2023 take 25 mg by mouth once daily Metoprolol Succinate Active 25 MG PO Daily October 24, 2023 12:00am Start: 10-28-2022 End: 04-23-2024 take 1 tablet by mouth once daily in the morning metoprolol succinate XL (TOPROL XL) 25 mg 24 hr tablet Indications: Essential hypertension take 1 tablet by mouth every morning 90 tablet 1 10/07/2023 04/23/2024 Discontinued Start: 10-28-2022 take 1 tablet by nabeel [...] mouth in the morning. 0 05/02/2022 Active Multivitamin (Daily Multi-Vitamin) tablet (1 source) Start: 04-09-2024 take 1 tablet by mouth once daily Multivitamin (Daily Multi-Vitamin) tablet Active 1 TAB PO Daily April 09, 2024 12:00am ai-cqh-bruan-calcium carb-K1 400 mcg-500 mg calcium-20 mcg tablet (20 sources) Start: 05-02-2022 take 1 tablet by mouth once in the morning sd-tuf-tbrrd-calcium carb-K1 400 mcg-500 mg calcium-20 mcg tablet Take 1 tablet by mouth in the morning. 90 tablet 05/02/2022 Active Start: 05-02-2022 take 1 tablet by nabeel th once in the morning pn-mke-jawch-calcium carb-K1 400 mcg-500 mg calcium-20 mcg tablet Take 1 tablet by mouth in the morning. 90 tablet 0 05/02/2022 Active naloxone hydrochloride 40 mg/ml nasal spray (16 sources) Opioid Antagonist naloxone (NARC AN) 4 mg/actuation spray,non-aerosol nasal spray Administer 1 spray (4 mg total) into each nostril as needed. 1 spray Q2-3 minutes as needed Active naloxone (NARCAN) 4 mg/actuation spray,non-aerosol nasal spray (18 sources) naloxone (NARCAN ) 4 mg/actuation spray,non-aerosol nasal spray Administer 1 spray (4 mg total) into each nostril as needed. 1 spray Q2-3 minutes as needed Active 24 hr nicotine 0.875 mg/hr transdermal system (20 sources) Cholinergic Nicotinic Agonist Start: apply 1 dose transdermal route once daily nicotine (NICODERM CQ) 21 mg/[address] 1 patch on the skin daily. 30 patch 1 04/28/2023 Active qv3-aod-kvx-fish-kri l-lut-zeax (MEGARED ADV TOTAL BODY REFRESH) [phone] mg capsule (20 sources) xn3-dpj-hrl-fish -kril-l ut-zeax (MEGARED ADV TOTAL BODY REFRESH) [phone] mg capsule Take by mouth. Active Empire 3 1000 MG (4 sources) take 1 capsule by mouth once daily Empire 3 1000 MG 1 capsule Orally Once a day for 30 day(s) Active omega-3 acid ethyl esters (fci) 1000 mg oral capsule (2 sources) Start: take 1 capsule by mouth once daily Empire-3 Acid Ethyl Esters 1 gram Capsule Active 1000 MG PO Daily February 07, 2018 12:00am omeprazole 20 mg delayed release oral capsule [...] Active oxyCODONE hydrochloride 5 mg oral tablet (13 sources) Opioid Agonist Start: 12-26-2023 take 1 tablet by mouth five times daily as needed for pain oxyCODONE (ROXICODONE) 5 mg immediate release tablet TAKE 1 TABLET BY MOUTH FIVE TIMES DAILY NEEDED FOR PAIN 12/26/2023 Active Start: 02-15-2018 End: 2023 take 1 tablet by mouth once daily as needed Oxycodone (Roxicodone) 5 mg Tablet Discontinued 5 MG PO Q4H as needed for Pain 60 14 February 15, 2018 2023 9:12am Do not exceed 5 tablets/day. Take as directed above Start: 02-07-2018 End: 02-15-2018 take 5 tablets by mouth once daily as needed for pain Oxycodone 15 mg tablet Discontinued 15 MG PO As Directed as needed for pain management February 07, 2018 12:00am February 15, 2018 7:52am May take up to 5 tabs daily take 0.5 tablet by m outh every six hours oxyCODONE HCl 30 MG 0.5 tablet as needed Orally every 6 hrs 15 mg Not-Taking polyethylene glycol 3350 89850 mg powder for oral solution (20 sources) Osmotic Laxative Start: 02-07-2018 End: 04-09-2024 Polyethylene Glycol 3350 (Miralax) 17 gram powder in packet Active 17 GM PO Daily as needed for constipation April 09, 2024 11:00am Mix with 8 ounces of fluid Polyethylene [...] check* Not-Taking predniSONE 20 mg oral tablet (5 sources) Start: 04-28-2023 End: 05-05-2023 take 1 tablet by mouth in the morning, then take 1 tablet by mouth at bedtime predniSONE (DELTASONE) 20 mg tablet Take 1 tablet (20 mg total) by mouth in the morning and 1 tablet (20 mg total) before bedtime. Do all this for 7 days. 14 tablet 0 04/28/2023 05/05/2023 Active Start: 02-15-2018 End: 04-09-2024 Prednisone 10 mg tablets,dos e pack Discontinued 1 dose pk PO per package directions February 15, 2018 12:00am April 09, 2024 11:01am take 4 tabs for 3 days then take 3 tabs for 3 days then take 2 tabs for 3 days then take 1 tab for 3 days Start: 02-15-2018 Prednisone Act iggy 1 dose pk PO per package directions February 15, 2018 1:00am take 4 tabs for 3 days then take 3 tabs for 3 days then take 2 tabs for 3 days then take 1 tab for 3 days pseudoephedrine hydrochloride 30 mg oral tablet (8 sources) alpha-Adrenergic Agonist take 2 tablets by mouth every six hours as needed pseudoephedrine (SUDAFED) 30 mg tablet 2 tablets as needed Orally every 6 hrs Active rosuvastatin calcium 5 mg oral tablet (8 sources) HMG-CoA Reductase Inhibitor Start: 2023 take 1 tablet by mouth in the morning rosuvastatin (CRESTOR) 5 mg tablet Take 1 tablet (5 mg total) by mouth in the morning. 30 tablet 5 12/28/2023 Active saccharomyces boulardii 250 mg oral capsule (6 sources) Start: 2023 take 1 capsule by mouth once daily Saccharomyces Boulardii 250 mg capsule Active 250 MG PO Daily October 23, 2023 11:00pm take 1 capsule by mo ut every twenty-four hours Probiotic 250 MG 1 capsule Orally once a day for 30 days Active take 1 capsule by mouth every tw elve hours Probiotic 250 MG 1 capsule Orally Twice a day for 30 day(s) Active Super B-Complex - (4 sources) Super B-Complex - as directed Orally Active Super B-Complex - as directed Orally Not-Taking traZODone hydrochloride 100 mg oral tablet (10 sources) Serotonin Reuptake Inhibitor Start: 12-28-2023 End: 03-12-2024 take 1 tablet by mouth once daily as needed for sleep traZODone (DESYREL) 100 mg tablet Take 1 tablet (100 mg total) by mouth nightly as needed for sleep. 03/12/2024 Active ubidecarenone 50 mg oral capsule (2 sources) Start: 02-07-2018 Coenzyme Q10 ( Co Q-10) 50 mg Capsule Active 50 MG PO Daily February 07, 2018 12:00am Vitamin B Complex (1 source) Start: 10-24-2023 take 1 tablet by mouth once daily Vitamin B Complex Active 1 TAB PO Daily October 24, 2023 12:00am Vitamin B Complex tablet (1 source) Start: 10-24-2023 take 1 tablet by mouth once daily Vitamin B Complex tablet Active 1 TAB PO Daily October 23, 2023 11:00pm vitamin e 180 mg oral capsule (20 sources) Start: 02-07-2018 take 1 capsule by mouth once daily Vitamin E 400 unit Capsule Active 400 UNIT PO Daily February 07, 2018 12:00am vitamin E 400 un its capsule Active [...] Amount: 4 tablets 120 tablet 0 05/02/2023 Active Start: 04-08-2023 HYDROcodone-ac etaminophen (NORCO) 7.5-325 mg [...] (Reorder) Vicodin 7.5 mg P RN Active benzonatate 100 mg oral capsule (17 sources) Non-narcotic Antitussive Start: 02-07-2018 End: 10-24-2023 take 1 capsule by mouth three times daily as needed for cough benzonatate (TESSALON PERLES) 100 mg capsule Take 1 capsule (100 mg total) by mouth 3 (three) times a day as needed for cough. 30 capsule 10/20/2022 06/28/2023 Discontinued (Therapy completed) take [address] [facility] three times daily as needed Benzonatate 200 MG 1 capsule Orally Thre e times a day as needed for 30 days Not-Taking cephalexin 500 mg oral capsule (2 sources) Cephalosporin Antibacterial Start: 02-15-2018 End: 2023 take 1 capsule by mouth every eight hours Cephalexin (Keflex) 500 mg capsule Discontinued 500 MG PO Q8H 15 February 15, 2018 12:00am 2023 9:10am Co Q-10 50 MG (1 source) take 1 capsule by mouth once daily Co Q-10 50 MG 1 capsule with a meal Orally Once a day for 30 day(s) Not-Taking cyclobenzaprine hydrochloride 10 mg oral tablet (2 sources) Muscle Relaxant Start: 02-15-2018 End: 2023 take 1 tablet by mouth three times daily as needed for muscle spasms Cyclobenzaprine 10 mg tablet Discontinued 10 MG PO Three times daily as needed for back spasms 50 February 15, 2018 12:00am 2023 9:11am docusate sodium 100 mg oral tablet (6 sources) Start: 02-07-2018 End: 2023 take 1 tablet by mouth once daily as needed for constipation Docusate Sodium 100 mg Tablet Discontinued 100 MG PO Daily as needed for Constipation February 07, 2018 12:00am 2023 9:11am DULoxetine 60 mg delayed release oral capsule (19 sources) Serotonin and Norepinephrine Reuptake Inhibitor Start: 09-26-2023 End: 02-04-2025 take 1 capsule by mouth once daily Duloxetine (Cymbalta) 60 mg capsule,delayed release(DR/EC) Discontinued 60 MG PO Daily October 23, 2023 11:00pm April 09, 2024 10:59am Start: 06-28-2023 End: 09-26-2023 take 1 capsule by mouth once daily in the morning DULoxetine (CYMBALTA) 30 mg capsule Indications: Fibromyalgia take 1 capsule by mouth every morning 30 capsule 1 09/10/2023 09/26/2023 Discontinued ferrous gluconate 240 mg oral tablet (2 sources) Start: 02-07-2018 End: 2023 take 1 tablet by mouth once daily Ferrous Gluconate (Iron High Potency) 240 mg (27 mg iron) Tablet Discontinued 1 TAB PO Daily February 07, 2018 12:00am 2023 9:11am furosemide 20 mg oral tablet (2 sources) Loop Diuretic Start: 02-07-2018 End: 2023 take 1 tablet by mouth once daily as needed for edema Furosemide 20 mg tablet Discontinued 20 MG PO Daily as needed for Edema February 07, 2018 12:00am 2023 9:11am gabapentin 300 mg oral capsule (5 sources) Anti-epileptic Agent Start: 02-07-2018 End: 2023 take 1 capsule by mouth twice daily Gabapentin 300 mg capsule Discontinued 300 MG PO Twice Daily at 0700 and 1400 February 07, 2018 12:00am 2023 9:11am Start: 02-07-2018 End: 2023 take 2 capsules by mouth once daily at bedtime Gabapentin 300 mg capsule Discontinued 600 MG PO Daily at bedtime February 07, 2018 12:00am 2023 9:11am Start: 02-07-2018 End: 2023 take 600 mg by mouth once daily at bedtime Gabapentin Discontinued 600 MG PO Daily at bedtime February 07, 2018 1:00am 2023 10:11am giuseppe root 550 mg oral capsule (3 sources) Start: 02-07-2018 End: 2023 take 1 capsule by mouth once daily Giuseppe (Zingiber Officinalis) 550 mg Capsule Discontinued 550 MG PO Daily February 07, 2018 12:00am 2023 9:11am L.Acidophilus-B.Bifid um,Longum (Probiotic Colon Support) 240 mg (3 billion cell) Capsule (2 sources) Start: 02-07-2018 End: 2023 take 1 capsule by mouth once daily L.Acidophilus-B.Bifidum, Longum (Probiotic Colon Support) 240 mg (3 billion cell) Capsule Discontinued 1 CAP PO Daily February 07, 2018 12:00am 2023 9:11am Start: 02-07-2018 End: 2023 take 1 capsule by mouth once daily L.Acidophilus-B.Bifidum,Longum (Probioti c Colon Support) 240 mg (3 billion cell) Capsule Discontinued 1 CAP PO Daily February 07, 2018 1:00am 2023 10:11am morphine sulfate 15 mg extended release oral tablet (4 sources) Opioid Agonist Start: 02-15-2018 End: 2023 Morphine (Ms Contin) 15 mg t ablet extended release Discontinued 30 MG PO Q12H as needed for pain 56 February 15, 2018 2023 9:12am take w/enough water to swallow whole; do not crush/dissolve/chew/cut/break Start: 02-07-2018 End: 02-15-2018 take 1 tablet by mouth three times daily Morphine 15 mg tablet extended release Discontinued 15 MG PO Three times daily February 07, 2018 12:00am February 15, 2018 7:52am MS Contin 30 MG (1 source) Start: 02-19-2018 take 1 tablet by mouth every twelve hours MS Contin 30 MG 1 tablet Orally every 12 hrs for 7 days *please review for potential _update for e-prescription and drug interaction check* Feb, Not-Taking Udmcdbjv-Cwo-Oljx-Fa -Vit K-Lut (Centrum Silver Women) 8 mg iron-400 mcg-300 mcg Tablet (2 sources) Start: 02-07-2018 End: 10-24-2023 take 1 tablet by mouth once daily Vewvzmdv-Tcs-Jeui-Fa-Vit K-Lut (Centrum Silver Women) 8 mg iron-400 mcg-300 mcg Tablet Discontinued 1 TAB PO Daily February 07, 2018 12:00am October 24, 2023 9:57am Start: 02-07-2018 End: 10-24-2023 take 1 tablet by mouth once daily Dkjmuedu-Ncb-Dipn-Fa-Vit K-Lut (Centrum Silver Women) 8 mg iron-400 mcg-300 mcg Tablet Discontinued 1 TAB PO Daily February 07, 2018 1:00am October 24, 2023 10:57am 24 hr niacin 1000 mg extended release oral tablet (18 sources) Nicotinic Acid Start: 02-07-2018 End: 10-24-2023 take 1 tablet by mouth once daily Niacin 1,000 mg tablet extended release 24 hr Discontinued 1000 MG PO Daily February 07, 2018 12:00am October 24, 2023 9:57am End: 06-28-2023 take 1 tablet by mouth [...] chloride 10 meq extended release oral tablet (14 sources) Start: 02-07-2018 End: 2023 take 1 tablet by mouth twice daily as needed Potassium Chloride 10 mEq tablet extended release Discontinued 10 MEQ PO Twice daily as needed for with lasix February 07, 2018 12:00am 2023 9:12am End: 06-28-2023 potassium chloride (KLOR-CON SPRINKLE) 10 MEQ CR capsule 2 capsules with food Orally Once a day 06/28/2023 Discontinued (Therapy completed) Psyllium (1 source) Psyllium 100 % 1 packet with 8 ounces of liquid as needed Orally Three times a day *please review for potential _update for e-prescription and drug interaction check* Not-Taking sertraline 50 mg oral tablet (18 sources) Serotonin Reuptake Inhibitor Start: 3 End: 4 take 1 tablet by mouth once daily in the morning sertraline (ZOLOFT) 50 mg tablet take 1 tablet by mouth every morning 90 tablet 1 05/01/2023 06/28/2023 Discontinued (Ineffective) Vitamin B Complex (Super B-50 Complex) Capsule (2 sources) Start: 8 End: 4 take 1 capsule by mouth once daily Vitamin B Complex (Super B-50 Complex) Capsule Discontinued 1 CAP PO Daily February 07, 2018 12:00am 2023 9:12am Start: 02-07-2018 End: 2023 take 1 capsule by mouth once daily Vitamin B Complex (Super B-50 Complex) Capsule Discontinued 1 CAP PO Daily February 07, 2018 1:00am 2023 10:12am Vitamin D3 2000 UNIT (1 source) take 1 capsule by mo ut once daily Vitamin D3 2000 UNIT 1 capsule Orally Once a day for 30 day(s) *please review for potential _update for e-prescription and drug interaction check* Not-Taking Vitamin E 400 UNIT (1 source) take 1 capsule by mo uth once daily Vitamin E 400 UNIT 1 capsule Orally Once a day for 30 day(s) Not-Taking Problems Active Problems Problem Classification Problem Date Documented Da te Episodic/Chronic Anxiety disorders (20 sources) Anxiety; Translations: [Anxiety disorder, unspecified] Onset: 11-16-2021 11-16-2021 Chronic Asthma (20 sources) Reactive airway disease; Translations: [Unspecified asthma, uncomplicated] Onset: 11-16-2021 11-16-2021 Chronic Calculus of urinary tract (11 sources) Kidney stone; Translations: [Calculus of kidney] [...] 3a] Onset: 10-19-2022 Deficiency and other anemia (5 sources) Anemia, unspecified; Translations: [Anemia, unspecified] Episodic Deficiency and other anemia (2 sources) Anemia; Translations: [Anemia, unspecified] 10-21-2023 Episodic Disorders of lipid metabolism (20 sources) Hyperlipidemia, unspecified; Translations: [Pure hypercholesterolemia , unspecified] Onset: 10-11-2021 Chronic Esophageal disorders (20 sources) Gastro-esophageal reflux disease without esophagitis; Translations: [Gastroesophageal reflux disease] Onset: 10-11-2021 11-16-2021 Chronic Essential hypertension (20 sources) Essential (primary) hypertension; Translations: [Essential hypertension] Onset: 05-03-2021 2 Chronic Headache; including migraine (20 sources) Migraine; Translations: [Migraine, unspecified, not intractable, without status migrainosus] Onset: 11-16-2021 11-16-2021 Chronic Hypertension with complications and secondary hypertension (20 sources) Hypertensive renal disease; Translations: [Hypertensive chronic kidney disease with stage 1 through stage 4 chronic kidney disease, or unspecified chronic kidney disease] Onset: 03-31-2022 Resolved: 10-19-2022 Chronic Immunizations and screening for infectious disease (2 sources) Encounter for immunization; Translations: [Needs influenza immunization] Onset: 12-28-2023 12-28-2023 Episodic Nutritional deficiencies (20 sources) Vitamin D deficiency; Translations: [Vitamin D deficiency, unspecified] Onset: 11-16-2021 Chronic Osteoarthritis (20 sources) Arthritis of shoulder region joint; Translations: [...] [Other chronic pain] Onset: 03-30-2023 Chronic Other skin disorders (2 sources) Actinic keratosis; [...] other back problems (20 sources) Degeneration of lumbar intervertebral disc; Translations: [Degeneration of lumbar intervertebral disc] Onset: 11-16-2021 09-29-2023 Chronic Substance-related disorders (20 sources) Nicotine dependence, [...] Episodic Fluid and electrolyte disorders (20 sources) Hyponatremia; Translations: [Hypo-osmolality and hyponatremia] Onset: 11-16-2021 10-24-2023 Episodic Mood disorders (20 sources) Mood disorders Onset: 10-10-2023 Resolved: 12-28-2023 12-28-2023 Other bone disease and musculoskeletal deformities (20 [...] source) Shoulder pain Onset: 04-28-2023 Episodic Other non-traumatic joint disorders (1 source) Bilateral chronic pain of upper limbs; Translations: [Pain in right shoulder] 03-30-2023 Episodic Other nutritional; endocrine; and metabolic disorders [...] disc disorders; other back problems (20 sources) Cervicalgia; Translations: [Spinal stenosis of lumbar region] Onset: 09-14-2017 02-15-2023 Episodic Comment on above: Problem List clean-u p per request of Phys. EHR Cmte Results Test Name Value Interpretation Reference Range Facility Erythrocyte distribution wid th Auto (RBC) [Ratio]on 04-02-2024 Erythrocyte distribution wid th (RBC) [Ratio] Erythrocyte distribution width [Ratio] by Automated count 11.0-15.0 [facility] Estimated glomerular filtrat ion rate (GFR) non- Americanon 04-02-2024 GFR/1.73 sq M.predicted rosa m g non-blacks MDRD (S/P/Bld) [Vol rate/Area] Estimated glomerular filtration rate (GFR) non- Low >=60 mL/min/1.7 3m 2 [facility] Hematocrit Auto (Bld) [Volum e fraction]on 04-02-2024 Hematocrit (Bld) [Volume fraction] Hematocrit [Volume Fraction] of Blood by Automated count 36.0-48.0 [facility] Hemoglobin [Mass/volume] in Bloodon 04-02-2024 Hemoglobin (Bld) [Mass/Vol] Hemoglobin [Mass/volume] in Blood 12.0-16.0 [facility] Laboratory - Chemistry and C hemistry - challengeon 04-02-2024 Albumin [Mass/Vol] 3.8 g/dL 3.4-5.0 [facility] Calcium [Mass/Vol] 8.9 mg/dL 8.5-10.1 [facility] Chloride [Moles/Vol] 101 mmol/L 98-107 [facility] CO2 [Moles/Vol] 23.4 mmol/L 21.0-32.0 [facility] Creatinine [Mass/Vol] 1.31 mg/dL High 0.55-1.02 [facility] GFR/1.73 sq M.predicted MDRD (S/P/Bld) [Vol rate/Area] 48 mL/min/{1.73_m2} Low >=60 mL/min/1.7 3m 2 [facility] Glucose [Mass/Vol] 92 mg/dL 74-106 [facility] Magnesium [Mass/Vol] 2.1 mg/dL 1.8-2.4 [facility] Potassium [Moles/Vol] 4.3 mmol/L 3.5-5.1 [facility] Sodium [Moles/Vol] 132 mmol/L Low 136-145 [facility] Urate [Mass/Vol] 4.9 mg/dL 2.6-6.0 [facility] Urea nitrogen [Mass/Vol] 19.0 mg/dL High 7.0-18.0 [facility] Urea nitrogen/Creatinine [Ma ss ratio] 14.5 mg/mg [facility] Bilirubin Ql (U) Negative NEGATIVE [facility] Glucose (U) [Mass/Vol] Negative NEGATIVE Fi [facility] Ketones Ql (U) Negative NEGATIVE [facility] pH (U) 6.0 [pH] 5.0-9.0 [facility] Sodium (U) [Moles/Vol] 72 mmol/L 30-90 [facility] Specific gravity (U) [Rel density] 1.015 1.005-1.02 5 [facility] Urobilinogen Qn (U) 0.2 {Drew'U}/dL 0.2-1.0 [facility] Laboratory - Specimen inform ationon 04-02-2024 Appearance (U) CLEAR CLEAR [facility] Color (U) YELLOW YELLOW [facility] Laboratory - Urinalysison Leukocyte esterase Test stri p Ql (U) Negative NEGATIVE [facility] Nitrite Ql (U) Negative NEGATIVE [facility] Protein (U) [Mass/Vol] 12.3 mg/dL High <=11.9 [facility] Protein Ql (U) Negative NEG/TRACE [facility] Leukocytes [#/volume] correc di for nucleated erythrocytes in Blood by Automated counon 04-02-2024 WBC corrected for nucl RBC A uto (Bld) [#/Vol] Leukocytes [#/volume] corrected for nucleated erythrocytes in Blood by Automated coun 4.0-11.0 [facility] MCH Auto (RBC) [Entitic mass ]on 04-02-2024 MCH (RBC) [Entitic mass] MCH [Entitic mass] by Automated count 26.7-34.0 [facility] MCHC Auto (RBC) [Mass/Vol]on 04-02-2024 MCHC (RBC) [Mass/Vol] MCHC [Mass/volume] by Automated count 29.9-35.2 [facility] MCV Auto (RBC) [Entitic vol] on 04-02-2024 MCV (RBC) [Entitic vol] MCV [Entitic volume] by Automated count 81.0-99.0 [facility] Microalbumin [Mass/volume] i n Urineon 04-02-2024 Albumin DL <= 20 mg/L (U) [Mass/Vol] Microalbumin [Mass/volume] in Urine <=30.0 [facility] No Panel Informationon 04-02 25-Hydroxy Vitamin D Total 41.1 ng/mL [facility] Comment on above: <20 ng/mL Vit D defi cient20-<30 ng/mL Vit D -128 ng/mL Vit D sufficient>100 ng/mL Potential Toxicity Parathyroid Hormone (Intact) 45 pg/mL 15-65 [facility] Comment on above: Performed at: [employer] [place] [address] [id number] Director: Billy Patel PhD, Phone: [phone] Phosphorus Level 3.2 mg/dL 2.6-4.7 [facility] Urine Occult Blood Negative NEGATIVE [facility] Urine Osmolality 432 mOsmol/kg . [facility] Comment on above: 24 hr : 300 - 900 Ra ndom: 50 - 1400 After 12hr fluid restriction: >850Performed at: [facility] [address] [id number] Director: Rick Law MD, Phone: [phone] Urine Random Creatinine 76.79 mg/dL 20.0 0-300. 00 [facility] Platelet mean volume Auto (B ld) [Entitic vol]on 04-02-2024 Platelet mean volume (Bld) [Entitic vol] Platelet mean volume [Entitic volume] in Blood by Automated count 9.5-13.5 [facility] Platelets Auto (Bld) [#/Vol] on 04-02-2024 Platelets (Bld) [#/Vol] Platelets [#/volume] in Blood by Automated count 150-450 [facility] RBC Auto (Bld) [#/Vol]on RBC (Bld) [#/Vol] Erythrocytes [#/volume] in Blood by Automated count Low 4.20-5.40 [facility] Serum or plasma anion gap de terminationon 04-02-2024 Anion gap [Moles/Vol] Serum or plasma anion gap determination [facility] Urine protein/creatinine rat ioon 04-02-2024 Protein/Creatinine (U) [Ratio] Urine protein/creatinin e ratio [facility] Erythrocyte distribution wid th Auto (RBC) [Ratio]on 10-17-2023 Erythrocyte distribution wid th (RBC) [Ratio] 13.5 % 11.0-15.0 [facility] Estimated glomerular filtrat ion rate (GFR) non- Americanon 10-17-2023 GFR/1.73 sq M.predicted rosa m g non-blacks MDRD (S/P/Bld) [Vol rate/Area] 43 mL/min/{1.73_m2} Low >=60 [facility] Globulin Calc (S) [Mass/Vol] on 10-17-2023 Globulin (S) [Mass/Vol] 3.4 g/dL F [facility] Hematocrit Auto (Bld) [Volum e fraction]on 10-17-2023 Hematocrit (Bld) [Volume fraction] 38.7 % 36.0-48.0 [facility] Hemoglobin [Mass/volume] in Bloodon 10-17-2023 Hemoglobin (Bld) [Mass/Vol] 12.8 g/dL 12.0-16. 0 [facility] Laboratory - Chemistry and C hemistry - challengeon 10-17-2023 Albumin [Mass/Vol] 4.0 g/dL 3.4-5.0 [facility] ALP [Catalytic activity/Vol] 94 U/L 46-116 [facility] ALT [Catalytic activity/Vol] 23 U/L 14-59 [facility] AST [Catalytic activity/Vol] 10 U/L Low 15-37 [facility] Bilirubin [Mass/Vol] 0.4 mg/dL 0.2-1.0 [facility] Calcium [Mass/Vol] 9.3 mg/dL 8.5-10.1 [facility] Chloride [Moles/Vol] 96 mmol/L Low 98-107 [facility] CO2 [Moles/Vol] 26.8 mmol/L 21.0-32.0 [facility] Creatinine [Mass/Vol] 1.21 mg/dL High 0.55-1.02 [facility] GFR/1.73 sq M.predicted MDRD (S/P/Bld) [Vol rate/Area] 52 mL/min/{1.73_m2} Low >=60 [facility] Glucose [Mass/Vol] 109 mg/dL High 74-106 [facility] Magnesium [Mass/Vol] 2.0 mg/dL 1.8-2.4 [facility] Potassium [Moles/Vol] 3.7 mmol/L 3.5-5.1 [facility] Protein [Mass/Vol] 7.4 g/dL 6.4-8.2 [facility] Sodium [Moles/Vol] 130 mmol/L Low 136-145 [facility] Urea nitrogen [Mass/Vol] 20.0 mg/dL High 7.0-18.0 [facility] Urea nitrogen/Creatinine [Ma ss ratio] 16.5 mg/mg [facility] Bilirubin Ql (U) Negative NEGATIVE [facility] Glucose (U) [Mass/Vol] Negative NEGATIVE [facility] Ketones Ql (U) TRACE mg/dL Abnormal NEGATIVE [facility] pH (U) 6.0 [pH] 5.0-9.0 [facility] Specific gravity (U) [Rel density] 1.015 1.005-1.02 5 [facility] Urobilinogen Qn (U) 0.2 {Drew'U}/dL 0.2-1.0 [facility] Laboratory - Specimen inform ationon 10-17-2023 Appearance (U) SL CLOUDY CLEAR [facility] Color (U) YELLOW YELLOW [facility] Laboratory - Urinalysison Leukocyte esterase Test stri p Ql (U) Negative NEGATIVE [facility] Nitrite Ql (U) Negative NEGATIVE [facility] Protein (U) [Mass/Vol] 23.3 mg/dL High <=11.9 [facility] Protein Ql (U) Negative NEG/TRACE [facility] Leukocytes [#/volume] correc di for nucleated erythrocytes in Blood by Automated counon 10-17-2023 WBC corrected for nucl RBC A uto (Bld) [#/Vol] 6.7 10 3/uL 4.0-11.0 [facility] MCH Auto (RBC) [Entitic mass ]on 10-17-2023 MCH (RBC) [Entitic mass] 32.7 pg 26.7-34.0 [facility] MCHC Auto (RBC) [Mass/Vol]on 10-17-2023 MCHC (RBC) [Mass/Vol] 33.1 g/dL 29.9-35.2 [facility] MCV Auto (RBC) [Entitic vol] on 10-17-2023 MCV (RBC) [Entitic vol] 98.7 fL 81.0-99.0 F [facility] No Panel Informationon 10-16 25-Hydroxy Vitamin D Total 47.1 ng/mL [facility] Comment on above: <20 ng/mL Vit D defi cient20-<30 ng/mL Vit D [id number] ng/mL Vit D sufficient>100 ng/mL Potential Toxicity Parathyroid Hormone (Intact) 24 pg/mL 15-65 [facility] Comment on above: Performed at: - [address] [id number] Director: Billy Patel PhD, Phone: [phone] Urine Occult Blood Negative NEGATIVE [facility] Urine Random Creatinine 116.48 mg/dL 20.0 0-300. 00 [facility] Platelet mean volume Auto (B ld) [Entitic vol]on 10-17-2023 Platelet mean volume (Bld) [Entitic vol] 9.2 fL Low 9.5-13.5 [facility] Platelets Auto (Bld) [#/Vol] on 10-17-2023 Platelets (Bld) [#/Vol] 364 10 3/uL 150-450 [facility] RBC Auto (Bld) [#/Vol]on RBC (Bld) [#/Vol] 3.92 10 6/uL Low 4.20-5.40 [facility] Serum or plasma albumin/glob ulin mass ratioon 10-17-2023 Albumin/Globulin [Mass ratio] 1.2 {ratio} [facility] Serum or plasma anion gap de terminationon 10-17-2023 Anion gap [Moles/Vol] 10.9 mmol/L [facility] Urine protein/creatinine rat ioon 10-17-2023 Protein/Creatinine (U) [Ratio] 0.20 [facility] BASIC METABOLIC PANLon 06-27 Anion gap [Moles/Vol] 13 mmol/L Normal 5-15 [facility] Comment on above: Performed By: #### Becki MEJIA, THYR #### [facility] ([id number]) [address], [address] [place] [address] Calcium [Mass/Vol] 9.9 mg/dL Normal 8.5-10.5 [facility] Comment on above: Performed By: #### Becki MEJIA, THYR #### [facility] ([id number]) [address], [address] [place] [address] Chloride [Moles/Vol] 100 mmol/L Normal 98-109 [facility] Comment on above: Performed By: #### Becki MEJIA, THYR #### [facility] ([id number]) [address], [address] [place] [address] CO2 [Moles/Vol] 23 mmol/L Normal 22-32 [facility] Comment on above: Performed By: #### Becki MEJIA, THYR #### [facility] ([id number]) [address], [address] [place] [address] Creatinine [Mass/Vol] 1.20 mg/dL High 0.40-1.00 [facility] Comment on above: Result Comment: METH OD TRACEABLE TO IDMS STANDARD Performed By: #### Becki MEJIA, THYR #### [facility] ([id number]) [address] [address] [place] [address] GFR/1.73 sq M.predicted rosa m g non-blacks MDRD (S/P/Bld) [Vol rate/Area] 47 mL/min/{1.73_m2} Low >59 [facility] Comment on above: Result Comment: Reported eGFR is based on the CKD-EPI 2020 equation that does not use a race coefficient. Performed By: #### Becki MEJIA, THYR #### [facility] ([id number]) [address] [address] [place] [address] Glucose [Mass/Vol] 86 mg/dL Normal 65-99 [facility] Comment on above: Performed By: #### Becki MEJIA, THYR #### [facility] ([id number]) [address] [address] Potassium [Moles/Vol] 4.3 mmol/L Normal 3.5-5.0 [facility] Comment on above: Performed By: #### Becki MEJIA, THYR #### [facility] ([id number]) [address] [facility] [address] [place] [address] Sodium [Moles/Vol] 136 mmol/L Normal 134-146 [facility] Comment on above: Performed By: #### Becki MEJIA, THYR #### [facility] ([id number]) [address] [address] Urea nitrogen [Mass/Vol] 26 mg/dL Normal 5-27 [facility] Comment on above: Performed By: #### Becki MEJIA, THYR #### [facility] ([id number]) [address] [address] Basic Metabolic Panelon 06-05 Anion gap [Moles/Vol] 13 mmol/L 5 - 15 mmol/L [facility] Calcium [Mass/Vol] 9.9 mg/dL 8.5 - 10. 5 mg/dL [facility] Chloride [Moles/Vol] 100 mmol/L 98 - 10 9 mmol/L [facility] CO2 [Moles/Vol] 23 mmol/L 22 - 32 mmol/L [facility] Creatinine [Mass/Vol] 1.20 mg/dL High 0.40 - 1.00 mg/dL [facility] Comment on above: METHOD TRACEABLE TO [facility] STANDARD eGFR (CKD-EPI)non-race dependent 47 Low - PINF [facility] Comment on above: Reported eGFR is based on the CKD-EPI 2020 equation that does not use a race coefficient. Glucose [Mass/Vol] 86 mg/dL 65 - 99 mg/dL [facility] Interpretation and review of laboratory results Abnormal [facility] Potassium [Moles/Vol] 4.3 mmol/L 3.5 - 5.0 mmol/L [facility] Sodium [Moles/Vol] 136 mmol/L 134 - 146 mmol/L [facility] Urea nitrogen [Mass/Vol] 26 mg/dL 5 - 27 mg/dL [facility] THYROID PROFILEon 06-28-2023 Free T4 [Mass/Vol] 1.14 ng/dL Normal 0.61-1.60 [facility] Comment on above: Performed By: #### B ROBERTO, THYR #### [facility] ([id number]) [address] [facility] [facility] [address] [place] [address] TSH 0.81 uIU/mL Normal 0.49-4.67 [facility] Comment on above: Performed By: #### B MP, THYR #### [facility] ([id number]) [address] [facility] [place] [address] Thyroid profile includes TSH FT4on 06-28-2023 Free T4 [Mass/Vol] 1.14 ng/dL 0.61 - 1.60 ng/dL [facility] TSH Qn 0.81 m[IU]/L [facility] XR shoulder LT min 2V*on XR shoulder LT min 2V* [facility] [place] [address] [place] [address] XRay Report Signed Patient: Mike Tellez MR#: [id number] : 1945 Acct:[id number] Age/Sex: 78 / F ADM Date: 05/11/23 Loc: [facility] Room: Type: [facility] Attending Dr: Aden Baca DO Copies [...] Justin Lucas M.D.05/11/2023 2:24 PM Dictation Location: [place] [address] Transcribed By: [facility] 05/11/23 142 Dictated By: Justin Lucas DO 05/11/23 1422 Signed By: 05/11/23 1424 [place] No Panel Informationon 04-07 [facility] DRUG SCREEN, URINEon 024 AMPHETAMINE/METHAMP Negative Normal NEG [facility] Comment on above: Result Comment: AMPH /METH screening cut off = 1000 ng/mL Performed By: #### D HOLT #### [facility] ([id number]) [address] [place] [address] BARBITURATES Negative Normal NEG [facility] Comment on above: Result Comment: Rhonda iturates screening cut off value = 200 ng/mL Performed By: #### D HOLT #### [facility] ([id number]) [address] [facility] [place] [address] BENZODIAZEPINES Negative Normal NEG [facility] Comment on above: Result Comment: Guillermo odiazepines screening cut off value = 200 ng/mL Performed By: #### D HOLT #### [facility] ([id number]) [address] [place] [address] CANNABINOIDS Negative Normal NEG [facility] Comment on above: Result Comment: Shanita abinoids/THC screening cut off value = 50 ng/mL Performed By: #### D HOLT #### [facility] ([id number]) [address] [place] [address] COCAINE METABOLITE Negative Normal NEG [facility] Comment on above: Result Comment: Coca ine screening cut off value = 300 ng/mL Performed By: #### D HOLT #### [facility] ([id number]) [address] [place] [address] ECSTASY Negative Normal NEG [facility] Comment on above: Result Comment: Ecst asy screening cut off value = 500 ng/mL This report is intended for use in clinical monitoring or management of patients. Performed By: #### D HOLT #### [facility] ([id number]) [address] [place] [address] METHADONE Negative Normal [facility] Comment on above: Result Comment: Meth adone screening cut off value = 300 ng/mL. Performed By: #### D HOLT #### [facility] ([id number]) [address] [place] [address] OPIATES Positive Abnormal NEG [facility] Comment on above: Result Comment: Conf irmation available upon request. Opiates screening cut off value = 300 ng/mL NOTE: This test is used for the detection of codeine, hydrocodone (>1000 ng/mL), morphine and hydromorphone (>900 ng/mL) in urine. Performed By: #### D HOLT #### [facility] ([id number]) [address] [place] [address] OXYCODONE Negative Normal NEG [facility] Comment on above: Result Comment: Oxyc odone screening cut off value = 300 ng/mL NOTE: This test is used for the detection of oxycodone and oxymorphone in urine. Performed By: #### D HOLT #### [facility] ([id number]) [address] [place] [address] PHENCYCLIDINE Negative Normal NEG [facility] Comment on above: Result Comment: Phen cyclidine screening cut off value = 25 ng/mL Performed By: #### D HOLT #### [facility] ([id number]) [address] [place] [address] Drug Screen, Urineon 024 Amphetamines Screen method >1000 ng/mL Ql (U) Negative Negative^N [facility] Comment on above: AMPH/METH screening cut off = 1000 ng/mL Barbiturates Screen Ql (U) Negative N egative^N [facility] Comment on above: Barbiturates screeni ng cut off value = 200 ng/mL Benzodiazepines Ql (U) Negative Negat iggy^N [facility] Comment on above: Benzodiazepines scre ening cut off value = 200 ng/mL Cocaine Ql (U) Negative Negative^N [facility] Comment on above: Cocaine screening cu t off value = 300 ng/mL Interpretation and review of laboratory results Abnormal [facility] Methadone Screen Ql (U) Negative Nega tive^N [facility] Comment on above: Methadone screening cut off value = 300 ng/mL. Methylenedioxymethamphetamin e Screen Ql (U) Negative Negative^N [facility] Comment on above: Ecstasy screening cu t off value = 500 ng/mL This report is intended for use in clinical monitoring or management of patients. Opiates Screen Ql (U) Positive Abnormal Negati ve^N [facility] Comment on above: Confirmation availab le upon request. Opiates screening cut off value = 300 ng/mL NOTE: This test is used for the detection of codeine, hydrocodone (>1000 ng/mL), morphine and hydromorphone (>900 ng/mL) in urine. oxyCODONE Ql (U) Negative Negative^N egative [facility] Comment on above: Oxycodone screening cut off value = 300 ng/mL NOTE: This test is used for the detection of oxycodone and oxymorphone in urine. Phencyclidine Screen method >25 ng/mL Ql (U) Negative Negative^N ative [facility] Comment on above: Phencyclidine screen ing cut off value = 25 ng/mL Tetrahydrocannabinol Screen method >50 ng/mL Ql (U) Negative Negative^N egative [facility] Comment on above: Cannabinoids/THC scr eening cut off value = 50 ng/mL [facility] PTH INTACTon 06-02-2022 PTH, Intact 14 pg/mL Critically low 15-65 [facility] Comment on above: Performed By: #### P THINT ####[facility] [address] [place], [place] [address]Dr. Ashok Bailey HEMOGRAM AND PLATELon 2022 Hematocrit (Bld) [Volume fraction] 32.0 % Critically low 36.0-48.0 [facility] Comment on above: Performed By: #### H H ####[facility] [address] [place], [place] [address]Dr. Ashok Bailey Hemoglobin (Bld) [Mass/Vol] 10.6 g/dL Critically low 12.0 -16.0 [facility] Comment on above: Performed By: #### H H ####[facility] [address] [place], [place] [address]Dr. Ashok Bailey MCH (RBC) [Entitic mass] 31.4 pg Normal 26.7-34.0 [facility] Comment on above: Performed By: #### H H ####[facility] [id number] [place], [place] [address]Dr. Ashok Bailey MCHC (RBC) [Mass/Vol] 33.1 g/dL Normal 29.9-35.2 [facility] Comment on above: Performed By: #### H H ####[facility] [id number] [place] [id number]. Ashok Bailey MCV (RBC) [Entitic vol] 94.7 fL Normal 81.0-99.0 [facility] Comment on above: Performed By: #### H H ####[facility] [address] [place] [id number]. Ashok Bailey PLT 345 103/ul Normal 150-450 [facility] Comment on above: Performed By: #### H H ####[facility] [address] [place] [id number]. Ashok Bailey RBC 3.38 106/ul Critically low 4.20-5.40 [facility] Comment on above: Performed By: #### H H ####[facility] [address] [place] [address]Dr. Ashok Bailey WBC 8.4 103/ul Normal 4.0-11.0 [facility] Comment on above: Performed By: #### H H ####[facility] [address] [place] [address]Dr. Ashok Bailey MAGNESIUMon 06-01-2022 Magnesium [Mass/Vol] 1.8 mg/dL Normal 1.8-2.4 [facility] Comment on above: Performed By: #### C MP, URIC, MG, PHOS ####[facility] [address] [place] [address]Dr. Ashok Bailey PHOSPHORUSon 06-01-2022 Phosphate [Mass/Vol] 4.0 mg/dL Normal 2.6-4.7 [facility] Comment on above: Performed By: #### C MP, URIC, MG, PHOS ####[facility] [address] [place] [address]Dr. Ashok Leo PROF 14(COMP METB)on 023 Albumin [Mass/Vol] 3.8 g/dL Normal 3.4-5.0 [facility] Comment on above: Performed By: #### C MP, URIC, MG, PHOS ####[facility] [address] [place] [address]Dr. Ashok Bailey Albumin/Globulin [Mass ratio] 1.1 {ratio} Normal [facility] Comment on above: Performed By: #### C MP, URIC, MG, PHOS ####[facility] [facility] [address] [address]Dr. Ashok Bailey ALP [Catalytic activity/Vol] 96 U/L Normal 46-116 [facility] Comment on above: Performed By: #### C MP, URIC, MG, PHOS ####[facility] [address] [address]Dr. Ashok Bailey ALT [Catalytic activity/Vol] 17 U/L Normal 14-59 [facility] Comment on above: Performed By: #### C MP, URIC, MG, PHOS ####[facility] [address] [place], [place] [address]Dr. Neelamandrew Bailey Anion gap [Moles/Vol] 15.4 mmol/L Normal [facility] Comment on above: Performed By: #### C MP, URIC, MG, PHOS ####[facility] [address] [place], [place] [address]Dr. Ashok Bailey AST [Catalytic activity/Vol] 15 U/L Normal 15-37 [facility] Comment on above: Performed By: #### C MP, URIC, MG, PHOS ####[facility] [address] [place], [place] [address]Dr. Neelamandrew Bailey Bilirubin [Mass/Vol] 0.3 mg/dL Normal 0.2-1.0 [facility] Comment on above: Performed By: #### C MP, URIC, MG, PHOS ####[facility] [address] [place], [place] [address]Dr. Ashok Bailey Calcium [Mass/Vol] 9.1 mg/dL Normal 8.5-10.1 [facility] Comment on above: Performed By: #### C MP, URIC, MG, PHOS ####[facility] [address] [place], [place] [address]Dr. Ashok Bailey Chloride [Moles/Vol] 103 mmol/L Normal 98-107 [facility] Comment on above: Performed By: #### C MP, URIC, MG, PHOS ####[facility] [address] [address]Dr. Ashok Bailey CO2 [Moles/Vol] 24.9 mmol/L Normal 21.0-32.0 [facility] Comment on above: Performed By: #### C MP, URIC, MG, PHOS ####[facility] [address] [address]Dr. Ashok Bailey Creatinine [Mass/Vol] 1.35 mg/dL Critically high 0.55-1.02 [facility] Comment on above: Performed By: #### C MP, URIC, MG, PHOS ####[facility] [address] [place], [place] [address]Dr. Ashok Bailey EGFR-AF RUSSIAN 46 mL/min/1.73m2 Critically low >=60 [facility] Comment on above: Performed By: #### C MP, URIC, MG, PHOS ####[facility] [address] [place], [place] [address]Dr. Ashok Bailey EGFR-NON AF RUSSIAN 38 mL/min/1.73m2 Critically low >=60 [facility] Comment on above: Performed By: #### C MP, URIC, MG, PHOS ####[facility] [address] [address]Dr. Ashok Bailey Globulin (S) [Mass/Vol] 3.4 g/dL Normal [facility] Comment on above: Performed By: #### C MP, URIC, MG, PHOS ####[facility] [address] [address]Dr. Ashok Bailey Glucose [Mass/Vol] 86 mg/dL Normal 74-106 [facility] Comment on above: Performed By: #### C MP, URIC, MG, PHOS ####[facility] [address]vxk[address] [address]Dr. Ashok Bailey Potassium [Moles/Vol] 4.3 mmol/L Normal 3.5-5.1 [facility] Comment on above: Performed By: #### C MP, URIC, MG, PHOS ####[facility] [address] [place] [address]Dr. Ashok Bailey Protein [Mass/Vol] 7.2 g/dL Normal 6.4-8.2 [facility] Comment on above: Performed By: #### C MP, URIC, MG, PHOS ####[facility] [address] [place] [address]Dr. Ashok Bailey Sodium [Moles/Vol] 139 mmol/L Normal 136-145 [facility] Comment on above: Performed By: #### C MP, URIC, MG, PHOS ####[facility] [address] [place] [address]Dr. Ashok Bailey Urea nitrogen [Mass/Vol] 20.0 mg/dL Critically high 7.0-18 .0 [facility] Comment on above: Performed By: #### C MP, URIC, MG, PHOS ####[facility] [address] [place], [place] [address]Dr. Ashok Bailey Urea nitrogen/Creatinine [Ma ss ratio] 14.8 mg/mg Normal [facility] Comment on above: Performed By: #### C MP, URIC, MG, PHOS ####[facility] [address] [place], [place] [address]Dr. Ashok Bailey UA RANDOMon 06-01-2022 Bilirubin Ql (U) Negative Normal NEGATIVE [facility] Comment on above: Performed By: #### U A #### [facility] [address] [address] [address] Ashok Bailey Clarity (U) CLEAR Normal CLEAR [facility] Comment on above: Performed By: #### U A #### [facility] [address] [address] [address] Ashok Bailey Color (U) LT. YELLOW Normal YELLOW [facility] Comment on above: Performed By: #### U A #### [facility] Laboratory [address] [address] [address] Ashok Bailey Glucose Ql (U) Negative Normal NEGATIVE [facility] Comment on above: Performed By: #### U A #### [facility] Laboratory [address] [address] [address] Ashok Bailey Hemoglobin Ql (U) Negative Normal NEGATIVE [facility] Comment on above: Performed By: #### U A #### [facility] Laboratory [address] [place] [address] Dr. Ashok Bailey Ketones Ql (U) Negative Normal NEGATIVE [facility] Comment on above: Performed By: #### U A #### [facility] Laboratory [address] [place] [address] Dr. Ashok Bailey LEUKOCYTES Negative Normal NEGATIVE [facility] Comment on above: Performed By: #### U A #### [facility] Laboratory [address] [place] [address] Dr. Ashok Bailey Nitrite Ql (U) Negative Normal NEGATIVE [facility] Comment on above: Performed By: #### U A #### [facility] Laboratory [address] [place] [address] Dr. Ashok Bailey pH (U) 6.0 [pH] Normal 5-9 [facility] Comment on above: Performed By: #### U A #### [facility] Laboratory [address] [place] [address] Dr. Ashok Bailey SPEC GRAVITY 1.010 Normal 1.005-<=1. 025 [facility] Comment on above: Performed By: #### U A #### [facility] Laboratory [address] [place] [address] Dr. Ashok Bailey UA PROTEIN Negative Normal NEGATIVE/ TRACE [facility] Comment on above: Performed By: #### U A #### [facility] Laboratory [address] [place] [address] Dr. Ashok Bailey Urobilinogen Qn (U) 0.2 {Drew'U}/dL Normal 0.2 - 1.0 [facility] Comment on above: Performed By: #### U A #### [facility] Laboratory [address] [place] [address] Dr. Ashok Bailey URIC ACID SERUMon 06-01-2022 Urate [Mass/Vol] 3.9 mg/dL Normal 2.6-6.0 [facility] Comment on above: Performed By: #### C MP, URIC, MG, PHOS ####[facility] [address] [place], [place] [address]GpDr. Ashok Bailey URINE T PROTEIN CREAT RATIOo n 06-01-2022 Protein (U) [Mass/Vol] 14.0 mg/dL Critically high <=12.0 [facility] Comment on above: Performed By: #### U RTPCR #### [facility] Laboratory [address] [address] [address] Ashok Bailey UR PROT CREAT RAT 0.28 Normal [facility] Comment on above: Performed By: #### U RTPCR #### [facility] Laboratory [address] [place] [address] Dr. Ashok Bailey URINE CREAT 50.47 mg/dL Normal 20.00-300. 00 [facility] Comment on above: Performed By: #### U RTPCR #### [facility] Laboratory [address] [place] [address] Dr. Ashok Bailey VITAMIN D 25 OHon 06-01-2022 VIT D 25-OH 19.2 ng/mL Normal [facility] Comment on above: Performed By: #### F T4 #### [facility] Laboratory [address] [place] [address] Dr. Ashok Bailey VIT D RANGES SEE BELOW Normal [facility] Comment on above: Result Comment: <20 ng/mL Vit D deficient 20 - <30 ng/mL Vit D insufficient 30 - 100 ng/mL Vit D sufficient >100 ng/mL Potential Toxicity Performed By: #### F T4 #### [facility] Laboratory [address] [place] [address] Dr. Ashok Bailey US KIDNEYSon 05-03-2022 US KIDNEYS US KIDNEYS EXAM DATE: 05/03/2022 7:10 AM MST COMPARISON: None available. INDICATION: Stage IV chronic kidney disease. TECHNIQUE: Real-time ultrasound scanning of the kidneys and bladder was performed by the assistant city attorney. Manager Of School static images are submitted for review. FINDINGS: [...] by: JOBY POLO Date: 2022-05-03 12:33 Normal [facility] FREE T4on 03-25-2022 Free T4 [Mass/Vol] 1.26 ng/dL Normal 0.76-1.46 [facility] Comment on above: Performed By: #### F T4 #### [facility] Laboratory [address] [address] [address] Ashok Bailey PROF CHEM 8 (BAS METB)on Anion gap [Moles/Vol] 17.6 mmol/L Normal [facility] Comment on above: Performed By: #### B MP, TSH ####[facility] [address] [place] [id number]. Ashok Bailey Calcium [Mass/Vol] 8.9 mg/dL Normal 8.5-10.1 [facility] Comment on above: Performed By: #### B MP, TSH ####[facility] [address] [place] [id number] Bailey Chloride [Moles/Vol] 97 mmol/L Critically low 98-107 [facility] Comment on above: Performed By: #### B MP, TSH ####[facility] [address] [address]Dr. Ashok Bailey CO2 [Moles/Vol] 22.2 mmol/L Normal 21.0-32.0 [facility] Comment on above: Performed By: #### B ROBERTO, TSH ####[facility] [address] [place] [address]Dr. Ashok Bailey Creatinine [Mass/Vol] 2.42 mg/dL Critically high 0.55-1.02 [facility] Comment on above: Performed By: #### B ROBERTO, TSH ####[facility] [address] [address]Dr. Ashok Leo EGFR-AF RUSSIAN 24 mL/min/1.73m2 Critically low >=60 [facility] Comment on above: Performed By: #### B ROBERTO, TSH ####[facility] [address] [place] [address]Dr. Ashok Bailey EGFR-NON AF RUSSIAN 20 mL/min/1.73m2 Critically low >=60 [facility] Comment on above: Performed By: #### Becki MEJIA, TSH ####[facility] [address] [place] [address]Dr. Neelamandrew Bailey Glucose [Mass/Vol] 84 mg/dL Normal 74-106 [facility] Comment on above: Performed By: #### B ROBERTO, TSH ####[facility] [address] [place] [address]Dr. Ashok Bailey Potassium [Moles/Vol] 4.8 mmol/L Normal 3.5-5.1 [facility] Comment on above: Performed By: #### B ROBERTO, TSH ####[facility] [address] [place] [address]Dr. Ashok Bailey Sodium [Moles/Vol] 132 mmol/L Critically low 136-145 [facility] [place] Comment on above: Performed By: #### B ROBERTO, TSH ####[facility] [address]mi[address] [place] [address]Dr. Ashok Bailey Urea nitrogen [Mass/Vol] 43.0 mg/dL Critically high 7.0-18 .0 [facility] Comment on above: Performed By: #### B ROBERTO, TSH ####[facility] [address] [place], [place] [address]WfAlex Bailey Urea nitrogen/Creatinine [Ma ss ratio] 17.8 mg/mg Normal [facility] Comment on above: Performed By: #### B MP, TSH ####[facility] [address] [place], [place] [address]QfAlex Bailey TSHon 03-25-2022 TSH 2.368 uIU/mL Normal 0.358-3.74 0 [facility] Comment on above: Performed By: #### B MP, TSH ####[facility] [address] [place], [place] [address]XvAlex Bailey CPKon 11-12-2021 CK [Catalytic activity/Vol] 207 U/L Critically high 26- 192 [facility] Comment on above: Performed By: #### C MP, CK, TSH, LIPID #### [facility] Laboratory [address] [address] [address] Ashok Bailey FREE T4on 11-12-2021 Free T4 [Mass/Vol] 1.16 ng/dL Normal 0.76-1.46 [facility] Comment on above: Performed By: #### F T4 #### [facility] Laboratory [address] [address] [address] Ashok Bailey LIPID PROFILEon 11-12-2021 CHOL-HDL RATIO NORM SEE BELOW Normal [facility] Comment on above: Result Comment: 3.3 - 4.4 LOW RISK 4.4 - 7.1 AVERAGE RISK 7.1 - 11.0 MODERATE RISK >11.0 HIGH RISK Performed By: #### C MP, CK, TSH, LIPID #### [facility] Laboratory [address] [address] [address] Ashok Bailey Cholesterol [Mass/Vol] 215 mg/dL Critically high <=200 [facility] Comment on above: Performed By: #### C MP, CK, TSH, LIPID #### [facility] Laboratory [address] [address] [address] Ashok Bailey Cholesterol in HDL [Mass/Vol] 74 mg/dL Critically high 4 0-60 [facility] Comment on above: Performed By: #### C MP, CK, TSH, LIPID #### [facility] Laboratory [address] [address] [address] Ashok Bailey Cholesterol in LDL [Mass/Vol] 114.4 mg/dL Normal [facility] Comment on above: Performed By: #### C MP, CK, TSH, LIPID #### [facility] Laboratory [address] [address] [address] Ashok Bailey Cholesterol.total/Cholestero l in HDL [Mass ratio] 2.9 {ratio} Normal [facility] Comment on above: Performed By: #### C MP, CK, TSH, LIPID #### [facility] Laboratory [address] [address] [address] Ashok Bailey HDL NORMAL > or = 60 mg/dl - LOW CARDIOVASCULAR RISK <40 mg/dl - HIGH CARDIOVASCULAR RISK Normal [facility] Comment on above: Performed By: #### C MP, CK, TSH, LIPID #### [facility] Laboratory [address] [address] [address] Ashok Bailey LDL CALC NORMAL SEE BELOW Normal [facility] Comment on above: Result Comment: <100 mg/dl OPTIMAL 100 - 129 mg/dl NEAR OR ABOVE OPTIMAL 130 - 159 mg/dl BORDERLINE HIGH 160 - 189 mg/dl HIGH >190 mg/dl VERY HIGH Performed By: #### C MP, CK, TSH, LIPID #### [facility] Laboratory [address] [address] [address] Ashok Bailey Triglyceride [Mass/Vol] 133 mg/dL Normal <=150 [facility] Comment on above: Performed By: #### C MP, CK, TSH, LIPID #### [facility] Laboratory [address] [address] [address] Ashok Bailey VLDL CALC 26.6 mg/dL Normal [facility] Comment on above: Performed By: #### C MP, CK, TSH, LIPID #### [facility] Laboratory [address] [address] [address] Ashok Bailey PROF 14(COMP METB)on 022 Albumin [Mass/Vol] 3.9 g/dL Normal 3.4-5.0 [facility] Comment on above: Performed By: #### C MP, CK, TSH, LIPID #### [facility] Laboratory [address] [place] [address] Dr. Ashok Bailey Albumin/Globulin [Mass ratio] 1.1 {ratio} Normal [facility] Comment on above: Performed By: #### C MP, CK, TSH, LIPID #### [facility] Laboratory [address] [place] [address] Dr. Ashok Bailey ALP [Catalytic activity/Vol] 84 U/L Normal 46-116 [facility] Comment on above: Performed By: #### C MP, CK, TSH, LIPID #### [facility] Laboratory [address] [place] [address] Dr. Ashok Bailey ALT [Catalytic activity/Vol] 18 U/L Normal 14-59 [facility] Comment on above: Performed By: #### C MP, CK, TSH, LIPID #### [facility] Laboratory [address] [place] [address] Dr. Ashok Bailey Anion gap [Moles/Vol] 15.1 mmol/L Normal [facility] Comment on above: Performed By: #### C MP, CK, TSH, LIPID #### [facility] Laboratory [address] [place] [address] Dr. Ashok Bailey AST [Catalytic activity/Vol] 11 U/L Critically low 15- 37 [facility] Comment on above: Performed By: #### C MP, CK, TSH, LIPID #### [facility] Laboratory [address] [place] [address] Dr. Ashok Bailey Bilirubin [Mass/Vol] 0.3 mg/dL Normal 0.2-1.0 [facility] Comment on above: Performed By: #### C MP, CK, TSH, LIPID #### [facility] Laboratory [address] [place] [address] Dr. Ashok Bailey Calcium [Mass/Vol] 9.3 mg/dL Normal 8.5-10.1 [facility] Comment on above: Performed By: #### C MP, CK, TSH, LIPID #### [facility] Laboratory [address] [address] [address] Ashok Bailey Chloride [Moles/Vol] 101 mmol/L Normal 98-107 [facility] Comment on above: Performed By: #### C MP, CK, TSH, LIPID #### [facility] Laboratory [address] [address] [address] Ashok Bailey CO2 [Moles/Vol] 22.9 mmol/L Normal 21.0-32.0 [facility] Comment on above: Performed By: #### C MP, CK, TSH, LIPID #### [facility] Laboratory [address] [address] [address] Ashok Bailey Creatinine [Mass/Vol] 1.67 mg/dL Critically high 0.55-1.02 [facility] Comment on above: Performed By: #### C MP, CK, TSH, LIPID #### [facility] Laboratory [address] [place] [address] Dr. Ashok Bailey EGFR-AF RUSSIAN 36 mL/min/1.73m2 Critically low >=60 [facility] Comment on above: Performed By: #### C MP, CK, TSH, LIPID #### [facility] Laboratory [address] [address] [address] Ashok Bailey EGFR-NON AF RUSSIAN 30 mL/min/1.73m2 Critically low >=60 [facility] Comment on above: Performed By: #### C MP, CK, TSH, LIPID #### [facility] Laboratory [address] [address] [address] Ashok Bailey Globulin (S) [Mass/Vol] 3.5 g/dL Normal [facility] Comment on above: Performed By: #### C MP, CK, TSH, LIPID #### [facility] Laboratory [address] [address] [address] Ashok Bailey Glucose [Mass/Vol] 96 mg/dL Normal 74-106 [facility] Comment on above: Performed By: #### C MP, CK, TSH, LIPID #### [facility] Laboratory [address] [address] [address] Ashok Bailey Potassium [Moles/Vol] 5.0 mmol/L Normal 3.5-5.1 [facility] Comment on above: Performed By: #### C MP, CK, TSH, LIPID #### [facility] Laboratory [address] [place] [address] Dr. Ashok Bailey Protein [Mass/Vol] 7.4 g/dL Normal 6.4-8.2 [facility] Comment on above: Performed By: #### C MP, CK, TSH, LIPID #### [facility] Laboratory [address] [place] [address] Dr. Ashok Bailey Sodium [Moles/Vol] 134 mmol/L Critically low 136-145 Th [facility] [place] Comment on above: Performed By: #### C MP, CK, TSH, LIPID #### [facility] Laboratory [address] [place] [address] Dr. Ashok Bailey Urea nitrogen [Mass/Vol] 27.0 mg/dL Critically high 7.0-18 .0 [facility] Comment on above: Performed By: #### C MP, CK, TSH, LIPID #### [facility] Laboratory [address] [place] [address] Dr. Ashok Bailey Urea nitrogen/Creatinine [Ma ss ratio] 16.2 mg/mg Normal [facility] Comment on above: Performed By: #### C MP, CK, TSH, LIPID #### [facility] Laboratory [address] [place] [address] Dr. Ashok Bailey TSHon 11-12-2021 TSH 3.073 uIU/mL Normal 0.358-3.74 0 [facility] Comment on above: Performed By: #### C MP, CK, TSH, LIPID #### [facility] Laboratory [address] [place] [address] Dr. Ashok Bailey [facility]ABOL[facility] Lucas 05-30-2021 Albumin [Mass/Vol] 4.7 g/dL Normal 3.6-5.1 [facility] Comment on above: Performed By: #### [id number] #### [facility] [address], [address] Ash [place] [id number] Technology Solutions Architect: Austin Tobin MD Albumin/Globulin [Mass ratio] 1.8 {ratio} Normal 1.0-2 .5 [facility] Comment on above: Performed By: #### 7 600, [id number] #### [facility] of [address], [address] [place] [address] Technology Solutions Architect: Austin Tobin MD ALP [Catalytic activity/Vol] 84 U/L Normal 37-153 [facility] Comment on above: Performed By: #### 7 600, [id number] #### [facility] of [address], [address] [place] [address] Technology Solutions Architect: Austin Tobin MD ALT [Catalytic activity/Vol] 13 U/L Normal 6-29 [facility] Comment on above: Performed By: #### 7 600, [id number] #### [facility] of [place] [address] Technology Solutions Architect: Austin Tobin MD AST [Catalytic activity/Vol] 12 U/L Normal 10-35 [facility] Comment on above: Performed By: #### 7 600, [id number] #### [facility] of [place] [address] Technology Solutions Architect: Austin Tobin MD Bilirubin [Mass/Vol] 0.3 mg/dL Normal 0.2-1.2 [facility] Comment on above: Performed By: #### 7 600, 95775 #### [facility] of [address], [address] [place] [address] Technology Solutions Architect: Austin Tobin MD BUN/CREATININE RATIO NOT APPLICABLE Normal 6-22 [facility] Comment on above: Performed By: #### 7 600, 53099 #### [facility] of [address], [address] [place] [address] Technology Solutions Architect: Austin Tobin MD Calcium [Mass/Vol] 10.2 mg/dL Normal 8.6-10.4 [facility] Comment on above: Performed By: #### 7 600, 36135 #### [facility] of [address], [address] [place] [address] Technology Solutions Architect: Austin Tobin MD Chloride [Moles/Vol] 99 mmol/L Normal 98-110 [facility] Comment on above: Performed By: #### 7 600, [id number] #### [facility] [place] [address] Technology Solutions Architect: Austin Tobin MD CO2 [Moles/Vol] 29 mmol/L Normal 20-32 [facility] Comment on above: Performed By: #### 7 600, 64948 #### [facility] [place] [address] Technology Solutions Architect: Austin Tobin MD Creatinine [Mass/Vol] 0.71 mg/dL Normal 0.60-0.[address] [facility] Comment on above: Result Comment: For patients >49 years of age, the reference limit for Creatinine is approximately 13% higher for people identified as -Belgian. Performed By: #### 7 600, [id number] #### [facility] [place] [address] Technology Solutions Architect: Austin Tobin MD eGFR NON-AFR. RUSSIAN 84 mL/min/1.73m2 Normal > OR = 60 [facility] Comment on above: Performed By: #### 7 600, 52046 #### [facility] [place] [address] Technology Solutions Architect: Austin Tobin MD GFR/1.73 sq M.predicted rosa m g blacks MDRD (S/P/Bld) [Vol rate/Area] 97 mL/min/{1.73_m2} Normal > OR = 60 [facility] Comment on above: Performed By: #### 7 600, 17876 #### [facility] [place] [address] Technology Solutions Architect: Austin Tobin MD Globulin (S) [Mass/Vol] 2.6 g/dL Normal 1.9-3.7 [facility] Comment on above: Performed By: #### 7 600, 09098 #### [facility] [place] [address] Technology Solutions Architect: Austin Tobin MD Glucose [Mass/Vol] 86 mg/dL Normal 65-99 [facility] Comment on above: Result Comment: Fasting reference interval Performed By: #### 7 600, 70305 #### [facility] of [place] [address] Technology Solutions Architect: Austin Tobin MD Potassium [Moles/Vol] 4.4 mmol/L Normal 3.5-5.3 Count Includes [facility] Comment on above: Performed By: #### 7 600, [id number] #### [facility] of [address], [address] [place] [address] Technology Solutions Architect: Austin Tobin MD Protein [Mass/Vol] 7.3 g/dL Normal 6.1-8.1 [facility] Comment on above: Performed By: #### 7 600, 82505 #### [facility] of [place] [address] Technology Solutions Architect: Austin Tobin MD Sodium [Moles/Vol] 135 mmol/L Normal 135-146 [facility] Comment on above: Performed By: #### 7 600, 27141 #### [facility] of [place] [address] Technology Solutions Architect: Austin Tobin MD Urea nitrogen [Mass/Vol] 10 mg/dL Normal 7-25 [facility] Comment on above: Performed By: #### 7 600, [id number] #### [facility] of [place] [address] Technology Solutions Architect: Austin Tobin MD LIPID PANEL, STANDARD - Cholesterol [Mass/Vol] 214 mg/dL High <200 [facility] Comment on above: Performed By: #### 7 600, 50542 #### [facility] of [place] [address] Technology Solutions Architect: Austin Tobin MD Cholesterol in HDL [Mass/Vol] 85 mg/dL Normal > OR = 50 [facility] Comment on above: Performed By: #### 7 600, 56711 #### [facility] of [facility] [address], [address] [place] [address] Technology Solutions Architect: Austin Tobin MD Cholesterol in LDL [Mass/Vol] [...] LDL-C. Jordan SS et al. JAUN. 2013;310(19): 1296-8436 (http://education.c3 creations/faq/XOW176) Performed By: #### 7 600, 84950 #### [facility] [address], [address] [place] [address] Technology Solutions Architect: Austin Tobin MD Cholesterol.total/Cholestero l in HDL [Mass ratio] 2.5 {ratio} Normal <5.0 [facility] Comment on above: Performed By: #### 7 600, 31832 #### [facility] [address], [address] [place] [address] Technology Solutions Architect: Austin Tobin MD NON HDL CHOLESTEROL 129 mg/dL (calc) Normal <130 [facility] Comment on above: Result Comment: For patients with diabetes plus 1 major ASCVD risk factor, treating to a non-HDL-C goal of <100 mg/dL (LDL-C of <70 mg/dL) is considered a therapeutic option. Performed By: #### 7 600, [id number] #### [facility] [address], [address] [place] [address] Technology Solutions Architect: Austin Tobin MD Triglyceride [Mass/Vol] 113 mg/dL Normal <150 [facility] Comment on above: Performed By: #### 7 600, 79702 #### [facility] [address], [address] [place] [address] Technology Solutions Architect: Austin Tobin MD COMPREHENSIVE METABOLIC PANE Lucas 05-04-2021 Albumin [Mass/Vol] 4.3 g/dL Normal 3.6-5.1 [facility] Comment on above: Performed By: #### 7 600, 95228 #### [facility] of [address], [address] [place] [address] Technology Solutions Architect: Austin Tobin MD Albumin/Globulin [Mass ratio] 1.8 {ratio} Normal 1.0-2 .5 [facility] Comment on above: Performed By: #### 7 600, [id number] #### [facility] of [address], [address] [place] [address] Technology Solutions Architect: Austin Tobin MD ALP [Catalytic activity/Vol] 82 U/L Normal 37-153 [facility] Comment on above: Performed By: #### 7 600, 59834 #### [facility] of [address], [address] [place] [address] Technology Solutions Architect: Austin Tobin MD ALT [Catalytic activity/Vol] 11 U/L Normal 6-29 [facility] Comment on above: Performed By: #### 7 600, 17650 #### [facility] of [address], [address] [place] [address] Technology Solutions Architect: Austin Tobin MD AST [Catalytic activity/Vol] 12 U/L Normal 10-35 [facility] Comment on above: Performed By: #### 7 600, 98755 #### [facility] of [address], [address] [place] [address] Technology Solutions Architect: Austin Tobin MD Bilirubin [Mass/Vol] 0.4 mg/dL Normal 0.2-1.2 [facility] Comment on above: Performed By: #### 7 600, 01664 #### [facility] of [place] [address] Technology Solutions Architect: Austin Tobin MD BUN/CREATININE RATIO NOT APPLICABLE Normal 6-22 [facility] Comment on above: Performed By: #### 7 600, 69009 #### [facility] of [address], [address] [place] [address] Technology Solutions Architect: Austin Tobin MD Calcium [Mass/Vol] 9.4 mg/dL Normal 8.6-10.4 [facility] Comment on above: Performed By: #### 7 600, 03611 #### [facility] [address], [address] [place] [address] Technology Solutions Architect: Austin Tobin MD Chloride [Moles/Vol] 98 mmol/L Normal 98-110 [facility] Comment on above: Performed By: #### 7 600, 98923 #### [facility] [address], [address] [place] [address] Technology Solutions Architect: Austin Tobin MD CO2 [Moles/Vol] 28 mmol/L Normal 20-32 [facility] Comment on above: Performed By: #### 7 600, 18352 #### [facility] [place] [address] Technology Solutions Architect: Austin Tobin MD Creatinine [Mass/Vol] 0.73 mg/dL Normal 0.60-0.93 Count Includes [facility] Comment on above: Result Comment: For patients >49 years of age, the reference limit for Creatinine is approximately 13% higher for people identified as -Belgian. Performed By: #### 7 600, 80901 #### [facility] [place] [address] Technology Solutions Architect: Austin Tobin MD eGFR NON-AFR. RUSSIAN 82 mL/min/1.73m2 Normal > OR = 60 [facility] Comment on above: Performed By: #### 7 600, 44121 #### [facility] [place] [address] Technology Solutions Architect: Austin Tobin MD GFR/1.73 sq M.predicted rosa m g blacks MDRD (S/P/Bld) [Vol rate/Area] 95 mL/min/{1.73_m2} Normal > OR = 60 [facility] Comment on above: Performed By: #### 7 600, 70186 #### [facility] [place] [address] Technology Solutions Architect: Austin Tobin MD Globulin (S) [Mass/Vol] 2.4 g/dL Normal 1.9-3.7 [facility] Comment on above: Performed By: #### 7 600, 67375 #### [facility] [place] [address] Technology Solutions Architect: Austin Tobin MD Glucose [Mass/Vol] 102 mg/dL Normal 65-139 [facility] Comment on above: Result Comment: Non-fasting reference interval For someone without known diabetes, a glucose value between 100 and 125 mg/dL is consistent with prediabetes and should be confirmed with a follow-up test. Performed By: #### 7 600, 94249 #### [facility] [place] [address] Technology Solutions Architect: Austin Tobin MD Potassium [Moles/Vol] 4.3 mmol/L Normal 3.5-5.[address] [facility] Comment on above: Performed By: #### 7 600, 77919 #### [facility] [address], [address] [place] [address] Technology Solutions Architect: Austin Tobin MD Protein [Mass/Vol] 6.7 g/dL Normal 6.1-8.1 [facility] Comment on above: Performed By: #### 7 600, 10688 #### [facility] [place] [address] Technology Solutions Architect: Austin Tobin MD Sodium [Moles/Vol] 132 mmol/L Low 135-146 [facility] Comment on above: Performed By: #### 7 600, 07802 #### [facility] [place] [address] Technology Solutions Architect: Austin Tobin MD Urea nitrogen [Mass/Vol] 12 mg/dL Normal 7-25 [facility] Comment on above: Performed By: #### 7 600, 72371 #### [facility] [place] [address] Technology Solutions Architect: Austin Tobin MD LIPID PANEL, [facility] Cholesterol [Mass/Vol] 168 mg/dL Normal <200 [facility] Comment on above: Order Comment: FASTI NG:NO FASTING: NO Performed By: #### 7 600, 44246 #### [facility] [place] [address] Technology Solutions Architect: Austin Tobin MD Cholesterol in HDL [Mass/Vol] 79 mg/dL Normal > OR = 50 [facility] Comment on above: Order Comment: FASTI NG:NO FASTING: NO Performed By: #### 7 600, 92894 #### [facility] [place] [address] Technology Solutions Architect: Austin Tobin MD Cholesterol in LDL [Mass/Vol] [...] LDL-C. Jordan SS et al. JAUN. 2013;310(19): 7411-7928 (http://education.kapturem.ChipRewards/faq/OMU779) Performed By: #### 7 600, 83096 #### [facility] [place] [address] Technology Solutions Architect: Austin Tobin MD Cholesterol.total/Cholestero l in HDL [Mass ratio] 2.1 {ratio} Normal <5.0 [facility] Comment on above: Order Comment: FASTI NG:NO FASTING: NO Performed By: #### 7 600, 90679 #### [facility] [place] [address] Technology Solutions Architect: Austin Tobin MD NON HDL CHOLESTEROL 89 mg/dL (calc) Normal <130 [facility] Comment on above: Order Comment: FASTI NG:NO FASTING: NO Result Comment: For patients with diabetes plus 1 major ASCVD risk factor, treating to a non-HDL-C goal of <100 mg/dL (LDL-C of <70 mg/dL) is considered a therapeutic option. Performed By: #### 7 600, 06127 #### [facility] [address] [place] [address], [address] [place] [address] Technology Solutions Architect: Austin Tobin MD Triglyceride [Mass/Vol] 79 mg/dL Normal <150 [facility] Comment on above: Order Comment: FASTI NG:NO FASTING: NO Performed By: #### 7 600, 96187 #### [facility] [address], [address] [place] [address] Technology Solutions Architect: Austin Tobin MD Vital Signs Date Time Vital Sign Value Performing Clinician Facility 04-09-2024 10:57-0500 Body height 160.02 cm [facility] 04-09-2024 10:57-0500 Body mass index (BMI) [Ratio] 26 kg/m2 [facility] 04-09-2024 10:57-0500 Body temperature 97.8 [degF] [facility] 04-09-2024 10:57-0500 Body weight 66.67 kg [facility] 04-09-2024 10:57-0500 Diastolic blood pressure 66 mm[Hg] [facility] 04-09-2024 10:57-0500 Heart rate 61 /min [facility] 04-09-2024 10:57-0500 Respiratory rate 16 /min [facility] 04-09-2024 10:57-0500 Systolic blood pressure 138 mm[Hg] [facility] 03-12-2024 16:12-0500 Body height 157.5 cm [employer] DO Work Phone: [facility] 03-12-2024 16:12-0500 Body mass index (BMI) [Ratio] 27.4 kg/m2 [employer] DO Work Phone: [facility] 03-12-2024 16:12-0500 Body temperature 97.9 [degF] Carson Furlong DO Work Phone: [facility] 03-12-2024 16:12-0500 Body weight 67.95 kg Carson Furlong DO Work Phone: [facility] 03-12-2024 16:12-0500 Diastolic blood pressure 60 mm[Hg] Carson Furlong DO Work Phone: [facility] 03-12-2024 16:12-0500 Heart rate 88 /min Carson Furlong DO Work Phone: [facility] 03-12-2024 16:12-0500 Respiratory rate 18 /min Carson Furlong DO Work Phone: [facility] 03-12-2024 16:12-0500 SaO2% (BldA) [Mass fraction] 95 % Carson Furlong DO Work Phone: [facility] 03-12-2024 16:12-0500 Systolic blood pressure 110 mm[Hg] Carson Furlong DO Work Phone: [facility] 12-28-2023 13:02-0400 Body height 157.5 cm Carson Furlong DO Work Phone: [facility] 12-28-2023 13:02-0400 Body mass index (BMI) [Ratio] 26.26 kg/m2 Carson Furlong DO Work Phone: [facility] 12-28-2023 13:02-0400 Body temperature 98.1 [degF] Carson Furlong DO Work Phone: [facility] 12-28-2023 13:02-0400 Body weight 65.14 kg Carson Furlong DO Work Phone: [facility] 12-28-2023 13:02-0400 Diastolic blood pressure 54 mm[Hg] Carson Furlong DO Work Phone: [facility] 12-28-2023 13:02-0400 Heart rate 78 /min [employer] DO Work Phone: [facility] 12-28-2023 13:02-0400 Respiratory rate 20 /min Carson Furlong DO Work Phone: [facility] 12-28-2023 13:02-0400 SaO2% (BldA) [Mass fraction] 96 % Carson Furlong DO Work Phone: [facility] 12-28-2023 13:02-0400 Systolic blood pressure 122 mm[Hg] [employer] DO Work Phone: [facility] 10-24-2023 10:52-0400 Body height 160.02 cm [facility] 10-24-2023 10:52-0400 Body mass index (BMI) [Ratio] 24.5 kg/m2 [facility] 10-24-2023 10:52-0400 Body temperature 97.8 [degF] [facility] 10-24-2023 10:52-0400 Body weight 62.76 kg [facility] 10-24-2023 10:52-0400 Diastolic blood pressure 67 mm[Hg] [facility] 10-24-2023 10:52-0400 Heart rate 80 /min [facility] 10-24-2023 10:52-0400 Respiratory rate 18 /min [facility] 10-24-2023 10:52-0400 SaO2% (BldA) [Mass fraction] 99 % [facility] 10-24-2023 10:52-0400 Systolic blood pressure 126 mm[Hg] [facility] 10-10-2023 10:37-0400 Body height 157.5 cm [employer] DO Work Phone: [facility] 10-10-2023 10:37-0400 Body mass index (BMI) [Ratio] 26.14 kg/m2 [employer] DO Work Phone: [facility] 10-10-2023 10:37-0400 Body weight 64.82 kg Carson Furlong DO Work Phone: [facility] 10-10-2023 10:37-0400 Diastolic blood pressure 68 mm[Hg] Carson Furlong DO Work Phone: [facility] 10-10-2023 10:37-0400 Systolic blood pressure 137 mm[Hg] Carson Furlong DO Work Phone: [facility] 09-26-2023 13:39-0400 Body height 160 cm Carson Furlong DO Work Phone: [facility] 09-26-2023 13:39-0400 Body mass index (BMI) [Ratio] 25.3 kg/m2 Carson Furlong DO Work Phone: [facility] 09-26-2023 13:39-0400 Body temperature 97.9 [degF] Carson Furlong DO Work Phone: [facility] 09-26-2023 13:39-0400 Body weight 64.77 kg Carson Furlong DO Work Phone: [facility] 09-26-2023 13:39-0400 Diastolic blood pressure 40 mm[Hg] Carson Furlong DO Work Phone: [facility] 09-26-2023 13:39-0400 Heart rate 81 /min Carson Furlong DO Work Phone: [facility] 09-26-2023 13:39-0400 Respiratory rate 18 /min Carson Furlong DO Work Phone: [facility] 09-26-2023 13:39-0400 SaO2% (BldA) [Mass fraction] 99 % Carson Furlong DO Work Phone: [facility] 09-26-2023 13:39-0400 Systolic blood pressure 100 mm[Hg] Carson Furlong DO Work Phone: [facility] 06-28-2023 11:33-0400 Body height 160 cm Carson Furlong DO Work Phone: [facility] 06-28-2023 11:33-0400 Body mass index (BMI) [Ratio] 25.35 kg/m2 Carson Furlong DO Work Phone: [facility] 06-28-2023 11:33-0400 Body temperature 97.5 [degF] Carson Furlong DO Work Phone: [facility] 06-28-2023 11:33-0400 Body weight 64.91 kg Carson Furlong DO Work Phone: [facility] 06-28-2023 11:33-0400 Diastolic blood pressure 78 mm[Hg] Carson Furlong DO Work Phone: [facility] 06-28-2023 11:33-0400 Heart rate 97 /min Carson Furlong DO Work Phone: [facility] 06-28-2023 11:33-0400 Respiratory rate 24 /min Carson Furlong DO Work Phone: [facility] 06-28-2023 11:33-0400 SaO2% (BldA) [Mass fraction] 100 % Carson Furlong DO Work Phone: [facility] 06-28-2023 11:33-0400 Systolic blood pressure 134 mm[Hg] Carson Furlong DO Work Phone: [facility] 04-28-2023 09:54-0500 Body height 160 cm Good [employer] APRN-UPSTREAM 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 TECHNICIAN Work Phone: [facility] 04-28-2023 09:54-0500 Body mass index (BMI) [Ratio] 25.51 kg/m2 [employer] APRN-UPSTREAM 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 TECHNICIAN Work Phone: [facility] 04-28-2023 09:54-0500 Body temperature 98.01 [degF] Good Dan DESIGNER WRITER-UPSTREAM 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 TECHNICIAN Work Phone: [facility] 04-28-2023 09:54-0500 Body weight 65.32 kg Good Dan DESIGNER WRITER-UPSTREAM 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 TECHNICIAN Work Phone: [facility] 04-28-2023 09:54-0500 Diastolic blood pressure 70 mm[Hg] Good Dan DESIGNER WRITER-UPSTREAM 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 TECHNICIAN Work Phone: [facility] 04-28-2023 09:54-0500 Heart rate 79 /min Good Dan DESIGNER WRITER-UPSTREAM 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 TECHNICIAN Work Phone: [facility] 04-28-2023 09:54-0500 SaO2% (BldA) [Mass fraction] 87 % Good Dan DESIGNER WRITER-UPSTREAM 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 TECHNICIAN Work Phone: [facility] 04-28-2023 09:54-0500 Systolic blood pressure 140 mm[Hg] Good Dan DESIGNER WRITER-UPSTREAM 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 TECHNICIAN Work Phone: [facility] 03-30-2023 08:33-0500 Body height 160 cm Good Dan DESIGNER WRITER-UPSTREAM 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 TECHNICIAN Work Phone: [facility] 03-30-2023 08:33-0500 Body mass index (BMI) [Ratio] 24.66 kg/m2 Good Dan DESIGNER WRITER-UPSTREAM 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 TECHNICIAN Work Phone: [facility] 03-30-2023 08:33-0500 Body temperature 97.9 [degF] Good Dan DESIGNER WRITER-UPSTREAM 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 TECHNICIAN Work Phone: [facility] 03-30-2023 08:33-0500 Body weight 63.14 kg Good Dan DESIGNER WRITER-UPSTREAM 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 TECHNICIAN Work Phone: [facility] 03-30-2023 08:33-0500 Diastolic blood pressure 58 mm[Hg] Good Dan DESIGNER WRITER-UPSTREAM 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 TECHNICIAN Work Phone: [facility] 03-30-2023 08:33-0500 Heart rate 78 /min Good [employer] Work Phone: [id number] 03-30-2023 08:33-0500 SaO2% (BldA) [Mass fraction] 100 % oGod UREÑA Work Phone: [facility] 03-30-2023 08:33-0500 Systolic blood pressure 118 mm[Hg] Good URE[employer]A Work Phone: [id number] 03-28-2023 11:20-0500 Body height 160.02 cm Bri [employer] Other 03-28-2023 11:20-0500 Body mass index (BMI) [Ratio] 24.83 kg/m2 Azlokesh [employer] Other 03-28-2023 11:20-0500 Body temperature 96.9 [degF] Aziz [employer] Other 03-28-2023 11:20-0500 Body weight 63.59 kg Aziz [employer] Other 03-28-2023 11:20-0500 Diastolic blood pressure 70 mm[Hg] Aziz [employer] Other 03-28-2023 11:20-0500 Systolic blood pressure 138 mm[Hg] Aziz [employer] [facility] [employer] Other 10-11-2022 14:20-0400 Body height 160.02 cm Aziz [employer] Other 10-11-2022 14:20-0400 Body mass index (BMI) [Ratio] 24.8 kg/m2 Aziz [employer] Other 10-11-2022 14:20-0400 Body temperature 96.4 [degF] Aziz [employer] Other 10-11-2022 14:20-0400 Body weight 63.5 kg Aziz [employer] Other 10-11-2022 14:20-0400 Diastolic blood pressure 60 mm[Hg] Aziz [employer] Other 10-11-2022 14:20-0400 Respiratory rate 18 /min Aziz [employer] Other 10-11-2022 14:20-0400 Systolic blood pressure 130 mm[Hg] Aziz Bakhous Other [facility] Other 06-07-2022 10:20-0400 Body height 160.02 cm Aziz Bakhous Other [facility] Other 06-07-2022 10:20-0400 Body mass index (BMI) [Ratio] 24.55 kg/m2 Aziz Bakhous Other [facility] Other 06-07-2022 10:20-0400 Body temperature 97.2 [degF] Aziz Bakhous Other [facility] Other 06-07-2022 10:20-0400 Body weight 62.87 kg Aziz Bakhous Other [facility] Other 06-07-2022 10:20-0400 Diastolic blood pressure 72 mm[Hg] Aziz Bakhous Other [facility] Other 06-07-2022 10:20-0400 Respiratory rate 18 /min Aziz Bakhous Other [facility] Other 06-07-2022 10:20-0400 SaO2% (BldA) [Mass fraction] 97 % Aziz Bakhous Other [facility] Other 06-07-2022 10:20-0400 Systolic blood pressure 130 mm[Hg] Aziz Bakhous Other [facility] Other 04-26-2022 09:40-0500 Body height Aziz Bakhous Other [facility] Other 04-26-2022 09:40-0500 Body mass index (BMI) [Ratio] 24.97 kg/m2 Aziz Bakhous Other [facility] Other 04-26-2022 09:40-0500 Body weight 63.96 kg Aziz Bakhous Other [facility] Other 04-26-2022 09:40-0500 Diastolic blood pressure 84 mm[Hg] Aziz Bakhous Other [facility] Other 04-26-2022 09:40-0500 SaO2% (BldA) [Mass fraction] 98 % Aziz Bakhous Other [facility] Other 04-26-2022 09:40-0500 Systolic blood pressure 150 mm[Hg] Aziz Bakhous Other [facility] Other Encounters Encounter Date Encounter Type Care Provider Facility Start: 04-23-2024 End: 04-23-2024 Refill Carson Sullivan DO Work Phone: [facility] Comment on above: Essential hypertensi on Start: 04-09-2024 End: 04-09-2024 ambulatory [facility] Work Phone: Start: 04-09-2024 End: 04-09-2024 Patient encounter procedure [facility] Work Phone: Start: 04-02-2024 Non-patient / Non-visit [facility] Work Phone: Start: 03-12-2024 End: 03-12-2024 Office outpatient visit 15 minutes Carson Sullivan DO Work Phone: [facility] Comment on above: Post-herpetic polyne uropathy (Primary Dx) Start: 03-12-2024 End: 03-12-2024 ambulatory [facility] Start: 03-04-2024 End: 03-04-2024 Telephone encounter Carson Sullivan DO Work Phone: [facility] Start: 02-29-2024 End: 02-29-2024 Orders Only Carson Sullivan DO Work Phone: [facility] Start: 02-22-2024 End: 02-22-2024 ambulatory [facility] Start: 01-31-2024 End: 01-31-2024 Refill Sandra Hernandez CMA [facility] Start: 01-03-2024 End: 01-03-2024 Refill Carson Sullivan DO Work Phone: [facility] Start: 01-01-2024 End: 01-01-2024 Refill [facility] Start: 12-28-2023 End: 12-28-2023 Office outpatient visit 25 minutes Carson Sullivan DO Work Phone: [facility] Comment on above: Anxiety (Primary Dx) ; Sleep disturbance; Cigarette smoker; Need for immunization against influenza; Fibromyalgia; Postlaminectomy syndrome, not elsewhere classified; Hyperlipidemia, unspecified hyperlipidemia type Start: 12-28-2023 End: 12-28-2023 ambulatory [facility] Start: 12-25-2023 End: 12-25-2023 ambulatory Diamond Mooney MD Facility: [place] Start: 10-24-2023 End: 10-24-2023 ambulatory [facility] Work Phone: Start: 10-24-2023 End: 10-24-2023 Patient encounter procedure [facility] Work Phone: Start: 10-17-2023 Non-patient / Non-visit [facility] Work Phone: Start: 10-16-2023 End: 10-16-2023 ambulatory Diamond Mooney MD Facility: [place] Start: 10-10-2023 End: 10-10-2023 Patient encounter procedure Carson Sullivan DO Work Phone: [facility] Comment on above: Medicare annual well ness visit, subsequent (Primary Dx); Screening for depression Start: 10-10-2023 End: 10-11-2023 ambulatory [facility] Comment on above: Anxiety Start: 10-06-2023 End: 10-07-2023 Refill Carson Sullivan DO Work Phone: [facility] Comment on above: Essential hypertensi on Start: 09-28-2023 End: 09-28-2023 Telephone encounter Carson Sullivan DO Work Phone: [facility] Start: 09-26-2023 End: 09-26-2023 Office outpatient visit 25 minutes Carson Sullivan DO Work Phone: [facility] Comment on above: 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 (Primary Dx); Postlaminectomy syndrome, not elsewhere classified; Tobacco dependence syndrome; Fibromyalgia Start: 09-26-2023 End: 09-26-2023 [facility] Start: 09-16-2023 End: 09-16-2023 Refill Carson Sullivan DO [facility] Start: 09-10-2023 End: 09-10-2023 Refill Carson Sullivan DO [facility] Comment on above: Fibromyalgia Start: 08-31-2023 End: 08-31-2023 Orders Only Good Dan DESIGNER WRITER-UPSTREAM 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 TECHNICIAN Work Phone: [facility] Family [facility] Start: 08-24-2023 End: 08-31-2023 Refill Trixie Jeremy [facility] [employer] Comment on above: Postlaminectomy synd colette, not elsewhere classified Start: 08-21-2023 End: 08-21-2023 Refill Carson Sullivan DO Work Phone: [facility] Start: 08-15-2023 End: 10-04-2023 Telephone encounter Carson Sullivan DO Work Phone: [facility] Start: 07-26-2023 End: 08-01-2023 Refill Trixie Jeremy BAY STOCKER [facility] Comment on above: Postlaminectomy synd colette, not elsewhere classified Start: 07-14-2023 End: 07-14-2023 ambulatory YULIA MEYERSANS Not Available Start: 07-03-2023 End: 07-03-2023 Orders Only Carson Sullivan DO [facility] Comment on above: Postlaminectomy synd colette, not elsewhere classified (Primary Dx) Start: 06-30-2023 End: 06-30-[address] 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) (Primary Dx); Acquired hypothyroidism; Fibromyalgia; Anxiety; Postlaminectomy syndrome, not elsewhere classified; Sleep disturbance; Tobacco dependence syndrome; Spinal stenosis of lumbar region without neurogenic claudication; Hypokalemia; Hyperlipidemia, unspecified hyperlipidemia type Start: 06-28-2023 End: 06-28-2023 ambulatory [facility] Start: 06-03-2023 Orders Only Carson cordero DO Work Phone: [facility] Comment on above: Special screening fo r malignant neoplasm of colon (Primary Dx) Start: 05-29-2023 Refill Farnaz Bennett [facility] Comment on above: 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 Start: 05-19-2023 End: 05-19-2023 ambulatory YULIA L EDGAR Not Available Start: 2023 End: 2023 ambulatory Aden Baca Facility:[facility] Start: 05-02-2023 Refill Trixie Luna [facility]ist [facility] Comment on above: 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 Start: 04-29-2023 Refill Good Dan DESIGNER WRITER-UPSTREAM 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 TECHNICIAN Work Phone: [facility] Start: 04-28-2023 End: 04-28-2023 Office outpatient visit 15 minutes Good Dan DESIGNER WRITER-UPSTREAM 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 TECHNICIAN Work Phone: [facility] Comment on above: 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 (Primary Dx); Tobacco dependence syndrome; Lumbosacral spondylosis without myelopathy Start: 04-28-2023 End: 04-28-2023 ambulatory [facility] Start: 04-17-2023 Refill Trixie Jeremy DREA [facility] [...] rimary Dx) Start: 03-31-2023 End: 04-01-2023 ambulatory [facility] Start: 03-30-2023 End: 03-30-2023 Office outpatient visit 15 minutes Good Dan DESIGNER WRITER-UPSTREAM 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 TECHNICIAN Work Phone: [facility] Comment on above: Chronic pain of both shoulders (Primary Dx); Peripheral vascular disease (CMS-HCC); Stage 3b chronic kidney disease (CMS-HCC); Smoker; Lumbosacral spondylosis without myelopathy Start: 03-30-2023 End: 03-30-2023 ambulatory [facility] Start: 03-28-2023 End: 03-28-2023 ambulatory Bri Alonso Other Bloc Other Start: 03-28-2023 Office outpatient vi sit 25 minutes Aziz Bakhous [facility] Start: 03-20-2023 Refill Carson Mustapha cordero DO [facility] Start: 03-10-2023 End: 03-10-2023 ambulatory YULIA HERNÁNDEZ Not Available Start: 03-07-2023 End: 04-06-2023 ambulatory GOOD Michelle [facility] Start: 03-03-2023 Orders Only Good Martinez Ni DESIGNER WRITER-UPSTREAM 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 TECHNICIAN Work Phone: [facility] Start: 03-02-2023 Refill Farnaz Bennett CMA [facility] Comment on above: 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 Start: 02-20-2023 End: 03-06-2023 ambulatory [facility] Start: 10-11-2022 End: 10-11-2022 ambulatory Aziz Bakhous Other Bloc Other Start: 10-11-2022 Office outpatient vi sit 25 minutes Aziz Bakhous [facility] Start: 06-07-2022 End: 06-07-2022 ambulatory Aziz Bakhous Other Bloc Other Start: 06-07-2022 Patient encounter procedure Aziz Bakhous [facility] Start: 06-01-2022 End: 06-02-2022 ambulatory AZIZ BAKHOUS Facility:[facility] Start: 05-03-2022 End: 05-04-2022 ambulatory AZIZ BAKHOUS Facility:[facility] Start: 04-26-2022 End: 04-26-2022 ambulatory Aziz Bakhous Other Bloc Other Start: 04-26-2022 Office outpatient ne w 30 minutes Aziz Bakhous [facility] Start: 03-25-2022 End: 03-26-[address] CARSON SULLIVAN Facility:[facility] Start: 11-12-2021 End: 11-13-[address] CARSON SULLIVAN Facility:[facility] Start: 11-04-2021 End: 11-04-2021 ambulatory SABRINA ZARITAKHANH Facility:[facility] Start: 10-07-2021 End: 10-07-2021 ambulatory SABRINA MANUEL Facility: Procedures Date Procedure Procedure Detail Performing [...] 04-28-2023 Adult depression scr eening assessment Good Ni DESIGNER WRITER-UPSTREAM 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 TECHNICIAN Work Phone: Start: 04-07-2023 CRYOTHERAPY SKIN LESION Yulia FOSTER Work Phone: Start: 03-30-2023 Follow-up visit Follow-up GOOD DAN Start: 03-30-2023 Adult depression scr eening assessment Good Dan DESIGNER WRITER-UPSTREAM 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 TECHNICIAN Work Phone: Start: 02-09-2023 Adult depression scr eening assessment Good Dan DESIGNER WRITER-UPSTREAM 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 TECHNICIAN Work Phone: Plan of Treatment Date Care Activity Detail Author Start: 03-12-2025 Tobacco Screening Tobacco Screening [facility] Start: 02-21-2025 Tobacco Screening Tobacco Screening [facility] Start: 12-27-2024 Adult BMI Screening Adult BMI Screen ing [facility] Start: 12-27-2024 Depression Screening Depression Scre ening [facility] Start: 12-27-2024 Fall Risk Screening Fall Risk Screen ing [facility] Start: 12-27-2024 Tobacco Screening Tobacco Screening [facility] Start: 10-10-2024 End: 10-10-2024 Patient encounter procedure 10/10/2024 9:40 AM EDT Office Visit [facility] [address] [place] [address] [facility] Start: 10-09-2024 Adult BMI Screening Adult BMI Screen ing [facility] Start: 10-09-2024 Depression Screening Depression Scre ening [facility] Start: 10-09-2024 Fall Risk Screening Fall Risk Screen ing [facility] Start: 10-09-2024 Medicare Annual Well ness Visit Medicare Annual Wellness Visit [facility] Start: 10-09-2024 Tobacco Screening Tobacco Screening [facility] Start: 09-25-2024 Adult BMI Screening Adult BMI Screen ing [facility] Start: 09-25-2024 Depression Screening Depression Scre ening [facility] Start: 09-25-2024 Fall Risk Screening Fall Risk Screen ing [facility] Start: 09-25-2024 Tobacco Screening Tobacco Screening [facility] Start: 06-27-2024 Adult BMI Screening Adult BMI Screen ing [facility] Start: 06-27-2024 Depression Screening Depression Scre ening [facility] Start: 06-27-2024 Fall Risk Screening Fall Risk Screen ing [facility] Start: 06-27-2024 Tobacco Screening Tobacco Screening [facility] Start: 06-06-2024 End: 06-06-2024 Patient encounter procedure 06/06/2024 11:00 AM EDT Office Visit [facility] [address] [place] [address] Carson Sullivan, DO [address], [facility] [place] [address] [facility] Start: 04-28-2024 Adult BMI Screening Adult BMI Screen ing [facility] Start: 04-28-2024 Depression Screening Depression Scre ening [facility] Start: 04-28-2024 Fall Risk Screening Fall Risk Screen ing [facility] Start: 04-28-2024 Tobacco Screening Tobacco Screening [facility] Start: 04-10-2024 DTaP,Tdap and Td Vac cines (2 - Td or Tdap) DTaP,Tdap and Td Vaccines (2 - Td or Tdap) [facility] Start: 03-30-2024 Adult BMI Screening Adult BMI Screen ing [facility] Start: 03-30-2024 Depression Screening Depression Scre ening [facility] Start: 03-30-2024 Fall Risk Screening Fall Risk Screen ing [facility] Start: 03-30-2024 Tobacco Screening Tobacco Screening [facility] Start: 03-26-2024 End: 03-26-2024 Patient encounter procedure 03/26/2024 1:30 PM EST Office Visit [facility] [address] [place] [address] Carson Sullivan, [address], [place] [address] [facility] Start: 03-12-2024 End: 03-12-2024 Patient encounter procedure 03/12/2024 4:00 PM EST [facility] [address] [place] [address] Carsno Sullivan DO [address], [place] [address] [facility] Start: 02-22-2024 End: 02-22-2024 ambulatory 02/22/2024 2:15 PM EST Support Visit [facility] [address] [place] [address] Carson Sullivan DO [address], [place] [address] [facility] Start: 02-10-2024 Adult BMI Screening Adult BMI Screen ing [facility] Start: 02-10-2024 Depression Screening Depression Scre ening [facility] Start: 02-10-2024 Fall Risk Screening Fall Risk Screen ing [facility] Start: 02-10-2024 Tobacco Screening Tobacco Screening [facility] Start: 12-28-2023 End: 12-28-2023 Patient encounter procedure 12/28/2023 1:00 PM EDT Office Visit [facility] [address] [place] [address] Carson Sullivan DO [address], [place] [address] [facility] Family [facility] Start: 11-05-2023 Influenza vaccination Influenza Vacc ine [facility] Start: 10-10-2023 End: 10-10-2023 Patient encounter procedure 10/10/2023 2:20 PM EDT Office Visit [facility] [address] [place] [address] [facility] Start: 10-10-2023 End: 10-10-2023 Patient encounter procedure 10/10/2023 10:40 AM EDT Office Visit [facility] [address] [place] [address] [facility] Start: 09-26-2023 End: 09-26-2023 Patient encounter procedure 09/26/2023 1:45 PM EDT Office Visit [facility] [address] [place] [address] Carson Sullivan, [address], [place] [address] [facility] Start: 08-17-2023 End: 08-17-2023 Patient encounter procedure 08/17/2023 11:40 AM EDT Office Visit [facility] [address] [place] [address] [facility] Start: 08-03-2023 Medicare Annual Well ness Visit Medicare Annual Wellness Visit [facility] Start: 07-19-2023 Administration of varicella zoster vaccine Zoster (Shingles) Vaccine (1 of 2) [facility] Comment on above: Postponed from 05/10 (Patient Refused) Start: 05-19-2023 End: 05-19-2023 Patient encounter procedure 05/19/2023 11:50 AM EDT Office Visit [facility] [address] [place] [id number] Yulia Hernández PA [address] [place] [address] [facility] Start: 04-07-2023 End: 04-07-2023 Patient encounter procedure 04/07/2023 10:20 AM EST Office Visit [facility] [address] [place] [phone] Yulia Hernández PA [address] [place] [address] Arrived [facility] Comment on above: Arrived Start: 03-30-2023 End: 03-30-2024 XR Shoulder - left 2 Views X-ray shoulder left minimum 2 views Imaging Routine Chronic pain of both shoulders Expected: 03/30/2023, Expires: 03/30/2024 [facility]: Comment on above: Expected: 03/30/2023 , Expires: 03/30/2024 Start: 03-30-2023 End: 03-30-2024 XR Shoulder - right 2 Views X-ray shoulder right minimum 2 views Imaging Routine Chronic pain of both shoulders Expected: 03/30/2023, Expires: 03/30/2024 [facility] Comment on above: Expected: 03/30/2023 , Expires: 03/30/2024 Start: 03-07-2023 End: 03-07-2023 Patient encounter procedure 03/07/2023 2:00 PM EST Appointment [facility] [address] [place] [id number] [facility] Start: 02-03-2023 Screening for malign ant neoplasm of colon Colon Cancer Screening 3 Year Cologuard [facility] Start: 05-10-1966 Administration of varicella zoster vaccine Zoster (Shingles) Vaccine (1 of 2) [facility] Start: 05-10-1965 Adult BMI Follow Up Plan Adult BMI Follow Up Plan [facility] Start: 1947 Tobacco Counseling Tobacco Counselin g [facility] Lab Routine Special screening for malignant neoplasm of colon Ordered: 06/03/2023 [facility] Work Phone: Comment on above: Ordered: 06/03/2023 Renal function 1999 panel - Serum or Plasma [facility] Renal function 1999 panel - Serum or Plasma [facility] Immunizations Immunization Date Immunization Notes Care Provider [facility] 12-28-2023 Seasonal trivalent influenza vaccine, adjuvanted, preservative free Carson Sullivan DO Work Phone: [facility] 12-28-2023 Immunization, In Clinic,; Translations: [Drug or medicament (substance)] Carson Sullivan DO Work Phone: [facility] 02-09-2023 Influenza Vaccine, Quadrivalent, Adjuvanted Good Dan DESIGNER WRITER-UPSTREAM 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 TECHNICIAN Work Phone: [facility] 02-09-2023 influenza virus vacc ine, unspecified formulation Carson Sullivan DO Work Phone: [facility] 12-04-2020 influenza, high dose seasonal, preservative-free Good Ni DESIGNER WRITER-UPSTREAM 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 TECHNICIAN Work Phone: [facility] 11-25-2019 influenza, injectabl e, quadrivalent, preservative free Good Ni DESIGNER WRITER-UPSTREAM 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 TECHNICIAN Work Phone: [facility] 05-18-2019 Seasonal trivalent influenza vaccine, adjuvanted, preservative free Good Ni DESIGNER WRITER-UPSTREAM 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 TECHNICIAN Work Phone: [facility] 11-19-2018 Seasonal trivalent influenza vaccine, adjuvanted, preservative free Good Ni DESIGNER WRITER-UPSTREAM 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 TECHNICIAN Work Phone: [facility] 11-20-2017 influenza, injectabl e, quadrivalent, contains preservative Good Ni DESIGNER WRITER-UPSTREAM 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 TECHNICIAN Work Phone: [facility] 11-20-2017 Seasonal trivalent influenza vaccine, adjuvanted, preservative free Good Ni DESIGNER WRITER-UPSTREAM 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 TECHNICIAN Work Phone: [facility] 11-25-2016 influenza, injectabl e, quadrivalent, preservative free Good Ni DESIGNER WRITER-UPSTREAM 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 TECHNICIAN Work Phone: [facility] 11-25-2016 influenza, seasonal, injectable Good Ni DESIGNER WRITER-UPSTREAM 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 TECHNICIAN Work Phone: [facility] 03-14-2016 pneumococcal polysaccharide vaccine, 23 valent Good Ni DESIGNER WRITER-UPSTREAM 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 TECHNICIAN Work Phone: [facility] 12-10-2015 influenza, high dose seasonal, preservative-free Good Ni DESIGNER WRITER-UPSTREAM 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 TECHNICIAN Work Phone: [facility] 03-10-2015 pneumococcal conjuga te vaccine, 13 valent Good Ni DESIGNER WRITER-UPSTREAM 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 TECHNICIAN Work Phone: [facility] 12-08-2014 influenza, seasonal, injectable, preservative free Good Ni DESIGNER WRITER-UPSTREAM 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 TECHNICIAN Work Phone: [facility] 04-10-2014 tetanus toxoid, redu savanna diphtheria toxoid, and acellular pertussis vaccine, adsorbed Good Dan DESIGNER WRITER-[facility] Work Phone: [facility] 12-23-2013 influenza virus vacc ine, unspecified formulation Good Dan DESIGNER WRITER-UPSTREAM 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 TECHNICIAN Work Phone: [facility] 01-28-2013 pneumococcal conjuga te vaccine, 13 valent Good Dan DESIGNER WRITER-[facility] Work Phone: [facility] Payers Date Payer Category Payer Self-pay 2023 Private Health Insurance 2013 Medicare [id number] 2013 Medicare HMO [employer] MEDICARE [id number] 1959 Medicare [id number] 2..[id number] 1945 Unknown [id number] 2.840.1.873599.3.579. 2.593 1945 Unknown [id number] 2.16840.1.441995.3.579. 2.593 1947 Unknown [id number] 2.16840.1.580872.3.579. 2.593 1947 Unknown [id number] 2.16840.1.557517.3.579. 2.593 1947 Unknown [id number] 2.16.840.1.584617.3.579. 2.593 8 Unknown [id number] 2.16.840.1.306067.3.579. 2.593 1947 Unknown [id number] 2.16.840.1.628435.3.579. 2.1286 1947 Unknown [id number] 2.16.840.1.452055.3.579. 2.1286 1947 Unknown [id number] 2.16.840.1.514460.3.579. 2.1286 1947 Unknown [id number] 2.16840.1.181756.3.579. 2.128 1947 Unknown [id number] 2.16.840.1.294431.3.579. 2.1259 1947 Unknown [id number] 2.16840.1.633915.3.579. 2.1259 1947 Unknown [id number] 2.16840.1.830837.3.579. 2.1259 1947 Unknown [id number] 2.16840.1.379324.3.579. 2.1259 1947 Unknown [id number] 2.16840.1.045441.3.579. 2.196 1947 Unknown [id number] 2.16840.1.448033.3.579. 2.196 1947 Unknown [id number] 2.16.840.1.718771.3.579. 2.1286 1947 Unknown [id number] 2.16840.1.018665.3.579. 2.128 1947 Unknown [id number] 2.16.840.1.062587.3.579. 2.1286 1947 Unknown [id number] 2.16.840.1.180998.3.579. 2.1286 1947 Unknown [id number] 2..840.1.537732.3.579. 2.1286 1947 Unknown [id number] 2.16.840.1.334188.3.579. 2.1286 1947 Unknown [id number] 2..840.1.401490.3.579. 2.1286 1947 Unknown [id number] 2.840.1.608462.3.579. 2.1286 Medicare Medicare [id number] Unknown [id number] 2..840.1.226215.3.579. 2.531 Social History Date Type Detail Facility Start: 07-18-2022 End: 06-28-2023 Sex Assigned At [place] [facility] Other Start: 03-10-2023 Tobacco smoking status [facility] Tobacco smoking consumption unknown [facility] Start: 1945 Sex Assigned At Not on file [facility] Start: 10-24-2023 End: 10-24-2023 Tobacco smoking status MDIS Smoker (finding) [facility] Start: 1945 Sex Assigned At Female [facility] Start: 11-16-2021 End: 06-28-2023 Tobacco smoking status [facility] Smokes tobacco daily [facility] History of tobacco use Cigarette Smoker P [facility] Start: 07-18-2022 End: 06-28-2023 Cigarettes smoked current (pack per day) - Reported 1 [facility] Start: 11-16-2021 End: 06-28-2023 Tobacco use and exposure Smokeless tobacco non-user [facility] Start: 02-22-2024 End: 03-12-2024 Alcoholic beverage intake Lifetime non-drinker (finding) [facility] Has the [employer], [employer], or water [employer] threatened to shut off services in your home in past 12Mo No [facility] Are you now , , , , never or living with a partner? [facility] How often to you hav e a drink containing alcohol? Monthly or less [facility] How many standard drinks containing alcohol do you have on a typical day? 1 or 2 [facility] How often do you hav e 6 or more drinks on 1 occasion? Never [facility] How hard is it for y ou to pay for the very basics like food, housing, medical care, and heating Not hard at all [facility] Do you feel stress - tense, restless, nervous, or anxious, or unable to sleep at night because your mind is troubled all the time - these days [OSQ] Only a little [facility] Start: 06-28-2023 Tobacco Comment Trying to cut back-smoking about 1/2 PPD now but it depends; trying to quit so she can have shoulder replacement surgery [facility] Start: 10-09-2014 End: 04-09-2024 Sex Female (finding) [facility] Clinical Notes 10-07-2021 to 04-09-2024 Note Date & Type Note Facility 04-09-2024 Evaluation note Diagnosis Onset Date Resolution Anemia acute April 09, 2024 10:54am 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 She did get an cjyq-nqv-haaqtis Biofreeze patch with mild benefit. She regrets not getting the shingles vaccine when she had the chance. She is interested in getting it now. She did do an Internet search and found that she had to wait 12 months from the onset of symptoms before she can get the vaccine. She wants to k now if she has to wait that long. The following portions of the patient's history were reviewed and updated as appropriate: allergies, current medications, past family history, past medical history, past social history, past surgicalhistory, problem list, and medication reconciliation was completed including current medication andpost discharge medication. Review of Systems Objective Physical [...] within 12 hours or as directed by She has significant pain with her shingles. The lesions have crusted over so we will try a Lidodermpatch. She puts a 1 on for 12 [...] visit in 2 weeks. documented in this encounterPrem[facility]12-[facility]24 Miscellaneous Notes* Telephone Encounter - Do Ryan - 03/04/2024 9:50 AM EST PATIENT WENT TO THE er MONDAY FOR HER SHINGLES, THEY ARE VERY PAINFUL AND BURNING. SHE IS TAKING TYLENOL BUT ITS NOT HELPING, SHE WAS WONDERING IF YOU COULD RECOMMEND SOMETHING TO HELP. COMES IN 03/12 * Telephone Encounter - Carson Sullivan DO - 03/04/2024 9:50 AM EST She can try a Lidoderm patch if the lesions are closed. She does have pain pills available and she can not take Motrin so there is not a whole lot more to offer. Pain management can do injections butI do not think she sees pain management anymore * Telephone Encounter - Do Ryan - 03/04/2024 9:50 AM EST Notified documented in this encounterPrem[facility]12-30-2024 Telephone encounter Note* Telephone Encounter - Do Ryan - 03/04/2024 9:50 AM EST PATIENT WENT TO THE er MONDAY FOR HER SHINGLES, THEY ARE VERY PAINFUL AND BURNING. SHE IS TAKING TYLENOL BUT ITS NOT HELPING, SHE WAS WONDERING IF YOU COULD RECOMMEND SOMETHING TO HELP. COMES IN 03/12 [facility]12-30-2024 Telephone encounter Note* Telephone Encounter - Carson Sullivan DO - 03/04/2024 9:50 AM EST She can try a Lidoderm patch if the lesions are closed. She does have pain pills available and she can not take Motrin so there is not a whole lot more to offer. Pain management can do injections butI do not think she sees pain management anymore [facility]12-30-2024 Telephone encounter Note* Telephone Encounter - Do Ryan - 03/04/2024 9:50 AM EST Notified [facility]11-27-2024 Miscellaneous Notes* Telephone Encounter - Sandra Hernandez CMA - 01/31/2024 12:45 PM EST Pt requesting refill on levothyroxine. Drug Jay Em. documented in this encounterPremier Health [facility]11-27-2024 Telephone encounter Note* Telephone Encounter - Sandra Hernandez CMA - 01/31/2024 12:45 PM EST Pt requesting refill on levothyroxine. Drug Jay Em. [facility]10-24-2024 History of Present illness Narrative* Carson Sullivan DO - 12/28/2023 1:00 PM EDT Subjective Patient ID: Drea Tellez is a 78 y.o. female. Patient is using lorazepam mostly to help sleep. It does help her sleep. Pain keeps her awake when she has trouble sleeping. She is seeing pain management and they are now prescribing her oxycodone. Risks of benzodiazepines and opioids discussed. The engineering technologist recommended to stop duloxetine if it wasn't helping. She was taking it for fibromyalgia. She stopped it and hasn't noticed any change in her fibromyalgia pain. The following portions of the patient's history were reviewed and updated as appropriate: allergies, current medications, past family history, past medical history, past social history, past surgicalhistory, problem list, and medication reconciliation was completed including current medication andpost discharge medication. Review of Systems Constitutional: Negative. Respiratory: Negative. Cardiovascular: Negative. Musculoskeletal: Positive for arthralgias and back pain. Neurological: Negative. Psychiatric/Behavioral: Positive for sleep disturbance. Objective Physical Exam Vitals reviewed. Constitutional: General: She is not in acute distress. Appearance: She is not ill-appearing. Cardiovascular: Rate and Rhythm: Normal rate and regular rhythm. Heart sounds: Normal heart sounds. No murmur heard. Pulmonary: Effort: Pulmonary effort is normal. No respiratory distress. Breath sounds: Normal breath sounds. No wheezing, rhonchi or rales. Neurological: General: No focal deficit present. Mental Status: She is alert and oriented to person, place, and time. Psychiatric: Attention and Perception: Attention normal. Mood and Affect: Mood and affect normal. Speech: Speech normal. Behavior: Behavior normal. Behavior is cooperative. Thought Content: Thought content normal. Cognition and Memory: Cognition normal. Judgment: Judgment normal. Assessment/Plan Drea was seen today for controlled. Diagnoses and all orders for this visit: Anxiety She is using lorazepam prn with benefit and without side effects but using it for sleep. We discussed other sleep med alternatives that would be less risky. We will try trazodone 100mg at HS. Try 1/2tablet at first and if not effective can take 1 whole tablet or even 2 Sleep disturbance As above Cigarette smoker She was encouraged to quit. Need for immunization against influenza - Influenza, Trivalent, Adjuvanted Pt agrees to flu shot Fibromyalgia Stable off of cymbalta Postlaminectomy syndrome, not elsewhere classified F/U with pain management Hyperlipidemia, unspecified hyperlipidemia type We discussed high cholesterol. She tried multiple agents and failed although she recalls being ableto tolerate rosuvastatin in the past. Not sure why it was stopped. She is willing to try it again but will use a lower dose Other orders - traZODone (DESYREL) 100 mg tablet; Take 1 tablet (100 mg total) by mouth nightly as needed for sleep. - rosuvastatin (CRESTOR) 5 mg tablet; Take 1 tablet (5 mg total) by mouth in the morning. We discussed checking a dexa scan and she will return for the scan. 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 documented in this encounterPremier Health [facility]07-25-2024 Miscellaneous Notes* Telephone Encounter - Imani Leone - 09/28/2023 10:15 AM EDT Patient called to request pain management referral discussed at her last visit. documented in this encounterPremier Health [facility]07-25-2024 Telephone encounter Note* Telephone Encounter - Imani Leone - 09/28/2023 10:15 AM EDT Patient called to request pain management referral discussed at her last visit. [facility]07-23-2024 History of Present illness Narrative* Carson Sullivan [...] moderate relief and typically it does provide rbam-oz-xwxhmdwx relief but she notes that it does [...] mouth in the morning. documented in this encounterPremier Health [facility]06-27-2024 History of Present illness Narrative* NIRANJAN Herrera - 08/31/2023 11:58 AM EDT The OARRS/MAPPS database was reviewed today and found to be appropriate. No indication of medication diversion, or non compliance. NIRANJAN Herrera 08/31/23 1159 documented in this encounterPremier Health [facility]06-20-2024 Miscellaneous Notes* Telephone Encounter - NIRANJAN Herrera - 08/24/2023 2:[address] Sullivan it looks like per OARRs that you have been prescribing this for her but she is due for an appointment Staff please set up controlled substance agreement by the end of September with me or Dr. Sullivan documented in this encounterPremier Health [facility]06-20-2024 Telephone encounter Note* Telephone Encounter - NIRANJAN Herrera - 08/24/2023 2:[address] Sullivan it looks like per Timothy that you have been prescribing this for her but she is due for an appointment Staff please set up controlled substance agreement by the end of September with me or Dr. Sullivan [facility]06-11-2024 Miscellaneous Notes* Telephone Encounter - Julisa Sullivan - 08/15/2023 4:13 PM EDT Called pt to remind her of MAW appointment August 16 at 1140. documented in this encounterPremier Health [facility]06-11-2024 Telephone encounter Note* Telephone Encounter - Julisa Sullivan - 08/15/2023 4:13 PM EDT Called pt to remind her of MAW appointment August 16 at 1140. [facility]04-26-2024 Miscellaneous Notes* Telephone Encounter - Kim Diamond [...] plans to complete soon. documented in this encounterPremier Health [facility]04-26-2024 Telephone encounter Note* Telephone Encounter - Kim [...] regarding cologuard. Patient plans to complete soon. 800APP04-24-2024 History of Present illness Narrative* Carson Sullivan, [...] earlier this year. She is seeing the engineering technologist and her last labs showed her kidney [...] hypertension with stage 3a chronic kidney disease ([facility]) - Basic Metabolic Panel; Future Blood pressure essentially at goal. Check BMP. Follow-up with engineering technologist as directed. Acquired hypothyroidism - Thyroid profile [...] cardiovascular events and strokes. documented in this encounterPremier Health [facility]02-23-2024 History of Present illness Narrative* Good Dan APRN-UPSTREAM 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 TECHNICIAN - 04/28/2023 10:00 AM EST [address] [place] [address] Patient: Drea Tellez Date of : 1945 Encounter Date: 04/28/2023 History of Present Illness: The patient is a 77 y.o. female, an established patient, and is here for Chief Complaint Patient presents with Shoulder Pain Flare up . HPI Patient is experiencing significant pain or flare up in the left shoulder but her right shoulder isbothering her as well just not as bad. She has an appointment with Orthopedics May 10 with from [place]. The current pain is bothering her enough where she can not get to sleep and it rarely 'let us up'. She feels like her Vining barely takes the edge off her pain and she is also usingsome topical vrzy-wtg-wdyrxlq analgesics. She was also participating in some physical therapy for her shoulders which was not helping. She states opening pill bottles is difficult. She uses her left hand to do this and she has limited strength. She has tried the 5% lidocaine patches in the past forher shoulders and they have not helped the pain. She would like something to 'get her by' until shesees ortho. In the past a burst of steroids has helped take the edge off her pain. Problem List Items Addressed This Visit Musculoskeletal and Integument Lumbosacral spondylosis without myelopathy Relevant Orders Disability/Handicap Placard Other Tobacco dependence syndrome Relevant Medications nicotine (NICODERM CQ) 21 mg/24 hr Other Visit Diagnoses Primary osteoarthritis of both shoulders - Primary Past Medical, Family, and Social History Update: [...] Hyperlipidemia Hypokalemia Migraine Osteopenia Peripheral vascular disease ([facility]) Screen for colon cancer 02/04/2020 cologuard-negative Spinal [...] by mouth once daily 90 tablet 3 loratadine 10 mg capsule Take 1 tablet by mouth in the morning. lutein 10 mg tablet Take 1 tablet by mouth daily. metoprolol succinate XL (TOPROL XL) 25 mg 24 hr tablet take 1 tablet by mouth every morning 90 tablet 1 no-ete-ktico-calcium carb-K1 400 mcg-500 mg calcium-20 mcg tablet [...] 17 g by mouth in the morning. vitamin E 400 units capsule benzonatate (TESSALON PERLES) 100 mg capsule Take 1 capsule (100 mg total) by mouth 3 (three) timesa day as needed for cough. (Patient not taking: Reported on 03/30/2023) 30 capsule 0 niacin 1,000 mg tablet extended release 1 tablet with food Orally BID (Patient not taking: Reportedon 02/09/2023) nicotine (NICODERM CQ) 21 mg/[address] 1 patch on the skin daily. 30 patch 1 potassium chloride (KLOR-CON SPRINKLE) 10 MEQ CR capsule 2 capsules with food Orally Once a day (Patient not taking: Reported on 02/09/2023) predniSONE (DELTASONE) 20 mg tablet Take 1 tablet (20 mg total) by mouth in the morning and 1 tablet (20 mg total) before bedtime. Do all this for 7 days. 14 tablet 0 sertraline (ZOLOFT) 50 mg tablet take 1 tablet by mouth every morning 90 tablet 1 No current facility-administered medications for this visit. (All medications reviewed and updated by provider since last office visit or hospitalization) Allergies: Sulfa (sulfonamide antibiotics), Hydrochlorothiazide, Rkiwlpa-dbf-prk reductase inhibitors, and Nickel Tobacco History: Social [...] shortness of breath (No worse than her usual) and wheezing. Cardiovascular: Negative. Musculoskeletal: Positive for arthralgias and myalgias. Negative for gait problem, joint swelling, neck pain and neck stiffness. Neurological: Positive for weakness. Negative for numbness. Psychiatric/Behavioral: Negative. Physical Exam: BP 140/70 (BP Site: Left Arm, BP Postition: Sitting) Pulse 79 Temp 36.7 C (98 F) (Oral) Ht 160 cm (5' 3 ) Wt 65.3 kg (144 lb) SpO2 (!) 87% BMI 25.51 kg/m Physical Exam Vitals reviewed. Constitutional: Appearance: Normal appearance. HENT: Head: Normocephalic and atraumatic. Cardiovascular: Rate and Rhythm: Normal rate and regular rhythm. Heart sounds: Normal heart sounds. Pulmonary: Breath sounds: Wheezing (exiratory RLL) present. Abdominal: General: Bowel sounds are normal. Palpations: Abdomen is soft. Tenderness: There is no abdominal tenderness. Musculoskeletal: Right shoulder: Tenderness present. No swelling or crepitus. Decreased range of motion (very limited abduction). Normal strength. Normal pulse. Left shoulder: Tenderness present. No swelling or crepitus. Decreased range of motion (very limitedabduction). Normal strength. Normal pulse. Right lower leg: No edema. Left lower leg: No edema. Skin: General: Skin is warm. Capillary Refill: Capillary refill takes less than 2 seconds. Neurological: General: No focal deficit present. Mental Status: She is alert and oriented to person, place, and time. Gait: Gait abnormal (slow, stooped). Psychiatric: Mood and Affect: Mood normal. Behavior: Behavior normal. Assessment and Plan: Drea was seen today for shoulder pain. Diagnoses and all orders for this visit: Primary osteoarthritis of both shoulders Tobacco dependence syndrome Lumbosacral spondylosis without myelopathy - Disability/Handicap Placard Other orders - predniSONE (DELTASONE) 20 mg tablet; Take 1 tablet (20 mg total) by mouth in the morning and 1 tablet (20 mg total) before bedtime. Do all this for 7 days. - nicotine (NICODERM CQ) 21 mg/24 hr; Place 1 patch on the skin daily. Follow-up: Will give patient burst of steroids to help with her pain until she sees Orthopedics May 10. Sheshould also continue to use the topical analgesics and warm compresses to the area. Discussed limits of Tylenol with taking Vining. Parking pass renewed for the next 5 years due to her chronic back pain issues and inability to walkmore than 200 ft without stopping. Patient does want to quit smoking because she is aware of negative health consequences and she is trying to slowly weaned down. Will give her some nicotine patches to help her continue to wean down on the cigarettes. Patient has follow-up scheduled for Medicare wellness in August. NIRANJAN HERRERA APRN-CNP 05/01/23 0902 documented in this encounterPremier Health [facility]02-02-2024 History of Present illness Narrative* KRISTIN Contreras [...] limited to risks of scarring, darker or associate professor of biblical studies pigmentary changes, recurrence, incomplete removal and infection. 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 The pain has been going on for about 2 years or more but it has progressively worsened especially on the left side in the last 6 months. She has never received any injections in her shoulders that she can think of. She has no numbness or tingling in herarms. Problem List Items Addressed This Visit Cardiovascular and Mediastinum Peripheral vascular disease ([facility]) Genitourinary Stage 3b chronic kidney disease ([facility]) Other Visit Diagnoses Chronic pain of both [...] Hyperlipidemia Hypokalemia Migraine Osteopenia Peripheral vascular disease [place] Screen for colon cancer 02/04/2020 cologuard-negative Spinal [...] by mouth every morning 90 tablet 1 ba-daj-hifxu-calcium carb-K1 400 mcg-500 mg calcium-20 mcg tablet [...] or hospitalization) Allergies: Sulfa (sulfonamide antibiotics), Hydrochlorothiazide, Fyrbwes-vlt-fct reductase inhibitors, and Nickel Tobacco History: Social [...] Drug Screen, Urine; Future Peripheral vascular disease ([facility]) Stage 3b chronic kidney disease ([facility]) Smoker Follow-up: Will obtain new x-rays bilateral shoulders, order sent to the [facility]. Agree with stopping physical therapy if it is not making the pain any better. Patient would like a referral to Orthopedics in [place], this was placed in system. She should [...] file.Pt is due for refill 2/3 - [facility] Rx placed for this specific date. At next appt, consider lowering dose to lowest effective dose to help control pain. NIRANJAN HERRERA APRN-CNP 04/02/23 1244 documented in this encounterMer[facility] West HospitalTrov [facility] [id number] Evaluation note* Encounter Date Diagnosis Assessment Notes [...] WNL I asked the patient to continue fmmt-afm-gdfyhne vitamin D supplement 1999Mar, Nephrolithiasis (ICD-10 - N20.0) Renal ultrasound shows nonobstructive bilateral renal calculi which are small in size. I asked the patient to continue ample water intake [facility] Other [id number] History of Present illness Narrative* NIRANJAN Herrera - 03/03/2023 1:29 PM EST The OARRS/MAPPS database was reviewed today and found to be appropriate. No indication of medication diversion, or non compliance. Pt is due for refill 03/11/22, last filled 02/08/[address] Sullivan who is out of town. NIRANJAN Herrera 03/03/23 1332 documented [facility] Miscellaneous Notes* Telephone Encounter - Farnaz Bennett CMA - 03/02/2023 2:51 PM EST Pt called and would like a refill on her NORCO. Pharmacy is listed and correct. * Telephone Encounter - NIRANJAN Herrera - 03/02/2023 2:51 PM EST Pt is due for refill 03/11 - I will send but pharmacy will not fill until this time documented in this encounterPrem[facility]12-28-2023 Telephone encounter Note* Telephone Encounter - Farnaz Bennett CMA - 03/02/2023 2:51 PM EST Pt called and would like a refill on her NORCO. Pharmacy is listed and correct. [facility] [id number] Telephone encounter Note* Telephone Encounter - NIRANJAN Herrera - 03/02/2023 2:51 PM EST Pt is due for refill 03/11 - I will send but pharmacy will not fill until this time [facility]08-08-2023 Evaluation note* Encounter Date Diagnosis Assessment Notes [...] WNL I asked the patient to continue kivg-wjy-gmezwag vitamin D supplement 1999Oct, Nephrolithiasis (ICD-10 - N20.0) Renal ultrasound shows nonobstructive bilateral renal calculi which are small in size. I asked the patient to continue ample water intake [facility] Other 04-04-2023 Evaluation note* Encounter Date Diagnosis [...] is low at 19. I patient with czxa-bil-byzhcnw vitamin D supplement 1999Jun, Nephrolithiasis (ICD-10 - N20.0) Renal ultrasound shows nonobstructive bilateral renal calculi which are small in size. I asked the patient to continue ample water intake [facility] Other 02-21-2023 Evaluation note* Encounter Date Diagnosis [...] at home and to follow low-salt diet [facility] Other 09-01-2022 NoteOPERATIVE NOTE OPERATION DATE: 11/04/2021 [...] ensuring mobility, phacoemulsification was performed in a hnhqang-uuk-xhuqbn-type fashion. After all nuclear material had been [...] up the following day for postoperative care.[facility] [id number] NoteHISTORY AND PHYSICAL EXAMINATION Date:11/03/2021 HISTORY: Patient [...] decline other than that of cataract. 2. [id number]-77-Ghq patient was briefed in the office and [...] and go forward with this elective procedure.[facility], [id number] NoteOPERATIVE NOTE OPERATION DATE: 10/07/2021 SURGEON: Sabrina [...] ensuring mobility, phacoemulsification was performed in a uktmype-bea-suqhho-type fashion. After all nuclear material had been [...] up the following day for postoperative care.[facility] [place] 10-07-2021 NoteHISTORY AND PHYSICAL EXAMINATION Date:10/06/2021 HISTORY: [...] decline other than that of cataract. 2. 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 documented [facility] encounter [facility]* Diagnosis Lumbosacral spondylosis without myelopathy documented in this encounter [facility]* Diagnosis Chronic pain of both shoulders- Primary Peripheral vascular disease ([facility]) Unspecified peripheral vascular disease Stage 3b chronic kidney disease ([facility]) Smoker Tobacco use disorder Lumbosacral spondylosis without myelopathy documented in this encounter [facility]* Diagnosis Essential hypertension Unspecified essential hypertension documented in this encounter [facility]* Diagnosis Primary osteoarthritis of both shoulders- Primary Tobacco dependence syndrome Tobacco use disorder Lumbosacral spondylosis without myelopathy [facility] Diagnosis Lumbosacral spondylosis without myelopathy documented in this encounter [facility]* Diagnosis Lumbosacral spondylosis without myelopathy documented in this encounter [facility]* Diagnosis Special screening for malignant neoplasm of colon- Primary Special screening for malignant neoplasms, colon documented in this encounter [facility]* Diagnosis 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 ([facility])- Primary Acquired hypothyroidism Unspecified hypothyroidism Fibromyalgia Unspecified myalgia and myositis Anxiety Anxiety state, unspecified Postlaminectomy syndrome, not elsewhere classified Sleep disturbance Unspecified sleep disturbance Tobacco dependence syndrome Tobacco use disorder Spinal stenosis of lumbar region without neurogenic claudication Hypokalemia Hypopotassemia Hyperlipidemia, unspecified hyperlipidemia type documented in this encounter [facility]* Diagnosis Postlaminectomy syndrome, not elsewhere classified- Primary documented in this encounter [facility]* Diagnosis Postlaminectomy syndrome, not elsewhere classified documented in this encounter [facility]* Diagnosis Postlaminectomy syndrome, not elsewhere classified documented in this encounter [facility]* Diagnosis Fibromyalgia Unspecified myalgia and myositis documented in this encounter [facility]* Diagnosis Essential hypertension Unspecified essential hypertension documented in this encounter [facility]* Diagnosis Anxiety Anxiety state, unspecified documented in this encounter [facility]* Diagnosis Localized osteoarthrosis of both shoulder regions- Primary Postlaminectomy syndrome, not elsewhere classified Tobacco dependence syndrome Tobacco use disorder Fibromyalgia Unspecified myalgia and myositis documented in this encounter [facility]* Diagnosis Medicare annual wellness visit, subsequent- Primary Screening for depression documented in this encounter [facility]* Diagnosis Anxiety- Primary Anxiety state, unspecified Sleep disturbance Unspecified sleep disturbance Cigarette smoker Tobacco use disorder Need for immunization against influenza Need for prophylactic vaccination and inoculation against influenza Fibromyalgia Unspecified myalgia and myositis Postlaminectomy syndrome, not elsewhere classified Hyperlipidemia, unspecified hyperlipidemia type documented in this encounter [facility]* Diagnosis Essential hypertension Unspecified essential hypertension documented in this encounter [facility] SystemHistory general Narrative - Reported* Type Description [...] cataract surgery -11/2021 Hospitalization History See Sx [employer] Other History general Narrative - Reported* Type [...] CANCER BIOPSY ON NOSE Hospitalization History See [employer] Other InstructionsNot on filedocumented in this encounter [...] Care Everywhere. * Shoulder Pain Discharge Instructions (Spanish) documented in this encounterProMedica Health SystemInstructionsNot on file documented in this encounterProMedica Health SystemInstructions* Attachments The following attachments cannot be sent through Care Everywhere. * Shoulder Pain Discharge Instructions (Spanish) documented in this encounterProMedica Health SystemInstructionsNot on file documented in this encounterProMedica Health SystemInstructionsNot on file documented in this encounterProMedica Health SystemInstructionsNot on file documented in this encounterProMedica Health SystemInstructionsNot on file documented in this encounterProMedica Health SystemInstructionsNot on file documented in this encounterProMedica Health SystemInstructionsNot on file documented in this encounterProRegency Hospital Cleveland EastInstructionsNot on file documented in this encounterPremier Health [facility] NorthReason for referral (narrative)* Consultation (Routine) - Pending Review Specialty Diagnoses / Procedures Referred By Darby mon Referred To Contact Orthopedic Surgery Diagnoses Chronic pain of both shoulders Good Dan APRN-CNP [address] [place] [address] Rosales Hylton MD [address] [place] [address] Referral ID Status Reason Start Date Expiration Date Visits Requested Visits Authorized [id number] Pending Review Specialty Services Required 03/30/2023 03/29/2024 1 1 [facility] Summary Purpose Family History Relationship Condition Age at Onset Recorded Date/T anne father Malignant neoplasm Unknown Unknown Heart disease Unknown family member Unknown mother Diabetes mellitus Unknown Hypertension Unknown son Unknown sister Malignant neoplasm Unknown Advance Directives Advance Directive Response Recorded Date/ Time Advance Directives No February 05, 2018 4:05pm Advance Directive Response Recorded Date/ Time Advance Directives No February 05, 2018 3:05pm Chief Complaint and Reason for Visit Chief Complaint RENAL 6 month f/u Reason for Visit Anemia 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 Chronic kidney disease, stage 3a Hyponatremia Nephrolithiasis Vitamin D deficiency Chief Complaint Admit Date RENAL 6 MONTH F/U April 09, 2024 1 0:54am Reason for Visit Admit Date Anemia April 09, 2024 1 0:54am 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 April 09, 2 025 10:54am Chronic kidney disease, stage 3a uar y 2024 10:54am Hyponatremia April 09, 2024 1 0:54am Nephrolithiasis April 09, 2024 1 0:54am Smoking greater than 40 pack years u fatuma2024 10:54am Vitamin D deficiency April 09, 2024 10:54am Reason for Referral Specialty Diagnoses / Procedures Referred By Darby mon Referred To Contact Diagnoses Anxiety Carson Sullivan, DO [address] [place] [address] Referral ID Status Reason Start Date Expiration Date V isits Requested Visits Authorized [id number] Pending Review 1 1 Specialty Diagnoses / Procedures Referred By Contac t Referred To Contact Diagnoses Lumbosacral spondylosis without myelopathy Procedures Disability/Handicap Good Tran, DESIGNER WRITER-UPSTREAM 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 [address] [place] [address] Referral ID Status Reason Start Date Expiration Date V isits Requested Visits Authorized [id number] Pending Review 04/28/2023 04/27/2024 1 1 Additional Source Comments INFORMATION SOURCE (unrecogn ized section and content) DATE CREATED AUTHOR 05/30/2021 [facility] DATE CREATED AUTHOR AUTHOR'S ORGANIZ ATION 06/10/2022 [facility] DATE CREATED AUTHOR AUTHOR'S ORGANIZ ATION 04/09/2023 [facility] DATE CREATED AUTHOR AUTHOR'S ORGANIZ ATION 05/14/2023 [facility] DATE CREATED AUTHOR AUTHOR'S ORGANIZ ATION 06/30/2023 [facility] DATE CREATED AUTHOR AUTHOR'S ORGANIZ ATION 07/16/2023 [facility] DATE CREATED AUTHOR AUTHOR'S ORGANIZ ATION 12/31/2023 [facility] DATE CREATED AUTHOR AUTHOR'S ORGANIZ ATION 03/18/2024 [facility] REASON FOR VISIT (unrecogniz ed section and content) Reason Comments Follow-up Reason Comments Herpes Zoster shingles Reason Comments Med Refill Reason Comments Follow-up Follow up shoulders Reason Onset Date Comments Med Refill 04/17/2023 Reason Comments Shoulder Pain Flare up Reason Onset Date Comments Med Refill 05/02/2023 Reason Comments Hypertension Hypothyroidism Reason Onset Date Comments Preventative Screening 06/30/2023 Reason Onset Date Comments Med Refill 07/26/2023 Reason Onset Date Comments Med Refill 08/24/2023 Reason Onset Date Comments Med Refill 10/10/2023 Reason Comments controlled sub Reason Comments MAW Reason Comments controlled Care Teams (unrecognized sec tion and content) Team Status: Active Member Role Status Dates Carson KalyanDO kye Primary Care Provider Active Team Status: Active Member Role Status Dates Carson Sullivan DO Primary Care Provider Active Start: October 17, 2023 Bri Alonso MD Attending Provider Active Star t: October 17, 2023 Team Status: Inactive Member Role Status Dates Carson KalyanDO kye Primary Care Provider Active Start: October 24, 2023 End: October 24, 2023 Bri Alonso MD Attending Provider Active Star t: October 24, 2023 End: October 24, 2023 Bath House Attendant Relationship Specialty Start Date End Date Carson Sullivan DO [address] [place] [address] PCP - General Family Medicine 02/14/17 Bath House Attendant Relationship Specialty Start Date End Date Carson Sullivan DO [address] [place] [address] PCP - General Family Medicine 02/14/17 [facility] House Attendant Relationship Specialty Start Date End Date Carson Sullivan DO [address] [place] [address] PCP - General Family Medicine 02/14/17 Team Status: Active Member Role Status Dates Carson Sullivan DO Primary Care Provider Active Start: April 02, 2024 Bri Alonso MD Attending Provider Active Star t: April 02, 2024 Team Status: Inactive Member Role Status Dates Carson KalyanDO kye Primary Care Provider Active Start: April 09, 2024 End: April 09, 2024 Bri Alonso MD Attending Provider Active Star t: April 09, 2024 End: April 09, 2024 Bath House Attendant Relationship Specialty Start Date End Date Carson Sullivan DO [address], [place] [address] PCP - General Family Medicine 02/14/17 Bath House Attendant Relationship Specialty Start Date End Date Carson Sullivan DO [address], [place] [address] PCP - General Family Medicine 02/14/17 Bath House Attendant Relationship Specialty Start Date End Date KalyantyroneCarson cordero DO [address] [place] [address] PCP - General Family Medicine 02/14/17 Bath House Attendant Relationship Specialty Start Date End Date KalyantyroneaCrson cordero DO [address] [place] [address] PCP - General Family Medicine 02/14/17 Bath House Attendant Relationship Specialty Start Date End Date KalyantyroneCarson cordero DO [address] [place] [address] PCP - General Family Medicine 02/14/17 Bath House Attendant Relationship Specialty Start Date End Date KalyantyroneCarson cordero DO [address] [place] [address] PCP - General Family Medicine 02/14/17 Bath House Attendant Relationship Specialty Start Date End Date KalyantyroneCarson cordero DO [address] [place] [address] PCP - General Family Medicine 02/14/17 Bath House Attendant Relationship Specialty Start Date End Date KalyantyroneCarson cordero DO [address] [place] [address] PCP - General Family Medicine 02/14/17 Bath House Attendant Relationship Specialty Start Date End Date Carson Sullivan DO [address], [place] [address] PCP - [facility] Family Medicine 02/14/17 Bath House Attendant Relationship Specialty Start Date End Date Carson Sullivan DO [address], [place] [address] PCP - General Family Medicine 02/14/17 Bath House Attendant Relationship Specialty Start Date End Date Carson Sullivan DO [address], [place] [address] PCP - General Family Medicine 02/14/17 Bath House Attendant Relationship Specialty Start Date End Date Carson Sullivan DO [address], [place] [address] PCP - General Family Medicine 02/14/17 Bath House Attendant Relationship Specialty Start Date End Date Carson Sullivan DO [address], [place] [address] PCP - General Family Medicine 02/14/17 Bath House Attendant Relationship Specialty Start Date End Date Carson Sullivan DO [address], [place] [address] PCP - General Family Medicine 02/14/17 Goals [...] BE BASED ON THE PRIMARY CLINICAL RECORDS. [facility] provides no warranty or guarantee of the accuracy or completeness of information in this document.
== END 2024-05-22 10:07 | disposition home or self-care (01) ==
LOC: CT 10:06
PROVIDERS: PCP Family Medicine; Visit Provider Internal Medicine
DX: R91.8 Other nonspecific abnormal finding of lung field (principal)
CPT/HCPCS: 71250

== ENCOUNTER 2024-06-26 12:55 | Outpatient (OUT) | payer MEDICARE, SELFPAY ==
--- NOTE | 2024-06-26 13:23 | PM.CN ---
Consult Note: HPI Data of Consult Patient: known to practice within the last 3 years Requesting Physician: Cata Wang NP Primary Care Provider: ADALGISA DE JESUS Consult Narrative Reason for consult: f/u Narrative: Drea Tellez a pleasant 79 year old female presents for evaluation of chronic bilateral shoulder and low back pain. pt has a longstanding hx of low back pain over 25 years and worsening bilateral shoulder pain over the last 2 days. pt has not been able to tolerate PT or HEP due to pain. failed tylenol, heat, ice. cannot take NSAIDs with CKD. currently on oxycodone 5mg 5x/day PRN moderate to severe pain without side effects, notes moderate pain relief for 4 hours with functional improvement. denies falls since last visit. pt had an evaluation with Dr Bell in the past, and another orthopedic surgeon at [facility] yesterday, but would like another opinioin. she is interested in having her right then left shoulder replaced as she has failed joint injections. pain today 5/10 increasing to 10/10 with lifting and ROM. cc:: CC: Cata Wang NP Review of Systems ROS Status of ROS 10 or more systems reviewed and unremarkable except as noted in history and below Musculoskeletal Reports: back pain, extremity pain and joint pain PFSH PFSH Social History Little interest or pleasure in doing things: not at all Feeling down, depressed, or hopeless: not at all Meds Home Medications and Allergies Home Medications ?Medication ?Instructions ?Recorded ?Confirmed ?Type amlodipine 10 mg tablet (Norvasc) 10 mg PO DAILY 10/16/23 03/01/24 History ascorbic acid (vitamin C) 500 mg mg PO 10/16/23 History capsule aspirin 81 mg tablet,delayed 81 mg PO DAILY 10/16/23 03/01/24 History release (Garth Low Dose Aspirin) cholecalciferol (vitamin D3) 125 125 mcg PO DAILY 10/16/23 03/01/24 History mcg (5,000 unit) capsule duloxetine 60 mg capsule,delayed 60 mg PO DAILY 10/16/23 03/01/24 History release levothyroxine 112 mcg tablet 112 mcg PO DAILY 10/16/23 03/01/24 History (Euthyrox) lisinopril 40 mg tablet (Zestril) 40 mg PO DAILY 10/16/23 03/01/24 History lorazepam 1 mg tablet 1 mg PO Q12H PRN agitation 10/16/23 03/01/24 History lutein 20 mg capsule 20 mg PO DAILY 10/16/23 10/16/23 History metoprolol succinate 25 mg 25 mg PO DAILY 10/16/23 03/01/24 History tablet,extended release 24 hr (Toprol XL) omeprazole 20 mg capsule,delayed 20 mg PO BID 10/16/23 03/01/24 History release oxycodone 5 mg capsule 5 mg PO .COMPLEX 10/16/23 03/01/24 History valacyclovir 1 gram tablet 1,000 mg PO Q8H 7 days #21 tabs 03/01/24 Rx naloxone 4 mg/actuation nasal 1 spray intranasal Q2M #1 ea 03/20/24 Rx spray (Narcan) oxycodone 5 mg tablet See Rx Instructions .Route 03/20/24 Rx .COMPLEX PRN pain #150 tabs oxycodone 5 mg tablet 5 mg PO .5 times/day PRN pain #150 04/23/24 Rx tabs oxycodone 5 mg tablet See Rx Instructions .Route 05/21/24 Rx .COMPLEX PRN pain #150 tabs oxycodone 5 mg tablet 5 mg PO .5x/day PRN pain #150 tabs 06/21/24 Rx Allergies Allergy/AdvReac Type Severity Reaction Status Date / Time hydrochlorothiazide Allergy Unknown Unknown Verified 03/01/24 14:24 Xwpamad-IEN-IwO Reductase Allergy Unknown Unknown Verified 03/01/24 14:24 Inhibitor Sulfa (Sulfonamide Allergy Unknown Unknown Verified 03/01/24 14:24 Antibiotics) Exam Constitutional Documenting provider has reviewed patient's vital signs: yes Common normals: no apparent distress, oriented x3, healthy appearing, alert and well nourished General appearance: cooperative HENND Common normals: normocephalic, hearing grossly normal bilaterally and moist oral mucous membranes Head and scalp: normocephalic Eye Common normals: PERRL Pupil: PERRL Neck & C-Spine Common normals: full ROM General: normal visual inspection Chest Common normals: inspection of chest normal Respiratory Common normals: normal respiratory effort, no retractions and no use of accessory muscles Back & Pelvis Lumbar spine/lower back: ROM limited, pain with ROM and straight leg raise negative bilaterally Extremity Right upper extremity: shoulder joint Left upper extremity: shoulder joint Other: pain over bilateral AC joints increased pain with crossbody adduction, unable to perform scratch test and empty can test due to pain and decreased ROM Neuro Common normals: oriented x3 Sensorium/orientation: alert Psych Common normals: mental status grossly normal, thought process normal, cooperative, affect normal, speech normal and activity/motor behavior normal Speech: normal speech Thought process: normal thought process Results Additional Findings Additional findings: If on a controlled substance or opioids, I have checked an OAR[place] report on this patient and there are no aberrancies noted in the prescribing history.??If on a controlled substance or opioid a drug screen was completed and reviewed within the last year, and if there has not been a drug screen completed we ordered one today to monitor higher risk, state monitored pain medication use. As part of providing excellent, safe, comprehensive care, the following was completed at our patient's visit: 1. A medication reconciliation and review to ensure accurate knowledge of current/active medications, including asking our patients to inform us about any jtwi-ank-jjzocik medications or herbal remedies/nutritional supplements/alternative remedies. 2. A review to specifically ensure our patients have had annual screening for screening for depression, screening for tobacco use, and screening for unhealthy alcohol use. For concerning screenings had a discussion with the patient, provided patient education, and recommended follow-up with primary care provider when appropriate. If patient noted with a risk of falling, they received education on strength, gait, and balance training to prevent future risk of falling. Portions of this note may have been carried over from the previous visit and updated as appropriate. Please note this office utilizes paper charting in addition to the electronic medical record. A list of current medications, vitals, and PMH is available there as the clinical staff outside of myself do not have access to [employer] charting during the clinic day operations. As part of providing quality comprehensive care the current medications, vitals, and PMH were reviewed in the paper chart. Assessment and Plan Assessment and Plan (1) Bilateral shoulder pain: Qualifiers: Chronicity: chronic Qualified Code(s): M25.511 - Pain in right shoulder; M25.512 - Pain in left shoulder; G89.29 - Other chronic pain (2) Lumbar postlaminectomy syndrome: (3) Cervical postlaminectomy syndrome: (4) Lumbar stenosis with neurogenic claudication: (5) Chronic prescription opiate use: (6) Osteoarthritis of shoulders, bilateral: Plan 79 year old female with chronic low back and bilateral shoulder pain. as noted above has failed to benefit from heat, ice, tylenol, and cannot take NSAIDs. is not interested in interventional pain management at this time, failed injections in bilateral shoulders and lumbar spine with prior pain management. we did discuss bilateral suprascapular/axillary NB working towards RFA in the future. refer to [facility] orthopedics for evaluation of bilateral shoulder pain/OA and is interested in joint replacement surgery. patient finds moderate benefit to current medication regimen without side effects, although moderate to high risk for opioid therapy due to age and CKD she find the medications to be essential to preserving her quality of life and functional ability. narcan previously discussed and prescribed. f/u 3 months, sooner if needed
== END 2024-06-26 12:56 | disposition home or self-care (01) ==
LOC: PM 12:56
PROVIDERS: PCP Family Medicine; Visit Provider Nurse Practitioner
DX: M25.511 Pain in right shoulder (principal); M25.512 Pain in left shoulder; G89.29 Other chronic pain; M96.1 Postlaminectomy syndrome, not elsewhere classified; M48.062 Spinal stenosis, lumbar region with neurogenic claudication; Z79.891 Long term (current) use of opiate analgesic; M19.012 Primary osteoarthritis, left shoulder; M19.011 Primary osteoarthritis, right shoulder
CPT/HCPCS: G0463

== ENCOUNTER 2024-09-19 13:25 | Outpatient (OUT) | payer MEDICARE, SELFPAY ==
--- NOTE | 2024-09-19 13:46 | PM.CN ---
Consult Note: HPI Data of Consult Patient: known to practice within the last 3 years Requesting Physician: Cata Wang NP Primary Care Provider: ADALGISA DE JESUS Consult Narrative Reason for consult: f/u Narrative: Drea Tellez a pleasant 79 year old female presents for evaluation of chronic bilateral shoulder and low back pain. pt has a longstanding hx of low back pain over 25 years and chronic moderate to severe bilateral shoulder pain. failed tylenol, heat, ice. cannot take NSAIDs with CKD. currently on oxycodone 5mg 5x/day PRN moderate to severe pain without side effects, notes moderate pain relief for 4 hours with functional improvement. denies falls since last visit. since last visit pt has been engaged in HEP with significant improvement in bilateral shoulder pain and ROM, is no longer considering joint replacement surgery. pain and functional ability well controlled with current medication regimen. cc:: CC: Cata Wang NP Review of Systems ROS Status of ROS 10 or more systems reviewed and unremarkable except as noted in history and below Musculoskeletal Reports: back pain, extremity pain and joint pain PFSH PFSH Social History Little interest or pleasure in doing things: not at all Feeling down, depressed, or hopeless: not at all Meds Home Medications and Allergies Home Medications �Medication �Instructions �Recorded �Confirmed �Type amlodipine 10 mg tablet (Norvasc) 10 mg PO DAILY 10/16/23 03/01/24 History ascorbic acid (vitamin C) 500 mg mg PO 10/16/23 History capsule aspirin 81 mg tablet,delayed 81 mg PO DAILY 10/16/23 03/01/24 History release (Garth Low Dose Aspirin) cholecalciferol (vitamin D3) 125 125 mcg PO DAILY 10/16/23 03/01/24 History mcg (5,000 unit) capsule duloxetine 60 mg capsule,delayed 60 mg PO DAILY 10/16/23 03/01/24 History release levothyroxine 112 mcg tablet 112 mcg PO DAILY 10/16/23 03/01/24 History (Euthyrox) lisinopril 40 mg tablet (Zestril) 40 mg PO DAILY 10/16/23 03/01/24 History lorazepam 1 mg tablet 1 mg PO Q12H PRN agitation 10/16/23 03/01/24 History lutein 20 mg capsule 20 mg PO DAILY 10/16/23 10/16/23 History metoprolol succinate 25 mg 25 mg PO DAILY 10/16/23 03/01/24 History tablet,extended release 24 hr (Toprol XL) omeprazole 20 mg capsule,delayed 20 mg PO BID 10/16/23 03/01/24 History release oxycodone 5 mg capsule 5 mg PO .COMPLEX 10/16/23 03/01/24 History valacyclovir 1 gram tablet 1,000 mg PO Q8H 7 days #21 tabs 03/01/24 Rx naloxone 4 mg/actuation nasal 1 spray intranasal Q2M #1 ea 03/20/24 Rx spray (Narcan) oxycodone 5 mg tablet See Rx Instructions .Route 03/20/24 Rx .COMPLEX PRN pain #150 tabs oxycodone 5 mg tablet 5 mg PO .5 times/day PRN pain #150 04/23/24 Rx tabs oxycodone 5 mg tablet See Rx Instructions .Route 05/21/24 Rx .COMPLEX PRN pain #150 tabs oxycodone 5 mg tablet 5 mg PO .5x/day PRN pain #150 tabs 06/21/24 Rx oxycodone-acetaminophen 5 mg-325 1 tab PO Q4H PRN pain #150 tabs 07/22/24 Rx mg tablet (Percocet) oxycodone 5 mg tablet See Rx Instructions .Route 07/24/24 Rx .COMPLEX PRN pain #150 tabs oxycodone 5 mg tablet See Rx Instructions .Route 08/21/24 Rx .COMPLEX PRN pain #150 tabs Allergies Allergy/AdvReac Type Severity Reaction Status Date / Time hydrochlorothiazide Allergy Unknown Unknown Verified 03/01/24 14:24 Gfyppyd-CMK-IpY Reductase Allergy Unknown Unknown Verified 03/01/24 14:24 Inhibitor Sulfa (Sulfonamide Allergy Unknown Unknown Verified 03/01/24 14:24 Antibiotics) Exam Constitutional Documenting provider has reviewed patient's vital signs: yes Common normals: no apparent distress, oriented x3, healthy appearing, alert and well nourished General appearance: cooperative HENAL Common normals: normocephalic, hearing grossly normal bilaterally and moist oral mucous membranes Head and scalp: normocephalic Eye Common normals: PERRL Pupil: PERRL Neck & C-Spine Common normals: full ROM General: normal visual inspection Chest Common normals: inspection of chest normal Respiratory Common normals: normal respiratory effort, no retractions and no use of accessory muscles Back & Pelvis Lumbar spine/lower back: ROM limited, pain with ROM and straight leg raise negative bilaterally Extremity Right upper extremity: shoulder joint Left upper extremity: shoulder joint Other: pain over bilateral AC joints increased pain with crossbody adduction Neuro Common normals: oriented x3 Sensorium/orientation: alert Psych Common normals: mental status grossly normal, thought process normal, cooperative, affect normal, speech normal and activity/motor behavior normal Speech: normal speech Thought process: normal thought process Results Additional Findings Additional findings: If on a controlled substance or opioids, I have checked an OARRS report on this patient and there are no aberrancies noted in the prescribing history.��If on a controlled substance or opioid a drug screen was completed and reviewed within the last year, and if there has not been a drug screen completed we ordered one today to monitor higher risk, state monitored pain medication use. As part of providing excellent, safe, comprehensive care, the following was completed at our patient's visit: 1. A medication reconciliation and review to ensure accurate knowledge of current/active medications, including asking our patients to inform us about any zavo-dwa-oeufbkl medications or herbal remedies/nutritional supplements/alternative remedies. 2. A review to specifically ensure our patients have had annual screening for screening for depression, screening for tobacco use, and screening for unhealthy alcohol use. For concerning screenings had a discussion with the patient, provided patient education, and recommended follow-up with primary care provider when appropriate. If patient noted with a risk of falling, they received education on strength, gait, and balance training to prevent future risk of falling. Portions of this note may have been carried over from the previous visit and updated as appropriate. Please note this office utilizes paper charting in addition to the electronic medical record. A list of current medications, vitals, and PMH is available there as the clinical staff outside of myself do not have access to [employer] charting during the clinic day operations. As part of providing quality comprehensive care the current medications, vitals, and PMH were reviewed in the paper chart. Assessment and Plan Assessment and Plan (1) Bilateral shoulder pain: Qualifiers: Chronicity: chronic Qualified Code(s): M25.511 - Pain in right shoulder; M25.512 - Pain in left shoulder; G89.29 - Other chronic pain (2) Lumbar postlaminectomy syndrome: (3) Cervical postlaminectomy syndrome: (4) Lumbar stenosis with neurogenic claudication: (5) Chronic prescription opiate use: Assessment and Plan: I feel these medications are improving the patient's quality of life and allow them to tolerate activities of daily living as well as participate in recreational activity.� The patient does not report intolerable side effects. The patient is NOT opioid naive and non-pharmacologic and non-opioid treatment has failed to significantly relieve the patient's pain and improve functionality. The patient has a diagnosis that is related to a somatic or visceral pain etiology. � �� I reviewed with the patient the potential risks and side effects with the use of� opioid medications including but not limited to respiratory depression,� sedation, and even . Within the last 12 months I have verified the patient has access to naloxone should� these effects occur. The patient was advised to let� their family know they had Naloxone in case they would need to administer� the medication. I advised the patient to avoid the use of any other� sedation substances including alcohol, THC, and benzodiazepines while� taking opioid medications due to the risk of compounding side effects and� detrimental outcomes. within the last 12 months I have reviewed the AUTOMATIC SHIRRING MACHINE OPERATOR, pain treatment agreement and urine drug screen.� �� A drug screen was completed within the last year, and no aberrancies were noted regarding their use of controlled substances. The patient understands they are subject to the terms and conditions of the pain contract that they have signed. � �� I have checked an OARRS report on this patient today and there are no aberrancies noted in the prescribing history.� (6) Osteoarthritis of shoulders, bilateral: Plan 79 year old female with chronic low back and bilateral shoulder pain. as noted above has failed to benefit from heat, ice, tylenol, and cannot take NSAIDs. is not interested in interventional pain management at this time, failed injections in bilateral shoulders and lumbar spine with prior pain management. patient finds moderate benefit to current medication regimen without side effects, although moderate to high risk for opioid therapy due to age and CKD she find the medications to be essential to preserving her quality of life and functional ability. narcan previously discussed and prescribed. f/u 3 months, sooner if needed
== END 2024-09-19 13:26 | disposition home or self-care (01) ==
LOC: PM 13:25
PROVIDERS: PCP Family Medicine; Visit Provider Nurse Practitioner
DX: M25.511 Pain in right shoulder (principal); M25.512 Pain in left shoulder; G89.29 Other chronic pain; M96.1 Postlaminectomy syndrome, not elsewhere classified; M48.062 Spinal stenosis, lumbar region with neurogenic claudication; Z79.891 Long term (current) use of opiate analgesic; M19.012 Primary osteoarthritis, left shoulder; M19.011 Primary osteoarthritis, right shoulder
CPT/HCPCS: G0463

== ENCOUNTER 2024-10-29 12:57 | Outpatient (OUT) | payer MEDICARE, SELFPAY ==
--- OUTSIDE RECORDS SUMMARY | 2024-10-29 13:02 | XMS_ITS | Encounter Summary ---
[id number] [address] [place] [address] Care Team Providers Care Research Associate Name Role Phone Carson Sullivan DO Primary Care Provider [phone] Encounter Details Date Type Department Care Team (Late st Contact Info) Description 10/20/2022 Telephone [facility] - Family Medicine [address] [place] [id number] Carson Sullivan DO [address], [facility] [place] [address] Social History Tobacco Use Types Packs/Day Years Used Date Smoking Tobacco: Every Day Cigarettes 1 52 Smokeless Tobacco: Never Alcohol Use Standard Drinks/Week Comments Never 0 (1 standard drink = 0.6 oz pur e alcohol) Social Connection and Isolat ion Panel [NHANES] Answer Date Recorded In a typical week, how many times do you talk on the phone with family, friends, or neighbors? More than three times a week 08/02/2022 How often do you get togethe r with friends or relatives? Once a week 08/02/2022 How often do you attend chur ch or cheondoism services? More than 4 times per year 08/02/2022 Do you belong to any clubs o r organizations such as jewish groups, unions, fraternal or athletic groups, or school groups? No 08/02/2022 How often do you attend meet ings of the clubs or organizations you belong to? Never 08/02/2022 Are you , , di vorced, , never , or living with a partner? 08/02/2022 AUDIT-C Answer Date Recorded Q1: How often do you have a drink containing alc ohol? Monthly or less 11/16/2021 Q2: How many drinks containi ng alcohol do you have on a typical day when you are drinking? 1 or 2 11/16/2021 Q3: How often do you have si x or more drinks on one occasion? Never 11/16/2021 Overall Financial Resource Strain (CARDIA) Answe r Date Recorded How hard is it for you to pa y for the very basics like food, housing, medical care, and heating? Not hard at all 07/18/2022 PHQ-2 Answer Date Recorded Total Score 0 10/19/2022 [facility] ional [facility] - Occupational Stress Questionnaire Answer Date Recorded Do you feel stress - tense, restless, nervous, or anxious, or unable to sleep at night because your mind is troubled all the time - these days? Only a little 07/18/2022 Exercise Vital Sign Answer Date Recorde d On average, how many days pe r week do you engage in moderate to strenuous exercise (like a brisk walk)? 2 days 08/02/2022 On average, how many minutes do you engage in exercise at this level? 20 min 08/02/2022 PRAPARE - Transportation Answer Date Re corded In the past 12 months, has l ack of transportation kept you from medical appointments or from getting medications? No 07/04 In the past 12 months, has l ack of transportation kept you from meetings, work, or from getting things needed for daily living? No 07/18/2022 Housing Instability Answer Date Recorde d Are you worried or concerned that in the next two months you may not have stable housing that you own, rent or stay in as a part of a household? No 07/18/2022 Childcare Answer Date Recorded Do problems getting child ca re make it difficult for you to work or study? No 07/18/2022 Employment Answer Date Recorded Do you need help finding a [facility] career center and/or a training program? No 07/18/2022 Hunger Screening Answer Date Recorded Within the past 12 months we worried whether our food would run out before we got money to buy more. Never True 10/19/2022 Within the past 12 months th e food we bought just didn't last and we didn't have money to get more. Never True 10/19/2022 Purpose - Life Answer Date Recorded I have a purpose and direction in my life. Stron gly Agree 07/18/2022 Comments Unknown Sex and Gender Information Value Date Recorded Sex Assigned at Not on file Legal Sex Female 11:29 AM EDT Gender Identity Not on file Sexual Orientation Not on file documented as of this encounter Miscellaneous Notes * Telephone Encounter - Do Ryan - 10/20/2022 4:13 PM EDT Patient called and said she's been having a cough for the last few days but its mostly when she lays down, she was wondering if you could send in some tesslon pearls for her, I also let her know you might want to see her first but wasn't sure * Telephone Encounter - Carson Sullivan DO - 10/20/2022 4:13 PM EDT I will send them in documented in this encounter Plan of Treatment Upcoming Encounters Date Type Department Care Team (Late st Contact Info) Description 12/06/2024 11:15 AM EDT Office Visit [facility] - [facility] [address] [place] [address] Carson Sullivan DO [address] [place] [address] 10/14/2025 1:00 PM EDT Office Visit [facility] - Family Medicine [address] [place] [address] documented as of this encounter Visit Diagnoses Not on filedocumented in this encounter Additional Health Concerns Assessment Noted Time PHQ-9 Depression Total Score: 0 10/20/19 23 9:40 AM EDT documented as of this encounter Care Teams Research Associate Relationship Specialty Start Date End Date Carson Sullivan DO [address], [place] [address] PCP - General Family Medicine 02/14/17 documented as of this encounter
--- OUTSIDE RECORDS SUMMARY | 2024-10-29 13:02 | XMS_ITS | Encounter Summary ---
Author Organization [facility] Address [facility] [id number] [address] [place] [address] Care Team Providers Care Chief Hospital Administrator Name Role Phone Carson Sullivan DO Primary Care Provider [phone] Encounter Details Date Type Department Care Team (Late st Contact Info) Description 07/19/2022 Orders Only [facility] - Family Medicine [address] [place] [address] Carson Sullivan DO [address] [place] [address] Social History Tobacco Use Types Packs/Day Years Used Date Smoking Tobacco: Every Day Cigarettes 1 52 Smokeless Tobacco: Never Social Connection and Isolat ion Panel [NHANES] Answer Date Recorded In a typical week, how many times do you talk on the phone with family, friends, or neighbors? More than three times a week 07/18/2022 How often do you get togethe r with friends or relatives? More than three times a week 07/18/2022 How often do you attend chur ch or latter-day services? More than 4 times per year 07/18/2022 Do you belong to any clubs o r organizations such as voodoo groups, unions, fraternal or athletic groups, or school groups? No 07/18/2022 How often do you attend meet ings of the clubs or organizations you belong to? Never 07/18/2022 Are you , , di vorced, , never , or living with a partner? 07/18/2022 AUDIT-C Answer Date Recorded Q1: How often [...] PHQ-2 Answer Date Recorded Total Score 0 07/18/2022 [facility] [place] of Occupat ional Health - Occupational Stress [...] exercise (like a brisk walk)? 2 days 07/18/2022 On average, how many minutes do you engage in exercise at this level? 20 min 07/18/2022 PRAPARE - Transportation Answer Date Re corded [...] Recorded Do you need help finding a [facility] specialty hospital[facility] career center and/or a training program? No 07/18/2022 Purpose - Life Answer Date Recorded I have a purpose and direction in my life. Stron gly Agree 07/18/2022 Comments Unknown Sex and Gender Information Value Date Recorded Sex Assigned at Not on file Legal Sex Female 11:29 AM EDT Gender Identity Not on file Sexual Orientation Not on file documented as of this encounter Plan of Treatment Upcoming Encounters Date Type Department Care Team (Late st Contact Info) Description 12/06/2024 11:15 AM EDT Office Visit [facility] [address] [place] [address] Carson Sullivan DO [address], [facility] [place] [address] 10/14/2025 1:00 PM EDT Office Visit [facility] - [facility] [address] [place] [phone] documented as of this encounter Procedures Procedure Name Priority Date/Time Associated Diagnosis Comments HEPATITIS C(HCV) ANTIBODY W/ REFLEX TO PCR Routine 08/23/2015 documented in this encounter Results * Hepatitis C(HCV) Ab w/ Reflex to PCR (08/23/2015) us Carson Sullivan DO LAB BLOOD ORDERABLES Final R esult MANUALLY TRANSCRIBED LAB RESULTS documented in this encounter Visit Diagnoses Not on filedocumented in this encounter Additional Health Concerns Assessment Noted Time PHQ-9 Depression Total Score: 0 07/19/19 23 9:01 AM EDT documented as of this encounter Care Teams Chief Hospital Administrator Relationship Specialty Start Date End Date Carson Sullivan DO [address] [place] [address] PCP - General Family Medicine 02/14/17 documented as of this encounter
--- OUTSIDE RECORDS SUMMARY | 2024-10-29 13:02 | XMS_ITS | Encounter Summary ---
Author Organization [employer] [facility] tem Address [facility] [place]-[id number] [address] [place] [address] Care Team Providers Care Tooling Engineering Tech Name Role Phone Carson Sullivan DO Primary Care Provider [phone] Reason for Visit * Reason Comments Med Refill Encounter Details Date Type Department Care Team (Late st Contact Info) Description 08/02/2022 Refill [facility] - Family Medicine [address] [place] [phone] Carosn Sullivan DO [address], [place] [address] Essential hypertension Social History Tobacco Use Types Packs/Day Years [...] 08/02/2022 How often do you attend chur or christianity services? More than 4 times per year 08/02/2022 Do you belong to any clubs o r organizations such as alevism groups, unions, fraternal or athletic groups, or [...] PHQ-2 Answer Date Recorded Total Score 0 08/04/2022 [facility] of Occupat ional Health - Occupational Stress [...] Recorded Do you need help finding a [facility] and/or a training program? [...] - Family Medicine [address] [place] [address] Carson Sullivan DO [address] [facility] [place] [address] 10/14/2025 1:00 PM EDT Office Visit [facility] - Family Medicine [address] [place] [address] documented as of this encounter Visit Diagnoses Diagnosis Essential hypertension Unspecified essential hypertension documented in this encounter Additional Health Concerns Assessment Noted Time PHQ-9 Depression Total Score: 0 07/19/19 23 9:01 AM EDT documented as of this encounter Care Teams Tooling Engineering Tech Relationship Specialty Start Date End Date Carson Sullivan DO [address] [place] [address] PCP - General Family Medicine 02/14/17 documented as of this encounter
--- OUTSIDE RECORDS SUMMARY | 2024-10-29 13:02 | XMS_ITS | Encounter Summary ---
Author Organization [facility] Address [facility] [place]-[id number] [address] [place] [address] Care Team Providers Care Station Air Traffic Control Specialist Name Role Phone Carson Sullivan DO Primary Care Provider [phone] Encounter Details Date Type Department Care Team (Late st Contact Info) Description 09/02/2022 Orders Only [facility] - Family Medicine [address] [place] [phone] Parris Mike CMA Tobacco dependence syndrome; Chronic obstructive pulmonary disease, unspecified COPD type (CMS-HCC); Left lower lobe pulmonary nodule Social History Tobacco Use Types Packs/Day Years [...] often do you attend chur ch or bahai services? More than 4 times per year 08/02/2022 Do you belong to any clubs o r organizations such as quaker groups, unions, fraternal or athletic groups, or [...] Answer Date Recorded Total Score 0 08/04/2022 [facility] [place] of Occupat ional Health - Occupational Stress [...] Recorded Do you need help finding a l ocal career center and/or a training program? No [...] Medicine - Family Medicine [address] [place] [address] Carson Sullivan DO [address], [place] [address] 10/14/2025 1:00 PM EDT Office Visit [facility] [address] [place] [address] documented as of this encounter Procedures Procedure Name Priority Date/Time Associated Diagnosis Comments AMB REFERRAL TO PULMONOLOGY Routine 09/02/2022 10:00 AM EDT Tobacco dependence syndrome Chronic obstructive pulmonary disease, unspecified COPD type (CMS-HCC) Left lower lobe pulmonary nodule documented in this encounter Results * Ambulatory referral to Pulmonology (09/02/2022 10:00 AM EDT) Lian Zambrano PLANTING MATERIAL REMOVER-ARCH SUPPORT MAKER OUTPATIENT REFERRAL WAY[facility] PATTER[place] Final Result MANUALLY TRANSCRIBED RESULTS documented in this encounter Visit Diagnoses Diagnosis Tobacco dependence syndrome Tobacco use disorder Chronic obstructive pulmonary disease, unspecified COPD type (CMS-HCC) Left lower lobe pulmonary nodule documented in this encounter Additional Health Concerns Assessment Noted Time PHQ-9 Depression Total Score: 0 08/05/19 23 12:43 PM EDT documented as of this encounter Care Teams Station Air Traffic Control Specialist Relationship Specialty Start Date End Date Carson Sullivan DO [address], [place] [address] PCP - General Family Medicine 02/14/17 documented as of this encounter
--- OUTSIDE RECORDS SUMMARY | 2024-10-29 13:03 | XMS_ITS | Encounter Summary ---
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 Monthly or less 11/16/2021 Q2: How many drinks containi ng alcohol do you have on a typical day when you are drinking? 1 or 2 11/16/2021 Q3: How often do you have si x or more drinks on one occasion? Never 11/16/2021 PHQ-2 Answer Date Recorded Total Score 1 05/02/2022 Childcare Answer Date Recorded Childcare Unknown 08/15/2018 Employment Answer Date Recorded Employment Unknown 08/15/2018 Purpose - Life Answer Date Recorded Purpose and direction in life Unknown Comments Unknown Sex and Gender Information Value Date Recorded Sex Assigned at Not on file Legal Sex Female 11:29 AM EDT Gender Identity Not on file Sexual Orientation Not on file COVID-19 Exposure Response Date Recorded In the last month, have you been in contact with someone who was confirmed or suspected to have Coronavirus / COVID-19? No / Unsure 05/02/2022 9:10 AM EST documented as of this encounter Plan of Treatment Upcoming Encounters Date Type Department Care Team (Late st Contact Info) Description 12/06/2024 11:15 AM EDT Office Visit [facility] Medicine [address] [place] [address] Carson Sullivan DO [address], [facility] [place] [address] 10/14/2025 1:00 PM EDT Office Visit [facility] - Family Medicine [address] [place] [address] documented as of this encounter Procedures Procedure Name Priority Date/Time Associated Diagnosis Comments AMB REFERRAL TO NEPHROLOGY Routine 04/29/2022 11:16 AM EST Stage 4 chronic kidney disease due to hypertension (CMS-HCC) documented in this encounter Results * Ambulatory referral to Nephrology (04/29/2022 11:16 AM EST) us Carson Sullivan DO OUTPATIENT REFERRAL ORDERABL ES Final Result MANUALLY TRANSCRIBED RESULTS documented in this encounter Visit Diagnoses Diagnosis Stage 4 chronic kidney disease due to hypertension (CMS-HCC) documented in this encounter Care Teams Tobacco Curer Relationship Specialty Start Date End Date Carson Sullivan DO [address] [place] [address] PCP - General Family Medicine 02/14/17 documented as of this encounter
--- OUTSIDE RECORDS SUMMARY | 2024-10-29 13:03 | XMS_ITS | Encounter Summary ---
Author Organization [employer] [facility] Address [facility]-[id number] [address] [place] [address] Care Team Providers Care Hairspring Truing Inspector Name Role Phone Carson Sullivan DO Primary Care Provider Reason for Visit * Reason Comments Med Refill Encounter Details Date Type Department Care Team (Late st Contact Info) Description 02/18/2022 Refill [facility] - Family Medicine [address] [place] [phone] Carson Sullivan DO [address], [place] [address] Social History Tobacco Use Types Packs/Day Years [...] more drinks on one occasion? Never 11/16/2021 Childcare Answer Date Recorded Childcare Unknown 08/15/2018 [...] have Coronavirus / COVID-19? No / Unsure 02/15/2022 2:37 PM EST documented as of this encounter Plan of Treatment Upcoming Encounters Date Type Department Care Team (Late st Contact Info) Description 12/06/2024 11:15 AM EDT Office Visit [facility] - Family Medicine [address] [place] [address] Carson Sullivan DO [address] [facility] [place] [address] 10/14/2025 1:00 PM EDT Office Visit [facility] - Family Medicine [address] [place] [address] documented as of this encounter Visit Diagnoses Not on filedocumented in this encounter Care Teams Hairspring Truing Inspector Relationship Specialty Start Date End Date Carson Sullivan DO [address] [facility] [place] [address] PCP - General Family Medicine 02/14/17 documented as of this encounter
--- OUTSIDE RECORDS SUMMARY | 2024-10-29 13:03 | XMS_ITS | Encounter Summary ---
Author Organization [facility] Address [facility] [id number] [address] [place] [address] Care Team Providers Care Chart Snatcher Name Role Phone Carson Sullivan DO Primary Care Provider Encounter Details Date Type Department Care Team (Late st Contact Info) Description 05/25/2022 Telephone [facility] - Family Medicine [address] [place] [address] Alisa Fernandez CMA Social History Tobacco Use Types Packs/Day Years [...] have Coronavirus / COVID-19? No / Unsure 2022 2:18 PM EST documented as of this encounter Miscellaneous Notes * Telephone Encounter - Alisa Fernandez CMA - 05/25/2022 1:39 PM EDT Pt called and stated that the new medication she is on for pain is not working. Any suggestions on what else she can do? * Telephone Encounter - Carson Sullivan DO - 05/25/2022 1:39 PM EDT Pain management * Telephone Encounter - Alisa Fernandez CMA - 05/25/2022 1:39 PM EDT Pt is getting back with me about pain Management Doctor in [employer] documented in this encounter Plan of Treatment Upcoming Encounters Date Type Department Care Team (Late st Contact Info) Description 12/06/2024 11:15 AM EDT Office Visit [facility] - Family Medicine [address] [place] [address] Carson Sullivan DO [address] [place] [address] 10/14/2025 1:00 PM EDT Office Visit [facility] - Family Medicine [address] [place] [address] documented as of this encounter Visit Diagnoses Not on filedocumented in this encounter Additional Health Concerns Assessment Noted Time PHQ-9 Depression Total Score: 1 05/02/19 9:26 AM EST documented as of this encounter Care Teams Chart Snatcher Relationship Specialty Start Date End Date Carson Sullivan DO [address] [facility], [place] [address] PCP - General Family Medicine 02/14/17 documented as of this encounter
--- OUTSIDE RECORDS SUMMARY | 2024-10-29 13:03 | XMS_ITS | Encounter Summary ---
Author Organization [facility] Address [facility] [place]-[id number] [address] [place] [address] Care Team Providers Care Night Warehouse Selector Name Role Phone Carson Sullivan DO Primary Care Provider Encounter Details Date Type Department Care Team (Late st Contact Info) Description 06/15/2022 Telephone [facility] - Family Medicine [address] [place] [phone] Carson Sullivan DO [address], [facility] [place] [address] Social History Tobacco Use Types Packs/Day Years [...] Recorded Purpose and direction in life Unknown 02 /01/2021 Comments Unknown Sex and Gender Information Value Date Recorded Sex Assigned at Not on file Legal Sex Female 11:29 AM EDT Gender Identity Not on file Sexual Orientation Not on file documented as of this encounter Miscellaneous Notes * Telephone Encounter - Do Ryan - 06/15/2022 8:59 AM EDT Patient called and said that she found that [facility] in [place] is accepting and would like a referral sent there if we could. Fax number is [phone] * Telephone Encounter - Carson Sullivan DO - 06/15/2022 8:59 AM EDT I artery sent over to [facility]. They should be getting hold of her documented in this encounter Plan of Treatment Upcoming Encounters Date Type Department Care Team (Late st Contact Info) Description 12/06/2024 11:15 AM EDT Office Visit [facility] - Family Medicine [address] [place] [address] Carson Sullivan DO [address] [facility] [place] [address] 10/14/2025 1:00 PM EDT Office Visit [facility] - Family Medicine [address] [place] [address] documented as of this encounter Visit Diagnoses Not on filedocumented in this encounter Additional Health Concerns Assessment Noted Time PHQ-9 Depression Total Score: 1 05/02/19 23 9:26 AM EST documented as of this encounter Care Teams Night Warehouse Selector Relationship Specialty Start Date End Date Carson Sullivan DO [address], [facility] [place] [address] PCP - General Family Medicine 12/12/17 documented as of this encounter
--- OUTSIDE RECORDS SUMMARY | 2024-10-29 13:03 | XMS_ITS | Encounter Summary ---
Author Organization [facility] Address [facility] [id number] [address] [place] [address] Care Team Providers Care Fender Mechanic Name Role Phone Carson Sullivan DO Primary Care Provider Encounter Details Date Type Department Care Team (Late st Contact Info) Description 05/03/2022 Orders Only [facility] - Family Medicine [address] [place] [phone] Belén Pearson CMA Stage 4 chronic kidney disease due to hypertension ([facility]-HCC) Social History Tobacco Use Types Packs/Day [...] Medicine - Family Medicine [address] [place] [address] Carson Sullivan DO [address], [place] [address] 10/14/2025 1:00 PM EDT Office Visit [facility] - Family Medicine [address] [place] [address] documented as of this encounter Procedures Procedure Name Priority Date/Time Associated Diagnosis Comments US RETROPERITONEAL LIMITED Routine 05/03/2022 4:52 PM EST Stage 4 chronic kidney disease due to hypertension (CMS-HCC) documented in this encounter Results * Ultrasound retroperitoneal limited (05/03/2022 4:52 PM EST) Anatomical Region Laterality Modality Body Ultrasound us Carson Sullivan DO IMG US ORDERABLES Final Resu lt documented in this encounter Visit Diagnoses Diagnosis Stage 4 chronic kidney disease due to hypertension (CMS-HCC) documented in this encounter Additional Health Concerns Assessment Noted Time PHQ-9 Depression Total Score: 1 05/02/19 23 9:26 AM EST documented as of this encounter Care Teams Fender Mechanic Relationship Specialty Start Date End Date Carson Sullivan DO [address], [place] [address] PCP - General Family Medicine 02/14/17 documented as of this encounter
--- OUTSIDE RECORDS SUMMARY | 2024-10-29 13:03 | XMS_ITS | Encounter Summary ---
Author Organization 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) Social History Tobacco Use Types Packs/Day Years [...] - Family Medicine [address] [place] [address] Carson Sullivan DO [address] [facility] [place] [address] 10/14/2025 1:00 PM EDT Office Visit [facility] - Family Medicine [address] [place] [address] documented as of this encounter Visit Diagnoses Diagnosis Lumbosacral spondylosis without myelopathy- Primary documented in this encounter Additional Health Concerns Assessment Noted Time PHQ-9 Depression Total Score: 1 05/02/19 23 9:26 AM EST documented as of this encounter Care Teams Hunter Trapper Relationship Specialty Start Date End Date Carson Sullivan DO [address] [facility] [address] PCP - General Family Medicine 02/14/17 documented as of this encounter
--- OUTSIDE RECORDS SUMMARY | 2024-10-29 13:03 | XMS_ITS | Encounter Summary ---
Author Organization [email or web address] Address [facility] [place]-[id number] [address] [place] [address] Care Team Providers Care Glass Cutting Machine Feeder Name Role Phone Carson Sullivan DO Primary Care Provider + [phone] Encounter Details Date Type Department Care Team (Late st Contact Info) Description 06/29/2023 Telephone [facility] Internal [facility] - Family Medicine [address] [place] [phone] Trixie Luna CMA Social History Tobacco Use Types Packs/Day Years Used Date Smoking Tobacco: Every Day Cigarettes 1 52 Smokeless Tobacco: Never Comments:Trying to cut back- smoking about 1/2 PPD now but it depends; trying to quit so she can have shoulder replacement surgery Alcohol Use Standard Drinks/Week Comments Never 0 (1 standard drink = 0.6 oz pur e alcohol) [facility] Utilities Answer Date Recorded In the past 12 months has [employer], gas, oil, or water [employer] threatened to shut off services in your home? No 06/28/2023 Social Connection and Isolat ion Panel [NHANES] Answer Date Recorded In a typical week, how many times do you talk on the phone with family, friends, or neighbors? More than three times a week 08/02/2022 How often do you get togethe r with friends or relatives? Once a week 08/02/2022 How often do you attend [facility] or quaker services? More than 4 times per year 08/02/2022 Do you belong to any clubs o r organizations such as yazidi groups, unions, fraternal or athletic groups, or [...] PHQ-2 Answer Date Recorded Total Score 0 06/28/2023 [facility] of Occupat ional Health - Occupational Stress [...] Recorded Do you need help finding a [facility] career center and/or a training program? No 07/18/2022 Hunger Screening Answer Date Recorded Within the past 12 months we worried whether our food would run out before we got money to buy more. Never True 06/28/2023 Within the past 12 months th e food we bought just didn't last and we didn't have money to get more. Never True 06/28/2023 Purpose - Life Answer Date Recorded I have a purpose and direction in my life. Stron gly Agree 07/18/2022 Comments Unknown Sex and Gender Information Value Date Recorded Sex Assigned at Not on file Legal Sex Female 11:29 AM EDT Gender Identity Not on file Sexual Orientation Not on file documented as of this encounter Miscellaneous Notes * Telephone Encounter - Trixie Luna CMA - 06/29/2023 9:25 AM EDT Pt stated you are going to prescribe her a new RX for percacet , stated you told her to call in today . Reminder documented in this encounter Plan of Treatment Upcoming Encounters Date Type Department Care Team (Late st Contact Info) Description 12/06/2024 11:15 AM EDT Office Visit [facility] - Family Medicine [address] [place] [address] Carson Sullivan DO [address] [facility] [place] [address] 10/14/2025 1:00 PM EDT Office Visit [facility] - Family Medicine [address] [place] [address] documented as of this encounter Visit Diagnoses Not on filedocumented in this encounter Additional Health Concerns Assessment Noted Time PHQ-9 Depression Total Score: 0 06/28/19 11:32 AM EDT documented as of this encounter Care Teams Glass Cutting Machine Feeder Relationship Specialty Start Date End Date Carson Sullivan DO [address], [place] [address] PCP - General Family Medicine 02/14/17 documented as of this encounter
--- OUTSIDE RECORDS SUMMARY | 2024-10-29 13:03 | XMS_ITS | Encounter Summary ---
Author Organization [employer] Address [facility] [id number] [address] [place] [address] Care Team Providers Care Aircraft Metalsmith Name Role Phone Carson Sullivan DO Primary Care Provider Reason for Visit * Reason Comments Med Refill Encounter Details Date Type Department Care Team (Late st Contact Info) Description 01/15/2022 Refill [facility] Internal Medicine - Family Medicine [address] [place] [phone] Carson Sullivan DO [address], [place] [address] Social History Tobacco Use Types Packs/Day Years [...] - Family Medicine [address] [place] [address] Carson Sullivan DO [address] [facility] [place] [address] 10/14/2025 1:00 PM EDT Office Visit [facility] - Family Medicine [address] [place] [address] documented as of this encounter Visit Diagnoses Not on filedocumented in this encounter Care Teams Aircraft Metalsmith Relationship Specialty Start Date End Date Carson Sullivan DO [address] [facility] [place] [address] PCP - General Family Medicine 02/14/17 documented as of this encounter
--- OUTSIDE RECORDS SUMMARY | 2024-10-29 13:03 | XMS_ITS | Encounter Summary ---
Author Organization [facility] Address [facility] [place][id number] [address] [place] [address] Care Team Providers Care Security Shift Supervisor Name Role Phone Carson Sullivan DO Primary Care Provider Encounter Details Date Type Department Care Team (Late st Contact Info) Description 03/01/2022 Telephone [facility] Internal Medicine - Family Medicine [address] [place] [phone] Carson Sullivan DO [address], [place] [address] Social History Tobacco Use Types Packs/Day Years [...] * Telephone Encounter - Do Ryan - 03/01/2022 1:01 PM EST Patient came in today and was wondering if you would be able to send in a low dose assisted rx forprednisone to help with her shoulder.it hurts when she gets dressed, shower or every day activities. If you can she would like it sent to [facility] * Telephone Encounter - Carson Sullivan DO - 03/01/2022 1:01 PM EST That is not what we usually use long-term low-dose steroids for. There are too many risks to take long-term for rotator cuff or tendinitis problem. She should consider cortisone shot or seeing orthopedic doctor * Telephone Encounter - Do Ryan - 03/01/2022 1:01 PM EST Notified patient and she understands, shes going to think on both options and get back to us documented in this encounter Plan of Treatment Upcoming Encounters Date Type Department Care Team (Late st Contact Info) Description 12/06/2024 11:15 AM EDT Office Visit [facility] - Family Medicine [address] [place] [address] Carson Sullivan DO [address] [place] [place] [address] 10/14/2025 1:00 PM EDT Office Visit [facility] - Family Medicine [address] [place] [address] documented as of this encounter Visit Diagnoses Not on filedocumented in this encounter Care Teams Security Shift Supervisor Relationship Specialty Start Date End Date Carson Sullivan DO [address], [facility] [place] [address] PCP - General Family Medicine 02/14/17 documented as of this encounter
--- OUTSIDE RECORDS SUMMARY | 2024-10-29 13:03 | XMS_ITS | Encounter Summary ---
Author Organization [employer] Address [facility] [id number] [address] [place] [address] Care Team Providers Care Flash Drier Operator Name Role Phone Carson Sullivan DO Primary Care Provider Reason for Visit * Reason Comments Med Refill Encounter Details Date Type Department Care Team (Late st Contact Info) Description 03/14/2022 Refill [facility] Internal Medicine - Family Medicine [address] [place] [phone] Carson Sullivan DO [address], [place] [address] Social History Tobacco Use Types Packs/Day Years [...] Internal Medicine - Family Medicine [address] [place] [address] Carson Sullivan DO [address] [facility] [place] [address] 10/14/2025 1:00 PM EDT Office Visit [facility] - Family Medicine [address] [place] [address] documented as of this encounter Visit Diagnoses Not on filedocumented in this encounter Care Teams Flash Drier Operator Relationship Specialty Start Date End Date Carson Sullivan DO [address] [facility] [place] [address] PCP - General Family Medicine 02/14/17 documented as of this encounter
--- OUTSIDE RECORDS SUMMARY | 2024-10-29 13:03 | XMS_ITS | Encounter Summary ---
Author Organization [facility] Address [facility] [id number] [address] [place] [address] Care Team Providers Care Intelligence Specialist Name Role Phone Laurie Carson Mustapha LEIVA Primary Care Provider [phone] Encounter Details Date Type Department Care Team (Late st Contact Info) Description 04/01/2022 Orders Only [facility] Internal Medicine - Family Medicine [address] [place] [phone] Belén Pearson CMA Abnormal renal function Social History Tobacco Use Types Packs/Day Years [...] - Family Medicine [address] [place] [phone] Carson Sullivan DO [address], [place] [address] 10/14/2025 1:00 PM EDT Office Visit [facility] - Family Medicine [address] [place] [phone] documented as of this encounter Procedures Procedure Name Priority Date/Time Associated Diagnosis Comments BASIC METABOLIC PANEL Routine 03/25/2022 Abnormal renal function documented in this encounter Results * (ABNORMAL) Basic Metabolic Panel (03/25/2022) External Anion Gap 17.6 MANUALLY TRANSCRIBED RESULTS External Blood Urea Nitrogen Bun 43(A) 7 - 18 MANUALLY TRANSCRIBED RESULTS External Calcium Ca 8.9 8.5 - 10.1 MANUALLY TRANSCRIBED RESULTS External Chloride 97 97 - 107 MANUALLY TRANSCRIBED RESULTS External Co2 / Carbon Dioxide 22.2 21 - 32 MANUALLY TRANSCRIBED RESULTS External Creatinine 2.42(A) 0.55 - 1.02 MANUALLY TRANSCRIBED RESULTS External Gfr Amer 20(A) >=60 MANUALLY TRANSCRIBED RESULTS External Gfr Non Amer 24(A) >=60 MANUALLY TRANSCRIBED RESULTS External Glucose Fasting Or Random (Fbs) 84 74 - 106 MANUALLY TRANSCRIBED RESULTS External Potassium K 4.8 3.5 - 5.1 MANUALLY TRANSCRIBED RESULTS External Sodium Na 132(A) 136 - 145 MANUALLY TRANSCRIBED RESULTS 03/25/2022 us Carson Sullivan DO LAB BLOOD ORDERABLES Final R esult MANUALLY TRANSCRIBED RESULTS documented in this encounter Visit Diagnoses Diagnosis Abnormal renal function Nonspecific abnormal results of kidney function study documented in this encounter Care Teams Intelligence Specialist Relationship Specialty Start Date End Date Carson Sullivan DO [address], [place] [address] PCP - General Family Medicine 02/14/17 documented as of this encounter
--- OUTSIDE RECORDS SUMMARY | 2024-10-29 13:03 | XMS_ITS | Encounter Summary ---
Author Organization [facility] [employer] Address [facility] [id number] [address] [place] [address] Care Team Providers Care Director Of Materials Name Role Phone Carson Sullivan DO Primary Care Provider [phone] Encounter Details Date Type Department Care Team (Late st Contact Info) Description 04/13/2022 Telephone [facility] Internal Medicine - Family Medicine [address] [place] [phone] Parris Mike CMA Social History Tobacco Use Types Packs/Day [...] encounter Miscellaneous Notes * Telephone Encounter - Parris Miek CMA - 04/13/2022 11:17 AM EST Patient stopped in because she said she is having a reaction to the HCTZ. Her joints and muscles are killing her, fingers are numb, she is cold and it itching all over. She said that she read the side effects on the HCTZ and those are all on there. Wants to know if there is something else she can take? * Telephone Encounter - Carson Sullivan DO - 04/13/2022 11:17 AM EST Those are unusual side effects but also ended something else * Telephone Encounter - Parris Mike CMA - 04/13/2022 11:17 AM EST Spoke with the patient and she understands documented in this encounter Plan of Treatment Upcoming Encounters Date Type Department Care Team (Late st Contact Info) Description 12/06/2024 11:15 AM EDT Office Visit [facility] - Family Medicine [address] [place] [address] Carson Sullivan DO [address], [facility] [place] [address] 10/14/2025 1:00 PM EDT Office Visit [facility] Medicine - Family Medicine [address] [place] [address] documented as of this encounter Visit Diagnoses Not on filedocumented in this encounter Care Teams Director Of Materials Relationship Specialty Start Date End Date Carson Sullivan DO [address] [place] [address] PCP - General Family Medicine 02/14/17 documented as of this encounter
--- OUTSIDE RECORDS SUMMARY | 2024-10-29 13:03 | XMS_ITS | Encounter Summary ---
Author Organization [facility] Address [facility] [id number] [address] [place] [address] Care Team Providers Care Fire Sprinkler Designer Name Role Phone Carson Sullivan DO Primary Care Provider + [phone] Encounter Details Date Type Department Care Team (Late st Contact Info) Description 11/15/2023 Orders Only [facility] Internal Medicine - Family Medicine [address] [place] [address] Ref Prov, [place] [address] Social History Tobacco Use Types Packs/Day Years Used Date Smoking Tobacco: Every Day Cigarettes 1 52 Smokeless Tobacco: Never Comments:Trying to cut back- smoking about 1/2 PPD now but it depends; trying to quit so she can have shoulder replacement surgery Alcohol Use Standard Drinks/Week Comments Never 0 (1 standard drink = 0.6 oz pur e alcohol) [facility] Utilities Answer Date Recorded In the past 12 months has [employer], gas, oil, or water company threatened to shut off services in your home? No 06/28/2023 Social Connection and Isolat ion Panel [NHANES] Answer Date Recorded In a typical week, how many times do you talk on the phone with family, friends, or neighbors? More than three times a week 10/10/2023 How often do you get togethe r with friends or relatives? Once a week 10/10/2023 How often do you attend [facility] or presybeterian services? More than 4 times per year 10/10/2023 Do you belong to any clubs o r organizations such as jewish groups, unions, fraternal or athletic groups, or school groups? No 10/10/2023 How often do you attend meet ings of the clubs or organizations you belong to? Never 10/10/2023 Are you , , di vorced, , never , or living with a partner? 10/10/2023 AUDIT-C Answer Date Recorded Q1: How often [...] PHQ-2 Answer Date Recorded Total Score 0 10/10/2023 [facility] of Occupat ional Health - Occupational [...] exercise (like a brisk walk)? 2 days 10/10/2023 On average, how many minutes do you engage in exercise at this level? 20 min 10/10/2023 PRAPARE - Transportation Answer Date Re corded [...] Recorded Do you need help finding a [facility] career center and/or a training program? No 07/18/2022 Hunger Screening Answer Date Recorded Within the past 12 months we worried whether our food would run out before we got money to buy more. Never True 10/10/2023 Within the past 12 months th e food we bought just didn't last and we didn't have money to get more. Never True 10/10/2023 Purpose - Life Answer Date Recorded I [...] Description 12/06/2024 11:15 AM EDT Office Visit [facility] Internal Medicine - Family Medicine [address] [place] [address] Carson Sullivan, DO [address] [facility] [place] [address] 10/14/2025 1:00 PM EDT [facility] [address] [place] [place] [address] documented as of this encounter Procedures Procedure Name Priority Date/Time Associated Diagnosis Comments CT CTA CHEST Routine 11/13/2023 2:06 PM EDT documented in this encounter Results * CT angiogram chest (11/13/2023 2:06 PM EDT) Anatomical Region Laterality Modality Lung, Body, Chest, Vascular, Body Covera N/A Computed Tomography us Not In System Ref Prov IMG CT ORDERABLES Final R esult documented in this encounter Visit Diagnoses Not on filedocumented in this encounter Additional Health Concerns Assessment Noted Time PHQ-9 Depression Total Score: 0 10/10/19 24 10:49 AM EDT documented as of this encounter Care Teams Fire Sprinkler Designer Relationship Specialty Start Date End Date Carson Sullivan DO [address], [facility] [place] [address] PCP - General Family Medicine 02/14/17 documented as of this encounter
--- OUTSIDE RECORDS SUMMARY | 2024-10-29 13:03 | XMS_ITS | Clinical Summary ---
Author Organization [facility] Healthcare Address [address] [facility] [place] [address] Care Team Providers Care Rangeland Management Specialist Name Role Phone Unavailable Primary Care Provider Unavailabl e Allergies Active Allergy Reactions Criticality Noted Date Comments Hydrochlorothiazide Itching 02/09/2023 Other Reaction(s): Itching & Rash Nickel Rash Low 02/09/2023 Other Reaction(s): hives Statins 03/10/2023 Other Reaction(s): Myalgia Sulfa Antibiotics Photosensitivity Medium 11/15/2021 Medications amLODIPine (Norvasc) 10 MG tablet Take 1 tablet by mouth in the morning. 3 Active aspirin 81 MG EC tablet 1 tablet Orally Once a day for 30 day(s) Active B Complex-Biotin- FA (Super B-Complex) tablet as directed Orally Active Bioflavonoid Products (Vitamin C) chewable tablet as directed Orally Active calcium-magnesi um-zinc 333-133-5 MG per tablet every 8 (eight) hours Active fluticasone (Flonase) 50 MCG/ACT nasal spray Administer 1 spray into affected nostril(s) in the morning. 3 Active levothyroxine (Synthroid, Levoxyl) 112 MCG tablet Take 1 tablet by mouth in the morning. 3 Active lisinopril 40 MG tablet Take 40 mg by mouth in the morning. 3 Active loratadine (Claritin) 10 MG tablet 1 (one) time each day at the same time Active metoprolol succinate XL (Toprol-XL) 25 MG 24 hr tablet Take 1 tablet by mouth in the morning. 3 Active Multiple Vitamins-Minera ls (Womens 50+ Multi Vitamin) tablet Take 1 tablet by mouth in the morning. 3 Active niacin ER 1000 MG ER tablet 1 tablet with food Orally BID Active omega-3 (fish oil) 1000 MG capsule 1 capsule 1 (one) time each day at the same time Active omeprazole (PriLOSEC) [address] capsule Take 1 capsule by mouth in the morning and 1 capsule before bedtime. 3 Active sertraline (Zoloft) 50 MG tablet Take 1 tablet by mouth in the morning. 3 Active alpha tocopherol (Vitamin E) 400 units capsule 1 capsule 1 (one) time each day at the same time Active DULoxetine (Cymbalta) [address] capsule Take 30 mg by mouth in the morning. 4 Active LORazepam (Ativan) 1 MG tablet Take 1 mg by mouth Daily as needed 4 Active Active Problems No known active problems Family History Medical History Relation Name Comments Melanoma Neg Hx Social History Tobacco Use Types Packs/Day Years Used Date Smoking Tobacco: Unknown Tobacco Cessation:Counseling Given: Not Answered Comments Unknown Sex and Gender Information Value Date Recorded Sex Assigned at Not on file Legal Sex Female 8:33 PM EDT Gender Identity Not on file Sexual Orientation Not on file Last Filed Vital Signs Vital Sign Reading Time Taken Comments Blood Pressure 128/66 05/10/2018 12:00 PM EST Pulse - - Temperature - - Respiratory Rate - - Oxygen Saturation - - Inhaled Oxygen Concentration - - Weight 73.9 kg (163 lb) 05/10/2018 12:00 PM EST Height 160 cm (5' 3 ) 05/10/2018 12:00 PM EST Body Mass Index 28.87 05/10/2018 12:00 PM EST Plan of Treatment Not on file Insurance [facility] MEDICARE ADVANTAGE
--- OUTSIDE RECORDS SUMMARY | 2024-10-29 13:03 | XMS_ITS | Encounter Summary ---
Author Organization [facility] Address [facility] [place]-[id number] [address] [place] [address] Care Team Providers Care Environmental Solutions Engineer Name Role Phone Carson Sullivan DO Primary Care Provider [phone] Encounter Details Date Type Department Care Team (Late st Contact Info) Description 02/22/2024 Orders Only [facility] Internal Medicine - Family Medicine [address] [place] [phone] Farnaz Bennett CMA Asymptomatic menopause Social History Tobacco Use Types Packs/Day Years Used Date Smoking Tobacco: Every Day Cigarettes 1 52 Smokeless Tobacco: Never Comments:Trying to cut back- smoking about 1/2 PPD now but it depends; trying to quit so she can have shoulder replacement surgery Alcohol Use Standard Drinks/Week Comments Never 0 (1 standard drink = 0.6 oz pur e alcohol) [facility] Utilities Answer Date Recorded In the past 12 months has [employer], gas, oil, or water [employer] threatened to shut off services in your [...] week 10/10/2023 How often do you attend [facility] or muslim services? More than 4 times per year 10/10/2023 Do you belong to any clubs o r organizations such as baptist groups, unions, fraternal or athletic groups, or [...] PHQ-2 Answer Date Recorded Total Score 0 12/28/2023 [facility] of Occupat ional Health - Occupational Stress [...] Recorded Do you need help finding a [facility] career center and/or a training program? No 07/18/2022 Hunger Screening Answer Date Recorded Within the past 12 months we worried whether our food would run out before we got money to buy more. Never True 12/28/2023 Within the past 12 months th e food we bought just didn't last and we didn't have money to get more. Never True 12/28/2023 Purpose - Life Answer Date Recorded I [...] Internal Medicine - Family Medicine [address] [facility] [place] [address] Carson Sullivan DO [address] [facility] [place] [address] 10/14/2025 1:00 PM EDT [facility] [address] [facility] [place] [address] documented as of this encounter Procedures Procedure Name Priority Date/Time Associated Diagnosis Comments DEXA SCAN CENTRAL SKELETAL Routine 02/22/2024 10:07 AM EST Asymptomatic menopause documented in this encounter Results * Dexa scan central skeletal (02/22/2024 10:07 AM EST) Anatomical Region Laterality Modality N/A Radiographic Radha ging us Carson HICKMANG DXA ORDERABLES Final Res ult documented in this encounter Visit Diagnoses Diagnosis Asymptomatic menopause documented in this encounter Additional Health Concerns Assessment Noted Time PHQ-9 Depression Total Score: 0 10/24/20 24 1:00 PM EDT documented as of this encounter Care Teams Environmental Solutions Engineer Relationship Specialty Start Date End Date Carson Sullivan DO [address], [facility] [place] [address] PCP - General Family Medicine 02/14/17 documented as of this encounter
--- OUTSIDE RECORDS SUMMARY | 2024-10-29 13:03 | XMS_ITS | Encounter Summary ---
Author Organization [facility] Address [id number] [address] [place] [address] Care Team Providers Care Railroad Accountant Name Role Phone Carson Sullivan DO Primary Care Provider [phone] Encounter Details Date Type Department Care Team (Late st Contact Info) Description 06/02/2022 Orders Only [facility] - Family Medicine [address] [place] [address] Ref Prov, [place] [address] Social History Tobacco Use Types Packs/Day Years [...] Medicine - Family Medicine [address] [place] [address] Carson Sullivan DO [address], [facility] [place] [address] 10/14/2025 1:00 PM EDT Office Visit [facility] - Family Medicine [address] [place] [address] documented as of this encounter Procedures Procedure Name Priority Date/Time Associated Diagnosis Comments MULTIPLE LABS Routine 06/01/2022 documented in this encounter Results * Multiple labs (06/01/2022) us Not In System Ref Prov CA IMAGING Final Res ult MANUALLY TRANSCRIBED RESULTS documented in this encounter Visit Diagnoses Not on filedocumented in this encounter Additional Health Concerns Assessment Noted Time PHQ-9 Depression Total Score: 1 05/02/19 23 9:26 AM EST documented as of this encounter Care Teams Railroad Accountant Relationship Specialty Start Date End Date Carson Sullivan DO [address], [facility] [place] [address] PCP - General Family Medicine 02/14/17 documented as of this encounter
--- OUTSIDE RECORDS SUMMARY | 2024-10-29 13:03 | XMS_ITS | Encounter Summary ---
Author Organization [facility] Sys [facility] Address [facility] [id number] [address] [place] [address] Care Team Providers Care Cheese Cooker Name Role Phone LaurieCarson Mustapha LEIVA Primary Care Provider [phone] Reason for Visit * Reason Onset Date Comments Med Refill 12/07/2021 Encounter Details Date Type Department Care Team (Late st Contact Info) Description 12/07/2021 Refill [facility] - Family Medicine [address] [place] [address] Parris Mike CMA Social History Tobacco Use [...] have Coronavirus / COVID-19? No / Unsure 11/16/2021 2:18 PM EDT documented as of this encounter Plan of Treatment Upcoming Encounters Date Type Department Care Team (Late st Contact Info) Description 12/06/2024 11:15 AM EDT Office Visit [facility] - Family Medicine [address] [place] [address] Carson Sullivan DO [address], [place] [address] 10/14/2025 1:00 PM EDT Office Visit [facility] Medicine - Family Medicine [address] [place] [address] documented as of this encounter Visit Diagnoses Not on filedocumented in this encounter Care Teams Cheese Cooker Relationship Specialty Start Date End Date Carson Sullivan DO [address] [facility] [place] [address] PCP - General Family Medicine 02/14/17 documented as of this encounter
--- OUTSIDE RECORDS SUMMARY | 2024-10-29 13:03 | XMS_ITS | Encounter Summary ---
Author Organization [facility] Address [id number] [address] [place] [address] Care Team Providers Care Dental Prosthetist Name Role Phone Carson Sullivan DO Primary Care Provider [phone] Encounter Details Date Type Department Care Team (Late st Contact Info) Description 11/15/2021 Orders Only [facility] Internal Medicine - Family Medicine [address] [place] [phone] External, Scanning Provider Social History Tobacco Use Types Packs/Day Years Used Date Smoking Tobacco: Every Day Cigarettes 1 52 AUDIT-C Answer Date Recorded Q1: How often [...] PM EDT documented as of this encounter Functional Status * Audit-C Score Answer Date of Assessment Author 1 11/16/2021 3:21 PM EDT Carson Sullivan, DO * Question Answer Date of Assessment Author Q1: How often do you have a drink containing alcohol? Monthly or less 11/16/2021 3:21 PM EDT Carson Sullivan , Q2: How many drinks containing alcohol do you have on a typical day when you are drinking? 1 or 2 11/16/2021 3:21 PM EDT Cuong Sullivan DO Q3: How often do you have six or more drinks on one occasion? Never 11/16/2021 3:21 PM EDT Carson Sullivan , documented as of this encounter Plan of Treatment Upcoming Encounters Date Type Department Care Team (Late st Contact Info) Description 12/06/2024 11:15 AM EDT Office Visit [facility] - Family Medicine [address] [place] [address] Carson Sullivan DO [address] [facility] [address] 10/14/2025 1:00 PM EDT Office Visit [facility] - Family Medicine [address] [place] [address] documented as of this encounter Procedures Procedure Name Priority Date/Time Associated Diagnosis Comments MULTIPLE LABS Routine 11/12/2021 LIPID PROFILE Routine 11/12/2021 documented in this encounter Results * (ABNORMAL) Lipid profile (11/12/2021) External Cholesterol 215(A) <=200 MANUALLY TRANSCRIBED RESULTS External Cholesterol:Hdl 2.9 MANUALLY TRANSCRIBED RESULTS External Hdl Cholesterol 74(A) 40 - 60 MANUALLY TRANSCRIBED RESULTS External Ldl (Calc) 114.4 MANUALLY TRANSCRIBED RESULTS External Triglycerides 133 <=150 MANUALLY TRANSCRIBED RESULTS 11/12/2021 us Scanning Provider External LAB BLOOD ORDERABLES Final Result Performing Organization Address City/[facility] de Phone Number MANUALLY TRANSCRIBED RESULTS * Multiple labs (11/12/2021) 11/12/2021 us Scanning Provider External MO IMAGING Final Result Performing Organization Address [facility] de Phone Number MANUALLY TRANSCRIBED RESULTS documented in this encounter Visit Diagnoses Not on filedocumented in this encounter Care Teams Dental Prosthetist Relationship Specialty Start Date End Date Carson Sullivan DO [address], [place] [address] PCP - General Family Medicine 02/14/17 documented as of this encounter
--- OUTSIDE RECORDS SUMMARY | 2024-10-29 13:03 | XMS_ITS | Encounter Summary ---
Author Organization [facility] Address [facility] [place]-[id number] [address] [place] [address] Care Team Providers Care Housekeeping Room Attendant Name Role Phone Carson Sullivan DO Primary Care Provider [phone] Encounter Details Date Type Department Care Team (Late st Contact Info) Description 07/19/2024 Orders Only [facility] - Family Medicine [address] [place] [phone] Parris Mike CMA Degeneration of lumbar intervertebral disc; Lumbosacral spondylosis without myelopathy; Localized osteoarthrosis of both shoulder regions Social History Tobacco Use Types Packs/Day Years Used Date Smoking Tobacco: Every Day Cigarettes 1 52 Smokeless Tobacco: Never Comments:Trying to cut back- smoking about 1/2 PPD now but it depends; trying to quit so she can have shoulder replacement surgery Alcohol Use Standard Drinks/Week Comments Never 0 (1 standard drink = 0.6 oz pur e alcohol) [facility] Utilities Answer Date Recorded In the past 12 months has [employer] electric, gas, oil, or water company threatened [...] week 10/10/2023 How often do you attend chur ch or mormonism services? More than 4 times per year 10/10/2023 Do you belong to any clubs o r organizations such as yazidism groups, unions, fraternal or athletic groups, or [...] PHQ-2 Answer Date Recorded Total Score 0 06/06/2024 [facility] - [...] Recorded Do you need help finding a [facility] career center and/or a training program? No 07/18/2022 Hunger Screening Answer Date Recorded Within the past 12 months we worried whether our food would run out before we got money to buy more. Never True 06/06/2024 Within the past 12 months th e food we bought just didn't last and we didn't have money to get more. 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 documented in this encounter Results * Ambulatory referral to Pain Management ([facility]) (07/19/2024 6:58 AM EDT) us Carson Sullivan DO OUTPATIENT REFERRAL ORDERABL ES Final Result MANUALLY TRANSCRIBED RESULTS documented in this encounter Visit Diagnoses Diagnosis Degeneration of lumbar intervertebral disc Degeneration of lumbar or lumbosacral intervertebral disc Lumbosacral spondylosis without 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
--- OUTSIDE RECORDS SUMMARY | 2024-10-29 13:03 | XMS_ITS | Encounter Summary ---
Author Organization [facility] Address [id number] [address] [place] [address] Care Team Providers Care Dump Truck Driver Name Role Phone Carson Sullivan DO Primary Care Provider Encounter Details Date Type Department Care Team (Late st Contact Info) Description 04/20/2022 Orders Only [facility] - Family Medicine [address] [place] [address] Robby Coleman DO [address] [place] [address] Social History Tobacco Use Types Packs/Day Years [...] Medicine - Family Medicine [address] [place] [address] Carson Sullivan DO [address] [facility] [place] [address] 10/14/2025 1:00 PM EDT Office Visit [facility] - Family Medicine [address] [place] [address] documented as of this encounter Visit Diagnoses Not on filedocumented in this encounter Care Teams Dump Truck Driver Relationship Specialty Start Date End Date Carson Sullivan DO [address] [facility] [place] [address] PCP - General Family Medicine 02/14/17 documented as of this encounter
--- OUTSIDE RECORDS SUMMARY | 2024-10-29 13:03 | XMS_ITS | Encounter Summary ---
Author Organization [facility] Address [facility] [place]-[id number] [address] [place] [address] Care Team Providers Care Manager Solar Name Role Phone Carson Sullivan DO Primary Care Provider [phone] Encounter Details Date Type Department Care Team (Late st Contact Info) Description 02/21/2022 Telephone [facility] - Family Medicine [address] [place] [address] Summer Groves MA Social History Tobacco Use Types Packs/Day Years [...] encounter Miscellaneous Notes * Telephone Encounter - Summer Groves MA - 02/21/2022 9:35 AM EST Pat called and said medication helped about 60 %, however, she wants to know if she can get a refill on the prednisone to get rid of pain completely. She also is due for norco on 02/27 and pharm willbe closed , but wants to order picker on 02/26.told will let her know if any issues * Telephone Encounter - Do Ryan - 02/21/2022 9:35 AM EST Patient called again about getting the prednisone and says it hurts really back * Telephone Encounter - Carson Sullivan DO - 02/21/2022 9:35 AM EST Okay I sent prednisone in. She should still give us refill request in a couple days for the [place] documented in this encounter Plan of Treatment Upcoming Encounters Date Type Department Care Team (Late st Contact Info) Description 12/06/2024 11:15 AM EDT Office Visit [facility] - Family Medicine [address] [place] [address] Carson Sullivan DO [address] [place] [address] 10/14/2025 1:00 PM EDT Office Visit [facility] - Family Medicine [address] [place] [address] documented as of this encounter Visit Diagnoses Not on filedocumented in this encounter Care Teams Manager Solar Relationship Specialty Start Date End Date Carson Sullivan DO [address], [place] [address] PCP - General Family Medicine 02/14/17 documented as of this encounter
--- OUTSIDE RECORDS SUMMARY | 2024-10-29 13:03 | XMS_ITS | Clinical Summary ---
Author Organization [facility] Address [address] [place], [place] [address] Care Team Providers Care Closing Machine Operator Name Role Phone Unavailable Primary Care Provider Unavailabl e Allergies No known active allergies Medications VYTORIN 10/40 10 MG-40 MG ORAL TAB Take one(1) tablet daily. 0 0 11/15/2004 Active DARVOCET-N 100 100 MG-650 MG ORAL TAB two tabs bid prn 0 0 11/15/2004 Active PREVACID 30 MG ORAL CPDR Take one(1) capsule daily. 0 0 11/15/2004 Active ADVIL 200 MG ORAL CAP 3 tabs once daily 0 0 11/15/2004 Active CELEBREX 200 MG ORAL CAP Take one(1) capsule twice daily. 0 0 11/15/2004 Active Family History Medical History Relation Comments Cancer Father Lung Coronary Artery Disease Mother Diabetes Mother Relation Status Comments Father Mother Social History Tobacco Use Types Packs/Day Years Used Date Smoking Tobacco: Every Day Cigarettes 1 35 Alcohol Use Standard Drinks/Week Comments Yes 0 (1 standard drink = 0.6 oz pur e alcohol) ocassional Comments No Sex and Gender Information Value Date Recorded Sex Assigned at Not on file Legal Sex Female 9:21 AM EST Gender Identity Not on file Sexual Orientation Not on file Last Filed Vital Signs Vital Sign Reading Time Taken Comments Blood Pressure 122/80 11/15/2004 9:00 AM EDT Pulse 84 11/15/2004 9:00 AM EDT Temperature - - Respiratory Rate 18 11/15/2004 9:00 AM EDT Oxygen Saturation - - Inhaled Oxygen Concentration - - Weight 90.7 kg (200 lb) 11/15/2004 9:00 AM EDT Height 165.1 cm (5' 5 ) 11/15/2004 9:00 AM EDT Body Mass Index 33.28 11/15/2004 9:00 AM EDT Plan of Treatment Health Maintenance Due Date Last Done Comments Anxiety Screening 05/10/1965 Depression Screening 05/10/1965 Hepatitis C Screening 05/10/1965 DTaP,Tdap,Td Vaccine (1 - Tdap) 05/10/1966 Diabetes Screening 05/10/1992 Pneumococcal Vaccine: 50+ (1 of 1 - PCV) 05/10/1997 Shingrix Vaccine (1 of 2) 05/10/1997 Bone Density Screening 05/10/2012 RSV Vaccine (1 - 1-dose 75+ series) 05/10/2022 Advance Directive Discussion 03/06/2024 Influenza Vaccine (#1) 2024 Insurance [facility] PPO Member Subscriber Plan / Payer (Ef fective 2002-Present) Name:Drea Frederick Relation to Subscriber:Self Name:Drea Frederick Payer ID:[id number] (NAIC) Type:PPO Address: [facility] [id number] PPO
--- OUTSIDE RECORDS SUMMARY | 2024-10-29 13:03 | XMS_ITS | Encounter Summary ---
Author Organization [facility] Address [facility] [place]-[id number] [address] [place] [address] Care Team Providers Care Computer Network Engineer Name Role Phone Carson Sullivan DO Primary Care Provider Encounter Details Date Type Department Care Team (Late st Contact Info) Description 03/24/2022 Telephone [facility] - Family Medicine [address] [place] [address] Carson Sullivan DO [address], [facility] [place] [address] Social History Tobacco Use Types Packs/Day Years [...] * Telephone Encounter - Do Ryan - 03/24/2022 1:32 PM EST Patient called and said she went to [facility] to get her labs done but they didn't have any orders, can you please resend the orders over * Telephone Encounter - Carson Sullivan DO - 03/24/2022 1:32 PM EST ok documented in this encounter Plan of Treatment Upcoming Encounters Date Type Department Care Team (Late st Contact Info) Description 12/06/2024 11:15 AM EDT Office Visit [facility] - Family Medicine [address] [place] [address] Carson Sullivan DO [address], [facility] [place] [address] 10/14/2025 1:00 PM EDT Office Visit [facility] - Family Medicine [address] [place] [address] documented as of this encounter Visit Diagnoses Not on filedocumented in this encounter Care Teams Computer Network Engineer Relationship Specialty Start Date End Date Carson Sullivan DO [address], [facility] [place] [address] PCP - General Family Medicine 02/14/17 documented as of this encounter
--- OUTSIDE RECORDS SUMMARY | 2024-10-29 13:03 | XMS_ITS | Encounter Summary ---
Author Organization [facility] Address [facility] [place]-[id number] [address] [place] [address] Care Team Providers Care Drapery [place] Automatic Name Role Phone Carson Sullivan DO Primary Care Provider Encounter Details Date Type Department Care Team (Late st Contact Info) Description 05/30/2023 Orders Only [facility] - Family Medicine [address] [place] [phone] Carson Sullivan DO [address], [place] [address] Social History Tobacco Use Types Packs/Day Years [...] often do you attend chur ch or sikh services? More than 4 times per year 08/02/2022 Do you belong to any clubs o r organizations such as latter-day groups, unions, fraternal or athletic groups, or [...] PHQ-2 Answer Date Recorded Total Score 0 04/28/2023 [facility] - [...] got money to buy more. Never True 04/28/2023 Within the past 12 months th e food we bought just didn't last and we didn't have money to get more. Never True 04/28/2023 Purpose - Life Answer Date Recorded I [...] - Family Medicine [address] [place] [address] Carson Sullivan DO [address] [facility] [place] [address] 10/14/2025 1:00 PM EDT Office Visit [facility] - Family Medicine [address] [place] [place] [address] documented as of this encounter Visit Diagnoses Not on filedocumented in this encounter Additional Health Concerns Assessment Noted Time PHQ-9 Depression Total Score: 0 04/28/19 24 10:01 AM EST documented as of this encounter Care Teams Drapery [place] Automatic Relationship Specialty Start Date End Date Carson Sullivan DO [address] [facility] [place] [address] PCP - General Family Medicine 02/14/17 documented as of this encounter
--- OUTSIDE RECORDS SUMMARY | 2024-10-29 13:03 | XMS_ITS | Encounter Summary ---
Author Organization [facility] Address [facility] [place]-[id number] [address] [place] [address] Care Team Providers Care Filter Washer And Presser Name Role Phone Carson Sullivan DO Primary Care Provider Encounter Details Date Type Department Care Team (Late st Contact Info) Description 04/13/2022 Telephone [facility] - Family Medicine [address] [place] [phone] Carson Sullivan DO [address], [place] [address] Social History Tobacco Use Types Packs/Day Years [...] Medicine - Family Medicine [address] [place] [address] Carson Sullivan DO [address] [facility] [place] [address] 10/14/2025 1:00 PM EDT Office Visit [facility] - Family Medicine [address] [place] [address] documented as of this encounter Visit Diagnoses Not on filedocumented in this encounter Care Teams Filter Washer And Presser Relationship Specialty Start Date End Date Carson Sullivan DO [address] [facility] [facility] [place] [address] PCP - General Family Medicine 02/14/17 documented as of this encounter
--- OUTSIDE RECORDS SUMMARY | 2024-10-29 13:03 | XMS_ITS | Encounter Summary ---
Author Organization [facility] Address [facility] [place]-[id number] [address] [place] [address] Care Team Providers Care Membership Sales Representative Name Role Phone Carson Sullivan DO Primary Care Provider Encounter Details Date Type Department Care Team (Late st Contact Info) Description 06/03/2022 Orders Only [facility] - Family Medicine [address] [place] [address] Ref Prov, [place] [address] Social History Tobacco Use Types Packs/Day Years [...] Medicine - Family Medicine [address] [place] [address] Carson Sullivan DO [address], [facility] [place] [address] 10/14/2025 1:00 PM EDT Office Visit [facility] - Family Medicine [address] [place] [address] documented as of this encounter Procedures Procedure Name Priority Date/Time Associated Diagnosis Comments MULTIPLE LABS Routine 06/02/2022 documented in this encounter Results * Multiple labs (06/02/2022) us Not In System Ref Prov MO IMAGING Final Res ult MANUALLY TRANSCRIBED RESULTS documented in this encounter Visit Diagnoses Not on filedocumented in this encounter Additional Health Concerns Assessment Noted Time PHQ-9 Depression Total Score: 1 05/02/19 23 9:26 AM EST documented as of this encounter Care Teams Membership Sales Representative Relationship Specialty Start Date End Date Carson Sullivan DO [address], [facility] [place] [address] PCP - General Family Medicine 02/14/17 documented as of this encounter
--- OUTSIDE RECORDS SUMMARY | 2024-10-29 13:03 | XMS_ITS | Encounter Summary ---
Author Organization [facility] Address [facility] [id number] [address] [place] [address] Care Team Providers Care Paper Machine Back Tender Name Role Phone Carson Sullivan DO Primary Care Provider [phone] Encounter Details Date Type Department Care Team (Late st Contact Info) Description 05/24/2024 Orders Only [facility] Internal Medicine - Family Medicine [address] [place] [address] Ref Prov, [place] [address] Social History Tobacco Use Types Packs/Day Years Used Date Smoking Tobacco: Every Day Cigarettes 1 52 Smokeless Tobacco: Never Comments:Trying to cut back- smoking about 1/2 PPD now but it depends; trying to quit so she can have shoulder replacement surgery Alcohol Use Standard Drinks/Week Comments Never 0 (1 standard drink = 0.6 oz pur e alcohol) [facility] Utilities Answer Date Recorded In the past 12 months has [employer], gas, oil, or water company threatened [...] week 10/10/2023 How often do you attend [facility] or congregation services? More than 4 times per year 10/10/2023 Do you belong to any clubs o r organizations such as mandaeism groups, unions, fraternal or athletic groups, or [...] Answer Date Recorded Total Score 0 12/28/2023 [facility] of Occupat ional Health - [...] Recorded Do you need help finding a [facility] career center and/or a training program? [...] - Family Medicine [address] [place] [address] Carson Sullivan, DO [address] [facility] [place] [address] 10/14/2025 1:00 PM EDT [facility] - Family Medicine [address] [place] [address] documented as of this encounter Procedures Procedure Name Priority Date/Time Associated Diagnosis Comments CT CTA CHEST Routine 05/22/2024 8:18 AM EDT documented in this encounter Results * CT angiogram chest (05/22/2024 8:18 AM EDT) Anatomical Region Laterality Modality Lung, Body, Chest, Vascular, Body Covera N/A Computed Tomography us Not In System Ref Prov IMG CT ORDERABLES Final R esult documented in this encounter Visit Diagnoses Not on filedocumented in this encounter Additional Health Concerns Assessment Noted Time PHQ-9 Depression Total Score: 0 12/28/19 1:00 PM EDT documented as of this encounter Care Teams Paper Machine Back Tender Relationship Specialty Start Date End Date Carson Sullivan DO [address], [facility] [place] [address] PCP - General Family Medicine 02/14/17 documented as of this encounter
--- OUTSIDE RECORDS SUMMARY | 2024-10-29 13:03 | XMS_ITS | Encounter Summary ---
Author Organization [facility] Address [facility] [id number] [address] [place] [address] Care Team Providers Care Meat Carver Name Role Phone Carson Sullivan DO Primary Care Provider [phone] Encounter Details Date Type Department Care Team (Late st Contact Info) Description 06/01/2022 Orders Only [facility] Internal Medicine - Family Medicine [address] [place] [phone] External, Scanning Provider Social History Tobacco Use [...] Medicine - Family Medicine [address] [place] [address] Carson Sullivan DO [address] [facility] [place] [address] 10/14/2025 1:00 PM EDT Office Visit [facility] Medicine - Family Medicine [address] [place] [address] documented as of this encounter Procedures Procedure Name Priority Date/Time Associated Diagnosis Comments CBC (NO DIFF) Routine 06/01/2022 documented in this encounter Results * CBC without diff (06/01/2022) us Scanning Provider External LAB BLOOD ORDERABLES Final Result MANUALLY TRANSCRIBED RESULTS documented in this encounter Visit Diagnoses Not on filedocumented in this encounter Additional Health Concerns Assessment Noted Time PHQ-9 Depression Total Score: 1 05/02/19 23 9:26 AM EST documented as of this encounter Care Teams Meat Carver Relationship Specialty Start Date End Date Carson Sullivan DO [address] [facility] [place] [address] PCP - General Family Medicine 02/14/17 documented as of this encounter
--- OUTSIDE RECORDS SUMMARY | 2024-10-29 13:03 | XMS_ITS | Encounter Summary ---
Author Organization [employer] [facility] tem Address [facility] [id number] [address] [place] [address] Care Team Providers Care Second Operator Name Role Phone LaurieCarson Mustapha LEIVA Primary Care Provider [phone] Reason for Visit * Reason Onset Date Comments Med Refill 04/20/2022 Encounter Details Date Type Department Care Team (Late st Contact Info) Description 04/20/2022 Refill [facility] Internal Medicine - Family Medicine [address] [place] [phone] Parris Mike CMA Lumbosacral spondylosis without myelopathy Social History Tobacco Use Types Packs/Day Years [...] Medicine - Family Medicine [address] [place] [address] Carson Sullivan DO [address] [facility] [address] 10/14/2025 1:00 PM EDT Office Visit [facility] Medicine - Family Medicine [address] [place] [phone] documented as of this encounter Visit Diagnoses Diagnosis Lumbosacral spondylosis without myelopathy documented in this encounter Care Teams Second Operator Relationship Specialty Start Date End Date Carson Sullivan DO [address] [facility] [address] PCP - General Family Medicine 02/14/17 documented as of this encounter
--- OUTSIDE RECORDS SUMMARY | 2024-10-29 13:04 | XMS_ITS | Encounter Summary ---
Author Organization [employer] [facility] Address [facility] [id number] [address] [place] [address] Care Team Providers Care Freight Adjuster Name Role Phone Carson Sullivan DO Primary Care Provider [phone] Encounter Details Date Type Department Care Team (Late st Contact Info) Description 05/25/2023 Telephone [facility] Internal Medicine - Family Medicine [address] [place] [address] Parris Mike CMA Social History Tobacco Use [...] often do you attend chur ch or uatsdin services? More than 4 times per year 08/02/2022 Do you belong to any clubs o r organizations such as yarsanism groups, unions, fraternal or athletic groups, or [...] Answer Date Recorded Total Score 0 04/28/2023 [facility] Occupat ional Health - Occupational [...] Recorded Do you need help finding a [facility] career [facility] and/or a training program? No [...] Miscellaneous Notes * Telephone Encounter - Parris Mike CMA - 05/25/2023 1:04 PM EDT Patient is due for her Cologard documented in this encounter Plan of Treatment Upcoming Encounters Date Type Department Care Team (Late st Contact Info) Description 12/06/2024 11:15 AM EDT Office Visit [facility] Medicine - Family Medicine [address] [place] [address] Carson Sullivan DO [address] [place] [address] [address] 10/14/2025 1:00 PM EDT Office Visit [facility] Medicine - Family Medicine [address] [place] [address] documented as of this encounter Visit Diagnoses Not on filedocumented in this encounter Additional Health Concerns Assessment Noted Time PHQ-9 Depression Total Score: 0 04/28/19 24 10:01 AM EST documented as of this encounter Care Teams Freight Adjuster Relationship Specialty Start Date End Date Carson Sullivan DO [address] [facility] [address] PCP - General Family Medicine 02/14/17 documented as of this encounter
--- OUTSIDE RECORDS SUMMARY | 2024-10-29 13:04 | XMS_ITS | Clinical Summary ---
Author Organization [employer] [facility] tem Address [facility] [id number] [address] [place] [address] Care Team Providers Care Back Joiner Name Role Phone Carson Sullivan DO Primary Care Provider [phone] Allergies Active Allergy Reactions Criticality Noted Date Comments Duloxetine Other (See Comments) 12/28/2023 Kidney damage Hydrochlorothiazide Itching High 02/09/2023 Nickel Rash Low 02/09/2023 Rhzdqyn-Gqk-Zsj Reductase Inhibitors pain 02/09/2023 Other Reaction(s): Myalgia Sulfa (Sulfonamide Antibiotics) Photosensitivity Medium 11/15/2021 Medications naloxone (NARCAN) 4 mg/actuation spray,non-aerosol nasal spray Administer 1 spray (4 mg total) into each nostril as needed. 1 spray Q2-3 minutes as needed Active lutein 10 mg tablet Take 1 tablet by mouth daily. Active polyethylene glycol (GLYCOLAX) 17 gram/dose powder Take 17 g by mouth in the morning. Active Lactobacillus acidophilus (PROBIOTIC) 10 billion cell capsule Take 1 capsule by mouth See Admin Instructions. Active vg-vxk-rorzn-calci um carb-K1 400 mcg-500 mg calcium-20 mcg tablet Take 1 tablet by mouth in the morning. 90 tablet 3 Active fsh/flx/prim/cur/b or/om3,6,9 5 (OMEGA 3-6-9 FATTY ACIDS ORAL) Active vitamin E 400 units capsule Active ascorbic acid, vitamin C, (VITAMIN C) 1000 mg tablet Active aspirin (LORIE LOW DOSE ASPIRIN) 81 mg Active fluticasone propionate (FLONASE) 50 mcg/actuation nasal spray Administer 1 spray into each nostril in the morning. 9.9 mL 1 3 Active oxyCODONE (ROXICODONE) 5 mg immediate release tablet 4 Active pseudoephedrine (SUDAFED) 30 mg tablet Active alendronate (FOSAMAX) 70 mg tablet Take 1 tablet (70 mg total) by mouth every 7 days. In a.m. with water on empty stomach, nothing else by mouth and remain upright for 30min 12 tablet 3 4 Active lidocaine (LIDODERM) 5 %Indications:Post- herpetic polyneuropathy Place 1 patch on the skin daily as needed for pain. Remove & Discard patch within 12 hours or as directed by MD Tao patch 2 5 Active traZODone (DESYREL) 100 mg tablet Take 1 tablet (100 mg total) by mouth nightly as needed for sleep. 5 Active metoprolol succinate XL (TOPROL XL) 25 mg 24 hr tabletIndications: Essential hypertension TAKE 1 TABLET BY MOUTH IN THE MORNING 180 tablet 1 5 Active omeprazole (PriLOSEC) 20 mg capsule Take 1 capsule (20 mg total) by mouth every morning before breakfast. TAKE 1 CAPSULE DAILY 5 Active rosuvastatin (CRESTOR) 5 mg tablet Take 1 tablet (5 mg total) by mouth nightly. 30 tablet 11 5 Active amLODIPine (NORVASC) 10 mg tablet TAKE 1 TABLET BY MOUTH DAILY 90 tablet 1 5 Active levothyroxine (SYNTHROID, LEVOTHROID) 112 MCG tablet TAKE 1 TABLET BY MOUTH IN THE MORNING 90 tablet 1 5 Active lisinopriL (PRINIVIL,ZESTRIL) 40 mg tablet TAKE 1 TABLET BY MOUTH DAILY 90 tablet 2 5 Active guaiFENesin (MUCINEX) 600 mg tablet extended release 12hr Take 1 tablet (600 mg total) by mouth every 12 (twelve) hours as needed. Active latanoprost (XALATAN) 0.005 % ophthalmic solution Administer 1 drop to both eyes nightly. 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 09/26/2023 Sleep disturbance 06/28/2023 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 06/28/2023 Postlaminectomy syndrome, not elsewhere classifi ed 07/13/2022 07/13/2022 Acquired trigger finger 11/16/2021 Anxiety 11/16/2021 Basal cell carcinoma of skin 11/16/2021 Femoral bruit 11/16/2021 Degeneration of lumbar intervertebral disc 11/16 Displacement of lumbar inter vertebral disc without myelopathy 11/16/2021 Fibromyalgia 11/16/2021 Gastroesophageal reflux disease 11/16/2021 Herniation of intervertebral disc 11/16/2021 Hiatal hernia 11/16/2021 Hyperlipidemia 11/16/2021 Hypokalemia 11/16/2021 Hypothyroidism 11/16/2021 Lumbosacral spondylosis without myelopathy 11/16 Migraine 11/16/2021 Osteopenia 11/16/2021 Reactive airway disease 11/16/2021 Tobacco dependence syndrome 11/16/2021 Vitamin D deficiency 11/16/2021 Essential hypertension 05/03/2021 Allergic rhinitis 09/21/2020 Complication of surgical procedure 10/26/2018 Spinal stenosis of lumbar region 09/14/2017 Hyperglycemia 06/20/2016 Resolved Problems Problem Noted Date Diagnosed Date Resolved Date Stage 3b chronic kidney disease 10/19/2022 06/06/2024 Stage 4 chronic kidney disea se due to hypertension 03/31/2022 10/19/2022 Peripheral vascular disease 02/01/2021 06/06/2024 Overweight 06/15/2016 07/18/2022 Encounters Date Type Department Care Team Description 10/10/2024 9:40 AM EDT Office Visit [facility] - Family Medicine [address] [place] [address] Carson Sullivan, DO Medicare annual wellness visit, subsequent (Primary Dx); Screening for depression 10/10/2024 Travel 09/26/2024 Refill [facility] Internal Medicine - Family Medicine [address] [place] [address] Carson Sullivan DO from Last 3 Months Immunizations Immunization Administration Dates Next Due Influenza (IM) Preservative Free 12/08/2014 Influenza High Dose Preserva tive Free IM 12/04/2020,12/10/2015 Influenza Vaccine, Quadrival ent, Adjuvanted 02/09/2023 Influenza, Im Trivalent Preservative 11/25/2016 Influenza, Injectable, Quadrivalent 11/20/2017 Influenza, Injectable, quadr ivalent (PF) 11/25/2019,11/25/2016 Influenza, Trivalent, Adjuvanted 024,05/18/2019,11/19/2018,11/20 Influenza, Unspecified 12/23/2013 Pneumococcal Conjugate 13-Valent 03/10/2015,01/05 Pneumococcal Polysaccharide 03/14/2016 Tdap 04/10/2014 Family History Medical History Relation Name Comments Heart attack Father Hyperlipidemia Father Other Father Malignant Lung Tumor Gestational diabetes Mother Heart disease Mother Heart failure Mother Hyperlipidemia Mother Kidney disease Mother Renal Failure Other Mother Malignant tumor of cervix; Hypercholesterolemia Heart attack Sister Lung cancer Sister Peripheral vascular disease Sister Relation Name Status Comments Father Mother Sister Social History Tobacco Use Types Packs/Day Years Used Date Smoking Tobacco: Every Day Cigarettes 1 52 Smokeless Tobacco: Never Comments:Trying to cut back- smoking about 1/2 PPD now but it depends; trying to quit so she can have shoulder replacement surgery Alcohol Use Standard Drinks/Week Comments Never 0 (1 standard drink = 0.6 oz pur e alcohol) [facility] Utilities Answer Date Recorded In the past 12 months has [employer], gas, oil, or water [employer] threatened to shut off services in your home? No 06/28/2023 Social Connection and Isolat ion Panel [NHANES] Answer Date Recorded In a typical week, how many times do you talk on the phone with family, friends, or neighbors? Three times a week 10/10/2024 How often do you get togethe r with friends or relatives? Once a week 10/10/2024 How often do you attend chur or yarsanism services? More than 4 times per year 10/10/2024 Do you belong to any clubs o r organizations such as protestant groups, unions, fraternal or athletic groups, or school groups? No 10/10/2024 How often do you attend meet ings of the clubs or organizations you belong to? Never 10/10/2024 Are you , , di vorced, , never , or living with a partner? 10/10/2024 AUDIT-C Answer Date Recorded Q1: How often [...] PHQ-2 Answer Date Recorded Total Score 0 10/10/2024 [facility] of Occupat ional Health - Occupational Stress [...] to strenuous exercise (like a brisk walk)? 0 days 10/10/2024 On average, how many minutes do you engage in exercise at this level? 0 min 10/10/2024 PRAPARE - Transportation Answer Date Re corded [...] Recorded Do you need help finding a [facility] career center and/or a training program? No 07/18/2022 Hunger Screening Answer Date Recorded Within the past 12 months we worried whether our food would run out before we got money to buy more. Never True 10/10/2024 Within the past 12 months th e food we bought just didn't last and we didn't have money to get more. Never True 10/10/2024 Purpose - Life Answer Date Recorded I have a purpose and direction in my life. Stron gly Agree 07/18/2022 Comments Unknown Sex and Gender Information Value Date Recorded Sex Assigned at Not on file Legal Sex Female 11:29 AM EDT Gender Identity Not on file Sexual Orientation Not on file Last Filed Vital Signs Vital Sign Reading Time Taken Comments Blood Pressure 130/72 10/10/2024 9:25 AM EDT Pulse 75 06/06/2024 11:08 AM EDT Temperature 36.6 C (97.9 F) 06/06/2024 11:08 AM EDT Respiratory Rate 18 06/06/2024 11:08 AM EDT Oxygen Saturation 99% 06/06/2024 11:08 AM EDT Inhaled Oxygen Concentration - - Weight 64.9 kg (143 lb) 10/10/2024 9:25 AM EDT Height 157.5 cm (5' 2 ) 10/10/2024 9:25 AM EDT Body Mass Index 26.16 10/10/2024 9:25 AM EDT Plan of Treatment Upcoming Encounters Date Type Department Care Team (Late st Contact Info) Description 12/06/2024 11:15 AM EDT Office Visit [facility] - Family Medicine [address] [place] [address] Carson Sullivan, DO [address], [facility] [place] [address] 10/14/2025 1:00 PM EDT Office Visit [facility] Medicine - Family Medicine [address] [place] [address] Health Maintenance Due Date Last Done Comments Tobacco Counseling 1945 Zoster (Shingles) Vaccine (1 of 2) 05/10/1966 DTaP,Tdap and Td Vaccines (2 - Td or Tdap) 04/10/2024 04/10/2014 Influenza Vaccine 11/04/2024 12/28/2023, , 12/04/2020, Additional history exists Depression Screening 10/10/2025 10/10/2024 Fall Risk Screening 10/10/2025 10/10/2024 Medicare Annual Wellness Visit 10/10/2025 0 10/10/2024, 10/10/2023, 08/02/2022 Tobacco Screening 10/10/2025 10/10/2024 Medical Devices Not on file Insurance [employer] MEDICARE Care Teams Back Joiner Relationship Specialty Start Date End Date Carson Sullivan DO [address], [address] [place], [place] [phone] PCP - General Family Medicine 02/14/17
--- OUTSIDE RECORDS SUMMARY | 2024-10-29 13:04 | XMS_ITS | Encounter Summary ---
Author Organization [facility] [employer] [facility] tem Address [facility] [id number] [address] [place] [address] Care Team Providers Care Supervisor Forming And Tempering Name Role Phone Carson Sullivan DO Primary Care Provider Reason for Visit * Reason Comments Med Refill Encounter Details Date Type Department Care Team (Late st Contact Info) Description 11/08/2021 Refill [facility] - Radiation Oncology [address] [place] [address] Carson Sullivan DO [address], [place] [address] Social History Tobacco Use Types Packs/Day Years Used Date Smoking Tobacco: Every Day Cigarettes 1 52 Childcare Answer Date Recorded Childcare Unknown 08/15/2018 [...] Medicine - Family Medicine [address] [place] [address] Carson Sullivan DO [address] [facility] [place] [address] 10/14/2025 1:00 PM EDT Office Visit [facility] - Family Medicine [address] [place] [address] documented as of this encounter Visit Diagnoses Not on filedocumented in this encounter Care Teams Supervisor Forming And Tempering Relationship Specialty Start Date End Date Carson Sullivan DO [address] [facility] [place] [address] PCP - General Family Medicine 02/14/17 documented as of this encounter
--- OUTSIDE RECORDS SUMMARY | 2024-10-29 13:04 | XMS_ITS | Encounter Summary ---
Author Organization [facility] Address [facility] [id number] [address] [place] [address] Care Team Providers Care Perioperative Assistant Name Role Phone Carson Sullivan DO Primary Care Provider Encounter Details Date Type Department Care Team (Late st Contact Info) Description 04/03/2023 Orders Only [facility] Medicine - Family Medicine [address] [place] [address] Lian Zambrano, FUEL YARD OPERATOR-HEEL SEAT FLAP STAPLER [address] [place] [address] Neck pain Social History Tobacco Use Types Packs/Day Years [...] often do you attend chur ch or yarsani services? More than 4 times per year 08/02/2022 Do you belong to any clubs o r organizations such as buddhist groups, unions, fraternal or athletic groups, or [...] PHQ-2 Answer Date Recorded Total Score 0 03/30/2023 [facility] of Occupat ional Health - Occupational [...] got money to buy more. Never True 03/30/2023 Within the past 12 months th e food we bought just didn't last and we didn't have money to get more. Never True 03/30/2023 Purpose - Life Answer Date Recorded I [...] Medicine - Family Medicine [address] [place] [address] Carson Sullivan, DO [address] [facility] [place] [address] 10/14/2025 1:00 PM EDT Office Visit [facility] - Family Medicine [address] [place] [address] documented as of this encounter Procedures Procedure Name Priority Date/Time Associated Diagnosis Comments XR SPINE CERVICAL 3 VWS OR LESS Routine 03/31/2023 Neck pain documented in this encounter Results * X-ray spine cervical 3 views or less (03/31/2023) Anatomical Region Laterality Modality MSK, Neuro, Spine, C-spine N/A Compu di Radiography Lian Zambrano APRN-ADITYA IMG DIAGNOSTIC IMAGING O RDERABLES Final Result documented in this encounter Visit Diagnoses Diagnosis Neck pain Cervicalgia documented in this encounter Additional Health Concerns Assessment Noted Time PHQ-9 Depression Total Score: 0 03/30/19 24 8:30 AM EST documented as of this encounter Care Teams Perioperative Assistant Relationship Specialty Start Date End Date Carson Sullivan G, DO [address] [facility] [place] [address] PCP - General Family Medicine 02/14/17 documented as of this encounter
--- OUTSIDE RECORDS SUMMARY | 2024-10-29 13:04 | XMS_ITS | Encounter Summary ---
Author Organization [facility] Address [facility] [id number] [address] [place] [address] Care Team Providers Care Supervisor Bakery Sanitation Name Role Phone Carson Sullivan DO Primary Care Provider Encounter Details Date Type Department Care Team (Late st Contact Info) Description 11/09/2022 Orders Only [facility] Medicine - Family Medicine [address] [place] [phone] Carson Sullivan DO [address] [place] [address] Social History Tobacco Use Types Packs/Day Years [...] often do you attend chur ch or baptism services? More than 4 times per year 08/02/2022 Do you belong to any clubs o r organizations such as temple groups, unions, fraternal or athletic groups, or [...] Answer Date Recorded Total Score 0 10/19/2022 [facility] Occupat ional Health - [...] - Family Medicine [address] [place] [address] Carson Sullivan DO [address] [facility] [place] [address] 10/14/2025 1:00 PM EDT Office Visit [facility] - Family Medicine [address] [place] [address] documented as of this encounter Visit Diagnoses Not on filedocumented in this encounter Additional Health Concerns Assessment Noted Time PHQ-9 Depression Total Score: 0 10/20/19 23 9:40 AM EDT documented as of this encounter Care Teams Supervisor Bakery Sanitation Relationship Specialty Start Date End Date Carson Sullivan DO [address] [facility] [place] [address] PCP - General Family Medicine 02/14/17 documented as of this encounter
--- OUTSIDE RECORDS SUMMARY | 2024-10-29 13:04 | XMS_ITS | Encounter Summary ---
Author Organization [facility] Address [facility] [id number] [address] [place] [address] Care Team Providers Care City Carrier Name Role Phone Carson Sullivan DO Primary Care Provider Encounter Details Date Type Department Care Team (Late st Contact Info) Description 11/23/2022 Orders Only [facility] Internal Medicine - Family Medicine [address] [place] [phone] Carson Sullivan DO [address], [place] [address] Social History Tobacco Use Types Packs/Day Years [...] often do you attend chur ch or denominational services? More than 4 times per year 08/02/2022 Do you belong to any clubs o r organizations such as adventist groups, unions, fraternal or athletic groups, or [...] Answer Date Recorded Total Score 0 10/19/2022 [facility] - Occupational [...] - Family Medicine [address] [place] [address] Carson Sullivan DO [address] [facility] [place] [address] 10/14/2025 1:00 PM EDT Office Visit [facility] Internal Medicine - Family Medicine [address] [place] [address] documented as of this encounter Procedures Procedure Name Priority Date/Time Associated Diagnosis Comments CT CHEST W WO CONT Routine 11/19/2022 11:27 AM EDT documented in this encounter Results * CT chest with and without contrast (11/19/2022 11:27 AM EDT) Anatomical Region Laterality Modality Body, Lung, Chest, Body Covera N/A C omputed Tomography us Scanning Provider External IMG CT ORDERABLES Fin al Result documented in this encounter Visit Diagnoses Not on filedocumented in this encounter Additional Health Concerns Assessment Noted Time PHQ-9 Depression Total Score: 0 10/20/19 23 9:40 AM EDT documented as of this encounter Care Teams City Carrier Relationship Specialty Start Date End Date Carson Sullivan DO [address], [place] [address] PCP - General Family Medicine 02/14/17 documented as of this encounter
--- OUTSIDE RECORDS SUMMARY | 2024-10-29 13:04 | XMS_ITS | Encounter Summary ---
Author Organization [facility] Address [facility] [id number] [address] [place] [address] Care Team Providers Care Mfts Name Role Phone Carson Sullivan DO Primary Care Provider Encounter Details Date Type Department Care Team (Late st Contact Info) Description 04/04/2023 Orders Only [facility] Internal Medicine - Family Medicine [address] [place] [phone] Crason Sullivan DO [address], [place] [address] Social History Tobacco Use Types Packs/Day Years [...] often do you attend chur ch or adventism services? More than 4 times per year 08/02/2022 Do you belong to any clubs o r organizations such as baptism groups, unions, fraternal or athletic groups, or [...] Answer Date Recorded Total Score 0 03/30/2023 [facility] - Occupational [...] - Family Medicine [address] [place] [address] Carson Sullivan DO [address] [facility] [place] [address] 10/14/2025 1:00 PM EDT Office Visit [facility] Internal Medicine - Family Medicine [address] [place] [address] documented as of this encounter Procedures Procedure Name Priority Date/Time Associated Diagnosis Comments MULTIPLE LABS Routine 03/20/2023 3:24 PM EST documented in this encounter Results * Multiple labs (03/20/2023 3:24 PM EST) us Scanning Provider External DC IMAGING Final Result MANUALLY TRANSCRIBED RESULTS documented in this encounter Visit Diagnoses Not on filedocumented in this encounter Additional Health Concerns Assessment Noted Time PHQ-9 Depression Total Score: 0 03/30/19 24 8:30 AM EST documented as of this encounter Care Teams Mfts Relationship Specialty Start Date End Date Carson Sullivan DO [address] [place] [address] PCP - General Family Medicine 02/14/17 documented as of this encounter
--- OUTSIDE RECORDS SUMMARY | 2024-10-29 13:04 | XMS_ITS | Encounter Summary ---
Author Organization [facility] Address [facility] [id number] [address] [place] [address] Care Team Providers Care Spray Mixer Name Role Phone Carson Sullivan DO Primary Care Provider Encounter Details Date Type Department Care Team (Late st Contact Info) Description 04/11/2023 Orders Only [facility] Internal Medicine - Family Medicine [address] [place] [address] Lian Zambrano, INTERNET SALES ASSOCIATE-OUTDOOR FITNESS TRAINER [address] [facility] [place] [address] Chronic pain of both shoulders Social History Tobacco Use Types Packs/Day Years [...] often do you attend chur ch or adventist services? More than 4 times per year 08/02/2022 Do you belong to any clubs o r organizations such as cheondoism groups, unions, fraternal or athletic groups, or [...] Answer Date Recorded Total Score 0 03/30/2023 [facility]at ional Health - Occupational [...] Internal Medicine - Family Medicine [address] [place] [address] Carson Sullivan, DO [address] [facility], [place] [address] 10/14/2025 1:00 PM EDT Office Visit [facility] Internal Medicine - Family Medicine [address] [place] [address] documented as of this encounter Procedures Procedure Name Priority Date/Time Associated Diagnosis Comments XR SHOULDER LT MIN 2 VWS Routine 04/10/2023 Chronic pain of both shoulders XR SHOULDER RT MIN 2 VWS Routine 04/10/2023 Chronic pain of both shoulders documented in this encounter Results * X-ray shoulder left minimum 2 views (04/10/2023) Anatomical Region Laterality Modality MSK, Upper Extremities, Shoulder Left Computed Radiography Lian Zambrano APRN-OUTDOOR FITNESS TRAINER IMG DIAGNOSTIC IMAGING O RDERABLES Final Result * X-ray shoulder right minimum 2 views (04/10/2023) Anatomical Region Laterality Modality MSK, Upper Extremities, Shoulder Right Computed Radiography Lian Zambrano INTERNET SALES ASSOCIATE-OUTDOOR FITNESS TRAINER IMG DIAGNOSTIC IMAGING O RDERABLES Final Result documented in this encounter Visit Diagnoses Diagnosis Chronic pain of both shoulders documented in this encounter Additional Health Concerns Assessment Noted Time PHQ-9 Depression Total Score: 0 03/30/19 24 8:30 AM EST documented as of this encounter Care Teams Spray Mixer Relationship Specialty Start Date End Date Carson Sullivan DO [address] [facility] [place] [address] PCP - General Family Medicine 02/14/17 documented as of this encounter
--- OUTSIDE RECORDS SUMMARY | 2024-10-29 13:04 | XMS_ITS | Encounter Summary ---
Author Organization [employer] [facility] Address [facility] [id number] [address] [place] [address] Care Team Providers Care Lead Driver Name Role Phone Carson Sullivan DO Primary Care Provider + [phone] Reason for Visit * Reason Onset Date Comments Med Refill 04/04/2023 Encounter Details Date Type Department Care Team (Late st Contact Info) Description 04/04/2023 Refill [facility] Internal Medicine - Family Medicine [address] [place] [phone] JeremyTrixie tadeo, DIRECTOR OF RELIGIOUS LIFE Lumbosacral spondylosis without myelopathy Social History Tobacco [...] often do you attend chur ch or jainism services? More than 4 times per year 08/02/2022 Do you belong to any clubs o r organizations such as zoroastrianism groups, unions, fraternal or athletic groups, or [...] Answer Date Recorded Total Score 0 03/30/2023 [facility] Occupat ional Health - Occupational Stress [...] Recorded Do you need help finding a [facility] career center and/or a training program? [...] encounter Miscellaneous Notes * Telephone Encounter - NIRANJAN Rodriguez - 04/04/2023 8:50 AM EST This has a scheduled refill for 2/3 which is when she is due - I've sent it to be filled at this time documented in this encounter Plan of Treatment Upcoming Encounters Date Type Department Care Team (Late st Contact Info) Description 12/06/2024 11:15 AM EDT Office Visit [facility] Medicine - Family Medicine [address] [place] [address] Carson Sullivan DO [address], [facility] [place] [address] 10/14/2025 1:00 PM EDT Office Visit [facility] Medicine - Family Medicine [address] [place] [address] documented as of this encounter Visit Diagnoses Diagnosis Lumbosacral spondylosis without myelopathy documented in this encounter Additional Health Concerns Assessment Noted Time PHQ-9 Depression Total Score: 0 03/30/19 24 8:30 AM EST documented as of this encounter Care Teams Lead Driver Relationship Specialty Start Date End Date Carson Sullivan DO [address], [place] [address] PCP - General Family Medicine 02/14/17 documented as of this encounter
--- OUTSIDE RECORDS SUMMARY | 2024-10-29 13:04 | XMS_ITS | Encounter Summary ---
Author Organization [facility] Address [facility] [id number] [address] [place] [address] Care Team Providers Care Delivery Associate Name Role Phone Carson Sullivan DO Primary Care Provider [phone] Encounter Details Date Type Department Care Team (Late st Contact Info) Description 04/03/2023 Orders Only [facility] Internal Medicine - Family Medicine [address] [place] [phone] External, Scanning Provider Social History Tobacco Use [...] often do you attend chur ch or samaritan services? More than 4 times per year 08/02/2022 Do you belong to any clubs o r organizations such as amish groups, unions, fraternal or athletic groups, or [...] Answer Date Recorded Total Score 0 03/30/2023 [facility] Occupat ional Health - Occupational Stress [...] Do you need help finding a l al career center and/or a training program? No [...] - Family Medicine [address] [place] [address] Carson Sullivan DO [address], [place] [address] 10/14/2025 1:00 PM EDT Office Visit [facility] - Family Medicine [address] [place] [address] documented as of this encounter Visit Diagnoses Not on filedocumented in this encounter Additional Health Concerns Assessment Noted Time PHQ-9 Depression Total Score: 0 03/30/19 24 8:30 AM EST documented as of this encounter Care Teams Delivery Associate Relationship Specialty Start Date End Date Carson Sullivan DO [address], [place] [address] PCP - General Family Medicine 02/14/17 documented as of this encounter
--- OUTSIDE RECORDS SUMMARY | 2024-10-29 13:04 | XMS_ITS | Encounter Summary ---
Author Organization [facility] Address [id number] [address] [place] [address] Care Team Providers Care Chief Credit Officer Name Role Phone Carson Sullivan DO Primary Care Provider Encounter Details Date Type Department Care Team (Late st Contact Info) Description 05/12/2023 Orders Only [facility] Internal Medicine - Family Medicine [address] [place] [address] Lian Zambrano, TRACK PATROL-BUILDING CONSULTANT [address] [facility] [place] [address] Chronic pain of both shoulders Social History [...] often do you attend chur ch or buddhist services? More than 4 times per year [...] Answer Date Recorded Total Score 0 04/28/2023 [facility] Occupat ional Health - Occupational [...] Internal Medicine - Family Medicine [address] [place] [address] Carson Sullivan, DO [address] [facility], [place] [address] 10/14/2025 1:00 PM EDT [facility] - Family Medicine [address] [place] [address] documented as of this encounter Procedures Procedure Name Priority Date/Time Associated Diagnosis Comments AMB REFERRAL TO ORTHOPEDIC SURGERY Routine 2023 12:42 PM EST Chronic pain of both shoulders documented in this encounter Results * Ambulatory referral to Orthopedic Surgery ([facility]) (2023 12:42 PM EST) Lian Zambrano APRN-ADITYA OUTPATIENT REFERRAL [facility] Final Result MANUALLY TRANSCRIBED RESULTS documented in this encounter Visit Diagnoses Diagnosis Chronic pain of both shoulders documented in this encounter Additional Health Concerns Assessment Noted Time PHQ-9 Depression Total Score: 0 04/28/19 24 10:01 AM EST documented as of this encounter Care Teams Chief Credit Officer Relationship Specialty Start Date End Date Laurie Carson Luciano DO [address], [place] [address] PCP - General Family Medicine 02/14/17 documented as of this encounter
--- OUTSIDE RECORDS SUMMARY | 2024-10-29 13:04 | XMS_ITS | Encounter Summary ---
Author Organization [facility] Address [facility] [id number] [address] [place] [address] Care Team Providers Care Penetration Tester Name Role Phone Carson Sullivan DO Primary Care Provider [phone] Encounter Details Date Type Department Care Team (Late st Contact Info) Description 02/16/2023 Telephone [facility] Internal Medicine - Family Medicine [address] [place] [address] Lian Zambrano, ORNAMENTAL BRICK INSTALLER-BUSINESS SERVICES ASSISTANT [address] [place] [address] Social History Tobacco Use Types Packs/Day Years [...] How often do you attend chur or jehovah's witness services? More than 4 times per year 08/02/2022 Do you belong to any clubs o r organizations such as taoist groups, unions, fraternal or athletic groups, or [...] 07/18/2022 PHQ-2 Answer Date Recorded Total Score 4 02/09/2023 [facility]at ional Health - Occupational Stress [...] got money to buy more. Never True 02/09/2023 Within the past 12 months th e food we bought just didn't last and we didn't have money to get more. Never True 02/09/2023 Purpose - Life Answer Date Recorded I [...] * Telephone Encounter - Do Ryan - 02/16/2023 3:39 PM EST Patient called and said she is still not feeling better she finsiher her medications and was wondering if you wanted to see her again or if you could send something else in for her neck pain, she said its coming back worse * Telephone Encounter - NIRANJAN Rodriguez - 02/16/2023 3:39 PM EST Would she like to see pain management for possible injections to help with pain? * Telephone Encounter - Do Ryan - 02/16/2023 3:39 PM EST She does not want to do injections she said that she has tried them before and they did not help. She wants to know if we could try PT first? * Telephone Encounter - NIRANJAN Rodriguez - 02/16/2023 3:39 PM EST I already put an order in for physical therapy that she can set up- [facility] please give her the number * Telephone Encounter - Do Connor - 02/16/2023 3:39 PM EST NOTIFIED documented in this encounter Plan of Treatment Upcoming Encounters Date Type Department Care Team (Late st Contact Info) Description 12/06/2024 11:15 AM EDT Office Visit [facility] Internal Medicine - Family Medicine [address] [place] [address] Carson Sullivan DO [address], [place] [address] 10/14/2025 1:00 PM EDT Office Visit [facility] Medicine - Family Medicine [address] [place] [address] documented as of this encounter Visit Diagnoses Not on filedocumented in this encounter Additional Health Concerns Assessment Noted Time PHQ-9 Depression Total Score: 4 02/10/20 23 4:39 PM EST documented as of this encounter Care Teams Penetration Tester Relationship Specialty Start Date End Date Carson Sullivan DO [address], [place] [address] PCP - General Family Medicine 02/14/17 documented as of this encounter
--- OUTSIDE RECORDS SUMMARY | 2024-10-29 13:04 | XMS_ITS | Encounter Summary ---
Author Organization [facility] Address [facility] [id number] [address] [place] [address] Care Team Providers Care Router Operator Pin Name Role Phone Carson Sullivan DO Primary Care Provider Encounter Details Date Type Department Care Team (Late st Contact Info) Description 02/07/2023 Orders Only [facility] Internal Medicine - Family Medicine [address] [place] [address] Carson Sullivan DO [address], [place] [address] Social History Tobacco Use Types Packs/Day Years [...] often do you attend chur ch or mandaen services? More than 4 times per year 08/02/2022 Do you belong to any clubs o r organizations such as judaism groups, unions, fraternal or athletic groups, or [...] Answer Date Recorded Total Score 4 02/09/2023 [facility] of Occupat ional Health - Occupational Stress [...] - Family Medicine [address] [place] [address] Carson Sullivan DO [address] [facility] [place] [address] 10/14/2025 1:00 PM EDT Office Visit [facility] Medicine - Family Medicine [address] [place] [address] documented as of this encounter Visit Diagnoses Not on filedocumented in this encounter Additional Health Concerns Assessment Noted Time PHQ-9 Depression Total Score: 0 10/20/19 23 9:40 AM EDT documented as of this encounter Care Teams Router Operator Pin Relationship Specialty Start Date End Date Carson Sullivan DO [address] [facility] [place] [address] PCP - General Family Medicine 02/14/17 documented as of this encounter
--- OUTSIDE RECORDS SUMMARY | 2024-10-29 13:16 | XMS_ITS | CCD ---
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 Name Role Phone Bri Davis Unavailable NEAL, DR CARSON Luciano Admitting Unavailable FURLONG, DR CARSON Luciano Attending Unavailable FURLONG, DR CARSON Luciano Consulting Unavailable FURLONG, DR CARSON Luciano Primary Care Unavailable BRI DAVIS Admitting Unavailable JOBY POLO Consulting Unavailable FURLONG, DR CARSON Luciano Primary Care Unavailable BAKLESLIESBRI Attending Unavailable BAKLESILESBRI Consulting Unavailable JEREMIESBRI Consulting Unavailable MISC, DR BANKS Admitting Unavailable FURLONG, DR CARSON Luciano Primary Care Unavailable MISC, DR BANKS Attending Unavailable SABRINA MANUEL Attending Unavailable SABRINA MANUEL Admitting Unavailable SABRINA MANUEL Consulting Unavailable FURLOPAN, DR CARSON Luciano Primary Care Unavailable SABRINA MANUEL Admitting Unavailable SABRINA MANUEL Attending Unavailable LESLIENG, DR CARSON Luciano Consulting Unavailable FURLONG, DR CARSON Luciano Primary Care Unavailable SABRINA MANUEL Consulting Unavailable KALYANLONG, DR CARSON Luciano Admitting Unavailable FURLONG, DR CARSON Luciano Attending Unavailable FURLONG, DR CARSON Luciano Consulting Unavailable FURLONG, DR CARSON Luciano Primary Care Unavailable Unavailable Primary Care Provider UnavailLIAN Almonte Referring Unavailable CARSON SULLIVAN Primary Care Unavailable LIAN DAN Referring Unavailable CARSON SULLIVAN Primary Care Unavailable Aden Baca Admitting Unavailable Aden Baca Attending Unavailable Carson Sullivan Primary Care Unavailable YULIA HERNÁNDEZ Attending Unavailable YULIA HERNÁNDEZ Attending Unavailable YULIA HERNÁNDEZ Attending Unavailable YULIA HERNÁNDEZ Attending Unavailable Vinicio CANADA, Diamond Temple Attending Unavailable Vinicio CANADA, Diamond Temple Attending Unavailable Furlong DO, Carson G Primary Care Provider Furlong DO, Carson G Primary Care Provider [phone] FURLONG, CARSON G Referring Unavailable FURLONG, CARSON [...] hydroCHLOROthiazide; Translations: [HYDROCHLOROTHIAZIDE] Drug Allergy 023 Itching [facility] (1 source) Sulfonamides (Antibiotic) Drug allergy (disorder) [facility] (3 sources) HMG-CoA reductase inhibitor Drug Allergy 024 [facility] (3 sources) hydroCHLOROthiazide Drug Allergy Itching [facility] (6 sources) nickel sulfate; Translations: [NICKEL] Drug Allergy 023 Rash [facility] (20 sources) Sulfonamides (Antibiotic) Drug Intolerance [facility] ([facility]) Hmg-Coa Reductase Inhibitors (Statins); Translations: [OANGTEC-NUH-LNN REDUCTASE INHIBITORS] Propensity to adverse reactions to drug (disorder) 023 pain [facility] (3 sources) Sulfonamides (Antibiotic); Translations: [SULFA (SULFONAMIDE ANTIBIOTICS)] Propensity to adverse reactions to drug (disorder) [facility] (1 source) hydroCHLOROthiazide Drug Allergy [facility] (17 sources) DULoxetine; Translations: [DULOXETINE] Drug Allergy Other (See Comments) [facility] (20 sources) nickel [facility] Medications Current Medications Medication Drug Class(es) [...] Active alendronic acid 70 mg oral tablet (12 sources) Bisphosphonate Start: 04-09-2024 take 1 tablet [...] Dihydropyridine Calcium Channel Akhil Start: 12-21-2022 End: 07-01-2024 take 1 tablet by mouth once daily amLODIPine (NORVASC) 10 mg tablet TAKE 1 TABLET BY MOUTH DAILY 90 tablet 1 07/01/2024 Active ascorbic acid 1000 mg extended release oral tablet (20 sources) Vitamin C Start: 02-07-2018 take 1 tablet by mouth once daily Ascorbic Acid (Vitamin C) (Vitamin C) 1,000 mg Tablet Extended Release Active 1000 MG PO Daily February 07, 2018 12:00am ascorbic acid, v itamin C, (VITAMIN C) 1000 mg tablet Active Bioflavonoid Pro ducts (Vitamin C) chewable tablet as directed Orally 0 Active Vitamin C - as d irected Orally Active aspirin 81 mg delayed release oral tablet (20 sources) Platelet Aggregation Inhibitor, Nonsteroidal Anti-inflammatory Drug Start: 02-07-2018 Aspirin (Lorie Lo w Dose Aspirin) 81 mg Tablet,Delayed Release (Dr/Ec) Active 81 MG PO Daily February 07, 2018 12:00am take 1 tablet by [facility] every twenty-four hours Aspirin 81 MG 1 tablet Orally Once a day for 30 day(s) Active B Elronhn-Qzssnt-DF (Super B-Complex) tablet (3 sources) B Complex-Biotin [...] TAB PO Daily February 07, 2018 12:00am pwxtjdp-heyxakvdq-mcwd 333-133-5 MG per tablet (3 sources) calcium-magnesiu [...] 07, 2018 12:00am take 1 capsule by [facility] every twenty-four hours Vitamin D3 50 MCG [...] /bor/om3,6,9 5 (OMEGA 3-6-9 FATTY ACIDS ORAL) Active fsh/flx/prim/cur /bor/om3,6,9 5 (OMEGA 3-6-9 FATTY ACIDS ORAL) as directed Orally Active fsh/flx/prim/cur /bor/om3,6,9 5 (OMEGA 3-6-9 FATTY ACIDS ORAL) as directed Orally 0 Active 12 hr guaiFENesin 600 mg extended release oral tablet (1 source) take 1 tablet by mouth every twelve hours as needed guaiFENesin (MUCINEX) 600 mg tablet extended release 12hr Take 1 tablet (600 mg total) by mouth every 12 (twelve) hours as needed. Active Iron (1 source) take 1 tablet by mouth once daily Iron 28 MG 1 tablet Orally Once a day for 30 day(s) Active lactobacillus acidophilus [id number] unt oral capsule (20 sources) Lactobacillus acidophilus (PROBIOTIC) 10 billion cell capsule Take 1 capsule by mouth See Admin Instructions. Active latanoprost 0.05 mg/ml ophthalmic solution (1 source) Prostaglandin Analog Start: 10-02-19 25 take 1 drop(s) into the eye(s) once daily latanoprost (XALATAN) 0.005 % ophthalmic solution Administer 1 drop to both eyes nightly. 10/01/2024 Active levothyroxine sodium 0.112 mg oral tablet (20 sources) l-Thyroxine Start: 02-08-20 18 End: 07-02-19 25 take 1 tablet by mouth in the morning levothyroxine (SYNTHROID, LEVOTHROID) 112 MCG tablet TAKE 1 TABLET BY MOUTH IN THE MORNING 90 tablet 1 07/01/2024 Active take 1 tablet by nabeel th once daily in the morning Levothyroxine Sodium 112 MCG 1 tablet on an empty stomach in the morning Orally Once a day for 30 day(s) Active lidocaine 0.05 mg/mg medicated patch (10 sources) Antiarrhythmic, Amide Local Anesthetic Start: 03-12-2024 [...] Angiotensin Converting Enzyme Inhibitor Start: 09-29-2022 End: 09-27-2024 take 1 tablet by mouth once daily lisinopriL (PRINIVIL,ZESTRIL) 40 mg tablet TAKE 1 TABLET BY MOUTH DAILY 90 tablet 2 09/27/2024 Active loratadine 10 mg oral tablet (20 [...] TAB PO Daily April 09, 2024 12:00am sc-dij-nuoio-calcium carb-K1 400 mcg-500 mg calcium-20 mcg tablet (20 sources) Start: 05-02-2022 take 1 tablet by mouth once in the morning kz-hck-rvuhz-calcium carb-K1 400 mcg-500 mg calcium-20 mcg tablet Take 1 tablet by mouth in the morning. 90 tablet 05/02/2022 Active Start: 05-02-2022 take 1 tablet by nabeel th once in the morning zg-hna-wmziv-calcium carb-K1 400 mcg-500 mg calcium-20 mcg tablet Take 1 tablet by mouth in the morning. 90 tablet 0 05/02/2022 Active naloxone hydrochloride 40 mg/ml nasal spray (16 sources) Opioid Antagonist naloxone (NARC AN) 4 mg/actuation spray,non-aerosol nasal spray Administer 1 spray (4 mg total) into each nostril as needed. 1 spray Q2-3 minutes as needed Active naloxone (NARCAN) 4 mg/actuation spray,non-aerosol nasal spray (20 sources) naloxone (NARCAN ) 4 mg/actuation spray,non-aerosol nasal spray Administer 1 spray (4 mg total) into each nostril as needed. 1 spray Q2-3 minutes as needed Active Conetoe 3 1000 MG (4 sources) take 1 capsule by mouth once daily Conetoe 3 1000 MG 1 capsule Orally Once a day for 30 day(s) Active omega-3 acid ethyl esters (fdc) 1000 mg oral capsule (2 sources) Start: 02-08-20 18 take 1 capsule by mouth once daily Conetoe-3 Acid Ethyl Esters 1 gram Capsule Active 1000 MG PO Daily February 07, 2018 12:00am omeprazole 20 mg delayed release oral capsule (20 sources) Proton Pump Inhibitor Start: 06-07-19 25 take 1 capsule by mouth once daily before breakfast, then take 1 capsule by mouth once daily omeprazole (PriLOSEC) 20 mg capsule Take 1 capsule (20 mg total) by mouth every morning before breakfast. TAKE 1 CAPSULE DAILY 06/06/2024 Active Start: 02-07-2018 End: 06-06-2024 omeprazole (PriLOSEC) 20 mg capsule TAKE 1 CAPSULE TWICE DAILY 180 capsule 3 08/21/2023 06/06/2024 Discontinued take 1 tablet by nabeel th every [...] Active oxyCODONE hydrochloride 5 mg oral tablet (20 sources) Opioid Agonist Start: 12-26-2023 oxyCODONE (SUDEEP ICODONE) 5 mg immediate release tablet 12/26/2023 Active Start: 02-15-2018 End: 2023 take [...] hrs 15 mg Not-Taking polyethylene glycol 3350 01606 mg powder for oral solution (20 sources) [...] days pseudoephedrine hydrochloride 30 mg oral tablet (15 sources) alpha-Adrenergic Agonist pseudoe phedrine (SUDAFED) 30 mg tablet Active take 2 tablets by mo ut every six hours as needed pseudoephedrine (SUDAFED) 30 mg tablet 2 tablets as needed Orally every 6 hrs Active rosuvastatin calcium 5 mg oral tablet (15 sources) HMG-CoA Reductase Inhibitor Start: 12-28-2023 End: 06-06-2024 take 1 tablet by mouth once daily rosuvastatin (CRESTOR) 5 mg tablet Take 1 tablet (5 mg total) by mouth nightly. 30 tablet 11 06/07/2024 Active saccharomyces boulardii 250 mg oral capsule (6 sources) Start: 10-24-2023 take 1 capsule by mouth once daily Saccharomyces Boulardii 250 mg capsule Active 250 MG PO Daily October 23, 2023 11:00pm take 1 capsule by mo [facility] every twenty-four hours Probiotic [...] Not-Taking traZODone hydrochloride 100 mg oral tablet (17 sources) Serotonin Reuptake Inhibitor Start: 12-28-2023 End: [...] Discontinued (Therapy completed) take 1 capsule by [facility] three times daily as needed Benzonatate 200 MG 1 capsule Orally Thre e times a day as needed for 30 days Not-Taking cephalexin 500 mg oral capsule (2 sources) Cephalosporin Antibacterial Start: 02-15-2018 End: 2023 take 1 capsule by mouth every eight hours Cephalexin (Keflex) 500 mg capsule Discontinued 500 MG PO Q8H February 15, 2018 12:00am 2023 9:10am Co [...] times daily as needed for back spasms February 15, 2018 12:00am 2023 9:11am docusate [...] and Norepinephrine Reuptake Inhibitor Start: 09-26-2023 End: 04-09-2024 take 1 capsule by mouth once daily [...] PO Three times daily February 07, 2018 12:00February 15, 2018 7:52am MS Contin 30 MG (1 source) Start: 02-19-2018 take 1 tablet by mouth every twelve hours MS Contin 30 MG 1 tablet Orally every 12 hrs for 7 days *please review for potential _update for e-prescription and drug interaction check* Feb, Not-Taking Fbshpisk-Dpr-Thjv-Fa -Vit K-Lut (Centrum Silver Women) 8 mg iron-400 mcg-300 mcg Tablet (2 sources) Start: 02-07-2018 End: 10-24-2023 take 1 tablet by mouth once daily Zkkdtukk-Omm-Jhcw-Fa-Vit K-Lut (Centrum Silver Women) 8 mg iron-400 mcg-300 mcg Tablet Discontinued 1 TAB PO Daily February 07, 2018 12:00am October 24, 2023 9:57am Start: 02-07-2018 End: 10-24-2023 take 1 tablet by mouth once daily Xbikdsnq-Nmf-Ywdr-Fa-Vit K-Lut (Centrum Silver Women) 8 mg iron-400 [...] food Orally BID 06/28/2023 Discontinued (Therapy completed) 24 hr nicotine 0.875 mg/hr transdermal system (20 sources) Cholinergic Nicotinic Agonist Start: 04-28-2023 End: 06-06-2024 apply 1 dose transdermal route once daily nicotine (NICODERM CQ) 21 mg/[address] 1 patch on the skin daily. 30 patch 1 04/28/2023 06/06/2024 Discontinued oh5-wrc-pdz-fish- ojld-vqe-hadx (MEGARED ADV TOTAL BODY REFRESH) 134-121-569-30 mg capsule (20 sources) End: 06-06-2024 fm7-zjq-sxm-fish-k efu-xro-fola (MEGARED ADV TOTAL BODY REFRESH) 108-750-339-30 mg capsule Take by mouth. 06/06/2024 Discontinued (Dose adjustment) xj9-xan-ayk-fish -mnaq-oae-olcp (MEGARED ADV TOTAL BODY REFRESH) [phone] mg capsule Take by mouth. Active potassium 99 mg extended release oral [...] capsule by mo uth once daily Vitamin D3 2000 UNIT 1 capsule Orally Once a day for 30 day(s) *please review for potential _update for e-prescription and drug interaction check* Not-Taking Vitamin E 400 UNIT (1 source) take 1 capsule by mo uth once daily Vitamin E 400 UNIT 1 capsule Orally Once a day for 30 day(s) Not-Taking Problems Active Problems Problem Classification Problem Date Documented Date Episodic/Chronic Anxiety disorders (20 sources) Anxiety; Translations: [...] kidney disease, stage 4 (severe)] Onset: 06-08-2022 Resolved: 06-06-2024 Chronic Chronic kidney disease (4 sources) Chronic kidney disease; Translations: [Chronic kidney disease, stage 3a] Onset: 06-28-2023 Deficiency and other anemia (5 sources) Anemia, unspecified; Translations: [Anemia, unspecified] Episodic Deficiency and other anemia (2 sources) Anemia; Translations: [Anemia, unspecified] 10-21-2023 Episodic Disorders of lipid metabolism (20 sources) Hyperlipidemia, unspecified; Translations: [Pure hypercholesterolemia, unspecified] Onset: 10-11-2021 Chronic Esophageal disorders (20 [...] Onset: 03-31-2022 Resolved: 10-19-2022 Chronic Nutritional deficiencies (20 sources) Vitamin D deficiency; [...] syndrome; Translations: [Chronic pain syndrome] Chronic Other nutritional; endocrine; and metabolic disorders (1 source) Body mass index 25-29 - overweight; Translations: [Overweight] 06-06-2024 Episodic Other screening for suspected conditions (not mental disorders or infectious disease) (3 sources) Patient encounter status; Translations: [Encounter for screening for malignant neoplasm of colon] 06-03-2023 Episodic Other skin disorders (2 sources) Actinic keratosis; Translations: [Actinic keratosis] 04-07-2023 Episodic Other upper respiratory disease (20 sources) Allergic rhinitis; Translations: [Allergic rhinitis, unspecified] Onset: 09-21-2020 11-16-2021 Chronic Spondylosis; intervertebral disc disorders; other [...] shoulder] Onset: 2023 Unclassified (1 source) controlled Onset: 12-28-2023 Past or Other Problems Problem Classification Problem [...] [Hypo-osmolality and hyponatremia] Onset: 11-16-2021 10-24-2023 Episodic Immunizations and screening for infectious disease (2 sources) Needs influenza immunization; Translations: [Encounter for immunization] Onset: 12-28-2023 12-28-2023 Episodic Mood disorders (20 sources) Mood disorders Onset: 12-28-2023 Resolved: 10-10-2024 12-28-2023 Other bone disease and musculoskeletal deformities [...] 11-16-2021 11-16-2021 Episodic Other non-traumatic joint disorders (1 source) Bilateral chronic pain of upper limbs; Translations: [Pain in right shoulder] 03-30-2023 Episodic Other nutritional; endocrine; and metabolic disorders (20 sources) Overweight; Translations: [Overweight] Onset: 06-15-2016 Resolved: 07-18-2022 07-18-2022 Episodic Peripheral and visceral atherosclerosis (20 sources) Peripheral vascular disease; Translations: [Peripheral vascular disease, unspecified] Onset: 02-01-2021 Resolved: 06-06-2024 11-16-2021 Chronic Residual codes; unclassified (1 source) Acquired absence of both cervix and uterus; Translations: [ACQUIRED ABSENCE BOTH CERVIX AND UTERUS] Onset: 10-11-2021 Episodic Residual codes; unclassified (20 sources) Disturbance in sleep behavior; Translations: [Sleep disorder, unspecified] Onset: 06-28-2023 06-28-2023 Episodic Residual codes; unclassified (1 source) Asymptomatic menopausal state; Translations: [Asymptomatic menopausal state] Onset: 02-22-2024 Episodic Residual codes; unclassified (1 source) Sleep disorder, unspecified; Translations: [Sleep disorder, unspecified] Onset: 06-28-2023 Episodic Spondylosis; intervertebral disc disorders; other back problems (20 sources) Cervicalgia; Translations: [Spinal stenosis of lumbar region] Onset: 09-14-2017 02-15-2023 Episodic Comment on above: Problem List clean-u p per request of Phys. 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 [place] [address] ALP [Catalytic activity/Vol] 78 U/L Normal 39-130 [facility] Comment on above: Performed By: #### Arlyn MEJIA, 45599-5, THYR #### [facility] ([id number]) [address] [place] [address] ALT [Catalytic activity/Vol] 12 U/L Normal 0-31 [facility] Comment on above: Performed By: #### Arlyn MEJIA, 60374-5, THYR #### [facility] ([id number]) [address] [place] [address] Anion gap [Moles/Vol] 13 mmol/L Normal 5-15 [facility] Comment on above: Performed By: #### Arlyn MEJIA, 99530-6, THYR #### [facility] ([id number]) [address], [address] [place] [address] AST [Catalytic activity/Vol] 11 U/L Normal 0-41 [facility] Comment on above: Performed By: #### C ROBERTO, 75136-4, THYR #### [facility] ([id number]) [address], [address] [place] [address] Bilirubin [Mass/Vol] 0.3 mg/dL Normal 0.3-1.2 [facility] Comment on above: Performed By: #### C ROBERTO 73497-6, THYR #### [facility] ([id number]) [address], [address] [place] [address] Calcium [Mass/Vol] 9.6 mg/dL Normal 8.5-10.5 [facility] Comment on above: Performed By: #### C ROBERTO 96209-9, THYR #### [facility] ([id number]) [address], [address] [place] [address] Chloride [Moles/Vol] 102 mmol/L Normal 98-109 [facility] Comment on above: Performed By: #### C ROBERTO, 21435-0, THYR #### [facility] ([id number]) [address], [address] [place] [address] CO2 [Moles/Vol] 20 mmol/L Low 22-32 [facility] Comment on above: Performed By: #### C ROBERTO, 30900-0, THYR #### [facility] ([id number]) [address], [address] [place] [address] Creatinine [Mass/Vol] 1.38 mg/dL High 0.40-1.00 [facility] Comment on above: Result Comment: METH OD TRACEABLE TO IDMS STANDARD Performed By: #### C Manuel MEJIA31-1, THYR #### [facility] ([id number]) [address], [address] [place] [address] GFR/1.73 sq M.predicted rosa m g non-blacks MDRD (S/P/Bld) [Vol rate/Area] 39 mL/min/{1.73_m2} Low >59 [facility] Comment on above: Result Comment: Reported eGFR is based on the CKD-EPI 2020 equation that does not use a race coefficient. Performed By: #### Arlyn MEJIA, 12026-0, THYR #### [facility] ([id number]) [address], [address] [place] [address] Glucose [Mass/Vol] 93 mg/dL Normal 65-99 [facility] Comment on above: Performed By: #### Arlyn MEJIA 34306-4, THYR #### [facility] ([id number]) [address], [address] [place] [address] Potassium [Moles/Vol] 4.7 mmol/L Normal 3.5-5.0 [facility] Comment on above: Performed By: #### Arlyn MEJIA 57204-1, THYR #### [facility] ([id number]) [address], [address] [place] [address] Protein [Mass/Vol] 7.3 g/dL Normal 6.0-8.0 [facility] Comment on above: Performed By: #### Arlyn MEJIA 10101-8, THYR #### [facility] ([id number]) [address], [address] [place] [address] Sodium [Moles/Vol] 135 mmol/L Normal 134-146 [facility] Comment on above: Performed By: #### Arlyn MEJIA, 67676-2, THYR #### [facility] ([id number]) [address], [address] [place] [address] Urea nitrogen [Mass/Vol] 19 mg/dL Normal 5-27 [facility] Comment on above: Performed By: #### Arlyn MEJIA, 33635-5, THYR #### [facility] ([id number]) [address], [address] [place] [address] Lipid 1996 panelon 5 Cholesterol [Mass/Vol] 229 mg/dL High 150-200 [facility] Comment on above: Performed By: #### Arlyn MEJIA, 89213-9, THYR #### [facility] ([id number]) [address], [address] [place] [address] Cholesterol in HDL [Mass/Vol] 89 mg/dL Normal >39 [facility] Comment on above: Result Comment: HDL <40 mg/dL - High Risk HDL > or = 40mg/dL- Desirable HDL >60 mg/dL - Negative Risk Performed By: #### Arlyn MEJIA, 45906-0, THYR #### [facility] ([id number]) [address], [address] [place] [address] Cholesterol in LDL [Mass/Vol] 121 mg/dL Normal <130 [facility] Comment on above: Result Comment: LDL <100 mg/dL - Desirable LDL >160 mg/dL - High Risk Performed By: #### Arlyn MEJIA, 71063-3, THYR #### [facility] ([id number]) [address], [address] [place] [address] Cholesterol in VLDL [Mass/Vol] 19 mg/dL Normal 0-30 [facility] Comment on above: Performed By: #### Arlyn MEJIA, 09932-9, THYR #### [facility] ([id number]) [address], [address] [place] [address] CHOLESTEROL:HDL 2.6 Normal 1.0-5.0 [facility] Comment on above: Performed By: #### C ROBERTO, 25663-5, THYR #### [facility] ([id number]) [address], [address] [place] [address] Triglyceride [Mass/Vol] 94 mg/dL Normal 27-150 [facility] Comment on above: Performed By: #### Arlyn MEJIA, 82248-4, THYR #### [facility] ([id number]) [address] [facility] [address] [place] [address] THYROID PROFILEon 06-06-2024 Free T4 [Mass/Vol] 1.00 ng/dL Normal 0.61-1.60 [facility] Comment on above: Performed By: #### Arlyn MEJIA, 10945-3, THYR #### [facility] ([id number]) [address], [address] [place] [address] TSH 1.75 uIU/mL Normal 0.49-4.67 [facility] Comment on above: Performed By: #### Arlyn MEJIA, 32232-6, THYR #### [facility] ([id number]) [address], [address] [address] Erythrocyte distribution wid th Auto (RBC) [Ratio]on 04-02-2024 Erythrocyte distribution wid th (RBC) [Ratio] Erythrocyte distribution width [Ratio] by Automated count 11.0-15.0 [facility] Estimated glomerular filtrat ion rate (GFR) non- Americanon 04-02-2024 GFR/1.73 sq M.predicted rosa m g non-blacks MDRD (S/P/Bld) [Vol rate/Area] Estimated glomerular filtration rate (GFR) non- Low >=60 mL/min/1.[address] [facility] Hematocrit Auto (Bld) [Volum e fraction]on 04-02-2024 Hematocrit (Bld) [Volume fraction] Hematocrit [Volume Fraction] of Blood by Automated count 36.0-48.0 [facility] Hemoglobin [Mass/volume] in Bloodon 04-02-2024 Hemoglobin (Bld) [Mass/Vol] Hemoglobin [Mass/volume] in Blood 12.0-16.0 [facility] Laboratory - Chemistry and C hemistry - challengeon 04-02-2024 Albumin [Mass/Vol] 3.8 g/dL 3.4-5.0 [facility] Calcium [Mass/Vol] 8.9 mg/dL 8.5-10.1 [facility] Chloride [Moles/Vol] 101 mmol/L 98-107 [facility] CO2 [Moles/Vol] 23.4 mmol/L 21.0-32.0 [facility] Creatinine [Mass/Vol] 1.31 mg/dL High 0.55-1.02 [facility] GFR/1.73 sq M.predicted MDRD (S/P/Bld) [Vol rate/Area] 48 mL/min/{1.73_m2} Low >=60 mL/min/1.[address] [facility] Glucose [Mass/Vol] 92 mg/dL 74-106 [facility] Magnesium [Mass/Vol] 2.1 mg/dL 1.8-2.4 [facility] Potassium [Moles/Vol] 4.3 mmol/L 3.5-5.1 [facility] Sodium [Moles/Vol] 132 mmol/L Low 136-145 [facility] Urate [Mass/Vol] 4.9 mg/dL 2.6-6.0 [facility] Urea nitrogen [Mass/Vol] 19.0 mg/dL High 7.0-18.0 [facility] Urea nitrogen/Creatinine [Ma ss ratio] 14.5 mg/mg [facility] Bilirubin Ql (U) Negative NEGATIVE [facility] Glucose (U) [Mass/Vol] Negative NEGATIVE [facility] Ketones Ql (U) Negative NEGATIVE [facility] pH (U) 6.0 [pH] 5.0-9.0 [facility] Sodium (U) [Moles/Vol] 72 mmol/L 30-90 [facility] Specific gravity (U) [Rel density] 1.015 1.005-1.[address] [facility] Urobilinogen Qn (U) 0.2 {Drew'U}/dL 0.2-1.0 [facility] Laboratory - Specimen inform ationon 04-02-2024 Appearance (U) CLEAR CLEAR [facility] Color (U) YELLOW YELLOW [facility] Laboratory - Urinalysison Leukocyte esterase Test stri p Ql (U) Negative NEGATIVE [facility] Nitrite Ql (U) Negative NEGATIVE [facility] Protein (U) [Mass/Vol] 12.3 mg/dL High <=11.[address] [facility] Protein Ql (U) Negative NEG/TRACE [facility] Leukocytes [#/volume] correc di for nucleated erythrocytes in Blood by Automated counon 04-02-2024 WBC corrected for nucl RBC A uto (Bld) [#/Vol] Leukocytes [#/volume] corrected for nucleated erythrocytes in Blood by Automated coun 4.0-11.0 [facility] MCH Auto (RBC) [Entitic mass ]on 04-02-2024 MCH (RBC) [Entitic mass] MCH [Entitic mass] by Automated count 26.7-34.0 [facility] MCHC Auto (RBC) [Mass/Vol]on 04-02-2024 MCHC (RBC) [Mass/Vol] MCHC [Mass/volume] by Automated count 29.9-35.2 [facility] MCV Auto (RBC) [Entitic vol] on 04-02-2024 MCV (RBC) [Entitic vol] MCV [Entitic volume] by Automated count 81.0-99.0 [facility] Microalbumin [Mass/volume] i n Urineon 04-02-2024 Albumin DL <= 20 mg/L (U) [Mass/Vol] Microalbumin [Mass/volume] in Urine <=30.0 [facility] No Panel Informationon 04-02 25-Hydroxy Vitamin D Total 41.1 ng/mL [facility] Comment on above: <20 ng/mL Vit D defi cient20-<30 ng/mL Vit D vrrzozzlhsoh44-912 ng/mL Vit D sufficient>100 ng/mL Potential Toxicity Parathyroid Hormone (Intact) 45 pg/mL 15-65 [facility] Comment on above: Performed at: CB - L pito [address] [id number] Director: Billy Patel PhD, Phone: [phone] Phosphorus Level 3.2 mg/dL 2.6-4.7 [facility] Urine Occult Blood Negative NEGATIVE [facility] Urine Osmolality 432 mOsmol/kg . [facility] Comment on above: 24 hr : 300 - 900 Ra ndom: 50 - 1400 After 12hr fluid restriction: >850Performed at: - [facility] [id number] Director: Rick Law MD, Phone: [phone] Urine Random Creatinine 76.79 mg/dL 20.0 0-300. 00 [facility] Platelet mean volume Auto (B ld) [Entitic vol]on 04-02-2024 Platelet mean volume (Bld) [Entitic vol] Platelet mean volume [Entitic volume] in Blood by Automated count 9.5-13.5 [facility] Platelets Auto (Bld) [#/Vol] on 04-02-2024 Platelets (Bld) [#/Vol] Platelets [#/volume] in Blood by Automated count 150-450 [facility] RBC Auto (Bld) [#/Vol]on RBC (Bld) [#/Vol] Erythrocytes [#/volume] in Blood by Automated count Low 4.20-5.40 [facility] Serum or plasma anion gap de terminationon 04-02-2024 Anion gap [Moles/Vol] Serum or plasma anion gap determination [facility] Urine protein/creatinine rat ioon 04-02-2024 Protein/Creatinine (U) [Ratio] Urine protein/creatinin e ratio [facility] Erythrocyte distribution wid th Auto (RBC) [Ratio]on 10-17-2023 Erythrocyte distribution wid th (RBC) [Ratio] 13.5 % 11.0-15.0 [facility] Estimated glomerular filtrat ion rate (GFR) non- Americanon 10-17-2023 GFR/1.73 sq M.predicted rosa m g non-blacks MDRD (S/P/Bld) [Vol rate/Area] 43 mL/min/{1.73_m2} Low >=60 [facility] Globulin Calc (S) [Mass/Vol] on 10-17-2023 Globulin (S) [Mass/Vol] 3.4 g/dL [facility] Hematocrit Auto (Bld) [Volum e fraction]on 10-17-2023 Hematocrit (Bld) [Volume fraction] 38.7 % 36.0-48.0 [facility] Hemoglobin [Mass/volume] in Bloodon 10-17-2023 Hemoglobin (Bld) [Mass/Vol] 12.8 g/dL 12.0-16. 0 [facility] Laboratory - Chemistry and C hemistry - challengeon 10-17-2023 Albumin [Mass/Vol] 4.0 g/dL 3.4-5.0 [facility] ALP [Catalytic activity/Vol] 94 U/L 46-116 [facility] ALT [Catalytic activity/Vol] 23 U/L 14-59 [facility] AST [Catalytic activity/Vol] 10 U/L Low 15-37 [facility] Bilirubin [Mass/Vol] 0.4 mg/dL 0.2-1.0 [facility] Calcium [Mass/Vol] 9.3 mg/dL 8.5-10.1 [facility] Chloride [Moles/Vol] 96 mmol/L Low 98-107 [facility] CO2 [Moles/Vol] 26.8 mmol/L 21.0-32.0 [facility] Creatinine [Mass/Vol] 1.21 mg/dL High 0.55-1.02 [facility] GFR/1.73 sq M.predicted MDRD (S/P/Bld) [Vol rate/Area] 52 mL/min/{1.73_m2} Low >=60 [facility] Glucose [Mass/Vol] 109 mg/dL High 74-106 [facility] Magnesium [Mass/Vol] 2.0 mg/dL 1.8-2.4 [facility] Potassium [Moles/Vol] 3.7 mmol/L 3.5-5.1 [facility] Protein [Mass/Vol] 7.4 g/dL 6.4-8.2 [facility] Sodium [Moles/Vol] 130 mmol/L Low 136-145 [facility] Urea nitrogen [Mass/Vol] 20.0 mg/dL High 7.0-18.0 [facility] Urea nitrogen/Creatinine [Ma ss ratio] 16.5 mg/mg [facility] Bilirubin Ql (U) Negative NEGATIVE [facility] Glucose (U) [Mass/Vol] Negative NEGATIVE [facility] Ketones Ql (U) TRACE mg/dL Abnormal NEGATIVE [facility] pH (U) 6.0 [pH] 5.0-9.0 [facility] Specific gravity (U) [Rel density] 1.015 1.005-1.[address] [facility] Urobilinogen Qn (U) 0.2 {Drew'U}/dL 0.2-1.0 [facility] Laboratory - Specimen inform ationon 10-17-2023 Appearance (U) SL CLOUDY CLEAR [facility] Color (U) YELLOW YELLOW [facility] Laboratory - Urinalysison Leukocyte esterase Test stri p Ql (U) Negative NEGATIVE [facility] Nitrite Ql (U) Negative NEGATIVE [facility] Protein (U) [Mass/Vol] 23.3 mg/dL High <=11.9 [facility] Protein Ql (U) Negative NEG/TRACE [facility] Leukocytes [#/volume] correc di for nucleated erythrocytes in Blood by Automated counon 10-17-2023 WBC corrected for nucl RBC A uto (Bld) [#/Vol] 6.7 10 3/uL 4.0-11.0 [facility] MCH Auto (RBC) [Entitic mass ]on 10-17-2023 MCH (RBC) [Entitic mass] 32.7 pg 26.7-34.0 [facility] MCHC Auto (RBC) [Mass/Vol]on 10-17-2023 MCHC (RBC) [Mass/Vol] 33.1 g/dL 29.9-35.2 [facility] MCV Auto (RBC) [Entitic vol] on 10-17-2023 MCV (RBC) [Entitic vol] 98.7 fL 81.0-99.0 [facility] No Panel Informationon 10-16 25-Hydroxy Vitamin D Total 47.1 ng/mL [facility] Comment on above: <20 ng/mL Vit D defi cient20-<30 ng/mL Vit D bptpklggagjp57-084 ng/mL Vit D sufficient>100 ng/mL Potential Toxicity Parathyroid Hormone (Intact) 24 pg/mL 15-65 [facility] Comment on above: Performed at: [facility] [employer] [place] [id number] Director: Billy Patel PhD, Phone: [phone] Urine Occult Blood Negative NEGATIVE [facility] Urine Random Creatinine 116.48 mg/dL 20.0 0-300. 00 [facility] Platelet mean volume Auto (B ld) [Entitic vol]on 10-17-2023 Platelet mean volume (Bld) [Entitic vol] 9.2 fL Low 9.5-13.5 [facility] Platelets Auto (Bld) [#/Vol] on 10-17-2023 Platelets (Bld) [#/Vol] 364 10 3/uL 150-450 [facility] RBC Auto (Bld) [#/Vol]on RBC (Bld) [#/Vol] 3.92 10 6/uL Low 4.20-5.40 [facility] Serum or plasma albumin/glob ulin mass ratioon 10-17-2023 Albumin/Globulin [Mass ratio] 1.2 {ratio} [facility] Serum or plasma anion gap de terminationon 10-17-2023 Anion gap [Moles/Vol] 10.9 mmol/L [facility] Urine protein/creatinine rat ioon 10-17-2023 Protein/Creatinine (U) [Ratio] 0.20 [facility] BASIC METABOLIC PANLon 06-27 Anion gap [Moles/Vol] 13 mmol/L Normal 5-15 [facility] Comment on above: Performed By: #### B MP, THYR #### [facility] ([id number]) [address], [address] [place] [address] Calcium [Mass/Vol] 9.9 mg/dL Normal 8.5-10.5 [facility] Comment on above: Performed By: #### B ROBERTO, THYR #### [facility] ([id number]) [address], [address] [place] [address] Chloride [Moles/Vol] 100 mmol/L Normal 98-109 [facility] Comment on above: Performed By: #### B ROBERTO, THYR #### [facility] ([id number]) [address], [address] [place] [address] CO2 [Moles/Vol] 23 mmol/L Normal 22-32 [facility] Comment on above: Performed By: #### B ROBERTO, THYR #### [facility] ([id number]) [address], [address] [place] [address] Creatinine [Mass/Vol] 1.20 mg/dL High 0.40-1.00 [facility] Comment on above: Result Comment: METH OD TRACEABLE TO IDMS STANDARD Performed By: #### B ROBERTO, THYR #### [facility] ([id number]) [address], [address] [place] [address] GFR/1.73 sq M.predicted rosa m g non-blacks MDRD (S/P/Bld) [Vol rate/Area] 47 mL/min/{1.73_m2} Low >59 [facility] Comment on above: Result Comment: Reported eGFR is based on the CKD-EPI 2020 equation that does not use a race coefficient. Performed By: #### B ROBERTO, THYR #### [facility] ([id number]) [address], [address] [place] [address] Glucose [Mass/Vol] 86 mg/dL Normal 65-99 [facility] Comment on above: Performed By: #### B ROBERTO, THYR #### [facility] ([id number]) [address], [address] [place] [address] Potassium [Moles/Vol] 4.3 mmol/L Normal 3.5-5.0 [facility] Comment on above: Performed By: #### B ROBERTO, THYR #### [facility] ([id number]) [address] [place] [address] Sodium [Moles/Vol] 136 mmol/L Normal 134-146 [facility] Comment on above: Performed By: #### B ROBERTO, THYR #### [facility] ([id number]) [address], [address] [place] [address] Urea nitrogen [Mass/Vol] 26 mg/dL Normal 5-27 [facility] Comment on above: Performed By: #### B ROBERTO, THYR #### [facility] ([id number]) [address], [address] [place] [address] Basic Metabolic Panelon 04-2 Anion gap [Moles/Vol] 13 mmol/L 5 - 15 mmol/L [facility] Calcium [Mass/Vol] 9.9 mg/dL 8.5 - 10. 5 mg/dL [facility] Chloride [Moles/Vol] 100 mmol/L 98 - 10 9 mmol/L [facility] CO2 [Moles/Vol] 23 mmol/L 22 - 32 mmol/L [facility] Creatinine [Mass/Vol] 1.20 mg/dL High 0.40 - 1.00 mg/dL [facility] Comment on above: METHOD TRACEABLE TO IDMS STANDARD eGFR (CKD-EPI)non-race dependent 47 Low - PINF [facility] Comment on above: Reported eGFR is based on the CKD-EPI 2020 equation that does not use a race coefficient. Glucose [Mass/Vol] 86 mg/dL 65 - 99 mg/dL [facility] Interpretation and review of laboratory results Abnormal [facility] Potassium [Moles/Vol] 4.3 mmol/L 3.5 - 5.0 mmol/L [facility] Sodium [Moles/Vol] 136 mmol/L 134 - 146 mmol/L [facility] Urea nitrogen [Mass/Vol] 26 mg/dL 5 - 27 mg/dL [facility] THYROID PROFILEon 06-28-2023 Free T4 [Mass/Vol] 1.14 ng/dL Normal 0.61-1.60 [facility] Comment on above: Performed By: #### B MP, THYR #### [facility] ([id number]) [address] [place] [address] TSH 0.81 uIU/mL Normal 0.49-4.67 [facility] Comment on above: Performed By: #### B MP, THYR #### [facility] ([id number]) [address] [place] [address] Thyroid profile includes TSH FT4on 06-28-2023 Free T4 [Mass/Vol] 1.14 ng/dL 0.61 - 1.60 ng/dL [facility] TSH Qn 0.81 m[IU]/L [facility] XR shoulder LT min 2V*on XR shoulder LT min 2V* [facility] [place] [address] XRay Report Signed Patient: Mike Tellez MR#: [id number] : 1945 Acct:[id number] Age/Sex: 78 / F ADM Date: 05/11/23 Loc: [facility] Room: Type: [facility] Attending Dr: Aden Baca DO Copies to: [...] Justin Lucas M.D.05/11/2023 2:24 PM Dictation Location: [place] [address] Transcribed By: [facility] 05/11/23 1424 Dictated By: Justin Lucas DO 05/11/23 1422 Signed By: 05/11/23 1424 [facility] No Panel Informationon 04-07 [facility] Drug Screen, Urineon 024 Amphetamines Screen method >1000 ng/mL Ql (U) Negative Negative^N [facility] Comment on above: AMPH/METH screening cut off = 1000 ng/mL Barbiturates Screen Ql (U) Negative N egative^N [facility] Comment on above: Barbiturates screeni ng cut off value = 200 ng/mL Benzodiazepines Ql (U) Negative Negat iggy^N [facility] Comment on above: Benzodiazepines scre ening cut off value = 200 ng/mL Cocaine Ql (U) Negative Negative^N [facility] Comment on above: Cocaine screening cu t off value = 300 ng/mL Interpretation and review of laboratory results Abnormal [facility] Methadone Screen Ql (U) Negative Nega tive^N ative [facility] Comment on above: Methadone screening cut off value = 300 ng/mL. Methylenedioxymethamphetamin e Screen Ql (U) Negative Negative^N ative [facility] Comment on above: Ecstasy screening cu t off value = 500 ng/mL This report is intended for use in clinical monitoring or management of patients. Opiates Screen Ql (U) Positive Abnormal Negati ve^N [facility] Comment on above: Confirmation availab le upon request. Opiates screening cut off value = 300 ng/mL NOTE: This test is used for the detection of codeine, hydrocodone (>1000 ng/mL), morphine and hydromorphone (>900 ng/mL) in urine. oxyCODONE Ql (U) Negative Negative^N ative [facility] Comment on above: Oxycodone screening cut off value = 300 ng/mL NOTE: This test is used for the detection of oxycodone and oxymorphone in urine. Phencyclidine Screen method >25 ng/mL Ql (U) Negative Negative^N ative [facility] Comment on above: Phencyclidine screen ing cut off value = 25 ng/mL Tetrahydrocannabinol Screen method >50 ng/mL Ql (U) Negative Negative^N egative [facility] Comment on above: Cannabinoids/THC scr eening cut off value = 50 ng/mL [facility] PTH INTACTon 06-02-2022 PTH, Intact 14 pg/mL Critically low 15-65 [facility] Comment on above: Performed By: #### P THINT ####[facility] [id number] [place], [place] [address]Dr. Ashok Bailey HEMOGRAM AND PLATELon 2022 Hematocrit (Bld) [Volume fraction] 32.0 % Critically low 36.0-48.0 [facility] Comment on above: Performed By: #### H H ####[facility] [address] [place], [place] [address]DrAlex Bailey Hemoglobin (Bld) [Mass/Vol] 10.6 g/dL Critically low 12.0 -16.0 [facility] Comment on above: Performed By: #### H H ####[facility] [address] [place], [place] [address]DrAlex Bailey MCH (RBC) [Entitic mass] 31.4 pg Normal 26.7-34.0 [facility] Comment on above: Performed By: #### H H ####[facility] [address] [place], [place] [address]Dr. Ashok Bailey MCHC (RBC) [Mass/Vol] 33.1 g/dL Normal 29.9-35.2 [facility] Comment on above: Performed By: #### H H ####[facility] [address] [place], [place] [address]DrAlex Bailey MCV (RBC) [Entitic vol] 94.7 fL Normal 81.0-99.0 [facility] Comment on above: Performed By: #### H H ####[facility] [address] [place] [id number]. Ashok Bailey PLT 345 103/ul Normal 150-450 [facility] Comment on above: Performed By: #### H H ####[facility] [address] [place] [id number]. Ashok Bailey RBC 3.38 106/ul Critically low 4.20-5.40 [facility] Comment on above: Performed By: #### H H ####[facility] [address] [place] [address]Dr. Ashok Bailey WBC 8.4 103/ul Normal 4.0-11.0 [facility] Comment on above: Performed By: #### H H ####[facility] [address] [place] [address]Dr. Ashok Bailey MAGNESIUMon 06-01-2022 Magnesium [Mass/Vol] 1.8 mg/dL Normal 1.8-2.4 [facility] Comment on above: Performed By: #### C MP, URIC, MG, PHOS ####[facility] [address] [place] [address]Dr. Ashok Bailey PHOSPHORUSon 06-01-2022 Phosphate [Mass/Vol] 4.0 mg/dL Normal 2.6-4.7 [facility] Comment on above: Performed By: #### C MP, URIC, MG, PHOS ####[facility] [address] [place] [address]Dr. Ashok Bailey PROF 14(COMP METB)on 023 Albumin [Mass/Vol] 3.8 g/dL Normal 3.4-5.0 [facility] Comment on above: Performed By: #### C MP, URIC, MG, PHOS ####[facility] [address] [place] [address]Dr. Ashok Bailey Albumin/Globulin [Mass ratio] 1.1 {ratio} Normal [facility] Comment on above: Performed By: #### C MP, URIC, MG, PHOS ####[facility] [address] [place] [address]Dr. Ashok Bailey ALP [Catalytic activity/Vol] 96 U/L Normal 46-116 [facility] Comment on above: Performed By: #### C MP, URIC, MG, PHOS ####[facility] [address] [place] [address]Dr. Ashok Bailey ALT [Catalytic activity/Vol] 17 U/L Normal 14-59 [facility] Comment on above: Performed By: #### C MP, URIC, MG, PHOS ####[facility] [address] [place], [place] [address]Dr. Ashok Bailey Anion gap [Moles/Vol] 15.4 mmol/L Normal [facility] Comment on above: Performed By: #### C MP, URIC, MG, PHOS ####[facility] [address] [place], [place] [address]Dr. Ashok Bailey AST [Catalytic activity/Vol] 15 U/L Normal 15-37 [facility] Comment on above: Performed By: #### C MP, URIC, MG, PHOS ####[facility] [address] [place], [place] [address]Dr. Ashok Bailey Bilirubin [Mass/Vol] 0.3 mg/dL Normal 0.2-1.0 [facility] Comment on above: Performed By: #### C MP, URIC, MG, PHOS ####[facility] [address] [place], [place] [address]Dr. Ashok Bailey Calcium [Mass/Vol] 9.1 mg/dL Normal 8.5-10.1 [facility] Comment on above: Performed By: #### C MP, URIC, MG, PHOS ####[facility] [address] [place] [address]Dr. Ashok Bailey Chloride [Moles/Vol] 103 mmol/L Normal 98-107 [facility] Comment on above: Performed By: #### C MP, URIC, MG, PHOS ####[facility] [address] [place] [address]Dr. Ashok Bailey CO2 [Moles/Vol] 24.9 mmol/L Normal 21.0-32.0 [facility] Comment on above: Performed By: #### C MP, URIC, MG, PHOS ####[facility] [address] [place] [address]Dr. Ashok Bailey Creatinine [Mass/Vol] 1.35 mg/dL Critically high 0.55-1.02 [facility] Comment on above: Performed By: #### C MP, URIC, MG, PHOS ####[facility] [address] [place] [address]Dr. Ashok Bailey EGFR-AF GHANAIAN 46 mL/min/1.73m2 Critically low >=60 [facility] Comment on above: Performed By: #### C MP, URIC, MG, PHOS ####[facility] [address] [place], [place] [address]Dr. Ashok Bailey EGFR-NON AF GHANAIAN 38 mL/min/1.73m2 Critically low >=60 [facility] Comment on above: Performed By: #### C MP, URIC, MG, PHOS ####[facility] [address] [place], [place] [address]Dr. Ashok Bailey Globulin (S) [Mass/Vol] 3.4 g/dL Normal [facility] Comment on above: Performed By: #### C MP, URIC, MG, PHOS ####[facility] [address] [place] [address]Dr. Ashok Bailey Glucose [Mass/Vol] 86 mg/dL Normal 74-106 [facility] Comment on above: Performed By: #### C MP, URIC, MG, PHOS ####[facility] [address] [place], [place] [address]Dr. Ashok Bailey Potassium [Moles/Vol] 4.3 mmol/L Normal 3.5-5.1 [facility] Comment on above: Performed By: #### C MP, URIC, MG, PHOS ####[facility] [address] [place] [address]Dr. Ashok Bailey Protein [Mass/Vol] 7.2 g/dL Normal 6.4-8.2 [facility] Comment on above: Performed By: #### C MP, URIC, MG, PHOS ####[facility] [address] [place] [address]Dr. Ashok Bailey Sodium [Moles/Vol] 139 mmol/L Normal 136-145 [facility] Comment on above: Performed By: #### C MP, URIC, MG, PHOS ####[facility] [address] [place] [address]Dr. Ashok Bailey Urea nitrogen [Mass/Vol] 20.0 mg/dL Critically high 7.0-18 .0 [facility] Comment on above: Performed By: #### C MP, URIC, MG, PHOS ####[facility] [address] [place], [place] [address]Dr. Ashok Bailey Urea nitrogen/Creatinine [Ma ss ratio] 14.8 mg/mg Normal [facility] Comment on above: Performed By: #### C MP, URIC, MG, PHOS ####[facility] [address] [place] [address]DrAlex Bailey UA RANDOMon 06-01-2022 Bilirubin Ql (U) Negative Normal NEGATIVE [facility] Comment on above: Performed By: #### U A #### [facility] [address] [place] [address] Dr. Ashok Bailey Clarity (U) CLEAR Normal CLEAR [facility] Comment on above: Performed By: #### U A #### [facility] [address] [place] [address] [address] Ashok Bailey Color (U) LT. YELLOW Normal YELLOW [facility] Comment on above: Performed By: #### U A #### [facility] [address] [place] [address] Dr. Ashok Bailey Glucose Ql (U) Negative Normal NEGATIVE [facility] Comment on above: Performed By: #### U A #### [facility] [address] [place] [address] Dr. Ashok Bailey Hemoglobin Ql (U) Negative Normal NEGATIVE [facility] Comment on above: Performed By: #### U A #### [facility] [address] [place] [address] Dr. Ashok Bailey Ketones Ql (U) Negative Normal NEGATIVE [facility] Comment on above: Performed By: #### U A #### [facility] [address] [place] [address] Dr. Ashok Bailey LEUKOCYTES Negative Normal NEGATIVE [facility] Comment on above: Performed By: #### U A #### [facility] [address] [place] [address] Dr. Ashok Bailey Nitrite Ql (U) Negative Normal NEGATIVE [facility] Comment on above: Performed By: #### U A #### [facility] [facility] [address] [place] [address] Dr. Ashok Bailey pH (U) 6.0 [pH] Normal 5-9 [facility] Comment on above: Performed By: #### U A #### [facility] [address] [place] [address] Dr. Ashok Bailey SPEC GRAVITY 1.010 Normal 1.005-<=1. 025 [facility] Comment on above: Performed By: #### U A #### [facility] [address] [place] [address] Dr. Ashok Bailey UA PROTEIN Negative Normal NEGATIVE/ TRACE [facility] Comment on above: Performed By: #### U A #### [facility] [address] [place] [address] Dr. Ashok Bailey Urobilinogen Qn (U) 0.2 {Drew'U}/dL Normal 0.2 - 1.0 [facility] Comment on above: Performed By: #### U A #### [facility] [address] [place] [address] Dr. Ashok Bailey URIC ACID SERUMon 06-01-2022 Urate [Mass/Vol] 3.9 mg/dL Normal 2.6-6.0 [facility] Comment on above: Performed By: #### C MP, URIC, MG, PHOS ####[facility] [address] [place], [place] [address]LmDr. Ashok Bailey URINE T PROTEIN CREAT RATIOo n 06-01-2022 Protein (U) [Mass/Vol] 14.0 mg/dL Critically high <=12.0 [facility] Comment on above: Performed By: #### U RTPCR #### [facility] [address] [address] [address] Ashok Bailey UR PROT CREAT RAT 0.28 Normal [facility] Comment on above: Performed By: #### U RTPCR #### [facility] [address] [address] [address] Ashok Bailey URINE CREAT 50.47 mg/dL Normal 20.00-300. 00 [facility] Comment on above: Performed By: #### U RTPCR #### [facility] [address] [place] [address] Dr. Ashok Bailey VITAMIN D 25 OHon 06-01-2022 VIT D 25-OH 19.2 ng/mL Normal [facility] Comment on above: Performed By: #### F T4 #### [facility] [address] [address] [address] Ashok Bailey VIT D RANGES SEE BELOW Normal [facility] Comment on above: Result Comment: <20 ng/mL Vit D deficient 20 - <30 ng/mL Vit D insufficient 30 - 100 ng/mL Vit D sufficient >100 ng/mL Potential Toxicity Performed By: #### F T4 #### [facility] [address] [place] [address] Dr. Ashok Bailey US KIDNEYSon 05-03-2022 US KIDNEYS US KIDNEYS EXAM DATE: 05/03/2022 7:10 AM MST COMPARISON: None available. INDICATION: Stage IV chronic kidney disease. TECHNIQUE: Real-time ultrasound scanning of the kidneys and bladder was performed by the rn staff. Gear Milling Machine Set Up Operator static images are submitted for review. FINDINGS: [...] by: JOBY POLO Date: 2022-05-03 12:33 Normal [facility] FREE T4on 03-25-2022 Free T4 [Mass/Vol] 1.26 ng/dL Normal 0.76-1.46 [facility] Comment on above: Performed By: #### F T4 #### [facility] [address] [place], [place] [address] Dr. Ashok Bailey PROF CHEM 8 (BAS METB)on Anion gap [Moles/Vol] 17.6 mmol/L Normal [facility] Comment on above: Performed By: #### B MP, TSH ####[facility] [address] [place], [place] [address]OxAlex Bailey Calcium [Mass/Vol] 8.9 mg/dL Normal 8.5-10.1 [facility] Comment on above: Performed By: #### B MP, TSH ####[facility] [address] [place], [place] [address]YcAlex Bailey Chloride [Moles/Vol] 97 mmol/L Critically low 98-107 [facility] Comment on above: Performed By: #### B MP, TSH ####[facility] [address] [id number] Bailey CO2 [Moles/Vol] 22.2 mmol/L Normal 21.0-32.0 [facility] Comment on above: Performed By: #### Becki MEJIA, TSH ####[facility] [address] [place], [place] [address]Dr. Ashok Bailey Creatinine [Mass/Vol] 2.42 mg/dL Critically high 0.55-1.02 [facility] Comment on above: Performed By: #### Becki MEJIA, TSH ####[facility] [address] [place], [place] [address]Dr. Ashok Leo EGFR-AF GHANAIAN 24 mL/min/1.73m2 Critically low >=60 [facility] Comment on above: Performed By: #### Becki MEJIA, TSH ####[facility] [address] [place], [place] [address]Dr. Neelamandrew Bailey EGFR-NON AF GHANAIAN 20 mL/min/1.73m2 Critically low >=60 [facility] Comment on above: Performed By: #### Becki MEJIA, TSH ####[facility] [address] [place], [place] [address]Dr. Ashok Bailey Glucose [Mass/Vol] 84 mg/dL Normal 74-106 [facility] Comment on above: Performed By: #### Becki MEJIA, TSH ####[facility] [address] [place], [place] [address]Dr. Neelamandrew Leo Potassium [Moles/Vol] 4.8 mmol/L Normal 3.5-5.1 [facility] Comment on above: Performed By: #### Becki MEJIA, TSH ####[facility] [address] [place], [place] [address]Dr. Ashok Bailey Sodium [Moles/Vol] 132 mmol/L Critically low 136-145 [facility] Comment on above: Performed By: #### Becki MEJIA, TSH ####[facility] [address] [place], [place] [address]Dr. Neelamandrew Leo Urea nitrogen [Mass/Vol] 43.0 mg/dL Critically high 7.0-18 .0 [facility] Comment on above: Performed By: #### Becki MEJIA, TSH ####[facility] [address] [place] [address] Ashok Bailey Urea nitrogen/Creatinine [Ma ss ratio] 17.8 mg/mg Normal [facility] Comment on above: Performed By: #### B MP, TSH ####[facility] [address] [id number] Bailey TSHon 03-25-2022 TSH 2.368 uIU/mL Normal 0.358-3.74 0 [facility] Comment on above: Performed By: #### B MP, TSH ####[facility] [address] [id number] Bailey CPKon 11-12-2021 CK [Catalytic activity/Vol] 207 U/L Critically high 26- 192 [facility] Comment on above: Performed By: #### C MP, CK, TSH, LIPID #### [facility] [address] [address] [address] Ashok Bailey FREE T4on 11-12-2021 Free T4 [Mass/Vol] 1.16 ng/dL Normal 0.76-1.46 [facility] Comment on above: Performed By: #### F T4 #### [facility] [address] [address] [address] Ashok Bailey LIPID PROFILEon 11-12-2021 CHOL-HDL RATIO NORM SEE BELOW Normal [facility] Comment on above: Result Comment: 3.3 - 4.4 LOW RISK 4.4 - 7.1 AVERAGE RISK 7.1 - 11.0 MODERATE RISK >11.0 HIGH RISK Performed By: #### C MP, CK, TSH, LIPID #### [facility] [address] [address] [address] Ashok Bailey Cholesterol [Mass/Vol] 215 mg/dL Critically high <=200 [facility] Comment on above: Performed By: #### C MP, CK, TSH, LIPID #### [facility] [address] [address] [address] Ashok Bailey Cholesterol in HDL [Mass/Vol] 74 mg/dL Critically high 4 0-60 [facility] Comment on above: Performed By: #### C MP, CK, TSH, LIPID #### [facility] [address] [address] [address] Ashok Bailey Cholesterol in LDL [Mass/Vol] 114.4 mg/dL Normal [facility] Comment on above: Performed By: #### C MP, CK, TSH, LIPID #### [facility] [address] [address] [address] Ashok Bailey Cholesterol.total/Cholestero l in HDL [Mass ratio] 2.9 {ratio} Normal [facility] Comment on above: Performed By: #### C MP, CK, TSH, LIPID #### [facility] [address] [address] [address] Ashok Bailey HDL NORMAL > or = 60 mg/dl - LOW CARDIOVASCULAR RISK <40 mg/dl - HIGH CARDIOVASCULAR RISK Normal [facility] Comment on above: Performed By: #### C MP, CK, TSH, LIPID #### [facility] [address] [address] [address] Ashok Bailey LDL CALC NORMAL SEE BELOW Normal [facility] Comment on above: Result Comment: <100 mg/dl OPTIMAL 100 - 129 mg/dl NEAR OR ABOVE OPTIMAL 130 - 159 mg/dl BORDERLINE HIGH 160 - 189 mg/dl HIGH >190 mg/dl VERY HIGH Performed By: #### C MP, CK, TSH, LIPID #### [facility] [address] [address] [address] Ashok Bailey Triglyceride [Mass/Vol] 133 mg/dL Normal <=150 [facility] Comment on above: Performed By: #### C MP, CK, TSH, LIPID #### [facility] [address] [address] [address] Ashok Bailey VLDL CALC 26.6 mg/dL Normal [facility] Comment on above: Performed By: #### C MP, CK, TSH, LIPID #### [facility] [address] [address] [address] Ashok Bailey PROF 14(COMP METB)on 022 Albumin [Mass/Vol] 3.9 g/dL Normal 3.4-5.0 [facility] Comment on above: Performed By: #### C MP, CK, TSH, LIPID #### [facility] [address] [address] [address] Ashok Bailey Albumin/Globulin [Mass ratio] 1.1 {ratio} Normal [facility] Comment on above: Performed By: #### C MP, CK, TSH, LIPID #### [facility] [address] [address] [address] Ashok Bailey ALP [Catalytic activity/Vol] 84 U/L Normal 46-116 [facility] Comment on above: Performed By: #### C MP, CK, TSH, LIPID #### [facility] [address] [address] [address] Ashok Bailey ALT [Catalytic activity/Vol] 18 U/L Normal 14-59 [facility] Comment on above: Performed By: #### C MP, CK, TSH, LIPID #### [facility] [address] [place] [address] Dr. Ashok Bailey Anion gap [Moles/Vol] 15.1 mmol/L Normal [facility] Comment on above: Performed By: #### C MP, CK, TSH, LIPID #### [facility] [address] [place] [address] Dr. Ashok Bailey AST [Catalytic activity/Vol] 11 U/L Critically low 15- 37 [facility] Comment on above: Performed By: #### C MP, CK, TSH, LIPID #### [facility] [address] [address] [address] Ashok Bailey Bilirubin [Mass/Vol] 0.3 mg/dL Normal 0.2-1.0 [facility] Comment on above: Performed By: #### C MP, CK, TSH, LIPID #### [facility] [address] [address] [address] Ashok Bailey Calcium [Mass/Vol] 9.3 mg/dL Normal 8.5-10.1 [facility] Comment on above: Performed By: #### C MP, CK, TSH, LIPID #### [facility] [address] [address] [address] Ashok Bailey Chloride [Moles/Vol] 101 mmol/L Normal 98-107 [facility] Comment on above: Performed By: #### C MP, CK, TSH, LIPID #### [facility] [address] [place] [address] Dr. Ashok Bailey CO2 [Moles/Vol] 22.9 mmol/L Normal 21.0-32.0 [facility] Comment on above: Performed By: #### C MP, CK, TSH, LIPID #### [facility] [address] [place] [address] Dr. Ashok Bailey Creatinine [Mass/Vol] 1.67 mg/dL Critically high 0.55-1.02 [facility] Comment on above: Performed By: #### C MP, CK, TSH, LIPID #### [facility] [address] [place] [address] Dr. Ashok Bailey EGFR-AF GHANAIAN 36 mL/min/1.73m2 Critically low >=60 [facility] Comment on above: Performed By: #### C MP, CK, TSH, LIPID #### [facility] [address] [place] [address] Dr. Ashok Bailey EGFR-NON AF GHANAIAN 30 mL/min/1.73m2 Critically low >=60 [facility] Comment on above: Performed By: #### C MP, CK, TSH, LIPID #### [facility] [address] [place] [address] Dr. Ashok Bailey Globulin (S) [Mass/Vol] 3.5 g/dL Normal [facility] Comment on above: Performed By: #### C MP, CK, TSH, LIPID #### [facility] [address] [place] [address] Dr. Ashok Bailey Glucose [Mass/Vol] 96 mg/dL Normal 74-106 [facility] Comment on above: Performed By: #### C MP, CK, TSH, LIPID #### [facility] [address] [place] [address] Dr. Ashok Bailey Potassium [Moles/Vol] 5.0 mmol/L Normal 3.5-5.1 [facility] Comment on above: Performed By: #### C MP, CK, TSH, LIPID #### [facility] [address] [address] [address] Ashok Bailey Protein [Mass/Vol] 7.4 g/dL Normal 6.4-8.2 [facility] Comment on above: Performed By: #### C MP, CK, TSH, LIPID #### [facility] [address] [place] [address] Dr. Ashok Bailey Sodium [Moles/Vol] 134 mmol/L Critically low 136-145 [facility] Comment on above: Performed By: #### C MP, CK, TSH, LIPID #### [facility] [address] [place] [address] Dr. Ashok Bailey Urea nitrogen [Mass/Vol] 27.0 mg/dL Critically high 7.0-18 .0 [facility] Comment on above: Performed By: #### C MP, CK, TSH, LIPID #### [facility] [address] [place] [address] Dr. Ashok Bailey Urea nitrogen/Creatinine [Ma ss ratio] 16.2 mg/mg Normal [facility] Comment on above: Performed By: #### C MP, CK, TSH, LIPID #### [facility] [address] [place] [address] Dr. Ashok Bailey TSHon 11-12-2021 TSH 3.073 uIU/mL Normal 0.358-3.74 0 [facility] Comment on above: Performed By: #### C MP, CK, TSH, LIPID #### [facility] [address] [place] [address] Dr. Ashok Bailey [facility] METABOLIC PANE Lucas 05-30-2021 Albumin [Mass/Vol] 4.7 g/dL Normal 3.6-5.1 [facility] Comment on above: Performed By: #### 7 600, 22489 #### [facility] [address], [address] [place] [id number] Voice And Data Technician: Austin Tobin MD Albumin/Globulin [Mass ratio] 1.8 {ratio} Normal 1.0-2 .5 [facility] Comment on above: Performed By: #### 7 600, [id number] #### [facility] of [address], [address] [place] [address] Voice And Data Technician: Austin Tobin MD ALP [Catalytic activity/Vol] 84 U/L Normal 37-153 [facility] Comment on above: Performed By: #### 7 600, 28939 #### [facility] of [place] [address] Voice And Data Technician: Austin Tobin MD ALT [Catalytic activity/Vol] 13 U/L Normal 6-29 [facility] Comment on above: Performed By: #### 7 600, [address]01 #### [facility] of [address] [place] [address] Voice And Data Technician: Austin Tobin MD AST [Catalytic activity/Vol] 12 U/L Normal 10-35 [facility] Comment on above: Performed By: #### 7 600, 03004 #### [facility] of [address] [place] [address] Voice And Data Technician: Austin Tobin MD Bilirubin [Mass/Vol] 0.3 mg/dL Normal 0.2-1.2 [facility] Comment on above: Performed By: #### 7 600, 18362 #### [facility] of [place] [address] Voice And Data Technician: Austin Tobin MD BUN/CREATININE RATIO NOT APPLICABLE Normal 6-22 [facility] Comment on above: Performed By: #### 7 600, 84587 #### [facility] of [address] [place] [address] Voice And Data Technician: Austin Tobin MD Calcium [Mass/Vol] 10.2 mg/dL Normal 8.6-10.4 [facility] Comment on above: Performed By: #### 7 600, 20389 #### [facility] of [place] [address] Voice And Data Technician: Austin Tobin MD Chloride [Moles/Vol] 99 mmol/L Normal 98-110 [facility] Comment on above: Performed By: #### 7 600, 79967 #### [facility] [address], [address] [place] [address] Voice And Data Technician: Austin Tobin MD CO2 [Moles/Vol] 29 mmol/L Normal 20-32 [facility] Comment on above: Performed By: #### 7 600, 29063 #### [facility] [place] [address] Voice And Data Technician: Austin Tobin MD Creatinine [Mass/Vol] 0.71 mg/dL Normal 0.60-0.[address] [facility] Comment on above: Result Comment: For patients >49 years of age, the reference limit for Creatinine is approximately 13% higher for people identified as -Palauan. Performed By: #### 7 600, 12528 #### [facility] [address], [address] [place] [address] Voice And Data Technician: Austin Tobin MD eGFR NON-AFR. GHANAIAN 84 mL/min/1.73m2 Normal > OR = 60 [facility] Comment on above: Performed By: #### 7 600, 30701 #### [facility] [place] [address] Voice And Data Technician: Austin Tobin MD GFR/1.73 sq M.predicted rosa m g blacks MDRD (S/P/Bld) [Vol rate/Area] 97 mL/min/{1.73_m2} Normal > OR = 60 [facility] Comment on above: Performed By: #### 7 600, 48949 #### [facility] of [address], [address] [place] [address] Voice And Data Technician: Austin Tobin MD Globulin (S) [Mass/Vol] 2.6 g/dL Normal 1.9-3.7 [facility] Comment on above: Performed By: #### 7 600, 20125 #### [facility] [address], [address] [place] [address] Voice And Data Technician: Austin Tobin MD Glucose [Mass/Vol] 86 mg/dL Normal 65-99 [facility] Comment on above: Result Comment: Fasting reference interval Performed By: #### 7 600, 25798 #### [facility] of [address], [address] [place] [address] Voice And Data Technician: Austin Tobin MD Potassium [Moles/Vol] 4.4 mmol/L Normal 3.5-5.[address] [facility] Comment on above: Performed By: #### 7 600, 01624 #### [facility] of [address], [address] [place] [address] Voice And Data Technician: Austin Tobin MD Protein [Mass/Vol] 7.3 g/dL Normal 6.1-8.1 [facility] Comment on above: Performed By: #### 7 600, 20831 #### [facility] of [address], [address] [place] [address] Voice And Data Technician: Austin Tobin MD Sodium [Moles/Vol] 135 mmol/L Normal 135-146 [facility] Comment on above: Performed By: #### 7 600, 21482 #### [facility] of [address], [address] [place] [address] Voice And Data Technician: Austin Tobin MD Urea nitrogen [Mass/Vol] 10 mg/dL Normal 7-25 [facility] Comment on above: Performed By: #### 7 600, 92495 #### [facility] of [address], [address] [place] [address] Voice And Data Technician: Austin Tobin MD LIPID PANEL, [facility] - Cholesterol [Mass/Vol] 214 mg/dL High <200 [facility] Comment on above: Performed By: #### 7 600, 24016 #### [facility] of [address], [address] [place] [address] Voice And Data Technician: Austin Tobin MD Cholesterol in HDL [Mass/Vol] 85 mg/dL Normal > OR = 50 [facility] Comment on above: Performed By: #### 7 600, 90790 #### [facility] of [address], [address] [place] [address] Voice And Data Technician: Austin Tobin MD Cholesterol in LDL [Mass/Vol] [...] LDL-C. Jordan SS et al. JAUN. 2013;310(19): 0078-6888 ([email or web address]/faq/JYT339) Performed By: #### 7 600, 13097 #### [facility] [address], [address] [place] [address] Voice And Data Technician: Austin Tobin MD Cholesterol.total/Cholestero l in HDL [Mass ratio] 2.5 {ratio} Normal <5.0 [facility] Comment on above: Performed By: #### 7 600, 74156 #### [facility] [address], [address] [place] [address] Voice And Data Technician: Austin Tobin MD NON HDL CHOLESTEROL 129 mg/dL (calc) Normal <130 [facility] Comment on above: Result Comment: For patients with diabetes plus 1 major ASCVD risk factor, treating to a non-HDL-C goal of <100 mg/dL (LDL-C of <70 mg/dL) is considered a therapeutic option. Performed By: #### 7 600, 76093 #### [facility] [address], [address] [place] [address] Voice And Data Technician: Austin Tobin MD Triglyceride [Mass/Vol] 113 mg/dL Normal <150 [facility] Comment on above: Performed By: #### 7 600, 20908 #### [facility] [address], [address] [place] [address] Voice And Data Technician: Austin Tobin MD COMPREHENSIVE METABOLIC PANE [facility] 05-04-2021 Albumin [Mass/Vol] 4.3 g/dL Normal 3.6-5.1 [facility] Comment on above: Performed By: #### 7 600, 22789 #### [facility] of [place] [address] Voice And Data Technician: Austin Tobin MD Albumin/Globulin [Mass ratio] 1.8 {ratio} Normal 1.0-2 .5 [facility] Comment on above: Performed By: #### 7 600, 71163 #### [facility] of [address], [address] [place] [address] Voice And Data Technician: Austin Tobin MD ALP [Catalytic activity/Vol] 82 U/L Normal 37-153 [facility] Comment on above: Performed By: #### 7 600, 51817 #### [facility] of [place] [address] Voice And Data Technician: Austin Tobin MD ALT [Catalytic activity/Vol] 11 U/L Normal 6-29 [facility] Comment on above: Performed By: #### 7 600, 70277 #### [facility] of [address], [address] [place] [address] Voice And Data Technician: Austin Tobin MD AST [Catalytic activity/Vol] 12 U/L Normal 10-35 [facility] Comment on above: Performed By: #### 7 600, 85613 #### [facility] of [place] [address] Voice And Data Technician: Austin Tobin MD Bilirubin [Mass/Vol] 0.4 mg/dL Normal 0.2-1.2 [facility] Comment on above: Performed By: #### 7 600, 75989 #### [facility] of [address], [address] [place] [address] Voice And Data Technician: Austin Tobin MD BUN/CREATININE RATIO NOT APPLICABLE Normal 6-22 [facility] Comment on above: Performed By: #### 7 600, 04534 #### [facility] of [address], [address] [place] [address] Voice And Data Technician: Austin Tobin MD Calcium [Mass/Vol] 9.4 mg/dL Normal 8.6-10.4 [facility] Comment on above: Performed By: #### 7 600, 32922 #### [facility] [place] [address] Voice And Data Technician: Austin Tobin MD Chloride [Moles/Vol] 98 mmol/L Normal 98-110 [facility] Comment on above: Performed By: #### 7 600, 41093 #### [facility] [place] [address] Voice And Data Technician: Austin Tobin MD CO2 [Moles/Vol] 28 mmol/L Normal 20-32 [facility] Comment on above: Performed By: #### 7 600, 70242 #### [facility] [place] [address] Voice And Data Technician: Austin Tobin MD Creatinine [Mass/Vol] 0.73 mg/dL Normal 0.60-0.93 [facility] Comment on above: Result Comment: For patients >49 years of age, the reference limit for Creatinine is approximately 13% higher for people identified as -Palauan. Performed By: #### 7 600, [id number] #### [facility] [place] [address] Voice And Data Technician: Austin Tobin MD eGFR NON-AFR. GHANAIAN 82 mL/min/1.73m2 Normal > OR = 60 [facility] Comment on above: Performed By: #### 7 600, [id number] #### [facility] [place] [address] Voice And Data Technician: Austin Tobin MD GFR/1.73 sq M.predicted rosa m g blacks MDRD (S/P/Bld) [Vol rate/Area] 95 mL/min/{1.73_m2} Normal > OR = 60 [facility] Comment on above: Performed By: #### 7 600, [id number] #### [facility] [place] [address] Voice And Data Technician: Austin Tobin MD Globulin (S) [Mass/Vol] 2.4 g/dL Normal 1.9-3.7 [facility] Comment on above: Performed By: #### 7 600, [id number] #### [facility] [place] [address] Voice And Data Technician: Austin Tobin MD Glucose [Mass/Vol] 102 mg/dL Normal 65-139 [facility] Comment on above: Result Comment: Non-fasting reference interval For someone without known diabetes, a glucose value between 100 and 125 mg/dL is consistent with prediabetes and should be confirmed with a follow-up test. Performed By: #### 7 600, [id number] #### [facility] [place] [address] Voice And Data Technician: Austin Tobin MD Potassium [Moles/Vol] 4.3 mmol/L Normal 3.5-5.[address] [facility] Comment on above: Performed By: #### 7 600, [id number] #### [facility] [place] [address] Voice And Data Technician: Austin Tobin MD Protein [Mass/Vol] 6.7 g/dL Normal 6.1-8.1 [facility] Comment on above: Performed By: #### 7 600, 61451 #### [facility] [place] [address] Voice And Data Technician: Austin Tobin MD Sodium [Moles/Vol] 132 mmol/L Low 135-146 [facility] Comment on above: Performed By: #### 7 600, 54229 #### [facility] [place] [address] Voice And Data Technician: Austin Tobin MD Urea nitrogen [Mass/Vol] 12 mg/dL Normal 7-25 [facility] Comment on above: Performed By: #### 7 600, [id number] #### [facility] [place] [address] Voice And Data Technician: Austin Tobin MD LIPID PANEL, [facility] Cholesterol [Mass/Vol] 168 mg/dL Normal <200 [facility] Comment on above: Order Comment: FASTI NG:NO FASTING: NO Performed By: #### 7 600, [id number] #### [facility] [address], [address] [place] [address] Voice And Data Technician: Austin Tobin MD Cholesterol in HDL [Mass/Vol] 79 mg/dL Normal > OR = 50 [facility] Comment on above: Order Comment: FASTI NG:NO FASTING: NO Performed By: #### 7 600, 93036 #### [facility] [address], [address] [place] [address] Voice And Data Technician: Austin Tobin MD Cholesterol in LDL [Mass/Vol] [...] LDL-C. Jordan HOU et al. JAUN. 2013;310(19): 4387-1341 ([email or web address]/[email or web address]) Performed By: #### 7 600, 60257 #### [facility] [address], [address] [place] [address] Voice And Data Technician: Austin Tobin MD Cholesterol.total/Cholestero l in HDL [Mass ratio] 2.1 {ratio} Normal <5.0 [facility] Comment on above: Order Comment: FASTI NG:NO FASTING: NO Performed By: #### 7 600, [id number] #### [facility] [place] [address] Voice And Data Technician: Austin Tobin MD NON HDL CHOLESTEROL 89 mg/dL (calc) Normal <130 [facility] Comment on above: Order Comment: FASTI NG:NO FASTING: NO Result Comment: For patients with diabetes plus 1 major ASCVD risk factor, treating to a non-HDL-C goal of <100 mg/dL (LDL-C of <70 mg/dL) is considered a therapeutic option. Performed By: #### 7 600, [id number] #### [facility] [address] [place], [place] [address]e , [address] [place] [id number] Voice And Data Technician: Austin Tobin MD Triglyceride [Mass/Vol] 79 mg/dL Normal <150 [facility] Comment on above: Order Comment: FASTI NG:NO FASTING: NO Performed By: #### 7 600, [id number] #### [facility] [address] [place] [address], [address] [place] [address] Voice And Data Technician: Austin Tobin MD Vital Signs Date Time Vital Sign Value Performing Clinician Facility 10-10-2024 09:25-0400 Body height 157.5 cm CarsonSegetis DO Work Phone: [facility] 10-10-2024 09:25-0400 Body mass index (BMI) [Ratio] 26.16 kg/m2 Carson Furlong DO Work Phone: [facility] 10-10-2024 09:25-0400 Body weight 64.86 kg Carson Furlong [facility] 10-10-2024 09:25-0400 Diastolic blood pressure 72 mm[Hg] Carson Furlong DO [facility] 10-10-2024 09:25-0400 Systolic blood pressure 130 mm[Hg] Carson Furlong DO [facility] 06-06-2024 11:08-0400 Body height 157.5 cm Carson [employer] DO [facility] 06-06-2024 11:08-0400 Body mass index (BMI) [Ratio] 26.7 kg/m2 Carson Furlong DO [facility] 06-06-2024 11:08-0400 Body temperature 97.9 [degF] Carson Furlong DO Work Phone: [facility] 06-06-2024 11:08-0400 Body weight 66.22 kg Carson Furlong DO Work Phone: [facility] 06-06-2024 11:08-0400 Diastolic blood pressure 80 mm[Hg] Carson Furlong DO Work Phone: [facility] 06-06-2024 11:08-0400 Heart rate 75 /min Carson Furlong DO Work Phone: [facility] 06-06-2024 11:08-0400 Respiratory rate 18 /min Carson Furlong DO Work Phone: [facility] 06-06-2024 11:08-0400 SaO2% (BldA) [Mass fraction] 99 % Carson Furlong DO Work Phone: [facility] 06-06-2024 11:08-0400 Systolic blood pressure 122 mm[Hg] Carson Furlong DO Work Phone: [facility] 04-09-2024 10:57-0500 Body height 160.02 cm [facility] 04-09-2024 10:57-0500 Body mass index (BMI) [Ratio] 26 kg/m2 [facility] 04-09-2024 10:57-0500 Body temperature 97.8 [degF] [facility] 04-09-2024 10:57-0500 Body weight 66.67 kg [facility] 04-09-2024 10:57-0500 Diastolic blood pressure 66 mm[Hg] [facility] 04-09-2024 10:57-0500 Heart rate 61 /min [facility] 04-09-2024 10:57-0500 Respiratory rate 16 /min [facility] 04-09-2024 10:57-0500 Systolic blood pressure 138 mm[Hg] [facility] 03-12-2024 16:12-0500 Body height 157.5 cm Carson [employer] DO Work Phone: [facility] 03-12-2024 16:12-0500 Body mass index (BMI) [Ratio] 27.4 kg/m2 Carson Furlong DO Work Phone: [facility] 03-12-2024 16:12-0500 Body temperature 97.9 [degF] Carson Furlong DO Work Phone: [facility] 03-12-2024 16:12-0500 Body weight 67.95 kg Carson Furlong DO Work Phone: [facility] 03-12-2024 16:12-0500 Diastolic blood pressure 60 mm[Hg] Carson Furlong DO Work Phone: [facility] 03-12-2024 16:12-0500 Heart rate 88 /min Carson Furlong DO Work Phone: [facility] 03-12-2024 16:12-0500 Respiratory rate 18 /min Carson Furlong DO Work Phone: [facility] 03-12-2024 16:12-0500 SaO2% (BldA) [Mass fraction] 95 % Carson Furlong DO Work Phone: [facility] 03-12-2024 16:12-0500 Systolic blood pressure 110 mm[Hg] Carson Furlong DO Work Phone: [facility] 12-28-2023 13:02-0400 Body height 157.5 cm Carson Furlong DO Work Phone: [facility] 12-28-2023 13:02-0400 Body mass index (BMI) [Ratio] 26.26 kg/m2 Carson Furlong DO Work Phone: [facility] 12-28-2023 13:02-0400 Body temperature 98.1 [degF] Carson Kalyanlong DO Work Phone: [facility] 12-28-2023 13:02-0400 Body weight 65.14 kg Carson Furlong DO Work Phone: [facility] 12-28-2023 13:02-0400 Diastolic blood pressure 54 mm[Hg] Carson Furlong DO Work Phone: [facility] 12-28-2023 13:02-0400 Heart rate 78 /min Carson Furlong DO Work Phone: [facility] 12-28-2023 13:02-0400 Respiratory rate 20 /min Carson Furlong DO Work Phone: [facility] 12-28-2023 13:02-0400 SaO2% (BldA) [Mass fraction] 96 % Carson Furlong DO Work Phone: [facility] 12-28-2023 13:02-0400 Systolic blood pressure 122 mm[Hg] Carson Furlong DO Work Phone: [facility] 10-24-2023 10:52-0400 Body height 160.02 cm [facility] 10-24-2023 10:52-0400 Body mass index (BMI) [Ratio] 24.5 kg/m2 [facility] 10-24-2023 10:52-0400 Body temperature 97.8 [degF] [facility] 10-24-2023 10:52-0400 Body weight 62.76 kg [facility] 10-24-2023 10:52-0400 Diastolic blood pressure 67 mm[Hg] [facility] 10-24-2023 10:52-0400 Heart rate 80 /min [facility] 10-24-2023 10:52-0400 Respiratory rate 18 /min [facility] 10-24-2023 10:52-0400 SaO2% (BldA) [Mass fraction] 99 % [facility] 10-24-2023 10:52-0400 Systolic blood pressure 126 mm[Hg] [facility] 10-10-2023 10:37-0400 Body height 157.5 cm Carson Furlong DO Work Phone: [facility] 10-10-2023 10:37-0400 Body mass index (BMI) [Ratio] 26.14 kg/m2 Carson Furlong DO Work Phone: [facility] 10-10-2023 10:37-0400 Body weight 64.82 kg Carson Furlong DO Work Phone: [facility] 10-10-2023 10:37-0400 Diastolic blood pressure 68 mm[Hg] Carson Furlong DO Work Phone: [facility] 10-10-2023 10:37-0400 Systolic blood pressure 137 mm[Hg] Carson Furlong DO Work Phone: [facility] 09-26-2023 13:39-0400 Body height 160 cm Carson Furlong DO Work Phone: [facility] 09-26-2023 13:39-0400 Body mass index (BMI) [Ratio] 25.3 kg/m2 Carson Furlong DO Work Phone: [facility] 09-26-2023 13:39-0400 Body temperature 97.9 [degF] Carson Furlong DO Work Phone: [facility] 09-26-2023 13:39-0400 Body weight 64.77 kg Carson Furlong DO Work Phone: [facility] 09-26-2023 13:39-0400 Diastolic blood pressure 40 mm[Hg] Carson Furlong DO Work Phone: [facility] 09-26-2023 13:39-0400 Heart rate 81 /min Carson Furlong DO Work Phone: [facility] 09-26-2023 13:39-0400 Respiratory rate 18 /min Carson Furlong DO Work Phone: [facility] 09-26-2023 13:39-0400 SaO2% (BldA) [Mass fraction] 99 % Carson Furlong DO Work Phone: [facility] 09-26-2023 13:39-0400 Systolic blood pressure 100 mm[Hg] Carson Furlong DO Work Phone: [facility] 06-28-2023 11:33-0400 Body height 160 cm Carson Furlong DO Work Phone: [facility] 06-28-2023 11:33-0400 Body mass index (BMI) [Ratio] 25.35 kg/m2 Carson Furlong DO Work Phone: [facility] 06-28-2023 11:33-0400 Body temperature 97.5 [degF] Carson Furlong DO Work Phone: [facility] 06-28-2023 11:33-0400 Body weight 64.91 kg Carson Furlong DO Work Phone: [facility] 06-28-2023 11:33-0400 Diastolic blood pressure 78 mm[Hg] Carson Furlong DO Work Phone: [facility] 06-28-2023 11:33-0400 Heart rate 97 /min Carson Furlong DO Work Phone: [facility] 06-28-2023 11:33-0400 Respiratory rate 24 /min Carson Furlong DO Work Phone: [facility] 06-28-2023 11:33-0400 SaO2% (BldA) [Mass fraction] 100 % Carson Furlong DO Work Phone: [facility] 06-28-2023 11:33-0400 Systolic blood pressure 134 mm[Hg] Carson Furlong DO Work Phone: [facility] 04-28-2023 09:54-0500 Body height 160 cm Lian Dan APRN-COVERING MACHINE TENDER Work Phone: [facility] 04-28-2023 09:54-0500 Body mass index (BMI) [Ratio] 25.51 kg/m2 Lian Dan APRN-COVERING MACHINE TENDER Work Phone: [facility] 04-28-2023 09:54-0500 Body temperature 98.01 [degF] Lian Dan APRN-COVERING MACHINE TENDER Work Phone: [facility] 04-28-2023 09:54-0500 Body weight 65.32 kg Lian Dan APRN-COVERING MACHINE TENDER Work Phone: [facility] 04-28-2023 09:54-0500 Diastolic blood pressure 70 mm[Hg] Lian Dan APRN-COVERING MACHINE TENDER Work Phone: [facility] 04-28-2023 09:54-0500 Heart rate 79 /min Lian Dan APRN-COVERING MACHINE TENDER Work Phone: [facility] 04-28-2023 09:54-0500 SaO2% (BldA) [Mass fraction] 87 % Lian Dan APRN-COVERING MACHINE TENDER Work Phone: [facility] 04-28-2023 09:54-0500 Systolic blood pressure 140 mm[Hg] Lian Dan APRN-COVERING MACHINE TENDER Work Phone: [facility] 03-30-2023 08:33-0500 Body height 160 cm Lian Dan APRN-COVERING MACHINE TENDER Work Phone: [facility] 03-30-2023 08:33-0500 Body mass index (BMI) [Ratio] 24.66 kg/m2 Lian Dan APRN-COVERING MACHINE TENDER Work Phone: [facility] 03-30-2023 08:33-0500 Body temperature 97.9 [degF] Lian Dan APRN-COVERING MACHINE TENDER Work Phone: [facility] 03-30-2023 08:33-0500 Body weight 63.14 kg Lian Dan VAT P[employer]ER-COVERING MACHINE TENDER Work Phone: [facility] 03-30-2023 08:33-0500 Diastolic blood pressure 58 mm[Hg] Lian Dan VAT PACKER-COVERING MACHINE TENDER Work Phone: [facility] 03-30-2023 08:33-0500 Heart rate 78 /min Lian Dan APRN-COVERING MACHINE TENDER Work Phone: [facility] 03-30-2023 08:33-0500 SaO2% (BldA) [Mass fraction] 100 % Lian Dan APRN-COVERING MACHINE TENDER Work Phone: [facility] 03-30-2023 08:33-0500 Systolic blood pressure 118 mm[Hg] Lian Dan VAT PACKER-COVERING MACHINE TENDER Work Phone: [facility] 03-28-2023 11:20-0500 Body height 160.02 cm Demondlokesh [employer] Other [employer] Other 03-28-2023 11:20-0500 Body mass index (BMI) [Ratio] 24.83 kg/m2 Demondlokesh [employer] Other [employer] Other 03-28-2023 11:20-0500 Body temperature 96.9 [degF] Demondlokesh [employer] Other [employer] Other 03-28-2023 11:20-0500 Body weight 63.59 kg Demondlokesh [employer] Other [employer] Other 03-28-2023 11:20-0500 Diastolic blood pressure 70 mm[Hg] Azlokesh [employer] Other [employer] Other 03-28-2023 11:20-0500 Systolic blood pressure 138 mm[Hg] Bri Bakhous Other [employer] Other 10-11-2022 14:20-0400 Body height 160.02 cm Aziz Bakhous Other [employer] Other 10-11-2022 14:20-0400 Body mass index (BMI) [Ratio] 24.8 kg/m2 Aziz Bakhous Other [employer] Other 10-11-2022 14:20-0400 Body temperature 96.4 [degF] Aziz Bakhous Other [employer] Other 10-11-2022 14:20-0400 Body weight 63.5 kg Aziz Bakhous Other [employer] Other 10-11-2022 14:20-0400 Diastolic blood pressure 60 mm[Hg] Aziz Bakhous Other [employer] Other 10-11-2022 14:20-0400 Respiratory rate 18 /min Aziz Bakhous Other [employer] Other 10-11-2022 14:20-0400 Systolic blood pressure 130 mm[Hg] Aziz Bakhous Other [employer] Other 06-07-2022 10:20-0400 Body height 160.02 cm Aziz Bakhous Other [employer] Other 06-07-2022 10:20-0400 Body mass index (BMI) [Ratio] 24.55 kg/m2 Aziz Bakhous Other [employer] Other 06-07-2022 10:20-0400 Body temperature 97.2 [degF] Azlokesh [employer] Other [employer] Other 06-07-2022 10:20-0400 Body weight 62.87 kg Aziz Bakhous Other [employer] Other 06-07-2022 10:20-0400 Diastolic blood pressure 72 mm[Hg] Aziz Bakhous Other [employer] Other 06-07-2022 10:20-0400 Respiratory rate 18 /min Azlokesh Bakhous Other [employer] Other 06-07-2022 10:20-0400 SaO2% (BldA) [Mass fraction] 97 % Azlokesh Bakhous Other [employer] Other 06-07-2022 10:20-0400 Systolic blood pressure 130 mm[Hg] Aziz Bakhous Other [employer] Other 04-26-2022 09:40-0500 Body height Azlokesh Fays Other [employer] Other 04-26-2022 09:40-0500 Body mass index (BMI) [Ratio] 24.97 kg/m2 Azlokesh Bakhous Other [employer] Other 04-26-2022 09:40-0500 Body weight 63.96 kg Aziz Bakhous Other [employer] Other 04-26-2022 09:40-0500 Diastolic blood pressure 84 mm[Hg] Aziz Bakhous Other [employer] Other 04-26-2022 09:40-0500 SaO2% (BldA) [Mass fraction] 98 % Bri Davis Other [employer] Other 04-26-2022 09:40-0500 Systolic blood pressure 150 mm[Hg] Bri Davis Other [employer] Other Encounters Encounter Date Encounter Type Care Provider Facility Start: 10-10-2024 End: 10-10-2024 Patient encounter procedure Carson Sullivan DO Work Phone: [facility] Comment on above: Medicare annual well ness visit, subsequent (Primary Dx); Screening for depression Start: 10-10-2024 End: 10-10-2024 ambulatory [facility] Start: 09-26-2024 End: 09-27-2024 Refill Carson Sullivan DO Work Phone: [facility] Start: 07-01-2024 End: 07-01-2024 Refill Carson Sullivan DO Work Phone: [facility] Start: 06-12-2024 End: 06-14-2024 Orders Only Carson Kohling DO Work Phone: [facility] Comment on above: 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 (Primary Dx) Start: 06-07-2024 End: 06-07-2024 Orders Only Carson Kohling DO Work Phone: [facility] Start: 06-06-2024 End: 06-06-2024 ambulatory [facility] Start: 06-06-2024 End: 06-06-2024 Office outpatient visit 25 minutes Carson Kohling DO Work Phone: [facility] Comment on above: 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 ([facility]) (Primary Dx); Gastroesophageal reflux disease without esophagitis; Acquired hypothyroidism; Hyperlipidemia, unspecified hyperlipidemia type; Hiatal hernia; Overweight (BMI 25.0-29.9) Start: 06-06-2024 End: 06-06-2024 ambulatory [facility] Start: 04-23-2024 End: 04-23-2024 Refill Carson Sullivan DO Work Phone: [facility] Comment on above: Essential hypertensi on Start: 04-09-2024 End: 04-09-2024 ambulatory [facility] Work Phone: Start: 04-09-2024 End: 04-09-2024 Patient encounter procedure [facility] Work Phone: Start: 04-02-2024 Non-patient / Non-visit [facility] Work Phone: Start: 03-12-2024 End: 03-12-2024 Office outpatient visit 15 minutes Carson Sullivan DO [facility] Comment on above: Post-herpetic polyne uropathy (Primary Dx) Start: 03-12-2024 End: 03-12-2024 ambulatory [facility] Start: 03-04-2024 End: 03-04-2024 Telephone encounter Carson Sullivan DO Work Phone: [facility] Start: 02-29-2024 End: 02-29-2024 Orders Only Carson Sullivan DO Work Phone: [facility] Start: 02-22-2024 End: 02-22-2024 ambulatory [facility] Start: 01-31-2024 End: 01-31-2024 [facility] Start: 01-03-2024 End: 01-03-2024 Refill Carson Sullivan DO Work Phone: [facility] Start: 01-01-2024 End: 01-01-2024 Refill Carson Sullivan DO Work Phone: [facility] Start: 12-28-2023 End: 12-28-2023 Office outpatient visit 25 minutes Carson Sullivan DO Work Phone: [facility] Comment on above: Anxiety (Primary Dx) ; Sleep disturbance; Cigarette smoker; Need for immunization against influenza; Fibromyalgia; Postlaminectomy syndrome, not elsewhere classified; Hyperlipidemia, unspecified hyperlipidemia type Start: 12-28-2023 End: 12-28-2023 ambulatory [facility] Start: 12-25-2023 End: 12-25-2023 ambulatory Diamond Mooney MD Facility:[facility] Start: 10-24-2023 End: 10-24-2023 ambulatory [facility] Work Phone: Start: 10-24-2023 End: 10-24-2023 Patient encounter procedure [facility] Work Phone: Start: 10-17-2023 Non-patient / Non-visit [facility] Work Phone: Start: 10-16-2023 End: 10-16-2023 ambulatory Diamond Mooney MD Facility: [facility] Start: 10-10-2023 End: 10-11-2023 Refill Carson Sullivan DO Work Phone: [facility] Comment on above: Anxiety Start: 10-10-2023 End: 10-10-2023 Patient encounter procedure Carson Sullivan DO Work Phone: [facility] Comment on above: Medicare annual well ness visit, subsequent (Primary Dx); Screening for depression Start: 10-06-2023 End: 10-07-2023 Refill Carson [facility] DO [facility] Comment on above: Essential hypertensi on Start: 09-28-2023 End: 09-28-2023 Telephone encounter Carson Sullivan DO [facility] Start: 09-26-2023 End: 09-26-2023 Office outpatient visit 25 minutes Carson Kohling DO Work [facility] Comment on above: 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 (Primary Dx); Postlaminectomy syndrome, not elsewhere classified; Tobacco dependence syndrome; Fibromyalgia Start: 09-16-2023 End: 09-16-2023 Refill Carson Kohling DO [facility] Start: 09-10-2023 End: 09-10-2023 Refill Carson Kohling DO [facility] Medicine Comment on above: Fibromyalgia Start: 08-31-2023 End: 08-31-2023 Orders Only Lian Michelle Kenya VAT PACKER-COVERING MACHINE TENDER Work Phone: [facility] Start: 08-24-2023 End: 08-31-2023 Refill Trixie Jeremy WASHING MACHINE OPERATOR [facility] Comment on above: Postlaminectomy synd colette, not elsewhere classified Start: 08-21-2023 End: 08-21-2023 Refill Carson Kohling DO Work Phone: [facility] Start: 08-15-2023 End: 10-04-2023 Telephone encounter Carson Kohling DO Work Phone: [facility] Start: 07-26-2023 End: 08-01-2023 Refill Trixie Jeremy WASHING MACHINE OPERATOR [facility] Comment on above: Postlaminectomy synd colette, not elsewhere classified Start: 07-14-2023 End: 07-14-2023 ambulatory YULIA HERNÁNDEZ Not Available Start: 07-03-2023 End: 07-03-2023 Orders Only Carson Sullivan DO Work Phone: [facility] Comment on above: Postlaminectomy synd colette, not elsewhere classified (Primary Dx) Start: 06-30-2023 End: 06-30-2023 Telephone encounter Kim Diamond [facility] - [facility] Medicine Comment on above: Preventative Screeni ng Start: 06-28-2023 End: 06-28-2023 ambulatory [facility] Start: 06-28-2023 End: 06-28-2023 Office outpatient visit 25 minutes Carson Sullivan DO Work Phone: [facility] Comment on above: 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 (CMS- HCC) (Primary Dx); Acquired hypothyroidism; Fibromyalgia; Anxiety; Postlaminectomy syndrome, not elsewhere classified; Sleep disturbance; Tobacco dependence syndrome; Spinal stenosis of lumbar region without neurogenic claudication; Hypokalemia; Hyperlipidemia, unspecified hyperlipidemia type Start: 06-03-2023 Orders Only Carson cordero DO Work Phone: [facility] Comment on above: Special screening fo r malignant neoplasm of colon (Primary Dx) Start: 05-29-2023 Refill Farnaz Bennett [facility] Medicine Comment on above: 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 Start: 05-19-2023 End: 05-19-2023 ambulatory YULIA HERNÁNDEZ Not Available Start: 2023 End: 2023 ambulatory Aden Baca Facility:[facility] Start: 05-02-2023 Refill Trixie Luna [facility] Evangelist g[facility] - Family Medicine Comment on above: 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 Start: 04-29-2023 Refill Lian Dan VAT PACKER-COVERING MACHINE TENDER Work Phone: [facility] Start: 04-28-2023 End: 04-28-2023 Office outpatient visit 15 minutes Lian Martinez Kenya VAT PACKER-COVERING MACHINE TENDER Work Phone: [facility] Comment on above: 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 (Primary Dx); Tobacco dependence syndrome; Lumbosacral spondylosis without myelopathy Start: 04-17-2023 Refill Trixie gomez [facility] Medicine [...] above: Actinic keratosis (P rimary Dx) Start: 03-30-2023 End: 03-30-2023 Office outpatient visit 15 minutes Lian Dan VAT PACKER-COVERING MACHINE TENDER Work Phone: [facility] Comment on above: Chronic pain of both shoulders (Primary Dx); Peripheral vascular disease (CMS-HCC); Stage 3b chronic kidney disease ([facility]-HCC); Smoker; Lumbosacral spondylosis without myelopathy Start: 03-28-2023 End: 03-28-2023 ambulatory Zubka Other [employer] Other Start: 03-28-2023 Office outpatient vi sit 25 minutes Azlokesh [employer] [facility] Start: 03-20-2023 Refill Carson cordero DO Work Phone: [facility] Start: 03-10-2023 End: 03-10-2023 ambulatory YULIA HERNÁNDEZ Not Available Start: 03-07-2023 End: 04-06-2023 ambulatory LIAN DAN [facility] Start: 03-03-2023 Orders Only Lian Dan VAT PACKER-COVERING MACHINE TENDER Work Phone: [facility] Start: 03-02-2023 Refill Farnaz Bennett [facility] Comment on above: 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 Start: 02-20-2023 End: 03-06-2023 ambulatory LIAN DAN [facility] Start: 10-11-2022 End: 10-11-2022 ambulatory Aziz Bakhous Other [employer] Other Start: 10-11-2022 Office outpatient vi sit 25 minutes Aziz Bakhous [facility] Start: 06-07-2022 End: 06-07-2022 ambulatory Aziz Bakhous Other [employer] Other Start: 06-07-2022 Patient encounter procedure Aziz Bakhous [facility] Start: 06-01-2022 End: 06-02-2022 ambulatory AZIZ BAKHOUS Facility:[facility] Start: 05-03-2022 End: 05-04-2022 ambulatory AZIZ BAKHOUS Facility:[facility] Start: 04-26-2022 End: 04-26-2022 ambulatory Aziz Bakhous Other [employer] Other Start: 04-26-2022 Office outpatient ne w 30 minutes Aziz Bakhous [facility] Start: 03-25-2022 End: 03-26-[address] CARSON SULLIVAN Facility:[facility] Start: 11-12-2021 End: 11-13-[address] CARSON SULLIVAN Facility:[facility] Start: 11-04-2021 End: 11-04-2021 ambulatory SABRINA MANUEL Facility:[facility] Start: 10-07-2021 End: 10-07-2021 ambulatory SABRINA MANUEL Facility:[facility] Procedures Date Procedure Procedure Detail Performing Clinician Start: 10-10-2024 Adult depression scr eening assessment Carson Furlong DO Work Phone: Start: 06-06-2024 Adult depression scr eening assessment Carson Furlong DO Work Phone: Start: 12-28-2023 Adult depression scr eening assessment Carson Furlong DO Work Phone: Start: 10-10-2023 Adult depression scr eening assessment Carson Furlong DO Work Phone: Start: 09-26-2023 Adult depression scr eening assessment Carson Furlong DO Work Phone: Start: 06-28-2023 Adult depression scr eening assessment Carson Furlong DO Work Phone: Start: 04-28-2023 Adult depression scr eening assessment Lian Kenya VAT PACKER-COVERING MACHINE TENDER Work Phone: Start: 04-07-2023 CRYOTHERAPY SKIN LESION Yulia FOSTER Work Phone: Start: 03-30-2023 Adult depression scr eening assessment Lian Kenya VAT PACKER-COVERING MACHINE TENDER Work Phone: Start: 02-09-2023 Adult depression scr eening assessment Lian Kenya VAT PACKER-COVERING MACHINE TENDER Work Phone: Plan of Treatment Date Care Activity Detail Author Start: 10-14-2025 End: 10-14-2025 Patient encounter procedure 10/14/2025 1:00 PM EDT Office Visit [facility] [address] [place] [id number] [facility] Start: 10-10-2025 Depression Screening Depression Scre ening [facility] Start: 10-10-2025 Fall Risk Screening Fall Risk Screen ing [facility] Start: 10-10-2025 Medicare Annual Well ness Visit Medicare Annual Wellness Visit [facility] Start: 10-10-2025 Tobacco Screening Tobacco Screening [facility] Start: 06-06-2025 Depression Screening Depression Scre ening [facility] Start: 06-06-2025 Tobacco Screening Tobacco Screening [facility] Start: 03-12-2025 Tobacco Screening Tobacco Screening [facility] Start: 02-21-2025 Tobacco Screening Tobacco Screening [facility] Start: 12-27-2024 Adult BMI Screening Adult BMI Screen ing [facility] Start: 12-27-2024 Depression Screening Depression Scre ening [facility] Start: 12-27-2024 Fall Risk Screening Fall Risk Screen ing [facility] Start: 12-27-2024 Tobacco Screening Tobacco Screening [facility] Start: 12-06-2024 End: 12-06-2024 Patient encounter procedure 12/06/2024 11:15 AM EDT Office Visit [facility] - [facility] Medicine [address] [place] [address] Carson Sullivan, DO [address], [facility] [place] [place] [address] [facility] Start: 11-04-2024 Influenza vaccination Influenza Vacc ine [facility] Start: 10-10-2024 End: 10-10-2024 Patient encounter procedure 10/10/2024 9:40 AM EDT Office Visit [facility] - [facility] [address] [place] [address] [facility] Start: 10-09-2024 Adult BMI Screening Adult BMI Screen ing [facility] Start: 10-09-2024 Depression Screening Depression Scre ening [facility] Start: 10-09-2024 Fall Risk Screening Fall Risk Screen ing [facility] Start: 10-09-2024 Medicare Annual Well ness Visit Medicare Annual Wellness Visit [facility] Start: 10-09-2024 Tobacco Screening Tobacco Screening [facility] Start: 09-25-2024 Adult BMI Screening Adult BMI Screen ing [facility] Start: 09-25-2024 Depression Screening Depression Scre ening [facility] Start: 09-25-2024 Fall Risk Screening Fall Risk Screen ing [facility] Start: 09-25-2024 Tobacco Screening Tobacco Screening [facility] Start: 06-27-2024 Adult BMI Screening Adult BMI Screen ing [facility] Start: 06-27-2024 Depression Screening Depression Scre ening [facility] Start: 06-27-2024 Fall Risk Screening Fall Risk Screen ing [facility] Start: 06-27-2024 Tobacco Screening Tobacco Screening [facility] Start: 06-06-2024 End: 06-06-2024 Patient encounter procedure 06/06/2024 11:00 AM EDT Office Visit [facility] [address] [place] [address] Carson Sullivan DO [address], [facility] [place] [address] [facility] Start: 04-28-2024 Adult BMI Screening Adult BMI Screen ing [facility] Start: 04-28-2024 Depression Screening Depression Scre ening [facility] Start: 04-28-2024 Fall Risk Screening Fall Risk Screen ing [facility] Start: 04-28-2024 Tobacco Screening Tobacco Screening [facility] Start: 04-10-2024 DTaP,Tdap and Td Vaccines (2 - Td or Tdap) DTaP,Tdap and [...] Tobacco Screening [facility] Start: 03-26-2024 End: 03-26-2024 Patient encounter procedure 03/26/2024 1:30 PM EST Office Visit [facility] [address] [place] [address] Carson Sullivan, DO [address] [place] [address] [facility] Start: 03-12-2024 End: 03-12-2024 Patient encounter procedure 03/12/2024 4:00 PM EST Office Visit [facility] [address] [place] [address] Carson Sullivan, DO [address] [place] [address] [facility] Start: 02-22-2024 End: 02-22-2024 ambulatory 02/22/2024 2:15 PM EST Support Visit [facility] [address] [place] [address] Carson Sullivan, DO [address] [place] [address] [facility] - Family [facility] Start: 02-10-2024 Adult BMI Screening Adult BMI Screen ing [facility] Start: 02-10-2024 Depression Screening Depression Scre ening [facility] Start: 02-10-2024 Fall Risk Screening Fall Risk Screen ing [facility] Start: 02-10-2024 Tobacco Screening Tobacco Screening [facility] Start: 12-28-2023 End: 12-28-2023 Patient encounter procedure 12/28/2023 1:00 PM EDT Office Visit [facility] [address] [place] [address] Carson Sullivan, DO [address] [place] [address] [place] [address] [facility] Start: 11-05-2023 Influenza vaccination Influenza Vacc ine [facility] Start: 10-10-2023 End: 10-10-2023 Patient encounter procedure 10/10/2023 2:20 PM EDT Office Visit [facility] [address] [place] [address] [facility] - Family [facility] Start: 10-10-2023 End: 10-10-2023 Patient encounter procedure 10/10/2023 10:40 AM EDT Office Visit [facility] [address] [place] [address] [facility] Start: 09-26-2023 End: 09-26-2023 Patient encounter procedure 09/26/2023 1:45 PM EDT Office Visit [facility] [address] [place] [address] Carson Sullivan, [address] [place] [address] [facility] Start: 08-17-2023 End: 08-17-2023 Patient encounter procedure 08/17/2023 11:40 AM EDT Office Visit [facility] [address] [place] [address] [facility] Internal [...] [facility] [address] [place] [address] Yulia Hernández PA [address] [place] [address] [facility] Start: 04-07-2023 End: 04-07-2023 Patient encounter procedure 04/07/2023 10:20 AM EST Office Visit [facility] [address] [place] [address] Yulia Hernández PA [address] [place] [address] Arrived [facility] Comment on above: Arrived Start: 03-30-2023 End: 03-30-2024 XR Shoulder - left 2 Views X-ray shoulder left minimum 2 views Imaging Routine Chronic pain of both shoulders Expected: 03/30/2023, Expires: 03/30/2024 [email or web address] Work Phone: Comment on above: Expected: 03/30/2023 , Expires: 03/30/2024 Start: 03-30-2023 End: 03-30-2024 XR Shoulder - right 2 Views X-ray shoulder right minimum 2 views Imaging Routine Chronic pain of both shoulders Expected: 03/30/2023, Expires: 03/30/2024 [facility] [employer] Comment on above: Expected: 03/30/2023 , Expires: 03/30/2024 Start: 03-07-2023 End: 03-07-2023 Patient encounter procedure 03/07/2023 2:00 PM EST Appointment [facility] [address] [place] [address] [facility] Start: 02-03-2023 Screening for malign ant neoplasm of colon Colon Cancer Screening 3 Year Cologuard [facility] Start: 05-10-1966 Administration of varicella zoster vaccine Zoster (Shingles) Vaccine (1 of 2) [facility] Start: 05-10-1965 Adult BMI Follow Up Plan Adult BMI F ollow Up Plan [facility] Start: 1945 Tobacco Counseling Tobacco Counselin g [email or web address] [facility] Cologu[facility] C[facility] Lab Routine Special screening for malignant neoplasm of colon Ordered: 06/03/2023 [employer] Work Phone: Comment on above: Ordered: 06/03/2023 End: 06-06-2025 Comprehensive metabolic 2000 panel - Serum or Plasma Comprehensive metabolic panel Lab Routine 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 Renal function 1999 panel - Serum or Plasma [facility] End: 06-06-2025 Thyroid profile includes TSH FT4 Thyroid profile includes TSH FT4 Lab Routine Acquired hypothyroidism 1 Occurrences starting 06/06/2024 until 06/06/2025 [facility] Comment on above: 1 Occurrences starti ng 06/06/2024 until 06/06/2025 [facility] Immunizations Immunization Date Immunization Notes Care Provider Bonnie barreto 12-28-2023 Seasonal trivalent influenza vaccine, adjuvanted, preservative free Carson Kalyankye DO Work Phone: [facility] 12-28-2023 Immunization, In Clinic,; Translations: [Drug or medicament (substance)] Carson Sullivan [facility] 12-28-[facility]23 influenza virus vacc ine, unspecified formulation Carson Kalyankye DO Work Phone: [facility] 02-09-2023 Influenza Vaccine, Quadrivalent, Adjuvanted Lian UREÑA Work Phone: [facility] 02-09-2023 influenza virus vacc ine, unspecified formulation Carson Sullivan DO Work Phone: [facility] 12-04-2020 influenza, high dose seasonal, preservative-free Lian Kenya VAT PACKER-COVERING MACHINE TENDER Work Phone: [facility] 11-25-2019 influenza, injectabl e, quadrivalent, preservative free Lian Kenya VAT PACKER-COVERING MACHINE TENDER Work Phone: [facility] 05-18-2019 Seasonal trivalent influenza vaccine, adjuvanted, preservative free Lian Kenya VAT PACKER-COVERING MACHINE TENDER Work Phone: [facility] 11-19-2018 Seasonal trivalent influenza vaccine, adjuvanted, preservative free Lian Kenya VAT PACKER-COVERING MACHINE TENDER Work Phone: [facility] 11-20-2017 influenza, injectabl e, quadrivalent, contains preservative Lian Kenya VAT PACKER-COVERING MACHINE TENDER Work Phone: [facility] 11-20-2017 Seasonal trivalent influenza vaccine, adjuvanted, preservative free Lian Kenya VAT PACKER-COVERING MACHINE TENDER Work Phone: [facility] 11-25-2016 influenza, injectabl e, quadrivalent, preservative free Lian Kenya VAT PACKER-COVERING MACHINE TENDER Work Phone: [facility] 11-25-2016 influenza, seasonal, injectable Lian Kenya VAT PACKER[employer]COVERING MACHINE TENDER Work Phone: [facility] 03-14-2016 pneumococcal polysaccharide vaccine, 23 valent Lian Kenya VAT PACKER-COVERING MACHINE TENDER Work Phone: [facility] 12-10-2015 influenza, high dose seasonal, preservative-free Lian Kenya VAT PACKER-COVERING MACHINE TENDER Work Phone: [facility] 03-10-2015 pneumococcal conjuga te vaccine, 13 valent Lian Kenya VAT PACKER-COVERING MACHINE TENDER Work Phone: [facility] 12-08-2014 influenza, seasonal, injectable, preservative free [facility] Work Phone: [facility] 04-10-2014 tetanus toxoid, redu savanna diphtheria toxoid, and acellular pertussis vaccine, adsorbed [facility] Work Phone: [facility] 12-23-2013 influenza virus vacc ine, unspecified formulation Lian [facility] Work Phone: [facility] 01-28-2013 pneumococcal conjuga te vaccine, 13 valent [facility] Work Phone: [facility] Payers Date Payer Category Payer Self-pay 2023 Private Health Insurance 2013 Medicare [id number] 2013 Medicare HMO [facility] [id number] 1959 Medicare [id number] 1947 Unknown [id number] 2.16840.1.305503.3.579. 2.593 1947 Unknown [id number] 2.16840.1.694428.3.579. 2.593 1947 Unknown [id number] 2.16840.1.196057.3.579. 2.593 1947 Unknown [id number] 2.16.840.1.998120.3.579. 2.593 1947 Unknown [id number] 2.16.840.1.940241.3.579. 2.593 1947 Unknown [id number] 2.16.840.1.472143.3.579. 2.593 1947 Unknown [id number] 2.16.840.1.429741.3.579. 2.1286 1947 Unknown [id number] 2.16.840.1.099710.3.579. 2.1286 1947 Unknown [id number] 2.16.840.1.754378.3.579. 2.1259 1947 Unknown [id number] 2.16.840.1.965641.3.579. 2.1259 1947 Unknown [id number] 2.16.840.1.593199.3.579. 2.1259 1947 Unknown [id number] 2.16840.1.827655.3.579. 2.1259 1947 Unknown [id number] 2.16.840.1.852327.3.579. 2.196 1947 Unknown [id number] 2.16840.1.509344.3.579. 2.196 1947 Unknown [id number] 2.16.840.1.164792.3.579. 2.1286 1947 Unknown [id number] 2.16.840.1.515946.3.579. 2.1286 1947 Unknown [id number] 2.16.840.1.635454.3.579. 2.1286 1947 Unknown [id number] 2.16.840.1.554939.3.579. 2.128 1947 Unknown [id number] 2.16.840.1.805423.3.579. 2.1286 1947 Unknown [id number] 2.16.840.1.602374.3.579. 2.1286 1947 Unknown [id number] 2.16.840.1.378159.3.579. 2.1286 Medicare Medicare [id number] Unknown [id number] 2.16.840.1.794343.3.579. 2.531 Social History Date Type Detail Facility Start: 07-18-2022 End: 06-28-2023 Sex Assigned At [facility] [employer] Other Start: 03-10-2023 Tobacco smoking status [facility] Tobacco smoking consumption unknown [facility] Start: 1945 Sex Assigned At Not on file [facility] [employer] Start: 10-24-2023 End: 10-24-2023 Tobacco smoking status ALIS Smoker (finding) [facility] Start: 1945 Sex Assigned At Female [facility] Start: 11-16-2021 End: 06-28-2023 Tobacco smoking status [facility] Smokes tobacco daily [facility] History of tobacco use Cigarette Smoker P [facility] Start: 07-18-2022 End: 06-28-2023 Cigarettes smoked current (pack per day) - Reported 1 [facility] Start: 11-16-2021 End: 06-28-2023 Tobacco use and exposure Smokeless tobacco non-user [facility] Start: 02-22-2024 End: 10-10-2024 Alcoholic beverage intake Lifetime non-drinker (finding) [facility] [employer], or [employer] threatened to shut off services in your home in past 12Mo No [facility] [facility] Are you now , , , , never or living with a partner? [facility] How often to you hav e a drink containing alcohol? Monthly or less [facility] How many standard drinks containing alcohol do you have on a typical day? 1 or 2 [facility] How often do you hav e 6 or more drinks on 1 occasion? Never [facility] How hard is it for y ou to pay for the very basics like food, housing, medical care, and heating Not hard at all [facility] Do you feel stress - tense, restless, nervous, or anxious, or unable to sleep at night because your mind is troubled all the time - these days [OSQ] Only a little [facility] Start: 06-28-2023 Tobacco Comment Trying to cut back-smoking about 1/2 PPD now but it depends; trying to quit so she can have shoulder replacement surgery [facility] Start: 10-09-2014 End: 04-09-2024 Sex Female (finding) [facility] Clinical Notes 10-07-2021 to 10-10-2024 Carson Sullivan, DO - 10/10/2024 9:40 AM EDTTelephone Encounter - Alisa Fernandez, WASHING MACHINE OPERATOR - 06/12/2024 10:41 AM EDTTelephone Encounter - Carson Sullivan, DO - 06/12/2024 10:41 AM EDT Note Date & Type Note Facility 10-10-2024 History of Presen t illness Narrative Subjective SUBJECTIVE: Patient ID: Drea Tellez is a 79 y.o. female who presents for a Medicare Annual Wellness exam. HPI The following portions of the patient's history were reviewed and updated as appropriate: allergies, current medications, past family history, past medical history, past social history, past surgical history and problem list. AWV FLOWSHEET : Lifestyle Assessment Do you smoke or use smokeless tobacco?: (!) Yes If you smoke or use smokeless tobacco, are you ready to quit?: (!) No Are you exposed to secondhand smoke?: No On average, how many drinks of alcohol do you consume in a week?: None Do you exercise for 30 or more minutes on average at least 3 days a week?: Sometimes Do you have any tooth, denture, or oral problems?: (!) Yes Do you snore or has anyone told you that you snore?: No Do you try to eat a balanced diet?: Yes Do you experience leakage of urine, also known as urinary incontinence?: Never Do you have difficulty bathing?: No Do you have difficulty dressing?: No Do you have difficulty grooming?: No Do you have difficulty eating?: No Do you have difficulty getting out of a chair?: No Do you have difficulty walking?: No Do you have difficulty using the toilet?: No Do you have difficulty doing laundry?: No Do you have difficulty with housekeeping?: No Do you have difficulty preparing a meal?: No Do you have difficulty shopping?: No Do you have difficulty using transportation?: No Do you have difficulty paying bills?: No Do you have difficulty managing finances?: No Fall Risk Fall Risk Assessment Completed?: Yes Have you fallen in the past year?: No Are you worried about falling?: (!) Yes Do you feel unsteady when standing or walking?: (!) Yes Risk Stratification: Moderate Risk Depression Screening Little interest or pleasure [...] on average in the past week?: 6 Safety Assessment Do you have throw rugs on the floor?: No Do you feel safe at your home?: Yes Do you feel unsteady when walking?: (!) Yes Are you having difficulty with driving?: No Do you have trouble seeing?: No Do you use a bath bar/seat?: No Do you use a raised toilet seat?: No Do you use a cane?: No Do you use a walker?: No Do you use a wheelchair?: No Hearing Assessment Do you strain or struggle to hear/understand conversations?: No Do you have trouble hearing the television or radio when others do not?: No Does your family ever voice concerns about your hearing?: No Do you wear hearing aid/s?: No Personal Health During the past 4 weeks, how would you rate your overall health?: Good Do you understand how to take all of your medications?: Yes How confident are you that you can control and manage most of your health problems?: Very confident In the past 12 months, how many times have you been hospitalized?: None End of Life Planning Do you have a living will?: Yes Do you have a durable power of traffic law attorney?: Yes Cognitive Screening Do you have trouble remembering or recalling facts or events?: No Do family members or caregivers report that you have difficulty remembering things?: No 6-Cit: Normal REVIEW OF SYSTEMS: Review of Systems Objective PHYSICAL EXAMINATION: Vitals: 10/10/24 0925 BP: 130/72 Weight: 64.9 kg (143 lb) Height: 157.5 cm (5' 2 ) Physical Exam Assessment/Plan ASSESSMENT/PLAN Encounter Diagnoses Name Primary? Medicare annual wellness visit, subsequent Yes Screening for depression Health maintenance discussed. Depression screen was negative. At least 3 minute spent administering and discussing. Cognitive evaluation did not reveal any impairment. She does have advanced directives in place. Return in about 1 year (around 10/10/2025). documented in this encounter [facility] 06-12-2024 Miscellaneous Notes Formattin g of this note might be different from the original. Patient called and wanted a referral to at [facility]. He specializes in shoulders. Okay. Referral is in documented in this encounter [facility] 06-12-2024 Telephone encount er Note Patient called and wanted a referral to at [facility]. He specializes in shoulders. [facility] 06-12-2024 Telephone encount er Note Okay. Referral is in [facility] 06-06-2024 History of Presen t illness Narrative Subjective Patient ID: Drea Tellez is a 79 y.o. female. Drea Tellez is 79 y.o. female that presents to clinic for CV recheck. She is taking her medications. She is not having any side effects. Her post herpetic neuralgia pain is better. She had labs done in March from the counter sales representative. Her kidney tests have improved. She sees pain management. Patient is on 5mg oxycodone 5 times a day with benefit. She no longer takes lorazepam. Review of Systems Objective Physical Exam Vitals reviewed. Exam conducted with a ship keeper present (Antonio Orozco MS 3). Constitutional: General: She is not in acute distress. Appearance: She is not ill-appearing. HENT: Head: Normocephalic. Eyes: General: No scleral icterus. Extraocular Movements: Extraocular movements intact. Conjunctiva/sclera: Conjunctivae normal. Cardiovascular: Rate and Rhythm: Normal rate and regular rhythm. Heart sounds: Normal heart sounds. No murmur heard. Pulmonary: Effort: Pulmonary effort is normal. No respiratory distress. Breath sounds: Normal breath sounds. No wheezing, rhonchi or rales. Musculoskeletal: Cervical back: Neck supple. Neurological: General: No focal deficit present. Mental Status: She is alert and oriented to person, place, and time. Psychiatric: Attention and Perception: Attention normal. Mood and Affect: Mood and affect normal. Speech: Speech normal. Behavior: Behavior normal. Behavior is cooperative. Thought Content: Thought content normal. Cognition and Memory: Cognition normal. Judgment: Judgment normal. Assessment/Plan Encounter Diagnoses Name Primary? 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 (CMS-HCC) Yes Gastroesophageal reflux disease without esophagitis Acquired hypothyroidism Hyperlipidemia, unspecified hyperlipidemia type Hiatal hernia Overweight (BMI 25.0-29.9) Check lipid panel, TSH and T4. Follow up with counter sales representative as directed. Avoid NSAIDs. She is overweight. She would benefit from weight loss. It is contributing to high cholesterol and high blood pressure. The OARRS/MAPPS database was reviewed today and found to be appropriate. No indication of medication diversion, or non compliance. We discussed her PPI use with chronic kidney disease. It is not good to take a high dose PPI. She is is taking 2 omeprazole a day and has been for years. She says when she tries to cut back she gets symptoms. She will try to cut back to 1 a day and she can use oral antacid as needed when she has breakthrough symptoms. May need to add famotidine. She did have an EGD years ago in 2005 from surgeon in [place] which showed hiatal hernia but her stomach was pristine . She may need another EGD if she is unable to get off the PPI. So far has no worrisome symptoms such as weight loss or dysphagia. She was encouraged to quit smoking as that is probably aggravating her GERD. Note composed in part by Atnonio Orozco MS 3. 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 She did get an deqe-kvy-hxeuoaz Biofreeze patch with mild benefit. She regrets [...] visit in 2 weeks. [facility] Miscellaneous Notes* Telephone Encounter - Do Ryan [...] 9:50 AM EST Notified documented in this encounterOhio[facility]12-30-2024 Telephone encounter Note* Telephone Encounter - Do Ryan - 03/04/2024 9:50 AM EST PATIENT WENT TO THE er MONDAY FOR HER SHINGLES, THEY ARE VERY PAINFUL AND BURNING. SHE IS TAKING TYLENOL BUT ITS NOT HELPING, SHE WAS WONDERING IF YOU COULD RECOMMEND SOMETHING TO HELP. COMES IN 03/12 [facility] [place] [id number] Telephone encounter Note* Telephone Encounter - Carson Sullivan DO - 03/04/2024 9:50 AM EST She can try a Lidoderm patch if the lesions are closed. She does have pain pills available and she can not take Motrin so there is not a whole lot more to offer. Pain management can do injections butI do not think she sees pain management anymore [facility] [place] [id number] Telephone encounter Note* Telephone Encounter - Do Ryan - 03/04/2024 9:50 AM EST Notified [facility] [id number] Miscellaneous Notes* Telephone Encounter - Sandra Hernandez CMA - 01/31/2024 12:45 PM EST Pt requesting refill on levothyroxine. [facility]. documented in this encounterOhio[facility]11-27-2024 Telephone encounter Note* Telephone Encounter - Sandra Hernandez CMA - 01/31/2024 12:45 PM EST Pt requesting refill on levothyroxine. [facility]. [facility]10-24-[facility] History of Present illness Narrative* Carson Sullivan [...] Risks of benzodiazepines and opioids discussed. The counter sales representative recommended to stop duloxetine if it wasn't [...] return for the scan. 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 documented in this encounterOhio[facility]07-[facility]-2024 Miscellaneous Notes* Telephone Encounter - Imani Leone - 09/28/2023 10:15 AM EDT Patient called to request pain management referral discussed at her last visit. documented in this encounterOhio[facility]07-[facility]-2024 Telephone encounter Note* Telephone Encounter - Imani Leone - 09/28/2023 10:15 AM EDT Patient called to request pain management referral discussed at her last visit. [facility] History of Present illness Narrative* [...] moderate relief and typically it does provide ciai-mz-nshmkxjg relief but she notes that it does [...] mouth in the morning. documented in this encounterOhio[facility]06-27-2024 History of Present illness Narrative* NIRANJAN Herrera - 08/31/2023 11:58 AM EDT The OARRS/MAPPS database was reviewed today and found to be appropriate. No indication of medication diversion, or non compliance. NIRANJAN Herrera 08/31/23 1159 documented in this encounterOhio[facility]06-20-2024 Miscellaneous Notes* Telephone Encounter - NIRANJAN Herrera - 08/24/2023 2:[address] Sullivan it looks like per OARRs that you have been prescribing this for her but she is due for an appointment Staff please set up controlled substance agreement by the end of September with me or Dr. Sullivan documented in this encounterOhio[facility]06-20-2024 Telephone encounter Note* Telephone Encounter - NIRANJAN Herrera - 08/24/2023 2:[address] Sullivan it looks like per [facility]s that you have been prescribing this for her but she is due for an appointment Staff please set up controlled substance agreement by the end of September with me or Dr. Sullivan [facility]06-11-2024 Miscellaneous Notes* Telephone Encounter - Julisa Sullivan - 08/15/2023 4:13 PM EDT Called pt to remind her of MAW appointment August 16 at 1140. documented in this encounterOhioHealth [facility]06-11-2024 Telephone encounter Note* Telephone Encounter - Julisa Sullivan - 08/15/2023 4:13 PM EDT Called pt to remind her of MAW appointment August 16 at 1140. [facility] Miscellaneous Notes* Telephone Encounter - [...] plans to complete soon. documented in this encounterOhioHealth [facility] Center04-26-2024 Telephone encounter Note* Telephone Encounter [...] regarding cologuard. Patient plans to complete soon. [facility] [place] [id number] History of Present illness Narrative* Carson Sullivan, [...] earlier this year. She is seeing the counter sales representative and her last labs showed her kidney [...] hypertension with stage 3a chronic kidney disease ([facility]) - Basic Metabolic Panel; Future Blood pressure essentially at goal. Check BMP. Follow-up with counter sales representative as directed. Acquired hypothyroidism - Thyroid profile [...] cardiovascular events and strokes. documented in this encounterOhioHealth [facility] Center02-23-2024 History of Present illness Narrative* Lian Dan APRN-COVERING MACHINE TENDER - 04/28/2023 10:00 AM EST [address] [facility] [id number] Patient: Drea Tellez Date of : 1945 [...] appointment with Orthopedics May 10 with from [place]. The current pain is bothering her enough where she can not get to sleep and it rarely 'let us up'. She feels like her [place] barely takes the edge off her pain and she is also usingsome topical slgo-yni-rnwzyqs analgesics. She was also participating in some [...] Hyperlipidemia Hypokalemia Migraine Osteopenia Peripheral vascular disease ([facility]) Screen for colon cancer 02/04/2020 cologuard-negative [...] by mouth every morning 90 tablet 1 lk-psj-apewb-calcium carb-K1 400 mcg-500 mg calcium-20 mcg tablet [...] or hospitalization) Allergies: Sulfa (sulfonamide antibiotics), Hydrochlorothiazide, Mmmshym-qfd-dpu reductase inhibitors, and Nickel Tobacco History: Social [...] area. Discussed limits of Tylenol with taking [place]. Parking pass renewed for the next 5 [...] HERRERA APRN-CNP 05/01/23 0902 documented in this encounterOhioHealth [facility] Center02-02-2024 History of Present illness Narrative* KRISTIN Contreras [...] limited to risks of scarring, darker or technical illustrations map inker pigmentary changes, recurrence, incomplete removal and infection. 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 The pain has been going on for about 2 years or more but it has progressively worsened especially on the left side in the last 6 months. She has never received any injections in her shoulders that she can think of. She has no numbness or tingling in herarms. Problem List Items Addressed This Visit Cardiovascular and Mediastinum Peripheral vascular disease ([facility] [place] Genitourinary Stage 3b chronic kidney disease ([facility] [place] Other Visit Diagnoses Chronic pain of both [...] Hyperlipidemia Hypokalemia Migraine Osteopenia Peripheral vascular disease ([facility] [place]) Screen for colon cancer 02/04/2020 cologuard-negative Spinal [...] by mouth every morning 90 tablet 1 yp-hes-qbvbz-calcium carb-K1 400 mcg-500 mg calcium-20 mcg tablet [...] or hospitalization) Allergies: Sulfa (sulfonamide antibiotics), Hydrochlorothiazide, Hhmrhtz-obx-fpq reductase inhibitors, and Nickel Tobacco History: Social [...] Drug Screen, Urine; Future Peripheral vascular disease ([facility]) Stage 3b chronic kidney disease ([facility]) Smoker Follow-up: Will obtain new x-rays bilateral shoulders, [facility]. Agree with stopping physical therapy if it is not making the pain any better. Patient would like a referral to Orthopedics in [place], this was placed in system. She should [...] file.Pt is due for refill 2/3 - [place] Rx placed for this specific date. At next appt, consider lowering dose to lowest effective dose to help control pain. NIRANJAN HERRERA APRN-CNP 04/02/23 1244 documented in this encounterOhioHealth [facility] Center01-23-2024 Evaluation note* Encounter Date Diagnosis Assessment Notes [...] WNL I asked the patient to continue zlqd-usu-prmmlky vitamin D supplement 1999Mar, Nephrolithiasis (ICD-10 - N20.0) Renal ultrasound shows nonobstructive bilateral renal calculi which are small in size. I asked the patient to continue ample water intake [employer] Other [id number] History of Present illness Narrative* NIRANJAN Herrera - 03/03/2023 1:29 PM EST The OARRS/MAPPS database was reviewed today and found to be appropriate. No indication of medication diversion, or non compliance. Pt is due for refill 03/11/22, last filled 02/08/[address] Sullivan who is out of town. NIRANJAN Herrera 03/03/23 7702 documented in this [facility]12-28-2023 Miscellaneous Notes* Telephone Encounter - Farnaz Bennett CMA - 03/02/2023 2:51 PM EST Pt called and would like a refill on her NORCO. Pharmacy is listed and correct. * Telephone Encounter - NIRANJAN Herrera - 03/02/2023 2:51 PM EST Pt is due for refill 03/11 - I will send but pharmacy will not fill until this time documented in this [facility]12-28-2023 Telephone encounter Note* Telephone Encounter - Farnaz Bennett CMA - 03/02/2023 2:51 PM EST Pt called and would like a refill on her NORCO. Pharmacy is listed and correct. [facility]12-28-2023 Telephone encounter Note* Telephone Encounter - NIRANJAN Herrera - 03/02/2023 2:51 PM EST Pt is due for refill 03/11 - I will send but pharmacy will not fill until this time [facility]08-08-2023 Evaluation note* Encounter Date Diagnosis Assessment Notes [...] WNL I asked the patient to continue ehcu-scd-wldywth vitamin D supplement 1999Oct, Nephrolithiasis (ICD-10 - N20.0) Renal ultrasound shows nonobstructive bilateral renal calculi which are small in size. I asked the patient to continue ample water intake [employer] Other 04-04-2023 Evaluation note* Encounter Date Diagnosis [...] is low at 19. I patient with xdpc-ftb-jcscjpx vitamin D supplement 1999Jun, Nephrolithiasis (ICD-10 - N20.0) Renal ultrasound shows nonobstructive bilateral renal calculi which are small in size. I asked the patient to continue ample water intake [employer] Other 02-21-2023 Evaluation note* Encounter Date Diagnosis [...] at home and to follow low-salt diet [employer] Other 09-01-2022 NoteOPERATIVE NOTE OPERATION DATE: 11/04/2021 [...] ensuring mobility, phacoemulsification was performed in a wsncmkm-vfg-nsrwmk-type fashion. After all nuclear material had been [...] following day for postoperative care.[facility] [id number] NoteHISTORY AND PHYSICAL EXAMINATION Date:11/03/2021 HISTORY: Patient [...] decline other than that of cataract. 2. [id number] patient was briefed in the office and [...] forward with this elective procedure.[facility] [id number] NoteOPERATIVE NOTE OPERATION DATE: 10/07/2021 SURGEON: Sabrina [...] ensuring mobility, phacoemulsification was performed in a jlgpfun-dvq-vjcaxx-type fashion. After all nuclear material had been [...] following day for postoperative care.[facility] 10-07-2021 NoteHISTORY AND PHYSICAL EXAMINATION Date:10/06/2021 [...] decline other than that of cataract. 2. [id number] patient was briefed in the office and [...] forward with this elective procedure.[facility]Evaluation [facility]* Diagnosis Actinic keratosis- Primary [facility]* Diagnosis 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 [facility]* Diagnosis Lumbosacral spondylosis without myelopathy [facility]* Diagnosis Chronic pain of both shoulders- Primary Peripheral vascular disease ([facility]) Unspecified peripheral vascular disease Stage 3b chronic kidney disease ([facility]) Smoker Tobacco use disorder Lumbosacral spondylosis without myelopathy [facility]* Diagnosis Essential hypertension Unspecified essential hypertension [facility]* Diagnosis Primary osteoarthritis of both shoulders- Primary Tobacco dependence syndrome Tobacco use disorder Lumbosacral spondylosis without myelopathy [facility]* Diagnosis Lumbosacral spondylosis without myelopathy [facility]* Diagnosis Lumbosacral spondylosis without myelopathy [facility]* Diagnosis Special screening for malignant neoplasm of colon- Primary Special screening for malignant neoplasms, colon [facility]* Diagnosis 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 ([facility])- Primary Acquired hypothyroidism Unspecified hypothyroidism Fibromyalgia Unspecified myalgia and myositis Anxiety Anxiety state, unspecified Postlaminectomy syndrome, not elsewhere classified Sleep disturbance Unspecified sleep disturbance Tobacco dependence syndrome Tobacco use disorder Spinal stenosis of lumbar region without neurogenic claudication Hypokalemia Hypopotassemia Hyperlipidemia, unspecified hyperlipidemia type [facility]* Diagnosis Postlaminectomy syndrome, not elsewhere classified- Primary [facility]* Diagnosis Postlaminectomy syndrome, not elsewhere classified [facility]* Diagnosis Postlaminectomy syndrome, not elsewhere classified [facility]* Diagnosis Fibromyalgia Unspecified myalgia and myositis [facility]* Diagnosis Essential hypertension Unspecified essential hypertension [facility]* Diagnosis Anxiety Anxiety state, unspecified [facility]* Diagnosis Localized osteoarthrosis of both shoulder regions- Primary Postlaminectomy syndrome, not elsewhere classified Tobacco dependence syndrome Tobacco use disorder Fibromyalgia Unspecified myalgia and myositis [facility]* Diagnosis Medicare annual wellness visit, subsequent- Primary Screening for depression documented in this encounter [facility] Diagnosis Anxiety- Primary Anxiety state, unspecified Sleep disturbance Unspecified sleep disturbance Cigarette smoker Tobacco use disorder Need for immunization against influenza Need for prophylactic vaccination and inoculation against influenza Fibromyalgia Unspecified myalgia and myositis Postlaminectomy syndrome, not elsewhere classified Hyperlipidemia, unspecified hyperlipidemia type documented in this encounter [facility]* Diagnosis Essential hypertension Unspecified essential hypertension documented in this encounter [facility]* Diagnosis 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 ([facility])- Primary Gastroesophageal reflux disease without esophagitis Esophageal reflux Acquired hypothyroidism Unspecified hypothyroidism Hyperlipidemia, unspecified hyperlipidemia type Hiatal hernia Diaphragmatic hernia without mention of obstruction or gangrene Overweight (BMI 25.0-29.9) Overweight documented in this encounter [facility] Diagnosis Primary osteoarthritis of both shoulders- Primary documented in this encounter [facility]* Diagnosis Medicare annual wellness visit, subsequent- Primary Screening for depression documented in this encounter [facility] [place] SystemHistory general Narrative - Reported* Type Description [...] Surgical History cataract surgery Hospitalization History See [email or web address] Other History general Narrative - Reported* Type [...] CANCER BIOPSY ON NOSE Hospitalization History See [email or web address] Other InstructionsNot on filedocumented in this encounter [...] Care Everywhere. * Shoulder Pain Discharge Instructions (Peruvian) documented in this encounter[facility] [place] SystemInstructionsNot on file documented in [facility] encounterM[facility] SystemInstructions* Attachments The following attachments cannot be sent through Care Everywhere. * Shoulder Pain Discharge Instructions (Peruvian) documented in [facility] encounterM[facility] SystemInstructionsNot on file documented in this encounterProOhio[facility] SystemInstructionsNot on file documented in this encounterProOhio[facility] SystemInstructionsNot on file documented in this encounterProOhio[facility] SystemInstructionsNot on file documented in this encounterProOhio[facility] SystemInstructionsNot on file documented in this encounterProFlorala [facility] [place] SystemInstructionsNot on file documented in this encounterUniversity [facility] [place] [facility] HospitalInstructionsNot on file documented in this encounterOhioHealth Grant Medical CenterInstructionsNot on file documented in this encounterMansfield Hospital SystemReason for referral (narrative)* Consultation (Routine) - Pending Review Specialty Diagnoses / Procedures Referred By Darby mon Referred To Contact Orthopedic Surgery Diagnoses Chronic pain of both shoulders Lian Dan APRN-CNP [address] [place] [address] Rosales Hylton MD [address] [place] [address] Referral ID Status Reason Start Date Expiration Date Visits Requested Visits Authorized [id number] Pending Review Specialty Services Required 03/30/2023 03/29/2024 1 [facility] Purpose Family History Relationship Condition Age [...] 025 10:54am Chronic kidney disease, stage 3a Februar y 2024 10:54am Hyponatremia April 09, 2024 1 0:54am Nephrolithiasis April 09, 2024 1 0:54am Smoking greater than 40 pack years Febru fatuma 2024 10:54am Vitamin D deficiency April 09, 2024 10:54am Reason for Referral Specialty Diagnoses / Procedures Referred By Contac t Referred To Contact Diagnoses Carson Navarro, DO [address], [facility] [place] [address] Referral ID Status Reason Start Date Expiration Date V isits Requested Visits Authorized [id number] Pending Review 1 1 Specialty Diagnoses / Procedures Referred By Contac t Referred To Contact Diagnoses Lumbosacral spondylosis without myelopathy Procedures Disability/Handicap Lian Tran, VAT PACKER-COVERING MACHINE TENDER [address] [place] [address] Referral ID Status Reason Start Date Expiration Date V isits Requested Visits Authorized [id number] Pending Review 04/28/2023 04/27/2024 1 1 Additional Source Comments INFORMATION SOURCE (unrecogn ized section and content) DATE CREATED AUTHOR 05/30/2021 [facility] DATE CREATED AUTHOR AUTHOR'S ORGANIZ ATION 06/10/2022 [facility] DATE CREATED AUTHOR AUTHOR'S ORGANIZ ATION 04/09/2023 [facility] DATE CREATED AUTHOR AUTHOR'S ORGANIZ ATION 05/14/2023 [facility] DATE CREATED AUTHOR AUTHOR'S ORGANIZ ATION 07/16/2023 [facility] DATE CREATED AUTHOR AUTHOR'S ORGANIZ ATION 12/31/2023 [facility] DATE CREATED AUTHOR AUTHOR'S ORGANIZ ATION 06/09/2024 [facility] DATE CREATED AUTHOR AUTHOR'S MAI ATION 10/12/2024 [facility] REASON FOR [...] sub Reason Comments MAW Reason Comments controlled Reason Comments Hypertension Reason Comments maw Care Teams (unrecognized sec tion and content) [...] October 24, 2023 End: October 24, 2023 Rope Laying Machine Operator Relationship Specialty Start Date End Date Carson Sullivan DO [address], [place] [address] PCP - General Family Medicine 02/14/17 Rope Laying Machine Operator Relationship Specialty Start Date End Date Carson Sullivan DO [address], [place] [address] PCP - General Family Medicine 02/14/17 Rope Laying Machine Operator Relationship Specialty Start Date End Date Carson Sullivan DO [address], [place] [address] PCP - General Family Medicine 02/14/17 Team Status: Active Member Role Status Dates Carson Sullivan DO Primary Care Provider Active Start: April 02, 2024 Bri Davis MD Attending Provider Active Star t: April 02, 2024 Team Status: Inactive Member Role Status Dates Carson Sullivan DO Primary Care Provider Active Start: April 09, 2024 End: April 09, 2024 Bri Davis MD Attending Provider Active Star t: April 09, 2024 End: April 09, 2024 Rope Laying Machine Operator Relationship Specialty Start Date End Date NealCarson [address] [place] [address] PCP - General Family Medicine 02/14/17 Rope Laying Machine Operator Relationship Specialty Start Date End Date Carson Sullivan Mustapha [address] [place] [address] PCP - General Family Medicine 02/14/17 Rope Laying Machine Operator Relationship Specialty Start Date End Date Theo Sullivanandrew Luciano [address] [place] [address] PCP - General Family Medicine 02/14/17 Rope Laying Machine Operator Relationship Specialty Start Date End Date Theo Sullivanandrew Luciano [address] [place] [address] PCP - General Family Medicine 02/14/17 Rope Laying Machine Operator Relationship Specialty Start Date End Date Carson Sullivan Mustapha [address] [place] [address] PCP - General Family Medicine 02/14/17 Rope Laying Machine Operator Relationship Specialty Start Date End Date Carson Sullivan MustaphaDO [address], [place] [address] PCP - General Family Medicine 02/14/17 Rope Laying Machine Operator Relationship Specialty Start Date End Date Carson Sullivna DO [address], [place] [address] PCP - General Family Medicine 02/14/17 Rope Laying Machine Operator Relationship Specialty Start Date End Date KalyankyeCarson DO [address], [place] [address] PCP - General Family Medicine 02/14/17 Rope Laying Machine Operator Relationship Specialty Start Date End Date KalyankyeCarson DO [address], [place] [address] PCP - General Family Medicine 02/14/17 Rope Laying Machine Operator Relationship Specialty Start Date End Date KalyantyroneCarson cordero DO [address], [place] [address] PCP - General Family Medicine 02/14/17 Rope Laying Machine Operator Relationship Specialty Start Date End Date KalyantyroneCarson cordero DO [address], [place] [address] PCP - General Family Medicine 02/14/17 Rope Laying Machine Operator Relationship Specialty Start Date End Date KalyantyroneCarson cordero DO [address], [place] [address] PCP - General Family Medicine 02/14/17 Rope Laying Machine Operator Relationship Specialty Start Date End Date NealCarson [address], [place] [address] PCP - [facility] 02/14/17 Rope Laying Machine Operator Relationship Specialty Start Date End Date Carson Sullivan DO [address], [place] [address] PCP - [facility] 02/14/17 Rope Laying Machine Operator Relationship Specialty Start Date End Date Carson Sullivan DO [address], [place] [address] PCP - [facility] 02/14/17 Rope Laying Machine Operator Relationship Specialty Start Date End Date Carson Sullivan DO [address], [place] [address] [facility] 02/14/17 Goals (unrecognized section and content) Goals [...] BE BASED ON THE PRIMARY CLINICAL RECORDS. [facility]. provides no warranty or guarantee of the accuracy or completeness of information in this document.
[2024-10-29 14:02] LABS: Hematocrit 39.5 % (36.0-48.0); Hemoglobin 13.7 g/dL (12.0-16.0); Mean Corpuscular HGB Conc 34.7 g/dL (29.9-35.2); Mean Corpuscular Hemoglobin 32.3 pg (26.7-34.0); Mean Corpuscular Volume 93.2 fL (81.0-99.0); Platelet Count 270 10^3/uL (150-450); Red Blood Count 4.24 10^6/uL (4.20-5.40); White Blood Count 6.8 10^3/uL (4.0-11.0)
[2024-10-29 14:24] LABS: Protein Creatinine Ratio Urine 0.27; Total Protein Urine Random 8.9 mg/dL (<=11.9)
[2024-10-29 14:36] LABS: Glucose Urine UA NEGATIVE (NEGATIVE)
[2024-10-29 14:45] LABS: Albumin Level 4.5 g/dL (3.4-5.0); Anion Gap 17.4; Blood Urea Nitrogen 17.0 mg/dL (7.0-18.0); Calcium 9.1 mg/dL (8.5-10.1); Carbon Dioxide 21.8 mmol/L (21.0-32.0); Chloride 98 mmol/L (98-107); Estimated GFR (African America >60 (>=60 mL/min/1.73m^2); Estimated GFR (Non-African Ame 58 (>=60 mL/min/1.73m^2); Glucose 82 mg/dL (74-106); Magnesium 1.9 mg/dL (1.8-2.4); Potassium 4.2 mmol/L (3.5-5.1); Sodium 133 mmol/L (136-145); Uric Acid 4.0 mg/dL (2.6-6.0)
== END 2024-10-29 12:58 | disposition home or self-care (01) ==
PROVIDERS: PCP Family Medicine; Visit Provider Internal Medicine Nephrology
DX: E87.1 Hypo-osmolality and hyponatremia (principal); F17.210 Nicotine dependence, cigarettes, uncomplicated; N20.0 Calculus of kidney; E55.9 Vitamin D deficiency, unspecified; D64.9 Anemia, unspecified; N18.31 Chronic kidney disease, stage 3a
CPT/HCPCS: 36415; 80069; 81003; 82043; 82306; 82570; 83735; 83970; 84156; 84550; 85027

== ENCOUNTER 2024-12-19 13:05 | Outpatient (OUT) | payer MEDICARE, SELFPAY ==
--- OUTSIDE RECORDS SUMMARY | 2023-11-21 07:00 | XMS_ITS ---
Author Organization The [facility] in [place] Address [address] [place] [address] Care Team Providers Care Automatic Embroidery Machine Tender Name Role Phone Carson Sullivan DO Primary Care Provider Unavail Jon Rudolph Unavailable [phone] REASON FOR VISIT 1 YEAR-PULMONARY NODULES Encounters Encounter Location Date Provider Diagnosis Pulmonary Medicine [place] [address] [place] [address] 11/21/2023 Jon Villatoro Plan Of Treatment No Information Progress Notes * SHAGGYLaquita SHOREricia ADOB: (79 yo F)Acc No.[id number]:11/21/2023 UNLOCKED PROGRESS NOTE Follow Up Patient: Drea NELSON Provider: Mehdi Villatoro DO :1945 A ge:78 Y S ex:Female Date:11/21/2023 Address:[address] [place] [address] [address] [facility] [id number] Pcp:Carson Sullivan DO Subjective: * Chief Complaints: * 1 . 1 YEAR-PULMONARY NODULES. * Medical History: Objective: * Vitals: Assessment: Plan: * Treatment: * * Electronic signature of Shonna Villatoro DO on 12/19/2024 at 01:09 PM EDT Sign off status: Pending Visit Status: R /S By O/P (Rescheduled by Office/Provider) * Provider: Mehdi Villatoro DO Date: 0 11/21/2023 Generated for Isha cordero/Marleny/Porfirioitting on: 1 01:09 PM EDT
--- OUTSIDE RECORDS SUMMARY | 2023-11-23 05:00 | XMS_ITS ---
Author Organization The [facility] in [place] Address [address] [place] [address] Care Team Providers Care Brass Plater Name Role Phone Carson Sullivan DO Primary Care Provider Unavail Jon Rudolph Unavailable [phone] REASON FOR VISIT 1 YEAR-PULMONARY NODULES Encounters Encounter Location Date Provider Diagnosis Pulmonary Medicine [place] [address] [place] [address] 11/23/2023 Jon Villatoro Plan Of Treatment No Information Progress Notes * Mike TELLEZia ADOB: (79 yo F)Acc No.[id number]:11/23/2023 UNLOCKED PROGRESS NOTE Follow Up Patient: Drea NELSON Provider: Mehdi Villatoro DO :1945 A ge:78 Y S ex:Female Date:11/23/2023 Address:[address] [place] [address] [address] [facility] [id number] Pcp:Carson Sullivan DO Subjective: * Chief Complaints: * 1 . 1 YEAR-PULMONARY NODULES. * Medical History: Objective: * Vitals: Assessment: Plan: * Treatment: * * Electronic signature of Shonna Villatoro DO on 12/19/2024 at 01:07 PM EDT Sign off status: Pending Visit Status: R /S (Rescheduled) * Provider: Mehdi Villatoro DO Date: 0 11/23/2023 Generated for Isha cordero/Marleny/Nasir on: 1 01:07 PM EDT
--- OUTSIDE RECORDS SUMMARY | 2024-12-19 13:09 | XMS_ITS | Patient Health Record ---
Author Organization [facility] [place] Address [address] [place] [address] Care Team Providers Care Wool Buyer Name Role Phone Theo Sullivan DOnis Primary Care Provider Unavail able Jon Garcia Unavailable [phone] Allergies Allergen (clinical drug ingredient) Drug/Non Drug Allergy documented on EMR Reaction Allergy Type Onset Date Status duloxetine Cymbalta Kidney Failure Drug Allergy Active hydrochlorothiazide Hydrochlorothiazide Itching & Rash Drug Allergy Active nickel Nickel hives Allergy Active Substance with 2-snzgxzl-1-methylgluta ryl-coenzyme A reductase inhibitor mechanism of action (substance) Statins Myalgia Drug Allergy Active Results Component Value Reference Range Notes CT Chest w/o contrast Reviewed date:05/22/2024 04:12:46 PM Interpretation: Performing Lab: Notes/Report: CT chest wo con Reviewed date:05/22/2024 05:20:59 PM Interpretation: Performing Lab: Notes/Report: Source Facility: [place] [address] [place] [address] CT Scan Report Signed Patient: DREA COON MR#: [id number] : 1945 Acct:[id number] Age/Sex: 79 / F ADM Date: 05/22/24 Loc: CT Attending Dr: Jon Garcia D.O. Ordering Physician: Jon Garcia D.O. Date of Service: 05/22/24 Procedure(s): CT chest wo con Accession Number(s): [id number] cc: CARSON SULLIVAN [place] [address] Patient Name: DREA COON MRN: [id number] date: 1945 Sex: F Assigned Patient Location: CT Current Patient Location: CT Accession/Order Number: [id number] Exam Date: 05/22/2024 12:10 Report Date: 05/22/2024 15:56 At the request of: JON GARCIA DO Procedure: CT chest wo con CT CHEST WITHOUT IV CONTRAST: CLINICAL HISTORY: Multiple Pulmonary Nodules COMPARISON: CT chest 11/13/2023 as well as 11/20/2022. Lung screening CT 08/08/2022. TECHNIQUE: Spiral images were obtained through the chest without IV contrast. This CT exam was performed using one or more following dose reduction techniques: Automated exposure control, adjustment of the mA and/or kV according to patient size, or use of iterative reconstruction technique. FINDINGS: Mediastinum:Thoracic aorta demonstrate mild calcification without aneurysm. Pulmonary trunk appears nondilated. No pleural effusion. No lymphadenopathy. The esophagus is grossly unremarkable. Lungs:Emphysema. Diffuse bronchial wall thickening. Mild lung scarring. No consolidation pneumothorax or pleural effusion. No suspicious pulmonary nodule since the study. There appears to be a focal area of scarring involving the left lower lobe on series 4 image 51 measuring 8 mm grossly unchanged from the most recent study of 11/13/2023 and has improved since the lung screening CT of 08/08/2022. No new or enlarging suspicious pulmonary nodules are seen on today's study. Abd:No acute findings. Soft tissues/Bones: Soft tissues demonstrate no acute process. Osseous structures demonstrate degenerative change. CT/CT chest wo con IMPRESSION: Stable area of scarring involving the left lower lobe compared to the most recent study of 11/13/2023. No suspicious pulmonary nodule is seen on today's study. Impression dictated by: Ernie Belle Jr., D.O.05/22/2024 3:56 PM Dictation Location: [place] [address] Electronically authenticated by: [id number] Y Date: 05/22/2024 15:56 Dictated By: Ernie Belle M.D. Signed By: 05/22/24 1559 DD/ 1556 TD/TT: Deli Cutter Slicer: Reason For Referral No Information Medications Medication SIG (Take, Route, Frequency, Duration) Notes Start Date End Date Status Fexofenadine HCl 60 MG 1 tablet Orally T wice a day Active Sudafed 30 MG 2 tablets as needed Orally every 6 hrs Active Levothyroxine Sodium 112 MCG 1 tablet on an empty stomach in the morning Orally Once a day Active Super B Complex - as directed Orally Active Lidocaine 5 % PLACE 1 patch to the skin EVERY DAY NEEDED, remove and discard patch within 12 hours External; Duration: 10 Days Active Vitamin D-3 1000 UNIT 2 capsule Orally e very 6 hrs Active Lisinopril 40 MG 1 tablet Orally Once a day Active Omeprazole 20 MG 1 capsule Orally BID Active amLODIPine Besylate 10 MG 1 tablet Orall y Once a day Active oxyCODONE HCl 5 MG Oral; Duration: 30 Days Active Garth Aspirin EC Low Dose 81 MG 1 tablet Orally Once a day; Duration: 30 day(s) Active Probiotic - as directed Orally Active Calcium Magnesium Zinc 333-133-5 MG 1 tablet with meals Orally Three times a day Active Sertraline HCl 50 MG 1 tablet Orally Onc e a day Active Lutein 20 MG 1 capsule with a earline l Orally Once a day Active Metoprolol Succinate ER 25 MG 1 tablet Orally Once a day Active Acetaminophen ER 650 MG 2 tablets as nee ded Orally every 8 hrs Active Orono 3-6-9 Fatty Acids - as directed Orally Active Alendronate Sodium 70 MG Oral; Duration: 56 Days Active Immunizations Vaccine Route Administration Date Status Comme nts Flu, Fluad (12495) 65 yrs an d older, single-dose syringe (6658-7917) Unknown 12/28/2023 Administered Flu, Fluzone (53055) 6 mos+, single-dose syringe/vial (1603-9668) Unknown 11/25/2019 Administered Pneumococcal (Pneumovax 23) Unknown 03/14/2016 Administ ered Pneumococcal (Prevnar 13) Unknown 01/28/2013 Administer ed Tdap (Boostrix) Unknown 04/10/2014 Administered Social History Tobacco Use: Social History Observation Description Date Details (start date - stop date) Current Smoker NA - NA Tobacco Control (Standard) Question Answer Notes Tobacco use: Current every day smoker Additional Findings: Tobacco user Heavy cigarett e smoker (20-39 cigs/day) Section Notes: : : : : : : : : Problems Problem Type SNOMED Code ICD Code Onset Dates Problem Status W/U Status Risk Notes Problem Chronic pain syndrome (179858554) Chronic pain syndrome (G89.4) Active confirmed Problem Centrilobular emphysema (51355504) Centrilobular emphysema (J43.2) Active confirmed Problem Displacement of lumbar intervertebral disc without myelopathy (40754599) Other intervertebral disc displacement, lumbar region (M51.26) Active confirmed Problem Fibromyalgia (398384086) Fibromyalgia (M79.7) Active confirmed Problem Post-laminectomy syndrome (61341859) Postlaminectomy syndrome, not elsewhere classified (M96.1) Active confirmed Problem Mental disorder caused by drug (331060219) Cigarette nicotine dependence with nicotine-induced disorder (F17.219) Active confirmed Problem Lumbosacral spondylosis without myelopathy (44279493) Spondylosis of lumbosacral region without myelopathy or radiculopathy (M47.817) Active confirmed Problem Multiple pulmonary nodules (355982669) Multiple pulmonary nodules (R91.8) Active confirmed Problem Tobacco user (094359485) Cigarette nicotine dependence, uncomplicated (F17.210) Active confirmed Vital Signs Heart Rate 103 /min 05/29/2024 Temperature 96.8 degrees Fahrenheit 05/29/2024 Respiratory Rate 18 /min 05/29/2024 Oximetry 95 % 05/29/2024 Blood pressure diastolic 78 mm Hg 05/29/2024 Height 62 in 05/29/2024 Blood pressure systolic 158 mm Hg 05/29/2024 Weight 147.6 lbs 05/29/2024 BMI 26.99 kg/m2 05/29/2024 Encounters Encounter Location Date Provider Diagnosis Pulmonary Medicine [place] [address] [place] [address] 10/28/2024 [facility] [place] [address] [place] [address] 11/05/2024 [facility] [place] [address] [place] [address] [facility] nodules R91.8 ; Centrilobular emphysema J43.2 and Cigarette nicotine dependence with nicotine-induced disorder F17.219 Assessments Encounter Date Diagnosis (ICD Code) Assessment Notes Treatment Notes Treatment Clinical Notes Section Notes 05/29/2024 Multiple pulmonary nodules (ICD-10 - R91.8) Suspicious GGO/scarring in LLL unchanged on F/U chest CT 05/22/2024 compared to 11/13/2023 and slightly improved compared to 11/20/2022. Still new compared to 2019. She remains high risk of neoplasm as she continues to smoke. Recommended repeating chest CT in 1 year to follow through with 2 years of monitoring, especially given the GGO nature of the scarring in the past - it is possible this could be a slow growing neoplasm like adenocarcinoma-i n-situ, with current Fleischner Society Guidelines recommending monitoring out 5 years. 05/29/2024 Centrilobular emphysema (ICD-10 - J43.2) Continues to have a daily productive cough of sputum. Still smoking. Exam with new rhonchi and palpable tactile fremitus, both in the bases. Patient voiced she is still not ready to begin any w/up or start any maintenance inhaler. She states she will continue with Mucinex daily. 05/29/2024 Cigarette nicotine dependence with nicotine-induced disorder (ICD-10 - F17.219) Patient was counseled again on the importance of smoking cessation, both for COPD and to reduce risk of lung cancer. Plan Of Treatment Pending Test Test Name Order Date XR Lumbar Spine Flex/Ext 07/11/2018 Insurance Providers Payer Name Payer Address Payer Phone Subscriber Number Group Number Insured Name Patient Relationship to Insured Coverage Start Date Coverage End Date [facility] [employer] ADV [address]AN [address] [address] [place] [address] [id number] Drea Roach Self - patient is the insured 8 Medical (General) History Medical History History ICD Code Hyperlipdemia Hypothyroidism Spinal Stenosis Centrilobular emphysema J43.2 Multiple pulmonary nodules R91.8 Cigarette nicotine dependence with nicot ine-induced disorder F17.219 Surgical History Surgery Date(Month/Year) Dental upper and lower augmentation 2003 Back Surgery L-3 L-4 L-5 S-1 2017 Laminectomy 1996 tonsillectomy and adenoidectomy Hysterectomy 1989 Breast Biopsy 1988 Appendectomy 1974 Bilateral Carpal tunnel release 1988 cataract surgery-bilateral
--- OUTSIDE RECORDS SUMMARY | 2024-12-19 13:09 | XMS_ITS | Patient Health Record ---
Author Organization [facility] Address [address] [place] [address] Care Team Providers Care Coil Machine Supervisor Name Role Phone Carson Sullivan Primary Care Provider Unavailsofiya BellNoah Unavailable [phone] Vinicio CANADA, Diamond [facility]available [facility] Reason For Referral No Information Social History Tobacco Use: Social History Observation Description Date Details (start date - stop date) Current Smoker NA - NA AUDIT-C (Standard) Question Answer Notes Did you have a drink contain ing alcohol in the past year? Yes How often did you have six o r more drinks on one occasion in the past year? Never (0 point) How many drinks did you have on a typical day when you were drinking in the past year? 1 or 2 drinks (0 point) How often did you have a dri nk containing alcohol in the past year? Never (0 point) Points 0 Interpretation Negative Tobacco Control (Standard) Question Answer Notes Tobacco use: Current smoker Problems Problem Type SNOMED Code ICD Code Onset Dates Problem Status W/U Status Risk Notes Problem Localized, primary osteoarthritis of the shoulder region (404427616) Primary osteoarthrit is, right shoulder (M19.011) Active confirmed Problem [id number] Primary osteoarthrit is, left shoulder (M19.012) Active confirmed Plan Of Treatment No Information Insurance Providers Payer Name Payer Address Payer Phone Subscriber Number Group Number Insured Name Patient Relationship to Insured Coverage Start Date Coverage End Date Medicare [employer] [address] [address] [place] [address] [id number] NORA OLIVERA Self - patient is the insured
--- OUTSIDE RECORDS SUMMARY | 2024-12-19 13:10 | XMS_ITS | Clinical Summary ---
Author Organization [facility] Address [address] [place] [address] Care Team Providers Care Rehab Director Occupational Therapist Name Role Phone Unavailable Primary Care Provider [...] Plan of Treatment Not on file Insurance [facility]
--- OUTSIDE RECORDS SUMMARY | 2024-12-19 13:11 | XMS_ITS | CCD ---
Author Organization [facility] Care Team Providers Care Line Locator Name Role Phone Bri Alonso Unavailable NEAL, DR CARSON Luciano Admitting Unavailable FURLONG, DR CARSON Luciano Attending Unavailable FURLONG, DR CARSON Luciano Consulting Unavailable FURLONG, DR CARSON Luciano Primary Care Unavailable BAKBRI EPPS Admitting Unavailable JOBY POLO Consulting Unavailable FURLONG, DR CARSON Luciano Primary Care Unavailable BAKLESLIESBRI Attending Unavailable BAKLESLIESBRI Consulting Unavailable JEREMIESBRI Consulting Unavailable MISC, DR BANKS Admitting Unavailable FURLONG, DR CARSON Luciano Primary Care Unavailable MISC, DR BANKS Attending Unavailable SABRINA MANUEL Attending Unavailable SABRINA MANUEL Admitting Unavailable SABRINA MANUEL Consulting Unavailable FURLOCONSUELO, DR CARSON Luciano Primary Care Unavailable SABRINA [...] Furlong DO, Carson G Primary Care Provider FURLONG, CARSON G Referring Unavailable FURLONG, CARSON [...] sources) hydroCHLOROthiazide; Translations: [HYDROCHLOROTHIAZIDE] Drug Allergy Itching [facility] (1 source) Sulfonamides (Antibiotic) Drug allergy (disorder) [facility] (3 sources) HMG-CoA reductase inhibitor Drug Allergy 024 [facility] (3 sources) hydroCHLOROthiazide Drug Allergy 023 Itching [facility] (6 sources) nickel sulfate; Translations: [NICKEL] Drug Allergy 023 Rash [facility] (20 sources) Sulfonamides (Antibiotic) Drug Intolerance 022 Photosensitivity [facility] (20 sources) Hmg-Coa Reductase Inhibitors (Statins); Translations: [YMQTYDG-VTG-UKC REDUCTASE INHIBITORS] Propensity to adverse reactions to drug (disorder) pain [facility] (3 sources) Sulfonamides (Antibiotic); Translations: [SULFA (SULFONAMIDE ANTIBIOTICS)] Propensity to adverse reactions to drug (disorder) [facility] (1 source) hydroCHLOROthiazide Drug Allergy [facility] (19 sources) DULoxetine; Translations: [DULOXETINE] Drug Allergy Other (See Comments) [facility] (20 sources) nickel Drug Allergy Rash [facility] Medications Current Medications Medication Drug Class(es) [...] Active alendronic acid 70 mg oral tablet (15 sources) Bisphosphonate Start: 04-09-2024 take 1 tablet by mouth every week Alendronate (Fosamax) 70 mg tablet Active 70 MG PO every week April 09, 2024 12:00am Start: 02-29-2024 End: 12-06-2024 take 1 tablet by mouth in the morning alendronate (FOSAMAX) 70 mg tablet Take 1 tablet (70 mg total) by mouth every 7 days. In a.m. with water on empty stomach, nothing else by mouth and remain upright for 30min 12 tablet 3 12/06/2024 Active amLODIPine 10 mg oral tablet (20 [...] 2018 12:00am take 1 tablet by nabeel th every twenty-four hours Aspirin 81 MG 1 tablet Orally Once a day for 30 day(s) Active B Qhlmgza-Hgfhfa-CA (Super B-Complex) tablet (3 sources) B Complex-Biotin -FA (Super B-Complex) tablet as directed Orally 0 Active 120 actuat budesonide 0.16 mg/actuat / formoterol fumarate 0.0048 mg/actuat / glycopyrrolate 0.009 mg/actuat metered dose inhaler (2 sources) Corticosteroid , beta2-Adrenerg ic Agonist Start: 025 take 2 puff(s) by inhalation at bedtime kyffhxninq-pqdwtosb-vpo moterol (BREZTRI AEROSPHERE) 160-9-4.8 mcg/actuation HFA aerosol inhaler Indications: Chronic obstructive pulmonary disease, unspecified COPD type ([facility]) Inhale 2 puffs in the morning and at bedtime. 10.7 g 2 12/06/2024 Active Calcium 600 + D 600-200 MG-UNIT (4 sources) take 1 tablet by mouth [...] TAB PO Daily February 07, 2018 12:00am xiocfss-bafuzggio-dxjs 333-133-5 MG per tablet (3 sources) calcium-magnesiu [...] 07, 2018 12:00am take 1 capsule by de ut every twenty-four hours Vitamin D3 50 MCG (2000 UT) 1 capsule Orally Once a day Active docosahexaenoic acid 120 mg / eicosapentaenoic acid 180 mg oral capsule (3 sources) omega-3 (fish oi l) 1000 MG capsule 1 capsule 1 (one) time each day at the same time 0 Active fluticasone propionate 0.05 mg/actuat metered dose nasal spray (20 sources) Corticosteroid Start: 3 End: 5 take 1 spray(s) nasal route in the morning fluticasone propionate (FLONASE) 50 mcg/actuation nasal spray Administer 1 spray into each nostril in the morning. 9.9 mL 5 12/06/2024 Active Start: 10-19-2022 take 1 spray(s) nasa [...] guaiFENesin 600 mg extended release oral tablet (3 sources) take 1 tablet by mouth every twelve hours as needed guaiFENesin (MUCINEX) 600 mg tablet extended release 12hr Take 1 tablet (600 mg total) by mouth every 12 (twelve) hours as needed. Active Iron (1 source) take 1 tablet by mouth once daily Iron 28 MG 1 tablet Orally Once a day for 30 day(s) Active lactobacillus acidophilus [id number] unt oral capsule (20 sources) Lactobacillus acidophilus (PROBIOTIC) 10 billion cell capsule Take 1 capsule by mouth See Admin Instructions. Active latanoprost 0.05 mg/ml ophthalmic solution (3 sources) Prostaglandin Analog Start: 10-02-19 take 1 drop(s) into the eye(s) once daily latanoprost (XALATAN) 0.005 % ophthalmic solution Administer 1 drop to both eyes nightly. 10/01/2024 Active levothyroxine sodium 0.112 mg oral tablet (20 sources) l-Thyroxine Start: 02-08-20 End: 07-02-19 take 1 tablet by mouth in the morning levothyroxine (SYNTHROID, LEVOTHROID) 112 MCG tablet TAKE 1 TABLET BY MOUTH IN THE MORNING 90 tablet 1 07/01/2024 Active take 1 tablet by nabeel once daily in the morning Levothyroxine Sodium 112 MCG 1 tablet on an empty stomach in the morning Orally Once a day for 30 day(s) Active lidocaine 0.05 mg/mg medicated patch (12 sources) Antiarrhythmic, Amide Local Anesthetic Start: 03-12-2024 [...] TAB PO Daily April 09, 2024 12:00am go-fsx-utudn-calcium carb-K1 400 mcg-500 mg calcium-20 mcg tablet (20 sources) Start: 05-02-2022 take 1 tablet by mouth once in the morning an-rzv-cxfwv-calcium carb-K1 400 mcg-500 mg calcium-20 mcg tablet Take 1 tablet by mouth in the morning. 90 tablet 05/02/2022 Active Start: 05-02-2022 take 1 tablet by nabeel th once in the morning vk-dgg-lygqw-calcium carb-K1 400 mcg-500 mg calcium-20 mcg tablet [...] 1 spray Q2-3 minutes as needed Active [place] 3 1000 MG (4 sources) take 1 capsule by mouth once daily [place] 3 1000 MG 1 capsule Orally Once a day for 30 day(s) Active omega-3 acid ethyl esters (fci) 1000 mg oral capsule (2 sources) Start: 02-08-20 take 1 capsule by mouth once daily [place]-3 Acid Ethyl Esters 1 gram Capsule Active 1000 MG PO Daily February 07, 2018 12:00am omeprazole 20 mg delayed release oral capsule (20 sources) Proton Pump Inhibitor Start: 06-07-19 End: 12-08-19 take 1 capsule by mouth in the morning omeprazole (PriLOSEC) 20 mg capsule Take 1 capsule (20 mg total) by mouth in the morning. 90 capsule 3 12/07/2024 Active Start: 02-07-2018 End: 06-06-2024 omeprazole (PriLOSEC) [...] PO Q4H as needed for Pain 60 February 15, 2018 2023 9:12am Do not [...] hrs 15 mg Not-Taking polyethylene glycol [id number] mg powder for oral solution (20 sources) [...] then take 1 tab for 3 days rosuvastatin calcium 5 mg oral tablet (17 sources) HMG-CoA Reductase Inhibitor Start: 12-28-2023 End: [...] 23, 2023 11:00pm take 1 capsule by [facility] every twenty-four hours Probiotic 250 MG 1 capsule Orally once a day for 30 days Active take 1 capsule by mouth every tw elve hours Probiotic 250 MG 1 capsule Orally Twice a day for 30 day(s) Active Super B-Complex - (4 sources) Super B-Complex - as directed Orally Active Super B-Complex - as directed Orally Not-Taking traZODone hydrochloride 100 mg oral tablet (19 sources) Serotonin Reuptake Inhibitor Start: 12-28-2023 End: [...] Discontinued (Therapy completed) take 1 capsule by [facility] three times daily as needed [...] e-prescription and drug interaction check* Feb, Not-Taking Fjrhqvvw-Oiu-Zylp-Fa -Vit K-Lut (Centrum Silver Women) 8 mg iron-400 mcg-300 mcg Tablet (2 sources) Start: 02-07-2018 End: 10-24-2023 take 1 tablet by mouth once daily Qfjaswnr-Dgv-Nyaf-Fa-Vit K-Lut (Centrum Silver Women) 8 mg iron-400 mcg-300 mcg Tablet Discontinued 1 TAB PO Daily February 07, 2018 12:00am October 24, 2023 9:57am Start: 02-07-2018 End: 10-24-2023 take 1 tablet by mouth once daily Aifadduv-Rvg-Umhi-Fa-Vit K-Lut (Centrum Silver Women) 8 mg iron-400 [...] daily. 30 patch 1 04/28/2023 06/06/2024 Discontinued tm4-tmm-uko-fish- aaqz-zlu-lmhb (MEGARED ADV TOTAL BODY REFRESH) [phone] mg capsule (20 sources) End: 06-06-2024 ch4-rce-yif-fish-k pwv-gzs-swkr (MEGARED ADV TOTAL BODY REFRESH) [phone] mg capsule Take by mouth. 06/06/2024 Discontinued (Dose adjustment) vf9-drm-ojn-fish -ykna-eom-asjb (MEGARED ADV TOTAL BODY REFRESH) [phone] mg capsule Take by mouth. Active potassium [...] Once a day 06/28/2023 Discontinued (Therapy completed) pseudoephedrine hydrochloride 30 mg oral tablet (16 sources) alpha-Adrenergic Agonist End: 12-06-2024 pseudoephedrine (SUDAFED) 30 mg tablet 12/06/2024 Discontinued (Therapy completed) take 2 tablets by [facility] every six hours as needed pseudoephedrine (SUDAFED) 30 mg tablet 2 tablets as needed Orally every 6 hrs Active Psyllium (1 source) Psyllium 100 % [...] [Chronic kidney disease, stage 3a] Onset: 06-28-2023 Chronic obstructive pulmonary disease and bronchiectasis (2 sources) Chronic obstructive lung disease; Translations: [Chronic obstructive pulmonary disease, unspecified] Onset: 12-06-2024 12-06-2024 Chronic Deficiency and other anemia (5 sources) Anemia, [...] Episodic Immunizations and screening for infectious disease (3 sources) Needs influenza immunization; Translations: [Encounter for immunization] Onset: 12-28-2023 12-28-2023 Episodic Mood disorders (20 sources) Mood disorders Onset: 12-28-2023 Resolved: 12-06-2024 12-28-2023 Other bone disease and musculoskeletal deformities [...] Interpretation Reference Range Facility COMPREHENSIVE METABOLIC PANE Lucas 06-06-2024 Albumin [Mass/Vol] 4.6 g/dL Normal 3.2-5.3 [facility] Comment on above: Performed By: #### C ROBERTO, 26971-2, THYR #### [facility] ([id number]) [address], [address] [place] [address] ALP [Catalytic activity/Vol] 78 U/L Normal 39-[address] [facility] Comment on above: Performed By: #### C ROBERTO, 46628-6, THYR #### [facility] ([id number]) [address], [address] [place] [address] ALT [Catalytic activity/Vol] 12 U/L Normal 0-[address] [facility] Comment on above: Performed By: #### C ROBERTO, 78910-5, THYR #### [facility] ([id number]) [address], [address] [place] [address] Anion gap [Moles/Vol] 13 mmol/L Normal 5-15 [facility] Comment on above: Performed By: #### C ROBERTO, 56956-4, THYR #### [facility] ([id number]) [address], [address] [place] [address] AST [Catalytic activity/Vol] 11 U/L Normal 0-[address] [facility] Comment on above: Performed By: #### Arlyn MEJIA, 60417-4, THYR #### [facility] ([id number]) [address], [address] [place] [address] Bilirubin [Mass/Vol] 0.3 mg/dL Normal 0.3-1.2 [facility] Comment on above: Performed By: #### Arlyn MEJIA, 47885-7, THYR #### [facility] ([id number]) [address], [address] [place] [address] Calcium [Mass/Vol] 9.6 mg/dL Normal 8.5-10.5 [facility] Comment on above: Performed By: #### Arlyn MEJIA, 79999-6, THYR #### [facility] ([id number]) [address], [address] [place] [address] Chloride [Moles/Vol] 102 mmol/L Normal 98-109 [facility] Comment on above: Performed By: #### Arlyn MEJIA, 35136-7, THYR #### [facility] ([id number]) [address], [address] [place] [address] CO2 [Moles/Vol] 20 mmol/L Low 22-[address] [facility] Comment on above: Performed By: #### Arlyn MEJIA, 45058-6, THYR #### [facility] ([id number]) [address], [address] [place] [address] Creatinine [Mass/Vol] 1.38 mg/dL High 0.40-1.00 [facility] Comment on above: Result Comment: METH OD TRACEABLE TO IDMS STANDARD Performed By: #### Arlyn MEJIA, 86036-7, THYR #### [facility] ([id number]) [address], [address] [place] [address] GFR/1.73 sq M.predicted rosa m g non-blacks MDRD (S/P/Bld) [Vol rate/Area] 39 mL/min/{1.73_m2} Low >[address] [facility] Comment on above: Result Comment: Reported eGFR is based on the CKD-EPI 2020 equation that does not use a race coefficient. Performed By: #### Arlyn MEJIA, 15404-2, THYR #### [facility] ([id number]) [address], [address] [place] [address] Glucose [Mass/Vol] 93 mg/dL Normal 65-99 [facility] Comment on above: Performed By: #### Arlyn MEJIA, 66361-7, THYR #### [facility] ([id number]) [address], [address] [place] [address] Potassium [Moles/Vol] 4.7 mmol/L Normal 3.5-5.0 [facility] Comment on above: Performed By: #### Arlyn MEJIA, 99147-9, THYR #### [facility] ([id number]) [address], [address] [place] [address] Protein [Mass/Vol] 7.3 g/dL Normal 6.0-8.0 [facility] Comment on above: Performed By: #### Arlyn MEJIA, 05495-2, THYR #### [facility] ([id number]) [address], [address] [place] [address] Sodium [Moles/Vol] 135 mmol/L Normal 134-146 [facility] Comment on above: Performed By: #### Arlyn MEJIA, 49975-8, THYR #### [facility] ([id number]) [address], [address] [place] [address] Urea nitrogen [Mass/Vol] 19 mg/dL Normal 5-[address] [facility] Comment on above: Performed By: #### Arlyn MEJIA, 38868-2, THYR #### [facility] ([id number]) [address], [address] [place] [address] Lipid 1996 panelon 5 Cholesterol [Mass/Vol] 229 mg/dL High 150-[address] [facility] Comment on above: Performed By: #### Arlyn MEJIA, 83755-3, THYR #### [facility] ([id number]) [address], [address] [place] [address] Cholesterol in HDL [Mass/Vol] 89 mg/dL Normal >[address] [facility] Comment on above: Result Comment: HDL <40 mg/dL - High Risk HDL > or = 40mg/dL- Desirable HDL >60 mg/dL - Negative Risk Performed By: #### Arlyn MEJIA, 01487-1, THYR #### [facility] ([id number]) [address], [address] [place] [address] Cholesterol in LDL [Mass/Vol] 121 mg/dL Normal <[address] [facility] Comment on above: Result Comment: LDL <100 mg/dL - Desirable LDL >160 mg/dL - High Risk Performed By: #### Arlyn MEJIA, 24151-3, THYR #### [facility] ([id number]) [address], [address] [place] [address] Cholesterol in VLDL [Mass/Vol] 19 mg/dL Normal 0-[address] [facility] Comment on above: Performed By: #### Arlyn MEJIA, 25359-5, THYR #### [facility] ([id number]) [address], [address] [place] [address] CHOLESTEROL:HDL 2.6 Normal 1.0-5.[address] [facility] Comment on above: Performed By: #### Arlyn MEJIA, 20170-0, THYR #### [facility] ([id number]) [address], [address] [place] [address] Triglyceride [Mass/Vol] 94 mg/dL Normal 27-150 [facility] Comment on above: Performed By: #### Arlyn MEJIA, 43246-4, THYR #### [facility] ([id number]) [address], [address] [place] [address] THYROID PROFILEon 06-06-2024 Free T4 [Mass/Vol] 1.00 ng/dL Normal 0.61-1.60 [facility] Comment on above: Performed By: #### Arlyn MEJIA, 67475-0, THYR #### [facility] ([id number]) [address], [address] [place] [address] TSH 1.75 uIU/mL Normal 0.49-4.[address] [facility] Comment on above: Performed By: #### C [place], 08046-3, THYR #### [facility] ([id number]) [address], [address] [place] [address] Erythrocyte distribution wid th Auto (RBC) [Ratio]on 04-02-2024 Erythrocyte distribution wid th (RBC) [Ratio] Erythrocyte distribution width [Ratio] by Automated count 11.0-15.0 [facility] Estimated glomerular filtrat ion rate (GFR) non- Americanon 04-02-2024 GFR/1.73 sq M.predicted rosa m g non-blacks MDRD (S/P/Bld) [Vol rate/Area] Estimated glomerular filtration rate (GFR) non- Low >=60 mL/min/1.7 3m 2 [facility] Hematocrit Auto (Bld) [Volum e fraction]on 04-02-2024 Hematocrit (Bld) [Volume fraction] Hematocrit [Volume Fraction] of Blood by Automated count 36.0-48.0 [facility] Hemoglobin [Mass/volume] in Bloodon 04-02-2024 Hemoglobin (Bld) [Mass/Vol] Hemoglobin [Mass/volume] in Blood 12.0-16.0 [facility] Laboratory - Chemistry and C hemistry - challengeon 04-02-2024 Albumin [Mass/Vol] 3.8 g/dL 3.4-5.[address] [facility] Calcium [Mass/Vol] 8.9 mg/dL 8.5-10.[address] [facility] Chloride [Moles/Vol] 101 mmol/L 98-107 [facility] CO2 [Moles/Vol] 23.4 mmol/L 21.0-32.0 [facility] Creatinine [Mass/Vol] 1.31 mg/dL High 0.55-1.02 [facility] GFR/1.73 sq M.predicted MDRD (S/P/Bld) [Vol rate/Area] 48 mL/min/{1.73_m2} Low >=60 mL/min/1.7 3m 2 [facility] Glucose [Mass/Vol] 92 mg/dL 74-[address] [facility] Magnesium [Mass/Vol] 2.1 mg/dL 1.8-2.4 [facility] Potassium [Moles/Vol] 4.3 mmol/L 3.5-5.1 [facility] Sodium [Moles/Vol] 132 mmol/L Low 136-[address] [facility] Urate [Mass/Vol] 4.9 mg/dL 2.6-6.0 [facility] Urea nitrogen [Mass/Vol] 19.0 mg/dL High 7.0-18.0 [facility] Urea nitrogen/Creatinine [Ma ss ratio] 14.5 mg/mg [facility] Bilirubin Ql (U) Negative NEGATIVE [facility] Glucose (U) [Mass/Vol] Negative NEGATIVE [facility] Ketones Ql (U) Negative NEGATIVE [facility] pH (U) 6.0 [pH] 5.0-9.0 [facility] Sodium (U) [Moles/Vol] 72 mmol/L 30-90 [facility] Specific gravity (U) [Rel density] 1.015 1.005-1.02 5 [facility] Urobilinogen Qn (U) 0.2 {Drew'U}/dL 0.2-1.0 [facility] Laboratory - Specimen inform ationon 04-02-2024 Appearance (U) CLEAR CLEAR [facility] Color (U) YELLOW YELLOW [facility] Laboratory - Urinalysison Leukocyte esterase Test stri p Ql (U) Negative NEGATIVE [facility] Nitrite Ql (U) Negative NEGATIVE [facility] Protein (U) [Mass/Vol] 12.3 mg/dL High <=11.9 [facility] Protein Ql (U) Negative NEG/TRACE [facility] Leukocytes [#/volume] correc di for nucleated erythrocytes in Blood by Automated counon 04-02-2024 WBC corrected for nucl RBC A uto (Bld) [#/Vol] Leukocytes [#/volume] corrected for nucleated erythrocytes in Blood by Automated coun 4.0-11.0 [facility] MCH Auto (RBC) [Entitic mass ]on 04-02-2024 MCH (RBC) [Entitic mass] MCH [Entitic mass] by Automated count 26.7-34.0 [facility] MCHC Auto (RBC) [Mass/Vol]on 04-02-2024 MCHC (RBC) [Mass/Vol] MCHC [Mass/volume] by Automated count 29.9-35.2 [facility] MCV Auto (RBC) [Entitic vol] on 04-02-2024 MCV (RBC) [Entitic vol] MCV [Entitic volume] by Automated count 81.0-99.0 [facility] Microalbumin [Mass/volume] i n Urineon 04-02-2024 Albumin DL <= 20 mg/L (U) [Mass/Vol] Microalbumin [Mass/volume] in Urine <=30.0 [facility] No Panel Informationon 04-02 25-Hydroxy Vitamin D Total 41.1 ng/mL [facility] Comment on above: <20 ng/mL Vit D defi cient20-<30 ng/mL Vit D sofpzqzmxxhh81-679 ng/mL Vit D sufficient>100 ng/mL Potential Toxicity Parathyroid Hormone (Intact) 45 pg/mL 15-65 [facility] Comment on above: Performed at: [facility] [address] [id number] Director: Billy Patel PhD, Phone: [phone] Phosphorus Level 3.2 mg/dL 2.6-4.7 [facility] Urine Occult Blood Negative NEGATIVE [facility] Urine Osmolality 432 mOsmol/kg . [facility] Comment on above: 24 hr : 300 - 900 Ra ndom: 50 - 1400 After 12hr fluid restriction: >850Performed at: - [facility] [address] [id number] Director: Rick Law MD, Phone: [phone] Urine Random Creatinine 76.79 mg/dL 20.0 0-300. 00 [facility] Platelet mean volume Auto (B ld) [Entitic vol]on 04-02-2024 Platelet mean volume (Bld) [Entitic vol] Platelet mean volume [Entitic volume] in Blood by Automated count 9.5-13.5 [facility] Platelets Auto (Bld) [#/Vol] on 04-02-2024 Platelets (Bld) [#/Vol] Platelets [#/volume] in Blood by Automated count 150-450 [facility] RBC Auto (Bld) [#/Vol]on RBC (Bld) [#/Vol] Erythrocytes [#/volume] in Blood by Automated count Low 4.20-5.40 [facility] Serum or plasma anion gap de terminationon 04-02-2024 Anion gap [Moles/Vol] Serum or plasma anion gap determination [facility] Urine protein/creatinine rat ioon 04-02-2024 Protein/Creatinine (U) [Ratio] Urine protein/creatinin e ratio [facility] Erythrocyte distribution wid th Auto (RBC) [Ratio]on 10-17-2023 Erythrocyte distribution wid th (RBC) [Ratio] 13.5 % 11.0-15.0 [facility] Estimated glomerular filtrat ion rate (GFR) non- Americanon 10-17-2023 GFR/1.73 sq M.predicted rosa m g non-blacks MDRD (S/P/Bld) [Vol rate/Area] 43 mL/min/{1.73_m2} Low >=60 [facility] Globulin Calc (S) [Mass/Vol] on 10-17-2023 Globulin (S) [Mass/Vol] 3.4 g/dL [facility] Hematocrit Auto (Bld) [Volum e fraction]on 10-17-2023 Hematocrit (Bld) [Volume fraction] 38.7 % 36.0-48.0 [facility] Hemoglobin [Mass/volume] in Bloodon 10-17-2023 Hemoglobin (Bld) [Mass/Vol] 12.8 g/dL 12.0-16. 0 [facility] Laboratory - Chemistry and C hemistry - challengeon 10-17-2023 Albumin [Mass/Vol] 4.0 g/dL 3.4-5.[address] [facility] ALP [Catalytic activity/Vol] 94 U/L 46-116 [facility] ALT [Catalytic activity/Vol] 23 U/L 14-59 [facility] AST [Catalytic activity/Vol] 10 U/L Low 15-37 [facility] Bilirubin [Mass/Vol] 0.4 mg/dL 0.2-1.0 [facility] Calcium [Mass/Vol] 9.3 mg/dL 8.5-10.[address] [facility] Chloride [Moles/Vol] 96 mmol/L Low 98-107 [facility] CO2 [Moles/Vol] 26.8 mmol/L 21.0-32.0 [facility] Creatinine [Mass/Vol] 1.21 mg/dL High 0.55-1.02 [facility] GFR/1.73 sq M.predicted MDRD (S/P/Bld) [Vol rate/Area] 52 mL/min/{1.73_m2} Low >=60 [facility] Glucose [Mass/Vol] 109 mg/dL High 74-[address] [facility] Magnesium [Mass/Vol] 2.0 mg/dL 1.8-2.4 [facility] Potassium [Moles/Vol] 3.7 mmol/L 3.5-5.1 [facility] Protein [Mass/Vol] 7.4 g/dL 6.4-8.[address] [facility] Sodium [Moles/Vol] 130 mmol/L Low 136-[address] [facility] Urea nitrogen [Mass/Vol] 20.0 mg/dL High 7.0-18.0 [facility] Urea nitrogen/Creatinine [Ma ss ratio] 16.5 mg/mg [facility] Bilirubin Ql (U) Negative NEGATIVE [facility] Glucose (U) [Mass/Vol] Negative NEGATIVE [facility] Ketones Ql (U) TRACE mg/dL Abnormal NEGATIVE [facility] pH (U) 6.0 [pH] 5.0-9.0 [facility] Specific gravity (U) [Rel density] 1.015 1.005-1.02 5 [facility] Urobilinogen Qn (U) 0.2 {Drew'U}/dL 0.2-1.0 [facility] Laboratory - Specimen inform ationon 10-17-2023 Appearance (U) SL CLOUDY CLEAR [facility] Color (U) YELLOW YELLOW [facility] Laboratory - Urinalysison Leukocyte esterase Test stri p Ql (U) Negative NEGATIVE [facility] Nitrite Ql (U) Negative NEGATIVE [facility] Protein (U) [Mass/Vol] 23.3 mg/dL High <=11.9 [facility] Ql (U) Negative NEG/TRACE [facility] Leukocytes [#/volume] correc di for nucleated erythrocytes in Blood by Automated counon 10-17-2023 WBC corrected for nucl RBC A uto (Bld) [#/Vol] 6.7 10 3/uL 4.0-11.0 [facility] MCH Auto (RBC) [Entitic mass ]on 10-17-2023 MCH (RBC) [Entitic mass] 32.7 pg 26.7-34.0 [facility] MCHC Auto (RBC) [Mass/Vol]on 10-17-2023 MCHC (RBC) [Mass/Vol] 33.1 g/dL 29.9-35.[address] [facility] MCV Auto (RBC) [Entitic vol] on 10-17-2023 MCV (RBC) [Entitic vol] 98.7 fL 81.0-99.0 F [facility] No Panel Informationon 10-16 25-Hydroxy Vitamin D Total 47.1 ng/mL [facility] Comment on above: <20 ng/mL Vit D defi cient20-<30 ng/mL Vit D lvdymflwncub49-942 ng/mL Vit D sufficient>100 ng/mL Potential Toxicity Parathyroid Hormone (Intact) 24 pg/mL 15-65 [facility] Comment on above: Performed at: - Apartment List [address] [id number] Director: Billy Patel PhD, Phone: [phone] Urine Occult Blood Negative NEGATIVE [facility] Urine Random Creatinine 116.48 mg/dL 20.0 0-300. 00 [facility] Platelet mean volume Auto (B ld) [Entitic vol]on 10-17-2023 Platelet mean volume (Bld) [Entitic vol] 9.2 fL Low 9.5-13.5 [facility] Platelets Auto (Bld) [#/Vol] on 10-17-2023 Platelets (Bld) [#/Vol] 364 10 3/uL 150-450 [facility] RBC Auto (Bld) [#/Vol]on RBC (Bld) [#/Vol] 3.92 10 6/uL Low 4.20-5.40 [facility] Serum or plasma albumin/glob ulin mass ratioon 10-17-2023 Albumin/Globulin [Mass ratio] 1.2 {ratio} [facility] Serum or plasma anion gap de terminationon 10-17-2023 Anion gap [Moles/Vol] 10.9 mmol/L Fi [facility] Urine protein/creatinine rat ioon 10-17-2023 Protein/Creatinine (U) [Ratio] 0.20 [facility] BASIC METABOLIC PANLon 06-27 Anion gap [Moles/Vol] 13 mmol/L Normal 5-15 [facility] Comment on above: Performed By: #### B ROBERTO, THYR #### [facility] ([id number]) [address] [place] [address] Calcium [Mass/Vol] 9.9 mg/dL Normal 8.5-10.5 [facility] Comment on above: Performed By: #### B ROBERTO, THYR #### [facility] ([id number]) [address], [address] [place] [address] Chloride [Moles/Vol] 100 mmol/L Normal 98-109 [facility] Comment on above: Performed By: #### B ROBERTO, THYR #### [facility] ([id number]) [address], [address] [place] [address] CO2 [Moles/Vol] 23 mmol/L Normal 22-[address] [facility] Comment on above: Performed By: #### B ROBERTO, THYR #### [facility] ([id number]) [address], [address] [place] [address] Creatinine [Mass/Vol] 1.20 mg/dL High 0.40-1.00 [facility] Comment on above: Result Comment: METH OD TRACEABLE TO IDMS STANDARD Performed By: #### Becki MEJIA, THYR #### [facility] ([id number]) [address], [facility] [address] [place] [address] GFR/1.73 sq M.predicted rosa m g non-blacks MDRD (S/P/Bld) [Vol rate/Area] 47 mL/min/{1.73_m2} Low >[address] [facility] Comment on above: Result Comment: Reported eGFR is based on the CKD-EPI 2020 equation that does not use a race coefficient. Performed By: #### Becki MEJIA, THYR #### [facility] ([id number]) [address], [address] [place] [address] Glucose [Mass/Vol] 86 mg/dL Normal 65-99 [facility] Comment on above: Performed By: #### Becki MEJIA, THYR #### [facility] ([id number]) [address] [address] [place] [address] Potassium [Moles/Vol] 4.3 mmol/L Normal 3.5-5.0 [facility] Comment on above: Performed By: #### Becki MEJIA, THYR #### [facility] ([id number]) [address] [address] [place] [address] Sodium [Moles/Vol] 136 mmol/L Normal 134-146 [facility] Comment on above: Performed By: #### Becki MEJIA, THYR #### [facility] ([id number]) [address] [address] [place] [address] Urea nitrogen [Mass/Vol] 26 mg/dL Normal 5-[address] [facility] Comment on above: Performed By: #### Becki MEJIA, THYR #### [facility] ([id number]) [address] [place] [address] Basic Metabolic Panelon 06-05 Anion gap [Moles/Vol] 13 mmol/L 5 - 15 mmol/L [facility] Calcium [Mass/Vol] 9.9 mg/dL 8.5 - 10. 5 mg/dL [facility] Chloride [Moles/Vol] 100 mmol/L 98 - 10 9 mmol/L [facility] CO2 [Moles/Vol] 23 mmol/L 22 - 32 mmol/L [facility] Creatinine [Mass/Vol] 1.20 mg/dL High 0.40 - 1.00 mg/dL [facility] Comment on above: METHOD TRACEABLE TO [facility] STANDARD eGFR (CKD-EPI)non-race dependent 47 Low - PINF [facility] Comment on above: Reported eGFR is based on the CKD-EPI 2020 equation that does not use a race coefficient. Glucose [Mass/Vol] 86 mg/dL 65 - 99 mg/dL [facility] Interpretation and review of laboratory results Abnormal [facility] Potassium [Moles/Vol] 4.3 mmol/L 3.5 - 5.0 mmol/L [facility] Sodium [Moles/Vol] 136 mmol/L 134 - 146 mmol/L [facility] Urea nitrogen [Mass/Vol] 26 mg/dL 5 - 27 mg/dL [facility] THYROID PROFILEon 06-28-2023 Free T4 [Mass/Vol] 1.14 ng/dL Normal 0.61-1.60 [facility] Comment on above: Performed By: #### B ROBERTO, THYR #### [facility] ([id number]) [address] [address] [place] [address] TSH 0.81 uIU/mL Normal 0.49-4.[address] [facility] Comment on above: Performed By: #### B ROBERTO, THYR #### [facility] ([id number]) [address] [place] [address] Thyroid profile includes TSH FT4on 06-28-2023 Free T4 [Mass/Vol] 1.14 ng/dL 0.61 - 1.60 ng/dL [facility] TSH Qn 0.81 m[IU]/L [facility] XR shoulder LT min 2V*on XR shoulder LT min 2V* [facility] [place] [address] [place] [address] XRay Report Signed Patient: Mike Tellez MR#: [id number] : 1945 Acct:[id number] Age/Sex: 78 / F ADM Date: 05/11/23 Loc: [facility] Room: Type: [facility] Attending Dr: Aden Baca DO Copies to: [...] Justin Lucas M.D.05/11/2023 2:24 PM Dictation Location: [place] [address] Transcribed By: [facility] 05/11/23 1424 Dictated By: Justin Lucas DO 05/11/23 1422 Signed By: 05/11/23 1424 Normal [facility] No Panel Informationon 04-07 [facility] Drug Screen, Urineon 024 Amphetamines Screen method >1000 ng/mL Ql (U) Negative Negative^N egative [facility] Comment on above: AMPH/METH screening cut off = 1000 ng/mL Barbiturates Screen Ql (U) Negative N egative^N egative [facility] Comment on above: Barbiturates screeni ng cut off value = 200 ng/mL Benzodiazepines Ql (U) Negative Negat iggy^N [facility] Comment on above: Benzodiazepines scre ening cut off value = 200 ng/mL Cocaine Ql (U) Negative Negative^N [facility] Comment on above: Cocaine screening cu t off value = 300 ng/mL Interpretation and review of laboratory results Abnormal [facility] Methadone Screen Ql (U) Negative Nega tive^N [facility] Comment on above: Methadone screening cut off value = 300 ng/mL. Methylenedioxymethamphetamin e Screen Ql (U) Negative Negative^N [facility] Comment on above: Ecstasy screening cu t off value = 500 ng/mL This report is intended for use in clinical monitoring or management of patients. Opiates Screen Ql (U) Positive Abnormal Negati ve^N [facility] Comment on above: Confirmation availab le upon request. Opiates screening cut off value = 300 ng/mL NOTE: This test is used for the detection of codeine, hydrocodone (>1000 ng/mL), morphine and hydromorphone (>900 ng/mL) in urine. oxyCODONE Ql (U) Negative Negative^N [facility] Comment on above: Oxycodone screening cut off value = 300 ng/mL NOTE: This test is used for the detection of oxycodone and oxymorphone in urine. Phencyclidine Screen method >25 ng/mL Ql (U) Negative Negative^N [facility] Comment on above: Phencyclidine screen ing cut off value = 25 ng/mL Tetrahydrocannabinol Screen method >50 ng/mL Ql (U) Negative Negative^N [facility] Comment on above: Cannabinoids/THC scr eening cut off value = 50 ng/mL [facility] PTH INTACTon 06-02-2022 PTH, Intact 14 pg/mL Critically low 15-65 [facility] Comment on above: Performed By: #### P THINT ####[facility] [address] [place], [place] [address]GxAlex Bailey HEMOGRAM AND PLATELon 2022 Hematocrit (Bld) [Volume fraction] 32.0 % Critically low 36.0-48.0 [facility] Comment on above: Performed By: #### H H ####[facility] [address] [place] [address]Dr. Asohk Bailey Hemoglobin (Bld) [Mass/Vol] 10.6 g/dL Critically low 12.0 -16.0 [facility] Comment on above: Performed By: #### H H ####[facility] [address] [place] [address]Dr. Ashok Bailey MCH (RBC) [Entitic mass] 31.4 pg Normal 26.7-34.0 [facility] Comment on above: Performed By: #### H H ####[facility] [address] [place] [address]Dr. Ashok Bailey MCHC (RBC) [Mass/Vol] 33.1 g/dL Normal 29.9-35.2 [facility] Comment on above: Performed By: #### H H ####[facility] [address] [place], [place] [address]DrAlex Ashok Bailey MCV (RBC) [Entitic vol] 94.7 fL Normal 81.0-99.0 [facility] Comment on above: Performed By: #### H H ####[facility] [address] [place], [place] [address]DrAlex Ashok Bailey PLT 345 103/ul Normal 150-450 [facility] Comment on above: Performed By: #### H H ####[facility] [address] [place], [place] [address]DrAlex Ashok Bailey RBC 3.38 106/ul Critically low 4.20-5.40 [facility] Comment on above: Performed By: #### H H ####[facility] [address] [place] [address]DrAlex Richterandrew Leo WBC 8.4 103/ul Normal 4.0-11.0 [facility] Comment on above: Performed By: #### H H ####[facility] [address] [place], [place] [address]DrAlex Richterandrew Leo MAGNESIUMon 06-01-2022 Magnesium [Mass/Vol] 1.8 mg/dL Normal 1.8-2.4 [facility] Comment on above: Performed By: #### C MP, URIC, MG, PHOS ####[facility] [address] [place], [place] [address]Dr. Ashok Bailey PHOSPHORUSon 06-01-2022 Phosphate [Mass/Vol] 4.0 mg/dL Normal 2.6-4.7 [facility] Comment on above: Performed By: #### C MP, URIC, MG, PHOS ####[facility] [address] [place], [place] [address]Dr. Ashok Bailey PROF 14(COMP METB)on 023 Albumin [Mass/Vol] 3.8 g/dL Normal 3.4-5.0 [facility] Comment on above: Performed By: #### C MP, URIC, MG, PHOS ####[facility] [address] [place], [place] [address]Dr. Ashok Bailey Albumin/Globulin [Mass ratio] 1.1 {ratio} Normal [facility] Comment on above: Performed By: #### C MP, URIC, MG, PHOS ####[facility] [address] [place], [place] [address]Dr. Ashok Bailey ALP [Catalytic activity/Vol] 96 U/L Normal 46-116 [facility] Comment on above: Performed By: #### C MP, URIC, MG, PHOS ####[facility] [address] [place], [place] [address]Dr. Ashok Bailey ALT [Catalytic activity/Vol] 17 U/L Normal 14-59 [facility] Comment on above: Performed By: #### C MP, URIC, MG, PHOS ####[facility] [address] [place] [address]Dr. Ashok Bailey Anion gap [Moles/Vol] 15.4 mmol/L Normal [facility] Comment on above: Performed By: #### C MP, URIC, MG, PHOS ####[facility] [address] [place], [place] [address]Dr. Ashok Bailey AST [Catalytic activity/Vol] 15 U/L Normal 15-37 [facility] Comment on above: Performed By: #### C MP, URIC, MG, PHOS ####[facility] [address] [place] [address]Dr. Ashok Bailey Bilirubin [Mass/Vol] 0.3 mg/dL Normal 0.2-1.0 [facility] Comment on above: Performed By: #### C MP, URIC, MG, PHOS ####[facility] [address] [place] [address]Dr. Ashok Bailey Calcium [Mass/Vol] 9.1 mg/dL Normal 8.5-10.1 [facility] Comment on above: Performed By: #### C MP, URIC, MG, PHOS ####[facility] [address] [place], [place] [address]Dr. Ashok Bailey Chloride [Moles/Vol] 103 mmol/L Normal 98-107 [facility] Comment on above: Performed By: #### C MP, URIC, MG, PHOS ####[facility] [address] [place], [place] [address]Dr. Ashok Bailey CO2 [Moles/Vol] 24.9 mmol/L Normal 21.0-32.0 [facility] Comment on above: Performed By: #### C MP, URIC, MG, PHOS ####[facility] [address] [place], [place] [address]Dr. Ashok Bailey Creatinine [Mass/Vol] 1.35 mg/dL Critically high 0.55-1.02 [facility] Comment on above: Performed By: #### C MP, URIC, MG, PHOS ####[facility] [address] [place], [place] [address]Dr. Ashok Bailey EGFR-AF SRI LANKAN 46 mL/min/1.73m2 Critically low >=60 [facility] Comment on above: Performed By: #### C MP, URIC, MG, PHOS ####[facility] [address] [place], [place] [address]Dr. Ashok Bailey EGFR-NON AF SRI LANKAN 38 mL/min/1.73m2 Critically low >=60 [facility] Comment on above: Performed By: #### C MP, URIC, MG, PHOS ####[facility] [address] [place] [address]Dr. Ashok Bailey Globulin (S) [Mass/Vol] 3.4 g/dL Normal T [facility] Comment on above: Performed By: #### C MP, URIC, MG, PHOS ####[facility] [address] [place] [address]Dr. Neelamlan Bailey Glucose [Mass/Vol] 86 mg/dL Normal 74-106 [facility] Comment on above: Performed By: #### C MP, URIC, MG, PHOS ####[facility] [address] [place], [place] [address]Dr. Ashok Bailey Potassium [Moles/Vol] 4.3 mmol/L Normal 3.5-5.1 [facility] Comment on above: Performed By: #### C MP, URIC, MG, PHOS ####[facility] [address] [place], [place] [address]Dr. Ashok Bailey Protein [Mass/Vol] 7.2 g/dL Normal 6.4-8.2 [facility] Comment on above: Performed By: #### C MP, URIC, MG, PHOS ####[facility] [address] [place], [place] [address]Dr. Ashok Bailey Sodium [Moles/Vol] 139 mmol/L Normal 136-145 [facility] Comment on above: Performed By: #### C MP, URIC, MG, PHOS ####[facility] [address] [place], [place] [address]Dr. Neelamlan Bailey Urea nitrogen [Mass/Vol] 20.0 mg/dL Critically high 7.0-18 .0 [facility] Comment on above: Performed By: #### C MP, URIC, MG, PHOS ####[facility] [address] [place] [address]Dr. Ashok Bailey Urea nitrogen/Creatinine [Ma ss ratio] 14.8 mg/mg Normal [facility] Comment on above: Performed By: #### C MP, URIC, MG, PHOS ####[facility] [address] [place] [address]Dr. Ashok Bailey UA RANDOMon 06-01-2022 Bilirubin Ql (U) Negative Normal NEGATIVE [facility] Comment on above: Performed By: #### U A #### [facility] [address] [place] [address] Dr. Ashok Bailey Clarity (U) CLEAR Normal CLEAR [facility] Comment on above: Performed By: #### U A #### [facility] [address] [place] [address] Dr. Ashok Bailey Color (U) LT. YELLOW Normal YELLOW [facility] Comment on above: Performed By: #### U A #### [facility] [address] [place] [address] Dr. Ashok Bailye Glucose Ql (U) Negative Normal NEGATIVE [facility] Comment on above: Performed By: #### U A #### [facility] [address] [place] [address] Dr. Ashok Bailey Hemoglobin Ql (U) Negative Normal NEGATIVE [facility] Comment on above: Performed By: #### U A #### [facility] [address] [place] [address] Dr. Ashok Bailey Ketones Ql (U) Negative Normal NEGATIVE [facility] Comment on above: Performed By: #### U A #### [facility] [address] [place] [address] Dr. Ashok Bailey LEUKOCYTES Negative Normal NEGATIVE [facility] Comment on above: Performed By: #### U A #### [facility] [address] [place] [address] Dr. Ashok Bailey Nitrite Ql (U) Negative Normal NEGATIVE [facility] Comment on above: Performed By: #### U A #### [facility] [address] [place] [address] Dr. Ashok Bailey pH (U) 6.0 [pH] Normal 5-9 [facility] Comment on above: Performed By: #### U A #### [facility] [address] [place] [address] [address] Ashok Bailey SPEC GRAVITY 1.010 Normal 1.005-<=1. 025 [facility] Comment on above: Performed By: #### U A #### [facility] [address] [place] [address] [address] Ashok Bailey UA PROTEIN Negative Normal NEGATIVE/ TRACE [facility] Comment on above: Performed By: #### U A #### [facility] [address] [place] [address] [address] Ashok Bailey Urobilinogen Qn (U) 0.2 {Drew'U}/dL Normal 0.2 - 1.0 [facility] Comment on above: Performed By: #### U A #### [facility] [address] [place] [address] Dr. Ashok Bailey URIC ACID SERUMon 06-01-2022 Urate [Mass/Vol] 3.9 mg/dL Normal 2.6-6.0 [facility] Comment on above: Performed By: #### C MP, URIC, MG, PHOS ####[facility] [address] [place] [address]Dr. Ashok Bailey URINE T PROTEIN CREAT RATIOo n 06-01-2022 Protein (U) [Mass/Vol] 14.0 mg/dL Critically high <=12.0 [facility] Comment on above: Performed By: #### U RTPCR #### [facility] [address] [place] [address] Dr. Ashok Bailey UR PROT CREAT RAT 0.28 Normal [facility] Comment on above: Performed By: #### U RTPCR #### [facility] [address] [place] [address] Dr. Ashok Bailey URINE CREAT 50.47 mg/dL Normal 20.00-300. 00 [facility] Comment on above: Performed By: #### U RTPCR #### [facility] [address] [place] [address] [address] Ashok Bailey VITAMIN D 25 OHon 06-01-2022 VIT D 25-OH 19.2 ng/mL Normal [facility] Comment on above: Performed By: #### F T4 #### [facility] [address] [place] [address] [address] [address] Ashok Bailey VIT D RANGES SEE BELOW Normal [facility] Comment on above: Result Comment: <20 ng/mL Vit D deficient 20 - <30 ng/mL Vit D insufficient 30 - 100 ng/mL Vit D sufficient >100 ng/mL Potential Toxicity Performed By: #### F T4 #### [facility] [address] [place], [place] [address] Dr. Ashok Bailey US KIDNEYSon 05-03-2022 US KIDNEYS US KIDNEYS EXAM DATE: 05/03/2022 7:10 AM MST COMPARISON: None available. INDICATION: Stage IV chronic kidney disease. TECHNIQUE: Real-time ultrasound scanning of the kidneys and bladder was performed by the golf ball marker. Ream Cutter static images are submitted for review. FINDINGS: [...] by: JOBY POLO Date: 2022-05-03 12:33 Normal [facility] FREE T4on 03-25-2022 Free T4 [Mass/Vol] 1.26 ng/dL Normal 0.76-1.46 [facility] Comment on above: Performed By: #### F T4 #### [facility] [address] [place], [place] [address] Dr. Ashok Bailey PROF CHEM 8 (BAS METB)on Anion gap [Moles/Vol] 17.6 mmol/L Normal Th [facility] Comment on above: Performed By: #### B MP, TSH ####[facility] [address] [place] [id number]. Ashok Bailey Calcium [Mass/Vol] 8.9 mg/dL Normal 8.5-10.1 [facility] Comment on above: Performed By: #### B ROBERTO, TSH ####[facility] [address] [place] [address]Dr. Ashok Bailey Chloride [Moles/Vol] 97 mmol/L Critically low 98-107 [facility] Comment on above: Performed By: #### B ROBERTO, TSH ####[facility] [address] [place] [address]DrAlex Bailey CO2 [Moles/Vol] 22.2 mmol/L Normal 21.0-32.0 [facility] Comment on above: Performed By: #### B ROBERTO, TSH ####[facility] [address] [place] [address]Dr. Ashok Bailey Creatinine [Mass/Vol] 2.42 mg/dL Critically high 0.55-1.02 [facility] Comment on above: Performed By: #### B ROBERTO, TSH ####[facility] [address] [place] [id number]. Ashok Bailey EGFR-AF SRI LANKAN 24 mL/min/1.73m2 Critically low >=60 [facility] Comment on above: Performed By: #### B ROBERTO, TSH ####[facility] [address] [place] [address]Dr. Ashok Bailey EGFR-NON AF SRI LANKAN 20 mL/min/1.73m2 Critically low >=60 [facility] Comment on above: Performed By: #### B ROBERTO, TSH ####[facility] [address] [place] [id number]. Ashok Bailey Glucose [Mass/Vol] 84 mg/dL Normal 74-106 [facility] Comment on above: Performed By: #### B MP, TSH ####[facility] [address] [place] [address]Dr. Ashok Bailey Potassium [Moles/Vol] 4.8 mmol/L Normal 3.5-5.1 [facility] Comment on above: Performed By: #### B MP, TSH ####[facility] [address] [place] [address]Dr. Ashok Bailey Sodium [Moles/Vol] 132 mmol/L Critically low 136-145 Th [facility] Comment on above: Performed By: #### B MP, TSH ####[facility] [address] [place] [address]Dr. Ashok Bailey Urea nitrogen [Mass/Vol] 43.0 mg/dL Critically high 7.0-18 .0 [facility] Comment on above: Performed By: #### B MP, TSH ####[facility] [address] [place] [id number]. Ashok Bailey Urea nitrogen/Creatinine [Ma ss ratio] 17.8 mg/mg Normal [facility] Comment on above: Performed By: #### B MP, TSH ####[facility] [address] [place] [id number]. Ashok Bailey TSHon 03-25-2022 TSH 2.368 uIU/mL Normal 0.358-3.74 0 [facility] Comment on above: Performed By: #### B MP, TSH ####[facility] [address] [place] [id number]. Ashok Bailey CPKon 11-12-2021 CK [Catalytic activity/Vol] 207 U/L Critically high 26- 192 [facility] Comment on above: Performed By: #### C MP, CK, TSH, LIPID #### [facility] [address] [place], [place] [address] Dr. Ashok Bailey FREE T4on 11-12-2021 Free T4 [Mass/Vol] 1.16 ng/dL Normal 0.76-1.46 [facility] Comment on above: Performed By: #### F T4 #### [facility] [address] [place] [address] [address] Ashok Bailey LIPID PROFILEon 11-12-2021 CHOL-HDL RATIO NORM SEE BELOW Normal [facility] Comment on above: Result Comment: 3.3 - 4.4 LOW RISK 4.4 - 7.1 AVERAGE RISK 7.1 - 11.0 MODERATE RISK >11.0 HIGH RISK Performed By: #### C MP, CK, TSH, LIPID #### [facility] [address] [place] [address] [address] Ashok Bailey Cholesterol [Mass/Vol] 215 mg/dL Critically high <=200 [facility] Comment on above: Performed By: #### C MP, CK, TSH, LIPID #### [facility] [address] [place] [place] [address] [address] Ashok Bailey Cholesterol in HDL [Mass/Vol] 74 mg/dL Critically high 4 0-60 [facility] Comment on above: Performed By: #### C MP, CK, TSH, LIPID #### [facility] [address] [place] [address] [address] Ashok Bailey Cholesterol in LDL [Mass/Vol] 114.4 mg/dL Normal [facility] Comment on above: Performed By: #### C MP, CK, TSH, LIPID #### [facility] [address] [place] [address] [address] Ashok Bailey Cholesterol.total/Cholestero l in HDL [Mass ratio] 2.9 {ratio} Normal [facility] Comment on above: Performed By: #### C MP, CK, TSH, LIPID #### [facility] [address] [place] [address] [address] Ashok Bailey HDL NORMAL > or = 60 mg/dl - LOW CARDIOVASCULAR RISK <40 mg/dl - HIGH CARDIOVASCULAR RISK Normal [facility] Comment on above: Performed By: #### C MP, CK, TSH, LIPID #### [facility] [address] [place] [address] [address] Ashok Bailey LDL CALC NORMAL SEE BELOW Normal [facility] Comment on above: Result Comment: <100 mg/dl OPTIMAL 100 - 129 mg/dl NEAR OR ABOVE OPTIMAL 130 - 159 mg/dl BORDERLINE HIGH 160 - 189 mg/dl HIGH >190 mg/dl VERY HIGH Performed By: #### C MP, CK, TSH, LIPID #### [facility] [address] [place] [address] [address] Ashok Bailey Triglyceride [Mass/Vol] 133 mg/dL Normal <=150 T [facility] Comment on above: Performed By: #### C MP, CK, TSH, LIPID #### [facility] [address] [place] [address] [address] Ashok Bailey VLDL CALC 26.6 mg/dL Normal [facility] Comment on above: Performed By: #### C MP, CK, TSH, LIPID #### [facility] [address] [place] [address] Dr. Ashok Bailey PROF 14(COMP METB)on 022 Albumin [Mass/Vol] 3.9 g/dL Normal 3.4-5.0 [facility] Comment on above: Performed By: #### C MP, CK, TSH, LIPID #### [facility] [address] [place] [address] [address] Ashok Bailey Albumin/Globulin [Mass ratio] 1.1 {ratio} Normal [facility] Comment on above: Performed By: #### C MP, CK, TSH, LIPID #### [facility] [address] [place] [address] [address] Ashok Bailey ALP [Catalytic activity/Vol] 84 U/L Normal 46-116 [facility] Comment on above: Performed By: #### C MP, CK, TSH, LIPID #### [facility] [address] [place] [address] [address] Ashok Bailey ALT [Catalytic activity/Vol] 18 U/L Normal 14-59 [facility] Comment on above: Performed By: #### C MP, CK, TSH, LIPID #### [facility] [address] [place] [address] [address] Ashok Bailey Anion gap [Moles/Vol] 15.1 mmol/L Normal [facility] Comment on above: Performed By: #### C MP, CK, TSH, LIPID #### [facility] [address] [place] [address] [address] Ashok Bailey AST [Catalytic activity/Vol] 11 U/L Critically low 15- 37 [facility] Comment on above: Performed By: #### C MP, CK, TSH, LIPID #### [facility] [address] [place] [address] [address] Ashok Bailey Bilirubin [Mass/Vol] 0.3 mg/dL Normal 0.2-1.0 [facility] Comment on above: Performed By: #### C MP, CK, TSH, LIPID #### [facility] [address] [place] [address] [address] Ashok Bailey Calcium [Mass/Vol] 9.3 mg/dL Normal 8.5-10.1 [facility] Comment on above: Performed By: #### C MP, CK, TSH, LIPID #### [facility] [address] [place] [address] [address] Ashok Bailey Chloride [Moles/Vol] 101 mmol/L Normal 98-107 [facility] Comment on above: Performed By: #### C MP, CK, TSH, LIPID #### [facility] [address] [place] [address] [address] Ashok Bailey CO2 [Moles/Vol] 22.9 mmol/L Normal 21.0-32.0 [facility] Comment on above: Performed By: #### C MP, CK, TSH, LIPID #### [facility] [address] [place] [address] [address] Ashok Bailey Creatinine [Mass/Vol] 1.67 mg/dL Critically high 0.55-1.02 [facility] Comment on above: Performed By: #### C MP, CK, TSH, LIPID #### [facility] [address] [place] [address] [address] Ashok Bailey EGFR-AF SRI LANKAN 36 mL/min/1.73m2 Critically low >=60 [facility] Comment on above: Performed By: #### C MP, CK, TSH, LIPID #### [facility] [address] [place] [address] [address] Ashok Bailey EGFR-NON AF SRI LANKAN 30 mL/min/1.73m2 Critically low >=60 [facility] Comment on above: Performed By: #### C MP, CK, TSH, LIPID #### [facility] [address] [place] [address] [address] Ashok Bailey Globulin (S) [Mass/Vol] 3.5 g/dL Normal T [facility] Comment on above: Performed By: #### C MP, CK, TSH, LIPID #### [facility] [address] [place] [address] [address] Ashok Bailey Glucose [Mass/Vol] 96 mg/dL Normal 74-106 [facility] Comment on above: Performed By: #### C MP, CK, TSH, LIPID #### [facility] [address] [place] [address] [address] Ashok Bailey Potassium [Moles/Vol] 5.0 mmol/L Normal 3.5-5.1 [facility] Comment on above: Performed By: #### C MP, CK, TSH, LIPID #### [facility] [address] [place] [address] [address] Ashok Bailey Protein [Mass/Vol] 7.4 g/dL Normal 6.4-8.2 [facility] Comment on above: Performed By: #### C MP, CK, TSH, LIPID #### [facility] [address] [place] [address] [address] Ashok Bailey Sodium [Moles/Vol] 134 mmol/L Critically low 136-145 [facility] Comment on above: Performed By: #### C MP, CK, TSH, LIPID #### [facility] [address] [place] [address] [address] Ashok Bailey Urea nitrogen [Mass/Vol] 27.0 mg/dL Critically high 7.0-18 .0 [facility] Comment on above: Performed By: #### C MP, CK, TSH, LIPID #### [facility] [address] [place] [address] [address] Ashok Bailey Urea nitrogen/Creatinine [Ma ss ratio] 16.2 mg/mg Normal [facility] Comment on above: Performed By: #### C MP, CK, TSH, LIPID #### [facility] [address] [place] [address] [address] Ashok Bailey TSHon 11-12-2021 TSH 3.073 uIU/mL Normal 0.358-3.74 0 [facility] Comment on above: Performed By: #### C MP, CK, TSH, LIPID #### [facility] [address] [place], [place] [address] Dr. Ashok Bailey [facility] [place] 05-30-2021 Albumin [Mass/Vol] 4.7 g/dL Normal 3.6-5.1 [facility] Comment on above: Performed By: #### 7 600, 06872 #### [facility] of [address], [address] [place] [address] Supervisor Brake Repair: Austin Tobin MD Albumin/Globulin [Mass ratio] 1.8 {ratio} Normal 1.0-2 .5 [facility] Comment on above: Performed By: #### 7 600, 50083 #### [facility] [place] [address] Supervisor [employer] Rep[employer]: Austin Tobin MD ALP [Catalytic activity/Vol] 84 U/L Normal 37-153 [facility] Comment on above: Performed By: #### 7 600, 69948 #### [facility] [place] [address] Supervisor [employer] Rep[employer]: Austin Tobin MD ALT [Catalytic activity/Vol] 13 U/L Normal 6-29 [facility] Comment on above: Performed By: #### 7 600, 58666 #### [facility] [place] [address] Supervisor [employer] Rep[employer]: Austin Tobin MD AST [Catalytic activity/Vol] 12 U/L Normal 10-35 [facility] Comment on above: Performed By: #### 7 600, 98620 #### [facility] [place] [address] Supervisor [employer]ke Rep[employer]: Austin Tobin MD Bilirubin [Mass/Vol] 0.3 mg/dL Normal 0.2-1.2 [facility] Comment on above: Performed By: #### 7 600, 12058 #### [facility] [address], [address] [place] [address] Supervisor Bra[employer] Rep[employer]: Austin Tobin MD BUN/CREATININE RATIO NOT APPLICABLE Normal 6-22 [facility] Comment on above: Performed By: #### 7 600, 14597 #### [facility] of [address], [address] [place] [address] Supervisor [employer] Rep[employer]: Austin Tobin MD Calcium [Mass/Vol] 10.2 mg/dL Normal 8.6-10.4 [facility] Comment on above: Performed By: #### 7 600, 26704 #### [facility] [address], [address] [place] [address] Supervisor [employer] Rep[employer]: Austin Tobin MD Chloride [Moles/Vol] 99 mmol/L Normal 98-110 [facility] Comment on above: Performed By: #### 7 600, 73408 #### [facility] [place] [address] Supervisor [employer] Rep[employer]: Austin Tobin MD CO2 [Moles/Vol] 29 mmol/L Normal 20-32 [facility] Comment on above: Performed By: #### 7 600, 89224 #### [facility] [place] [address] Supervisor Brake Rep[employer]: Austin Tobin MD Creatinine [Mass/Vol] 0.71 mg/dL Normal 0.60-0.93 [facility] Comment on above: Result Comment: For patients >49 years of age, the reference limit for Creatinine is approximately 13% higher for people identified as -B[place]rain[place]. Performed By: #### 7 600, 18721 #### [facility] [address], [address] [place] [address] Supervisor Brake Repair: Austin Tobin MD eGFR NON-AFR. SRI LANKAN 84 mL/min/1.73m2 Normal > OR = 60 [facility] Comment on above: Performed By: #### 7 600, 02104 #### [facility] [place] [address] Supervisor Brake Rep[employer]: Austin Tobin MD GFR/1.73 sq M.predicted rosa m g blacks MDRD (S/P/Bld) [Vol rate/Area] 97 mL/min/{1.73_m2} Normal > OR = 60 [facility] Comment on above: Performed By: #### 7 600, 05993 #### [facility] of [address], [address] [place] [address] Supervisor Bra[employer] Rep[employer]: Austin Tobin MD Globulin (S) [Mass/Vol] 2.6 g/dL Normal 1.9-3.7 [facility] Comment on above: Performed By: #### 7 600, 67872 #### [facility] of [place] [address] Supervisor Brake Repair: Austin Tobin MD Glucose [Mass/Vol] 86 mg/dL Normal 65-99 [facility] Comment on above: Result Comment: Fasting reference interval Performed By: #### 7 600, 23499 #### [facility] of [place] [address] Supervisor Brake Repair: Austin Tobin MD Potassium [Moles/Vol] 4.4 mmol/L Normal 3.5-5.[address] [facility] Comment on above: Performed By: #### 7 600, 78701 #### [facility] [place] [address] Supervisor Brake Repair: Austin Tobin MD Protein [Mass/Vol] 7.3 g/dL Normal 6.1-8.1 [facility] Comment on above: Performed By: #### 7 600, 79358 #### [facility] of [place] [address] Supervisor Brake Repair: Austin Tobin MD Sodium [Moles/Vol] 135 mmol/L Normal 135-146 [facility] Comment on above: Performed By: #### 7 600, 50657 #### [facility] [address], [address] [place] [address] Supervisor Brake Rep[employer]: Austin Tobin MD Urea nitrogen [Mass/Vol] 10 mg/dL Normal 7- [facility] Comment on above: Performed By: #### 7 600, 33422 #### [facility] [address], [address] [place] [address] Supervisor Brake Repair: Austin Tobin MD LIPID PANEL, STANDARD - Cholesterol [Mass/Vol] 214 mg/dL High <200 [facility] Comment on above: Performed By: #### 7 600, 32601 #### [facility] [address], [address] [place] [address] Supervisor Brake Repair: Austin Tobin MD Cholesterol in HDL [Mass/Vol] 85 mg/dL Normal > OR = 50 [facility] Comment on above: Performed By: #### 7 600, 46131 #### [facility] [address], [address] [place] [address] Supervisor Brake Repair: Austin Tobin MD Cholesterol in LDL [Mass/Vol] [...] LDL-C. Jordan HOU et al. JAUN. 2013;310(19): 8873-9984 (http://education.[employer].SchoolChapters/faq/XUG990) Performed By: #### 7 600, 43971 #### [facility] [place] [address] Supervisor Brake Repair: Austin Tobin MD Cholesterol.total/Cholestero l in HDL [Mass ratio] 2.5 {ratio} Normal <5.0 [facility] Comment on above: Performed By: #### 7 600, 88152 #### [facility] [place] [address] Supervisor Brake Repair: Austin Tobin MD NON HDL CHOLESTEROL 129 mg/dL (calc) Normal <130 [facility] Comment on above: Result Comment: For patients with diabetes plus 1 major ASCVD risk factor, treating to a non-HDL-C goal of <100 mg/dL (LDL-C of <70 mg/dL) is considered a therapeutic option. Performed By: #### 7 600, 46923 #### [facility] [place] [address] Supervisor Brake Repair: Austin Tobin MD Triglyceride [Mass/Vol] 113 mg/dL Normal <150 [facility] Comment on above: Performed By: #### 7 600, 33706 #### [facility] [place] [address] Supervisor Brake Repair: Austin Tobin MD [facility] 05-04-2021 Albumin [Mass/Vol] 4.3 g/dL Normal 3.6-5.1 [facility] Comment on above: Performed By: #### 7 600, 79576 #### [facility] [place] [address] Supervisor Brake Rep[employer]: Austin Tobin MD Albumin/Globulin [Mass ratio] 1.8 {ratio} Normal 1.0-2 .5 [facility] Comment on above: Performed By: #### 7 600, 22388 #### [facility] [place] [address] Supervisor Brake Rep[employer]: Austin Tobin MD ALP [Catalytic activity/Vol] 82 U/L Normal 37-153 [facility] Comment on above: Performed By: #### 7 600, 46788 #### [facility] [place] [address] Supervisor Brake Repair: Austin Tobin MD ALT [Catalytic activity/Vol] 11 U/L Normal 6-29 [facility] Comment on above: Performed By: #### 7 600, 20272 #### [facility] [address] [place] [address] Supervisor Brake Repair: Austin Tobin MD AST [Catalytic activity/Vol] 12 U/L Normal 10-35 [facility] Comment on above: Performed By: #### 7 600, 89087 #### [facility] of [place] [address] Supervisor Brake Repair: Austin Tobin MD Bilirubin [Mass/Vol] 0.4 mg/dL Normal 0.2-1.2 [facility] t [facility] Comment on above: Performed By: #### 7 600, 97517 #### [facility] of [place] [address] Supervisor Brake Repair: Austin Tobin MD BUN/CREATININE RATIO NOT APPLICABLE Normal 6-22 [facility] Comment on above: Performed By: #### 7 600, 68356 #### [facility] [place] [address] Supervisor Brake Repair: Austin Tobin MD Calcium [Mass/Vol] 9.4 mg/dL Normal 8.6-10.4 [facility] Comment on above: Performed By: #### 7 600, 83252 #### [facility] of [place] [address] Supervisor Brake Repair: Austin Tobin MD Chloride [Moles/Vol] 98 mmol/L Normal 98-110 [facility] Comment on above: Performed By: #### 7 600, 17154 #### [facility] [place] [address] Supervisor Brake Repair: Austin Tobin MD CO2 [Moles/Vol] 28 mmol/L Normal 20-32 [facility] Comment on above: Performed By: #### 7 600, 88079 #### [facility] [place] [address] Supervisor Brake Repair: Austin Tobin MD Creatinine [Mass/Vol] 0.73 mg/dL Normal 0.60-0.93 [facility] Comment on above: Result Comment: For patients >49 years of age, the reference limit for Creatinine is approximately 13% higher for people identified as -Bahrain[place]. Performed By: #### 7 600, 51375 #### [facility] [address], [address] [place] [address] Supervisor Brake Repair: Austin Tobin MD eGFR NON-AFR. SRI LANKAN 82 mL/min/1.73m2 Normal > OR = 60 [facility] Comment on above: Performed By: #### 7 600, 69538 #### [facility] [address], [address] [place] [address] Supervisor Brake Repair: Austin Tobin MD GFR/1.73 sq M.predicted rosa m g blacks MDRD (S/P/Bld) [Vol rate/Area] 95 mL/min/{1.73_m2} Normal > OR = 60 [facility] Comment on above: Performed By: #### 7 600, 07350 #### [facility] [address], [address] [place] [address] Supervisor Brake Repair: Austin Tobin MD Globulin (S) [Mass/Vol] 2.4 g/dL Normal 1.9-3.7 [facility] Comment on above: Performed By: #### 7 600, 62478 #### [facility] [place] [address] Supervisor Brake Repair: Austin Tobin MD Glucose [Mass/Vol] 102 mg/dL Normal 65-139 [facility] Comment on above: Result Comment: Non-fasting reference interval For someone without known diabetes, a glucose value between 100 and 125 mg/dL is consistent with prediabetes and should be confirmed with a follow-up test. Performed By: #### 7 600, 63347 #### [facility] [address], [address] [place] [address] Supervisor Brake Repair: Austin Tobin MD Potassium [Moles/Vol] 4.3 mmol/L Normal 3.5-5.[address] [facility] Comment on above: Performed By: #### 7 600, 67226 #### [facility] [address], [address] [place] [address] Supervisor Brake Repair: Austin Tobin MD Protein [Mass/Vol] 6.7 g/dL Normal 6.1-8.1 [facility] Comment on above: Performed By: #### 7 600, 16579 #### [facility] [place] [address] Supervisor Brake Repair: Austin Tobin MD Sodium [Moles/Vol] 132 mmol/L Low 135-146 [facility] Comment on above: Performed By: #### 7 600, 28277 #### [facility] [place] [address] Supervisor Brake Repair: Austin Tobin MD Urea nitrogen [Mass/Vol] 12 mg/dL Normal 7-25 [facility] Comment on above: Performed By: #### 7 600, 79971 #### [facility] [place] [address] Supervisor Brake Repair: Austin Tobin MD LIPID PANEL, [facility] 03-0 Cholesterol [Mass/Vol] 168 mg/dL Normal <200 [facility] Comment on above: Order Comment: FASTI NG:NO FASTING: NO Performed By: #### 7 600, 35703 #### [facility] [place] [address] Supervisor Brake Repair: Austin Tobin MD Cholesterol in HDL [Mass/Vol] 79 mg/dL Normal > OR = 50 [facility] Comment on above: Order Comment: FASTI NG:NO FASTING: NO Performed By: #### 7 600, 63268 #### [facility] [place] [address] Supervisor Brake Repair: Austin Tobin MD Cholesterol in LDL [Mass/Vol] 73 mg/dL Normal [facility] Comment on above: Order Comment: FASTI NG:NO FASTING: NO Result Comment: Refe rence range: <100 Desirable range <100 mg/dL for primary prevention; <70 mg/dL for patients with CHD or diabetic patients with > or = 2 CHD risk factors. LDL-C is now calculated using the Jordan-Diaz calculation, which is a validated novel method providing better accuracy than the Friedewald equation in the estimation of LDL-C. Jordan SS et al. JAUN. 2013;310(19): 7612-4912 (http://education.[employer].SchoolChapters/faq/BYO433) Performed By: #### 7 600, 00158 #### [facility] [address], [address] [place] [address] Supervisor Brake Repair: Austin Tobin MD Cholesterol.total/Cholestero l in HDL [Mass ratio] 2.1 {ratio} Normal <5.0 [facility] Comment on above: Order Comment: FASTI NG:NO FASTING: NO Performed By: #### 7 600, 86560 #### [facility] [place] [address] Supervisor Brake Repair: Austin Tobin MD NON HDL CHOLESTEROL 89 mg/dL (calc) Normal <130 [facility] Comment on above: Order Comment: FASTI NG:NO FASTING: NO Result Comment: For patients with diabetes plus 1 major ASCVD risk factor, treating to a non-HDL-C goal of <100 mg/dL (LDL-C of <70 mg/dL) is considered a therapeutic option. Performed By: #### 7 600, 04206 #### [facility] [place] [address] Supervisor Brake Repair: Austin Tobin MD Triglyceride [Mass/Vol] 79 mg/dL Normal <150 [facility] Comment on above: Order Comment: FASTI NG:NO FASTING: NO Performed By: #### 7 600, 40974 #### [facility] [address], [address] [place] [address] Supervisor Brake Repair: Austin Tobin MD Vital Signs Date Time Vital Sign Value Performing Clinician Facility 12-06-2024 11:12-0400 Body height 157.5 cm Digital [facility] Phone: [facility] 12-06-2024 11:12-0400 Body mass index (BMI) [Ratio] 26.59 kg/m2 [facility] Work Phone: [facility] 12-06-2024 11:12-0400 Body temperature 98.2 [degF] Carson Furlong DO Work Phone: [facility] 12-06-2024 11:12-0400 Body weight 65.95 kg Carson Furlong DO Work Phone: [facility] 12-06-2024 11:12-0400 Diastolic blood pressure 60 mm[Hg] Carson Furlong DO Work Phone: [facility] 12-06-2024 11:12-0400 Heart rate 62 /min Carson Furlong DO Work Phone: [facility] 12-06-2024 11:12-0400 Respiratory rate 20 /min Carson Furlong DO Work Phone: [facility] 12-06-2024 11:12-0400 SaO2% (BldA) [Mass fraction] 97 % Carson Furlong DO Work Phone: [facility] 12-06-2024 11:12-0400 Systolic blood pressure 128 mm[Hg] Carson Furlong DO Work Phone: [facility] 10-10-2024 09:25-0400 Body height 157.5 cm Carson Furlong DO Work Phone: [facility] 10-10-2024 09:25-0400 Body mass index (BMI) [Ratio] 26.16 kg/m2 Carson Furlong DO Work Phone: [facility] 10-10-2024 09:25-0400 Body weight 64.86 kg Carson Furlong DO Work Phone: [facility] 10-10-2024 09:25-0400 Diastolic blood pressure 72 mm[Hg] Carson Furlong DO Work Phone: [facility] 10-10-2024 09:25-0400 Systolic blood pressure 130 mm[Hg] Carson Furlong DO Work Phone: [facility] 06-06-2024 11:08-0400 Body height 157.5 cm Carson Furlong DO Work Phone: [facility] 06-06-2024 11:08-0400 Body mass index (BMI) [Ratio] 26.7 kg/m2 Carson Furlong DO Work Phone: [facility] 06-06-2024 11:08-0400 Body temperature 97.9 [degF] Carson Furlong DO Work Phone: [facility] 06-06-2024 11:08-0400 Body weight 66.22 kg Carson Furlong DO Work Phone: [facility] 06-06-2024 11:08-0400 Diastolic blood pressure 80 mm[Hg] Carson Furlong DO Work Phone: [facility] 06-06-2024 11:08-0400 Heart rate 75 /min Carson Furlong DO Work Phone: [facility] 06-06-2024 11:08-0400 Respiratory rate 18 /min Carson Furlong DO Work Phone: [facility] 06-06-2024 11:08-0400 SaO2% (BldA) [Mass fraction] 99 % Carson Furlong DO Work Phone: [facility] 06-06-2024 11:08-0400 Systolic blood pressure 122 mm[Hg] Carson Furlong DO Work Phone: [facility] 04-09-2024 10:57-0500 Body height 160.02 cm [facility] 04-09-2024 10:57-0500 Body mass index (BMI) [Ratio] 26 kg/m2 [facility] 04-09-2024 10:57-0500 Body temperature 97.8 [degF] [facility] 04-09-2024 10:57-0500 Body weight 66.67 kg [facility] 04-09-2024 10:57-0500 Diastolic blood pressure 66 mm[Hg] [facility] 04-09-2024 10:57-0500 Heart rate 61 /min [facility] 04-09-2024 10:57-0500 Respiratory rate 16 /min [facility] 04-09-2024 10:57-0500 Systolic blood pressure 138 mm[Hg] [facility] 03-12-2024 16:12-0500 Body height 157.5 cm Carson Furlong DO Work Phone: [facility] 03-12-2024 16:12-0500 Body mass index (BMI) [Ratio] 27.4 kg/m2 Carson Furlong DO Work Phone: [facility] 03-12-2024 16:12-0500 Body temperature 97.9 [degF] Carson Furlong DO Work Phone: [facility] 03-12-2024 16:12-0500 Body weight 67.95 kg Carson Furlong DO Work Phone: [facility] 03-12-2024 16:12-0500 Diastolic blood pressure 60 mm[Hg] Carson Furlong DO Work Phone: [facility] 03-12-2024 16:12-0500 Heart rate 88 /min Carson Furlong DO Work Phone: [facility] 03-12-2024 16:12-0500 Respiratory rate 18 /min Carson Furlong DO Work Phone: [facility] [employer] 03-12-2024 16:12-0500 SaO2% (BldA) [Mass fraction] 95 % Carson Furlong DO Work Phone: [facility] 03-12-2024 16:12-0500 Systolic blood pressure 110 mm[Hg] Carson Furlong DO Work Phone: [facility] 12-28-2023 13:02-0400 Body height 157.5 cm Carson Furlong DO Work Phone: [facility] 12-28-2023 13:02-0400 Body mass index (BMI) [Ratio] 26.26 kg/m2 Carson Furlong DO Work Phone: [facility] 12-28-2023 13:02-0400 Body temperature 98.1 [degF] Carson Furlong DO Work Phone: [facility] 12-28-2023 13:02-0400 Body weight 65.14 kg Carson Furlong DO Work Phone: [facility] 12-28-2023 13:02-0400 Diastolic blood pressure 54 mm[Hg] Carson Furlong DO Work Phone: [facility] 12-28-2023 13:02-0400 Heart rate 78 /min Carson Furlong DO Work Phone: [facility] 12-28-2023 13:02-0400 Respiratory rate 20 /min Carson Furlong DO Work Phone: [facility] 12-28-2023 13:02-0400 SaO2% (BldA) [Mass fraction] 96 % Carson Furlong DO Work Phone: [facility] 12-28-2023 13:02-0400 Systolic blood pressure 122 mm[Hg] Carson Furlong DO Work Phone: [facility] 10-24-2023 10:52-0400 Body height 160.02 cm [facility] 10-24-2023 10:52-0400 Body mass index (BMI) [Ratio] 24.5 kg/m2 [facility] 10-24-2023 10:52-0400 Body temperature 97.8 [degF] [facility] 10-24-2023 10:52-0400 Body weight 62.76 kg [facility] 10-24-2023 10:52-0400 Diastolic blood pressure 67 mm[Hg] [facility] 10-24-2023 10:52-0400 Heart rate 80 /min [facility] 10-24-2023 10:52-0400 Respiratory rate 18 /min [facility] 10-24-2023 10:52-0400 SaO2% (BldA) [Mass fraction] 99 % [facility] 10-24-2023 10:52-0400 Systolic blood pressure 126 mm[Hg] [facility] 10-10-2023 10:37-0400 Body height 157.5 cm Carson Furlong DO Work Phone: [facility] 10-10-2023 10:37-0400 Body mass index (BMI) [Ratio] 26.14 kg/m2 Carson Furlong DO Work Phone: [facility] 10-10-2023 10:37-0400 Body weight 64.82 kg Carson Furlong DO Work Phone: [facility] 10-10-2023 10:37-0400 Diastolic blood pressure 68 mm[Hg] Carson Furlong DO Work Phone: [facility] 10-10-2023 10:37-0400 Systolic blood pressure 137 mm[Hg] Carson Furlong DO Work Phone: [facility] 09-26-2023 13:39-0400 Body height 160 cm Carson Furlong DO Work Phone: [facility] 09-26-2023 13:39-0400 Body mass index (BMI) [Ratio] 25.3 kg/m2 Carson Furlong DO Work Phone: [facility] 09-26-2023 13:39-0400 Body temperature 97.9 [degF] Carson Furlong DO Work Phone: [facility] 09-26-2023 13:39-0400 Body weight 64.77 kg Carson Furlong DO Work Phone: [facility] 09-26-2023 13:39-0400 Diastolic blood pressure 40 mm[Hg] Carson Furlong DO Work Phone: [facility] 09-26-2023 13:39-0400 Heart rate 81 /min Carson Furlong DO Work Phone: [facility] 09-26-2023 13:39-0400 Respiratory rate 18 /min Carson Furlong DO Work Phone: [facility] 09-26-2023 13:39-0400 SaO2% (BldA) [Mass fraction] 99 % Carson Furlong DO Work Phone: [facility] 09-26-2023 13:39-0400 Systolic blood pressure 100 mm[Hg] Carson Furlong DO Work Phone: [facility] 06-28-2023 11:33-0400 Body height 160 cm Carson Furlong DO Work Phone: [facility] 06-28-2023 11:33-0400 Body mass index (BMI) [Ratio] 25.35 kg/m2 Carson Furlong DO Work Phone: [facility] 06-28-2023 11:33-0400 Body temperature 97.5 [degF] Carson Furlong DO Work Phone: [facility] 06-28-2023 11:33-0400 Body weight 64.91 kg Carson Furlong DO Work Phone: [facility] 06-28-2023 11:33-0400 Diastolic blood pressure 78 mm[Hg] Carson Furlong DO Work Phone: [facility] 06-28-2023 11:33-0400 Heart rate 97 /min Carson Furlong DO Work Phone: [facility] 06-28-2023 11:33-0400 Respiratory rate 24 /min Carson Sullivan DO Work Phone: [facility] 06-28-2023 11:33-0400 SaO2% (BldA) [Mass fraction] 100 % Carson Sullivan DO Work Phone: [facility] 06-28-2023 11:33-0400 Systolic blood pressure 134 mm[Hg] Carson Sullivan DO Work Phone: [facility] [employer] 04-28-2023 09:54-0500 Body height 160 cm Good Dan PROCUREMENT INTERN-SECURITIES SUPERVISOR Work Phone: [facility] [employer] 04-28-2023 09:54-0500 Body mass index (BMI) [Ratio] 25.51 kg/m2 Good Dan PROCUREMENT INTERN-SECURITIES SUPERVISOR Work Phone: [facility] [employer] 04-28-2023 09:54-0500 Body temperature 98.01 [degF] Good Dan PROCUREMENT INTERN-SECURITIES SUPERVISOR Work Phone: [facility] [employer] 04-28-2023 09:54-0500 Body weight 65.32 kg Good Dan PROCUREMENT INTERN-SECURITIES SUPERVISOR Work Phone: [facility] [employer] 04-28-2023 09:54-0500 Diastolic blood pressure 70 mm[Hg] Good Dan PROCUREMENT INTERN-SECURITIES SUPERVISOR Work Phone: [facility] 04-28-2023 09:54-0500 Heart rate 79 /min Goodles Dan PROCUREMENT INTERN-SECURITIES SUPERVISOR Work Phone: [facility] 04-28-2023 09:54-0500 SaO2% (BldA) [Mass fraction] 87 % Goodles Dan PROCUREMENT INTERN-SECURITIES SUPERVISOR Work Phone: [facility] 04-28-2023 09:54-0500 Systolic blood pressure 140 mm[Hg] Good Dan PROCUREMENT INTERN-SECURITIES SUPERVISOR Work Phone: [facility] 01-25-2024 08:33-0500 Body height 160 cm Good Dan PROCUREMENT INTERN-SECURITIES SUPERVISOR Work Phone: [employer] 03-30-2023 08:33-0500 Body mass index (BMI) [Ratio] 24.66 kg/m2 Good Dan PROCUREMENT INTERN-SECURITIES SUPERVISOR Work Phone: [employer] 03-30-2023 08:33-0500 Body temperature 97.9 [degF] Good Dan PROCUREMENT INTERN-SECURITIES SUPERVISOR Work Phone: [employer] 03-30-2023 08:33-0500 Body weight 63.14 kg Good Dan PROCUREMENT INTERN-SECURITIES SUPERVISOR Work Phone: [employer] 03-30-2023 08:33-0500 Diastolic blood pressure 58 mm[Hg] Good Dan PROCUREMENT INTERN-SECURITIES SUPERVISOR Work Phone: [employer] 03-30-2023 08:33-0500 Heart rate 78 /min Good Dan PROCUREMENT INTERN-SECURITIES SUPERVISOR [facility] 03-30-2023 08:33-0500 SaO2% (BldA) [Mass fraction] 100 % Good Dan APRN-SECURITIES SUPERVISOR Work Phone: [employer] 03-30-2023 08:33-0500 Systolic blood pressure 118 mm[Hg] Good Dan APRN-SECURITIES SUPERVISOR Work Phone: [employer] 03-28-2023 11:20-0500 Body height 160.02 cm Bri [employer] Other [employer] Other 03-28-2023 11:20-0500 Body mass index (BMI) [Ratio] 24.83 kg/m2 [employer] Other [employer] Other 03-28-2023 11:20-0500 Body temperature 96.9 [degF] [employer] Other [employer] Other 03-28-2023 11:20-0500 Body weight 63.59 kg Aziz Bakhous Other [employer] Other 03-28-2023 11:20-0500 Diastolic blood pressure 70 mm[Hg] Aziz Bakhous Other [employer] Other 03-28-2023 11:20-0500 Systolic blood pressure 138 mm[Hg] Aziz Bakhous Other [employer] Other 10-11-2022 14:20-0400 Body height 160.02 cm Aziz Bakhous Other [employer] Other 10-11-2022 14:20-0400 Body mass index (BMI) [Ratio] 24.8 kg/m2 Aziz Bakhous Other [employer] Other 10-11-2022 14:20-0400 Body temperature 96.4 [degF] Aziz Bakhous Other [employer] Other 10-11-2022 14:20-0400 Body weight 63.5 kg Aziz Bakhous Other [employer] Other 10-11-2022 14:20-0400 Diastolic blood pressure 60 mm[Hg] Aziz Bakhous Other [employer] Other 10-11-2022 14:20-0400 Respiratory rate 18 /min Aziz Bakhous Other [employer] Other 10-11-2022 14:20-0400 Systolic blood pressure 130 mm[Hg] Aziz Bakhous Other [employer] Other 06-07-2022 10:20-0400 Body height 160.02 cm Azlokesh Fays Other [employer] Other 06-07-2022 10:20-0400 Body mass index (BMI) [Ratio] 24.55 kg/m2 Azlokesh Johous Other [employer] Other 06-07-2022 10:20-0400 Body temperature 97.2 [degF] Azlokesh Fays Other [employer] Other 06-07-2022 10:20-0400 Body weight 62.87 kg Bri Fays Other [employer] Other 06-07-2022 10:20-0400 Diastolic blood pressure 72 mm[Hg] Azlokesh Fays Other [employer] Other 06-07-2022 10:20-0400 Respiratory rate 18 /min Bri Fays Other [employer] Other 06-07-2022 10:20-0400 SaO2% (BldA) [Mass fraction] 97 % Azlokesh Bakhous Other [employer] Other 06-07-2022 10:20-0400 Systolic blood pressure 130 mm[Hg] Aziz Bakhous Other [employer] Other 04-26-2022 09:40-0500 Body height Azlokesh Bakhous Other [employer] Other 04-26-2022 09:40-0500 Body mass index (BMI) [Ratio] 24.97 kg/m2 Bri Alonso Other [employer] Other 04-26-2022 09:40-0500 Body weight 63.96 kg Bri Alonso Other [employer] Other 04-26-2022 09:40-0500 Diastolic blood pressure 84 mm[Hg] Bri Alonso Other [employer] Other 04-26-2022 09:40-0500 SaO2% (BldA) [Mass fraction] 98 % Bri Alonso Other [employer] Other 04-26-2022 09:40-0500 Systolic blood pressure 150 mm[Hg] Bri Alonso Other [employer] Other Encounters Encounter Date Encounter Type Care Provider Facility Start: 12-06-2024 End: 12-06-2024 Office outpatient visit 25 minutes Carson Mustapha Biggstyrnoeconsuelo LEIVA Work Phone: [facility] Comment on above: 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 ([facility]- HCC) (Primary Dx); Gastroesophageal reflux disease without esophagitis; Chronic obstructive pulmonary disease, unspecified COPD type ([facility]-HCC); Sleep disturbance; Need for immunization against influenza Start: 12-06-2024 End: 12-07-2024 Refill Carson Mustapha Biggskye DO Work Phone: [facility] Start: 10-10-2024 End: 10-10-2024 Patient encounter procedure Carsonmanisha Biggstyroneconsuelo DO Work Phone: [facility] Comment on above: Medicare annual well ness visit, subsequent (Primary Dx); Screening for depression Start: 10-10-2024 End: 10-10-2024 [facility] Start: 09-26-2024 End: 09-27-2024 Refill Carson Sullivan DO Work Phone: [facility] Start: 07-01-2024 End: 07-01-2024 Refill Carson Sullivan DO Work Phone: [facility] Start: 06-12-2024 End: 06-14-2024 Orders Only Carson Sullivna DO Work Phone: [facility] Comment on above: 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 (Primary Dx) Start: 06-07-2024 End: 06-07-2024 Orders Only Carson Sullivan DO Work Phone: [facility] Start: 06-06-2024 End: 06-06-2024 ambulatory [place] [facility] Start: 06-06-2024 End: 06-06-2024 Office outpatient visit 25 minutes Carson Sullivan DO Work Phone: [facility] Comment on above: 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 (CMS- HCC) (Primary Dx); Gastroesophageal reflux disease without esophagitis; Acquired hypothyroidism; Hyperlipidemia, unspecified hyperlipidemia type; Hiatal hernia; Overweight (BMI 25.0-29.9) Start: 06-06-2024 End: 06-06-2024 ambulatory [facility] Start: 04-23-2024 End: 04-23-2024 Refill Carson Sullivan DO Work Phone: [facility] Comment on above: Essential hypertensi on Start: 04-09-2024 End: 04-09-2024 ambulatory [facility] Work Phone: Start: 04-09-2024 End: 04-09-2024 Patient encounter procedure [facility] Work Phone: Start: 04-02-2024 Non-patient / Non-visit [facility] Work Phone: Start: 03-12-2024 End: 03-12-2024 Office outpatient visit 15 minutes [facility] Sullivan [facility] Comment on above: Post-herpetic polyne uropathy (Primary Dx) Start: 03-12-2024 End: 03-12-2024 ambulatory [facility] Start: 03-04-2024 End: 03-04-2024 Telephone encounter Carson Sullivan DO Work Phone: [facility] Start: 02-29-2024 End: 02-29-2024 Orders Only Carson Sullivan DO Work Phone: [facility] Start: 02-22-2024 End: 02-22-2024 ambulatory [facility] Start: 01-31-2024 End: 01-31-2024 Refill Sandra Hernandez [facility] Start: 01-03-2024 End: 01-03-2024 Refill Carson Sullivan DO Work Phone: [facility] Start: 01-01-2024 End: 01-01-2024 Refill Carson Sullivan DO Work Phone: [facility] Start: 12-28-2023 End: 12-28-2023 Office outpatient visit 25 minutes Carson Sullivan DO Work Phone: [facility] Comment on above: Anxiety (Primary Dx) ; Sleep disturbance; Cigarette smoker; Need for immunization against influenza; Fibromyalgia; Postlaminectomy syndrome, not elsewhere classified; Hyperlipidemia, unspecified hyperlipidemia type Start: 12-28-2023 End: 12-28-2023 ambulatory [facility] Start: 12-25-2023 End: 12-25-2023 ambulatory Diamond Mooney MD Facility:[facility] Start: 10-24-2023 End: 10-24-2023 ambulatory [facility] Work Phone: Start: 10-24-2023 End: 10-24-2023 Patient encounter procedure [facility] Work Phone: Start: 10-17-2023 Non-patient / Non-visit [facility] Work Phone: Start: 10-16-2023 End: 10-16-2023 ambulatory Diamond Mooney MD Facility:[facility] Start: 10-10-2023 End: 10-11-2023 Refill Carson Sullivan DO Work Phone: [facility] Comment on above: Anxiety Start: 10-10-2023 End: 10-10-2023 Patient encounter procedure Carson Nelsonng DO Work Phone: [facility] Comment on above: Medicare annual well ness visit, subsequent (Primary Dx); Screening for depression Start: 10-06-2023 End: 10-07-2023 Refill Carson Nelsonng DO Work Phone: [facility] Comment on above: Essential hypertensi on Start: 09-28-2023 End: 09-28-2023 Telephone encounter Carson Nelsonng DO Work Phone: [facility] Start: 09-26-2023 End: 09-26-2023 Office outpatient visit 25 minutes [facility]ng [facility] Comment on above: 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 (Primary Dx); Postlaminectomy syndrome, not elsewhere classified; Tobacco dependence syndrome; Fibromyalgia Start: 09-16-2023 End: 09-16-2023 Refill Carson G Furlong DO Work Phone: [facility] Start: 09-10-2023 End: 09-10-2023 Refill Carson Sullivan DO Work Phone: [facility] Comment on above: Fibromyalgia Start: 08-31-2023 End: 08-31-2023 Orders Only Good Dan PROCUREMENT INTERN-SECURITIES SUPERVISOR Work Phone: [facility] Start: 08-24-2023 End: 08-31-2023 [facility] Comment on above: Postlaminectomy synd colette, not elsewhere classified Start: 08-21-2023 End: 08-21-2023 Refill Carson Sullivan [facility] Start: 08-15-2023 End: 10-04-2023 Telephone encounter Carson Sullivan DO Work Phone: [facility] Start: 07-26-2023 End: 08-01-2023 Refill Trixie Jeremy [facility] Comment on above: Postlaminectomy synd colette, not elsewhere classified Start: 07-14-2023 End: 07-14-2023 ambulatory YULIA HERNÁNDEZ Not Available Start: 07-03-2023 End: 07-03-2023 Orders Only Carson Sullivan DO Work Phone: [facility] Comment on above: Postlaminectomy synd colette, not elsewhere classified (Primary Dx) Start: 06-30-2023 End: 06-30-2023 Telephone encounter Kim Diamond [facility] Comment on above: Preventative Screeni ng Start: 06-28-2023 End: 06-28-2023 ambulatory CARSON SULLIVAN 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 (CMS- HCC) (Primary Dx); Acquired hypothyroidism; Fibromyalgia; Anxiety; Postlaminectomy syndrome, not elsewhere classified; Sleep disturbance; Tobacco dependence syndrome; Spinal stenosis of lumbar region without neurogenic claudication; Hypokalemia; Hyperlipidemia, unspecified hyperlipidemia type Start: 06-03-2023 Orders Only Carson Nelson consuelo DO [facility] Comment on above: Special screening fo r malignant neoplasm of colon (Primary Dx) Start: 05-29-2023 Refill Farnaz Bennett ELECTROENCEPHALOGRAPH TECHNICIAN [facility] Comment on above: 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 Start: 05-19-2023 End: 05-19-2023 ambulatory YULIA HERNÁNDEZ Not Available Start: 2023 End: 2023 ambulatory Aden Baca Facility:[facility] Start: 05-02-2023 Refill Trixie Jeremy [facility]ist [facility] Comment on above: 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 Start: 04-29-2023 Refill Good Dan PROCUREMENT INTERN-SECURITIES SUPERVISOR Work Phone: [facility] Start: 04-28-2023 End: 04-28-2023 Office outpatient visit 15 minutes Good Dan PROCUREMENT INTERN-SECURITIES SUPERVISOR Work Phone: [facility] Comment on above: 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 (Primary Dx); Tobacco dependence syndrome; Lumbosacral spondylosis without myelopathy Start: 04-17-2023 Refill Trixie Jeremy ELECTROENCEPHALOGRAPH TECHNICIAN [facility] Comment on above: Essential hypertensi on Start: 04-07-2023 Bamboo flowsheet Yulia FOSTER Work Phone: [facility] Start: 04-07-2023 Bamboo flowsheet Yulia FOSTER Work Phone: [facility] Start: 04-07-2023 End: 04-07-2023 ambulatory YULIA HERNÁNDEZ Not Available Start: 04-07-2023 End: 04-07-2023 Patient encounter procedure Yulia Hernández PA Work Phone: [facility] Comment on above: Actinic keratosis (P rimary Dx) Start: 03-30-2023 End: 03-30-2023 Office outpatient visit 15 minutes Goodles Dan PROCUREMENT INTERN-SECURITIES SUPERVISOR Work Phone: [facility] Comment on above: Chronic pain of both shoulders (Primary Dx); Peripheral vascular disease ([facility]); Stage 3b chronic kidney disease ([facility]); Smoker; Lumbosacral spondylosis without myelopathy Start: 03-28-2023 End: 03-28-2023 ambulatory Aziz Bakhous Other [employer] Other Start: 03-28-2023 Office outpatient vi sit 25 minutes Aziz Skysheetleslies [facility] Start: 03-20-2023 Refill Carson cordero DO Work Phone: [facility] Start: 03-10-2023 End: 03-10-2023 ambulatory YULIA HERNÁNDEZ Not Available Start: 03-07-2023 End: 04-06-2023 ambulatory [facility] Start: 03-03-2023 Orders Only Good Dan PROCUREMENT INTERN-SECURITIES SUPERVISOR Work Phone: [facility] Start: 03-02-2023 Refill Farnaz Tee [facility] Comment on above: 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 Start: 02-20-2023 End: 03-06-2023 ambulatory [facility] Start: 10-11-2022 End: 10-11-2022 [facility] [employer] Other Start: 10-11-2022 Office outpatient vi sit 25 minutes Aziz Bakhous [facility] Start: 06-07-2022 End: 06-07-2022 ambulatory Aziz Bakhous Other [employer] Other Start: 06-07-2022 Patient encounter procedure Aziz Bakhous [facility] Start: 06-01-2022 End: 06-02-2022 ambulatory AZIZ BAKHOUS Facility:[facility] Start: 05-03-2022 End: 05-04-2022 ambulatory AZIZ BAKHOUS Facility:[facility] Start: 04-26-2022 End: 04-26-2022 ambulatory Aziz Bakhous Other [employer] Other Start: 04-26-2022 Office outpatient ne w 30 minutes Aziz [facility] Start: 03-25-2022 End: 03-26-[address] CARSON SULLIVAN Facility:[facility]1 Start: 11-12-2021 End: 11-13-[address] CARSON SULLIVAN Facility:[facility] Start: 11-04-2021 End: 11-04-2021 ambulatory SABRINA MANUEL Facility:[facility]1 Start: 10-07-2021 End: 10-07-2021 ambulatory SABRINA MANUEL Facility: Procedures Date Procedure Procedure Detail Performing Clinician Start: 12-06-2024 Follow-up visit Follow-up CARSON SULLIVAN Start: 12-06-2024 Adult depression scr eening assessment Carson Furlong DO Work Phone: Start: 10-10-2024 Adult depression scr eening assessment Carson Furlong DO Work Phone: Start: 06-06-2024 Adult depression scr eening assessment Carson Furlong DO Work Phone: Start: 12-28-2023 Adult depression scr eening assessment Carson Furlong DO Work Phone: Start: 10-10-2023 Adult depression scr eening assessment Carson Furlong DO Work Phone: Start: 09-26-2023 Adult depression scr eening assessment Carson Sullivan DO Work Phone: Start: 06-28-2023 Adult depression scr eening assessment Carson Sullivan DO Work Phone: Start: 04-28-2023 Adult depression scr eening assessment Good Dan PROCUREMENT INTERN-SECURITIES SUPERVISOR Work Phone: Start: 04-07-2023 CRYOTHERAPY SKIN LESION Yulia Martinez Yevgeniy PA Work Phone: Start: 03-30-2023 Adult depression scr eening assessment Good Dan PROCUREMENT INTERN-SECURITIES SUPERVISOR Work Phone: Start: 02-09-2023 Adult depression scr eening assessment Good Dan PROCUREMENT INTERN-SECURITIES SUPERVISOR Work Phone: Plan of Treatment Date Care Activity Detail Author Start: 12-06-2025 Depression Screening Depression Scre ening [facility] Start: 12-06-2025 Fall Risk Screening Fall Risk Screen ing [facility] Start: 12-06-2025 Tobacco Screening Tobacco Screening [facility] Start: 10-14-2025 End: 10-14-2025 Patient encounter procedure 10/14/2025 1:00 PM EDT Office Visit [facility] Internal Medicine - Family Medicine [address] [place] [address] [facility] Internal [facility] - Family Medicine Start: 10-10-2025 Depression Screening Depression Scre ening [facility] Start: 10-10-2025 Fall Risk Screening Fall Risk Screen ing [facility] Start: 10-10-2025 Medicare Annual Well ness Visit Medicare Annual Wellness Visit [facility] Start: 10-10-2025 Tobacco Screening Tobacco Screening [facility] Start: 06-06-2025 Depression Screening Depression Scre ening [facility] Start: 06-06-2025 Tobacco Screening Tobacco Screening [facility] Start: 06-06-2025 End: 06-06-2025 Patient encounter procedure 06/06/2025 11:15 AM EDT Office Visit [facility] Internal Medicine - Family Medicine [address] [place] [address] Carson Sullivan DO [address] [facility] [place] [address] [facility] Internal Medicine - Family Medicine Start: 03-12-2025 Tobacco Screening Tobacco Screening [facility] Start: 02-21-2025 Tobacco Screening Tobacco Screening [facility] Start: 12-27-2024 Adult BMI Screening Adult BMI Screen ing [facility] Start: 12-27-2024 Depression Screening Depression Scre ening [facility] Start: 12-27-2024 Fall Risk Screening Fall Risk Screen ing [facility] Start: 12-27-2024 Tobacco Screening Tobacco Screening [facility] Start: 12-06-2024 End: 12-06-2024 Patient encounter procedure 12/06/2024 11:15 AM EDT Office Visit [facility] Internal Medicine - Family Medicine [address] [place] [address] Carson Sullivan, DO [address] [facility] [place] [address] [facility] Internal Medicine - Family Medicine Start: 11-04-2024 Influenza vaccination Influenza Vacc ine [facility] Start: 10-10-2024 End: 10-10-2024 Patient encounter procedure 10/10/2024 9:40 AM EDT Office Visit [facility] Internal Medicine - Family Medicine [address] [place] [address] [facility] Internal Medicine - Family Medicine Start: 10-09-2024 Adult BMI Screening Adult BMI Screen ing [facility] Start: 10-09-2024 Depression Screening Depression Scre ening [facility] Start: 10-09-2024 Fall Risk Screening Fall Risk Screen ing [facility] Start: 10-09-2024 Medicare Annual Well ness Visit Medicare Annual Wellness Visit [facility] Start: 10-09-2024 Tobacco Screening Tobacco Screening [facility] Start: 09-25-2024 Adult BMI Screening Adult BMI Screen ing [facility] Start: 09-25-2024 Depression Screening Depression Scre ening [facility] Start: 09-25-2024 Fall Risk Screening Fall Risk Screen ing [facility] Start: 09-25-2024 Tobacco Screening Tobacco Screening [facility] Start: 06-27-2024 Adult BMI Screening Adult BMI Screen ing [facility] Start: 06-27-2024 Depression Screening Depression Scre ening [facility] Start: 06-27-2024 Fall Risk Screening Fall Risk Screen ing [facility] Start: 06-27-2024 Tobacco Screening Tobacco Screening [facility] Start: 06-06-2024 End: 06-06-2024 Patient encounter procedure 06/06/2024 11:00 AM EDT [facility] [address] [place] [address] Carson Sullivan, DO [address], [facility] [place] [address] [facility] Start: 04-28-2024 Adult BMI Screening Adult BMI Screen ing [facility] Start: 04-28-2024 Depression Screening Depression Scre ening [facility] Start: 04-28-2024 Fall Risk Screening Fall Risk Screen ing [facility] Start: 04-28-2024 Tobacco Screening Tobacco Screening [facility] Start: 04-10-2024 DTaP,Tdap and Td Vaccines (2 - Td or Tdap) DTaP,Tdap and Td Vaccines (2 - Td or Tdap) [facility] Start: 03-30-2024 Adult BMI Screening Adult BMI Screen ing [facility] Start: 03-30-2024 Depression Screening Depression Scre ening [facility] Start: 03-30-2024 Fall Risk Screening Fall Risk Screen ing [facility] Start: 03-30-2024 Tobacco Screening Tobacco Screening [facility] Start: 03-26-2024 End: 03-26-2024 Patient encounter procedure 03/26/2024 1:30 PM EST Office Visit [facility] Internal [facility] - Family Medicine [address] [place] [address] Carson Sullivan DO [address] [place] [address] [facility] Start: 03-12-2024 End: 03-12-2024 Patient encounter procedure 03/12/2024 4:00 PM EST [facility] Family Medicine [address] [place] [address] Carson Sullivan DO [address] [place] [address] [facility] Start: 02-22-2024 End: 02-22-2024 ambulatory 02/22/2024 2:15 PM EST Support [facility] [address] [place] [address] Carson Sullivan DO [address] [place] [address] [facility] Start: 02-10-2024 Adult BMI Screening Adult BMI Screen ing [facility] Start: 02-10-2024 Depression Screening Depression Scre ening [facility] Start: 02-10-2024 Fall Risk Screening Fall Risk Screen ing [facility] Start: 02-10-2024 Tobacco Screening Tobacco Screening [facility] Start: 12-28-2023 End: 12-28-2023 Patient encounter procedure 12/28/2023 1:00 PM EDT [facility] Family Medicine [address] [place] [address] Carson Sullivan DO [address], [place] [address] [facility] Internal Medicine - Family Medicine Start: 11-05-2023 Influenza vaccination Influenza Vacc ine [facility] Start: 10-10-2023 End: 10-10-2023 Patient encounter procedure 10/10/2023 2:20 PM EDT Office Visit [facility] Internal Medicine - Family Medicine [address] [place] [address] [facility] Internal Medicine Family [facility] Start: 10-10-2023 End: 10-10-2023 Patient encounter procedure 10/10/2023 10:40 AM EDT Office Visit [facility] Internal Medicine - Family Medicine [address] [place] [address] [facility] Internal Medicine Family [facility] Start: 09-26-2023 End: 09-26-2023 Patient encounter procedure 09/26/2023 1:45 PM EDT Office Visit [facility] Internal Medicine - Family Medicine [address] [place] [address] Carson Sullivan, [address] [facility] [place] [address] [facility] Internal [facility] Start: 08-17-2023 End: 08-17-2023 Patient encounter procedure 08/17/2023 11:40 AM EDT Office Visit [facility] Internal Medicine - Family Medicine [address] [place] [address] [facility] Internal Medicine Family Medicine Start: 08-03-2023 Medicare Annual Well ness Visit Medicare Annual Wellness Visit [facility] Start: 07-19-2023 Administration of varicella zoster vaccine Zoster (Shingles) Vaccine (1 of 2) [facility] Comment on above: Postponed from 05/10 (Patient Refused) Start: 05-19-2023 End: 05-19-2023 Patient encounter procedure 05/19/2023 11:50 AM EDT Office Visit [facility] [address] [place] [address] Yulia Hernández PA [address] [place] [address] [facility] Start: 04-07-2023 End: 04-07-2023 Patient encounter procedure 04/07/2023 10:20 AM EST Office Visit [facility] [address] [place] [address] Yulia Hernández PA [address] [place] [address] Arrived [facility] Comment on above: Arrived Start: 03-30-2023 End: 03-30-2024 XR Shoulder - left 2 Views X-ray shoulder left minimum 2 views Imaging Routine Chronic pain of both shoulders Expected: 03/30/2023, Expires: 03/30/2024 [employer] Work Phone: Comment on above: Expected: 03/30/2023 , Expires: 03/30/2024 Start: 03-30-2023 End: 03-30-2024 XR Shoulder - right 2 Views X-ray shoulder right minimum 2 views Imaging Routine Chronic pain of both shoulders Expected: 03/30/2023, Expires: 03/30/2024 [employer] Comment on above: Expected: 03/30/2023 , Expires: 03/30/2024 Start: 03-07-2023 End: 03-07-2023 Patient encounter procedure 03/07/2023 2:00 PM EST Appointment [facility] [address] [place] [address] [facility] Start: 02-03-2023 Screening for malign ant neoplasm of colon Colon Cancer Screening 3 Year [facility] Start: 05-10-1966 Administration of varicella zoster vaccine Zoster (Shingles) Vaccine (1 of 2) [facility] Start: 05-10-1965 Adult BMI Follow Up Plan Adult BMI F ollow Up Plan [facility] Start: 1945 Tobacco Counseling Tobacco Counselin g [facility] Lab Routine Special screening for malignant neoplasm of colon Ordered: 06/03/2023 [facility] Phone: Comment on above: Ordered: 06/03/2023 End: 06-06-2025 Comprehensive metabolic 2000 panel - Serum or Plasma Comprehensive metabolic panel Lab Routine 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 (CMS-HCC) 1 Occurrences starting 06/06/2024 until 06/06/2025 [employer] Work Phone: Comment on above: 1 Occurrences starti ng 06/06/2024 until 06/06/2025 End: 06-06-2025 Lipid 1996 panel - Serum or Plasma Lipid profile Lab Routine Hyperlipidemia, unspecified hyperlipidemia type 1 Occurrences starting 06/06/2024 until 06/06/2025 [facility] Comment on above: 1 Occurrences starti ng 06/06/2024 until 06/06/2025 Renal function 1999 panel - Serum or Plasma [facility] Renal function 1999 panel - Serum or Plasma [facility] End: 06-06-2025 Thyroid profile includes TSH FT4 Thyroid profile includes TSH FT4 Lab Routine Acquired hypothyroidism 1 Occurrences starting 06/06/2024 until 06/06/2025 [facility] Comment on above: 1 Occurrences starti ng 06/06/2024 until 06/06/2025 [facility] Immunizations Immunization Date Immunization Notes Care Provider Fa cili 12-06-2024 Seasonal trivalent influenza vaccine, adjuvanted, preservative free Carson Furlong DO Work Phone: [facility] 12-06-2024 Immunization, In Clinic,; Translations: [Drug or medicament (substance)] Carson Furlong DO Work Phone: [facility] 12-28-2023 Seasonal trivalent influenza vaccine, adjuvanted, preservative free Carson Furlong DO Work Phone: [facility] 12-28-2023 Immunization, In Clinic,; Translations: [Drug or medicament (substance)] Carson Sullivan DO Work Phone: [facility] 12-28-2023 influenza virus vacc ine, unspecified formulation Carsonmanisha Nelsonng DO Work Phone: [facility] 02-09-2023 Influenza Vaccine, Quadrivalent, Adjuvanted [place] PROCUREMENT INTERN-SECURITIES SUPERVISOR Work Phone: [facility] 02-09-2023 influenza virus vacc ine, unspecified formulation Carson Nelsonng DO Work Phone: [facility] 12-04-2020 influenza, high dose seasonal, preservative-free [place] PROCUREMENT INTERN-SECURITIES SUPERVISOR Work Phone: [facility] 11-25-2019 influenza, injectabl e, quadrivalent, preservative free [place] PROCUREMENT INTERN-SECURITIES SUPERVISOR Work Phone: [facility] 05-18-2019 Seasonal trivalent influenza vaccine, adjuvanted, preservative free [place] PROCUREMENT INTERN-SECURITIES SUPERVISOR Work Phone: [facility] 11-19-2018 Seasonal trivalent influenza vaccine, adjuvanted, preservative free [place] PROCUREMENT INTERN-SECURITIES SUPERVISOR Work Phone: [facility] 11-20-2017 influenza, injectabl e, quadrivalent, contains preservative [place] PROCUREMENT INTERN-SECURITIES SUPERVISOR Work Phone: [facility] 11-20-2017 Seasonal trivalent influenza vaccine, adjuvanted, preservative free [place] PROCUREMENT INTERN-SECURITIES SUPERVISOR Work Phone: [facility] 11-25-2016 influenza, injectabl e, quadrivalent, preservative free [place] PROCUREMENT INTERN-SECURITIES SUPERVISOR Work Phone: [facility] 11-25-2016 influenza, seasonal, injectable [place] PROCUREMENT INTERN-SECURITIES SUPERVISOR Work Phone: [facility] 03-14-2016 pneumococcal polysaccharide vaccine, 23 valent Good Dan PROCUREMENT INTERN-SECURITIES SUPERVISOR Work Phone: [facility] 12-10-2015 influenza, high dose seasonal, preservative-free Good Dan PROCUREMENT INTERN-SECURITIES SUPERVISOR Work Phone: [facility] 03-10-2015 pneumococcal conjuga te vaccine, 13 valent [place] PROCUREMENT INTERN-SECURITIES SUPERVISOR Work Phone: [facility] 12-08-2014 influenza, seasonal, injectable, preservative free Goodles Dan PROCUREMENT INTERN-SECURITIES SUPERVISOR Work Phone: [facility] 04-10-2014 tetanus toxoid, redu savanna diphtheria toxoid, and acellular pertussis vaccine, adsorbed Goodles Dan PROCUREMENT INTERN-SECURITIES SUPERVISOR Work Phone: [facility] 12-23-2013 influenza virus vacc ine, unspecified formulation Good Dan PROCUREMENT INTERN-[facility] Work Phone: [facility] 01-28-2013 pneumococcal conjuga te vaccine, 13 valent Good [place] PROCUREMENT INTERN-SECURITIES SUPERVISOR Work Phone: [facility] Payers Date Payer Category Payer Self-pay 2023 Private Health Insurance 2013 Medicare [id number] 2013 Medicare HMO [employer] MEDICARE [id number] 1960 Medicare [id number] 1947 Unknown [id number] 2.16.840.1.506594.3.579. 2.593 1947 Unknown [id number] 2.16.840.1.724411.3.579. 2.593 1947 Unknown [id number] 2.16.840.1.044343.3.579. 2.593 1947 Unknown [id number] 2.16.840.1.761084.3.579. 2.593 1947 Unknown [id number] 2.16.840.1.606123.3.579. 2.593 1947 Unknown [id number] 2.16.840.1.352203.3.579. 2.593 1947 Unknown [id number] 2.16.840.1.976694.3.579. 2.1286 1947 Unknown [id number] 2.16.840.1.840311.3.579. 2.1286 1947 Unknown [id number] 2.16.840.1.257514.3.579. 2.1259 1947 Unknown [id number] 2.16.840.1.229714.3.579. 2.1259 1947 Unknown [id number] 2.16.840.1.067122.3.579. 2.1259 1947 Unknown [id number] 2.16.840.1.709232.3.579. 2.1259 1947 Unknown [id number] 2.16.840.1.022600.3.579. 2.196 1947 Unknown [id number] 2.16.840.1.331893.3.579. 2.196 1947 Unknown [id number] 2.16.840.1.236169.3.579. 2.1286 1947 Unknown [id number] 2.16.840.1.188767.3.579. 2.1286 1947 Unknown [id number] 2.16.840.1.982692.3.579. 2.1286 1947 Unknown [id number] 2.16.840.1.144476.3.579. 2.128 1947 Unknown [id number] 2.16.840.1.705010.3.579. 2.1286 1947 Unknown [id number] 2.16.840.1.925619.3.579. 2.128 1947 Unknown [id number] 2.16.840.1.509133.3.579. 2.1286 1947 Unknown [id number] 2.16.840.1.169666.3.579. 2.1286 Medicare Medicare [id number] Unknown [id number] 2.16.840.1.351003.3.579. 2.531 Social History Date Type Detail Facility Start: 07-18-2022 End: 06-28-2023 Sex Assigned At [facility] Other Start: 03-10-2023 Tobacco smoking status VAIS Tobacco smoking consumption unknown [facility] Start: 1945 Sex Assigned At Not on file [facility] Start: 10-24-2023 End: 10-24-2023 Tobacco smoking status NHIS Smoker (finding) [facility] Start: 1945 Sex Assigned At Female [facility] Start: 11-16-2021 End: 06-28-2023 Tobacco smoking status NHIS Smokes tobacco daily [facility] History of tobacco use Cigarette Smoker [facility] Start: 07-18-2022 End: 06-28-2023 Cigarettes smoked current (pack per day) - Reported 1 [facility] Start: 11-16-2021 End: 06-28-2023 Tobacco use and exposure Smokeless tobacco non-user [facility] Start: 02-22-2024 End: 12-06-2024 Alcoholic beverage intake Lifetime non-drinker (finding) [facility] Has the [employer], [employer], or water company threatened to shut off services in your home in past 12Mo No [facility] Are you now , , , , never or living with a partner? [facility] How often to you hav e a drink containing alcohol? Monthly or less [facility] How many standard drinks containing alcohol do you have on a typical day? 1 or 2 [facility] How often do you hav e 6 or more drinks on 1 occasion? Never [facility] How hard is it for y ou to pay for the very basics like food, housing, medical care, and heating Not hard at all [facility] Do you feel stress - tense, restless, nervous, or anxious, or unable to sleep at night because your mind is troubled all the time - these days [OSQ] Only a little [facility] Start: 06-28-2023 Tobacco Comment Trying to cut back-smoking about 1/2 PPD now but it depends; trying to quit so she can have shoulder replacement surgery [facility] Start: 10-09-2014 End: 04-09-2024 Sex Female (finding) [facility] Clinical Notes 10-07-2021 to 12-06-2024 Carson Sullivan, DO - 12/06/2024 11:15 AM EDTCarson Sullivan, DO - 10/10/2024 9:40 AM EDTTelephone Encounter - Alisa Fernandez, [facility] - 06/12/2024 10:41 AM EDT Note Date & Type Note Facility 12-06-2024 History of Presen t illness Narrative Subjective Patient ID: Drea Tellez is a 79 y.o. female. Laquita presents today for a CV recheck. She is taking all of her medications. She does not have any side effects. She no longer takes lorazepam. She is still seeing pain clinic for her chronic back pain in his using oxycodone. They are managing that. She still needs omeprazole daily. She has a pop addiction. She defers EGD and wants to try stop pop-diet coke. She notices that it is worse after that. She is taking rosuvastatin and tolerating that well. She is using trazodone 100 mg at bedtime and that is working well. She had labs done in October at [facility] from the varnish filterer. The following portions of the patient's history were reviewed and updated as appropriate: allergies, current medications, past family history, past medical history, past social history, past surgical history, problem list, and medication reconciliation was completed including current medication and post discharge medication. Review of Systems Objective Physical Exam Vitals reviewed. Constitutional: General: She is not in acute distress. Appearance: Normal appearance. She is overweight. She is not ill-appearing. HENT: Head: Normocephalic. Eyes: General: No scleral icterus. Extraocular Movements: Extraocular movements intact. Conjunctiva/sclera: Conjunctivae normal. Cardiovascular: Rate and Rhythm: Normal rate and regular rhythm. Heart sounds: Normal heart sounds. No murmur heard. Pulmonary: Effort: Pulmonary effort is normal. No respiratory distress. Breath sounds: Wheezing (Scattered bilaterally) present. No rhonchi or rales. Abdominal: General: Bowel sounds are normal. Palpations: Abdomen is soft. Tenderness: There is no abdominal tenderness. Musculoskeletal: Right lower leg: No edema. Left lower leg: No edema. Neurological: General: No focal deficit present. Mental Status: She is alert and oriented to person, place, and time. Psychiatric: Mood and Affect: Mood normal. Behavior: Behavior normal. Thought Content: Thought content normal. Judgment: Judgment normal. Assessment/Plan Drea was seen today for follow-up. Diagnoses and all orders for this visit: 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 ([facility]) Blood pressure at goal. We will try to track down the labs at the varnish filterer ordered for our records. Call we put out to the hospital to send the labs over. Gastroesophageal reflux disease without esophagitis Stable. Long-term risks of PPIs discussed. She will try to cut popped out of her diet. That is a goal of hers. Chronic obstructive pulmonary disease, unspecified COPD type [place] - szjbnbcmgc-efnyojhq-cehuipegio (BREZTRI AEROSPHERE) 160-9-4.8 mcg/actuation HFA aerosol inhaler; Inhale 2 puffs in the morning and at bedtime. She is noticed to have a wheeze bilaterally. She is interested in starting an inhaler. We will try Breztri 2 puffs twice a day. Sleep disturbance Stable. Continue trazodone Need for immunization against influenza - Influenza, Trivalent, Adjuvanted Other orders - fluticasone propionate (FLONASE) 50 mcg/actuation nasal spray; Administer 1 spray into each nostril in the morning. - alendronate (FOSAMAX) 70 mg tablet; Take 1 tablet (70 mg total) by mouth every 7 days. In a.m. with water on empty stomach, nothing else by mouth and remain upright for 30min [facility] History of Presen t illness Narrative [...] Do you have a durable power of assistant district attorney?: Yes Cognitive Screening Do you have [...] year (around 10/10/2025). documented in this encounter [facility] 06-12-2024 Miscellaneous Notes Formattin g of this note might be different from the original. Patient called and wanted a referral to at [facility]. He specializes in shoulders. Okay. Referral is in documented in this encounter [facility] 06-12-2024 Telephone encount er Note Patient called and wanted a referral to at [facility]. He specializes in shoulders. [facility] 06-12-2024 Telephone encount er Note Okay. [facility] History of Presen t illness Narrative Subjective Patient ID: Drea Tellez is a 79 y.o. female. Drea Tellez is 79 y.o. female that presents to clinic for CV recheck. She is taking her medications. She is not having any side effects. Her post herpetic neuralgia pain is better. She had labs done in March from the varnish filterer. Her kidney tests have improved. She sees pain management. Patient is on 5mg oxycodone 5 times a day with benefit. She no longer takes lorazepam. Review of Systems Objective Physical Exam Vitals reviewed. Exam conducted with a equipment inspector present (Antonio Orozco MS 3). Constitutional: General: [...] panel, TSH and T4. Follow up with varnish filterer as directed. Avoid NSAIDs. She is overweight. [...] years ago in 2005 from surgeon in [place] which showed hiatal hernia but her stomach was pristine . She may need another EGD if she is unable to get off the PPI. So far has no worrisome symptoms such as weight loss or dysphagia. She was encouraged to quit smoking as that is probably aggravating her GERD. Note composed in part by Antonio Orozco MS 3. 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 She did get an vwae-rok-vjdbyzd Biofreeze patch with mild benefit. She regrets [...] visit in 2 weeks. [facility] Miscellaneous Notes* Telephone Encounter - Do Ryan [...] 9:50 AM EST Notified documented in this encounterTri[facility] Telephone encounter Note* Telephone Encounter - Do Ryan - 03/04/2024 9:50 AM EST PATIENT WENT TO THE er MONDAY FOR HER SHINGLES, THEY ARE VERY PAINFUL AND BURNING. SHE IS TAKING TYLENOL BUT ITS NOT HELPING, SHE WAS WONDERING IF YOU COULD RECOMMEND SOMETHING TO HELP. COMES IN 03/12 [facility]12-30-2024 Telephone encounter Note* Telephone Encounter - Carson Sullivan DO - 03/04/2024 9:50 AM EST She can try a Lidoderm patch if the lesions are closed. She does have pain pills available and she can not take Motrin so there is not a whole lot more to offer. Pain management can do injections butI do not think she sees pain management anymore [facility]12-30-2024 Telephone encounter Note* Telephone Encounter - Do Ryan - 03/04/2024 9:50 AM EST Notified [facility]11-27-2024 Miscellaneous Notes* Telephone Encounter - Sandra Hernandez CMA - 01/31/2024 12:45 PM EST Pt requesting refill on levothyroxine. [facility]. documented in this encounterTri[facility] Telephone encounter Note* Telephone Encounter - Sandra Hernandez CMA - 01/31/2024 12:45 PM EST Pt requesting refill on levothyroxine. [facility]. [facility] History of Present illness Narrative* Carson Sullivan [...] Risks of benzodiazepines and opioids discussed. The varnish filterer recommended to stop duloxetine if it wasn't [...] return for the scan. 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 documented in this encounter[facility] Miscellaneous Notes* Telephone Encounter - Imani Leone - 09/28/2023 10:15 AM EDT Patient called to request pain management referral discussed at her last visit. documented in this encounter[facility] Telephone encounter Note* Telephone Encounter - Imani Leone - 09/28/2023 10:15 AM EDT Patient called to request pain management referral discussed at her last visit. [facility]07-[facility] History of Present illness Narrative* Carson Sullivan [...] moderate relief and typically it does provide pyaz-uj-sbrdnidt relief but she notes that it does [...] mouth in the morning. documented in this encounter[facility] History of Present illness Narrative* NIRANJAN Herrera - 08/31/2023 11:58 AM EDT The OARRS/MAPPS database was reviewed today and found to be appropriate. No indication of medication diversion, or non compliance. NIRANJAN Herrera 08/31/23 1159 documented in this encounterTri[facility] Miscellaneous Notes* Telephone Encounter - NIRANJAN Herrera - 08/24/2023 2:[address] Sullivan it looks like per OARRs that you have been prescribing this for her but she is due for an appointment Staff please set up controlled substance agreement by the end of September with me or Dr. Sullivan documented in this encounterTri[facility] Telephone encounter Note* Telephone Encounter - NIRANJAN Herrera - 08/24/2023 2:[address] Sullivan it looks like per [facility]s that you have been prescribing this for her but she is due for an appointment Staff please set up controlled substance agreement by the end of September with me or Dr. Sullivan [facility]06-11-2024 Miscellaneous Notes* Telephone Encounter - Julisa Sullivan - 08/15/2023 4:13 PM EDT Called pt to remind her of MAW appointment August 16 at 1140. documented in this encounterTri[facility] Telephone encounter Note* Telephone Encounter - Julisa Sullivan - 08/15/2023 4:13 PM EDT Called pt to remind her of MAW appointment August 16 at 1140. [facility]04-26-[facility]24 Miscellaneous Notes* Telephone Encounter - Kim Diamond [...] plans to complete soon. documented in this encounterTri[facility] Telephone encounter Note* Telephone Encounter - Kim [...] regarding cologuard. Patient plans to complete soon. [facility] [id number] History of Present illness Narrative* Carson Mustapha Neal, DO - 06/28/2023 11:30 AM EDT Subjective Patient [...] earlier this year. She is seeing the varnish filterer and her last labs showed her kidney [...] with stage 3a chronic kidney disease (CMS-HCC) - Basic Metabolic Panel; Future Blood pressure essentially at goal. Check BMP. Follow-up with varnish filterer as directed. Acquired hypothyroidism - Thyroid profile [...] cardiovascular events and strokes. documented in this encounterTri[facility] History of Present illness Narrative* Good Dan APRN-SECURITIES SUPERVISOR - 04/28/2023 10:00 AM EST [address] [facility] [address] Patient: Drea Tellez Date of : 1945 [...] appointment with Orthopedics May 10 with from [place]. The current pain is bothering her enough where she can not get to sleep and it rarely 'let us up'. She feels like her [place] barely takes the edge off her pain and she is also usingsome topical nqcn-rfd-jsudkot analgesics. She was also participating in some [...] Hyperlipidemia Hypokalemia Migraine Osteopenia Peripheral vascular disease ([facility]) Screen for colon cancer 02/04/2020 cologuard-negative [...] by mouth every morning 90 tablet 1 vj-noe-spcco-calcium carb-K1 400 mcg-500 mg calcium-20 mcg tablet [...] or hospitalization) Allergies: Sulfa (sulfonamide antibiotics), Hydrochlorothiazide, Vzwbkxp-cjo-xdx reductase inhibitors, and Nickel Tobacco History: Social [...] area. Discussed limits of Tylenol with taking [place]. Parking pass renewed for the next 5 [...] HERRERA APRN-CNP 05/01/23 0902 documented in this encounterTri[facility] History of Present illness Narrative* KRISTIN Contreras [...] limited to risks of scarring, darker or surveillance officer pigmentary changes, recurrence, incomplete removal and infection. 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 The pain has been going on for [...] (CMS-HCC) Genitourinary Stage 3b chronic kidney disease ([facility] Other Visit Diagnoses Chronic pain of both [...] Hyperlipidemia Hypokalemia Migraine Osteopenia Peripheral vascular disease ([facility]) Screen for colon cancer 02/04/2020 cologuard-negative Spinal [...] by mouth every morning 90 tablet 1 kq-xsc-eqnyw-calcium carb-K1 400 mcg-500 mg calcium-20 mcg tablet [...] or hospitalization) Allergies: Sulfa (sulfonamide antibiotics), Hydrochlorothiazide, Hvjnxrx-roh-xox reductase inhibitors, and Nickel Tobacco History: Social [...] Drug Screen, Urine; Future Peripheral vascular disease ([facility]) Stage 3b chronic kidney disease ([facility]) Smoker Follow-up: Will obtain new x-rays bilateral shoulders, order sent to the [facility]. Agree with stopping physical therapy if it is not making the pain any better. Patient would like a referral to Orthopedics in [place], this was placed in system. She should [...] file.Pt is due for refill 2/3 - [place] Rx placed for this specific date. At next appt, consider lowering dose to lowest effective dose to help control pain. NIRANJAN HERRERA APRN-CNP 04/02/23 1244 documented in this encounterTri[facility]01[facility] Evaluation note* Encounter Date Diagnosis Assessment Notes [...] WNL I asked the patient to continue obmz-oft-zjrjmeu vitamin D supplement 1999Mar, Nephrolithiasis (ICD-10 - N20.0) Renal ultrasound shows nonobstructive bilateral renal calculi which are small in size. I asked the patient to continue ample water intake [employer] Other [id number] History of Present illness Narrative* NIRANJAN Herrera - 03/03/2023 1:29 PM EST The OARRS/MAPPS database was reviewed today and found to be appropriate. No indication of medication diversion, or non compliance. Pt is due for refill 03/11/22, last filled 02/08/[address] Sullivan who is out of town. NIRANJAN Herrera 03/03/23 6014 documented in this [facility]12-28-2023 Miscellaneous Notes* Telephone Encounter - Farnaz Bennett CMA - 03/02/2023 2:51 PM EST Pt called and would like a refill on her NORCO. Pharmacy is listed and correct. * Telephone Encounter - NIRANJAN Herrera - 03/02/2023 2:51 PM EST Pt is due for refill 03/11 - I will send but pharmacy will not fill until this time documented in this [facility]12-28-2023 Telephone encounter Note* Telephone Encounter - Farnaz Bennett CMA - 03/02/2023 2:51 PM EST Pt called and would like a refill on her NORCO. Pharmacy is listed and correct. [facility]12-[facility] Telephone encounter Note* Telephone Encounter - NIRANJAN Herrera - 03/02/2023 2:51 PM EST Pt is due for refill 03/11 - I will send but pharmacy will not fill until this time [facility]08-08-2023 Evaluation note* Encounter Date Diagnosis [...] WNL I asked the patient to continue gpkl-rvf-xiytbbd vitamin D supplement 1999Oct, Nephrolithiasis (ICD-10 - N20.0) Renal ultrasound shows nonobstructive bilateral renal calculi which are small in size. I asked the patient to continue ample water intake [facility] Other 04-04-2023 Evaluation note* Encounter Date Diagnosis [...] is low at 19. I patient with tynt-aoq-arhqynn vitamin D supplement 1999Jun, Nephrolithiasis (ICD-10 - N20.0) Renal ultrasound shows nonobstructive bilateral renal calculi which are small in size. I asked the patient to continue ample water intake [facility] Other 02-21-2023 Evaluation note* Encounter Date Diagnosis [...] at home and to follow low-salt diet [facility] Other 09-01-2022 NoteOPERATIVE NOTE OPERATION DATE: 11/04/2021 [...] ensuring mobility, phacoemulsification was performed in a dcvnjbd-tjv-iwpsep-type fashion. After all nuclear material had been [...] up the following day for postoperative care.[facility] [id number] NoteHISTORY AND PHYSICAL EXAMINATION Date:11/03/2021 HISTORY: Patient [...] decline other than that of cataract. 2. EVPVC-13-Evl patient was briefed in the office and [...] and go forward with this elective procedure.[facility] [id number] NoteOPERATIVE NOTE OPERATION DATE: 10/07/2021 SURGEON: Sabrina [...] ensuring mobility, phacoemulsification was performed in a jrkwptu-vyy-noocpo-type fashion. After all nuclear material had been [...] up the following day for postoperative care.[facility] 10-07-2021 NoteHISTORY AND PHYSICAL EXAMINATION [...] decline other than that of cataract. 2. ZJBUZ-35-Qqd patient was briefed in the office and [...] and go forward with this elective procedure.[facility]* Diagnosis Actinic keratosis- Primary documented in this encounter [facility]* Diagnosis 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 documented in this encounter [facility]* Diagnosis Lumbosacral spondylosis without myelopathy documented in this encounter [facility]* Diagnosis Chronic pain of both shoulders- Primary Peripheral vascular disease ([facility]) Unspecified peripheral vascular disease Stage 3b chronic kidney disease ([facility]) Smoker Tobacco use disorder Lumbosacral spondylosis without myelopathy [facility]* Diagnosis Essential hypertension Unspecified essential hypertension documented in this encounter [facility]* Diagnosis Primary osteoarthritis of both shoulders- Primary Tobacco dependence syndrome Tobacco use disorder Lumbosacral spondylosis without myelopathy documented in this encounter [facility]* Diagnosis Lumbosacral spondylosis without myelopathy documented in this encounter [facility]* Diagnosis Lumbosacral spondylosis without myelopathy documented in this encounter [facility]* Diagnosis Special screening for malignant neoplasm of colon- Primary Special screening for malignant neoplasms, colon documented in this encounter [facility]* Diagnosis 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 ([facility])- Primary Acquired hypothyroidism Unspecified hypothyroidism Fibromyalgia Unspecified myalgia and myositis Anxiety Anxiety state, unspecified Postlaminectomy syndrome, not elsewhere classified Sleep disturbance Unspecified sleep disturbance Tobacco dependence syndrome Tobacco use disorder Spinal stenosis of lumbar region without neurogenic claudication Hypokalemia Hypopotassemia Hyperlipidemia, unspecified hyperlipidemia type documented in this encounter [facility]* Diagnosis Postlaminectomy syndrome, not elsewhere classified- Primary [facility]* Diagnosis Postlaminectomy syndrome, not elsewhere classified documented in this encounter [facility]* Diagnosis Postlaminectomy syndrome, not elsewhere classified documented in this encounter [facility]* Diagnosis Fibromyalgia Unspecified myalgia and myositis documented in this encounter [facility]* Diagnosis Essential hypertension Unspecified essential hypertension documented in this encounter [facility]* Diagnosis Anxiety Anxiety state, unspecified documented in this encounter [facility]* Diagnosis Localized osteoarthrosis of both shoulder regions- Primary Postlaminectomy syndrome, not elsewhere classified Tobacco dependence syndrome Tobacco use disorder Fibromyalgia Unspecified myalgia and myositis documented in this encounter [facility]* Diagnosis Medicare annual wellness visit, subsequent- Primary Screening for depression documented in this encounter [facility]* Diagnosis Anxiety- Primary Anxiety state, unspecified Sleep disturbance Unspecified sleep disturbance Cigarette smoker Tobacco use disorder Need for immunization against influenza Need for prophylactic vaccination and inoculation against influenza Fibromyalgia Unspecified myalgia and myositis Postlaminectomy syndrome, not elsewhere classified Hyperlipidemia, unspecified hyperlipidemia type documented in this encounter [facility]* Diagnosis Essential hypertension Unspecified essential hypertension documented in this encounter [facility]* Diagnosis 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 ([facility])- Primary Gastroesophageal reflux disease without esophagitis Esophageal reflux Acquired hypothyroidism Unspecified hypothyroidism Hyperlipidemia, unspecified hyperlipidemia type Hiatal hernia Diaphragmatic hernia without mention of obstruction or gangrene Overweight (BMI 25.0-29.9) Overweight documented in this encounter [facility]* Diagnosis Primary osteoarthritis of both shoulders- Primary [facility]* Diagnosis Medicare annual wellness visit, subsequent- Primary Screening for depression documented in this encounter [facility] SystemEvaluation note* Diagnosis 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 ([facility])- Primary Gastroesophageal reflux disease without esophagitis Esophageal reflux Chronic obstructive pulmonary disease, unspecified COPD type ([facility]) Sleep disturbance Unspecified sleep disturbance Need for immunization against influenza Need for prophylactic vaccination and inoculation against influenza documented in this encounter [facility] SystemHistory general Narrative - Reported* Type Description [...] Surgical History cataract surgery Hospitalization History See [facility] Other History general Narrative - Reported* Type [...] CANCER BIOPSY ON NOSE Hospitalization History See [facility] Other InstructionsNot on filedocumented in this encounter [facility] SystemInstructionsNot on filedocumented in this encounter [facility] SystemInstructionsNot on filedocumented in this encounter [facility]ructionsNot on filedocumented in this encounter [facility]ructionsNot on filedocumented in this encounter [facility] SystemInstructionsNot on filedocumented in this encounter [facility] SystemInstructionsNot on filedocumented in this encounter [facility] SystemInstructions* Attachments The following attachments cannot be sent through Care Everywhere. * Shoulder Pain Discharge Instructions (Ecuadorean) documented in this encounterUK HealthcareMed ePad SystemInstructionsNot on file documented in this encounterSum[facility] SystemInstructions* Attachments The following attachments cannot be sent through Care Everywhere. * Shoulder Pain Discharge Instructions (Ecuadorean) documented in this encounterProGreil [facility] Kwestr SystemInstructionsNot on file documented in this encounterProRiverside Methodist HospitalMed ePad SystemInstructionsNot on file documented in this encounterProGreil Memorial [facility] Kwestr SystemInstructionsNot on file documented in this encounterProGreil Memorial [facility] Kwestr SystemInstructionsNot on file documented in this encounterProRiverside Methodist HospitalMed ePad SystemInstructionsNot on file documented in this encounterProRiverside Methodist HospitalMed ePad SystemInstructionsNot on file documented in this encounterUK HealthcareMed ePad SystemInstructionsNot on file documented in this encounterProGreil Memorial [facility] Hospital Kwestr SystemInstructionsNot on file documented in this encounterProGreil Memorial [facility] Kwestr SystemInstructionsNot on file documented in this encounterSum[facility] SystemReason for referral (narrative)* Consultation (Routine) - Pending Review Specialty Diagnoses / Procedures Referred By Darby mon Referred To Contact Orthopedic Surgery Diagnoses Chronic pain of both shoulders Good Dan APRN-CNP [address] [place] [address] [place] [address] [place] [address] [place] [address] Referral ID Status Reason Start Date Expiration Date Visits Requested Visits Authorized [id number] Pending Review Specialty Services Required 03/30/2023 03/29/2024 1 1 [facility] Purpose Family History No Family History [...] kid w cr kid I-IV April 09, 025 10:54am Chronic kidney disease, stage 3a Februar y 2024 10:54am Hyponatremia April 09, 2024 1 0:54am Nephrolithiasis April 09, 2024 1 0:54am Smoking greater than 40 pack years u fatuma2024 10:54am Vitamin D deficiency April 09, 2024 10:54am Reason for Referral Specialty Diagnoses / Procedures Referred By Contmarium t Referred To Contact Diagnoses Carson Navarro, DO [address], [place] [address] Referral ID Status Reason Start Date Expiration Date V isits Requested Visits Authorized [id number] Pending Review 1 1 Specialty Diagnoses / Procedures Referred By Contac t Referred To Contact Diagnoses Lumbosacral spondylosis without myelopathy Procedures Disability/Handicap Good Tran, PROCUREMENT INTERN-SECURITIES SUPERVISOR [address] [place] [address] Referral ID Status Reason Start Date Expiration Date V isits Requested Visits Authorized [id number] Pending Review 04/28/2023 04/27/2024 1 1 Additional Source Comments INFORMATION SOURCE (unrecogn ized section and content) DATE CREATED AUTHOR 05/30/2021 [facility] DATE CREATED AUTHOR AUTHOR'S ORGANIZ ATION 06/10/2022 [facility] DATE CREATED AUTHOR AUTHOR'S ORGANIZ ATION 04/09/2023 [facility] DATE CREATED AUTHOR AUTHOR'S ORGANIZ ATION 05/14/2023 [facility] DATE CREATED AUTHOR AUTHOR'S ORGANIZ ATION 07/16/2023 [facility] DATE CREATED AUTHOR AUTHOR'S ORGANIZ ATION 12/31/2023 [facility] DATE CREATED AUTHOR AUTHOR'S ORGANIZ ATION 06/09/[address] [facility] DATE CREATED AUTHOR AUTHOR'S ORGANIZ ATION 12/10/2024 [facility] REASON FOR [...] controlled Reason Comments Hypertension Reason Comments maw Reason Comments Follow-up Controlled medicatio ns Care Teams (unrecognized sec tion and content) [...] October 24, 2023 End: October 24, 2023 Line Locator Relationship Specialty Start Date End Date Carson Sullivan MustaphaDO [address], [place] [address] PCP - General Family Medicine 02/14/17 Line Locator Relationship Specialty Start Date End Date Carson Sullivan MustaphaDO [address], [place] [address] PCP - General Family Medicine 02/14/17 Line Locator Relationship Specialty Start Date End Date Carson Sullivan DO [address] [place] [address] PCP - General Family Medicine 02/14/17 Team [...] April 09, 2024 End: April 09, 2024 Line Locator Relationship Specialty Start Date End Date Carson Sullivan DO [address] [place] [address] PCP - General Family Medicine 02/14/17 Line Locator Relationship Specialty Start Date End Date Carson Sullivan DO [address] [place] [address] PCP - General Family Medicine 02/14/17 Line Locator Relationship Specialty Start Date End Date Carson Sullivan DO [address] [place] [address] PCP - General Family Medicine 02/14/17 Line Locator Relationship Specialty Start Date End Date Carson Sullivan DO [address] [place] [address] PCP - General Family Medicine 02/14/17 Line Locator Relationship Specialty Start Date End Date Carson Sullivan DO [address] [place] [address] PCP - General Family Medicine 02/14/17 Line Locator Relationship Specialty Start Date End Date Carson Sullivan DO [address] [place] [address] PCP - General Family Medicine 02/14/17 Line Locator Relationship Specialty Start Date End Date KalyantyroneCarson cordero DO [address] [place] [address] PCP - General Family Medicine 02/14/17 Line Locator Relationship Specialty Start Date End Date KalyantyroneCarson cordero DO [address] [place] [address] PCP - General Family Medicine 02/14/17 Line Locator Relationship Specialty Start Date End Date KalyantyroneCarson cordero DO [address] [place] [address] PCP - General Family Medicine 02/14/17 Line Locator Relationship Specialty Start Date End Date KalyantyroneCarson cordero DO [address] [place] [address] PCP - General Family Medicine 02/14/17 Line Locator Relationship Specialty Start Date End Date KalyantyroneCarson cordero DO [address] [place] [address] PCP - General Family Medicine 02/14/17 Line Locator Relationship Specialty Start Date End Date KalyantyroneCarson cordero DO [address] [place] [address] PCP - General Family [facility] 02/14/17 Line Locator Relationship Specialty Start Date End Date Carson Sullivan DO [address] [place] [address] PCP - [facility] 02/14/17 Line Locator Relationship Specialty Start Date End Date Carson Sullivan DO [address] [place] [address] PCP - [facility] 02/14/17 Line Locator Relationship Specialty Start Date End Date Carson Sullivan DO [address] [place] [address] PCP - [facility] 02/14/17 Line Locator Relationship Specialty Start Date End Date Carson Sullivan DO [address] [place] [address] PCP - [facility] 02/14/17 Goals (unrecognized section and content) Goals [...] BE BASED ON THE PRIMARY CLINICAL RECORDS. [facility]. provides no warranty or guarantee of the accuracy or completeness of information in this document.
--- NOTE | 2024-12-19 13:30 | PM.CN ---
Consult Note: HPI Data of Consult Patient: known to practice within the last 3 years Requesting Physician: Cata Wang NP Primary Care Provider: ADALGISA DE JESUS Consult Narrative Reason for consult: f/u Narrative: Drea Tellez a pleasant 79 year old female presents for evaluation of chronic bilateral shoulder and low back pain. pt has a longstanding hx of low back pain over 25 years and chronic moderate to severe bilateral shoulder pain. failed tylenol, heat, ice. cannot take NSAIDs with CKD. currently on oxycodone 5mg 5x/day PRN moderate to severe pain without side effects, notes moderate pain relief for 4 hours with functional improvement. denies falls since last visit. since last visit pt has been engaged in HEP with significant improvement in bilateral shoulder pain and ROM, is no longer considering joint replacement surgery. pain and functional ability well controlled with current medication regimen, reports this is the best she has felt in years. cc:: CC: Cata Wang NP Review of Systems ROS Musculoskeletal Reports: back pain and joint pain PFSH PFSH Social History Little interest or pleasure in doing things: not at all Feeling down, depressed, or hopeless: not at all Meds Home Medications and Allergies Home Medications ?Medication ?Instructions ?Recorded ?Confirmed ?Type amlodipine 10 mg tablet (Norvasc) 10 mg PO DAILY 10/16/23 03/01/24 History ascorbic acid (vitamin C) 500 mg mg PO 10/16/23 History capsule aspirin 81 mg tablet,delayed 81 mg PO DAILY 10/16/23 03/01/24 History release (Garth Low Dose Aspirin) cholecalciferol (vitamin D3) 125 125 mcg PO DAILY 10/16/23 03/01/24 History mcg (5,000 unit) capsule duloxetine 60 mg capsule,delayed 60 mg PO DAILY 10/16/23 03/01/24 History release levothyroxine 112 mcg tablet 112 mcg PO DAILY 10/16/23 03/01/24 History (Euthyrox) lisinopril 40 mg tablet (Zestril) 40 mg PO DAILY 10/16/23 03/01/24 History lorazepam 1 mg tablet 1 mg PO Q12H PRN agitation 10/16/23 03/01/24 History lutein 20 mg capsule 20 mg PO DAILY 10/16/23 10/16/23 History metoprolol succinate 25 mg 25 mg PO DAILY 10/16/23 03/01/24 History tablet,extended release 24 hr (Toprol XL) omeprazole 20 mg capsule,delayed 20 mg PO BID 10/16/23 03/01/24 History release oxycodone 5 mg capsule 5 mg PO .COMPLEX 10/16/23 03/01/24 History valacyclovir 1 gram tablet 1,000 mg PO Q8H 7 days #21 tabs 03/01/24 Rx naloxone 4 mg/actuation nasal 1 spray intranasal Q2M #1 ea 03/20/24 Rx spray (Narcan) oxycodone 5 mg tablet See Rx Instructions .Route 03/20/24 Rx .COMPLEX PRN pain #150 tabs oxycodone 5 mg tablet 5 mg PO .5 times/day PRN pain #150 04/23/24 Rx tabs oxycodone 5 mg tablet See Rx Instructions .Route 05/21/24 Rx .COMPLEX PRN pain #150 tabs oxycodone 5 mg tablet 5 mg PO .5x/day PRN pain #150 tabs 06/21/24 Rx oxycodone-acetaminophen 5 mg-325 1 tab PO Q4H PRN pain #150 tabs 07/22/24 Rx mg tablet (Percocet) oxycodone 5 mg tablet See Rx Instructions .Route 07/24/24 Rx .COMPLEX PRN pain #150 tabs oxycodone 5 mg tablet See Rx Instructions .Route 08/21/24 Rx .COMPLEX PRN pain #150 tabs oxycodone 5 mg tablet 5 mg PO .5x/day PRN pain #150 tabs 09/19/24 Rx oxycodone 5 mg tablet See Rx Instructions .Route 10/21/24 Rx .COMPLEX PRN pain #150 tabs oxycodone 5 mg tablet See Rx Instructions .Route 11/18/24 Rx .COMPLEX PRN pain #150 tabs Allergies Allergy/AdvReac Type Severity Reaction Status Date / Time hydrochlorothiazide Allergy Unknown Unknown Verified 03/01/24 14:24 Ketwqxa-FYN-WwO Reductase Allergy Unknown Unknown Verified 03/01/24 14:24 Inhibitor Sulfa (Sulfonamide Allergy Unknown Unknown Verified 03/01/24 14:24 Antibiotics) Exam Constitutional Documenting provider has reviewed patient's vital signs: yes Common normals: no apparent distress, oriented x3, healthy appearing, alert and well nourished General appearance: cooperative HENMT Common normals: normocephalic, hearing grossly normal bilaterally and moist oral mucous membranes Head and scalp: normocephalic Eye Common normals: PERRL Pupil: PERRL Neck & C-Spine Common normals: full ROM General: normal visual inspection Chest Common normals: inspection of chest normal Respiratory Common normals: normal respiratory effort, no retractions and no use of accessory muscles Back & Pelvis Lumbar spine/lower back: ROM limited, pain with ROM and straight leg raise negative bilaterally Extremity Right upper extremity: shoulder joint Left upper extremity: shoulder joint Other: pain over bilateral AC joints increased pain with crossbody adduction Neuro Common normals: oriented x3 Sensorium/orientation: alert Psych Common normals: mental status grossly normal, thought process normal, cooperative, affect normal, speech normal and activity/motor behavior normal Speech: normal speech Thought process: normal thought process Results Additional Findings Additional findings: If on a controlled substance or opioids, I have checked an [place] report on this patient and there are no aberrancies noted in the prescribing history.??If on a controlled substance or opioid a drug screen was completed and reviewed within the last year, and if there has not been a drug screen completed we ordered one today to monitor higher risk, state monitored pain medication use. As part of providing excellent, safe, comprehensive care, the following was completed at our patient's visit: 1. A medication reconciliation and review to ensure accurate knowledge of current/active medications, including asking our patients to inform us about any pnwr-sqx-xdvvelz medications or herbal remedies/nutritional supplements/alternative remedies. 2. A review to specifically ensure our patients have had annual screening for screening for depression, screening for tobacco use, and screening for unhealthy alcohol use. For concerning screenings had a discussion with the patient, provided patient education, and recommended follow-up with primary care provider when appropriate. If patient noted with a risk of falling, they received education on strength, gait, and balance training to prevent future risk of falling. Portions of this note may have been carried over from the previous visit and updated as appropriate. Please note this office utilizes paper charting in addition to the electronic medical record. A list of current medications, vitals, and PMH is available there as the clinical staff outside of myself do not have access to [employer] charting during the clinic day operations. As part of providing quality comprehensive care the current medications, vitals, and PMH were reviewed in the paper chart. Assessment and Plan Assessment and Plan (1) Polyarthralgia: (2) Osteoarthritis of shoulders, bilateral: (3) Chronic prescription opiate use: Assessment and Plan: I feel these medications are improving the patient's quality of life and allow them to tolerate activities of daily living as well as participate in recreational activity.? The patient does not report intolerable side effects. The patient is NOT opioid naive and non-pharmacologic and non-opioid treatment has failed to significantly relieve the patient's pain and improve functionality. The patient has a diagnosis that is related to a somatic or visceral pain etiology. ? ?? I reviewed with the patient the potential risks and side effects with the use of? opioid medications including but not limited to respiratory depression,? sedation, and even . Within the last 12 months I have verified the patient has access to naloxone should? these effects occur. The patient was advised to let? their family know they had Naloxone in case they would need to administer? the medication. I advised the patient to avoid the use of any other? sedation substances including alcohol, THC, and benzodiazepines while? taking opioid medications due to the risk of compounding side effects and? detrimental outcomes. 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 ?? A drug screen was completed within the last year, and no aberrancies were noted regarding their use of controlled substances. The patient understands they are subject to the terms and conditions of the pain contract that they have signed. ? ?? I have checked an [place] report on this patient today and there are no aberrancies noted in the prescribing history.? (4) Lumbar stenosis with neurogenic claudication: (5) Lumbar postlaminectomy syndrome: (6) Cervical postlaminectomy syndrome: Plan pt declining interventional therapy for chronic bilateral shoulder pain and lumbar stenosis with NC. pt notes that her pain is well controlled with her current medication regimen. we discussed the risks vs benefits of her medication regimen, and with her polyarthralgia this is the best she has felt in years with oxycodone 5mg five times daily as needed for moderate to severe pain. she has failed tylenol and duloxetine, cannot take NSAIDs due to CKD. maintain medications and f/u 3 months, sooner if needed
--- NOTE | 2024-12-19 13:33 | PM.CN ---
Consult Note: HPI Data of Consult Requesting Physician: Cata Wang NP Primary Care Provider: ADALGISA DE JESUS Consult Narrative cc:: CC: Cata Wang NP [facility] Social History Little interest or pleasure in doing things: not at all Feeling down, depressed, or hopeless: not at all Meds Home Medications and Allergies Home Medications ?Medication ?Instructions ?Recorded ?Confirmed ?Type amlodipine 10 mg tablet (Norvasc) 10 mg PO DAILY 10/16/23 03/01/24 History ascorbic acid (vitamin C) 500 mg mg PO 10/16/23 History capsule aspirin 81 mg tablet,delayed 81 mg PO DAILY 10/16/23 03/01/24 History release (Garth Low Dose Aspirin) cholecalciferol (vitamin D3) 125 125 mcg PO DAILY 10/16/23 03/01/24 History mcg (5,000 unit) capsule duloxetine 60 mg capsule,delayed 60 mg PO DAILY 10/16/23 03/01/24 History release levothyroxine 112 mcg tablet 112 mcg PO DAILY 10/16/23 03/01/24 History (Euthyrox) lisinopril 40 mg tablet (Zestril) 40 mg PO DAILY 10/16/23 03/01/24 History lorazepam 1 mg tablet 1 mg PO Q12H PRN agitation 10/16/23 03/01/24 History lutein 20 mg capsule 20 mg PO DAILY 10/16/23 10/16/23 History metoprolol succinate 25 mg 25 mg PO DAILY 10/16/23 03/01/24 History tablet,extended release 24 hr (Toprol XL) omeprazole 20 mg capsule,delayed 20 mg PO BID 10/16/23 03/01/24 History release oxycodone 5 mg capsule 5 mg PO .COMPLEX 10/16/23 03/01/24 History valacyclovir 1 gram tablet 1,000 mg PO Q8H 7 days #21 tabs 03/01/24 Rx naloxone 4 mg/actuation nasal 1 spray intranasal Q2M #1 ea 03/20/24 Rx spray (Narcan) oxycodone 5 mg tablet See Rx Instructions .Route 03/20/24 Rx .COMPLEX PRN pain #150 tabs oxycodone 5 mg tablet 5 mg PO .5 times/day PRN pain #150 04/23/24 Rx tabs oxycodone 5 mg tablet See Rx Instructions .Route 05/21/24 Rx .COMPLEX PRN pain #150 tabs oxycodone 5 mg tablet 5 mg PO .5x/day PRN pain #150 tabs 06/21/24 Rx oxycodone-acetaminophen 5 mg-325 1 tab PO Q4H PRN pain #150 tabs 07/22/24 Rx mg tablet (Percocet) oxycodone 5 mg tablet See Rx Instructions .Route 07/24/24 Rx .COMPLEX PRN pain #150 tabs oxycodone 5 mg tablet See Rx Instructions .Route 08/21/24 Rx .COMPLEX PRN pain #150 tabs oxycodone 5 mg tablet 5 mg PO .5x/day PRN pain #150 tabs 09/19/24 Rx oxycodone 5 mg tablet See Rx Instructions .Route 10/21/24 Rx .COMPLEX PRN pain #150 tabs oxycodone 5 mg tablet See Rx Instructions .Route 11/18/24 Rx .COMPLEX PRN pain #150 tabs Allergies Allergy/AdvReac Type Severity Reaction Status Date / Time hydrochlorothiazide Allergy Unknown Unknown Verified 03/01/24 14:24 Iktyxgz-FEU-WuF Reductase Allergy Unknown Unknown Verified 03/01/24 14:24 Inhibitor Sulfa (Sulfonamide Allergy Unknown Unknown Verified 03/01/24 14:24 Antibiotics) Assessment and Plan Assessment and Plan (1) Polyarthralgia: (2) Osteoarthritis of shoulders, bilateral: (3) Chronic prescription opiate use: Assessment and Plan: I feel these medications are improving the patient's quality of life and allow them to tolerate activities of daily living as well as participate in recreational activity.? The patient does not report intolerable side effects. The patient is NOT opioid naive and non-pharmacologic and non-opioid treatment has failed to significantly relieve the patient's pain and improve functionality. The patient has a diagnosis that is related to a somatic or visceral pain etiology. ? ?? I reviewed with the patient the potential risks and side effects with the use of? opioid medications including but not limited to respiratory depression,? sedation, and even . Within the last 12 months I have verified the patient has access to naloxone should? these effects occur. The patient was advised to let? their family know they had Naloxone in case they would need to administer? the medication. I advised the patient to avoid the use of any other? sedation substances including alcohol, THC, and benzodiazepines while? taking opioid medications due to the risk of compounding side effects and? detrimental outcomes. 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 ?? A drug screen was completed within the last year, and no aberrancies were noted regarding their use of controlled substances. The patient understands they are subject to the terms and conditions of the pain contract that they have signed. ? ?? I have checked an [place] report on this patient today and there are no aberrancies noted in the prescribing history.? (4) Lumbar stenosis with neurogenic claudication: (5) Lumbar postlaminectomy syndrome: (6) Cervical postlaminectomy syndrome: Plan pt declining interventional therapy for chronic bilateral shoulder pain and lumbar stenosis with NC. pt notes that her pain is well controlled with her current medication regimen. we discussed the risks vs benefits of her medication regimen, and with her polyarthralgia this is the best she has felt in years with oxycodone 5mg five times daily as needed for moderate to severe pain. she has failed tylenol and duloxetine, cannot take NSAIDs due to CKD. maintain medications and f/u 3 months, sooner if needed
== END 2024-12-19 13:06 | disposition home or self-care (01) ==
LOC: PM 13:05
PROVIDERS: PCP Family Medicine; Visit Provider Nurse Practitioner
DX: M25.50 Pain in unspecified joint (principal); M19.012 Primary osteoarthritis, left shoulder; M19.011 Primary osteoarthritis, right shoulder; Z79.891 Long term (current) use of opiate analgesic; M48.062 Spinal stenosis, lumbar region with neurogenic claudication; M96.1 Postlaminectomy syndrome, not elsewhere classified
CPT/HCPCS: G0463

== ENCOUNTER 2025-01-24 12:33 | Outpatient (OUT) | payer MEDICARE, SELFPAY ==
--- OUTSIDE RECORDS SUMMARY | 2023-11-21 06:00 | XMS_ITS ---
Author Organization The [facility] in [place] Address [address] [place] [address] Care Team Providers Care Finishing Range Feeder Name Role Phone Carson Sullivan DO Primary Care Provider Unavail Jon Rudolph Unavailable [phone] REASON FOR VISIT 1 YEAR-PULMONARY NODULES Encounters Encounter Location Date Provider Diagnosis Pulmonary Medicine [place] [address] [place] [address] 11/21/2023 Jon Villatoro Plan Of Treatment No Information Progress Notes * Drea COON ADOB: (79 yo F)Acc No.[id number]:11/21/2023 UNLOCKED PROGRESS NOTE Follow Up Patient: Laquita NELSONricmariya Blackmon :?Jon Villatoro DODOB:1945???Age:78 Y ???Sex:FemaleDate:4Phone:[phone]:[id number] [facility] [address] [id number]:Carson Sullivan DO Subjective: * Chief Complaints: * 1 . 1 YEAR-PULMONARY NODULES. * Medical History: Objective: * Vitals: Assessment: Plan: * Treatment: * * Electronic signature of Jon Villatoro DO on 01/24/2025 at 12:37 PM ESTSign off status: PendingVisit Status:?R/S By O/P (Rescheduled by Office/Provider) * Provider: Mehdi Villatoro, DO Date: 0 11/21/2023 Generated for Printing/Faxing/eTransmitting on:?01/24/2025 12:37 PM EST
--- OUTSIDE RECORDS SUMMARY | 2023-11-23 04:00 | XMS_ITS ---
Author Organization The [facility] in [place] Address [address] [place] [address] Care Team Providers Care Dry Wall Applicator Name Role Phone Carson Sullivan DO Primary Care Provider Unavail Jon Rudolph Unavailable [phone] REASON FOR VISIT 1 YEAR-PULMONARY NODULES Encounters Encounter Location Date Provider Diagnosis Pulmonary Medicine [place] [address] [place] [address] 11/23/2023 Jon Villatoro Plan Of Treatment No Information Progress Notes * Drea TELLEZ ADOB: (79 yo F)Acc No.[id number]:11/23/2023 UNLOCKED PROGRESS NOTE Follow Up Patient: Drea NELSON :?Jon Villatoro DODOB:1945???Age:78 Y ???Sex:FemaleDate:4Phone:[phone]:[id number] [facility] [address] [place] [id number]:Carson Sullivan DO Subjective: * Chief Complaints: * 1 . 1 YEAR-PULMONARY NODULES. * Medical History: Objective: * Vitals: Assessment: Plan: * Treatment: * * Electronic signature of Jon Villatoro DO on 01/24/2025 at 12:37 PM ESTSign off status: PendingVisit Status:?R/S (Rescheduled) * Provider: Mehdi Villatoro DO Date: 0 11/23/2023 Generated for Printing/Faxing/eTransmitting on:?01/24/2025 12:37 PM EST
--- OUTSIDE RECORDS SUMMARY | 2025-01-24 12:37 | XMS_ITS | Clinical Summary ---
Author Organization [facility] Address [address] [place] [id number] Care Team Providers Care Leasing Property Manager Name Role Phone Unavailable Primary Care Provider Unavailabl e Allergies No known active allergies Medications MedicationSigDispense QuantityRefillsLast FilledStart DateEnd DateStatus VYTORIN 10/40 10 MG-40 MG ORAL TAB Take one(1) tablet daily. 0 Active DARVOCET-N 100 100 MG-650 MG ORAL TAB two tabs bid prn 0 Active PREVACID 30 MG ORAL CPDR Take one(1) capsule daily. 0 Active ADVIL 200 MG ORAL CAP 3 tabs once daily 0 Active CELEBREX 200 MG ORAL CAP Take one(1) capsule twice daily. 0 Active Family History Medical HistoryRelationCommentsCancerFatherLungCoronary Artery DiseaseMother DiabetesMotherRelationStatusCommentsFatherMother Social History Tobacco UseTypesPacks/DayYears UsedDateSmoking Tobacco: Every FeuQrrrjadrys312 Alcohol UseStandard Drinks/WeekCommentsYes0 (1 standard drink = 0.6 oz pure alcohol)ocassionalCommentsNoSex and Gender InformationValueDate Recorded Sex Assigned at BirthNot on fileLegal VgsYqaquj50/02/2012 9:21 AM ESTGender IdentityNot on fileSexual OrientationNot on file Last Filed Vital Signs Vital SignReadingTime TakenCommentsBlood Enjdtgdp559/8009 9:00 AM EDT Uzfxc9724 9:00 AM EDTTemperature--Respiratory Mjjw1924 9:00 AM EDTOxygen Saturation--Inhaled Oxygen Concentration--Qyfgkf98.7 kg (200 lb) 11/15/2004 9:00 AM DHLNxzfwz266.1 cm (5' 5 )11/15/2004 9:00 AM EDTBody Mass Index33.28011/15/2004 9:00 AM EDT Plan of Treatment Health MaintenanceDue DateLast DoneCommentsAnxiety Ufixwbmdv97/07/1966Depression Oswscystf80/07/1966Hepatitis C Djxrdpwwk65/07/1966DTaP,Tdap,Td Vaccine (1 - Tdap)05/10/1966Diabetes Ygjxqcrtf17/07/1993Pneumococcal Vaccine: 50+ (1 of 1 - PCV)05/10/1997Shingrix Vaccine (1 of 2)05/10/1997Bone Density Screening 05/10/2012RSV Vaccine (1 - 1-dose 75+ series)05/10/2022dvance Directive Vqcjvdmivx77/01/2025ovid-19 Vaccine (1 - 2024- season)2024Influenza Vaccine (#1)2024 Insurance * Guarantor: Drea Frederick AAccount TypeRelation to PatientDate of PhoneBilling AddressPersonal/AfmkhiRgbg50/[birth year]/[id number] [address]
--- OUTSIDE RECORDS SUMMARY | 2025-01-24 12:38 | XMS_ITS | Clinical Summary ---
Author Organization [employer] Address [id number] [address] [place] [address] Care Team Providers Care Warehouse Stocker Name Role Phone Carson Sullivan DO Primary Care Provider Allergies Active AllergyReactionsCriticalityNoted DateCommentsDuloxetineOther (See Comments)12/28/2023 Kidney damage VxdktgevidcneziskocYuugftsKlmv55/07/5039XksqqvEnpmWyr12/07/3008Abeequn-Aej-Zhk Reductase Lhvjjuinjchrmf75/07/2023 Other Reaction(s): Myalgia Sulfa (Sulfonamide Antibiotics)ZqqznivebluhattqZzryyb48/12/2022 Medications MedicationSigDispense QuantityRefillsLast FilledStart DateEnd DateStatus naloxone (NARCAN) 4 mg/actuation spray,non-aerosol nasal spray Administer 1 spray (4 mg total) into each nostril as needed. 1 spray Q2-3 minutes as neededActive lutein 10 mg tablet Take 1 tablet by mouth daily.Active polyethylene glycol (GLYCOLAX) 17 gram/dose powder Take 17 g by mouth in the morning.Active Lactobacillus acidophilus (PROBIOTIC) 10 billion cell capsule Take 1 capsule by mouth See Admin Instructions.Active dl-oum-edrfn-calcium carb-K1 400 mcg-500 mg calcium-20 mcg tablet Take 1 tablet by mouth in the morning. 90 tablet 05/02/2022ctive fsh/flx/prim/cur/bor/om3,6,9 5 (OMEGA 3-6-9 FATTY ACIDS ORAL) Active vitamin E 400 units capsule Active ascorbic acid, vitamin C, (VITAMIN C) 1000 mg tablet Active aspirin (LORIE LOW DOSE ASPIRIN) 81 mg Active oxyCODONE (ROXICODONE) 5 mg immediate release tablet 4Active lidocaine (LIDODERM) 5 % Indications:Post-herpetic polyneuropathyPlace 1 patch on the skin daily as needed for pain. Remove & Discard patch within 12 hours or as directed by MD Tao patch 5Active traZODone (DESYREL) 100 mg tablet Take 1 tablet (100 mg total) by mouth nightly as needed for sleep.03/12/2024 Active metoprolol succinate XL (TOPROL XL) 25 mg 24 hr tablet Indications:Essential hypertensionTAKE 1 TABLET BY MOUTH IN THE MORNING 180 tablet 5Active rosuvastatin (CRESTOR) 5 mg tablet Take 1 tablet (5 mg total) by mouth nightly. 30 tablet 5Active lisinopriL (PRINIVIL,ZESTRIL) 40 mg tablet TAKE 1 TABLET BY MOUTH DAILY 90 tablet 5Active guaiFENesin (MUCINEX) 600 mg tablet extended release 12hr Take 1 tablet (600 mg total) by mouth every 12 (twelve) hours as needed.Active latanoprost (XALATAN) 0.005 % ophthalmic solution Administer 1 drop to both eyes nightly.5Active fluticasone propionate (FLONASE) 50 mcg/actuation nasal spray Administer 1 spray into each nostril in the morning. 9.9 mL 5Active fyaqphnjhf-ydjagbiq-qseydfmlpl (BREZTRI AEROSPHERE) 160-9-4.8 mcg/actuation HFA aerosol inhaler Indications:Chronic obstructive pulmonary disease, unspecified COPD type ([facility])Inhale 2 puffs in the morning and at bedtime. 10.7 g 5Active alendronate (FOSAMAX) 70 mg tablet Take 1 tablet (70 mg total) by mouth every 7 days. In a.m. with water on empty stomach, nothing else by mouth and remain upright for 30min 12 tablet 3105Active omeprazole (PriLOSEC) 20 mg capsule Take 1 capsule (20 mg total) by mouth in the morning. 90 capsule 5Active levothyroxine (SYNTHROID, LEVOTHROID) 112 MCG tablet TAKE 1 TABLET BY MOUTH IN THE MORNING 90 tablet 5Active amLODIPine (NORVASC) 10 mg tablet TAKE 1 TABLET BY MOUTH DAILY 90 tablet 5Active Active Problems ProblemNoted DateDiagnosed DateLocalized osteoarthrosis of both shoulder regions 09/26/2023Sleep qgdxyfnppcw54/24/2024enign hypertension with stage 3a chronic kidney mqubhgf2706/28/2023ostlaminectomy syndrome, not elsewhere classified /cquired trigger nrvydu4611/16/20219048Kpsvwja89/13/2022asal cell carcinoma of skin11/16/2021Femoral bruit11/16/2021egeneration of lumbar intervertebral disc11/16/2021isplacement of lumbar intervertebral disc without xmkmesisob16/13/6261Csxndiccpqxh58/13/2022Gastroesophageal reflux disease 11/16/2021Herniation of intervertebral disc11/16/2021Hiatal amibew7711/16/2021 Claeiblimqxplh81/13/4362Nuhbgwlxiqi22/13/5666Lcfswotgaycpgk45/13/2022Lumbosacral spondylosis without jtnxflqxas24/13/8228Zbzjzrpv97/13/4443Cmzeiwrqmu17/13/2022 Reactive airway kcsjhkw3511/16/2021Tobacco dependence ylotkran13/13/2022Vitamin D lcfccjdmca01/13/2022Essential xpgjqmovbsdv04/28/2022llergic kwkulhyb76/19/2021 Complication of surgical tchafmkvq00/23/2019Spinal stenosis of lumbar region 09/14/20175864Zzeqcleyzukmk66/17/2017 Resolved Problems ProblemNoted DateDiagnosed DateResolved DateStage 3b chronic kidney disease /05/2024Stage 4 chronic kidney disease due to vbdcrzdizixa31/26/2023 10/19/2022eripheral vascular /05/20246593Tswfkzzbqp26/12/2017 07/18/2022 Encounters DateTypeDepartmentCare QfbjDqteazetwae51/20/2025Refill [facility] [address] [place] [address] Carson Sullivan DO 12/11/2024Orders Only [facility] [address] [place] [address] Ref Prov, Not In System 12/06/2024 11:15 AM EDTOffice Visit [facility] [address] [place] [address] Carson Sullivan, 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 [facility] ([facility]); Gastroesophageal reflux disease without esophagitis; Chronic obstructive pulmonary disease, unspecified COPD type ([facility]); Sleep disturbance; Need for immunization against yvpbvppos83/03/2025[facility] [address] [place] [address] Carson Sullivan, 12/06/2024Travelfrom Last 3 Months Immunizations ImmunizationAdministration DatesNext DueInfluenza (IM) Preservative Free 12/08/2014Influenza High Dose Preservative Free IM12/04/2020,12/10/2015Influenza Vaccine, Quadrivalent, Uoccqfhowu37/07/2023Influenza, Im Trivalent Preservative 11/25/2016Influenza, Injectable, Epfnjljynmif88/17/2018Influenza, Injectable, quadrivalent (PF)11/25/2019,11/25/2016Influenza, Trivalent, Itrblcjvfk82/03/2025 ,12/28/2023,05/18/2019,11/19/2018,11/20/2017Influenza, Dhisxivqgoz54/20/2014 Pneumococcal Conjugate 13-Fowwyj4403/10/2015,01/28/2013Pneumococcal Polysaccharide 03/14/2016Tdap04/10/2014 Family History Medical HistoryRelationNameCommentsHeart attackFatherHyperlipidemiaFatherOther FatherMalignant Lung TumorGestational diabetesMotherHeart diseaseMotherHeart failureMotherHyperlipidemiaMotherKidney diseaseMotherRenal FailureOtherMother Malignant tumor of cervix; HypercholesterolemiaHeart attackSisterLung cancer SisterPeripheral vascular diseaseSisterRelationNameStatusCommentsFatherMother SisterDeceased Social History Tobacco UseTypesPacks/DayYears UsedDateSmoking Tobacco: Every LltDeexlwfrqa559 Smokeless Tobacco: Never Comments:Trying to cut back- smoking about 1/2 PPD now but it depends; trying to quit so she can have shoulder replacement surgery Alcohol UseStandard Drinks/WeekCommentsNever0 (1 standard drink = 0.6 oz pure alcohol)[facility] UtilitiesAnswerDate RecordedIn the past 12 months has the electric, gas, oil, or water Dr. Z threatened to shut off services in your home?No 06/28/2023Social Connection and Isolation PanelAnswerDate RecordedIn a typical week, how many times do you talk on the phone with family, friends, or neighbors?Three times a week10/10/2024How often do you get together with friends or relatives?Once a week10/10/2024How often do you attend muslim or christian services?More than 4 times per year10/10/2024Do you belong to any clubs or organizations such as muslim groups, unions, fraternal or athletic groups, or school groups?No10/10/2024How often do you attend meetings of the clubs or organizations you belong to?Never10/10/2024re you , , , , never , or living with a partner?Zzceqat1910/10/2024UDIT-C AnswerDate RecordedQ1: How often do you have a drink containing alcohol?Monthly or less11/16/2021Q2: How many drinks containing alcohol do you have on a typical day when you are drinking?1 or Q3: How often do you have six or more drinks on one occasion?Never11/16/2021verall Financial Resource Strain (CARDIA) AnswerDate RecordedHow hard is it for you to pay for the very basics like food, housing, medical care, and heating?Not hard at all07/18/2022HQ-2AnswerDate RecordedTotal Zniio763[place] [employer] - Occupational Stress QuestionnaireAnswerDate RecordedDo you feel stress - tense, restless, nervous, or anxious, or unable to sleep at night because yourmind is troubled all the time - these days?Only a dxwool2807/18/2022Exercise Vital Sign AnswerDate RecordedOn average, how many days per week do you engage in moderate to strenuous exercise (like a brisk walk)?0 days10/10/2024On average, how many minutes do you engage in exercise at this level?0 min10/10/2024PRAPARE - TransportationAnswerDate RecordedIn the past 12 months, has lack of transportation kept you from medical appointments or from getting medications?No 07/18/2022In the past 12 months, has lack of transportation kept you from meetings, work, or from getting things needed for daily living?No07/18/2022 Housing InstabilityAnswerDate RecordedAre you worried or concerned that in the next two months you may not have stable housing that you own, rent or stay in as a part of a household?No07/18/2022hildcareAnswerDate RecordedDo problems getting director child development center make it difficult for you to work or study?No07/18/2022 EmploymentAnswerDate RecordedDo you need help finding a local career center and/or a training program?No07/18/2022Hunger ScreeningAnswerDate RecordedWithin the past 12 months we worried whether our food would run out before we got money to buy more.Never True12/06/2024Within the past 12 months the food we bought just didn't last and we didn't have money to get more.Never True12/06/2024 Purpose - LifeAnswerDate RecordedI have a purpose and direction in my life. Strongly Agree07/18/2022CommentsUnknownSex and Gender InformationValue Date RecordedSex Assigned at BirthNot on fileLegal BnhAjegzi91/06/2015 11:29 AM EDTGender IdentityNot on fileSexual OrientationNot on file Last Filed Vital Signs Vital SignReadingTime TakenCommentsBlood Eiazdorx329/6010 11:12 AM EDT Guzno8990 11:12 AM JQCAorfskjvsya52.8 ??C (98.2 ??F)12/06/2024 11:12 AM EDTRespiratory Wfik9344 11:12 AM EDTOxygen Musenfgueg30%12/06/2024 11:12 AM EDTInhaled Oxygen Concentration--Jepkif51 kg (145 lb 6.4 oz)12/06/2024 11:12 AM XGFYpiyxr012.5 cm (5' 2.01 )12/06/2024 11:12 AM EDTBody Mass Index26.59 12/06/2024 11:12 AM EDT Plan of Treatment DateTypeDepartmentCare Team (Latest Contact Info)Gccmlikzsoq30/03/2026 11:15 AM EDTOffice Visit [facility] [address] [place] [phone] Carson Sullivan, [address], [facility] [address] 10/14/2025 1:00 PM EDTOffice Visit [facility] [address] [place] [address] Health MaintenanceDue DateLast DoneCommentsTobacco Fsuemgizyu52/07/1948Zoster (Shingles) Vaccine (1 of 2)05/10/1966RSV ( or age 60+ yrs) (1 - 1-dose 75+ series)05/10/2022TaP,Tdap and Td Vaccines (2 - Td or Tdap)04/10/2024 04/10/2014Medicare Annual Wellness Visit, 10/10/2023, 08/02/2022epression Dmywgofnv60Fall Risk Svestldsq37/03/2026 12/06/2024Tobacco Ntjzqqugk22Influenza VaccineCompleted 12/06/2024, 12/28/2023, 02/09/2023, Additional history exists Medical Devices Not on file Procedures Procedure NamePriorityDate/TimeAssociated DiagnosisCommentsMULTIPLE LABSRoutine 12/11/2024 10:28 AM EDTfrom Last 3 Months Results * Multiple labs (12/11/2024 10:28 AM EDT) Narrative Authorizing ProviderResult TypeResult StatusNot In System Ref ProvPR IMAGING Final ResultPerforming OrganizationAddressCity/State/ZIP CodePhone Number MANUALLY TRANSCRIBED RESULTS from Last 3 Months Insurance Care Teams Team MemberRelationshipSpecialtyStart DateEnd Date Carson Sullivan DO [address] [place] [address] PCP - GeneralFamily Zkqnfqiq77/12/17
--- OUTSIDE RECORDS SUMMARY | 2025-01-24 12:38 | XMS_ITS | Patient Health Record ---
Author Organization [facility] [place] Address [address] [place] [address] Care Team Providers Care Warehouse Worker 2Nd Shift Name Role Phone Theo Sullivan DOnis Primary Care Provider Unavail able Jon Garcia Unavailable [phone] Allergies Allergen (clinical drug ingredient) Drug/Non Drug Allergy documented on EMR Reaction Allergy Type Onset Date Status duloxetine Cymbalta Kidney Failure Drug Allergy ActivehydrochlorothiazideHydrochlorothiazideItching & RashDrug AllergyActive nickelNickelhivesAllergyActiveSubstance with 7-hwoivbp-7-methylglutaryl-coenzyme A reductase inhibitor mechanism of action (substance)StatinsMyalgiaDrug Allergy Active Results Component Value Reference Range Notes CT Chest w/o contrast Reviewed date:05/22/2024 04:12:46 PM Interpretation: Performing Lab: Notes/Report: CT chest wo con Reviewed date:05/22/2024 05:20:59 PM Interpretation: Performing Lab: Notes/Report: Source Facility: [place] [address] [place] [address] CT Scan Report Signed Patient: DREA COON MR#: [id number] : 1945 Acct:[id number] Age/Sex: 79 / F ADM Date: 05/22/24 Loc: CT Attending Dr: Jon Garcia D.O. Ordering Physician: Jon Garcia D.O. Date of Service: 05/22/24 Procedure(s): CT chest wo con Accession Number(s): [id number] cc: CARSON SULLIVAN [address] [id number] Patient Name: DREA COON MRN: [id number] date: 1945 Sex: F Assigned Patient Location: CT Current Patient Location: CT Accession/Order Number: [id number] Exam Date: 05/22/2024 12:10 Report Date: 05/22/2024 [...] Belle Jr., D.O.05/22/2024 3:56 PM Dictation Location: [place] [address] Electronically authenticated by: [id number] Y Date: 05/22/2024 15:56 Dictated By: Ernie Belle M.D. 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: Reason For Referral No Information Medications Medication SIG (Take, Route, Frequency, Duration) Notes Start Date End Date Status Fexofenadine HCl 60 MG 1 tablet Orally Twice a d ay ActiveSudafed 30 MG2 tablets as needed Orally every 6 hrsActiveLevothyroxine Sodium 112 MCG1 tablet on an empty stomach in the morning Orally Once a day ActiveSuper B Complex -as directed OrallyActiveLidocaine 5 %PLACE 1 patch to the skin EVERY DAY NEEDED, remove and discard patch within 12 hours External; Du ration: 10 DaysActiveVitamin D-3 1000 UNIT2 capsule Orally every 6 hrsActive Lisinopril 40 MG1 tablet Orally Once a dayActiveOmeprazole 20 MG1 capsule Orally BIDActiveamLODIPine Besylate 10 MG1 tablet Orally Once a dayActiveoxyCODONE HCl 5 MGOral; Duration: 30 DaysActiveBayer Aspirin EC Low Dose 81 MG1 tablet Orally Once a day; Duration: 30 day(s)ActiveProbiotic -as directed OrallyActiveCalcium Magnesium Zinc 333-133-5 MG1 tablet with meals Orally Three times a dayActive Sertraline HCl 50 MG1 tablet Orally Once a dayActiveLutein 20 MG1 capsule with a meal Orally Once a dayActiveMetoprolol Succinate ER 25 MG1 tablet Orally Once a dayActiveAcetaminophen ER 650 MG2 tablets as needed Orally every 8 hrsActive [place] 3-6-9 Fatty Acids -as directed OrallyActiveAlendronate Sodium 70 MGOral; Duration: 56 DaysActive Immunizations Vaccine Route Administration Date Status Comme nts Flu, Fluad (82457) 65 yrs an d older, single-dose syringe (4062-5731) Unknown 12/28/2023 Administered Flu, Fluzone (44951) 6 mos+, single-dose syringe/vial (5313-6300)Unknown 11/25/2019AdministeredPneumococcal (Pneumovax 23)Xrthwzi6803/14/2016Administered Pneumococcal (Prevnar 13)Gkkszgi0101/28/2013dministeredTdap (Boostrix)Unknown 04/10/2014dministered Social History Tobacco Use: Social History Observation Description Date Details (start date - stop date) Current Smoker NA - NA Tobacco Control (Standard) Question Answer Notes Tobacco use: Current every day smoker Additional Findings: Tobacco userHeavy cigarette smoker (20-39 cigs/day)Section Notes: : : : : : : : : Problems Problem Type SNOMED Code ICD Code Onset Dates Problem Status W/U Status Risk Notes Problem Chronic pain syndrome (173153579) Chronic pain syndrome (G89.4) ActiveconfirmedProblemCentrilobular emphysema (65982095)Centrilobular emphysema (J43.2)ActiveconfirmedProblemDisplacement of lumbar intervertebral disc without myelopathy (91853311)Other intervertebral disc displacement, lumbar region (M51.26)ActiveconfirmedProblemFibromyalgia (255591679)Fibromyalgia (M79.7)Active confirmedProblemPost-laminectomy syndrome (26081436)Postlaminectomy syndrome, not elsewhere classified (M96.1)ActiveconfirmedProblemMental disorder caused by drug (483258312)Cigarette nicotine dependence with nicotine-induced disorder (F17.219)ActiveconfirmedProblemLumbosacral spondylosis without myelopathy (07617575)Spondylosis of lumbosacral region without myelopathy or radiculopathy (M47.817)ActiveconfirmedProblemMultiple pulmonary nodules (960386144)Multiple pulmonary nodules (R91.8)ActiveconfirmedProblemTobacco user (138982439)Cigarette nicotine dependence, uncomplicated (F17.210)Activeconfirmed Vital Signs Heart Rate 103 /min 05/29/2024 Hhkmkxedqvs48.8 degrees Pyuuozwodm31/26/2025Respiratory Rate18 /min05/29/2024 Ufpfvpma46 %05/29/2024lood pressure xjawtwzhv58 mm Hg05/29/20247670Oythew72 in 05/29/2024lood pressure dlsasyyn899 mm Hg05/29/20240113Clpyay975.6 lbs05/29/2024MI 26.99 kg/m205/29/2024 Encounters Encounter Location Date Provider Diagnosis [facility] [place] [address] [place] [address] 05/29/2024 Jon Garcia Multiple pulmonary nodules R91.8 ; Centrilobular emphysema J43.2 and Cigarette nicotine dependence with nicotine-induced disorder F17.219 [facility] [place] [address] [place] [address] 10/28/2024 Jon Garcia [facility] [address] [place] [address]/02/2025 Jon Garcia Assessments Encounter Date Diagnosis (ICD Code) Assessment Notes Treatment Notes Treatment Clinical Notes Section Notes 05/29/2024 Multiple pulmonary nodules (ICD- 10 - R91.8) Suspicious GGO/scarring in LLL unchanged [...] past - it is possible this could marvin slow growing neoplasm like sclamtmmisuufg-ga-kjbv, with current Fleischner Society Guidelines recommending monitoring out 5 years. 5Centrilobular emphysema (ICD-10 - J43.2) Continues to have a daily productive cough of sputum. Still smoking. Exam with new rhonchi and palpable tactile fremitus, both in the bases. Patient voiced she is still not ready to begin any w/up orstart any maintenance inhaler. She states she will continue with Mucinex daily. 5Cigarette nicotine dependence with nicotine-induced disorder (ICD-10 - [...] Insured Coverage Start Date Coverage End Date [employer] MEDICARE ADV PLAN [address] [address] [place] [address] [id number] Ivelisse Coonelf - patient is the mgacoio27 2017 Medical (General) History Medical History History ICD Code Hyperlipdemia HypothyroidismSpinal StenosisCentrilobular wmxjratslD91.2Multiple pulmonary mydagaeG61.8Cigarette nicotine dependence with nicotine-induced mswhqulsU09.219 Surgical History Surgery Date(Month/Year) Dental upper and lower augmentation 2004 Back Surgery L-3 L-4 L-5 S-1 2017 Laminectomy 1996 cataract surgery-bilateral Bilateral Carpal tunnel yuigotc5245Iotcdsbptreg1857Zisidj Fadwfh3030Cjtqeptvomvs 1990tonsillectomy and adenoidectomy
--- OUTSIDE RECORDS SUMMARY | 2025-01-24 12:38 | XMS_ITS | Patient Health Record ---
Author Organization [facility] Address [address] [place] [address] Care Team Providers Care Elementary School Music Teacher Name Role Phone Carson Sullivan Primary Care Provider UnavailNoah Velazquez Unavailable [phone] Vinicio [place], Diamond [facility] Reason For Referral No Information Social History Tobacco Use: Social History Observation Description Date Details (start date - stop date) Current Smoker NA - NA AUDIT-C (Standard) Question Answer Notes Did you have a drink containing alcohol in the p ast year? Yes How often did you have six or more drinks on one occasion in the past year?Never (0 point)How many drinks did you have on a typical day when you were drinking in the past year?1 or 2 drinks (0 point)How often did you have a drink containing alcohol in the past year?Never (0 point)Nwxodg3UbffqyyaawblziHzwrfiaeNqhtdtx Control (Standard) Question Answer Notes Tobacco use: Current smoker Problems Problem Type SNOMED Code ICD Code Onset Dates Problem Status W/U Status Risk Notes Problem Localized, primary o steoarthritis of the shoulder region () Primary osteoarthritis, left shoulder (M19.012) ActiveconfirmedProblemLocalized, primary osteoarthritis of the shoulder region ()Primary osteoarthritis, right shoulder (M19.011)Activeconfirmed Plan Of Treatment No Information Insurance Providers Payer Name Payer Address Payer Phone Subscriber Number Group Number Insured Name Patient Relationship to Insured Coverage Start Date Coverage End Date Medicare [employer] [address] [address] [place] [id number] [phone] [id number] PATRICIA COONelf - patient is the insured
--- OUTSIDE RECORDS SUMMARY | 2025-01-24 12:38 | XMS_ITS | Clinical Summary ---
Author Organization [facility] Healthcare Address [address] [address] Care Team Providers Care Instructor Industrial [employer] Name Role Phone Unavailable Primary Care Provider Unavailabl e Allergies Active AllergyReactionsCriticalityNoted DateCommentsHydrochlorothiazideItching 02/09/2023 Other Reaction(s): Itching & Rash XfjlfbTmovWqt29/07/2023 Other Reaction(s): hives Eeyvttk4803/10/2023 Other Reaction(s): Myalgia Sulfa AxcvuhecbyhCfrcggcficuoncbqDrtbss89/12/2022 Medications MedicationSigDispense QuantityRefillsLast FilledStart DateEnd DateStatus amLODIPine (Norvasc) 10 MG tablet Take 1 tablet by mouth in the morning.12/21/2022ctive aspirin 81 MG EC tablet 1 tablet Orally Once a day for 30 day(s)Active B Jqsganx-Xvafkl-TX (Super B-Complex) tablet as directed OrallyActive Bioflavonoid Products (Vitamin C) chewable tablet as directed OrallyActive ijvzhxw-pbtqghyim-wavk 333-133-5 MG per tablet every 8 (eight) hoursActive fluticasone (Flonase) 50 MCG/ACT nasal spray Administer 1 spray into affected nostril(s) in the morning.10/19/2022ctive levothyroxine (Synthroid, Levoxyl) 112 MCG tablet Take 1 tablet by mouth in the morning.11/09/2022ctive lisinopril 40 MG tablet Take 40 mg by mouth in the morning.09/29/2022ctive loratadine (Claritin) 10 MG tablet 1 (one) time each day at the same timeActive metoprolol succinate XL (Toprol-XL) 25 MG 24 hr tablet Take 1 tablet by mouth in the morning.08/25/2023Active Multiple Vitamins-Minerals (Womens 50+ Multi Vitamin) tablet Take 1 tablet by mouth in the morning.05/02/2022ctive niacin ER 1000 MG ER tablet 1 tablet with food Orally BIDActive omega-3 (fish oil) 1000 MG capsule 1 capsule 1 (one) time each day at the same timeActive omeprazole (PriLOSEC) [address] capsule Take 1 capsule by mouth in the morning and 1 capsule before bedtime.10/17/2022 Active sertraline (Zoloft) 50 MG tablet Take 1 tablet by mouth in the morning.11/08/2022ctive alpha tocopherol (Vitamin E) 400 units capsule 1 capsule 1 (one) time each day at the same timeActive DULoxetine (Cymbalta) [address] capsule Take 30 mg by mouth in the morning.06/28/2023ctive LORazepam (Ativan) 1 MG tablet Take 1 mg by mouth Daily as qudalk4206/28/2023ctive Active Problems No known active problems Family History Medical HistoryRelationNameCommentsMelanomaNeg Hx Social History Tobacco UseTypesPacks/DayYears UsedDateSmoking Tobacco: Unknown Tobacco Cessation:Counseling Given: Not Answered CommentsUnknownSex and Gender InformationValueDate RecordedSex Assigned at BirthNot on fileLegal JdrGmhlex10/01/2023 8:33 PM EDTGender IdentityNot on fileSexual OrientationNot on file Last Filed Vital Signs Vital SignReadingTime TakenCommentsBlood Wctrorcy683/6603 12:00 PM EST Pulse--Temperature--Respiratory Rate--Oxygen Saturation--Inhaled Oxygen Concentration--Dqlwiu48.9 kg (163 lb)05/10/2018 12:00 PM RUZOouckb921 cm (5' 3 ) 05/10/2018 12:00 PM ESTBody Mass Index28.8705/10/2018 12:00 PM EST Plan of Treatment Not on file Insurance
--- OUTSIDE RECORDS SUMMARY | 2025-01-24 12:39 | XMS_ITS | CCD ---
Author Organization [facility] Care Team Providers Care Beer Merchant Name Role Phone Bri Alonso Unavailable NEAL, DR CARSON Luciano Admitting Unavailable FURLONG, DR CARSON Luciano Attending Unavailable FURLONG, DR CARSON Luciano Consulting Unavailable FURLONG, DR CARSON Luciano Primary Care Unavailable BRI ALONSO Admitting Unavailable JOBY POLO Consulting Unavailable FURLONG, DR CARSON Luciano Primary Care Unavailable BAKLESLIESBRI Attending Unavailable BAKLESLIESBRI Consulting Unavailable JEREMIESBRI Consulting Unavailable MISC, DR BANKS Admitting Unavailable FURLONG, DR CARSON Luciano Primary Care Unavailable MISC, DR BANKS Attending Unavailable SABRINA DOWNS Attending Unavailable SABRINA DOWNS Admitting Unavailable SABRINA DOWNS Consulting Unavailable FURLOPAN, DR CARSON Luciano Primary Care Unavailable SABRINA DOWNS Admitting Unavailable SABRINA DOWNS Attending Unavailable LESLIENG, DR CARSON Luciano Consulting Unavailable FURLONG, DR CARSON Luciano Primary Care Unavailable SABRINA DOWNS Consulting Unavailable KALYANLONG, DR CARSON Luciano Admitting Unavailable FURLONG, DR CARSON Luciano Attending Unavailable FURLONG, DR CARSON Luciano Consulting Unavailable FURLONG, DR CARSON Luciano Primary Care Unavailable Unavailable Primary Care Provider UnavailGOOD Almonte Referring Unavailable CARSON DE JESUS Primary Care Unavailable GOOD DAN Referring Unavailable CARSON DE JESUS Primary Care Unavailable Aden Baca Admitting Unavailable Aden Baca Attending Unavailable Carson De Jesus Primary Care Unavailable YULIA HERNÁNDEZ Attending Unavailable YULIA HERNÁNDEZ Attending Unavailable YULIA HERNÁNDEZ Attending Unavailable YULIA HERNÁNDEZ Attending Unavailable Vinicio CANADA, Diamond Temple Attending Unavailable Vinicio CANADA, Diamond Temple Attending Unavailable Furlong DO, Carson Luciano Primary Care Provider Furlong DOCarson G Primary Care Provider FURLONG, CARSON G [...] FURLONG, CARSON G Primary Care Unavailable FURLONG, CASRON G Referring Unavailable FURLONG, CARSON G Primary Care Unavailable FURLONG, CARSON G Attending Unavailable FURLONG, CARSON G Referring Unavailable FURLONG, CARSON G Primary Care Unavailable Furlong DO, Carson G Primary Care Provider [phone] Allergies Allergy ClassificationReported Allergen(s)Allergy TypeDate of OnsetReaction(s) Facility (20 sources)hydroCHLOROthiazide; Translations: [HYDROCHLOROTHIAZIDE]Drug Allergy 18-06-7222OnqnifuYbyDlgces Repository (1 source)Sulfonamides (Antibiotic)Drug allergy (disorder)[facility] Repository (3 sources)HMG-CoA reductase inhibitorDrug Fdwkzdm10-06-3275QKFE [facility] (3 sources)hydroCHLOROthiazideDrug Sntmwbf93-06-0680SycwnhmKSCR Healthcare (6 sources)nickel sulfate; Translations: [NICKEL]Drug Sbpjaby73-15-0267UggcVAOT Healthcare (20 sources)Sulfonamides (Antibiotic)Drug Uuowthnkeby40-04-1742Pielxnnioxcpzvkb [facility] (20 sources)Hmg-Coa Reductase Inhibitors (Statins); Translations: [SSICLOD-TPM-WSQ REDUCTASE INHIBITORS]Propensity to adverse reactions to drug (disorder)21-86-6589xmvpMajQelxfu Repository (3 sources)Sulfonamides (Antibiotic); Translations: [SULFA (SULFONAMIDE ANTIBIOTICS)]Propensity to adverse reactions to drug (disorder)11-15-2021 [facility] Repository (1 source)hydroCHLOROthiazideDrug Assacwd20-80-6418IxinvacdsGen[facility] Rep[facility] (20 sources)DULoxetine; Translations: [DULOXETINE]Drug Kyerjyp58-54-3777Tvwci (See Comments)[facility] (20 sources)nickelDrug Djdmguh45-43-9790CnorTghSuwslh Health System Medications Current Medications MedicationDrug Class(es)DatesSig (Normalized)Sig (Original)acetaminophen 325 mg / oxyCODONE hydrochloride 5 mg oral tablet (20 sources)Opioid AgonistStart: 07-03-2023 End: 23-30-4201xtwQRZONK-acetaminophen (PERCOCET) 5-325 mg per tablet Indications: Postlaminectomy syndrome, not elsewhere classified Take 1 tablet by mouth every 6 (six) hours as needed for pain for up to 30 days.Max Daily Amount: 4 tablets 120 tablet 09/27/2023 10/27/2023 Activetake 1 tablet by mouth every six hoursoxyCODONE-Acetaminophen 5-325 MG 1 tablet as needed Orally every 6 hrs Activealendronic acid 70 mg oral tablet (16 sources)BisphosphonateStart: 92-59-9497ickl 1 tablet by mouth every week Alendronate (Fosamax) 70 mg tablet Active 70 MG PO every week April 09, 2024 12:00amStart: 02-29-2024 End: 39-08-2681ymxg 1 tablet by mouth in the morningalendronate (FOSAMAX) 70 mg tablet Take 1 tablet (70 mg total) by mouth every 7 days. In a.m. with water on empty stomach, nothing else by mouth and remain upright for 30min 12 tablet 3 12/06/2024 ActiveamLODIPine 10 mg oral tablet (20 sources)Dihydropyridine Calcium Channel BlockerStart: 16-70-2862hvoc 1 tablet by mouth once dailyamLODIPine (NORVASC) 10 mg tablet TAKE 1 TABLET BY MOUTH DAILY 90 tablet 1 12/23/2024 ActiveStart: 12-21-2022 End: 70-80-6489uihj 1 tablet by mouth once dailyamLODIPine (NORVASC) 10 mg tablet TAKE 1 TABLET BY MOUTH DAILY 90 tablet 1 07/01/2024 12/23/2024 Dis continuedascorbic acid 1000 mg extended release oral tablet (20 sources)Vitamin CStart: 27-36-2298wxrg 1 tablet by mouth once dailyAscorbic Acid (Vitamin C) (Vitamin C) 1,000 mg Tablet Extended Release Active 1000 MG PO Daily February 07, 2018 12:00amascorbic acid, vitamin C, (VITAMIN C) 1000 mg tablet ActiveBioflavonoid Products (Vitamin C) chewable tablet as directed Orally 0 ActiveVitamin C - as directed Orally Activeaspirin 81 mg delayed release oral tablet (20 sources)Platelet Aggregation Inhibitor, Nonsteroidal Anti-inflammatory Drug Start: 98-28-3281Fsgauvw (Lorie Low Dose Aspirin) 81 mg Tablet,Delayed Release (Dr/Ec) Active 81 MG PO Daily February 07, 2018 12:00amtake 1 tablet by mouth every twenty-four hoursAspirin 81 MG 1 tablet Orally Once a day for 30 day(s) ActiveB Lgkmnxd-Nsxjjv-KO (Super B-Complex) tablet (3 sources)B Rbcdvfl-Fdndwn-UV (Super B-Complex) tablet as directed Orally 0 Wjmxcb239 actuat budesonide 0.16 mg/actuat / formoterol fumarate 0.0048 mg/actuat / glycopyrrolate 0.009 mg/actuat metered dose inhaler (3 sources)Corticosteroid, beta2-Adrenergic AgonistStart: 24-33-8448graj 2 puff(s) by inhalation at jmmourirswhzlakzy-qnqeshhr-aitbbqfaov (BREZTRI AEROSPHERE) 160-9-4.8 mcg/actuation HFA aerosol inhaler Indications: Chronic obstructive pulmonary disease, unspecified COPD type ([facility]) Inhale 2 puffs in the morning and at bedtime. 10.7 g 2 12/06/2024 ActiveCalcium 600 + D 600-200 MG-UNIT (4 sources)take 1 tablet by mouth once dailyCalcium 600 + D 600-200 MG-UNIT 1 tablet with a meal Orally Once a day for 30 day(s) Activetake 1 tablet by mouth once dailyCalcium 600 + D 600-200 MG-UNIT 1 tablet with a meal Orally Once a day for 30 day(s) Not-Takingcalcium carbonate 1500 mg / cholecalciferol 200 unt oral capsule (2 sources)Vitamin DStart: 66-11-3398ttqn 1 tablet by mouth once dailyCalcium Carbonate-Vitamin D3 (Calcium 600 + D(3)) 600 mg calcium- 200 unit Capsule Active 1 TAB PO Daily February 07, 2018 12:86tffokkfhz-cbykfbjos-bpwt 333-133-5 MG per tablet (3 sources)hbhwsnd-jwezbuswc-dtrv 333-133-5 MG per tablet every 8 (eight) hours 0 ActiveCentrum Silver - (1 source)Centrum Silver - as directed Orally Activecholecalciferol 0.05 mg oral capsule (4 sources)Vitamin DStart: 23-94-6554dynx 1 capsule by mouth once daily Cholecalciferol (Vitamin D3) (Vitamin D3) 2,000 unit Capsule Active 2000 UNIT PO Daily February 07, 2018 12:00amtake 1 capsule by mouth every twenty-four hours Vitamin D3 50 MCG (2000 UT) 1 capsule Orally Once a day Activedocosahexaenoic acid 120 mg / eicosapentaenoic acid 180 mg oral capsule (3 sources)omega-3 (fish oil) 1000 MG capsule 1 capsule 1 (one) time each day at the same time 0 Activefluticasone propionate 0.05 mg/actuat metered dose nasal spray (20 sources)CorticosteroidStart: 10-19-2022 End: 58-89-1913thfq 1 spray(s) nasal route in the morningfluticasone propionate (FLONASE) 50 mcg/actuation nasal spray Administer 1 spray into each nostril in the morning. 9.9 mL 5 12/06/2024 ActiveStart: 86-86-0678dlbx 1 spray(s) nasal route in the morningfluticasone (Flonase) 50 MCG/ACT nasal spray Administer 1 spray into affected nostril(s) in the morning. 0 10/19/2022 Active fsh/flx/prim/cur/bor/om3,6,9 5 (OMEGA 3-6-9 FATTY ACIDS ORAL) (20 sources)fsh/flx/prim/cur/bor/om3,6,9 5 (OMEGA 3-6-9 FATTY ACIDS ORAL) Active fsh/flx/prim/cur/bor/om3,6,9 5 (OMEGA 3-6-9 FATTY ACIDS ORAL) as directed Orally Activefsh/flx/prim/cur/bor/om3,6,9 5 (OMEGA 3-6-9 FATTY ACIDS ORAL) as directed Orally 0 Kjjwvm37 hr guaiFENesin 600 mg extended release oral tablet (4 sources)take 1 tablet by mouth every twelve hours as neededguaiFENesin (MUCINEX) 600 mg tablet extended release 12hr Take 1 tablet (600 mg total) by mouth every 12 (twelve) hours as needed. ActiveIron (1 source)take 1 tablet by mouth once dailyIron 28 MG 1 tablet Orally Once a day for 30 day(s) Activelactobacillus acidophilus [id number] unt oral capsule (20 sources)Lactobacillus acidophilus (PROBIOTIC) 10 billion cell capsule Take 1 capsule by mouth See Admin Instructions. Activelatanoprost 0.05 mg/ml ophthalmic solution (4 sources)Prostaglandin AnalogStart: 99-90-2507mmwk 1 drop(s) into the eye(s) once dailylatanoprost (XALATAN) 0.005 % ophthalmic solution Administer 1 drop to both eyes nightly. 10/01/2024 Activelevothyroxine sodium 0.112 mg oral tablet (20 sources)l-ThyroxineStart: 37-47-3312uilh 1 tablet by mouth in the morning levothyroxine (SYNTHROID, LEVOTHROID) 112 MCG tablet TAKE 1 TABLET BY MOUTH IN THE MORNING 90 tablet 1 12/23/2024 ActiveStart: 02-07-2018 End: 18-34-4137buyv 1 tablet by mouth in the morninglevothyroxine (SYNTHROID, LEVOTHROID) 112 MCG tablet TAKE 1 TABLET BY MOUTH IN THE MORNING 90 tablet 1 07/01/2024 12/23/2024 Discontinuedtake 1 tablet by mouth once daily in the morningLevothyroxine Sodium 112 MCG 1 tablet on an empty stomach in the morning Orally Once a day for 30 day(s) Activelidocaine 0.05 mg/mg medicated patch (13 sources)Antiarrhythmic, Amide Local AnestheticStart: 66-45-2079llqxp 1 dose transdermal route once daily as needed for pain, then apply 1 dose transdermal route every twelve hours as needed for painlidocaine (LIDODERM) 5 % Indications: Post-herpetic polyneuropathy Place 1 patch on the skin daily as needed for pain. Remove & Discard patch within 12 hours or as directed by MD Tao patch 2 03/12/2024 Activelisinopril 40 mg oral tablet (20 sources)Angiotensin Converting Enzyme InhibitorStart: 09-29-2022 End: 21-79-1884bsrs 1 tablet by mouth once dailylisinopriL (PRINIVIL,ZESTRIL) 40 mg tablet TAKE 1 TABLET BY MOUTH DAILY 90 tablet 2 09/27/2024 Activeloratadine 10 mg oral tablet (20 sources)Start: 02-07-2018 End: 00-79-2344xijr 1 tablet by mouth once daily as neededLoratadine 10 mg tablet Active 10 MG PO Daily as needed for Sinus Symptoms February 07, 2018 12:00am End: 40-91-5216jqfx 1 tablet by mouth in the morningloratadine 10 mg capsule Take 1 tablet by mouth in the morning. 03/12/2024 Discontinued (Dose adjustment) LORazepam 1 mg oral tablet (20 sources)BenzodiazepineStart: 06-28-2023 End: 54-37-8142evhr 1 tablet by mouth once daily as needed for anxietyLORazepam (ATIVAN) 1 mg tablet Indications: Anxiety Take 1 tablet (1 mg total) by mouth daily as needed for anxiety. 30 tablet 10/11/2023 ActiveStart: 02-07-2018 End: 90-37-3265qisg 1 tablet by mouth at bedtime as needed for sleepLorazepam 1 mg Tablet Discontinued 1 MG PO Bedtime as needed for Sleep February 07, 2018 12:00am 2023 9:11amlutein 10 mg oral tablet (20 sources)Start: 61-36-2448wbzo 2 tablets by mouth once dailyLutein 10 mg tablet Active 20 MG PO Daily April 09, 2024 11:00am give with meal/snack Start: 10-24-2023 End: 15-18-4721bbds 1 tablet by mouth once dailyLutein 10 mg tablet Discontinued 10 MG PO Daily October 23, 2023 11:00pm April 09, 2024 11:04am give with meal/snackStart: 02-07-2018 End: 64-71-9512mqnl 1 capsule by mouth once dailyLutein 6 mg Capsule Discontinued 6 MG PO Daily February 07, 2018 12:00am October 24, 2023 9:56am24 hr metoprolol succinate 25 mg extended release oral tablet (20 sources)beta-Adrenergic BlockerStart: 05-06-1701htnn 1 tablet by mouth every twenty-four hours in the morningmetoprolol succinate XL (TOPROL XL) 25 mg 24 hr tablet Indications: Essential hypertension TAKE 1 TABLET BY MOUTH IN THE MORNING 180 tablet 1 04/23/2024 ActiveStart: 34-36-8788vfsc 25 mg by mouth once dailyMetoprolol Succinate Active 25 MG PO Daily October 24, 2023 12:00amStart: 10-28-2022 End: 83-12-2303drgl 1 tablet by mouth once daily in the morningmetoprolol succinate XL (TOPROL XL) 25 mg 24 hr tablet Indications: Essential hypertension take 1 tablet by mouth every morning 90 tablet 1 10/07/2023 04/23/2024 DiscontinuedStart: 04-67-4615gifw 1 tablet by mouth every twenty-four hours in the morningmetoprolol succinate XL (Toprol-XL) 25 MG 24 hr tablet Take 1 tablet by mouth in the morning. 0 10/28/2022 ActiveMultiple Vitamins-Minerals (Womens 50+ Multi Vitamin) tablet (3 sources)Start: 71-95-1692eggr 1 tablet by mouth in the morningMultiple Vitamins-Minerals (Womens 50+ Multi Vitamin) tablet Take 1 tablet by mouth in the morning.0 05/02/2022 ActiveMultivitamin (Daily Multi-Vitamin) tablet (1 source)Start: 92-77-6481xibp 1 tablet by mouth once dailyMultivitamin (Daily Multi-Vitamin) tablet Active 1 TAB PO Daily April 09, 2024 12:00am jo-srw-oufmm-calcium carb-K1 400 mcg-500 mg calcium-20 mcg tablet (20 sources)Start: 96-48-2796xhvx 1 tablet by mouth once in the morning wp-tms-vkrly-calcium carb-K1 400 mcg-500 mg calcium-20 mcg tablet Take 1 tablet by mouth in the morning. 90 tablet 05/02/2022 ActiveStart: 09-73-0267msjd 1 tablet by mouth once in the exydmcchj-auk-dyjvr-calcium carb-K1 400 mcg-500 mg calcium-20 mcg tablet Take 1 tablet by mouth in the morning. 90 tablet 0 05/02/2022 Activenaloxone hydrochloride 40 mg/ml nasal spray (16 sources)Opioid Antagonistnaloxone (NARCAN) 4 mg/actuation spray,non-aerosol nasal spray Administer 1 spray (4 mg total) intoeach nostril as needed. 1 spray Q2-3 minutes as needed Activenaloxone (NARCAN) 4 mg/actuation spray,non-aerosol nasal spray (20 sources)naloxone (NARCAN) 4 mg/actuation spray,non-aerosol nasal spray Administer 1 spray (4 mg total) intoeach nostril as needed. 1 spray Q2-3 minutes as needed ActiveOmega 3 1000 MG (4 sources)take 1 capsule by mouth once dailyOmega 3 1000 MG 1 capsule Orally Once a day for 30 day(s) Activeomega-3 acid ethyl esters (residential) 1000 mg oral capsule (2 sources)Start: 40-83-1732cxlb 1 capsule by mouth once dailyOmega-3 Acid Ethyl Esters 1 gram Capsule Active 1000 MG PO Daily February 07, 2018 12:00am omeprazole 20 mg delayed release oral capsule (20 sources)Proton Pump InhibitorStart: 06-06-2024 End: 02-37-9017lvpa 1 capsule by mouth in the morningomeprazole (PriLOSEC) 20 mg capsule Take 1 capsule (20 mg total) by mouth in the morning. 90 capsule 3 12/07/2024 ActiveStart: 02-07-2018 End: 20-13-9247gulcraghxj (PriLOSEC) 20 mg capsule TAKE 1 CAPSULE TWICE DAILY 180 capsule 3 08/21/2023 06/06/2024 Discontinuedtake 1 tablet by mouth every twelve hoursPriLOSEC OTC 20 MG 1 tablet Orally TWICE A DAY for 30 days Active take 1 tablet by mouth twice dailyPriLOSEC OTC 20 MG 1 tablet Orally TWICE A DAY for 30 days Activetake 1 tablet by mouth once dailyPriLOSEC OTC 20 MG 1 tablet Orally Once a day for 30 day(s) ActiveoxyCODONE hydrochloride 5 mg oral tablet (20 sources)Opioid AgonistStart: 68-92-6217xgmWRUCLH (ROXICODONE) 5 mg immediate release tablet 12/26/2023 ActiveStart: 02-15-2018 End: 30-48-5784jjcm 1 tablet by mouth once daily as neededOxycodone (Roxicodone) 5 mg Tablet Discontinued 5 MG PO Q4H as needed for Pain 60 14 February 15, 2018 2023 9:12am Do not exceed 5 tablets/day. Take as directed above Start: 02-07-2018 End: 47-89-7742jrnp 5 tablets by mouth once daily as needed for painOxycodone 15 mg tablet Discontinued 15 MG PO As Directed as needed for pain management February 07, 2018 12:00am February 15, 2018 7:52am May take up to 5 tabs dailytake 0.5 tablet by mouth every six hoursoxyCODONE HCl 30 MG 0.5 tablet as needed Orally every 6 hrs 15 mg Not-Takingpolyethylene glycol 3350 59089 mg powder for oral solution (20 sources)Osmotic LaxativeStart: 02-07-2018 End: 03-91-3629Zmkxvhhvrcxn Glycol 3350 (Miralax) 17 gram powder in packet Active 17 GM PO Daily as needed for constipation April 09, 2024 11:00am Mix with 8 ounces of fluidPolyethylene Glycols (4 sources)Polyethylene Glycol 3350 - 1 packet mixed with 8 ounces of fluid Orally ONCE A DAY NEEDED for 30days ActivePolyethylene Glycol 3350 - 1 packet mixed with 8 ounces of fluid Orally Once a day for 30 day(s) *please review for potential _update for e-prescription and drug interaction check* Active Polyethylene Glycol 3350 - 1 packet mixed with 8 ounces of fluid Orally Once a day for 30 day(s) *please review for potential _update for e-prescription and drug interaction check* Not-TakingpredniSONE 20 mg oral tablet (5 sources)Start: 04-28-2023 End: 46-66-6592yfhk 1 tablet by mouth in the morning, then take 1 tablet by mouth at bedtimepredniSONE (DELTASONE) 20 mg tablet Take 1 tablet (20 mg total) by mouth in the morning and 1 tablet (20 mg total) before bedtime. Do all this for 7 days. 14 tablet 0 04/28/2023 05/05/2023 ActiveStart: 02-15-2018 End: 41-45-8977Jvgmjjnzfl 10 mg tablets,dose pack Discontinued 1 dose pk PO per package directions February 15, 2018 12:00am April 09, 2024 11:01am take 4 tabs for 3 days then take 3 tabs for 3 days then take 2 tabs for 3 days then take 1 tab for 3 daysStart: 31-55-0105Zdfpjfljjk Active 1 dose pk PO per package directions February 15, 2018 1:00am take 4 tabs for3 days then take 3 tabs for 3 days then take 2 tabs for 3 days then take 1 tab for 3 days rosuvastatin calcium 5 mg oral tablet (18 sources)HMG-CoA Reductase InhibitorStart: 12-28-2023 End: 43-50-2581oewv 1 tablet by mouth once dailyrosuvastatin (CRESTOR) 5 mg tablet Take 1 tablet (5 mg total) by mouth nightly. 30 tablet 11 06/07/2024 Activesaccharomyces boulardii 250 mg oral capsule (6 sources)Start: 81-52-4181juxh 1 capsule by mouth once dailySaccharomyces Boulardii 250 mg capsule Active 250 MG PO Daily October 23, 2023 11:00pmtake 1 capsule by mouth every twenty-four hoursProbiotic 250 MG 1 capsule Orally once a day for 30 days Activetake 1 capsule by mouth every twelve hoursProbiotic 250 MG 1 capsule Orally Twice a day for 30 day(s) ActiveSuper B-Complex - (4 sources)Super B-Complex - as directed Orally ActiveSuper B-Complex - as directed Orally Not-TakingtraZODone hydrochloride 100 mg oral tablet (20 sources)Serotonin Reuptake InhibitorStart: 12-28-2023 End: 17-46-0661hlbf 1 tablet by mouth once daily as needed for sleeptraZODone (DESYREL) 100 mg tablet Take 1 tablet (100 mg total) by mouth nightly as needed for sleep. 03/12/2024 Activeubidecarenone 50 mg oral capsule (2 sources)Start: 41-10-1614Mtsqzogv Q10 (Co Q-10) 50 mg Capsule Active 50 MG PO Daily February 07, 2018 12:00amVitamin B Complex (1 source)Start: 03-35-4697bucg 1 tablet by mouth once dailyVitamin B Complex Active 1 TAB PO Daily October 24, 2023 12:00amVitamin B Complex tablet (1 source)Start: 20-24-3425tppt 1 tablet by mouth once dailyVitamin B Complex tablet Active 1 TAB PO Daily October 23, 2023 11:00pmvitamin e 180 mg oral capsule (20 sources)Start: 64-87-6516zszh 1 capsule by mouth once dailyVitamin E 400 unit Capsule Active 400 UNIT PO Daily February 07, 2018 12:00amvitamin E 400 units capsule Activealpha tocopherol (Vitamin E) 400 units capsule 1 capsule 1 (one) time each day at the same time 0 Activetake 1 tablet by mouth once daily vitamin E 400 units capsule 1 tablet Orally Once a day for 30 day(s) 0 Active Completed/Discontinued Medications MedicationDrug Class(es)DatesSig (Normalized)Sig (Original)acetaminophen 325 mg / HYDROcodone bitartrate 7.5 mg oral tablet (20 sources)Opioid AgonistStart: 06-03-2023 End: 65-68-6613ZQACMhjzuhy-acetaminophen (NORCO) 7.5-325 mg per tablet Indications: Lumbosacral spondylosis without myelopathy Take 1 tablet by mouth every 6 (six) hours as needed for pain. Max Daily Amount: 4 tablets 120 tablet 06/03/2023 07/03/2023 Discontinued (Therapy completed)Start: 04-08-2023 End: 54-14-9189LIZUZhhyigm-acetaminophen (NORCO) 7.5-325 mg per tablet Indications: Lumbosacral spondylosis without myelopathy Take 1 tablet by mouth every 6 (six) hours as needed for pain. Max Daily Amount: 4 tablets 120 tablet 0 05/02/2023 ActiveStart: 28-48-3030NMGOTrukeyg-acetaminophen (NORCO) 7.5-325 mg per tablet Indications: Lumbosacral spondylosis without myelopathy Take 1 tablet by mouth every 6 (six) hours as needed for pain. Max Daily Amount: 4 tablets 120 tablet 0 04/08/2023 ActiveStart: 02-08-2023 End: 80-91-6149MWEOBsgezvo-acetaminophen (NORCO) 7.5-325 mg per tablet Indications: Lumbosacral spondylosis without myelopathy Take 1 tablet by mouth every 6 (six) hours as needed for pain. Max Daily Amount: 4 tablets 120 tablet 0 03/03/2023 04/02/2023 Discontinued (Reorder)Vicodin 7.5 mg PRN Active benzonatate 100 mg oral capsule (17 sources)Non-narcotic AntitussiveStart: 02-07-2018 End: 76-73-5364rsbs 1 capsule by mouth three times daily as needed for cough benzonatate (TESSALON PERLES) 100 mg capsule Take 1 capsule (100 mg total) by mouth 3 (three) timesa day as needed for cough. 30 capsule 10/20/2022 06/28/2023 Discontinued (Therapy completed)take 1 capsule by mouth three times daily as neededBenzonatate 200 MG 1 capsule Orally Three times a day as needed for 30 days Not-Takingcephalexin 500 mg oral capsule (2 sources)Cephalosporin AntibacterialStart: 02-15-2018 End: 32-29-5058zbpl 1 capsule by mouth every eight hoursCephalexin (Keflex) 500 mg capsule Discontinued 500 MG PO Q8H February 15, 2018 12:00am 2023 9:10amCo Q-10 50 MG (1 source)take 1 capsule by mouth once dailyCo Q-10 50 MG 1 capsule with a meal Orally Once a day for 30 day(s) Not-Takingcyclobenzaprine hydrochloride 10 mg oral tablet (2 sources)Muscle RelaxantStart: 02-15-2018 End: 73-51-5041gcwv 1 tablet by mouth three times daily as needed for muscle spasmsCyclobenzaprine 10 mg tablet Discontinued 10 MG PO Three times daily as needed for back spasms February 15, 2018 12:00am 2023 9:11am docusate sodium 100 mg oral tablet (6 sources)Start: 02-07-2018 End: 93-48-6605osbm 1 tablet by mouth once daily as needed for constipation Docusate Sodium 100 mg Tablet Discontinued 100 MG PO Daily as needed for Constipation February 12:00am 2023 9:11amDULoxetine 60 mg delayed release oral capsule (19 sources)Serotonin and Norepinephrine Reuptake InhibitorStart: 09-26-2023 End: 92-25-9602fohw 1 capsule by mouth once dailyDuloxetine (Cymbalta) 60 mg capsule,delayed release(DR/EC) Discontinued 60 MG PO Daily October 11:00pm April 09, 2024 10:59amStart: 06-28-2023 End: 01-40-2328njbo 1 capsule by mouth once daily in the morningDULoxetine (CYMBALTA) 30 mg capsule Indications: Fibromyalgia take 1 capsule by mouth every pwvknoo60 capsule 1 09/10/2023 09/26/2023 Discontinuedferrous gluconate 240 mg oral tablet (2 sources)Start: 02-07-2018 End: 23-57-0568hlja 1 tablet by mouth once dailyFerrous Gluconate (Iron High Potency) 240 mg (27 mg iron) Tablet Discontinued 1 TAB PO Daily February 07, 2018 12:00am 2023 9:11amfurosemide 20 mg oral tablet (2 sources)Loop DiureticStart: 02-07-2018 End: 57-38-2849ojjq 1 tablet by mouth once daily as needed for edemaFurosemide 20 mg tablet Discontinued 20 MG PO Daily as needed for Edema February 07, 2018 12:00am 2023 9:11amgabapentin 300 mg oral capsule (5 sources)Anti-epileptic AgentStart: 02-07-2018 End: 59-37-2573obsy 1 capsule by mouth twice dailyGabapentin 300 mg capsule Discontinued 300 MG PO Twice Daily at 0700 and 1400 February 07, 2018 12:00am 2023 9:11amStart: 02-07-2018 End: 92-93-2514qsdw 2 capsules by mouth once daily at bedtimeGabapentin 300 mg capsule Discontinued 600 MG PO Daily at bedtime February 07, 2018 12:00am 2023 9:11amStart: 02-07-2018 End: 37-34-6225pwkj 600 mg by mouth once daily at bedtimeGabapentin Discontinued 600 MG PO Daily at bedtime February 07, 2018 1:00am 2023 10:11am giuseppe root 550 mg oral capsule (3 sources)Start: 02-07-2018 End: 74-99-6535abvm 1 capsule by mouth once dailyGinger (Zingiber Officinalis) 550 mg Capsule Discontinued 550 MG PO Daily February 07, 2018 12:00am 2023 9:11amL.Acidophilus-B.Bifidum,Longum (Probiotic Colon Support) 240 mg (3 billion cell) Capsule (2 sources)Start: 02-07-2018 End: 97-10-8411jibb 1 capsule by mouth once dailyL.Acidophilus-B.Bifidum,Longum (Probiotic Colon Support) 240 mg (3 billion cell) Capsule Discontinued 1 CAP PO Daily February 07, 2018 12:00am 2023 9:11amStart: 02-07-2018 End: 88-82-3177zwed 1 capsule by mouth once dailyL.Acidophilus-B.Bifidum,Longum (Probiotic Colon Support) 240 mg (3 billion cell) Capsule Discontinued 1 CAP PO Daily February 07, 2018 1:00am 2023 10:11ammorphine sulfate 15 mg extended release oral tablet (4 sources)Opioid AgonistStart: 02-15-2018 End: 48-11-2994Jzadoedj (Ms Contin) 15 mg tablet extended release Discontinued 30 MG PO Q12H as needed for pain 4 February 15, 2018 2023 9:12am take w/enough water to swallow whole; do not crush/dissolve/chew/cut/break Start: 02-07-2018 End: 90-53-9683ttfw 1 tablet by mouth three times dailyMorphine 15 mg tablet extended release Discontinued 15 MG PO Three times daily February 07, 2018 12 :00am February 15, 2018 7:52amMS Contin 30 MG (1 source)Start: 68-68-2601dmea 1 tablet by mouth every twelve hoursMS Contin 30 MG 1 tablet Orally every 12 hrs for 7 days *please review for potential _update for e-prescription and drug interaction check* Feb, Not-Taking Ibszylba-Ofz-Gtal-Fa-Vit K-Lut (Centrum Silver Women) 8 mg iron-400 mcg-300 mcg Tablet (2 sources)Start: 02-07-2018 End: 04-72-8603rdzc 1 tablet by mouth once hlujjCogqehjj-Vym-Cpex-Fa-Vit K-Lut (Centrum Silver Women) 8 mg iron-400 mcg-300 mcg Tablet Discontinued1 TAB PO Daily February 07, 2018 12:00am October 24, 2023 9:57amStart: 02-07-2018 End: 49-13-6647qwjm 1 tablet by mouth once aeqyqLpfofqsv-Tpj-Nufw-Fa-Vit K-Lut (Centrum Silver Women) 8 mg iron-400 mcg-300 mcg Tablet Discontinued1 TAB PO Daily February 07, 2018 1:00am October 24, 2023 10:57am24 hr niacin 1000 mg extended release oral tablet (18 sources)Nicotinic AcidStart: 02-07-2018 End: 69-52-5340qppe 1 tablet by mouth once dailyNiacin 1,000 mg tablet extended release 24 hr Discontinued 1000 MG PO Daily February 07, 2018 12:00am October 24, 2023 9:57am End: 67-96-7765gqur 1 tablet by mouth twice daily at mealtimeniacin 1,000 mg tablet extended release 1 tablet with food Orally BID 06/28/2023 Discontinued (Therapy completed)24 hr nicotine 0.875 mg/hr transdermal system (20 sources)Cholinergic Nicotinic AgonistStart: 04-28-2023 End: 29-92-1776mgdgq 1 dose transdermal route once dailynicotine (NICODERM CQ) 21 mg/[address] 1 patch on the skin daily. 30 patch 1 04/28/2023 06/06/2024 Ituvocicbknlmt7-vja-mkh-vaeh-blpa-yyo-zeax (MEGARED ADV TOTAL BODY REFRESH) 110-894-785-30 mg capsule (20 sources) End: 70-87-6163ma23752hx8-hum-ywf-jvts-zano-whm-jawr (MEGARED ADV TOTAL BODY REFRESH) 964-263-201-30 mg capsule Take by mouth. 06/06/2024 Discontinued (Dose adjustment)tj8-nng-tpv-zqmm-gzbj-osr-zeax (MEGARED ADV TOTAL BODY REFRESH) 350-004-066-30 mg capsule Take by mouth. Activepotassium 99 mg extended release oral tablet (1 source)take 1 tablet by mouth once dailyPotassium 99 MG 1 tablet Orally Once a day for 30 day(s) Not-Takingpotassium chloride 10 meq extended release oral tablet (14 sources)Start: 02-07-2018 End: 46-38-6259hher 1 tablet by mouth twice daily as neededPotassium Chloride 10 mEq tablet extended release Discontinued 10 MEQ PO Twice daily as needed for w ith lasix February 07, 2018 12:00am 2023 9:12am End: 22-79-1604ltlsjuqyk chloride (KLOR-CON SPRINKLE) 10 MEQ CR capsule 2 capsules with food Orally Once a day 06/28/2023 Discontinued (Therapy completed) pseudoephedrine hydrochloride 30 mg oral tablet (16 sources)alpha-Adrenergic Agonist End: 62-95-4283yflghtdtnaqqiqr (SUDAFED) 30 mg tablet 12/06/2024 Discontinued (Therapy completed)take 2 tablets by mouth every six hours as needed pseudoephedrine (SUDAFED) 30 mg tablet 2 tablets as needed Orally every 6 hrs ActivePsyllium (1 source)Psyllium 100 % 1 packet with 8 ounces of liquid as needed Orally Three times a day *please review for potential _update for e-prescription and drug interaction check* Not-Takingsertraline 50 mg oral tablet (18 sources)Serotonin Reuptake InhibitorStart: 11-08-2022 End: 68-59-5190rkyi 1 tablet by mouth once daily in the morningsertraline (ZOLOFT) 50 mg tablet take 1 tablet by mouth every morning 90 tablet 1 05/01/2023 06/28/2023 Discontinued (Ineffective)Vitamin B Complex (Super B-50 Complex) Capsule (2 sources)Start: 02-07-2018 End: 53-44-5593ntcn 1 capsule by mouth once dailyVitamin B Complex (Super B-50 Complex) Capsule Discontinued 1 CAP PO Daily February 07, 2018 12:00am 2023 9:12amStart: 02-07-2018 End: 69-74-5858dsat 1 capsule by mouth once dailyVitamin B Complex (Super B-50 Complex) Capsule Discontinued 1 CAP PO Daily February 07, 2018 1:00am 2023 10:12amVitamin D3 2000 UNIT (1 source)take 1 capsule by mouth once dailyVitamin D3 2000 UNIT 1 capsule Orally Once a day for 30 day(s) *please review for potential _updatefor e- prescription and drug interaction check* Not-TakingVitamin E 400 UNIT (1 source)take 1 capsule by mouth once dailyVitamin E 400 UNIT 1 capsule Orally Once a day for 30 day(s) Not-Taking Problems Active Problems Problem ClassificationProblemDateDocumented DateEpisodic/ChronicAnxiety disorders (20 sources)Anxiety; Translations: [Anxiety disorder, unspecified]Onset: 221654-75-3051NythyndOhkqin (20 sources)Reactive airway disease; Translations: [Unspecified asthma, uncomplicated]Onset: 083899-00-2832AdsdugfPpalegne of urinary tract (11 sources)Kidney stone; Translations: [Calculus of kidney]Onset: 05-08-2022 EpisodicCataract (8 sources)Age-related nuclear cataract, right eye; Translations: [Age-related nuclear cataract, left eye]Onset: 34-31-8478GuzurgqYueazzw kidney disease (20 sources)Chronic kidney disease stage 4; Translations: [Chronic kidney disease, stage 4 (severe)]Onset: 06-08-2022 Resolved: 45-51-1314XvrchlxBwcexmx kidney disease (4 sources)Chronic kidney disease; Translations: [Chronic kidney disease, stage 3a]Onset: 78-29-1984Sdvmoco obstructive pulmonary disease and bronchiectasis (2 sources)Chronic obstructive lung disease; Translations: [Chronic obstructive pulmonary disease, unspecified]Onset: 836277-57-3934RbpqmqrDcdymdykjj and other anemia (5 sources)Anemia, unspecified; Translations: [Anemia, unspecified]Episodic Deficiency and other anemia (2 sources)Anemia; Translations: [Anemia, unspecified]24-72-0173Bgdhjerj Disorders of lipid metabolism (20 sources)Hyperlipidemia, unspecified; Translations: [Pure hypercholesterolemia, unspecified]Onset: 06-91-1456WmkuutnIzfvaoiikp disorders (20 sources)Gastro-esophageal reflux disease without esophagitis; Translations: [Gastroesophageal reflux disease]Onset: 373689-16-5841VdtsyemPzzztkyqh hypertension (20 sources)Essential (primary) hypertension; Translations: [Essential hypertension]Onset: 381153-10-5545ZgtnzeuWnwvsagl; including migraine (20 sources)Migraine; Translations: [Migraine, unspecified, not intractable, without status migrainosus]Onset: 146514-64-2836BzxjapjXpqightluxcc with complications and secondary hypertension (20 sources)Hypertensive renal disease; Translations: [Hypertensive chronic kidney disease with stage 1 throughstage 4 chronic kidney disease, or unspecified chronic kidney disease]Onset: 03-31-2022 Resolved: 90-30-0327YlbttbyFpcgsvrziss deficiencies (20 sources)Vitamin D deficiency; Translations: [Vitamin D deficiency, unspecified]Onset: 87-91-8060RhjzjycHuoydhzhgmbdnd (20 sources)Arthritis of shoulder region joint; Translations: [Primary osteoarthritis, right shoulder]Onset: 147482-21-8131VgvgvqoSxucm diseases of kidney and ureters (1 source)Cyst of kidney, acquired; Translations: [CYST OF KIDNEY ACQUIRED] Onset: 63-44-8674FoomohhsXspgk diseases of kidney and ureters (4 sources)Disorder of kidney and ureter, unspecified; Translations: [DISORDER KIDNEY AND URETER UNS]Onset: 63-12-4651WhfligbqUpgar nervous system disorders (4 sources)Chronic pain syndrome; Translations: [Chronic pain syndrome]Chronic Other nutritional; endocrine; and metabolic disorders (1 source)Body mass index 25-29 - overweight; Translations: [Overweight] 34-52-0222LdpqwrzpFfcbj screening for suspected conditions (not mental disorders or infectious disease) (3 sources)Patient encounter status; Translations: [Encounter for screening for malignant neoplasm of colon]62-69-7790BdtllpqvWlzdw skin disorders (2 sources)Actinic keratosis; Translations: [Actinic keratosis]04-07-2023 EpisodicOther upper respiratory disease (20 sources)Allergic rhinitis; Translations: [Allergic rhinitis, unspecified] Onset: 346206-01-7445IiuubohSmbmcpjkwhz; intervertebral disc disorders; other back problems (20 sources)Degeneration of lumbar intervertebral disc; Translations: [Degeneration of lumbar intervertebral disc]Onset: 521619-84-8968Jfoxipm Substance-related disorders (20 sources)Nicotine dependence, cigarettes, uncomplicated; Translations: [Tobacco dependence syndrome]Onset: 051185-20-7604JysbvfbKynshuy disorders (20 sources)Hypothyroidism, unspecified; Translations: [Hypothyroidism]Onset: 096253-27-2319FotnihtStkngbalnbne (1 source)Primary osteoarthritis, left shoulder; Translations: [Primary osteoarthritis, left shoulder]Onset: 55-64-0506Wzloyfvhjlzg (1 source)controlledOnset: 12-28-2023 Past or Other Problems Problem ClassificationProblemDateDocumented DateEpisodic/ChronicAbdominal hernia (20 sources)Hiatal hernia; Translations: [Diaphragmatic hernia without obstruction or gangrene]Onset: 576809-02-1145DelorxbjMskgrhfftuvcc of surgical procedures or medical care (20 sources)Complication of surgical procedure; Translations: [Unspecified complication of procedure, initial encounter]Onset: 659703-18-6258Zuyozhif Diabetes mellitus without complication (20 sources)Hyperglycemia; Translations: [Hyperglycemia, unspecified]Onset: 125017-76-4428KonrtcelFpiru and electrolyte disorders (20 sources)Hyponatremia; Translations: [Hypo-osmolality and hyponatremia]Onset: 501094-74-4837IvfhhnrwWqnwcumnaaznb and screening for infectious disease (3 sources)Needs influenza immunization; Translations: [Encounter for immunization]Onset: 475875-30-5345TkjfwcyiIkst disorders (20 sources)Mood disordersOnset: 12-28-2023 Resolved: Other bone disease and musculoskeletal deformities (20 sources)Osteopenia; Translations: [Other specified disorders of bone density and structure, unspecified site]Onset: 190013-00-7152FsrqwzysIzcap circulatory disease (20 sources)Femoral bruit; Translations: [Other specified symptoms and signs involving the circulatory and respiratory systems]Onset: EpisodicOther connective tissue disease (1 source)Myalgia, unspecified site; Translations: [MYALGIA UNSPECIFIED SITE] Onset: 30-17-5736QsvmmrovNqprb connective tissue disease (20 sources)Acquired trigger finger; Translations: [Trigger finger, unspecified finger]Onset: 719484-92-2079RigrgbkrQbsaf connective tissue disease (20 sources)Fibromyalgia; Translations: [Fibromyalgia]Onset: 11-16-2021 41-64-7353BiyhcyqhUeuny connective tissue disease (1 source)Fibromyalgia; Translations: [Fibromyalgia]Onset: 37-84-1460Fhxntbhk Other non-epithelial cancer of skin (20 sources)Basal cell carcinoma of skin; Translations: [Basal cell carcinoma of skin, unspecified]Onset: 917846-77-7281RjgdmnydHlckw non-traumatic joint disorders (1 source)Bilateral chronic pain of upper limbs; Translations: [Pain in right shoulder]44-92-5372PcyhvljyMhtbb nutritional; endocrine; and metabolic disorders (20 sources)Overweight; Translations: [Overweight]Onset: 06-15-2016 Resolved: 104680-82-0729IcljinmxYuqwqvrnid and visceral atherosclerosis (20 sources)Peripheral vascular disease; Translations: [Peripheral vascular disease, unspecified]Onset: 02-01-2021 Resolved: 637432-77-4719JpwznzzJgwnqvbm codes; unclassified (1 source)Acquired absence of both cervix and uterus; Translations: [ACQUIRED ABSENCE BOTH CERVIX AND UTERUS]Onset: 89-14-7180OlnpdqwlOoaqsxib codes; unclassified (20 sources)Disturbance in sleep behavior; Translations: [Sleep disorder, unspecified]Onset: 040705-14-3508LvbzyackDjgychxh codes; unclassified (1 source)Asymptomatic menopausal state; Translations: [Asymptomatic menopausal state]Onset: 68-02-1483BvrtpualQtfqhwng codes; unclassified (1 source)Sleep disorder, unspecified; Translations: [Sleep disorder, unspecified]Onset: 75-61-8180VxbchraiWmrflmclacj; intervertebral disc disorders; other back problems (20 sources)Cervicalgia; Translations: [Spinal stenosis of lumbar region]Onset: 879302-34-7445ItzycvwcTopnhft on above:Problem List clean-up per request of Phys. 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]Onset: 085665-10-2123Xxzfyfds Results Test NameValueInterpretationReference RangeFacilityCOMPREHENSIVE METABOLIC PANEL on 08-77-0249Aoyplma [Mass/Vol]4.6 g/dLNormal3.2-5.3[facility] Comment on above:Performed By: #### CMP, 31936-5, THYR #### [facility] ([id number]) [address] [place], [place] [address]ISF [Catalytic activity/Vol]78 U/IRgihsb89-737DihJdyzeo [facility] SystemComment on above:Performed By: #### CMP, 15829-1, THYR #### [facility] ([id number]) [address], [address] [place], [place] [address]IXQ [Catalytic activity/Vol]12 U/LNormal0-31[facility] HospitalComment on above:Performed By: #### YOLANDA, 82956-5, THYR #### [facility] ([id number]) [address], [address] [place], [place] [address]Gyzcr gap [Moles/Vol]13 mmol/LNormal5-15[facility] HospitalComment on above:Performed By: #### YOLANDA, 15768-8, THYR #### [facility] ([id number]) [address], [address] [place], [place] [address]DSF [Catalytic activity/Vol]11 U/LNormal0-41[facility] HospitalComment on above:Performed By: #### YOLANDA, 63497-0, THYR #### [facility] ([id number]) [address], [address] [place], [place] [address]Ntckvulwp [Mass/Vol]0.3 mg/dLNormal0.3-1.2[facility] HospitalComment on above:Performed By: #### YOALNDA, 18781-2, THYR #### [facility] ([id number]) [address], [address] [place], [place] [address]Dofuoqf [Mass/Vol]9.6 mg/dLNormal8.5-10.5[facility] HospitalComment on above:Performed By: #### YOLANDA, 11793-2, THYR #### [facility] ([id number]) [address], [address] [place], [place] [address]Dvpurxxa [Moles/Vol]102 mmol/LNrhszs80-037HcvRkkyeg [facility] HospitalComment on above:Performed By: #### YOLANDA, 01018-4, THYR #### [facility] ([id number]) [address], [address] [place], [place] [address]OZ5 [Moles/Vol]20 mmol/EQlp89-21VthXlygyyHolzer Health SystemComment on above:Performed By: #### YOLANDA, 99287-5, THYR #### [facility] ([id number]) [address], [address] [place], [place] [address]Zbzzgkljoo [Mass/Vol]1.38 mg/dLHigh0.40-1.00ProLima City HospitalComment on above:Result Comment: METHOD TRACEABLE TO IDMS STANDARD Performed By: #### YOLANDA, 76478-9, THYR #### [facility] ([id number]) [address], [address] [place], [place] [address]ZNA/1.73 sq M.predicted among non-blacks MDRD (S/P/Bld) [Vol rate/Area]39 mL/min/{1.73_m2}Low>59ProLima City HospitalComment on above: Result Comment: Reported eGFR is based on the CKD-EPI 2020 equation that does not use a race coefficient.Performed By: #### YOLANDA, 15105-3, THYR #### [facility] ([id number]) [address], [address] [place], [place] [address]Dawpbqs [Mass/Vol]93 mg/aHCbbhva18-33TmjKgexwdBellevue Hospital Comment on above:Performed By: #### YOLANDA, 24322-1, THYR #### [facility] ([id number]) [address], [address] [place], [place] [address]Kvdmnzppe [Moles/Vol]4.7 mmol/LNormal3.5-5.0ProLima City HospitalComment on above:Performed By: #### YOLANDA, 85040-0, THYR #### [facility] ([id number]) [address], [address] [place], [place] [address]Ybwaftr [Mass/Vol]7.3 g/dLNormal6.0-8.0[facility] Comment on above:Performed By: #### YOLANDA, 19564-9, THYR #### [facility] ([id number]) [address], [address] [place], [place] [address]Irfure [Moles/Vol]135 mmol/ZRzvdhq976-132WcoFfwvyf [facility] HospitalComment on above:Performed By: #### YOLANDA, 36619-1, THYR #### [facility] ([id number]) [address], [address] [place], [place] [address]Ofpy nitrogen [Mass/Vol]19 mg/dLNormal5-27ProMadison Health HospitalComment on above:Performed By: #### YOLANDA, 44469-9, THYR #### [facility] ([id number]) [address], [address] [place], [place] [address]Eismp 1996 panelon 30-85-2359Dutdgnidadn [Mass/Vol]229 mg/dLHigh 150-200[facility] HospitalComment on above:Performed By: #### YOLANDA, 89715- 1, THYR #### [facility] ([id number]) [address], [address] [place], [place] [address]Tucdsraunqg in HDL [Mass/Vol]89 mg/dLNormal>39ProMadison Health HospitalComment on above:Result Comment: HDL <40 mg/dL - High Risk HDL > or = 40mg/dL- Desirable HDL >60 mg/dL - Negative Risk Performed By: #### YOLANDA, 67790-5, THYR #### [facility] ([id number]) [address], [address] [place], [place] [address]Mbljiuxqfbp in LDL [Mass/Vol]121 mg/dLNormal<130ProMadison Health HospitalComment on above:Result Comment: LDL <100 mg/dL - Desirable LDL >160 mg/dL - High Risk Performed By: #### YOLANDA, 22630-1, THYR #### [facility] ([id number]) [address], [address] [place], [place] [address]Qrtekswdzbz in VLDL [Mass/Vol]19 mg/dLNormal0-30[facility] HospitalComment on above:Performed By: #### YOLANDA, 37462-6, THYR #### [facility] ([id number]) [address], [facility] [address] [place], [place] [address]VUMKACVZQKF:HDL2.7Rozvlo4.0-5.0[facility] HospitalComment on above:Performed By: #### YOLANDA, 74288-5, THYR #### [facility] ([id number]) [address], [address] [place], [place] [address]Obxqavkoppda [Mass/Vol]94 mg/qRXkgmwr39-854UsuUikuhi [facility] HospitalComment on above:Performed By: #### YOLANDA, 31623-7, THYR #### [facility] ([id number]) [address], [address] [place], [place] [address]LKWTKYL PROFILEon 12-42-8084Oqis T4 [Mass/Vol]1.00 ng/dLNormal 0.61-1.60ProGood Samaritan Hospitalca [facility] HospitalComment on above:Performed By: #### YOLANDA, 56423-6, THYR #### [facility] ([id number]) [address], [address] [place], [place] [address]DJG0.75 uIU/mLNormal0.49-4.67[facility] HospitalComment on above:Performed By: #### YOLANDA, 74832-7, THYR #### [facility] ([id number]) [address], [address] [place], [place] [address]Jzaxeiijonr distribution width Auto (RBC) [Ratio]on 04-02-2024 Erythrocyte distribution width (RBC) [Ratio]Erythrocyte distribution width [Ratio] by Automated count11.0-15.0[facility] HospitalEstimated glomerular filtration rate (GFR) non- Americanon 90-15-0373MZY/1.73 sq M.predicted among non-blacks MDRD (S/P/Bld) [Vol rate/Area]Estimated glomerular filtration rate (GFR) non- AmericanLow>=60 mL/min/1.73m 2FWright-Patterson Medical CenterHematocrit Auto (Bld) [Volume fraction]on 04-02-2024 Hematocrit (Bld) [Volume fraction]Hematocrit [Volume Fraction] of Blood by Automated count36.0-48.0[facility] HospitalHemoglobin [Mass/volume] in Bloodon 51-99-5360Ietzjygbwy (Bld) [Mass/Vol]Hemoglobin [Mass/volume] in Blood12.0-16.0[facility] HospitalLaboratory - Chemistry and Chemistry - challengeon 57-49-7388Cezjkds [Mass/Vol]3.8 g/dL 3.4-5.0[facility] HospitalCalcium [Mass/Vol]8.9 mg/dL8.5-10.1 [facility] HospitalChloride [Moles/Vol]101 mmol/A52-759VhpijvpttGenesis HospitalCO2 [Moles/Vol]23.4 mmol/L21.0-32.0[facility] HospitalCreatinine [Mass/Vol]1.31 mg/dLHigh0.55-1.02[facility] HospitalGFR/1.73 sq M.predicted MDRD (S/P/Bld) [Vol rate/Area]48 mL/min/{1.73_m2}Low>=60 mL/min/1.73m 2FWright-Patterson Medical CenterGlucose [Mass/Vol]92 mg/iG80-965LerxituwnGenesis HospitalMagnesium [Mass/Vol]2.1 mg/dL1.8-2.4FWright-Patterson Medical CenterPotassium [Moles/Vol]4.3 mmol/L 3.5-5.1FRegional Medical Centerodium [Moles/Vol]132 mmol/AFdq543-092 [facility] HospitalUrate [Mass/Vol]4.9 mg/dL2.6-6.0[facility] HospitalUrea nitrogen [Mass/Vol]19.0 mg/dLHigh7.0-18.0[facility] HospitalUrea nitrogen/Creatinine [Mass ratio]14.5 mg/mgGenesis HospitalBilirubin Ql (U)NegativeNEGATIVEGenesis HospitalGlucose (U) [Mass/Vol]NegativeNEGATIVEGenesis HospitalKetones Ql (U)NegativeNEGATIVEGenesis HospitalpH (U)6.0 [pH]5.0-9.0Kindred Healthcareodium (U) [Moles/Vol]72 mmol/L30-90 Kindred Healthcarepecific gravity (U) [Rel density]1.015 1.005-1.025Gen[facility] HospitalUrobilinogen Qn (U)0.2 {Drew'U}/dL0.2-1.0[facility] HospitalLaboratory - Specimen informationon 87-61-8410Einduxftuc (U)CLEARCLEARFWright-Patterson Medical CenterColor (U)YELLOWYELLOWGenesis HospitalLaboratory - Urinalysison 24-55-5732Xtjmfzxpy esterase Test strip Ql (U)NegativeNEGATIVE [facility] HospitalNitrite Ql (U)NegativeNEGATIVEGenesis HospitalProtein (U) [Mass/Vol]12.3 mg/dLHigh<=11.9[facility] HospitalProtein Ql (U)NegativeNEG/TRACEGenesis HospitalLeukocytes [#/volume] corrected for nucleated erythrocytes in Blood by Automated counon 53-06-7182YEU corrected for nucl RBC Auto (Bld) [#/Vol] Leukocytes [#/volume] corrected for nucleated erythrocytes in Blood by Automated coun4.0-11.0[facility] Auto (RBC) [Entitic mass]on 25-51-6312PGJ (RBC) [Entitic mass]MCH [Entitic mass] by Automated count26.7-34.0 [facility] HospitalMC Auto (RBC) [Mass/Vol]on 34-86-2803DNWM (RBC) [Mass/Vol]MCHC [Mass/volume] by Automated count29.9-35.2FWright-Patterson Medical CenterMCV Auto (RBC) [Entitic vol]on 89-43-0683GFI (RBC) [Entitic vol] MCV [Entitic volume] by Automated count81.0-99.0[facility] HospitalMicroalbumin [Mass/volume] in Urineon 12-17-4498Frrozoz DL <= 20 mg/L (U) [Mass/Vol]Microalbumin [Mass/volume] in Urine<=30.0[facility] HospitalNo Panel Informationon 683782-Imxufjm Vitamin D Total41.1 ng/mL [facility] HospitalComment on above:<20 ng/mL Vit D hwntyziqe37- <30 ng/mL Vit D pshciqqgvuby46-105 ng/mL Vit D sufficient>100 ng/mL Potential ToxicityParathyroid Hormone (Intact)45 pg/iH35-08WxpupsojuGenesis HospitalComment on above:Performed at: [facility] [address] [id number] Director: Billy Patel PhD, Phone: [phone] Phosphorus Level3.2 mg/dL2.6-4.7FWright-Patterson Medical CenterUrine Occult BloodNegativeNEGATIVEGenesis HospitalUrine Audlgwyzis647 mOsmol/kg.Gen[facility] HospitalComment on above:24 hr : 300 - 900 Random: 50 - 1400 After 12hr fluid restriction: >850Performed at: - [facility] [address] [id number] Director: Rick Law MD, Phone: [phone] Random Ubvogviquy22.79 mg/dL20.00-300.00Gen[facility] HospitalPlatelet mean volume Auto (Bld) [Entitic vol]on 24-40-5212Byhpveyp mean volume (Bld) [Entitic vol]Platelet mean volume [Entitic volume] in Blood by Automated count9.5-13.5FWright-Patterson Medical Center Platelets Auto (Bld) [#/Vol]on 02-08-9491Pkhjyoacq (Bld) [#/Vol]Platelets [#/volume] in Blood by Automated ofjol796-632PaxjczgigGenesis Hospital RBC Auto (Bld) [#/Vol]on 66-45-2683LYT (Bld) [#/Vol]Erythrocytes [#/volume] in Blood by Automated countLow4.20-5.40Kindred Healthcareerum or plasma anion gap determinationon 00-69-0678Owwuq gap [Moles/Vol]Serum or plasma anion gap determinationGenesis HospitalUrine protein/creatinine ratioon 33-38-7692Aixgboi/Creatinine (U) [Ratio]Urine protein/creatinine ratio Genesis HospitalErythrocyte distribution width Auto (RBC) [Ratio]on 60-63-5783Wprcmfilsza distribution width (RBC) [Ratio]13.5 %11.0-15.0 [facility] HospitalEstimated glomerular filtration rate (GFR) non- Americanon 59-42-6260PAC/1.73 sq M.predicted among non-blacks MDRD (S/P/Bld) [Vol rate/Area]43 mL/min/{1.73_m2}Low>=60Gen[facility] HospitalGlobulin Calc (S) [Mass/Vol]on 72-90-7600Dbvdhdjn (S) [Mass/Vol]3.4 g/dL [facility] HospitalHematocrit Auto (Bld) [Volume fraction]on 17-17-8484Cayqcecwkp (Bld) [Volume fraction]38.7 %36.0-48.0[facility] HospitalHemoglobin [Mass/volume] in Bloodon 27-91-8176Ydbmjroxcr (Bld) [Mass/Vol]12.8 g/dL12.0-16.0[facility] HospitalLaboratory - Chemistry and Chemistry - challengeon 91-56-3052Axlmxdy [Mass/Vol]4.0 g/dL 3.4-5.0[facility] HospitalALP [Catalytic activity/Vol]94 U/L46-116 [facility] HospitalALT [Catalytic activity/Vol]23 U/L14-59 [facility] HospitalAST [Catalytic activity/Vol]10 U/ZFev72-20 [facility] HospitalBilirubin [Mass/Vol]0.4 mg/dL0.2-1.0[facility] HospitalCalcium [Mass/Vol]9.3 mg/dL8.5-10.1FWright-Patterson Medical CenterChloride [Moles/Vol]96 mmol/ATwy84-185QzjiagyeqGenesis HospitalCO2 [Moles/Vol]26.8 mmol/L21.0-32.0[facility] Creatinine [Mass/Vol]1.21 mg/dLHigh0.55-1.02[facility] GFR/1.73 sq M.predicted MDRD (S/P/Bld) [Vol rate/Area]52 mL/min/{1.73_m2}Low>=60 [facility] HospitalGlucose [Mass/Vol]109 mg/rEWmwr59-109XvgdcntvtGenesis HospitalMagnesium [Mass/Vol]2.0 mg/dL1.8-2.4FWright-Patterson Medical CenterPotassium [Moles/Vol]3.7 mmol/L3.5-5.1FWright-Patterson Medical CenterProtein [Mass/Vol]7.4 g/dL6.4-8.2FRegional Medical Centerodium [Moles/Vol]130 mmol/CVai863-020YmihpkxmxGenesis HospitalUrea nitrogen [Mass/Vol]20.0 mg/dLHigh7.0-18.0Gen[facility] HospitalUrea nitrogen/Creatinine [Mass ratio]16.5 mg/mgGenesis Hospital Bilirubin Ql (U)NegativeNEGWood County HospitalGlucose (U) [Mass/Vol]NegativeNEGATIVEGenesis HospitalKetones Ql (U)TRACE mg/dLAbnormalNEGATIVEGenesis HospitalpH (U)6.0 [pH]5.0-9.0 Kindred Healthcarepecific gravity (U) [Rel density]1.015 1.005-1.025Genesis HospitalUrobilinogen Qn (U)0.2 {Drew'U}/dL0.2-1.0[facility] HospitalLaboratory - Specimen informationon 85-00-6895Dzdpcraqjh (U)SL CLOUDYCLEARFWright-Patterson Medical CenterColor (U)YELLOWYELLOWGenesis HospitalLaboratory - Urinalysison 39-17-5642Pbfdkcdqz esterase Test strip Ql (U)NegativeNEGATIVE Genesis HospitalNitrite Ql (U)NegativeNEGATIVEGenesis HospitalProtein (U) [Mass/Vol]23.3 mg/dLHigh<=11.9Gen[facility] HospitalProtein Ql (U)NegativeNEG/TRACEGenesis HospitalLeukocytes [#/volume] corrected for nucleated erythrocytes in Blood by Automated counon 93-30-6902XWS corrected for nucl RBC Auto (Bld) [#/Vol]6.7 10 3/uL4.0-11.0[facility] HospitalH Auto (RBC) [Entitic mass]on 05-21-6546ZDC (RBC) [Entitic mass]32.7 pg26.7-34.0Gen[facility] HospitalMCHC Auto (RBC) [Mass/Vol]on 80-01-4386AXKX (RBC) [Mass/Vol]33.1 g/dL 29.9-35.2FWright-Patterson Medical CenterMCV Auto (RBC) [Entitic vol]on 82-35-0165SZK (RBC) [Entitic vol]98.7 fL81.0-99.0Gen[facility] HospitalNo Panel Informationon 34-58-629713335285-Knfjwef Vitamin D Total47.1 ng/mL Genesis HospitalComment on above:<20 ng/mL Vit D bdqaayauv51- <30 ng/mL Vit D isjwchigpiea95-660 ng/mL Vit D sufficient>100 ng/mL Potential ToxicityParathyroid Hormone (Intact)24 pg/jE76-28DykxwvrznGenesis HospitalComment on above:Performed at: [facility] [address] [id number] Director: Billy Patel PhD, Phone: [phone] Occult BloodNegativeNEGATIVEGenesis HospitalUrine Random Uicgrxgxxe061.48 mg/dL20.00-300.00Genesis HospitalPlatelet mean volume Auto (Bld) [Entitic vol]on 18-88-5980Vhlmgqop mean volume (Bld) [Entitic vol]9.2 fLLow9.5-13.5FWright-Patterson Medical CenterPlatelets Auto (Bld) [#/Vol]on 55-48-9514Jbvlwsnuz (Bld) [#/Vol]364 10 3/tX831-703AvypzwzvcGenesis HospitalRBC Auto (Bld) [#/Vol]on 57-98-6668SNM (Bld) [#/Vol]3.92 10 6/uL Low4.20-5.40Kindred Healthcareerum or plasma albumin/globulin mass ratioon 45-11-0993Woxzgmq/Globulin [Mass ratio]1.2 {ratio}Kindred Healthcareerum or plasma anion gap determinationon 32-66-3965Kbfxp gap [Moles/Vol]10.9 mmol/LFWright-Patterson Medical CenterUrine protein/creatinine ratioon 98-32-5570Bwwajpr/Creatinine (U) [Ratio]0.20Genesis HospitalBASIC METABOLIC PANLon 09-37-2021Lnwje gap [Moles/Vol]13 mmol/LNormal5-15ProMedica Lenexa HospitalComment on above:Performed By: #### BMP, THYR #### [facility] ([id number]) [address], [address] [place], [place] [address]Yjkzfow [Mass/Vol]9.9 mg/dLNormal8.5-10.5PHolzer Health SystemComment on above:Performed By: #### BMP, THYR #### [facility] ([id number]) [address], [address] [place], [place] [address]Hnkvvhjo [Moles/Vol]100 mmol/AIbswgm70-112JgaCbutib Toledo HospitalComment on above:Performed By: #### BMP, THYR #### [facility] ([id number]) [address], [address] [place], [place] [address]KC6 [Moles/Vol]23 mmol/RDqhxnf70-60FyoExubbg [facility] Comment on above:Performed By: #### BMP, THYR #### [facility] ([id number]) [address], [address] [place], [place] [address]Dhcmtthqhj [Mass/Vol]1.20 mg/dLHigh0.40-1.00ProMedica Robledo HospitalComment on above:Result Comment: METHOD TRACEABLE TO IDMS STANDARD Performed By: #### SANDRA, THYR #### [facility] ([id number]) [address] [address] [place], [place] [address]SFF/1.73 sq M.predicted among non-blacks MDRD (S/P/Bld) [Vol rate/Area]47 mL/min/{1.73_m2}Low>59ProMedica Robledo HospitalComment on above: Result Comment: Reported eGFR is based on the CKD-EPI 2020 equation that does not use a race coefficient.Performed By: #### SANDRA, THYR #### [facility] ([id number]) [address] [address]Nuzshho [Mass/Vol]86 mg/cIRmbcto70-57TaaAgnfzu [facility] Comment on above:Performed By: #### SANDRA, THYR #### [facility] ([id number]) [address] [address]Qtdevzpvk [Moles/Vol]4.3 mmol/LNormal3.5-5.0ProMedica Robledo HospitalComment on above:Performed By: #### SANDRA, THYR #### [facility] ([id number]) [address] [address] [place], [place] [address]Zyfitd [Moles/Vol]136 mmol/RAnqvqk203-559RtmBjpxsr [facility]o HospitalComment on above:Performed By: #### SANDRA, THYR #### [facility] ([id number]) [address] [address] [place], [place] [address]Kaki nitrogen [Mass/Vol]26 mg/dLNormal5-27ProMedica Robledo HospitalComment on above:Performed By: #### SANDRA, THYR #### [facility] ([id number]) [address], [address] [place], [place] [address]Wwtrb Metabolic Panelon 05-88-5261Gzqck gap [Moles/Vol]13 mmol/L 5 - 15 mmol/[facility] SystemCalcium [Mass/Vol]9.9 mg/dL8.5 - 10.5 mg/dL [facility]icLife[facility] SystemChloride [Moles/Vol]100 mmol/L98 - 109 mmol/[facility] SystemCO2 [Moles/Vol]23 mmol/L22 - 32 mmol/[facility] System Creatinine [Mass/Vol]1.20 mg/dLHigh0.40 - 1.00 mg/dLMiami Valley Hospital Comment on above:METHOD TRACEABLE TO [facility] STANDARDeGFR (CKD-EPI)non-race fhrtratsm63Uw[address] [place], [place] [address]Comment on above: Reported eGFR is based on the CKD-EPI 2020 equation that does not use a race coefficient. Glucose [Mass/Vol]86 mg/dL65 - 99 mg/dLMiami Valley HospitalInterpretation and review of laboratory resultsAbnormalMiami Valley HospitalPotassium [Moles/Vol]4.3 mmol/L3.5 - 5.0 mmol/[facility] SystemSodium [Moles/Vol] 136 mmol/L134 - 146 mmol/[facility] SystemUrea nitrogen [Mass/Vol]26 mg/dL5 - 27 mg/dLGeisinger Medical CenterTHYROID PROFILEon 56-17-6567Telu T4 [Mass/Vol]1.14 ng/dLNormal0.61-1.60[facility] Comment on above:Performed By: #### SANDRA, THYR #### [facility] ([id number]) [address] [place], [place] [address]OQU0.81 uIU/mLNormal0.49-4.67[facility] HospitalComment on above:Performed By: #### SANDRA, THYR #### [facility] ([id number]) [address], [address] [place], [place] [address]Pilndpw profile includes TSH FT4on 55-21-0731Bxya T4 [Mass/Vol] 1.14 ng/dL0.61 - 1.60 ng/dLProCooper Green Mercy Hospital Health SystemTS Qn0.81 m[IU]/LProMedica Health SystemProMedica Health SystemXR shoulder LT min 2V*on 14-33-8213BP shoulder LT min 2V*[facility] Main [place] [address] [place] [address] XRay Report Signed Patient: Drea Tellez MR#: Aj [id number] : 1945 Acct:[id number] Age/Sex: 78 / F ADM Date: 05/11/23 Loc: [facility] Room: Type: [facility] Attending Dr: Aden Baca DO Copies to: [...] Justin Lucas M.D.05/11/2023 2:24 PM Dictation Location: [place] [address] Transcribed By: [facility] 05/11/23 1424 Dictated By: Justin Lucas DO 05/11/23 1422 Signed By: 05/11/23 1424NoAdena Health SystemNo Panel Informationon 69-99-6953QPDV HealthcareDrug Screen, Urineon 40-85-1713Dwxwfwdkkgoq Screen method >1000 ng/mL Ql (U)NegativeNegative^NegativeProMedine Health SystemComment on above:AMPH/METH screening cut off = 1000 ng/mLBarbiturates Screen Ql (U) NegativeNegative^NegativeProMedine Health SystemComment on above:Barbiturates screening cut off value = 200 ng/mLBenzodiazepines Ql (U)Negative Negative^NegativeOhioHealth Arthur G.H. Bing, MD, Cancer Centerca Health SystemComment on above:Benzodiazepines screening cut off value = 200 ng/mLCocaine Ql (U)NegativeNegative^Negative [facility] Hospitaled[facility] SystemComment on above:Cocaine screening cut off value = 300 ng/mLInterpretation and review of laboratory resultsAbnormalMetroHealth Parma Medical Center SystemMethadone Screen Ql (U)NegativeNegative^NegativeMetroHealth Parma Medical Center System Comment on above:Methadone screening cut off value = 300 ng/mL. Methylenedioxymethamphetamine Screen Ql (U)NegativeNegative^NegativeMetroHealth Parma Medical Center SystemComment on above:Ecstasy screening cut off value = 500 ng/mL This report is intended for use in clinical monitoring or management of patients. Opiates Screen Ql (U)PositiveAbnormalNegative^NegativeMetroHealth Parma Medical Center System Comment on above:Confirmation available upon request. Opiates screening cut off value = 300 ng/mL NOTE: This test is used for the detection of codeine, hydrocodone (>1000 ng/mL), morphine and hydromorphone (>900 ng/mL) in urine. oxyCODONE Ql (U)NegativeNegative^NegativeMetroHealth Parma Medical Center SystemComment on above:Oxycodone screening cut off value = 300 ng/mL NOTE: This test is used for the detection of oxycodone and oxymorphone in urine. Phencyclidine Screen method >25 ng/mL Ql (U)NegativeNegative^NegativeMetroHealth Parma Medical Center SystemComment on above:Phencyclidine screening cut off value = 25 ng/mL Tetrahydrocannabinol Screen method >50 ng/mL Ql (U)NegativeNegative^Negative [facility] SystemComment on above:Cannabinoids/THC screening cut off value = 50 ng/mLMiami Valley HospitalPTH INTACTon 44-40-7360LIE, Ezxyns15 pg/mL Critically hew38-52Zji [facility] HospitalComment on above:Performed By: #### PTHINT ####[facility] [address] [place], [place] [address]Ij. Ashok ChangHEMOGRAM AND PLATELon 83-03-2435Njwgixecdv (Bld) [Volume fraction]32.0 %Critically low36.0-48.0The [facility] HospitalComment on above: Performed By: #### HH ####[facility] [address] [place], [place] [address]Dr. Ashok BaileyHemoglobin (Bld) [Mass/Vol]10.6 g/dL Critically low12.0-16.0The [facility] HospitalComment on above:Performed By: #### HH ####[facility] [address]qx[address] [place], [place] [address]Dr. Ashok BaileyH (RBC) [Entitic mass]31.4 ahGxbdje28.7-34.0The [facility] Comment on above:Performed By: #### HH ####[facility] Rbkfeck[address] [place], [place] [address]Dr. Neelamandrew BaileyHC (RBC) [Mass/Vol]33.1 g/dL Vqyotz38.9-35.2The [facility] HospitalComment on above:Performed By: #### HH ####[facility] X[address]terx[address] [place], [place] [address]Dr. Donavan alethea BaileyV (RBC) [Entitic vol]94.7 tAArkjsx67.0-99.0The [facility] Comment on above:Performed By: #### HH ####[facility] [address]ort[address] [place], [place] [address]Dr. Ashok KpxxlPWV145 103/cfUfcvqg584-093Akb [facility] HospitalComment on above:Performed By: #### HH ####[facility] [address]cfyj[address] [place], [place] [address]Dr. Ashok BaileyRBC3.38 106/ul Critically low4.20-5.40The [facility] HospitalComment on above:Performed By: #### HH ####[facility] [address] [place], [place] [address]Dr. Ashok ChangWBC8.4 103/ulNormal4.0-11.0The [facility] HospitalComment on above: Performed By: #### HH ####[facility] Uwe[address]ry[address] [place], [place] [address]Dr. Yilan ChangMAGNESIUMon 94-03-2073Itwbxunbz [Mass/Vol]1.8 mg/dLNormal1.8-2.4The [facility] HospitalComment on above:Performed By: #### CMP, URIC, MG, PHOS ####[facility] [address] [place] [address]Dr. Ashok ChangPHOSPHORUSon 81-11-7943Eigrakxjj [Mass/Vol]4.0 mg/dLNormal2.6-4.7The [facility] HospitalComment on above:Performed By: #### CMP, URIC, MG, PHOS ####[facility] [address] [place] [address]Dr. Ashok ChangPROF 14(COMP METB)on 86-06-4211Huxyyns [Mass/Vol]3.8 g/dLNormal3.4-5.0The [facility] HospitalComment on above:Performed By: #### CMP, URIC, MG, PHOS ####[facility] Ej[address] [place], [place] [address]Dr. Neelamandrew ChangAlbumin/Globulin [Mass ratio]1.1 {ratio}NormalThe [facility] HospitalComment on above:Performed By: #### CMP, URIC, MG, PHOS ####[facility] [address] [place] [address]Dr. Neelamlan ChangALP [Catalytic activity/Vol]96 U/XPwlxvk12-930Hux [facility] HospitalComuniversity of michigan health on above:Performed By: #### CMP, URIC, MG, PHOS ####[facility] [address] [place] [address]Dr. Yilan ChangALT [Catalytic activity/Vol]17 U/LFrkkov03-82Czi [facility] HospitalComment on above: Performed By: #### CMP, URIC, MG, PHOS ####[facility] [address] [place] [address]Dr. Neelamlan ChangAnion gap [Moles/Vol]15.4 mmol/L NormalThe [facility] HospitalComment on above:Performed By: #### CMP, URIC, MG, PHOS ####[facility] [address] [place] [address]Dr. Yilan ChangAST [Catalytic activity/Vol]15 U/VVkqets17-80Nic [facility] Orrville Hospitalment on above:Performed By: #### CMP, URIC, MG, PHOS ####[facility] [address] [place] [address]Dr. Yilan Bailey Bilirubin [Mass/Vol]0.3 mg/dLNormal0.2-1.0The [facility] HospitalComment on above: Performed By: #### CMP, URIC, MG, PHOS ####[facility] [address] [place], [place] [address]Dr. Yilan ChangCalcium [Mass/Vol]9.1 mg/dLNormal 8.5-10.1The [facility] on above:Performed By: #### CMP, URIC, MG, PHOS ####[facility] [address] [place] [address]Dr. Yilan ChangChloride [Moles/Vol]103 mmol/HXbqzwo74-147Sof [facility] HospitalComment on above:Performed By: #### CMP, URIC, MG, PHOS ####[facility] E[address] [place], [place] [address]Dr. Yilan ChangCO2 [Moles/Vol]24.9 mmol/JYodqax42.0-32.0The [facility] on above: Performed By: #### CMP, URIC, MG, PHOS ####[facility] [address] [place], [place] [address]Dr. Yilan ChangCreatinine [Mass/Vol]1.35 mg/dL Critically high0.55-1.02The [facility] on above:Performed By: #### CMP, URIC, MG, PHOS ####[facility] N[address] [place], [place] [address]Dr. Yilan ChangEGFR-AF OHBUNOVD89 mL/min/1.73m2 Critically low>=60The [facility] Hospitalment on above:Performed By: #### CMP, URIC, MG, PHOS ####[facility] [address] [place] [address]Dr. Yilan ChangEGFR-NON AF UGRBHCXF27 mL/min/1.01e9Raskptexul low>=60 The [facility] HospitalComment on above:Performed By: #### CMP, URIC, MG, PHOS ####[facility] [address] [place] [address]Dr. Yilan ChangGlobulin (S) [Mass/Vol]3.4 g/dLNormalThe [facility] HospitalComment on above:Performed By: #### CMP, URIC, MG, PHOS ####[facility] [address] [place] [address]Dr. Yilan ChangGlucose [Mass/Vol]86 mg/xOZotqug67-553Ppk [facility] HospitalComment on above:Performed By: #### CMP, URIC, MG, PHOS ####[facility] [address]ws[address] [place] [address]Dr. Yilan ChangPotassium [Moles/Vol]4.3 mmol/LNormal 3.5-5.1The [facility] HospitalComment on above:Performed By: #### CMP, URIC, MG, PHOS ####[facility] [address]mnf[address] [place], [place] [address]Dr. Yilan ChangProtein [Mass/Vol]7.2 g/dLNormal6.4-8.2The [facility] Comment on above:Performed By: #### CMP, URIC, MG, PHOS ####[facility] Qeylmkz[address] [place], [place] [address]Dr. Yilan ChangSodium [Moles/Vol]139 mmol/KJnetij181-693Spz [facility] HospitalComment on above: Performed By: #### CMP, URIC, MG, PHOS ####[facility] [address]fa[address] [place], [place] [address]Dr. Yilan ChangUrea nitrogen [Mass/Vol]20.0 mg/dLCritically high7.0-18.0The [facility] HospitalComment on above:Performed By: #### CMP, URIC, MG, PHOS ####[facility] [address] [place] [address]Dr. Ashok BaileyUrea nitrogen/Creatinine [Mass ratio] 14.8 mg/mgNoalThParkview Health Bryan HospitalComment on above:Performed By: #### CMP, URIC, MG, PHOS ####[facility] [address] [place] [address]Dr. Ashok Orantes RANDOMon 07-64-8648Seidzyuse Ql (U)NegativeNormal NEGATIVECenterville HospitalComment on above:Performed By: #### UA #### [facility] [address] [place] [address] [address] Ashok BaileyClarity (U)CLEARNormalCLEARHolzer Medical Center – JacksonComment on above: Performed By: #### UA #### [facility] [address] [place] [address] Dr. Ashok Rodriguez (U)LT. YELLOWNormalYELLOWHolzer Medical Center – JacksonComment on above:Performed By: #### UA #### [facility] [address] [place] [address] [address] Ashok BaileyGlucose Ql (U)NegativeNormalNEGATIVEHolzer Medical Center – JacksonComment on above:Performed By: #### UA #### [facility] [address] [place] [address] [address] Ashok BaileyHemoglobin Ql (U)NegativeNormalNEGATIVEPromedica Memorial Hospital on above:Performed By: #### UA #### [facility] [address] [place] [address] [address] Ashok BaileyKetones Ql (U)NegativeNormalNEGATIVEHolzer Medical Center – JacksonComment on above:Performed By: #### UA #### [facility] [address] [place] [address] [address] Ashok BaileyLEUKOCYTESNegativeNormalNEGATIVEHolzer Medical Center – JacksonComuniversity of michigan health on above:Performed By: #### UA #### [facility] [address] [place] [address] Dr. Ashok BaileyNitrite Ql (U)NegativeNormalNEGATIVEHolzer Medical Center – JacksonComment on above:Performed By: #### UA #### [facility] [address] [place] [address] [address] Ashok BaileypH (U)6.0 [pH]Normal5-9The [facility] Hospitalment on above: Performed By: #### UA #### [facility] [address] [place] [address] [address] Ashok BaileySPEC GRAVITY1.848Tbrauo7.005-<=1.025The [facility] HospitalComment on above:Performed By: #### UA #### [facility] [address] [place] [address] Dr. Ashok Orantes PROTEINNegativeNormalNEGATIVE/ TRACEThe [facility] Comment on above:Performed By: #### UA #### [facility] [address] [place] [address] Dr. Ashok Lucasbilinogen Qn (U)0.2 {Drew'U}/dLNormal0.2 - 1.0The [facility] HospitalComment on above:Performed By: #### UA #### [facility] [address] [place] [address] Dr. Ashok Moctezuma ACID SERUMon 23-64-8572Tgaaa [Mass/Vol]3.9 mg/dLNormal 2.6-6.0The [facility] HospitalComment on above:Performed By: #### CMP, URIC, MG, PHOS ####[facility] [address] [place] [address]Dr. Ashok Meier T PROTEIN CREAT RATIOon 48-25-0891Lpcykcr (U) [Mass/Vol]14.0 mg/dLCritically high<=12.0The [facility] HospitalComment on above: Performed By: #### URTPCR #### [facility] [address] [place] [address] Dr. Ashok Apple PROT CREAT RAT0.28NormalThe [facility] HospitalComment on above: Performed By: #### URTPCR #### [facility] [address] [place] [address] Dr. Ashok Meier CREAT50.47 mg/iNGsdrjt31.00-300.00[facility] Comment on above:Performed By: #### URTPCR #### [facility] [address] [place] [address] Dr. Ashok BaileyVITAMIN D 25 OHon 43-35-4217IIC D 25-OH19.2 ng/mLNormalHolzer Medical Center – JacksonComment on above:Performed By: #### FT4 #### [facility] [address] [place] [address] Dr. Ashok MurphyT D RANGESSEE BELOWCleveland Clinic Children's Hospital for RehabilitationComment on above: Result Comment: <20 ng/mL Vit D deficient 20 - <30 ng/mL Vit D insufficient 30 - 100 ng/mL Vit D sufficient >100 ng/mL Potential ToxicityPerformed By: #### FT4 #### [facility] [address] [place] [address] Dr. Ashok Traore KIDNEYSon 60-75-7007SC KIDNEYSUS KIDNEYS EXAM DATE: 05/03/2022 7:10 AM MST COMPARISON: None available. INDICATION: Stage IV chronic kidney disease. TECHNIQUE: Real-time ultrasound scanning of the kidneys and bladder was performed by the cash register mechanic. Infant Toddler Lead Teacher static images are submitted for review. FINDINGS: [...] Recommend correlation with urinalysis. Electronically authenticated by: JOBYJULY POLO Date: 2022-05-03 12:33NormUniversity Hospitals Lake West Medical CenterFREE T4on 48-71-8523Gsfa T4 [Mass/Vol]1.26 ng/dLNormal0.76-1.46 The [facility] HospitalComment on above:Performed By: #### FT4 #### [facility] [address] [place] [address] [address] Ashok BaileyPROF CHEM 8 (BAS METB)on 77-01-5341Somkh gap [Moles/Vol]17.6 mmol/LNormalThe [facility] HospitalComment on above:Performed By: #### BMP, TSH ####[facility] [address] [place] [address]Dr. Ashok ChangCalcium [Mass/Vol]8.9 mg/dLNormal8.5-10.1The [facility] HospitalComment on above:Performed By: #### BMP, TSH ####[facility] [address] [place] [address]Dr. Yilan ChangChloride [Moles/Vol]97 mmol/L Critically dov71-811Riz [facility] Hospitalment on above:Performed By: #### BMP, TSH ####[facility] [address] [place] [address]Dr. Ashok ChangCO2 [Moles/Vol]22.2 mmol/HVbizpg75.0-32.0The [facility] Hospitalment on above:Performed By: #### BMP, TSH ####[facility] [address] [place] [address]Dr. Neelamlan ChangCreatinine [Mass/Vol]2.42 mg/dLCritically high0.55-1.02The [facility] Hospitalment on above:Performed By: #### BMP, TSH ####[facility] [address] [place] [address]Dr. Yilan ChangEGFR-AF PQPSKJFQ40 mL/min/1.73m2 Critically low>=60The [facility] HospitalComment on above:Performed By: #### BMP, TSH ####[facility] [address] [place] [address]Dr. Yilan ChangEGFR-NON AF EXZGUCPF70 mL/min/1.27w6Fccywfutrg low>=60The [facility] HospitalComment on above:Performed By: #### BMP, TSH ####[facility] [address] [place] [address]Dr. Yilan ChangGlucose [Mass/Vol]84 mg/pRHrhxns54-026Hdv [facility] HospitalComment on above:Performed By: #### BMP, TSH ####[facility] [address] [place], [place] [address]Dr. Yilan ChangPotassium [Moles/Vol]4.8 mmol/LNormal3.5-5.1The Emmitsburg HospitalComment on above:Performed By: #### BMP, TSH ####[facility] Orscnwt[address] [place], [place] [address]Dr. Yilan Bailey Sodium [Moles/Vol]132 mmol/LCritically jcl973-374Fap [facility] HospitalComment on above:Performed By: #### BMP, TSH ####[facility] Qrumgdnbbx[address] [place], [place] [address]Dr. Yilan ChangUrea nitrogen [Mass/Vol]43.0 mg/dL Critically high7.0-18.0The Emmitsburg HospitalComment on above:Performed By: #### BMP, TSH ####[facility] Ystgsp[address] [place], [place] [address]Dr. Yilan ChangUrea nitrogen/Creatinine [Mass ratio]17.8 mg/mgNormalThe [facility] HospitalComment on above:Performed By: #### BMP, TSH ####[facility] Usrrxodyal[address] [place], [place] [address]Dr. Yilan ChangTSHon 96-34-5093QJP1.368 uIU/mLNormal0.358-3.740The [facility] HospitalComment on above: Performed By: #### BMP, TSH ####[facility] Jcoziyfl[address] [place], [place] [address]Dr. Yilan ChangCPKon [id number] [Catalytic activity/Vol]207 U/LCritically otyn62-989SpyCommunity [facility] Center on above: Performed By: #### CMP, CK, TSH, LIPID #### [facility] [address] [place] [address] Dr. Ashok Leroy T4on 96-43-2424Bina T4 [Mass/Vol]1.16 ng/dLNormal0.76-1.46 The [facility] HospitalComun[facility] on above:Performed By: #### FT4 #### [facility] [address] [place] [address] Dr. Ashok LaID PROFILEon [id number]-HDL RATIO NORMSEE BELOWCleveland Clinic Children's Hospital for RehabilitationComment on above:Result Comment: 3.3 - 4.4 LOW RISK 4.4 - 7.1 AVERAGE RISK 7.1 - 11.0 MODERATE RISK >11.0 HIGH RISKPerformed By: #### CMP, CK, TSH, LIPID #### [facility] [address] [place] [address] Dr. Ashok Tayloresterol [Mass/Vol]215 mg/dLCritically high<=200The [facility] on above:Performed By: #### CMP, CK, TSH, LIPID #### [facility] [address] [place] [address] Dr. Ashok BaileyCholesterol in HDL [Mass/Vol]74 mg/dLCritically pwth96-15Uqr [facility] on above:Performed By: #### CMP, CK, TSH, LIPID #### [facility] [address] [place] [address] Dr. Ashok Tayloresterol in LDL [Mass/Vol]114.4 mg/dLCleveland Clinic Children's Hospital for RehabilitationComuniversity of mich[facility] health on above:Performed By: #### CMP, CK, TSH, LIPID #### [facility] [address] [place] [address] Dr. Ashok Tayloresterzenobia.total/Cholesterol in HDL [Mass ratio]2.9 {ratio} NormalThe [facility] HospitalComuniversity of mich[facility] health on above:Performed By: #### CMP, CK, TSH, LIPID #### [facility] [address] [address] [address] Ashok Martin NORMAL> or = 60 mg/dl - LOW CARDIOVASCULAR RISK <40 mg/dl - HIGH CARDIOVASCULAR RISKCleveland Clinic Children's Hospital for RehabilitationComment on above:Performed By: #### CMP, CK, TSH, LIPID #### [facility] [address] [address] [address] Ashok BaileyLDL CALC NORMALSEE BELOWCleveland Clinic Children's Hospital for RehabilitationComment on above:Result Comment: <100 mg/dl OPTIMAL 100 - 129 mg/dl NEAR OR ABOVE OPTIMAL 130 - 159 mg/dl BORDERLINE HIGH 160 - 189 mg/dl HIGH >190 mg/dl VERY HIGH Performed By: #### CMP, CK, TSH, LIPID #### [facility] [address] [address] [address] Ashok BaileyTriglyceride [Mass/Vol]133 mg/dLNormal<=150The [facility] Comment on above:Performed By: #### CMP, CK, TSH, LIPID #### [facility] [address] [place] [address] Dr. Ashok RamírezLDL CALC26.6 mg/dLNoChillicothe VA Medical CenterComment on above: Performed By: #### CMP, CK, TSH, LIPID #### [facility] [address] [place] [address] Dr. Ashok BaileyPROF 14(COMP METB)on 19-45-8020Bubcbsf [Mass/Vol]3.9 g/dLNormal 3.4-5.0The [facility] Hospitalment on above:Performed By: #### CMP, CK, TSH, LIPID #### [facility] [address] [address] [address] Ashok BaileyAlbumin/Globulin [Mass ratio]1.1 {ratio}NormalThe [facility] on above:Performed By: #### CMP, CK, TSH, LIPID #### [facility] [address] [address] [address] Ashok Salas [Catalytic activity/Vol]84 U/ACozfcw34-484Gok [facility] HospitalComment on above:Performed By: #### CMP, CK, TSH, LIPID #### [facility] [address] [address] [address] Ashok Meraz [Catalytic activity/Vol]18 U/XVsqkfp70-43Dkf [facility] HospitalComment on above:Performed By: #### CMP, CK, TSH, LIPID #### [facility] [address] [place] [address] Dr. Ashok Collazoon gap [Moles/Vol]15.1 mmol/LNormalHolzer Medical Center [facility] Comment on above:Performed By: #### CMP, CK, TSH, LIPID #### [facility] [address] [place] [address] Dr. Ashok Gallagher [Catalytic activity/Vol]11 U/LCritically asb30-35Jww [facility] HospitalComment on above:Performed By: #### CMP, CK, TSH, LIPID #### [facility] [address] [place] [address] Dr. Ashok BaileyBilirubin [Mass/Vol]0.3 mg/dLNormal0.2-1.0[facility] Comment on above:Performed By: #### CMP, CK, TSH, LIPID #### [facility] [address] [place] [address] Dr. Ashok BaileyCalcium [Mass/Vol]9.3 mg/dLNormal8.5-10.1[facility] Comment on above:Performed By: #### CMP, CK, TSH, LIPID #### [facility] [address] [place] [address] Dr. Ashok BaileyChloride [Moles/Vol]101 mmol/KCpbxho85-083BeoHolzer Medical Center – [facility] Comment on above:Performed By: #### CMP, CK, TSH, LIPID #### [facility] [address] [place] [address] Dr. Ashok BaileyCO2 [Moles/Vol]22.9 mmol/WOohqts12.0-32.0[facility] Comment on above:Performed By: #### CMP, CK, TSH, LIPID #### [facility] [address] [place] [address] Dr. Ashok BaileyCreatinine [Mass/Vol]1.67 mg/dLCritically high0.55-1.02[facility] Hospitalment on above:Performed By: #### CMP, CK, TSH, LIPID #### [facility] [address] [place] [address] Dr. Ashok MonterrosoGFR-AF COIYXPIP38 mL/min/1.12r0Gsrgindmxa low>=60The [facility] HospitalComment on above:Performed By: #### CMP, CK, TSH, LIPID #### [facility] [address] [place] [address] Dr. Ashok MonterrosoGFR-NON AF RJHHZMJE00 mL/min/1.92s7Imyhlajlfl low>=60The [facility] HospitalComment on above:Performed By: #### CMP, CK, TSH, LIPID #### [facility] [address] [place] [address] Dr. Ashok BaileyGlobulin (S) [Mass/Vol]3.5 g/dLNormalThe [facility] HospitalComment on above:Performed By: #### CMP, CK, TSH, LIPID #### [facility] [address] [place] [address] Dr. Ashok BaileyGlucose [Mass/Vol]96 mg/jVIdqlce85-369FfrHolzer Medical Center – [place] Comment on above:Performed By: #### CMP, CK, TSH, LIPID #### [facility] [address] [place] [address] Dr. Ashok BaileyPotassium [Moles/Vol]5.0 mmol/LNormal3.5-5.1[facility] Comment on above:Performed By: #### CMP, CK, TSH, LIPID #### [facility] [address] [place] [address] Dr. Ashok BaileyProtein [Mass/Vol]7.4 g/dLNormal6.4-8.2[facility] Comment on above:Performed By: #### CMP, CK, TSH, LIPID #### [facility] [address] [place] [address] Dr. Ashok Khannadium [Moles/Vol]134 mmol/LCritically amk438-694Zfw [facility] HospitalComment on above:Performed By: #### CMP, CK, TSH, LIPID #### [facility] [address] [address] [address] Ashok Lares nitrogen [Mass/Vol]27.0 mg/dLCritically high7.0-18.0The [facility] HospitalComment on above:Performed By: #### CMP, CK, TSH, LIPID #### [facility] [address] [place] [address] Dr. Ashok Lares nitrogen/Creatinine [Mass ratio]16.2 mg/mgNormalThe [facility] HospitalComment on above:Performed By: #### CMP, CK, TSH, LIPID #### [facility] [address] [place] [address] Dr. Ashok Pathak 56-91-7886EOV3.073 uIU/mLNormal0.358-3.740The [facility] HospitalComment on above:Performed By: #### CMP, CK, TSH, LIPID #### [facility] [address] [place] [address] Dr. Ashok JonPREHENSIVE METABOLIC PANELon 99-95-3558Jjjmahb [Mass/Vol]4.7 g/dLNormal3.6-5.1Quest DiagnosticsComment on above:Performed By: #### 3180, 18669 #### [facility] [address] Cuff Cutter: Austin Tobin MDAlbumin/Globulin [Mass ratio]1.8 {ratio}Normal 1.0-2.5Quest DiagnosticsComment on above:Performed By: #### 4210, 62324 #### [facility] [address] Cuff Cutter: Austin Tobin MDALP [Catalytic activity/Vol]84 U/YTsutdx61-862 Quest DiagnosticsComment on above:Performed By: #### 1390, 02817 #### [facility] of [address], [address] [place] [address] Cuff Cutter: Austin Tobin MDALT [Catalytic activity/Vol]13 U/LNormal6-29 Quest DiagnosticsComment on above:Performed By: #### 7600, 22098 #### [facility] of [address], [address] [place] [address] Cuff Cutter: Austin Tobin MDAST [Catalytic activity/Vol]12 U/JTnkwqn40-55 Quest DiagnosticsComment on above:Performed By: #### 7600, 82957 #### [facility] of [address], [address] [place] [address] Cuff Cutter: Austin Tobin MDBilirubin [Mass/Vol]0.3 mg/dLNormal0.2-1.2 Quest DiagnosticsComment on above:Performed By: #### 7600, 44649 #### [facility] of [address], [address] [place] [address] Cuff Cutter: Austin Tobin MDBUN/CREATININE RATIONOT APPLICABLENormal6-22 Quest DiagnosticsComment on above:Performed By: #### 7600, 62139 #### [facility] of [place] [address] Cuff Cutter: Austin Tobin MDCalcium [Mass/Vol]10.2 mg/dLNormal8.6-10.4 Quest DiagnosticsComment on above:Performed By: #### 7600, 24233 #### [facility] of [address], [address] [place] [address] Cuff Cutter: Austin Tobin MDChloride [Moles/Vol]99 mmol/FKdqcnc47-511Sywgl DiagnosticsComment on above:Performed By: #### 7600, 31160 #### [facility] of [address], [address] [place] [address] Cuff Cutter: Austin Tobin MDCO2 [Moles/Vol]29 mmol/IJgtrkz40-74Pinzq DiagnosticsComment on above:Performed By: #### 7600, 58073 #### [facility] [address], [address] [place] [address] Cuff Cutter: Austin WEINSTEINreatinine [Mass/Vol]0.71 mg/dLNormal0.60-0.93 Quest DiagnosticsComment on above:Result Comment: For patients >49 years of age, the reference limit for Creatinine is approximately 13% higher for people identified as -Mexican.Performed By: #### 7600, 64643 #### [facility] of [address], [address] [place] [address] Cuff Cutter: Austin Tobin MDeGFR NON-AFR. OGIQUAZQ44 mL/min/1.41g4Wghjhl> OR = 60Quest DiagnosticsComment on above:Performed By: #### 7600, 13680 #### [facility] [address], [address] [place] [address] Cuff Cutter: Austin Tobin MDGFR/1.73 sq M.predicted among blacks MDRD (S/P/Bld) [Vol rate/Area]97 mL/min/{1.73_m2}Normal> OR = 60[facility] Comment on above:Performed By: #### 7600, 45785 #### [facility] [address], [address] [place] [address] Cuff Cutter: Austin Tobin MDGlobulin (S) [Mass/Vol]2.6 g/dLNormal1.9-3.7 Quest DiagnosticsComment on above:Performed By: #### 7600, 45011 #### [facility] of [address], [address] [place] [address] Cuff Cutter: Austin Tobin MDGlucose [Mass/Vol]86 mg/sWMdnjrz09-64Myukd DiagnosticsComment on above:Result Comment: Fasting reference intervalPerformed By: #### 7600, 95334 #### [facility] [address], [address] [place] [address] Cuff Cutter: Austin Merati MDPotassium [Moles/Vol]4.4 mmol/LNormal3.5-5.3 Quest DiagnosticsComment on above:Performed By: #### 7600, 47397 #### [facility] of [address], [address] [place] [address] Cuff Cutter: Austin Tobin MDProtein [Mass/Vol]7.3 g/dLNormal6.1-8.1Quest DiagnosticsComment on above:Performed By: #### 7600, 46680 #### [facility] of [address], [address] [place] [address] Cuff Cutter: Austin Tobin MDSodium [Moles/Vol]135 mmol/EOihkhb200-466Hdpmv DiagnosticsComment on above:Performed By: #### 7600, 51945 #### [facility] of [place] [address] Cuff Cutter: Austin Tobin MDUrea nitrogen [Mass/Vol]10 mg/dLNormal7-25 Quest DiagnosticsComment on above:Performed By: #### 7600, 18862 #### [facility] of [address] [place] [address] Cuff Cutter: Austin Tobin MDLIPID PANEL, STANDARDon 07-09-7396Remyamymeny [Mass/Vol]214 mg/dLHigh<200Quest DiagnosticsComment on above:Performed By: #### 7600, 40459 #### [facility] of [address] [place] [address] Cuff Cutter: Austin Tobin MDCholesterol in HDL [Mass/Vol]85 mg/dLNormal> OR = 50Quest DiagnosticsComment on above:Performed By: #### 7600, 50574 #### [facility] of [address] [place] [address] Cuff Cutter: Austin Tobin MDCholesterol in LDL [Mass/Vol]108 mg/dLHigh Quest DiagnosticsComment on above:Result Comment: Reference range: <100 Desirable range <100 mg/dL for primary prevention; <70 mg/dL for patients with CHD or diabetic patients with > or = 2 CHD risk factors. LDL-C is now calculated using the Nikki calculation, which is a validated novel method providing better accuracy than the Friedewald equation in the estimation of LDL-C. Jordan HOU et al. JAUN. 2013;310(19): 7075-7121 (http://education.4Blox/faq/XFV901)Performed By: #### 7600, 38523 #### [facility] [address], [address] [place] [address] Cuff Cutter: Austin WEINSTEINholesterol.total/Cholesterol in HDL [Mass ratio]2.5 {ratio}Normal<5.0Quest DiagnosticsComment on above:Performed By: #### 7600, 20435 #### [facility] [address], [address] [place] [address] Cuff Cutter: Austin ROMANO HDL WQNOSKJTNFD778 mg/dL (calc)Normal<130 Quest DiagnosticsComment on above:Result Comment: For patients with diabetes plus 1 major ASCVD risk factor, treating to a non-HDL-C goal of <100 mg/dL (LDL-C of <70 mg/dL) is considered a therapeutic option.Performed By: #### 7600, 42102 #### [facility] [address], [address] [place] [address] Cuff Cutter: Austin Tobin MDTriglyceride [Mass/Vol]113 mg/dLNormal<150 Quest DiagnosticsComment on above:Performed By: #### 7600, 34168 #### [facility] [address] [address] Cuff Cutter: Austin WEINSTEINOMPREHENSIVE METABOLIC PANELon 05-04-2021 Albumin [Mass/Vol]4.3 g/dLNormal3.6-5.1Quest DiagnosticsComment on above: Performed By: #### 7600, 28892 #### [facility] [address], [address] [place] [address] Cuff Cutter: Austin Tobin MDAlbumin/Globulin [Mass ratio]1.8 {ratio}Normal 1.0-2.5Quest DiagnosticsComment on above:Performed By: #### 7600, 77584 #### [facility] of [address], [address] [place] [address] Cuff Cutter: Austin Tobin MDALP [Catalytic activity/Vol]82 U/WNjwreq29-541 Quest DiagnosticsComment on above:Performed By: #### 7600, 04534 #### [facility] of [address], [address] [place] [address] Cuff Cutter: Austin Tobin MDALT [Catalytic activity/Vol]11 U/LNormal6-29 Quest DiagnosticsComment on above:Performed By: #### 7600, 80679 #### [facility] of [address], [address] [place] [address] Cuff Cutter: Austin Tobin MDAST [Catalytic activity/Vol]12 U/ZMnmzgk04-33 Quest DiagnosticsComment on above:Performed By: #### 7600, 73014 #### [facility] of [place] [address] Cuff Cutter: Austin Tobin MDBilirubin [Mass/Vol]0.4 mg/dLNormal0.2-1.2 Quest DiagnosticsComment on above:Performed By: #### 7600, 74759 #### [facility] of [address], [address] [place] [address] Cuff Cutter: Austin Tobin MDBUN/CREATININE RATIONOT APPLICABLENormal6-22 Quest DiagnosticsComment on above:Performed By: #### 7600, 90159 #### [facility] of [address], [address] [place] [address] Cuff Cutter: Austin Tobin MDCalcium [Mass/Vol]9.4 mg/dLNormal8.6-10.4Quest DiagnosticsComment on above:Performed By: #### 7600, 90331 #### [facility] of [address], [address] [place] [address] Cuff Cutter: Austin WEINSTEINhloride [Moles/Vol]98 mmol/RBwrgik35-327Tgwnp DiagnosticsComment on above:Performed By: #### 7600, 61685 #### [facility] of [address], [address] [place] [address] Cuff Cutter: Austin Tobin MDCO2 [Moles/Vol]28 mmol/CFacavp79-54Bclai DiagnosticsComment on above:Performed By: #### 7600, 63024 #### [facility] [address], [address] [place] [address] Cuff Cutter: Austin WEINSTEINreatinine [Mass/Vol]0.73 mg/dLNormal0.60-0.93 Quest DiagnosticsComment on above:Result Comment: For patients >49 years of age, the reference limit for Creatinine is approximately 13% higher for people identified as -Mexican.Performed By: #### 7600, 93108 #### [facility] [address], [address] [place] [address] Cuff Cutter: Austin Tobin MDeGFR NON-AFR. JKRHKCPU21 mL/min/1.04h8Nbdodb> OR = 60Quest DiagnosticsComment on above:Performed By: #### 7600, 60398 #### [facility] [address], [address] [place] [address] Cuff Cutter: Austin Tobin MDGFR/1.73 sq M.predicted among blacks MDRD (S/P/Bld) [Vol rate/Area]95 mL/min/{1.73_m2}Normal> OR = 60[facility] Comment on above:Performed By: #### 7600, 65414 #### [facility] of [address], [address] [place] [address] Cuff Cutter: Austin Tobin MDGlobulin (S) [Mass/Vol]2.4 g/dLNormal1.9-3.7 Quest DiagnosticsComment on above:Performed By: #### 7600, 83226 #### [facility] [address] [address] Cuff Cutter: Austin Tobin MDGlucose [Mass/Vol]102 mg/aNUggsqx05-578Oxyto DiagnosticsComment on above:Result Comment: Non-fasting reference interval For someone without known diabetes, a glucose value between 100 and 125 mg/dL is consistent with prediabetes and should be confirmed with a follow-up test.Performed By: #### 7600, 71172 #### [facility] [place] [address] Cuff Cutter: Austin Tobin MDPotassium [Moles/Vol]4.3 mmol/LNormal3.5-5.3 Quest DiagnosticsComment on above:Performed By: #### 7600, 22184 #### [facility] [place] [address] Cuff Cutter: Austin Tobin MDProtein [Mass/Vol]6.7 g/dLNormal6.1-8.1Quest DiagnosticsComment on above:Performed By: #### 7600, 58265 #### [facility] [place] [address] Cuff Cutter: Austin Tobin MDSodium [Moles/Vol]132 mmol/JWlz542-621Ixrmk DiagnosticsComment on above:Performed By: #### 7600, 77143 #### [facility] [place] [address] Cuff Cutter: Austin Tobin MDUrea nitrogen [Mass/Vol]12 mg/dLNormal7-25 Quest DiagnosticsComment on above:Performed By: #### 7600, 91887 #### [facility] [place] [address] Cuff Cutter: Austin Tobin MDLIPID PANEL, STANDARDon 61-60-4496Fywfjofmqsl [Mass/Vol]168 mg/dLNormal<200Quest DiagnosticsComment on above:Order Comment: FASTING:NO FASTING: NOPerformed By: #### 7600, 73991 #### [facility] [address], [address] [place] [address] Cuff Cutter: Austin Tobin MDCholesterol in HDL [Mass/Vol]79 mg/dLNormal> OR = 50Quest DiagnosticsComment on above:Order Comment: FASTING:NO FASTING: NOPerformed By: #### 7600, 38485 #### [facility] [address], [address] [place] [address] Cuff Cutter: Austin WEINSTEINholesterol in LDL [Mass/Vol]73 mg/dLNormal Quest DiagnosticsComment on above:Order Comment: FASTING:NO FASTING: NOResult Comment: Reference range: <100 Desirable range <100 mg/dL for primary prevention; <70 mg/dL for patients with CHD or diabetic patients with > or = 2 CHD risk factors. LDL-C is now calculated using the Nikki calculation, which is a validated novel method providing better accuracy than the Friedewald equation in the estimation of LDL-C. Jordan SS et al. JAUN. 2013;310(19): 2916-2537 (http://education.[employer].Pradama/faq/XKK245)Performed By: #### 7600, 25491 #### [facility] [address], [address] [place] [address] Cuff Cutter: Austin Dalestsidra.total/Cholesterol in HDL [Mass ratio]2.1 {ratio}Normal<5.0Quest DiagnosticsComment on above:Order Comment: FASTING:NO FASTING: NOPerformed By: #### 7600, 76790 #### [facility] [address], [address] [place] [address] Cuff Cutter: Austin ROMANO HDL PVGGEBBITIF85 mg/dL (calc)Normal<130 [facility] DiagnosticsComment on above:Order Comment: FASTING:NO FASTING: NOResult Comment: For patients with diabetes plus 1 major ASCVD risk factor, treating to a non-HDL-C goal of <100 mg/dL (LDL-C of <70 mg/dL) is considered a therapeutic option.Performed By: #### 7600, 83397 #### [facility] [address] [facility], [address] [place] [address] Cuff Cutter: Austin Tobin MDTriglyceride [Mass/Vol]79 mg/dLNormal<150Quest DiagnosticsComment on above:Order Comment: FASTING:NO FASTING: NOPerformed By: #### 7600, 98651 #### [facility] [address] [facility], [address] [place] [address] Cuff Cutter: Austin Tobin MD Vital Signs Date TimeVital SignValuePerforming FtjrvxrfoFxrkphxx79-28-9665 11:120400Body kqdnuz740.5 cmDenMisticomng DO Work Phone: [facility]10-03-2025 11:12-0400Body mass index (BMI) [Ratio]26.59 kg/m0OtxobqMisticomng DO Work Phone: [facility] [email or web address] Knhjxj81-07-5778 11:12-0400Body pcatftpejbu30.2 [degF]Carson 123peopleng DO Work Phone: [facility]10-03-2025 11:12-0400Body ooewnb71.95 kgDennis 123peopleng DO Work Phone: [facility]10-03-2025 11:12-0400Diastolic blood jjdxsecs49 mm[Hg]Carson VoIPshield Systemslong DO Work Phone: [facility] [employer] Gruorb24-03-5561 11:12-0400Heart rate 62 /minDBlue Sourceis VoIPshield Systemslong DO Work Phone: [facility]10-03-2025 11:12-0400 Respiratory rate20 /minDennis VoIPshield Systemslong DO Work Phone: [facility]10-03-2025 11:12-9677FqG7% (BldA) [Mass fraction]97 %Carson Biggslong DO Work Phone: [facility] [employer] Wykjbo97-13-9935 11:12-0400Systolic blood evptnlnr840 mm[Hg]Carson Kalyanlong DO Work Phone: [facility]08-07-2025 09:25-0400Body .5 cmDennis Kalyanlong DO Work Phone: [facility]08-07-2025 09:25-0400Body mass index (BMI) [Ratio]26.16 kg/d3Ejiifx Kalyanlong DO Work Phone: [facility]08-07-2025 09:25-0400Body maefvz15.86 kgDenmanisha Biggslong DO Work Phone: [facility] [email or web address] Plzbfn98-06-4986 09:25-0400Diastolic blood ngsvojhj68 mm[Hg]Carson Biggslong DO Work Phone: [facility] [employer] Iqshib94-45-2303 09:25-0400Systolic blood tzbslupz055 mm[Hg]Carson Biggslong DO Work Phone: [facility]04-03-2025 11:08-0400Body ofypjn605.5 cmDenmanisha Biggslong DO Work Phone: [facility]04-03-2025 11:08-0400Body mass index (BMI) [Ratio]26.7 kg/l1Immcya Kalyanlong DO Work Phone: [facility] [email or web address] Kkgtpv99-45-1924 11:08-0400Body htzisxyuozc82.9 [degF]Carson Biggslong DO Work Phone: [facility]04-03-2025 11:08-0400Body qwnrdu26.22 kgDennis Kalyanlong DO Work Phone: [facility] [facility] 11:08-0400Diastolic blood mm[Hg]Carson Biggslong DO Work Phone: [facility]04-03-2025 11:08-0400Heart rate 75 /Júnior Biggslong DO Work Phone: [facility]04-03-2025 11:08-0400 Respiratory rate18 /Júnior Biggslong DO Work Phone: [facility]04-03-2025 11:08-6657RmZ9% (BldA) [Mass fraction]99 %Carson Biggslong DO Work Phone: [facility]04-03-2025 11:08-0400Systolic blood yllevrzd142 mm[Hg]Carson Kohling DO Work Phone: [facility]02-04-2025 10:57-0500Body iyohqc762.02 [facility]25 10:57-0500Body mass index (BMI) [Ratio]26 kg/e7WwoenetrfGenesis Hospital02-04-2025 10:57-0500Body zbjwbxlidhq56.8 [degF][facility]02-04-2025 10:57-0500Body bbofza82.67 kg[facility]02-04-2025 10:57-0500Diastolic blood rlaufpts33 mm[Hg][facility] 04-09-2024 10:57-0500Heart rate61 /[facility] 04-09-2024 10:57-0500Respiratory rate16 /[facility] 04-09-2024 10:57-0500Systolic blood mm[Hg][facility]01-07-2025 16:12-0500Body neduhg666.5 cmCarson Kohling DO Work Phone: [facility]01-07-2025 16:12-0500Body mass index (BMI) [Ratio]27.4 kg/s7Wgflwb Furlong DO Work Phone: [facility] [employer] Maahji36-57-4139 16:12-0500Body vrccagiomsj00.9 [degF]Carson Biggslong DO Work Phone: [facility] [employer] Eludgp48-87-0341 16:12-0500Body alqnem81.95 kgDennis Kalyanlong DO Work Phone: [phone] [employer] Szigpq36-38-4294 16:12-0500Diastolic blood ouxnblrn42 mm[Hg]Carson Biggslong DO Work Phone: [phone] [employer] Hxvabr03-99-4894 16:12-0500Heart rate 88 /Júnior Biggslong DO Work Phone: [facility] [employer] Xtikvl28-76-0745 16:12-0500 Respiratory rate18 /Júnior Kohling DO Work Phone: [facility] [employer] Uesusg21-55-0660 16:12-9181SxH9% (BldA) [Mass fraction]95 %Carson Kohling DO Work Phone: [facility] [employer] Sistyy02-10-4830 16:12-0500Systolic blood ebenlggl200 mm[Hg]Carson Kohling DO Work Phone: [facility] [employer] Mfxdtx81-32-8383 13:02-0400Body bjujnf909.5 cmDenmanisha Biggslong DO Work Phone: [facility] [employer] Kwbzda71-98-0568 13:02-0400Body mass index (BMI) [Ratio]26.26 kg/b4Lcvqni Furlong DO Work Phone: [facility] [employer] Xqfsfg05-23-6479 13:02-0400Body qwvwtuunlpv34.1 [degF]Carson Kohling DO Work Phone: [facility] [employer] Ddjklc99-18-5830 13:02-0400Body amnsbq34.14 kgDenmanisha Kohling DO Work Phone: [facility] [employer] Asdanz08-39-4930 13:02-0400Diastolic blood ectnfvnu86 mm[Hg]Carson Kohling DO Work Phone: [facility]10-24-2024 13:02-0400Heart rate 78 /Júnior Biggslong DO Work Phone: [facility]10-24-2024 13:02-0400 Respiratory rate20 /Amishais Kalyanlong DO Work Phone: [facility]10-24-2024 13:02-0561GdE3% (BldA) [Mass fraction]96 %Carson Biggslong DO Work Phone: [facility]10-24-2024 13:02-0400Systolic blood gdtpafpt873 mm[Hg]Carson Kohling DO Work Phone: [facility]08-20-2024 10:52-0400Body qyufwv578.02 cmGen[facility]08-20-2024 10:52-0400Body mass index (BMI) [Ratio]24.5 kg/j2VglxelhggGenesis Hospital08-20-2024 10:52-0400Body eivxnmcmwlk96.8 [degF][facility]08-20-2024 10:52-0400Body opxmec00.76 kgGen[facility]08-20-2024 10:52-0400Diastolic blood pbykpmuf39 mm[Hg][facility] 10-24-2023 10:52-0400Heart rate80 /minGen[facility] 10-24-2023 10:52-0400Respiratory rate18 /[facility] 10-24-2023 10:52-7277LvM1% (BldA) [Mass fraction]99 %[facility]08-20-2024 10:52-0400Systolic blood xtmkgebc749 mm[Hg][facility]08-06-2024 10:37-0400Body kydpyi283.5 cmCarson Kohling DO Work Phone: [facility]08-06-2024 10:37-0400Body mass index (BMI) [Ratio]26.14 kg/a6Dvowhu Furlong DO Work Phone: [facility] CenterAkimbo Vbrvol73-91-1541 10:37-0400Body zjmgaf45.82 kgDennis Furlong DO Work Phone: [facility] [employer] Wqfjrh81-17-1833 10:37-0400Diastolic blood pxvobiku60 mm[Hg]Carson Furlong DO Work Phone: [facility] [employer] Oxqnsp78-39-2639 10:37-0400Systolic blood rqvzusvr944 mm[Hg]Carson Furlong DO Work Phone: [facility] [employer] Eqthrs41-53-7382 13:39-0400Body hytuhv071 cmDennis Kalyanlong DO Work Phone: [facility] [employer] Wmjqky83-16-5830 13:39-0400Body mass index (BMI) [Ratio]25.3 kg/w9Ouhsai Furlong DO Work Phone: [facility] [employer] Qttjyb67-84-4855 13:39-0400Body ulxcbrmoxsu49.9 [degF]Carson Biggslong DO Work Phone: [facility] [employer] Qosswo69-32-6787 13:39-0400Body ixdtsm70.77 kgDennis Kalyanlong DO Work Phone: [facility] [employer] Sabqtl28-14-7956 13:39-0400Diastolic blood rgofmwdc62 mm[Hg]Carsonmanisha Biggslong DO Work Phone: [facility] [employer] Vezsdk16-21-5630 13:39-0400Heart rate 81 /minDerrolis Furlong DO Work Phone: [facility] [employer] Laqxey56-46-5331 13:39-0400 Respiratory rate18 /minDennis Furlong DO Work Phone: [facility] [employer] Ebwkhw85-45-7623 13:39-3730UpG2% (BldA) [Mass fraction]99 %Carson Kalyanlong DO Work Phone: [facility] CenterAkimbo Weawzu64-87-9351 13:39-0400Systolic blood uiscpqyy403 mm[Hg]Carson Furlong DO Work Phone: [facility] [employer] Krzqzu95-53-6547 11:33-0400Body ngjufm456 cmDennis Furlong DO Work Phone: [facility] [employer] Ujvwuc24-46-0999 11:33-0400Body mass index (BMI) [Ratio]25.35 kg/d2Dyxwkc Furlong DO Work Phone: [facility] [employer] Gavzdf12-39-1285 11:33-0400Body olvtcodxjnd40.5 [degF]Carson Biggslong DO Work Phone: [facility] [employer] Ipheqr36-14-5994 11:33-0400Body juxkiw50.91 kgDenmanisha Biggslong DO Work Phone: [facility] [employer] Rgguox59-55-1708 11:33-0400Diastolic blood rtnyzrcn06 mm[Hg]Carson Furlong DO Work Phone: [facility] CenterAkimbo Daezwz69-41-7244 11:33-0400Heart rate 97 /minDerrolis Furlong DO Work Phone: [facility] [employer] Izhgow77-86-1384 11:33-0400 Respiratory rate24 /minDennis Furlong DO Work Phone: [facility] [employer] Wsoklf49-24-2301 11:33-3057MaJ7% (BldA) [Mass fraction]100 %Carson Furlong DO Work Phone: [facility] CenterAkimbo Fahqnv43-44-6515 11:33-0400Systolic blood mm[Hg]Carson Biggslong DO Work Phone: [facility] [employer] Vhqnwi28-17-5957 09:54-0500Body lzbuwx559 cmGood Dan [employer]ENT[employer] SUPERVISOR-INFORMATION ASSURANCE SPECIALIST Work Phone: [facility] [employer] Ivdled62-55-6820 09:54-0500Body mass index (BMI) [Ratio]25.51 kg/m1DifsulGood Dan APRN-INFORMATION ASSURANCE SPECIALIST Work Phone: [facility] [employer] Vmkbbp95-17-3228 09:54-0500Body oiquluuvppx34.01 [degF]Good Dan APRN-INFORMATION ASSURANCE SPECIALIST Work Phone: [facility] [employer] Otxfva78-54-7468 09:54-0500Body ibpxzn74.32 kgBrles Dan APRN-INFORMATION ASSURANCE SPECIALIST Work Phone: [facility]02-23-2024 09:54-0500Diastolic blood eshnnktj26 mm[Hg]Good Dan APRN-INFORMATION ASSURANCE SPECIALIST Work Phone: [facility]02-23-2024 09:54-0500Heart rate 79 /minGood Dan APRN-INFORMATION ASSURANCE SPECIALIST Work Phone: [facility] [employer] Llnfnf54-64-8770 09:54-7170FzL7% (BldA) [Mass fraction]87 %Good Dan APRN-INFORMATION ASSURANCE SPECIALIST Work Phone: [facility] [employer] Ltxnlv32-38-3813 09:54-0500Systolic blood paogvskx701 mm[Hg]Good Dan APRN-INFORMATION ASSURANCE SPECIALIST Work Phone: [facility] [employer] Kijmmq64-75-4580 08:33-0500Body moqdmf247 cmGood Dan APRN-INFORMATION ASSURANCE SPECIALIST Work Phone: [facility] [employer] Cgjjsz82-60-3340 08:33-0500Body mass index (BMI) [Ratio]24.66 kg/x2TvurgeGood aDn APRN-INFORMATION ASSURANCE SPECIALIST Work Phone: [facility] [employer] Hqyaov38-82-8678 08:33-0500Body gbznorsxnig98.9 [degF]Good Dan APRN-INFORMATION ASSURANCE SPECIALIST Work Phone: [facility] [employer] Ixuuxx07-73-2790 08:33-0500Body owhtye29.14 kgGood Dan APRN-INFORMATION ASSURANCE SPECIALIST Work Phone: [facility]01-25-2024 08:33-0500Diastolic blood qcabjbbs23 mm[Hg]Good Dan APRN-INFORMATION ASSURANCE SPECIALIST [facility] 08:33-0500Heart rate 78 /minGood Dan APRN-INFORMATION ASSURANCE SPECIALIST [facility] Phone: [facility]-25-2024 08:33-6614QxV9% (BldA) [Mass fraction]100 %Good Dan APRN-INFORMATION ASSURANCE SPECIALIST Work Phone: [facility]-25-2024 08:33-0500Systolic blood lwlztvad292 mm[Hg]Good Dan APRN-INFORMATION ASSURANCE SPECIALIST Work Phone: [facility]01-23-2024 11:20-0500Body .02 Lulu Alonso Other [employer] Other 695486-10-5030 11:20-0500Body mass index (BMI) [Ratio] 24.83 kg/m2Bri Alonso Other [employer] Other 01-23-2024 11:20-0500Body opbcmsacynf64.9 [degF]Bri Alonso Other [employer] Other 01-23-2024 11:20-0500Body bontuj81.59 kgBri Alonso Other [employer] Other 01-23-2024 11:20-0500Diastolic blood chifxhel02 mm[Hg] Bri Alonso Other [employer] Other 01-23-2024 11:20-0500Systolic blood udefoihk750 mm[Hg] Bri Alonso Other [employer] [employer] Other 08-08-2023 14:20-0400Body .02 cmAneisha Fays Other [employer] Other 08-08-2023 14:20-0400Body mass index (BMI) [Ratio]24.8 kg/m2Azlokesh Fays Other [employer] Other 485997-25-8791 14:20-0400Body sprkatyzojz25.4 [degF]Azlokesh Fays Other [employer] Other 892091-73-4801 14:20-0400Body .5 kgBri Fays Other [employer] Other 08-08-2023 14:20-0400Diastolic blood nnvxnxzy82 mm[Hg] Aziz Bakleslies Other [employer] Other 08-08-2023 14:20-0400Respiratory rate18 /minAzlokesh Bakleslies Other [employer] Other 08-08-2023 14:20-0400Systolic blood mm[Hg] Aziz Bakleslies Other [employer] Other 04-04-2023 10:20-0400Body .02 Jewelneisha Fays Other [employer] Other 04-04-2023 10:20-0400Body mass index (BMI) [Ratio] 24.55 kg/m2Azlokesh Bakleslies Other [employer] Other 04-04-2023 10:20-0400Body gnefhscuavn11.2 [degF]Bri Alonso Other [employer] Other 04-04-2023 10:20-0400Body ogskut05.87 kgAzlokesh Alonso Other [employer] Other 04-04-2023 10:20-0400Diastolic blood psbvoftb06 mm[Hg] Azlokesh Alonso Other [employer] Other 04-04-2023 10:20-0400Respiratory rate18 /minBri Alonso Other [employer] Other 04-04-2023 10:20-5903YvP5% (BldA) [Mass fraction]97 % Bir Alonso Other [employer] Other 04-04-2023 10:20-0400Systolic blood mm[Hg] Azlokesh Fays Other [employer] Other 02-21-2023 09:40-0500Body heightAzlokesh Alonso Other [employer] Other 02-21-2023 09:40-0500Body mass index (BMI) [Ratio] 24.97 kg/m2Bri Fays Other [employer] Other 02-21-2023 09:40-0500Body upcrbs33.96 kgAzlokesh Fays Other [employer] Other 02-21-2023 09:40-0500Diastolic blood hazkwndk12 mm[Hg] Bri Alonso Other [facility] [employer] Other 250143-42-2358 09:40-2854QmO1% (BldA) [Mass fraction]98 % Bri Alonso Other [employer] Other 02-21-2023 09:40-0500Systolic blood nqzkmwyn224 mm[Hg] Bri Alonso Other [employer] [employer] Other Encounters Encounter DateEncounter TypeCare ProviderFacilityStart: 12-23-2024 End: 87-71-7703DicdpoSxbmnd G Furlong DO Work Phone: [facility] - Family MedicineStart: 12-06-2024 End: 43-64-7692Ymngkq outpatient visit [facility] centerC[facility] DO Work Phone: [facility] - Family MedicineComment on above: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 ([facility]-H[facility]) (Primary Dx); Gastroesophageal reflux disease without esophagitis; Chronic obstructive pulmonary disease, unspecified COPD type ([facility]); Sleep disturbance; Need for immunization against influenzaStart: 12-06-2024 End: 23-22-7802XlphqpUnnacu G Furlong DO Work Phone: [facility] - Family MedicineStart: 10-10-2024 End: 69-44-1426Ymtjuhm encounter procedureCarson De Jesus DO Work Phone: [facility] - Family MedicineComment on above:Medicare annual wellness visit, subsequent (Primary Dx); Screening for depressionStart: 10-10-2024 End: 44-54-7516zxzskohggdSUGBTG G FURLONGParkview [facility] Ambulatory PPGStart: 09-26-2024 End: 29-04-6874RmhrskIkhebv G Furlong DO Work Phone: [facility] - [facility] MedicineStart: 07-01-2024 End: 99-61-4477VianvjNudmhi G Furlong DO Work Phone: [facility] - [facility] MedicineStart: 06-12-2024 End: 02-28-7586Giiiks Pedro De Jesus DO Work Phone: [facility] CarrolltonComment on above:Primary osteoarthritis of both shoulders (Primary Dx) Start: 06-07-2024 End: 17-87-5826Mwjrsf Pedro De Jesus DO Work Phone: [facility] - [facility] MedicineStart: 06-06-2024 End: 08-74-1581twogwzhhdzVCDWHV G FURPANBellevue Hospitaltart: 06-06-2024 End: 84-47-9613Ezdjuh outpatient visit 25 Yamel De Jesus DO Work Phone: [facility] Internal [facility] - [facility] CarrolltonComment on above: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 (CMS-HCC) (Primary Dx); Gastroesophageal reflux disease without esophagitis; Acquired hypothyroidism; Hyperlipidemia, unspecified hyperlipidemia type; Hiatal hernia; Overweight (BMI 25.0-29.9)Start: 06-06-2024 End: 30-56-8402pkkrvqxxahKSXZRA G [facility] Ambulatory PPGStart: 04-23-2024 End: 51-54-9712CxnprrMhzttm G Furlong DO Work Phone: [facility] Internal Medicine [facility] RedmondComment on above:Essential hypertensionStart: 04-09-2024 End: 96-61-1232hdeirnfghqXgwpkcyhqBarnesville Hospital Work Phone: Start: 04-09-2024 End: 45-97-3049Menrgqj encounter procedureAt[facility] Ne[facility] Work Phone: Start: 22-19-6741Zxg-patient / Non-visitAt[facility] Health [facility]gl[facility] Work Phone: Start: 03-12-2024 End: 58-41-6428Vkwpnt outpatient visit 15 minutesCarson De Jesus DO Work Phone: [facility] Internal Medicine - Family MedicineComment on above:Post-herpetic polyneuropathy (Primary Dx)Start: 03-12-2024 End: 47-31-9095vlofpliaakUJWIOG Mustapha [facility] Ambulatory PPGStart: 03-04-2024 End: 23-76-1656Qtdemmckd encounterCarson De Jesus DO Work Phone: [facility] MedicineStart: 02-29-2024 End: 29-97-4179Aidzxt OnlyCarson De Jesus DO Work Phone: [facility] - [facility] MedicineStart: 02-22-2024 End: 59-58-8949htajelhfgdHZFYQI Mustapha [facility] Ambulatory PPGStart: 01-31-2024 End: 09-12-1654KovaueIvmuwps ForridKentfield HospitalMedica [facility] - Family MedicineStart: 01-03-2024 End: 96-09-3657TeqxjoDpmnea G Furlong DO Work Phone: [facility] Internal Medicine - Family MedicineStart: 01-01-2024 End: 13-02-9494LytceePigpve G Furlong DO Work Phone: [facility] - Family MedicineStart: 12-28-2023 End: 12-11-7512Rvmrrj outpatient visit 25 minutesCarson De Jesus DO Work Phone: [facility] - Family MedicineComment on above:Anxiety (Primary Dx); Sleep disturbance; Cigarette smoker; Need for immunization against influenza; Fibromyalgia; Postlaminectomy syndrome, not elsewhere classified; Hyperlipidemia, unspecified hyperlipidemia typeStart: 12-28-2023 End: 42-83-6043dghbuefecwCOVOXBMuscogee PPGStart: 12-25-2023 End: 20-91-4053wtpqzkuypzZcwhwdkLiliana Mooney MDFacility:[facility] [place] Start: 10-24-2023 End: 09-32-0400kcbsufcmvqLhvqlooorKettering Health [facility] Work Phone: Start: 10-24-2023 End: 19-14-7814Kqcsenc encounter procedureAt[facility] Nephrology [place] Work Phone: Start: 37-41-6659Fgf-patient / Non-visitAtrium Health [facility] Work Phone: Start: 10-16-2023 End: 90-58-7190deijmfkrucStdrzqtLiliana Mooney MDFacility:[facility] [place] Start: 10-10-2023 End: 42-98-1076QtpmhrRyrstx G Furlong DO Work Phone: [facility] - Family MedicineComment on above:AnxietyStart: 10-10-2023 End: 17-79-7590Zgnnuoh encounter procedureDenmanisha Kohling DO Work Phone: [facility] - Family MedicineComment on above:Medicare annual wellness visit, subsequent (Primary Dx); Screening for depressionStart: 10-06-2023 End: 25-74-4847VwiekvPsolzu G Furlong DO Work Phone: [facility] - Family MedicineComment on above:Essential hypertensionStart: 09-28-2023 End: 58-63-1670Gutwkgkid encounterDennis Mustapha Kohling DO Work Phone: [facility] - Family MedicineStart: 09-26-2023 End: 82-87-5604Luayfs outpatient visit 25 minutesDennis Mustapha Kohling DO Work Phone: [facility] - Family MedicineComment on above:Localized osteoarthrosis of both shoulder regions (Primary Dx); Postlaminectomy syndrome, not elsewhere classified; Tobacco dependence syndrome; FibromyalgiaStart: 09-16-2023 End: 40-35-2456ZhbirkIcpisq G Furlong DO Work Phone: [facility] - Family MedicineStart: 09-10-2023 End: 30-09-4126UqliziMqotqk Mustapha Furlong DO Work Phone: [facility] - Family MedicineComment on above:FibromyalgiaStart: 08-31-2023 End: 59-23-8326Ebofkq Jericho Dan [employer] SUPERVISOR-INFORMATION ASSURANCE SPECIALIST Work Phone: [facility] - Family MedicineStart: 08-24-2023 End: 20-70-7333VmeoomEnmgb Jeremy [facility] - Family MedicineComment on above:Postlaminectomy syndrome, not elsewhere classifiedStart: 08-21-2023 End: 08-24-5224SwavvfCzucbq G Furlong DO Work Phone: [facility] - Family MedicineStart: 08-15-2023 End: 55-38-9567Xavddycvm encounterDenmanisha Kohling DO Work Phone: [facility] - Family MedicineStart: 07-26-2023 End: 59-91-0897PvezxjFqqbs Jeremy [facility] Internal Medicine - Family MedicineComment on above:Postlaminectomy syndrome, not elsewhere classifiedStart: 07-14-2023 End: 74-87-9159yvrvpgemhmDOEHBL Michelle Henry AvailableStart: 07-03-2023 End: 73-33-3943Tjjcxf OnlyCarson Biggslong DO Work Phone: [facility] Medicine - Family MedicineComment on above:Postlaminectomy syndrome, not elsewhere classified (Primary Dx)Start: 06-30-2023 End: 25-01-8016Wwvuxkiny encounterKim Diamond [facility] - Family MedicineComment on above:Preventative ScreeningStart: 06-28-2023 End: 96-71-0871krkwvrejgkVRJQHJ G FURLONGProGood Samaritan Hospitalca [facility] HospitalStart: 06-28-2023 End: 71-24-4504Gzznxa outpatient visit 25 minutesCarson De Jesus DO Work Phone: [facility] Internal Medicine - Family MedicineComment on above: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 (CMS-HCC) (Primary Dx); Acquired hypothyroidism; Fibromyalgia; Anxiety; Postlaminectomy syndrome, not elsewhere classified; Sleep disturbance; Tobacco dependence syndrome; Spinal stenosis of lumbar region without neurogenic claudication; Hypokalemia; Hyperlipidemia, unspecified hyperlipidemia typeStart: 96-53-0316Tjcnao Only Carson De Jesus DO Work Phone: [facility] Internal [facility] - Family MedicineComment on above:Special screening for malignant neoplasm of colon (Primary Dx)Start: 15-13-6390YaljoaWqybkguzNatalee Bennett CMAVermont State HospitalMedica [facility] Internal Medicine - Family MedicineComment on above:Lumbosacral spondylosis without myelopathyStart: 05-19-2023 End: 67-15-5638byvizcacdhGVHFPD L WINANSNot AvailableStart: 2023 End: 85-48-0220okvkfgeaxuQdtjk A BaileyFacility:Kindred Healthcaretart: 34-78-7916PopeysFgfjn Jeremy [facility] Internal Medicine - Family MedicineComment on above:Lumbosacral spondylosis without myelopathyStart: 61-22-7451OplogwFfxawu L Rauch [employer] SUPERVISOR-INFORMATION ASSURANCE SPECIALIST Work Phone: [facility] Internal Medicine - Family MedicineStart: 04-28-2023 End: 44-39-2775Vsubga outpatient visit 15 minutesGood Dan [employer] SUPERVISOR-INFORMATION ASSURANCE SPECIALIST Work Phone: [facility] Internal Medicine - Family MedicineComment on above:Primary osteoarthritis of both shoulders (Primary Dx); Tobacco dependence syndrome; Lumbosacral spondylosis without myelopathyStart: 23-68-1935FmwdhtRcfkm Jeremy [facility] Internal Medicine - Family MedicineComment on above: Essential hypertensionStart: 84-11-0095Vhzckw flowsheetYulia FOSTER Work Phone: [facility] DERMStart: 37-23-0422Ehxezf flowsheetAlischase FOSTER Work Phone: [facility] DERMStart: 04-07-2023 End: 77-66-1732itmvzrkjlcNYJBKU Michelle Henry AvailableStart: 04-07-2023 End: 34-45-4313Sptdxmp encounter procedureYulia Hernández PA Work Phone: [facility] DERMComment on above:Actinic keratosis (Primary Dx)Start: 03-30-2023 End: 17-60-6043Lcvdow outpatient visit 15 minutesGood Dan CARPENT[employer] SUPERVISOR-INFORMATION ASSURANCE SPECIALIST Work Phone: [facility] - Family MedicineComment on above:Chronic pain of both shoulders (Primary Dx); Peripheral vascular disease ([facility]); Stage 3b chronic kidney disease ([facility]); Smoker; Lumbosacral spondylosis without myelopathyStart: 03-28-2023 End: 85-20-9153mxnctkdxqpZmbg Bakhous Other [facility] [employer] Other Start: 89-11-7985Xdlvwx outpatient visit 25 minutes Bri Cota [facility]ph[facility] ClydeStart: 05-96-0504NhrikaBbbhef G Furlong DO Work Phone: [facility] - Family MedicineStart: 03-10-2023 End: 58-48-1098pbwgpwuzwaTMPKAX Michelle Henry AvailableStart: 03-07-2023 End: 23-47-2922tepwfwjegeZWXZBX Michelle DANProCommunity Regional Medical Center HospitalStart: 61-59-4758Afsvso OnlyGood Dan [employer]PENT[employer] SUPERVISOR-INFORMATION ASSURANCE SPECIALIST Work Phone: [facility] - Family MedicineStart: 71-31-9428EejjinKtihonveTorri MooreMedica Physicians Internal Medicine - Family MedicineComment on above:Lumbosacral spondylosis without myelopathyStart: 02-20-2023 End: 99-18-6480lfdspjtfrwEPYNHK Michelle DANProLas Palmas Medical Centertart: 10-11-2022 End: 06-40-6054rzzdxhrudzUwdj Bakhous Other [employer] Other Start: 77-07-0625Xxjqsf outpatient visit 25 minutes Azlokesh ValdezG Nephrology ClydeStart: 06-07-2022 End: 84-09-3528rxcwuvynwhTobc Bakhous Other [employer] Other Start: 82-34-9513Zjgduhc encounter procedureAzlokesh FaysFPG Nephrology ClydeStart: 06-01-2022 End: 50-93-0945qrmrawxhmgDWEA BAKHOUSFacility:H2Ahkyl: 05-03-2022 End: 89-12-2304hfmvifiqjrEVMA BAKHOUSFacility:V6Taaey: 04-26-2022 End: 62-48-4988ipqwlyrsltCdtm Bakhous Other [employer] Other Start: 86-66-1205Hprsgq outpatient new 30 minutesAziz GavinFPG Nephrology ClydeStart: 03-25-2022 End: 72-62-4971jufdrgbcteAJ CARSON Luciano FURLONGFacility:F1Qbphc: 11-12-2021 End: 36-22-0146bdvsyhgmnlMV CARSON Mustapha FURLONGFacility:E6Mrhop: 11-04-2021 End: 99-62-5197umlupnpyzxZAFOHTZT ZAHLERFacility:W7Kfczf: 10-07-2021 End: 20-31-5254gvjmdvgijmNAKXOBCR ZAHLERFacility:H1 Procedures DateProcedureProcedure DetailPerforming ClinicianStart: 27-13-2107Pkvasc-up visitFollow-upDPHILOMENA Luciano FURLONGStart: 13-28-0808Yvxzj depression screening assessmentDennis Furlong DO Work Phone: Start: 07-86-4813Wntjq depression screening assessment Carson Furlong DO Work Phone: Start: 52-56-8952Zclrj depression screening assessment Carson Furlong DO Work Phone: Start: 95-38-3112Apbpy depression screening assessment Carson Furlong DO Work Phone: Start: 79-65-3134Gbdxf depression screening assessment Carson Furlong DO Work Phone: Start: 91-82-8495Ozpgs depression screening assessment Carson Furlong DO Work Phone: Start: 07-45-4519Iqqnq depression screening assessment Carson Furlong DO Work Phone: Start: 10-66-5780Hgeaz depression screening assessment Good Dan CARPENTERS SUPERVISOR-INFORMATION ASSURANCE SPECIALIST Work Phone: Start: 14-99-4872KBDQOCKKWVR SKIN LESIONAlison Michelle Yevgeniy PA Work Phone: Start: 51-29-4369Gvuwf depression screening assessment Good Dan CARPENTERS SUPERVISOR-INFORMATION ASSURANCE SPECIALIST Work Phone: Start: 03-70-6249Fjxfj depression screening assessment Good Dan CARPENTERS SUPERVISOR-INFORMATION ASSURANCE SPECIALIST Work Phone: Plan of Treatment DateCare ActivityDetailAuthorStart: 32-90-2527Shpaqvoxhf ScreeningDepression ScreeningProMedica Health SystemStart: 67-83-3046Rrrh Risk ScreeningFall Risk ScreeningProMedica Health SystemStart: 27-22-3045Mtmduce ScreeningTobacco ScreeningProMedica Health SystemStart: 10-14-2025 End: 14-65-7527Cbboryr encounter qbzqeripf71/11/2026 1:00 PM EDT Office Visit [facility] [address] [place] [address] OrgSosivi [facility] Internal Medicine - Family MedicineStart: 74-95-3038Vvekxoncaf ScreeningDepression ScreeningProMedica Health SystemStart: 58-45-7144Webu Risk ScreeningFall Risk ScreeningProMedica Health SystemStart: 08-07-2026Medicare Annual Wellness VisitMedicare Annual Wellness VisitProMount St. Mary Hospital SystemStart: 34-05-0165Uondslw ScreeningTobacco ScreeningProGood Samaritan Hospitalca [facility] SystemStart: 02-14-9815Mdyvmnffpu ScreeningDepression ScreeningProMount St. Mary Hospital SystemStart: 79-14-0064Xguviwb ScreeningTobacco ScreeningProMount St. Mary Hospital SystemStart: 06-06-2025 End: 51-51-3569Ieytgxc encounter zgtcgmmgy60/03/2026 11:15 AM EDT Office Visit [facility] [address] [place] [address] Carson De Jesus DO [address], [facility] [place] [address] [facility] - [facility] MedicineStart: 24-12-7070Cebtuxn Screening Tobacco ScreeningProMount St. Mary Hospital SystemStart: 98-26-8751Blzmyyo Screening Tobacco ScreeningProMount St. Mary Hospital SystemStart: 96-15-6247Lzagr BMI Screening Adult BMI ScreeningMetroHealth Parma [facility] SystemStart: 69-07-4958Iihjwgjelz Screening Depression ScreeningMetroHealth Parma Medical Center SystemStart: 14-61-4735Ptyq Risk Screening Fall Risk ScreeningMetroHealth Parma Medical Center SystemStart: 54-75-3906Fbmxwpe Screening Tobacco ScreeningMetroHealth Parma Medical Center SystemStart: 12-06-2024 End: 18-47-9970Uawbogu encounter smsismxnt27/03/2025 11:15 AM EDT Office Visit [facility] [address] [place] [address] Carson De Jesus DO [address] [address] [facility] MedicineStart: 25-69-2985Idmozabtv vaccinationInfluenza VaccineProMount St. Mary Hospital SystemStart: 10-10-2024 End: 28-08-5098Ufutjwr encounter vvzknqujh95/07/2025 9:40 AM EDT [facility] [address] [place] [address] WwoBcmetq [facility]icians [facility] Medicine [facility]tart: 37-20-2942Yteph BMI ScreeningAdult BMI ScreeningProMount St. Mary Hospital SystemStart: 11-92-1956Fhbgdzcvvx ScreeningDepression ScreeningProMount St. Mary Hospital SystemStart: 14-57-4428Yldt Risk ScreeningFall Risk ScreeningMetroHealth Parma Medical Center SystemStart: 08-06-2025Medicare Annual Wellness VisitMedicare Annual Wellness VisitMetroHealth Parma Medical Center SystemStart: 39-91-5657Eanawcc ScreeningTobacco Screening [facility]tart: 61-23-8049Akeic BMI ScreeningAdult BMI Screening [facility] SystemStart: 54-34-7114Ypfwylpjtl ScreeningDepression Screening [facility] SystemStart: 01-55-9539Hdpl Risk ScreeningFall Risk Screening [facility] SystemStart: 66-85-0135Dxkdvfj ScreeningTobacco Screening [facility]tart: 39-13-0740Lxlet BMI ScreeningAdult BMI Screening [facility] SystemStart: 19-06-4357Aqvzisppin ScreeningDepression Screening [facility] SystemStart: 63-92-2255Xxyb Risk ScreeningFall Risk Screening [facility] SystemStart: 45-00-9351Cboklqg ScreeningTobacco Screening [facility]tart: 06-06-2024 End: 94-65-9172Fgexlyt encounter ntzhgwoxe77/03/2025 11:00 AM EDT [facility] [address] [place] [address] Carson De Jesus, [address] [place] [address] [facility]tart: 22-66-0159Pojlw BMI ScreeningAdult BMI ScreeningMetroHealth Parma Medical Center SystemStart: 97-49-2162Jzbihsbtfb ScreeningDepression ScreeningProMount St. Mary Hospital SystemStart: 80-65-9335Cngg Risk ScreeningFall Risk ScreeningMetroHealth Parma Medical Center SystemStart: 68-78-8716Aoepoqp ScreeningTobacco ScreeningMetroHealth Parma Medical Center SystemStart: 79-72-6005WVkT,Tdap and Td Vaccines (2 - Td or Tdap)DTaP,Tdap and Td Vaccines (2 - Td or Tdap)[facility] SystemStart: 97-90-3520Esrkl BMI ScreeningAdult BMI ScreeningProMount St. Mary Hospital SystemStart: 52-10-1767Htxwquhnej ScreeningDepression ScreeningProMount St. Mary Hospital SystemStart: 91-59-6814Ofme Risk ScreeningFall Risk ScreeningProMount St. Mary Hospital SystemStart: 95-92-0989Zojvuvb ScreeningTobacco ScreeningMetroHealth Parma Medical Center SystemStart: 03-26-2024 End: 43-94-9197Qdpyhoh encounter vjuxppwrm60/21/2025 1:30 PM EST [facility] [address] [place] [address] Carson De Jesus, [address], [facility] [place] [place] [address] [facility]ertart: 03-12-2024 End: 71-51-6422Xguqlcx encounter gkkjjehpy53/07/2025 4:00 PM EST Office Visit [facility] [address] [place] [address] Carson De Jesus DO [address] [place] [address] [facility]ertart: 02-22-2024 End: 65-00-0256cwcsctonjl01/19/2024 2:15 PM EST Support [facility] [address] [place] [address] Carson De Jesus, DO [address], [place] [address] [facility] MedicineStart: 51-14-5843Jocvx BMI ScreeningAdult BMI ScreeningMetroHealth Parma Medical Center SystemStart: 72-85-8295Qhuansdgsx ScreeningDepression ScreeningProMount St. Mary Hospital SystemStart: 75-40-8776Qsrp Risk ScreeningFall Risk ScreeningMetroHealth Parma Medical Center SystemStart: 53-82-0597Hkldvym ScreeningTobacco ScreeningProMount St. Mary Hospital SystemStart: 12-28-2023 End: 01-78-7906Cfxqyjt encounter ikfdvethr96/24/2024 1:00 PM EDT Office Visit [facility] [address] [place] [address] Carson De Jesus DO [address] [place] [address] [facility]tart: 07-52-1542Ntlfpjueb vaccinationInfluenza VaccineMetroHealth Parma Medical Center SystemStart: 10-10-2023 End: 67-66-3504Xzhjykv encounter gxoewywwh87/06/2024 2:20 PM EDT [facility] [address] [place] [address] WbzXtscly [facility]icians Internal [facility]tart: 10-10-2023 End: 86-84-4512Msifxoh encounter jiirnmxyx07/06/2024 10:40 AM EDT Office Visit [facility] [address] [place] [address] QanIfolra [facility]tart: 09-26-2023 End: 97-18-1543Gamjbfo encounter yykfbkqkt57/23/2024 1:45 PM EDT Office Visit [facility] [address] [place] [address] Carson De Jesus, DO [address], [facility] [place] [address] [facility] MedicineStart: 08-17-2023 End: 94-17-3275Emwndsa encounter dqugulsud31/13/2024 11:40 AM EDT Office Visit [facility] [address] [place] [address] [phone] Physicians Internal Medicine [facility] MedicineStart: 05-30-2024Medicare Annual Wellness VisitMedicare Annual Wellness VisitProMount St. Mary Hospital SystemStart: 88-58-6638Wodjojmnfokljo of varicella zoster vaccineZoster (Shingles) Vaccine (1 of 2)[facility] SystemComment on above:Postponed from 05/10/1966 (Patient Refused)Start: 05-19-2023 End: 41-59-8612Khorymc encounter nhvujnmul92/15/2024 11:50 AM EDT Office Visit [facility] [address] [place] [address] Yulia Hernández PA [address] [place] [address] [facility] DERMStart: 04-07-2023 End: 18-59-1386Jwytnyw encounter dpvrlgqon53/02/2024 10:20 AM EST Office Visit [facility] [address] [place] [address] Yulia Hernández PA [address] [place] [address] ArrivedNOMS TSR DERMComment on above:ArrivedStart: 03-30-2023 End: 14-13-5623AI Shoulder - left 2 ViewsX-ray shoulder left minimum 2 views Imaging Routine Chronic pain of both shoulders Expected: 03/30/2023, Expires: 03/30/2024[facility] Work Phone: Comment on above:Expected: 03/30/2023, Expires: 03/30/2024Start: 03-30-2023 End: 34-65-8680LP Shoulder - right 2 ViewsX-ray shoulder right minimum 2 views Imaging Routine Chronic pain of both shoulders Expected: 03/30/2023, Expires: 03/30/2024ProGood Samaritan HospitalAkimbo SystemComment on above:Expected: 03/30/2023, Expires: 03/30/2024Start: 03-07-2023 End: 68-82-3383Hchydjq encounter /02/2024 2:00 PM EST Appointment [facility] [address] [place] [address] [phone] [facility] RehabStart: 94-66-0433Atpswnwco for malignant neoplasm of colonColon Cancer Screening 3 Year CologuardProCooper Green Mercy Hospital The Parkme[facility] Grouptart: 23-85-4709Afgqngggaswrah of varicella zoster vaccineZoster (Shingles) Vaccine (1 of 2)[facility] The Park[facility] Grouptart: 13-29-3986Cnkli BMI Follow Up PlanAdult BMI Follow Up PlanOhioHealth Arthur G.H. Bing, MD, Cancer CenterAkimbo Huntington Hospitaltart: 1945 Tobacco CounselingTobacco CounselingMiami Valley HospitalCologuard Non-ProMedicaCologuard Non-[facility] Lab Routine Special screening for malignant neoplasm of colon Ordered: 06/03/2023roMeddemandmart Work Phone: Comment on above:Ordered: 06/03/2023 End: 74-11-5972Psgrkillxdbvw metabolic 2000 panel - Serum or PlasmaComprehensive metabolic panel Lab Routine 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 ([facility]) 1 Occurrences starting 06/06/2024 until 06/06/[email or web address] Work Phone: Comment on above:1 Occurrences starting 06/06/2024 until 06/06/2025 End: 23-87-2732Vthgc 1996 panel - Serum or PlasmaLipid profile Lab Routine Hyperlipidemia, unspecified hyperlipidemia type 1 Occurrences starting 05/2024 until 06/06/2025[facility] HospitalComment on above:1 Occurrences starting 06/06/2024 until 06/06/2025Renal function 1999 panel - Serum or Plasma [facility] - [facility] End: 71-51-6562Ymycfyf profile includes TSH YW5Telplxn profile includes TSH FT4 Lab Routine Acquired hypothyroidism 1 Occurrences starting 06/06/2024 until 06/06/2025[facility] HospitalComment on above:1 Occurrences starting 06/06/2024 until 06/06/2025[facility] Immunizations Immunization DateImmunizationNotesCare AlryfuopGznvjyui80-04-3395Rxjeqolx trivalent influenza vaccine, adjuvanted, preservative freeDennis Furlong DO Work Phone: [facility] HospitalQefcdp15-67-4736Jhebmqdvqsgr, In Clinic,; Translations: [Drug or medicament (substance)]Carson Furlong DO Work Phone: [facility] HospitalCddaep99-26-4157Obovkqhe trivalent influenza vaccine, adjuvanted, preservative freeDennis Furlong DO Work Phone: [facility] HospitalCvgsqh41-62-1765Vkvcslypgcxf, In Clinic,; Translations: [Drug or medicament (substance)]Carson Furlong DO Work Phone: [facility] HospitalNpredo02-50-1226yzxvroxdz virus vaccine, unspecified formulationDennis Furlong DO Work Phone: [facility] HospitalIlzini72-52-9162Uzjhoullm Vaccine, Quadrivalent, AdjuvantedBriana Kenya CARPENTERS SUPERVISOR-INFORMATION ASSURANCE SPECIALIST Work Phone: [facility] HospitalEshoca71-22-9287gwceevqtc virus vaccine, unspecified formulationDennis Furlong DO Work Phone: [facility] HospitalAqhuln24-04-0430auqsfmyir, high dose seasonal, preservative-freeBriana Kenya CARPENTERS SUPERVISOR-INFORMATION ASSURANCE SPECIALIST Work Phone: [facility] HospitalRyotcf19-58-9335hwxojmlgb, injectable, quadrivalent, preservative freeBriana Kenya CARPENTERS SUPERVISOR-INFORMATION ASSURANCE SPECIALIST Work Phone: [facility] HospitalNnmtwj93-87-1369Ttooinlj trivalent influenza vaccine, adjuvanted, preservative freeBriana Kenya CARPENTERS SUPERVISOR-INFORMATION ASSURANCE SPECIALIST Work Phone: [facility] HospitalFbzuay59-33-1681Zlszpzci trivalent influenza vaccine, adjuvanted, preservative freeBriana Kenya CARPENTERS SUPERVISOR-INFORMATION ASSURANCE SPECIALIST Work Phone: [facility] HospitalXbmkjq05-99-0938cdbygweel, injectable, quadrivalent, contains preservativeBriana Kenya CARPENTERS SUPERVISOR-INFORMATION ASSURANCE SPECIALIST Work Phone: [facility] HospitalWtoghm25-02-1111Ukonbjnn trivalent influenza vaccine, adjuvanted, preservative freeBriana Kenya CARPENTERS SUPERVISOR-INFORMATION ASSURANCE SPECIALIST Work Phone: [facility] HospitalBfhfnn24-51-7286ukineuuzd, injectable, quadrivalent, preservative freeBriana Kenya CARPENTERS SUPERVISOR-INFORMATION ASSURANCE SPECIALIST Work Phone: [facility] HospitalPxskja51-16-7961ftobohcrr, seasonal, injectableBriana Kenya CARPENTERS SUPERVISOR-INFORMATION ASSURANCE SPECIALIST Work Phone: [facility] HospitalCtwrtb84-81-0434lrbzltlfedwy polysaccharide vaccine, 23 valentBriana Kenya CARPENTERS SUPERVISOR-INFORMATION ASSURANCE SPECIALIST Work Phone: [facility] HospitalBnhkun70-42-1179aajhrizdc, high dose seasonal, preservative-freeBriana Kenya CARPENTERS SUPERVISOR-INFORMATION ASSURANCE SPECIALIST Work Phone: [facility] HospitalQkehoe35-03-6989fdtqnzjnslli conjugate vaccine, 13 valentBriana Kenya CARPENTERS SUPERVISOR-INFORMATION ASSURANCE SPECIALIST Work Phone: [facility] HospitalKfxmlp36-73-8567yxgasksjl, seasonal, injectable, preservative freeBriana Kenya CARPENTERS SUPERVISOR-INFORMATION ASSURANCE SPECIALIST Work Phone: [facility]02-05-2015tetanus toxoid, reduced diphtheria toxoid, and acellular pertussis vaccine, adsorbedBriana Kenya CARPENTERS SUPERVISOR-INFORMATION ASSURANCE SPECIALIST Work Phone: [facility] HospitalKcormc74-46-3207gvnpuevhd virus vaccine, unspecified formulationGood Dan CARPENTERS SUPERVISOR-INFORMATION ASSURANCE SPECIALIST Work Phone: [facility] HospitalHlcrcx90-42-4404lcsutulbbpmp conjugate vaccine, 13 valentGood Dan CARPENTERS SUPERVISOR-INFORMATION ASSURANCE SPECIALIST Work Phone: [facility] Payers DatePayer CategoryPayerPolicy [id number]-[id number] Health [id number] Medicare HMOHUMANA MEDICARE 1..[id number] [id number] 2..[id number] 2..1.977614.3.5[id number] 2..1.782581.3.57[id number] 2..1.936097.3.57[id number] 2..1.659549.3.57[id number] 2.16840.1.275033.3.57[id number] 2.840.1.220197.3.57[id number] 2.16840.1.326803.3.57[id number] 2.840.1.747006.3.57[id number] 2.0.1.849496.3.57[id number] 2..1.418970.3.57[id number] 2.0.1.198607.3.57[id number] 2.0.1.777550.3.57[id number] 2..1.500062.3.57[id number] 2..1.217481.3.57[id number] 2..1.123848.3.57[id number] 2.0.1.392598.3.57[id number] 2.840.1.465777.3.57[id number] 2.840.1.723342.3.57[id number] 2.16.840.1.940422.3.57[id number] 2.0.1.288659.3.57[id number] 2.0.1.988257.3.57[id number] 2.0.1.417630.3.57[id number] [id number] 2.840.1.614629.3.579.2.531 Social History DateTypeDetailFacilityStart: 07-18-2022 End: 55-92-1101Jmi Assigned At BirthUs[employer] Other Start: 39-15-4806Iytifdl smoking status NHISTobacco smoking consumption unknownNOMA HealthcareStart: 95-63-1931Vup Assigned At Not on fileProMount St. Mary Hospital SystemStart: 10-24-2023 End: 30-73-3911Tfafbqg smoking status NHISSmoker (finding)[facility]red Healthcaretart: 12-72-5534Slb Assigned At BirthZanesville City Hospitaltart: 11-16-2021 End: 01-46-0421Tewmauk smoking status NHISSmokes tobacco dailyProCooper Green Mercy Hospital Health SystemHistory of tobacco useCigarette SmokerProMount St. Mary Hospital SystemStart: 07-18-2022 End: 45-39-5301Qmzkoiwccf smoked current (pack per day) - Jagdmgkh2KheFkavel Health SystemStart: 11-16-2021 End: 49-98-7783Kibyuwb use and exposureSmokeless tobacco non-userProMount St. Mary Hospital SystemStart: 02-22-2024 End: 19-97-9103Ddopfzydg beverage intakeLifetime non-drinker (finding)[facility] easyOwn.it SystemHas the Fronto gas, oil, or water Matter and Form threatened to shut off services in your home in past 12MoNSelect Medical Specialty Hospital - YoungstownAre you now , , , , never or living with a partner? [facility] HospitalHow often to you have a drink containing alcohol?Monthly or lessMiami Valley HospitalHow many standard drinks containing alcohol do you have on a typical day?1 or 2PSouthview Medical Center SystemHow often do you have 6 or more drinks on 1 occasion?NeverMiami Valley HospitalHow hard is it for you to pay for the very basics like food, housing, medical care, and heatingNot hard at allMiami Valley HospitalDo you feel stress - tense, restless, nervous, or anxious, or unable to sleep at night because yourmind is troubled all the time - these days [OSQ]Only a littleUNC Health Rockinghamtart: 40-74-9299Btamtru CommentTrying to cut back-smoking about 1/2 PPD now but it depends; trying to quit so she can have shoulder replacement surgeryUNC Health Rockinghamtart: 10-09-2014 End: 75-93-0186NjzZytvrg (finding)[facility] Clinical Notes 10-07-2021 to 12-06-2024 Note Date & HgsaQxvyPwrgsrjz22-30-3278 History of Present illness Narrative* Carson De Jesus, DO - 12/06/2024 11:15 AM EDT Subjective Patient ID: Drea Tellez is a 79 y.o. female. Laquita presents today for a CV recheck. She is taking all of her medications. She does not have any side effects. She no longer takes lorazepam. She is still seeing pain clinic for her chronic back painin his using oxycodone. They are managing that. She still needs omeprazole daily. She has a pop addiction. She defers EGD and wants to try stop pop-diet coke. She notices that it is worse after that. She is taking rosuvastatin and tolerating that well. She is using trazodone 100 mg at bedtime and that is working well. She had labs done in October at [facility] from the cover making machine operator. The following portions of the patient's history [...] hypertension with stage 3a chronic kidney disease ([facility]) Blood pressure at goal. We will try to track down the labs at the cover making machine operator ordered for our records. Call we put out to the hospital to send the labs over. Gastroesophageal reflux disease without esophagitis Stable. Long-term risks of PPIs discussed. She will try to cut popped out of her diet. That is a goal of hers. Chronic obstructive pulmonary disease, unspecified COPD type ([facility]) - ofnptrhxyv-ehytazqp-ujojgncmfj (BREZTRI AEROSPHERE) 160-9-4.8 mcg/actuation HFA aerosol inhaler; [...] remain upright for 30min documented in this encounterMiami Valley Hospital08-07-2025 History of Present illness Narrative* Carson De Jesus DO - 10/10/2024 9:40 AM EDT Subjective SUBJECTIVE: Patient ID: Drea [...] Do you have a durable power of estate planning attorney?: Yes Cognitive Screening Do you have [...] 1 year (around 10/10/2025). documented in this [facility]04-09-2025 Miscellaneous Notes* Telephone Encounter - Alisa Fernandez CMA - 06/12/2024 10:41 AM EDT Patient called and wanted a referral to at [facility]. He specializes in shoulders. * Telephone Encounter - Carson De Jesus DO - 06/12/2024 10:41 AM EDT Okay. Referral is in documented in this [facility]04-09-2025 Telephone encounter Note* Telephone Encounter - Alisa Fernandez CMA - 06/12/2024 10:41 AM EDT Patient called and wanted a referral to at [facility]. He specializes in shoulders. [facility]04-09-2025 Telephone encounter Note* Telephone Encounter - Carson De Jesus DO - 06/12/2024 10:41 AM EDT Okay. Referral is in [facility] [id number] History of Present illness Narrative* Carson De Jesus DO - 06/06/2024 11:00 AM EDT Subjective Patient ID: Drea Tellez is a 79 y.o. female. Drea Tellez is 79 y.o. female that presents to clinic for CV recheck. She is taking her medications. She is not having any side effects. Her post herpetic neuralgia pain is better. She had labs done in March from the cover making machine operator. Her kidney tests have improved. She sees pain management. Patient is on 5mg oxycodone 5 times a day with benefit. She no longer takes lorazepam. Review of Systems Objective Physical Exam Vitals reviewed. Exam conducted with a metal fabricator welder present (Antonio Orozco MS 3). Constitutional: General: [...] panel, TSH and T4. Follow up with cover making machine operator as directed. Avoid NSAIDs. She is overweight. [...] years ago in 2005 from surgeon in [place] which showed hiatal hernia but her stomach was pristine . She may need another EGD if she is unable to get off the PPI. So far has no worrisome symptoms such as weight loss or dysphagia. She was encouraged to quit smoking as that is probably aggravating her GERD. Note composed in part by Antonio Orozco MS 3. documented in this encounterMiami Valley Hospital02-04-2025 Evaluation note* Diagnosis Onset Date Resolution Status Admit Date Anemia acuteFebruary 2024 10:54amBen hy kid w cr kid I-IVacuteFebruary 2024 10:54amChronic kidney disease, stage 3aacuteFebruary 2024 10:54am HyponatremiaacuteFebruary 2024 10:54amNephrolithiasisacuteFebruary 2024 10:54amSmoking greater than 40 pack yearsacuteFebruary 2024 10:54am Vitamin D deficiencyacuteFebruary 2024 10:54am [facility] Work Phone: 1(757) 262-660601-07-2025 History of Present illness Narrative* Carson De Jesus DO - 03/12/2024 4:00 PM EST Subjective [...] the Lidoderm patch. She did get an kcct-uvd-jsablff Biofreeze patch with mild benefit. She regrets [...] visit in 2 weeks. [facility]12[facility]24 Miscellaneous Notes* Telephone Encounter - Do Ryan - 03/04/2024 9:50 AM EST PATIENT WENT TO THE er MONDAY FOR HER SHINGLES, THEY ARE VERY PAINFUL AND BURNING. SHE IS TAKING TYLENOL BUT ITS NOT HELPING, SHE WAS WONDERING IF YOU COULD RECOMMEND SOMETHING TO HELP. COMES IN 03/12 * Telephone Encounter - Carson De Jesus DO - 03/04/2024 9:50 AM EST She [...] 9:50 AM EST Notified documented in this encounterMiami [facility]12-30-2024 Telephone encounter Note* Telephone Encounter - Do Ryan - 03/04/2024 9:50 AM EST PATIENT WENT TO THE er MONDAY FOR HER SHINGLES, THEY ARE VERY PAINFUL AND BURNING. SHE IS TAKING TYLENOL BUT ITS NOT HELPING, SHE WAS WONDERING IF YOU COULD RECOMMEND SOMETHING TO HELP. COMES IN 03/12 [facility] [email or web address] [id number] Telephone encounter Note* Telephone Encounter - Carson De Jesus DO - 03/04/2024 9:50 AM EST She can try a Lidoderm patch if the lesions are closed. She does have pain pills available and she can not take Motrin so there is not a whole lot more to offer. Pain management can do injections butI do not think she sees pain management anymore [facility]12-30-[facility] Telephone encounter Note* Telephone Encounter - Do Ryan - 03/04/2024 9:50 AM EST Notified [facility]11-27-2024 Miscellaneous Notes* Telephone Encounter - Sandra Hernandez CMA - 01/31/2024 12:45 PM EST Pt requesting refill on levothyroxine. [facility] [place]. documented in this encounterMiami [facility]11-27-2024 Telephone encounter Note* Telephone Encounter - Sandra Hernandez CMA - 01/31/2024 12:45 PM EST Pt requesting refill on levothyroxine. [facility] [place]. [facility]10-[facility] History of Present illness Narrative* Carson De Jesus DO - 12/28/2023 1:00 PM EDT Subjective Patient ID: Drea Tellez is a 78 y.o. female. Patient is using lorazepam mostly to help sleep. It does help her sleep. Pain keeps her awake when she has trouble sleeping. She is seeing pain management and they are now prescribing her oxycodone. Risks of benzodiazepines and opioids discussed. The cover making machine operator recommended to stop duloxetine if it wasn't [...] return for the scan. documented in this encounterMiami [facility] Hospital08-20-2024 Evaluation note* Diagnosis Onset Date Resolution Status Anemia acuteBen hy kid w cr kid I-IVacuteChronic kidney disease, stage 3aacute HyponatremiaacuteNephrolithiasisacuteVitamin D deficiencyacute [facility] Work Phone: 1(156) 807-693008-06-2024 History of Present illness Narrative* Carson De Jesus DO - 10/10/2023 10:40 AM EDT Subjective [...] Do you have a durable power of estate planning attorney?: Yes Cognitive Screening Do you have [...] 1 year (around 10/09/2024). documented in this encounterMi[facility] Hospital07-25-2024 Miscellaneous Notes* Telephone Encounter - Imani Leone - 09/28/2023 10:15 AM EDT Patient called to request pain management referral discussed at her last visit. documented in this encounterMi[facility]07-25-2024 Telephone encounter Note* Telephone Encounter - Imani Leone - 09/28/2023 10:15 AM EDT Patient called to request pain management referral discussed at her last visit. [facility] History of Present illness Narrative* Carson De Jesus DO - 09/26/2023 1:45 PM EDT Subjective [...] moderate relief and typically it does provide lrqk-ss-ochwpffn relief but she notes that it does [...] mouth in the morning. documented in this encounterMiami [facility] Hospital06-27-2024 History of Present illness Narrative* NIRANJAN Herrera - 08/31/2023 11:58 AM EDT The OARRS/MAPPS database was reviewed today and found to be appropriate. No indication of medication diversion, or non compliance. NIRANJAN Herrera 08/31/23 1159 documented in this encounterMiami [facility] Hospital06-20-2024 Miscellaneous Notes* Telephone Encounter - NIRANJAN Herrera - 08/24/2023 2:[address] De Jesus it looks like per OARRs that you have been prescribing this for her but she is due for an appointment Staff please set up controlled substance agreement by the end of September with me or Dr. De Jesus documented in this encounterMiami [facility]06-20-2024 Telephone encounter Note* Telephone Encounter - NIRANJAN Herrera - 08/24/2023 2:[address] De Jesus it looks like per OAs that you have been prescribing this for her but she is due for an appointment Staff please set up controlled substance agreement by the end of September with me or Dr. De Jesus [facility]06-[facility] Miscellaneous Notes* Telephone Encounter - Julisa De Jesus - 08/15/2023 4:13 PM EDT Called pt to remind her of MAW appointment August 16 at 1140. documented in this encounterMiami [facility] Hospital06-11-2024 Telephone encounter Note* Telephone Encounter - Julisa De Jesus - 08/15/2023 4:13 PM EDT Called pt to remind her of MAW appointment August 16 at 1140. [facility]04-[facility] Miscellaneous Notes* Telephone Encounter - Kim [...] plans to complete soon. documented in this encounterMiami [facility] Hospital04-26-2024 Telephone encounter Note* Telephone Encounter - [...] regarding cologuard. Patient plans to complete soon. [facility]04-[facility] History of Present illness Narrative* Carson De Jesus, - 06/28/2023 11:30 AM EDT Subjective Patient [...] earlier this year. She is seeing the cover making machine operator and her last labs showed her kidney [...] hypertension with stage 3a chronic kidney disease ([facility]) - Basic Metabolic Panel; Future Blood pressure essentially at goal. Check BMP. Follow-up with cover making machine operator as directed. Acquired hypothyroidism - Thyroid profile [...] cardiovascular events and strokes. documented in this encounterMiami Valley Hospital02-23-2024 History of Present illness Narrative* Good Dan APRN-INFORMATION ASSURANCE SPECIALIST - 04/28/2023 10:00 AM EST [address] [facility] [address] Patient: Drea Tellez Date of : 1945 [...] appointment with Orthopedics May 10 with from [place]. The current pain is bothering her enough where she can not get to sleep and it rarely 'let us up'. She feels like her Harrison barely takes the edge off her pain and she is also usingsome topical eniw-pgf-ndgxuwi analgesics. She was also participating in some [...] Hyperlipidemia Hypokalemia Migraine Osteopenia Peripheral vascular disease ([facility]) Screen for colon cancer 02/04/2020 cologuard-negative [...] by mouth every morning 90 tablet 1 is-ufn-opbak-calcium carb-K1 400 mcg-500 mg calcium-20 mcg tablet [...] or hospitalization) Allergies: Sulfa (sulfonamide antibiotics), Hydrochlorothiazide, Heeuowa-dgm-tua reductase inhibitors, and Nickel Tobacco History: Social [...] area. Discussed limits of Tylenol with taking Harrison. Parking pass renewed for the next 5 [...] HERRERA APRN-CNP 05/01/23 0902 documented in this encounterMiami Valley Hospital02-02-2024 History of Present illness Narrative* KRISTIN [...] limited to risks of scarring, darker or wire steward pigmentary changes, recurrence, incomplete removal and infection. 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 The pain has been going on for about 2 years or more but it has progressively worsened especially on the left side in the last 6 months. She has never received any injections in her shoulders that she can think of. She has no numbness or tingling in herarms. Problem List Items Addressed This Visit Cardiovascular and Mediastinum Peripheral vascular disease ([facility]) Genitourinary Stage 3b chronic kidney disease ([facility]) Other Visit Diagnoses [...] Hyperlipidemia Hypokalemia Migraine Osteopenia Peripheral vascular disease ([facility]) Screen for colon [...] by mouth every morning 90 tablet 1 at-vit-qwcvw-calcium carb-K1 400 mcg-500 mg calcium-20 mcg tablet [...] or hospitalization) Allergies: Sulfa (sulfonamide antibiotics), Hydrochlorothiazide, Luousij-zkw-ykx reductase inhibitors, and Nickel Tobacco History: Social [...] Drug Screen, Urine; Future Peripheral vascular disease ([facility]) Stage 3b chronic kidney disease ([facility]) Smoker Follow-up: Will obtain new x-rays bilateral shoulders, order sent to the [facility]. Agree with stopping physical therapy if it is not making the pain any better. Patient would like a referral to Orthopedics in [place], this was placed in system. She should [...] file.Pt is due for refill 2/3 - Harrison Rx placed for this specific date. At next appt, consider lowering dose to lowest effective dose to help control pain. NIRANJAN HERRERA APRN-CNP 04/02/23 1244 documented in this encounterOhioHealth Arthur G.H. Bing, MD, Cancer CenterMailFrontier Forest Health Medical [id number] Evaluation note* Encounter Date Diagnosis Assessment Notes [...] follow-up with the patient in 6 months. Mar,Hypertensive nephropathy (ICD-10 - I12.9)Blood pressure seems reasonable and close to target. Okay to continue same blood pressure medications for now. I asked the patient to monitor her blood pressure at home and to follow low-salt diet Mar,nemia, unspecified type (ICD-10 - D64.9)Hemoglobin 12.3 g deciliter. I asked the patient to continue OTC iron supplement Mar,Vitamin D deficiency (ICD-10 - E55.9)25-hydroxy vitamin D is WNL I asked the patient to continue qjxo-zud-kspyfpd vitamin D supplement 1999Mar,Nephrolithiasis (ICD-10 - N20.0)Renal ultrasound shows nonobstructive bilateral renal calculi which are small in size. I asked the p atient to continue ample water intake [employer] Other [id number] History of Present illness Narrative* NIRANJAN Herrera - 03/03/2023 1:29 PM EST The OARRS/MAPPS database was reviewed today and found to be appropriate. No indication of medication diversion, or non compliance. Pt is due for refill 03/11/22, last filled 02/08/[address] De Jesus who is out of town. NIRANJAN Herrera 03/03/23 1332 documented in this [facility]12-28-2023 Miscellaneous Notes* Telephone Encounter - Farnaz Bennett CMA - 03/02/2023 2:51 PM EST Pt called and would like a refill on her NORCO. Pharmacy is listed and correct. * Telephone Encounter - NIRANJAN Herrera - 03/02/2023 2:51 PM EST Pt is due for refill 03/11 - I will send but pharmacy will not fill until this time documented in this [facility]12-28-2023 Telephone encounter Note* Telephone Encounter - Farnaz Bennett CMA - 03/02/2023 2:51 PM EST Pt called and would like a refill on her NORCO. Pharmacy is listed and correct. [facility]12-28-2023 Telephone encounter Note* Telephone Encounter - NIRANJAN Herrera - 03/02/2023 2:51 PM EST Pt is due for refill 03/11 - I will send but pharmacy will not fill until this time [facility]08-08-2023 Evaluation note* Encounter Date Diagnosis Assessment Notes [...] follow-up with the patient in 6 months. Oct,Hypertensive nephropathy (ICD-10 - I12.9)Blood pressure seems reasonable and close to target. Okay to continue same blood pressure medications for now. I asked the patient to monitor her blood pressure at home and to follow low-salt diet Oct,nemia, unspecified type (ICD-10 - D64.9)Hemoglobin 11.2 g deciliter. has iron def. I asked the patient to take OTC iron supplement Oct,Vitamin D deficiency (ICD-10 - E55.9)25-hydroxy vitamin D is WNL I asked the patient to continue kluk-qys-nwbaccw vitamin D supplement 1999Oct,Nephrolithiasis (ICD-10 - N20.0)Renal ultrasound shows nonobstructive bilateral renal calculi which are small in size. I asked the p atient to continue ample water intake [employer] Other 04-04-2023 Evaluation note* Encounter Date Diagnosis [...] follow-up with the patient in 4 months. Jun,Hypertensive nephropathy (ICD-10 - I12.9)Blood pressure seems reasonable and close to target. Okay to continue same blood pressure medications for now. I asked the patient to monitor her blood pressure at home and to follow low-salt diet Jun,nemia, unspecified type (ICD-10 - D64.9)Hemoglobin 10.8 g deciliter. I will check iron studies along with vitamin B12 and folate next visit Jun,Vitamin D deficiency (ICD-10 - E55.9)25-hydroxy vitamin D is low at 19. I patient with ivcc-rxh-zhokxiv vitamin D supplement 1999Jun,Nephrolithiasis (ICD-10 - N20.0)Renal ultrasound shows nonobstructive bilateral renal calculi which are small in size. I asked the p atient to continue ample water intake [employer] Other 02-21-2023 Evaluation note* Encounter Date Diagnosis Assessment Notes Treatment Notes Treatment Clinical Notes Apr, Chronic kidney disease, stage IV (severe) (ICD-10 - N18.4) Likely from hypertensive nephropathy and history of NSAID use. Serum creatinine last month 2.4 and GFR 20. I asked the patient patient to stop NSAIDs completely and to hydrate herself well. I am okayto continue lisinopril for now but we might have to stop it next visit if kidney function worse Blood pressure and volume status are okay. No need for NSAIDs. I will do renal ultrasound along with bone mineral disease blood work. I will follow-up with the patient 2 months Apr,Hypertensive nephropathy (ICD-10 - I12.9)Blood pressure seems reasonable and close to target. Okay to continue same blood pressure medications for now. I asked the patient to monitor her blood pressure at home and to follow low-salt diet [employer] Other 09-01-2022 NoteOPERATIVE NOTE OPERATION DATE: 11/04/2021 SURGEON: Sabrina Downs M.D. PREOPERATIVE DIAGNOSIS: Nuclear sclerotic cataract right [...] ensuring mobility, phacoemulsification was performed in a lbyexdu-rxy-vckvul-type fashion. After all nuclear material had been [...] up the following day for postoperative care.[facility] [id number] NoteHISTORY AND PHYSICAL EXAMINATION Date:11/03/2021 HISTORY: Patient [...] decline other than that of cataract. 2. [id number] patient was briefed in the office and [...] and go forward with this elective procedure.[facility] [id number] NoteOPERATIVE NOTE OPERATION DATE: 10/07/2021 SURGEON: Sabrina Downs D.O. PREOPERATIVE DIAGNOSIS: Nuclear sclerotic cataract left [...] ensuring mobility, phacoemulsification was performed in a lpgaaac-zzw-qsvwcm-type fashion. After all nuclear material had been [...] up the following day for postoperative care.[facility] 10-07-2021 NoteHISTORY AND PHYSICAL EXAMINATION Date:10/06/2021 [...] decline other than that of cataract. 2. 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 documented in [facility] encounter [facility]* Diagnosis Lumbosacral spondylosis without myelopathy documented in this encounter [facility]* Diagnosis Chronic pain of both shoulders- Primary Peripheral vascular disease ([facility]) Unspecified peripheral vascular disease Stage 3b chronic kidney disease ([facility]) Smoker Tobacco use disorder Lumbosacral spondylosis without myelopathy documented in this encounter [facility]* Diagnosis Essential hypertension Unspecified essential hypertension documented in this encounter [facility]* Diagnosis Primary osteoarthritis of both shoulders- Primary Tobacco dependence syndrome Tobacco use disorder Lumbosacral spondylosis without myelopathy documented in this encounter [facility]* Diagnosis Lumbosacral spondylosis without myelopathy documented in this encounter [facility]* Diagnosis Lumbosacral spondylosis without myelopathy documented in this encounter [facility]* Diagnosis Special screening for malignant neoplasm of colon- Primary Special screening for malignant neoplasms, colon documented in this encounter [facility]* Diagnosis 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 ([facility])- Primary Acquired hypothyroidism Unspecified hypothyroidism Fibromyalgia Unspecified myalgia and myositis Anxiety Anxiety state, unspecified Postlaminectomy syndrome, not elsewhere classified Sleep disturbance Unspecified sleep disturbance Tobacco dependence syndrome Tobacco use disorder Spinal stenosis of lumbar region without neurogenic claudication Hypokalemia Hypopotassemia Hyperlipidemia, unspecified hyperlipidemia type documented in this encounter [facility]* Diagnosis Postlaminectomy syndrome, not elsewhere classified- Primary documented in this encounter [facility]* Diagnosis Postlaminectomy syndrome, not elsewhere classified documented in this encounter [facility]* Diagnosis Postlaminectomy syndrome, not elsewhere classified documented in this encounter [facility]* Diagnosis Fibromyalgia Unspecified myalgia and myositis documented in this encounter [facility]* Diagnosis Essential hypertension Unspecified essential hypertension documented in this encounter [facility]* Diagnosis Anxiety Anxiety state, unspecified documented in this encounter [facility]* Diagnosis Localized osteoarthrosis of both shoulder regions- Primary Postlaminectomy syndrome, not elsewhere classified Tobacco dependence syndrome Tobacco use disorder Fibromyalgia Unspecified myalgia and myositis documented in this encounter [facility]* Diagnosis Medicare annual wellness visit, subsequent- Primary Screening for depression documented in this encounter [facility]* Diagnosis Anxiety- Primary Anxiety state, unspecified Sleep disturbance Unspecified sleep disturbance Cigarette smoker Tobacco use disorder Need for immunization against influenza Need for prophylactic vaccination and inoculation against influenza Fibromyalgia Unspecified myalgia and myositis Postlaminectomy syndrome, not elsewhere classified Hyperlipidemia, unspecified hyperlipidemia type documented in this encounter [facility]* Diagnosis Essential hypertension Unspecified essential hypertension [facility] Diagnosis 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 ([facility])- Primary Gastroesophageal reflux disease without esophagitis Esophageal reflux Acquired hypothyroidism Unspecified hypothyroidism Hyperlipidemia, unspecified hyperlipidemia type Hiatal hernia Diaphragmatic hernia without mention of obstruction or gangrene Overweight (BMI 25.0-29.9) Overweight documented in this encounter [facility]* Diagnosis Primary osteoarthritis of both shoulders- Primary documented in this encounter [facility]* Diagnosis Medicare annual wellness visit, subsequent- Primary Screening for depression documented in this encounter [facility]* Diagnosis 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 ([facility])- Primary Gastroesophageal reflux disease without esophagitis Esophageal reflux Chronic obstructive pulmonary disease, unspecified COPD type ([facility]) Sleep disturbance Unspecified sleep disturbance Need for immunization against influenza Need for prophylactic vaccination and inoculation against influenza documented in this encounter [facility] general Narrative - Reported* Type Description Date Medical History Appendicitis Medical HistoryArthritisMedical HistoryHigh cholesterol (under control with diet and Niacin)Medical HistoryBasal cell cancerMedical HistoryFibromyalgiaMedical HistoryMigrane headachesMedical HistoryAnxiety (under control)Surgical History2 back surgeriesSurgical HistoryTonsilsSurgical HistoryAppendix (several laprascopies)Surgical HistoryCarpal tunnel- both handsSurgical HistoryBreast biopsy (augmentation)Surgical HistoryHysterectomySurgical HistoryPosterior Lumbar Decompression- Dr. Shepherd02/2018Surgical Historycataract [id number] Hospitalization HistorySee Sx [employer] Other History general Narrative - Reported* Type Description Date Medical History Appendicitis Medical HistoryArthritisMedical HistoryHigh cholesterol (under control with diet and Niacin)Medical HistoryBasal cell cancerMedical HistoryFibromyalgiaMedical HistoryMigrane headachesMedical HistoryAnxiety (under control)Medical History2 TORN ROTATOR CUFFSSurgical History2 back surgeriesSurgical HistoryTonsils Surgical HistoryAppendix (several laprascopies)Surgical HistoryCarpal tunnel- both handsSurgical HistoryBreast biopsy (augmentation)Surgical History HysterectomySurgical HistoryPosterior Lumbar Decompression- Dr. Surgical Historycataract [id number] HistorySKIN CANCER BIOPSY ON NOSEHospitalization HistorySee Sx Hx [employer] Other InstructionsNot on filedocumented in this encounter [...] Care Everywhere. * Shoulder Pain Discharge Instructions (Somali) documented in this encounterProMedica Health SystemInstructionsNot on file documented in this encounterProMedica Health SystemInstructions* Attachments The following attachments cannot be sent through Care Everywhere. 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 ASSURANCE SPECIALIST [address] [place] [address] Rosales Hylton MD [address] [place] [address] Referral IDStatusReasonStgulston DateExpiration DateVisits RequestedVisits [id number] Review Specialty Services Required / [facility] Summary Purpose Family History Relationship Condition Age at Onset Recorded Date/T anne father Malignant neoplasm Unknown DeceasedUnknownHeart diseaseUnknownfamily memberDeceasedUnknownmotherDiabetes mellitusUnknownHypertensionUnknownsonDeceasedUnknownsisterMalignant neoplasm Unknown Advance Directives Advance Directive Response [...] April 09, 2024 10:54am Reason for Referral SpecialtyDiagnoses / ProceduresReferred By ContactReferred To Contact Diagnoses Anxiety Carson De Jesus G, DO [address], [place] [address] Referral IDStatusReasonStart DateExpiration DateVisits RequestedVisits [id number] / ProceduresReferred By ContactReferred To Contact Diagnoses Lumbosacral spondylosis without myelopathy Procedures Disability/Handicap Good Tran APRN-INFORMATION ASSURANCE SPECIALIST [address] [place] [address] Referral IDStatusReasonStart DateExpiration DateVisits RequestedVisits [id number] Review/ Additional Source Comments INFORMATION SOURCE (unrecogn ized section and content) DATE CREATED AUTHOR 05/30/2021 [facility] DATE CREATED AUTHOR AUTHOR'S ORGANIZ ATION 06/10/2022 [facility] DATE CREATED AUTHOR AUTHOR'S ORGANIZ ATION 04/09/2023 [facility] DATE CREATED AUTHOR AUTHOR'S ORGANIZ ATION 05/14/2023 [facility] DATE CREATED AUTHOR AUTHOR'S ORGANIZ ATION 07/16/2023 [facility] EP[facility] DATE CREATED AUTHOR AUTHOR'S ORGANIZ ATION 12/31/2023 [facility] DATE CREATED AUTHOR AUTHOR'S ORGANIZ ATION 06/09/2024 [facility] DATE CREATED AUTHOR AUTHOR'S ORGANIZ ATION 12/10/2024 [facility] REASON FOR VISIT (unrecogniz ed section and content) ReasonCommentsFollow-upReasonCommentsHerpes ZostershinglesReasonCommentsMed RefillReasonCommentsFollow-upFollow up shouldersReasonOnset DateCommentsMed [id number] PainFlare upReasonOnset DateCommentsMed [id number]onHypothyroidismReasonOnset DateComments Preventative Dfmniufqs54/26/2024ReasonOnset DateCommentsMed Wynpvz0907/26/2023 ReasonOnset DateCommentsMed [id number] DateCommentsMed Refill 4ReasonCommentscontrolled subReasonCommentsMAWReasonCommentscontrolled ReasonCommentsHypertensionReasonCommentsmawReasonCommentsFollow-upControlled medications Care Teams (unrecognized sec tion and content) Team Status: Active Member Role Status Dates Carson De Jesus DO Primary Care Provider Active Team Status: Active Member Role Status Dates Carson De Jesus DO Primary Care Provider Active Start: October 17, 2023 Bri Alonso MDAttending ProviderActiveStart: October 17, 2023 Team Status: Inactive Member Role Status Dates Carson De Jesus DO Primary Care Provider Active Start: October 24, 2023 End: October 23neisha Jolesliehadley MDAttending ProviderActiveStart: October 24, 2023 End: October 24, 2023Team MemberRelationshipSpecialtyStart DateEnd Date Carson De Jesus DO [address] [place] [address] PCP - [facility]02/14/17Team MemberRelationshipSpecialtyStart Date End Date Carson De Jesus DO [address] [place] [address] PCP - [facility]02/14/17Team MemberRelationshipSpecialtyStart Date End Date Carson De Jesus DO [address] [place] [address] PCP - [facility]02/14/17 Team Status: Active Member Role Status Dates Carson De Jesus DO Primary Care Provider Active Start: April 02, 2024 Lee Harrisending ProviderActiveStart: April 02, 2024 Team Status: Inactive Member Role Status Dates Carson De Jesus DO Primary Care Provider Active Start: April 09, 2024 End: April 09neisha Alonso MDAttending ProviderActiveStart: April 09, 2024 End: April 09, 2024Team MemberRelationshipSpecialtyStart DateEnd Date Carson De Jesus DO [address] [place] [address] PCP - [facility] Bbzhmkou84/12/17Team MemberRelationshipSpecialtyStart Date End Date Carson De Jesus DO [address], [place] [address] PCP - Generalmily Uapdteom72/12/17Team MemberRelationshipSpecialtyStart Date End Date Carson De Jesus DO [address], [place] [address] PCP - Generalmily Eenwuyax15/12/17Team MemberRelationshipSpecialtyStart Date End Date Carson De Jesus DO [address], [place] [address] PCP - Generalmily Ptnqnkbo05/12/17Team MemberRelationshipSpecialtyStart Date End Date Carson De Jesus DO [address], [place] [address] PCP - Generalmily Xyvhshgn11/12/17Team MemberRelationshipSpecialtyStart Date End Date Carson De Jesus DO [address], [place] [address] PCP - Generalmily Hohsyycz51/12/17Team MemberRelationshipSpecialtyStart Date End Date Carson De Jesus DO [address] [place] [address] PCP - Generalmily Gdyxcjes10/12/17Team MemberRelationshipSpecialtyStart Date End Date Carson De Jesus DO [address], [place] [address] [facility] Wfxzpcol42/12/17Team MemberRelationshipSpecialtyStart Date End Date Carson De Jesus DO [address], [place] [address] PCP - [facility] Jsgpxoyt69/12/17Team MemberRelationshipSpecialtyStart Date End Date Carson De Jesus DO [address], [place] [address] PCP - [facility] Khexmgnx34/12/17Team MemberRelationshipSpecialtyStart Date End Date Carson De Jesus DO [address], [place] [address] PCP - [facility] Krjqzevu08/12/17Team MemberRelationshipSpecialtyStart Date End Date Carson De Jesus DO [address], [place] [address] [facility] Zkiotmoq82/12/17Team MemberRelationshipSpecialtyStart Date End Date Carson De Jesus DO [address], [place] [address] [facility] Ejxfvqif15/12/17Team MemberRelationshipSpecialtyStart Date End Date Carson De Jesus DO [address], [place] [address] [facility] Member[facility]hipSpecialtyStart Date End Date Carson De Jesus DO [address], [place] [address] [facility]02/14/17Te MemberRelationshipSpecialtyStart Date End Date Carson De Jesus DO [address], [place] [address] [facility]02/14/17Te MemberRelationshipSpecialtyStart Date End Date Carson De Jesus DO [address], [place] [address] [facility] - [facility]02/14/17 Goals (unrecognized section and content) Goals may [...] BE BASED ON THE PRIMARY CLINICAL RECORDS. xiao qu wu you [facility]. provides no warranty or guarantee of the accuracy or completeness of information in this document.
[2025-01-24 13:11] LABS: Hematocrit 40.9 % (36.0-48.0); Hemoglobin 13.8 g/dL (12.0-16.0); Mean Corpuscular HGB Conc 33.7 g/dL (29.9-35.2); Mean Corpuscular Hemoglobin 32.3 pg (26.7-34.0); Mean Corpuscular Volume 95.8 fL (81.0-99.0); Platelet Count 288 10^3/uL (150-450); Red Blood Count 4.27 10^6/uL (4.20-5.40); White Blood Count 8.3 10^3/uL (4.0-11.0)
[2025-01-24 13:21] LABS: Glucose Urine UA NEGATIVE (NEGATIVE)
[2025-01-24 13:27] LABS: Magnesium 2.1 mg/dL (1.8-2.4)
[2025-01-24 13:27] LABS: Protein Creatinine Ratio Urine 0.22; Total Protein Urine Random 18.4 mg/dL (<=11.9)
== END 2025-01-24 12:34 | disposition home or self-care (01) ==
LOC: LAB 12:35
PROVIDERS: PCP Family Medicine; Visit Provider Internal Medicine Nephrology
DX: N20.0 Calculus of kidney (principal); F17.210 Nicotine dependence, cigarettes, uncomplicated; E87.1 Hypo-osmolality and hyponatremia; E55.9 Vitamin D deficiency, unspecified; D64.9 Anemia, unspecified; N18.31 Chronic kidney disease, stage 3a
CPT/HCPCS: 36415; 81003; 82306; 82570; 83735; 83970; 84156; 85027